=== PATIENT | male | born 1945 | race Caucasian/White ===

== ENCOUNTER 2020-04-02 13:02 | Emergency (ER) | payer OTHER, SELFPAY ==
--- NOTE | ~2020-04-02 | XR_ITS ---
EXAMINATION: CHEST, LEFT HIP, AND LUMBAR SPINE. CLINICAL INFORMATION: Weakness and pain. COMPARISON: Chest x-ray of December 01, 2017 TECHNIQUE: AP and lateral chest, 3 view lumbar spine, and AP pelvis and 2 views of the left hip. FINDINGS: AP and lateral views of the chest demonstrate chronic left base pleural-parenchymal scarring. No acute parenchymal disease, pneumothorax, or pleural effusion. Cardiopericardial silhouette is mildly enlarged. No evidence of pulmonary edema. 3 views of the lumbar spine demonstrate 5 nonrib-bearing lumbar vertebra. No acute fracture, spondylolisthesis, spondylolysis is appreciated. There is significant narrowing of the L4-L5 and L5-S1 disc spaces with bilateral facet arthropathy L4-S1. There is partial lumbarization of S1. Degenerative marginal spurring is seen at multiple levels. No destructive bony lesions appreciated. There is no evidence of acute fracture or diastases of the pelvis. No definite fusion or widening of the sacroiliac joints. Changes of enthesopathy seen about the pelvis. No destructive bony lesions are identified. Hip joint spaces appear maintained with some mild collar spurring. 2 views of the left hip demonstrate a sclerotic lesion within the femoral head most likely representing a bone island and not typical appearance of avascular ischemic necrosis. No femoral head flattening is seen and no lucency is appreciated. Hip joint space maintained. No acute fracture or dislocation. XR/XR lumbar spine 2-3V IMPRESSION: No acute parenchymal disease within the chest. Lumbar spondylosis most prominent L4-S1. No acute fracture, spondylolisthesis, or spondylolysis. No acute fracture or diastases of the pelvis. No acute fracture or dislocation of the left hip.
--- NOTE | ~2020-04-02 | CT_ITS ---
EXAMINATION: CT ABDOMEN AND PELVIS WITHOUT CONTRAST CLINICAL INFORMATION: Abdominal pain and distention. COMPARISON: 08/21/2011. Renal ultrasound 07/19/2016. TECHNIQUE: Multidetector volumetric imaging was performed from the superior aspect of the liver through the pubic symphysis. Sagittal and coronal reformatted images were obtained on the technologist's workstation. This CT examination was performed using dose optimization techniques as appropriate, variously including the following: *Automated exposure control *Adjustment of mA and/or kV according to patient size (this includes techniques or standardized protocols for targeted exams where dose is matched to indication/reason for exam; i.e. extremities or head) *Use of iterative reconstruction technique DLP: 1291 mGy-cm FINDINGS: LUNG BASES: Bibasilar atelectasis. The visualized cardiac structures are unremarkable. LIVER, GALLBLADDER, AND BILIARY TREE: The liver is normal in size, shape, and attenuation. No focal hepatic lesion or biliary ductal dilatation is present. The gallbladder is unremarkable with no evidence of radiopaque gallstones, gallbladder wall thickening, or obvious pericholecystic inflammatory changes. PANCREAS: Unremarkable. SPLEEN: Unremarkable. ADRENAL GLANDS: Unremarkable. KIDNEYS AND URETERS: The kidneys are normal in size, shape, and attenuation. No hydronephrosis, hydroureter, or calculi seen. No perinephric stranding. Multiple right-sided renal cysts. Questionable left lower pole cortical lesion measuring 3 cm. This likely corresponds to the cyst seen on the prior ultrasound from 2016. Right lower pole 0.3 cm calculus is 12.5 cm from the posterior axillary line. BLADDER: Unremarkable. GASTROINTESTINAL TRACT: The stomach is distended without wall thickening. The small bowel is normal in caliber. No obstruction. No colonic wall thickening or inflammatory change. Prominent stool in the rectum. Normal appendix. No free air or free fluid. ABDOMINAL WALL: Fat-containing left inguinal hernia. LYMPH NODES: Normal. VASCULAR: Normal caliber aorta with mild atherosclerotic calcification. PELVIC VISCERA: Significantly enlarged prostate impinging upon the bladder. The prostate measures 7.7 cm transverse. The seminal vesicles are unremarkable. OSSEOUS STRUCTURES: No acute or suspicious osseous abnormality. Degenerative changes of the spine. DISH. Degenerative changes at both hips. CT/CT abdomen pelvis wo con IMPRESSION: No acute finding of the abdomen or pelvis. Multiple right renal cysts. Cortical lesion of the lower pole of the left kidney likely corresponds to the cyst seen on previous ultrasound, but could be reevaluated on ultrasound given the indeterminate appearance on the CT. Gaseous distention of the stomach without wall thickening. Prominent stool in the rectum. Prostatomegaly.
--- NOTE | ~2020-04-02 | XR_ITS ---
EXAMINATION: CHEST, LEFT HIP, AND LUMBAR SPINE. CLINICAL INFORMATION: Weakness and pain. COMPARISON: Chest x-ray of December 01, 2017 TECHNIQUE: AP and lateral chest, 3 view lumbar spine, and AP pelvis and 2 views of the left hip. FINDINGS: AP and lateral views of the chest demonstrate chronic left base pleural-parenchymal scarring. No acute parenchymal disease, pneumothorax, or pleural effusion. Cardiopericardial silhouette is mildly enlarged. No evidence of pulmonary edema. 3 views of the lumbar spine demonstrate 5 nonrib-bearing lumbar vertebra. No acute fracture, spondylolisthesis, spondylolysis is appreciated. There is significant narrowing of the L4-L5 and L5-S1 disc spaces with bilateral facet arthropathy L4-S1. There is partial lumbarization of S1. Degenerative marginal spurring is seen at multiple levels. No destructive bony lesions appreciated. There is no evidence of acute fracture or diastases of the pelvis. No definite fusion or widening of the sacroiliac joints. Changes of enthesopathy seen about the pelvis. No destructive bony lesions are identified. Hip joint spaces appear maintained with some mild collar spurring. 2 views of the left hip demonstrate a sclerotic lesion within the femoral head most likely representing a bone island and not typical appearance of avascular ischemic necrosis. No femoral head flattening is seen and no lucency is appreciated. Hip joint space maintained. No acute fracture or dislocation. XR/XR chest 2V IMPRESSION: No acute parenchymal disease within the chest. Lumbar spondylosis most prominent L4-S1. No acute fracture, spondylolisthesis, or spondylolysis. No acute fracture or diastases of the pelvis. No acute fracture or dislocation of the left hip.
--- NOTE | ~2020-04-02 | XR_ITS ---
EXAMINATION: CHEST, LEFT HIP, AND LUMBAR SPINE. CLINICAL INFORMATION: Weakness and pain. COMPARISON: Chest x-ray of December 01, 2017 TECHNIQUE: AP and lateral chest, 3 view lumbar spine, and AP pelvis and 2 views of the left hip. FINDINGS: AP and lateral views of the chest demonstrate chronic left base pleural-parenchymal scarring. No acute parenchymal disease, pneumothorax, or pleural effusion. Cardiopericardial silhouette is mildly enlarged. No evidence of pulmonary edema. 3 views of the lumbar spine demonstrate 5 nonrib-bearing lumbar vertebra. No acute fracture, spondylolisthesis, spondylolysis is appreciated. There is significant narrowing of the L4-L5 and L5-S1 disc spaces with bilateral facet arthropathy L4-S1. There is partial lumbarization of S1. Degenerative marginal spurring is seen at multiple levels. No destructive bony lesions appreciated. There is no evidence of acute fracture or diastases of the pelvis. No definite fusion or widening of the sacroiliac joints. Changes of enthesopathy seen about the pelvis. No destructive bony lesions are identified. Hip joint spaces appear maintained with some mild collar spurring. 2 views of the left hip demonstrate a sclerotic lesion within the femoral head most likely representing a bone island and not typical appearance of avascular ischemic necrosis. No femoral head flattening is seen and no lucency is appreciated. Hip joint space maintained. No acute fracture or dislocation. XR/XR hip LT w PEL1V IMPRESSION: No acute parenchymal disease within the chest. Lumbar spondylosis most prominent L4-S1. No acute fracture, spondylolisthesis, or spondylolysis. No acute fracture or diastases of the pelvis. No acute fracture or dislocation of the left hip.
--- NOTE | ~2020-04-02 | CT_ITS ---
EXAMINATION: CT HIP WITHOUT CONTRAST, LEFT CLINICAL INFORMATION: Pain. Evaluate for a fracture. COMPARISON: Left hip radiographs done earlier the same day. TECHNIQUE: Contiguous axial CT images of the left hip were obtained without contrast. Coronal and sagittal reformats were provided and reviewed. This CT examination was performed using dose optimization techniques as appropriate, variously including the following: *Automated exposure control *Adjustment of mA and/or kV according to patient size (this includes techniques or standardized protocols for targeted exams where dose is matched to indication/reason for exam; i.e. extremities or head) *Use of iterative reconstruction technique DLP: 453 mGy-cm FINDINGS: No acute fracture or dislocation. Mild to moderate left hip joint space narrowing with marginal osteophytes. Mild degenerative arthritis at the symphysis pubis. Moderate degenerative arthritis at the left sacroiliac joint. Subchondral cystic change at the left acetabulum. Focal sclerosis within the anterior left femoral head. No concerning lytic or blastic osseous lesion. No abnormal soft tissue mass or fluid collection. Prominent stool within the rectum. Otherwise, the visualized pelvic structures are unremarkable. Fat-containing left inguinal hernia. CT/CT hip LT wo con IMPRESSION: No acute fracture or dislocation. Moderate left hip osteoarthritis. Moderate left sacroiliac joint and more mild sepsis pubis degenerative arthritis. Prominent stool within the rectum.
--- NOTE | 2020-04-02 13:32 | ECG_ITS ---
Test Reason : WEAKNESS Blood Pressure : / mmHG Vent. Rate : 060 BPM Atrial Rate : 060 BPM P-R Int : 190 ms QRS Dur : 122 ms QT Int : 452 ms P-R-T Axes : -04 -36 086 degrees QTc Int : 452 ms Sinus rhythm with Premature supraventricular complexes Left axis deviation Left ventricular hypertrophy with QRS widening and repolarization abnormality Abnormal ECG When compared with ECG of 01-DEC-2017 14:19, Premature supraventricular complexes are now Present Non-specific change in ST segment in Inferior leads Referred By: Lainey Wright Electronically Signed By:JOSE STEVENS MD
[2020-04-02 13:34] VITALS: BP 139/68; PULSE 53; RESP 17; TEMP 36.6; O2SAT 94; BMI 41.3
--- NOTE | 2020-04-02 13:35 | ED_ITS ---
HPI - General Adult General Chief complaint: Extremity Injury, Lower <Lainey Wright NP - Last Filed: 04/02/20 19:42> Stated complaint: LEFT HIP PAIN <Lainey Wright NP - Last Filed: 04/02/20 19:42> Time Seen by Provider: 04/02/20 13:05 <Lainey Wrihgt NP - Last Filed: 04/02/20 19:42> Source: patient and EMS <Lainey Wright NP - Last Filed: 04/02/20 19:42> Mode of arrival: EMS <Lainey Wright NP - Last Filed: 04/02/20 19:42> Limitations: no limitations <Lainey Wright NP - Last Filed: 04/02/20 19:42> History of Present Illness HPI narrative: 74-year-old male coming from home with a past medical history of anxiety, depression, hypertension here with complaints of left-sided hip pain times several days. The patient tells me that 2 days ago he was walking with his walker and he lost his balance causing a twisting motion of his lower back and hip. He did not fall to the ground. There was no head injury or loss of consciousness. He tells me since then he has had left buttocks and left hip pain and has been unable to bear weight on that side. Tells me he has been sitting in a recliner. He did have his son come visit him yesterday who brought him a sandwich and he ate that with a small glass of water but nothing else yesterday. Today the home care nurses came to his house and made him breakfast and give him something to drink and recommended transfer to the hospital as he was unable to get up on his own. The patient tells me that he has been in his recliner for the last 48 hours. He tells me he has been unable to get up to use the bathroom and has been incontinent of urine. He is also complaining of some mild weakness which is generalized. No fever, chest pain, shortness of breath, abdominal pain, vomiting, diarrhea. Pain radiates from left buttocks the left hip. There is no back pain. Taking Tylenol home with continued symptoms. No saddle anesthesia. No numbness or tingling. No fevers or chills. Patient lives alone. <Lainey Wright NP - Last Filed: 04/02/20 19:42> Onset (ago): day(s) <Lainey Wright NP - Last Filed: 04/02/20 19:42> Related Data Home medications: Home Medications Medication Instructions Recorded Confirmed Wellbutrin 150 mg PO BID 04/02/20 04/02/20 Xanax 0.25 mg PO TID PRN 04/02/20 04/02/20 amlodipine 5 mg PO DAILY 04/02/20 04/02/20 citalopram 20 mg PO DAILY 04/02/20 04/02/20 clonidine 0.2 mg TRANSDERMAL QWEEK 04/02/20 04/02/20 gabapentin 300 mg PO BID 04/02/20 04/02/20 losartan 100 mg PO BEDTIME 04/02/20 04/02/20 olanzapine 2.5 mg PO BEDTIME 04/02/20 04/02/20 oxybutynin chloride 10 mg PO DAILY 04/02/20 04/02/20 propranolol 80 mg PO BID 04/02/20 04/02/20 Previous Rx's Medication Instructions Recorded alprazolam [Xanax] 0.125 mg PO TID #10 tab 04/04/20 cephalexin 500 mg PO BID #14 cap 04/04/20 lidocaine [Lidoderm] 1 patch TOPICAL DAILY #15 ea 04/04/20 naproxen 500 mg PO BID #10 tab 04/04/20 <Lainey Wright NP - Last Filed: 04/02/20 19:42> Allergies/adverse reactions: Allergies Allergy/AdvReac Type Severity Reaction Status Date / Time No Known Allergies Allergy Verified 04/02/20 15:54 <Lainey Wright NP - Last Filed: 04/02/20 19:42> Review of Systems Review of Systems: Yes all other systems are reviewed and are negative <Lainey Wright NP - Last Filed: 04/02/20 19:42> Constitutional: Constitutional: Reports no additional constitutional complaints, Denies body ache(s), Denies chills, Denies fever(s), Denies headache(s) and Reports weakness <Lainey Wright NP - Last Filed: 04/02/20 19:42> Eyes: Eyes: Reports no additional eye complaints and Denies change in vision <Lainey Wright NP - Last Filed: 04/02/20 19:42> ENT: Reports system reviewed and no additional complaints, except as documented, Denies dizziness, Denies headache(s), Denies nasal congestion, Denies nasal discharge and Denies neck pain <Lainey Wright STICKER MACHINE OPERATOR - Last Filed: 04/02/20 19:42> Cardiovascular: Cardiovascular: Reports no additional cardiovascular complaints, Denies chest pain, Denies leg edema and Denies dyspnea <Lainey Wright STICKER MACHINE OPERATOR - Last Filed: 04/02/20 19:42> Respiratory: Respiratory: Reports no additional respiratory complaints, Denies cough and Denies dyspnea <Lainey Wright STICKER MACHINE OPERATOR - Last Filed: 04/02/20 19:42> Gastrointestinal: Gastrointestinal: Reports no additional gastrointestinal complaints, Denies abdominal pain, Denies diarrhea, Denies nausea and Denies vomiting <Lainey Wright NP - Last Filed: 04/02/20 19:42> Genitourinary: Genitourinary: Denies urinary incontinence <Lainey Wright NP - Last Filed: 04/02/20 19:42> Musculoskeletal: Musculoskeletal: Reports no additional musculoskeletal complaints, Denies back pain, Reports arthralgias, Reports joint swelling, Denies neck pain, Denies numbness and Denies tingling <Lainey Wright NP - Last Filed: 04/02/20 19:42> Integumentary/Breasts: Skin/Breast: Reports system reviewed and no additional complaints, except as docu and Denies rash <Lainey Wright NP - Last Filed: 04/02/20 19:42> Neurologic: Reports system reviewed and no additional complaints, except as documented, Denies Abnormal speech present, Denies dizziness, Denies headache(s), Denies numbness, Denies tingling and Reports weakness <Lainey Wright NP - Last Filed: 04/02/20 19:42> PMFSH Past Medical History Attestation statement: The following information was validated with the patient. <Lainey Rueda i, NP - Last Filed: 04/02/20 19:42> Source: old records reviewed and nursing notes reviewed <Lainey Wright NP - Last Filed: 04/02/20 19:42> Medical History: Medical History Anxiety Depression HTN (hypertension) <Lainey Wright NP - Last Filed: 04/02/20 19:42> Social History Social History: Social History Alcohol intake: never Smoking Status: Never smoker Use of substances other than those prescribed or required for medical reasons: No Advance Directives: No Advance Directives Information Provided: No <Lainey Wright NP - Last Filed: 04/02/20 19:42> Physical Exam Vital Signs: Vital Signs: Last Vital Signs Temp 97.7 F 04/03/20 00:00 Pulse 67 04/04/20 09:45 Resp 18 04/04/20 07:26 BP 134/75 04/04/20 09:45 Pulse Ox 96 04/04/20 07:26 Body Mass Index 41.3 <Lainey Wright NP - Last Filed: 04/02/20 19:42> Vital Signs: Last Vital Signs Temp 97.7 F 04/03/20 00:00 Pulse 67 04/04/20 09:45 Resp 18 04/04/20 07:26 BP 134/75 04/04/20 09:45 Pulse Ox 96 04/04/20 07:26 Body Mass Index 41.3 <Jovita Toney DO - Last Filed: 04/03/20 07:06> Vital Signs: Last Vital Signs Temp 97.7 F 04/03/20 00:00 Pulse 67 04/04/20 09:45 Resp 18 04/04/20 07:26 BP 134/75 04/04/20 09:45 Pulse Ox 96 04/04/20 07:26 Body Mass Index 41.3 <Gladys Graves NP - Last Filed: 04/04/20 01:42> Vital Signs: Last Vital Signs Temp 97.7 F 04/03/20 00:00 Pulse 67 04/04/20 09:45 Resp 18 04/04/20 07:26 BP 134/75 04/04/20 09:45 Pulse Ox 96 04/04/20 07:26 Body Mass Index 41.3 <Arsh Zamudio MD - Last Filed: 04/10/20 07:53> Vital Signs: Last Vital Signs Temp 97.7 F 04/03/20 00:00 Pulse 67 04/04/20 09:45 Resp 18 04/04/20 07:26 BP 134/75 04/04/20 09:45 Pulse Ox 96 04/04/20 07:26 Body Mass Index 41.3 <Rehan Merchant NP - Last Filed: 04/05/20 10:21> Const: General: cooperative, healthy appearing, comfortable and no acute distress <Lainey Wright NP - Last Filed: 04/02/20 19:42> Orientation/consciousness: patient oriented x3 <Lainey Wright NP - Last Filed: 04/02/20 19:42> Limitations: no limitations <Lainey Wright NP - Last Filed: 04/02/20 19:42> HENMT: Head: Yes normal to inspection <Lainey Wright NP - Last Filed: 04/02/20 19:42> Ears: hearing grossly normal bilaterally <Lainey Wright NP - Last Filed: 04/02/20 19:42> General nose exam: Normal external nose present <Lainey Wright NP - Last Filed: 04/02/20 19:42> Face and sinus: Yes normal facial exam <Lainey Wright NP - Last Filed: 04/02/20 19:42> Mouth: Normal oral and palatal mucosa present <Lainey Wright NP - Last Filed: 04/02/20 19:42> Throat: Yes posterior oropharynx normal <Lainey Wright NP - Last Filed: 04/02/20 19:42> Eyes: General: appearance normal, both eyes and all related structures <Lainey Wright NP - Last Filed: 04/02/20 19:42> Pupils: Equal, round and reactive pupils present <Lainey Wright NP - Last Filed: 04/02/20 19:42> Neck: Neck: Yes normal visual inspection <Lainey Wright NP - Last Filed: 04/02/20 19:42> Chest: Chest palpation & inspection: normal inspection of the chest <Lainey Wright NP - Last Filed: 04/02/20 19:42> Resp: Effort & Inspection: normal respiratory effort <Lainey Wright NP - Last Filed: 04/02/20 19:42> Auscultation: clear to auscultation bilaterally <Lainey Wright NP - Last Filed: 04/02/20 19:42> Cardio: Rate: regular rate <Lainey Wright NP - Last Filed: 04/02/20 19:42> Rhythm: regular rhythm <Lainey Wright NP - Last Filed: 04/02/20 19:42> Peripheral pulses: Peripheral pulses 2+ throughout <Lainey Wright NP - Last Filed: 04/02/20 19:42> GI: Inspection: Yes normal to inspection <Lainey Wright NP - Last Filed: 04/02/20 19:42> Palpation (GI): Soft to palpation and nontender <Lainey Wright NP - Last Filed: 04/02/20 19:42> Auscultation: normal bowel sounds <Lainey Wright NP - Last Filed: 04/02/20 19:42> Back/Spine/Pelvis: Other: Left buttocks tenderness, left posterior and left lateral hip tenderness on exam. No obvious deformity, shortening or rotation. Patient is able to perform a straight leg raise although has pain with this. No midline tenderness, step-offs or deformities over the vertebral spine <Lainey Wright NP - Last Filed: 04/02/20 19:42> Thoracic/Lumbar Spine: thoracic and lumbar spine normal to inspection <Lainey Wright NP - Last Filed: 04/02/20 19:42> Skin: Other: Stage II pressure ulcer to coccyx <Lainey Wright NP - Last Filed: 04/02/20 19:42> General skin exam: no rashes or lesions noted <Lainey Wright NP - Last Filed: 04/02/20 19:42> Neuro: Other: 4/5 strength all 4 extremities <Lainey Wright NP - Last Filed: 04/02/20 19:42> General: patient oriented x3, no focal motor deficits, normal sensation to monofilament and Unable to assess gait <Lainey Wright NP - Last Filed: 04/02/20 19:42> Cranial nerves: Yes Equal, round and reactive pupils present <Lainey Wright NP - Last Filed: 04/02/20 19:42> Cognition (Neuro): normal cognition <Lainey Wright NP - Last Filed: 04/02/20 19:42> Speech: No Abnormal speech present <Lainey Wright NP - Last Filed: 04/02/20 19:42> Gait exam (Neuro): Unable to assess gait <Lainey Wright NP - Last Filed: 04/02/20 19:42> Extrem: Other: Bilateral mild 1+ pitting edema over the feet. No erythema, warmth. <Lainey Wright NP - Last Filed: 04/02/20 19:42> General: Yes normal to inspection and Yes no calf tenderness <Lainey Wright NP - Last Filed: 04/02/20 19:42> Course Course Course Narrative: 74-year-old male coming from home with generalized weakness, atraumatic left hip pain times 2-3 days with difficulty with ambulation. Patient has been in his recliner for the last 48 hours unable to get up to use the bathroom, make food for himself or perform ADLs. On exam the patient has no focal neurological deficits, stable vital signs, has pain over the posterior and lateral left hip but no obvious shortening, deformity or rotation. Will check labs, EKG, imaging of hip, UA. 1515-x-ray of the hip shows a sclerotic lesion within the femoral head most likely representing a bone island and not typical of a vascular ischemic necrosis. Due to a traumatic pain which is very severe and patient is unable to bear weight will discuss with Orthopedics. No evidence of acute fracture or dislocation of the hip. CXR no acute parenchymal disease within the chest. Lumbar spondylosis most prominent L4-S1. Discussed with Karla LAURENT from orthopedics. Does not appear to have AVN. Recommended checking Ct left hip to eval for occult fracture. 1630-Ct hip shows no acute fracture or dislocation. Moderate left hip osteoar thritis. 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 Prominent stool within the rectum. Labs unremarkable. COVID screen negative. UA pending. Pt cannot ambulate safely for discharge home. Will need STR placement. PT and CM consults placed. 1939-UA is consistent with the UTI. The patient has no fever and no leukocytosis or any other systemic signs or symptoms of infection. Antibiotics ordered. <Lainey Wright NP - Last Filed: 04/02/20 19:42> Awaiting for placement at [facility] <Arsh Zamudio MD - Last Filed: 04/10/20 07:53> Reevaluation(s) Reevaluation #1: I have reviewed the chart <Arsh Zamudio MD - Last Filed: 04/10/20 07:53> Medical Decision Making MDM Narrative Medical decision making narrative: Arthritis versus fracture versus sprain, electrolyte abnormality, anemia, rhabdomyolysis, dehydration <Lainey Wright NP - Last Filed: 04/02/20 19:42> Medical Records Medical records reviewed: Yes I reviewed the patient's medical records. <Lainey Wright NP - Last Filed: 04/02/20 19:42> Lab Data Lab results reviewed: Yes I reviewed the patient's lab results. <Lainey Wright NP - Last Filed: 04/02/20 19:42> Result diagrams: : 04/02/20 13:51 04/02/20 13:51 <Lainey Wright NP - Last Filed: 04/02/20 19:42> Labs: Lab Results 04/02/20 04/02/20 04/02/20 Range/Units 13:51 13:51 13:51 WBC 9.4 (4.8-10.8) X10*3/uL RBC 5.27 (4.60-5.80) X10*6/uL Hgb 16.5 (14.0-18.0) g/dl Hct 49.4 (42-52) % MCV 93.7 (80-98) fL MCH 31.3 (27.0-33.0) pg MCHC 33.4 (31.0-36.0) g/dl RDW 13.3 (11.0-16.0) % Plt Count 206 (160-400) X10*3/uL MPV 11.0 (9.4-12.4) fL Immature Gran % (Auto) 0.3 (0.0-0.4) % Neut % (Auto) 68.4 (45-73) % Lymph % (Auto) 21.5 (20-40) % [place] % (Auto) 7.1 (2-11) % Eos % (Auto) 2.3 (0-4) % Baso % (Auto) 0.4 (0-2) % Lymph # (Auto) 2.0 (1.2-4.9) X10*3/uL [place] # (Auto) 0.7 (0.1-1.2) X10*3/uL Eos # (Auto) 0.2 (0.0-0.4) X10*3/uL Baso # (Auto) 0.0 (0.0-0.2) X10*3/uL Abs Immat Gran (auto) 0.03 (0.00-0.03) X10*3/uL Absolute Neuts (auto) 6.4 (2.0-8.3) X10*3/uL Absolute Nucleated RBC 0.000 (0.0-0.012) X10*3/uL Nucleated RBC % (auto) 0.0 (0.0-0.2) /100WBC PT (10.8-13.0) SEC INR (0.9-1.1) Sodium 143 (135-145) mmol/L Potassium 4.6 (3.3-5.1) mmol/L Chloride 105 (96-108) mmol/L Carbon Dioxide 29 (22-29) mmol/L Anion Gap 14 (12-20) BUN 19 H (9-16) mg/dL Creatinine 1.00 (0.5-1.4) mg/dL Estim Creat Clear Calc 94.6 Estimated GFR > 60 Random Glucose 170 H (60-115) mg/dL Lactic Acid 1.7 (0.5-2.0) mmol/L Calcium 9.2 (8.4-10.2) mg/dL Magnesium 2.1 (1.6-2.6) mg/dL Total Bilirubin 1.2 H (0.0-1.0) mg/dL Direct Bilirubin 0.3 (0.0-0.5) mg/dL AST 22 (5-37) U/L ALT 17 (0-40) U/L Alkaline Phosphatase 142 H (39-117) U/L Total Creatine Kinase (38-174) U/L Troponin I High Sens (<3.5-35.0) ng/L B-Natriuretic Peptide (<100) pg/mL Total Protein 6.8 (6.5-8.0) g/dL Albumin 3.9 (3.5-5.0) g/dL Urine Color Urine Appearance Urine pH (5.0-8.0) Ur Specific [place] (1.005-1.025) Urine Protein (NEG-TRACE) MG/DL Urine Glucose (UA) (NEG) MG/DL Urine Ketones (NEG) MG/DL Urine Blood (NEG) Urine Nitrite (NEG) Ur Leukocyte Esterase (NEG) Urine RBC (0) /HPF Urine WBC (0-4) /HPF Ur Squamous Epith Cells /LPF Urine Bacteria /LPF Urine Yeast /HPF COVID-19 (JENNA) (Negative) COVID-19 Clin Com 04/02/20 04/02/20 04/02/20 Range/Units 13:51 13:51 13:51 WBC (4.8-10.8) X10*3/uL RBC (4.60-5.80) X10*6/uL Hgb (14.0-18.0) g/dl Hct (42-52) % MCV (80-98) fL MCH (27.0-33.0) pg MCHC (31.0-36.0) g/dl RDW (11.0-16.0) % Plt Count (160-400) X10*3/uL MPV (9.4-12.4) fL Immature Gran % (Auto) (0.0-0.4) % Neut % (Auto) (45-73) % Lymph % (Auto) (20-40) % [place] % (Auto) (2-11) % Eos % (Auto) (0-4) % Baso % (Auto) (0-2) % Lymph # (Auto) (1.2-4.9) X10*3/uL [place] # (Auto) (0.1-1.2) X10*3/uL Eos # (Auto) (0.0-0.4) X10*3/uL Baso # (Auto) (0.0-0.2) X10*3/uL Abs Immat Gran (auto) (0.00-0.03) X10*3/uL Absolute Neuts (auto) (2.0-8.3) X10*3/uL Absolute Nucleated RBC (0.0-0.012) X10*3/uL Nucleated RBC % (auto) (0.0-0.2) /100WBC PT (10.8-13.0) SEC INR (0.9-1.1) Sodium (135-145) mmol/L Potassium (3.3-5.1) mmol/L Chloride (96-108) mmol/L Carbon Dioxide (22-29) mmol/L Anion Gap (12-20) BUN (9-16) mg/dL Creatinine (0.5-1.4) mg/dL Estim Creat Clear Calc Estimated GFR Random Glucose (60-115) mg/dL Lactic Acid (0.5-2.0) mmol/L Calcium (8.4-10.2) mg/dL Magnesium (1.6-2.6) mg/dL Total Bilirubin (0.0-1.0) mg/dL Direct Bilirubin (0.0-0.5) mg/dL AST (5-37) U/L ALT (0-40) U/L Alkaline Phosphatase (39-117) U/L Total Creatine Kinase 35 L (38-174) U/L Troponin I High Sens 10.4 (<3.5-35.0) ng/L B-Natriuretic Peptide 80 (<100) pg/mL Total Protein (6.5-8.0) g/dL Albumin (3.5-5.0) g/dL Urine Color Urine Appearance Urine pH (5.0-8.0) Ur Specific [place] (1.005-1.025) Urine Protein (NEG-TRACE) MG/DL Urine Glucose (UA) (NEG) MG/DL Urine Ketones (NEG) MG/DL Urine Blood (NEG) Urine Nitrite (NEG) Ur Leukocyte Esterase (NEG) Urine RBC (0) /HPF Urine WBC (0-4) /HPF Ur Squamous Epith Cells /LPF Urine Bacteria /LPF Urine Yeast /HPF COVID-19 (JENNA) Negative (Negative) COVID-19 Clin Com See Note 04/02/20 04/02/20 Range/Units 15:12 17:35 WBC (4.8-10.8) X10*3/uL RBC (4.60-5.80) X10*6/uL Hgb (14.0-18.0) g/dl Hct (42-52) % MCV (80-98) fL MCH (27.0-33.0) pg MCHC (31.0-36.0) g/dl RDW (11.0-16.0) % Plt Count (160-400) X10*3/uL MPV (9.4-12.4) fL Immature Gran % (Auto) (0.0-0.4) % Neut % (Auto) (45-73) % Lymph % (Auto) (20-40) % [place] % (Auto) (2-11) % Eos % (Auto) (0-4) % Baso % (Auto) (0-2) % Lymph # (Auto) (1.2-4.9) X10*3/uL [place] # (Auto) (0.1-1.2) X10*3/uL Eos # (Auto) (0.0-0.4) X10*3/uL Baso # (Auto) (0.0-0.2) X10*3/uL Abs Immat Gran (auto) (0.00-0.03) X10*3/uL Absolute Neuts (auto) (2.0-8.3) X10*3/uL Absolute Nucleated RBC (0.0-0.012) X10*3/uL Nucleated RBC % (auto) (0.0-0.2) /100WBC PT 14.3 H (10.8-13.0) SEC INR 1.2 H (0.9-1.1) Sodium (135-145) mmol/L Potassium (3.3-5.1) mmol/L Chloride (96-108) mmol/L Carbon Dioxide (22-29) mmol/L Anion Gap (12-20) BUN (9-16) mg/dL Creatinine (0.5-1.4) mg/dL Estim Creat Clear Calc Estimated GFR Random Glucose (60-115) mg/dL Lactic Acid (0.5-2.0) mmol/L Calcium (8.4-10.2) mg/dL Magnesium (1.6-2.6) mg/dL Total Bilirubin (0.0-1.0) mg/dL Direct Bilirubin (0.0-0.5) mg/dL AST (5-37) U/L ALT (0-40) U/L Alkaline Phosphatase (39-117) U/L Total Creatine Kinase (38-174) U/L Troponin I High Sens (<3.5-35.0) ng/L B-Natriuretic Peptide (<100) pg/mL Total Protein (6.5-8.0) g/dL Albumin (3.5-5.0) g/dL Urine Color YELLOW Urine Appearance CLOUDY Urine pH 6.0 (5.0-8.0) Ur Specific [place] 1.025 (1.005-1.025) Urine Protein 1+ H (NEG-TRACE) MG/DL Urine Glucose (UA) NEG (NEG) MG/DL Urine Ketones NEG (NEG) MG/DL Urine Blood 3+ H (NEG) Urine Nitrite NEG (NEG) Ur Leukocyte Esterase 2+ H (NEG) Urine RBC TNTC H (0) /HPF Urine WBC 50-75 H (0-4) /HPF Ur Squamous Epith Cells 2+ /LPF Urine Bacteria NONE /LPF Urine Yeast 2+ /HPF COVID-19 (JENNA) (Negative) COVID-19 Clin Com <Lainey Wright NP - Last Filed: 04/02/20 19:42> Lab Results 04/02/20 04/02/20 04/02/20 Range/Units 13:51 13:51 13:51 WBC 9.4 (4.8-10.8) X10*3/uL RBC 5.27 (4.60-5.80) X10*6/uL Hgb 16.5 (14.0-18.0) g/dl Hct 49.4 (42-52) % MCV 93.7 (80-98) fL MCH 31.3 (27.0-33.0) pg MCHC 33.4 (31.0-36.0) g/dl RDW 13.3 (11.0-16.0) % Plt Count 206 (160-400) X10*3/uL MPV 11.0 (9.4-12.4) fL Immature Gran % (Auto) 0.3 (0.0-0.4) % Neut % (Auto) 68.4 (45-73) % Lymph % (Auto) 21.5 (20-40) % [place] % (Auto) 7.1 (2-11) % Eos % (Auto) 2.3 (0-4) % Baso % (Auto) 0.4 (0-2) % Lymph # (Auto) 2.0 (1.2-4.9) X10*3/uL [place] # (Auto) 0.7 (0.1-1.2) X10*3/uL Eos # (Auto) 0.2 (0.0-0.4) X10*3/uL Baso # (Auto) 0.0 (0.0-0.2) X10*3/uL Abs Immat Gran (auto) 0.03 (0.00-0.03) X10*3/uL Absolute Neuts (auto) 6.4 (2.0-8.3) X10*3/uL Absolute Nucleated RBC 0.000 (0.0-0.012) X10*3/uL Nucleated RBC % (auto) 0.0 (0.0-0.2) /100WBC PT (10.8-13.0) SEC INR (0.9-1.1) Sodium 143 (135-145) mmol/L Potassium 4.6 (3.3-5.1) mmol/L Chloride 105 (96-108) mmol/L Carbon Dioxide 29 (22-29) mmol/L Anion Gap 14 (12-20) BUN 19 H (9-16) mg/dL Creatinine 1.00 (0.5-1.4) mg/dL Estim Creat Clear Calc 94.6 Estimated GFR > 60 Random Glucose 170 H (60-115) mg/dL Lactic Acid 1.7 (0.5-2.0) mmol/L Calcium 9.2 (8.4-10.2) mg/dL Magnesium 2.1 (1.6-2.6) mg/dL Total Bilirubin 1.2 H (0.0-1.0) mg/dL Direct Bilirubin 0.3 (0.0-0.5) mg/dL AST 22 (5-37) U/L ALT 17 (0-40) U/L Alkaline Phosphatase 142 H (39-117) U/L Total Creatine Kinase (38-174) U/L Troponin I High Sens (<3.5-35.0) ng/L B-Natriuretic Peptide (<100) pg/mL Total Protein 6.8 (6.5-8.0) g/dL Albumin 3.9 (3.5-5.0) g/dL Urine Color Urine Appearance Urine pH (5.0-8.0) Ur Specific [place] (1.005-1.025) Urine Protein (NEG-TRACE) MG/DL Urine Glucose (UA) (NEG) MG/DL Urine Ketones (NEG) MG/DL Urine Blood (NEG) Urine Nitrite (NEG) Ur Leukocyte Esterase (NEG) Urine RBC (0) /HPF Urine WBC (0-4) /HPF Ur Squamous Epith Cells /LPF Urine Bacteria /LPF Urine Yeast /HPF COVID-19 ([facility]ENNA) (Negative) COVID-19 Clin Com 04/02/20 04/02/20 04/02/20 Range/Units 13:51 13:51 13:51 WBC (4.8-10.8) X10*3/uL RBC (4.60-5.80) X10*6/uL Hgb (14.0-18.0) g/dl Hct (42-52) % MCV (80-98) fL MCH (27.0-33.0) pg MCHC (31.0-36.0) g/dl RDW (11.0-16.0) % Plt Count (160-400) X10*3/uL MPV (9.4-12.4) fL Immature Gran % (Auto) (0.0-0.4) % Neut % (Auto) (45-73) % Lymph % (Auto) (20-40) % [place] % (Auto) (2-11) % Eos % (Auto) (0-4) % Baso % (Auto) (0-2) % Lymph # (Auto) (1.2-4.9) X10*3/uL [place] # (Auto) (0.1-1.2) X10*3/uL Eos # (Auto) (0.0-0.4) X10*3/uL Baso # (Auto) (0.0-0.2) X10*3/uL Abs Immat Gran (auto) (0.00-0.03) X10*3/uL Absolute Neuts (auto) (2.0-8.3) X10*3/uL Absolute Nucleated RBC (0.0-0.012) X10*3/uL Nucleated RBC % (auto) (0.0-0.2) /100WBC PT (10.8-13.0) SEC INR (0.9-1.1) Sodium (135-145) mmol/L Potassium (3.3-5.1) mmol/L Chloride (96-108) mmol/L Carbon Dioxide (22-29) mmol/L Anion Gap (12-20) BUN (9-16) mg/dL Creatinine (0.5-1.4) mg/dL Estim Creat Clear Calc Estimated GFR Random Glucose (60-115) mg/dL Lactic Acid (0.5-2.0) mmol/L Calcium (8.4-10.2) mg/dL Magnesium (1.6-2.6) mg/dL Total Bilirubin (0.0-1.0) mg/dL Direct Bilirubin (0.0-0.5) mg/dL AST (5-37) U/L ALT (0-40) U/L Alkaline Phosphatase (39-117) U/L Total Creatine Kinase 35 L (38-174) U/L Troponin I High Sens 10.4 (<3.5-35.0) ng/L B-Natriuretic Peptide 80 (<100) pg/mL Total Protein (6.5-8.0) g/dL Albumin (3.5-5.0) g/dL Urine Color Urine Appearance Urine pH (5.0-8.0) Ur Specific [place] (1.005-1.025) Urine Protein (NEG-TRACE) MG/DL Urine Glucose (UA) (NEG) MG/DL Urine Ketones (NEG) MG/DL Urine Blood (NEG) Urine Nitrite (NEG) Ur Leukocyte Esterase (NEG) Urine RBC (0) /HPF Urine WBC (0-4) /HPF Ur Squamous Epith Cells /LPF Urine Bacteria /LPF Urine Yeast /HPF COVID-19 (JENNA) Negative (Negative) COVID-19 Clin Com See Note 04/02/20 04/02/20 Range/Units 15:12 17:35 WBC (4.8-10.8) X10*3/uL RBC (4.60-5.80) X10*6/uL Hgb (14.0-18.0) g/dl Hct (42-52) % MCV (80-98) fL MCH (27.0-33.0) pg MCHC (31.0-36.0) g/dl RDW (11.0-16.0) % Plt Count (160-400) X10*3/uL MPV (9.4-12.4) fL Immature Gran % (Auto) (0.0-0.4) % Neut % (Auto) (45-73) % Lymph % (Auto) (20-40) % [place] % (Auto) (2-11) % Eos % (Auto) (0-4) % Baso % (Auto) (0-2) % Lymph # (Auto) (1.2-4.9) X10*3/uL [place] # (Auto) (0.1-1.2) X10*3/uL Eos # (Auto) (0.0-0.4) X10*3/uL Baso # (Auto) (0.0-0.2) X10*3/uL Abs Immat Gran (auto) (0.00-0.03) X10*3/uL Absolute Neuts (auto) (2.0-8.3) X10*3/uL Absolute Nucleated RBC (0.0-0.012) X10*3/uL Nucleated RBC % (auto) (0.0-0.2) /100WBC PT 14.3 H (10.8-13.0) SEC INR 1.2 H (0.9-1.1) Sodium (135-145) mmol/L Potassium (3.3-5.1) mmol/L Chloride (96-108) mmol/L Carbon Dioxide (22-29) mmol/L Anion Gap (12-20) BUN (9-16) mg/dL Creatinine (0.5-1.4) mg/dL Estim Creat Clear Calc Estimated GFR Random Glucose (60-115) mg/dL Lactic Acid (0.5-2.0) mmol/L Calcium (8.4-10.2) mg/dL Magnesium (1.6-2.6) mg/dL Total Bilirubin (0.0-1.0) mg/dL Direct Bilirubin (0.0-0.5) mg/dL AST (5-37) U/L ALT (0-40) U/L Alkaline Phosphatase (39-117) U/L Total Creatine Kinase (38-174) U/L Troponin I High Sens (<3.5-35.0) ng/L B-Natriuretic Peptide (<100) pg/mL Total Protein (6.5-8.0) g/dL Albumin (3.5-5.0) g/dL Urine Color YELLOW Urine Appearance CLOUDY Urine pH 6.0 (5.0-8.0) Ur Specific [place] 1.025 (1.005-1.025) Urine Protein 1+ H (NEG-TRACE) MG/DL Urine Glucose (UA) NEG (NEG) MG/DL Urine Ketones NEG (NEG) MG/DL Urine Blood 3+ H (NEG) Urine Nitrite NEG (NEG) Ur Leukocyte Esterase 2+ H (NEG) Urine RBC TNTC H (0) /HPF Urine WBC 50-75 H (0-4) /HPF Ur Squamous Epith Cells 2+ /LPF Urine Bacteria NONE /LPF Urine Yeast 2+ /HPF COVID-19 ([facility]) (Negative) COVID-19 Clin Com <Jovita Toney, DO - Last Filed: 04/03/20 07:06> Lab Results 04/02/20 04/02/20 04/02/20 Range/Units 13:51 13:51 13:51 WBC 9.4 (4.8-10.8) X10*3/uL RBC 5.27 (4.60-5.80) X10*6/uL Hgb 16.5 (14.0-18.0) g/dl Hct 49.4 (42-52) % MCV 93.7 (80-98) fL MCH 31.3 (27.0-33.0) pg MCHC 33.4 (31.0-36.0) g/dl RDW 13.3 (11.0-16.0) % Plt Count 206 (160-400) X10*3/uL MPV 11.0 (9.4-12.4) fL Immature Gran % (Auto) 0.3 (0.0-0.4) % Neut % (Auto) 68.4 (45-73) % Lymph % (Auto) 21.5 (20-40) % [place] % (Auto) 7.1 (2-11) % Eos % (Auto) 2.3 (0-4) % Baso % (Auto) 0.4 (0-2) % Lymph # (Auto) 2.0 (1.2-4.9) X10*3/uL [place] # (Auto) 0.7 (0.1-1.2) X10*3/uL Eos # (Auto) 0.2 (0.0-0.4) X10*3/uL Baso # (Auto) 0.0 (0.0-0.2) X10*3/uL Abs Immat Gran (auto) 0.03 (0.00-0.03) X10*3/uL Absolute Neuts (auto) 6.4 (2.0-8.3) X10*3/uL Absolute Nucleated RBC 0.000 (0.0-0.012) X10*3/uL Nucleated RBC % (auto) 0.0 (0.0-0.2) /100WBC PT (10.8-13.0) SEC INR (0.9-1.1) Sodium 143 (135-145) mmol/L Potassium 4.6 (3.3-5.1) mmol/L Chloride 105 (96-108) mmol/L Carbon Dioxide 29 (22-29) mmol/L Anion Gap 14 (12-20) BUN 19 H (9-16) mg/dL Creatinine 1.00 (0.5-1.4) mg/dL Estim Creat Clear Calc 94.6 Estimated GFR > 60 Random Glucose 170 H (60-115) mg/dL Lactic Acid 1.7 (0.5-2.0) mmol/L Calcium 9.2 (8.4-10.2) mg/dL Magnesium 2.1 (1.6-2.6) mg/dL Total Bilirubin 1.2 H (0.0-1.0) mg/dL Direct Bilirubin 0.3 (0.0-0.5) mg/dL AST 22 (5-37) U/L ALT 17 (0-40) U/L Alkaline Phosphatase 142 H (39-117) U/L Total Creatine Kinase (38-174) U/L Troponin I High Sens (<3.5-35.0) ng/L B-Natriuretic Peptide (<100) pg/mL Total Protein 6.8 (6.5-8.0) g/dL Albumin 3.9 (3.5-5.0) g/dL Urine Color Urine Appearance Urine pH (5.0-8.0) Ur Specific [place] (1.005-1.025) Urine Protein (NEG-TRACE) MG/DL Urine Glucose (UA) (NEG) MG/DL Urine Ketones (NEG) MG/DL Urine Blood (NEG) Urine Nitrite (NEG) Ur Leukocyte Esterase (NEG) Urine RBC (0) /HPF Urine WBC (0-4) /HPF Ur Squamous Epith Cells /LPF Urine Bacteria /LPF Urine Yeast /HPF COVID-19 ([facility]NA) (Negative) COVID-19 Clin Com 04/02/20 04/02/20 04/02/20 Range/Units 13:51 13:51 13:51 WBC (4.8-10.8) X10*3/uL RBC (4.60-5.80) X10*6/uL Hgb (14.0-18.0) g/dl Hct (42-52) % MCV (80-98) fL MCH (27.0-33.0) pg MCHC (31.0-36.0) g/dl RDW (11.0-16.0) % Plt Count (160-400) X10*3/uL MPV (9.4-12.4) fL Immature Gran % (Auto) (0.0-0.4) % Neut % (Auto) (45-73) % Lymph % (Auto) (20-40) % [place] % (Auto) (2-11) % Eos % (Auto) (0-4) % Baso % (Auto) (0-2) % Lymph # (Auto) (1.2-4.9) X10*3/uL [place] # (Auto) (0.1-1.2) X10*3/uL Eos # (Auto) (0.0-0.4) X10*3/uL Baso # (Auto) (0.0-0.2) X10*3/uL Abs Immat Gran (auto) (0.00-0.03) X10*3/uL Absolute Neuts (auto) (2.0-8.3) X10*3/uL Absolute Nucleated RBC (0.0-0.012) X10*3/uL Nucleated RBC % (auto) (0.0-0.2) /100WBC PT (10.8-13.0) SEC INR (0.9-1.1) Sodium (135-145) mmol/L Potassium (3.3-5.1) mmol/L Chloride (96-108) mmol/L Carbon Dioxide (22-29) mmol/L Anion Gap (12-20) BUN (9-16) mg/dL Creatinine (0.5-1.4) mg/dL Estim Creat Clear Calc Estimated GFR Random Glucose (60-115) mg/dL Lactic Acid (0.5-2.0) mmol/L Calcium (8.4-10.2) mg/dL Magnesium (1.6-2.6) mg/dL Total Bilirubin (0.0-1.0) mg/dL Direct Bilirubin (0.0-0.5) mg/dL AST (5-37) U/L ALT (0-40) U/L Alkaline Phosphatase (39-117) U/L Total Creatine Kinase 35 L (38-174) U/L Troponin I High Sens 10.4 (<3.5-35.0) ng/L B-Natriuretic Peptide 80 (<100) pg/mL Total Protein (6.5-8.0) g/dL Albumin (3.5-5.0) g/dL Urine Color Urine Appearance Urine pH (5.0-8.0) Ur Specific [place] (1.005-1.025) Urine Protein (NEG-TRACE) MG/DL Urine Glucose (UA) (NEG) MG/DL Urine Ketones (NEG) MG/DL Urine Blood (NEG) Urine Nitrite (NEG) Ur Leukocyte Esterase (NEG) Urine RBC (0) /HPF Urine WBC (0-4) /HPF Ur Squamous Epith Cells /LPF Urine Bacteria /LPF Urine Yeast /HPF COVID-19 ([facility]NA) Negative (Negative) COVID-19 Clin Com See Note 04/02/20 04/02/20 Range/Units 15:12 17:35 WBC (4.8-10.8) X10*3/uL RBC (4.60-5.80) X10*6/uL Hgb (14.0-18.0) g/dl Hct (42-52) % MCV (80-98) fL MCH (27.0-33.0) pg MCHC (31.0-36.0) g/dl RDW (11.0-16.0) % Plt Count (160-400) X10*3/uL MPV (9.4-12.4) fL Immature Gran % (Auto) (0.0-0.4) % Neut % (Auto) (45-73) % Lymph % (Auto) (20-40) % [place] % (Auto) (2-11) % Eos % (Auto) (0-4) % Baso % (Auto) (0-2) % Lymph # (Auto) (1.2-4.9) X10*3/uL [place] # (Auto) (0.1-1.2) X10*3/uL Eos # (Auto) (0.0-0.4) X10*3/uL Baso # (Auto) (0.0-0.2) X10*3/uL Abs Immat Gran (auto) (0.00-0.03) X10*3/uL Absolute Neuts (auto) (2.0-8.3) X10*3/uL Absolute Nucleated RBC (0.0-0.012) X10*3/uL Nucleated RBC % (auto) (0.0-0.2) /100WBC PT 14.3 H (10.8-13.0) SEC INR 1.2 H (0.9-1.1) Sodium (135-145) mmol/L Potassium (3.3-5.1) mmol/L Chloride (96-108) mmol/L Carbon Dioxide (22-29) mmol/L Anion Gap (12-20) BUN (9-16) mg/dL Creatinine (0.5-1.4) mg/dL Estim Creat Clear Calc Estimated GFR Random Glucose (60-115) mg/dL Lactic Acid (0.5-2.0) mmol/L Calcium (8.4-10.2) mg/dL Magnesium (1.6-2.6) mg/dL Total Bilirubin (0.0-1.0) mg/dL Direct Bilirubin (0.0-0.5) mg/dL AST (5-37) U/L ALT (0-40) U/L Alkaline Phosphatase (39-117) U/L Total Creatine Kinase (38-174) U/L Troponin I High Sens (<3.5-35.0) ng/L B-Natriuretic Peptide (<100) pg/mL Total Protein (6.5-8.0) g/dL Albumin (3.5-5.0) g/dL Urine Color YELLOW Urine Appearance CLOUDY Urine pH 6.0 (5.0-8.0) Ur Specific [place] 1.025 (1.005-1.025) Urine Protein 1+ H (NEG-TRACE) MG/DL Urine Glucose (UA) NEG (NEG) MG/DL Urine Ketones NEG (NEG) MG/DL Urine Blood 3+ H (NEG) Urine Nitrite NEG (NEG) Ur Leukocyte Esterase 2+ H (NEG) Urine RBC TNTC H (0) /HPF Urine WBC 50-75 H (0-4) /HPF Ur Squamous Epith Cells 2+ /LPF Urine Bacteria NONE /LPF Urine Yeast 2+ /HPF COVID-19 ([facility]) (Negative) COVID-19 Clin Com <Gladys Graves NP - Last Filed: 04/04/20 01:42> Lab Results 04/02/20 04/02/20 04/02/20 Range/Units 13:51 13:51 13:51 WBC 9.4 (4.8-10.8) X10*3/uL RBC 5.27 (4.60-5.80) X10*6/uL Hgb 16.5 (14.0-18.0) g/dl Hct 49.4 (42-52) % MCV 93.7 (80-98) fL MCH 31.3 (27.0-33.0) pg MCHC 33.4 (31.0-36.0) g/dl RDW 13.3 (11.0-16.0) % Plt Count 206 (160-400) X10*3/uL MPV 11.0 (9.4-12.4) fL Immature Gran % (Auto) 0.3 (0.0-0.4) % Neut % (Auto) 68.4 (45-73) % Lymph % (Auto) 21.5 (20-40) % [place] % (Auto) 7.1 (2-11) % Eos % (Auto) 2.3 (0-4) % Baso % (Auto) 0.4 (0-2) % Lymph # (Auto) 2.0 (1.2-4.9) X10*3/uL [place] # (Auto) 0.7 (0.1-1.2) X10*3/uL Eos # (Auto) 0.2 (0.0-0.4) X10*3/uL Baso # (Auto) 0.0 (0.0-0.2) X10*3/uL Abs Immat Gran (auto) 0.03 (0.00-0.03) X10*3/uL Absolute Neuts (auto) 6.4 (2.0-8.3) X10*3/uL Absolute Nucleated RBC 0.000 (0.0-0.012) X10*3/uL Nucleated RBC % (auto) 0.0 (0.0-0.2) /100WBC PT (10.8-13.0) SEC INR (0.9-1.1) Sodium 143 (135-145) mmol/L Potassium 4.6 (3.3-5.1) mmol/L Chloride 105 (96-108) mmol/L Carbon Dioxide 29 (22-29) mmol/L Anion Gap 14 (12-20) BUN 19 H (9-16) mg/dL Creatinine 1.00 (0.5-1.4) mg/dL Estim Creat Clear Calc 94.6 Estimated GFR > 60 Random Glucose 170 H (60-115) mg/dL Lactic Acid 1.7 (0.5-2.0) mmol/L Calcium 9.2 (8.4-10.2) mg/dL Magnesium 2.1 (1.6-2.6) mg/dL Total Bilirubin 1.2 H (0.0-1.0) mg/dL Direct Bilirubin 0.3 (0.0-0.5) mg/dL AST 22 (5-37) U/L ALT 17 (0-40) U/L Alkaline Phosphatase 142 H (39-117) U/L Total Creatine Kinase (38-174) U/L Troponin I High Sens (<3.5-35.0) ng/L B-Natriuretic Peptide (<100) pg/mL Total Protein 6.8 (6.5-8.0) g/dL Albumin 3.9 (3.5-5.0) g/dL Urine Color Urine Appearance Urine pH (5.0-8.0) Ur Specific [place] (1.005-1.025) Urine Protein (NEG-TRACE) MG/DL Urine Glucose (UA) (NEG) MG/DL Urine Ketones (NEG) MG/DL Urine Blood (NEG) Urine Nitrite (NEG) Ur Leukocyte Esterase (NEG) Urine RBC (0) /HPF Urine WBC (0-4) /HPF Ur Squamous Epith Cells /LPF Urine Bacteria /LPF Urine Yeast /HPF COVID-19 ([facility]ENNA) (Negative) COVID-19 Clin Com 04/02/20 04/02/20 04/02/20 Range/Units 13:51 13:51 13:51 WBC (4.8-10.8) X10*3/uL RBC (4.60-5.80) X10*6/uL Hgb (14.0-18.0) g/dl Hct (42-52) % MCV (80-98) fL MCH (27.0-33.0) pg MCHC (31.0-36.0) g/dl RDW (11.0-16.0) % Plt Count (160-400) X10*3/uL MPV (9.4-12.4) fL Immature Gran % (Auto) (0.0-0.4) % Neut % (Auto) (45-73) % Lymph % (Auto) (20-40) % [place] % (Auto) (2-11) % Eos % (Auto) (0-4) % Baso % (Auto) (0-2) % Lymph # (Auto) (1.2-4.9) X10*3/uL [place] # (Auto) (0.1-1.2) X10*3/uL Eos # (Auto) (0.0-0.4) X10*3/uL Baso # (Auto) (0.0-0.2) X10*3/uL Abs Immat Gran (auto) (0.00-0.03) X10*3/uL Absolute Neuts (auto) (2.0-8.3) X10*3/uL Absolute Nucleated RBC (0.0-0.012) X10*3/uL Nucleated RBC % (auto) (0.0-0.2) /100WBC PT (10.8-13.0) SEC INR (0.9-1.1) Sodium (135-145) mmol/L Potassium (3.3-5.1) mmol/L Chloride (96-108) mmol/L Carbon Dioxide (22-29) mmol/L Anion Gap (12-20) BUN (9-16) mg/dL Creatinine (0.5-1.4) mg/dL Estim Creat Clear Calc Estimated GFR Random Glucose (60-115) mg/dL Lactic Acid (0.5-2.0) mmol/L Calcium (8.4-10.2) mg/dL Magnesium (1.6-2.6) mg/dL Total Bilirubin (0.0-1.0) mg/dL Direct Bilirubin (0.0-0.5) mg/dL AST (5-37) U/L ALT (0-40) U/L Alkaline Phosphatase (39-117) U/L Total Creatine Kinase 35 L (38-174) U/L Troponin I High Sens 10.4 (<3.5-35.0) ng/L B-Natriuretic Peptide 80 (<100) pg/mL Total Protein (6.5-8.0) g/dL Albumin (3.5-5.0) g/dL Urine Color Urine Appearance Urine pH (5.0-8.0) Ur Specific [place] (1.005-1.025) Urine Protein (NEG-TRACE) MG/DL Urine Glucose (UA) (NEG) MG/DL Urine Ketones (NEG) MG/DL Urine Blood (NEG) Urine Nitrite (NEG) Ur Leukocyte Esterase (NEG) Urine RBC (0) /HPF Urine WBC (0-4) /HPF Ur Squamous Epith Cells /LPF Urine Bacteria /LPF Urine Yeast /HPF COVID-19 ([facility]NA) Negative (Negative) COVID-19 Clin Com See Note 04/02/20 04/02/20 Range/Units 15:12 17:35 WBC (4.8-10.8) X10*3/uL RBC (4.60-5.80) X10*6/uL Hgb (14.0-18.0) g/dl Hct (42-52) % MCV (80-98) fL MCH (27.0-33.0) pg MCHC (31.0-36.0) g/dl RDW (11.0-16.0) % Plt Count (160-400) X10*3/uL MPV (9.4-12.4) fL Immature Gran % (Auto) (0.0-0.4) % Neut % (Auto) (45-73) % Lymph % (Auto) (20-40) % [place] % (Auto) (2-11) % Eos % (Auto) (0-4) % Baso % (Auto) (0-2) % Lymph # (Auto) (1.2-4.9) X10*3/uL [place] # (Auto) (0.1-1.2) X10*3/uL Eos # (Auto) (0.0-0.4) X10*3/uL Baso # (Auto) (0.0-0.2) X10*3/uL Abs Immat Gran (auto) (0.00-0.03) X10*3/uL Absolute Neuts (auto) (2.0-8.3) X10*3/uL Absolute Nucleated RBC (0.0-0.012) X10*3/uL Nucleated RBC % (auto) (0.0-0.2) /100WBC PT 14.3 H (10.8-13.0) SEC INR 1.2 H (0.9-1.1) Sodium (135-145) mmol/L Potassium (3.3-5.1) mmol/L Chloride (96-108) mmol/L Carbon Dioxide (22-29) mmol/L Anion Gap (12-20) BUN (9-16) mg/dL Creatinine (0.5-1.4) mg/dL Estim Creat Clear Calc Estimated GFR Random Glucose (60-115) mg/dL Lactic Acid (0.5-2.0) mmol/L Calcium (8.4-10.2) mg/dL Magnesium (1.6-2.6) mg/dL Total Bilirubin (0.0-1.0) mg/dL Direct Bilirubin (0.0-0.5) mg/dL AST (5-37) U/L ALT (0-40) U/L Alkaline Phosphatase (39-117) U/L Total Creatine Kinase (38-174) U/L Troponin I High Sens (<3.5-35.0) ng/L B-Natriuretic Peptide (<100) pg/mL Total Protein (6.5-8.0) g/dL Albumin (3.5-5.0) g/dL Urine Color YELLOW Urine Appearance CLOUDY Urine pH 6.0 (5.0-8.0) Ur Specific [place] 1.025 (1.005-1.025) Urine Protein 1+ H (NEG-TRACE) MG/DL Urine Glucose (UA) NEG (NEG) MG/DL Urine Ketones NEG (NEG) MG/DL Urine Blood 3+ H (NEG) Urine Nitrite NEG (NEG) Ur Leukocyte Esterase 2+ H (NEG) Urine RBC TNTC H (0) /HPF Urine WBC 50-75 H (0-4) /HPF Ur Squamous Epith Cells 2+ /LPF Urine Bacteria NONE /LPF Urine Yeast 2+ /HPF COVID-19 ([facility]) (Negative) COVID-19 Clin Com <Arsh Zamudio MD - Last Filed: 04/10/20 07:53> Lab Results 04/02/20 04/02/20 04/02/20 Range/Units 13:51 13:51 13:51 WBC 9.4 (4.8-10.8) X10*3/uL RBC 5.27 (4.60-5.80) X10*6/uL Hgb 16.5 (14.0-18.0) g/dl Hct 49.4 (42-52) % MCV 93.7 (80-98) fL MCH 31.3 (27.0-33.0) pg MCHC 33.4 (31.0-36.0) g/dl RDW 13.3 (11.0-16.0) % Plt Count 206 (160-400) X10*3/uL MPV 11.0 (9.4-12.4) fL Immature Gran % (Auto) 0.3 (0.0-0.4) % Neut % (Auto) 68.4 (45-73) % Lymph % (Auto) 21.5 (20-40) % [place] % (Auto) 7.1 (2-11) % Eos % (Auto) 2.3 (0-4) % Baso % (Auto) 0.4 (0-2) % Lymph # (Auto) 2.0 (1.2-4.9) X10*3/uL [place] # (Auto) 0.7 (0.1-1.2) X10*3/uL Eos # (Auto) 0.2 (0.0-0.4) X10*3/uL Baso # (Auto) 0.0 (0.0-0.2) X10*3/uL Abs Immat Gran (auto) 0.03 (0.00-0.03) X10*3/uL Absolute Neuts (auto) 6.4 (2.0-8.3) X10*3/uL Absolute Nucleated RBC 0.000 (0.0-0.012) X10*3/uL Nucleated RBC % (auto) 0.0 (0.0-0.2) /100WBC PT (10.8-13.0) SEC INR (0.9-1.1) Sodium 143 (135-145) mmol/L Potassium 4.6 (3.3-5.1) mmol/L Chloride 105 (96-108) mmol/L Carbon Dioxide 29 (22-29) mmol/L Anion Gap 14 (12-20) BUN 19 H (9-16) mg/dL Creatinine 1.00 (0.5-1.4) mg/dL Estim Creat Clear Calc 94.6 Estimated GFR > 60 Random Glucose 170 H (60-115) mg/dL Lactic Acid 1.7 (0.5-2.0) mmol/L Calcium 9.2 (8.4-10.2) mg/dL Magnesium 2.1 (1.6-2.6) mg/dL Total Bilirubin 1.2 H (0.0-1.0) mg/dL Direct Bilirubin 0.3 (0.0-0.5) mg/dL AST 22 (5-37) U/L ALT 17 (0-40) U/L Alkaline Phosphatase 142 H (39-117) U/L Total Creatine Kinase (38-174) U/L Troponin I High Sens (<3.5-35.0) ng/L B-Natriuretic Peptide (<100) pg/mL Total Protein 6.8 (6.5-8.0) g/dL Albumin 3.9 (3.5-5.0) g/dL Urine Color Urine Appearance Urine pH (5.0-8.0) Ur Specific [place] (1.005-1.025) Urine Protein (NEG-TRACE) MG/DL Urine Glucose (UA) (NEG) MG/DL Urine Ketones (NEG) MG/DL Urine Blood (NEG) Urine Nitrite (NEG) Ur Leukocyte Esterase (NEG) Urine RBC (0) /HPF Urine WBC (0-4) /HPF Ur Squamous Epith Cells /LPF Urine Bacteria /LPF Urine Yeast /HPF COVID-19 (JENNA) (Negative) COVID-19 Clin Com 04/02/20 04/02/20 04/02/20 Range/Units 13:51 13:51 13:51 WBC (4.8-10.8) X10*3/uL RBC (4.60-5.80) X10*6/uL Hgb (14.0-18.0) g/dl Hct (42-52) % MCV (80-98) fL MCH (27.0-33.0) pg MCHC (31.0-36.0) g/dl RDW (11.0-16.0) % Plt Count (160-400) X10*3/uL MPV (9.4-12.4) fL Immature Gran % (Auto) (0.0-0.4) % Neut % (Auto) (45-73) % Lymph % (Auto) (20-40) % [place] % (Auto) (2-11) % Eos % (Auto) (0-4) % Baso % (Auto) (0-2) % Lymph # (Auto) (1.2-4.9) X10*3/uL [place] # (Auto) (0.1-1.2) X10*3/uL Eos # (Auto) (0.0-0.4) X10*3/uL Baso # (Auto) (0.0-0.2) X10*3/uL Abs Immat Gran (auto) (0.00-0.03) X10*3/uL Absolute Neuts (auto) (2.0-8.3) X10*3/uL Absolute Nucleated RBC (0.0-0.012) X10*3/uL Nucleated RBC % (auto) (0.0-0.2) /100WBC PT (10.8-13.0) SEC INR (0.9-1.1) Sodium (135-145) mmol/L Potassium (3.3-5.1) mmol/L Chloride (96-108) mmol/L Carbon Dioxide (22-29) mmol/L Anion Gap (12-20) BUN (9-16) mg/dL Creatinine (0.5-1.4) mg/dL Estim Creat Clear Calc Estimated GFR Random Glucose (60-115) mg/dL Lactic Acid (0.5-2.0) mmol/L Calcium (8.4-10.2) mg/dL Magnesium (1.6-2.6) mg/dL Total Bilirubin (0.0-1.0) mg/dL Direct Bilirubin (0.0-0.5) mg/dL AST (5-37) U/L ALT (0-40) U/L Alkaline Phosphatase (39-117) U/L Total Creatine Kinase 35 L (38-174) U/L Troponin I High Sens 10.4 (<3.5-35.0) ng/L B-Natriuretic Peptide 80 (<100) pg/mL Total Protein (6.5-8.0) g/dL Albumin (3.5-5.0) g/dL Urine Color Urine Appearance Urine pH (5.0-8.0) Ur Specific [place] (1.005-1.025) Urine Protein (NEG-TRACE) MG/DL Urine Glucose (UA) (NEG) MG/DL Urine Ketones (NEG) MG/DL Urine Blood (NEG) Urine Nitrite (NEG) Ur Leukocyte Esterase (NEG) Urine RBC (0) /HPF Urine WBC (0-4) /HPF Ur Squamous Epith Cells /LPF Urine Bacteria /LPF Urine Yeast /HPF COVID-19 (JENNA) Negative (Negative) COVID-19 Clin Com See Note 04/02/20 04/02/20 Range/Units 15:12 17:35 WBC (4.8-10.8) X10*3/uL RBC (4.60-5.80) X10*6/uL Hgb (14.0-18.0) g/dl Hct (42-52) % MCV (80-98) fL MCH (27.0-33.0) pg MCHC (31.0-36.0) g/dl RDW (11.0-16.0) % Plt Count (160-400) X10*3/uL MPV (9.4-12.4) fL Immature Gran % (Auto) (0.0-0.4) % Neut % (Auto) (45-73) % Lymph % (Auto) (20-40) % [place] % (Auto) (2-11) % Eos % (Auto) (0-4) % Baso % (Auto) (0-2) % Lymph # (Auto) (1.2-4.9) X10*3/uL [place] # (Auto) (0.1-1.2) X10*3/uL Eos # (Auto) (0.0-0.4) X10*3/uL Baso # (Auto) (0.0-0.2) X10*3/uL Abs Immat Gran (auto) (0.00-0.03) X10*3/uL Absolute Neuts (auto) (2.0-8.3) X10*3/uL Absolute Nucleated RBC (0.0-0.012) X10*3/uL Nucleated RBC % (auto) (0.0-0.2) /100WBC PT 14.3 H (10.8-13.0) SEC INR 1.2 H (0.9-1.1) Sodium (135-145) mmol/L Potassium (3.3-5.1) mmol/L Chloride (96-108) mmol/L Carbon Dioxide (22-29) mmol/L Anion Gap (12-20) BUN (9-16) mg/dL Creatinine (0.5-1.4) mg/dL Estim Creat Clear Calc Estimated GFR Random Glucose (60-115) mg/dL Lactic Acid (0.5-2.0) mmol/L Calcium (8.4-10.2) mg/dL Magnesium (1.6-2.6) mg/dL Total Bilirubin (0.0-1.0) mg/dL Direct Bilirubin (0.0-0.5) mg/dL AST (5-37) U/L ALT (0-40) U/L Alkaline Phosphatase (39-117) U/L Total Creatine Kinase (38-174) U/L Troponin I High Sens (<3.5-35.0) ng/L B-Natriuretic Peptide (<100) pg/mL Total Protein (6.5-8.0) g/dL Albumin (3.5-5.0) g/dL Urine Color YELLOW Urine Appearance CLOUDY Urine pH 6.0 (5.0-8.0) Ur Specific [place] 1.025 (1.005-1.025) Urine Protein 1+ H (NEG-TRACE) MG/DL Urine Glucose (UA) NEG (NEG) MG/DL Urine Ketones NEG (NEG) MG/DL Urine Blood 3+ H (NEG) Urine Nitrite NEG (NEG) Ur Leukocyte Esterase 2+ H (NEG) Urine RBC TNTC H (0) /HPF Urine WBC 50-75 H (0-4) /HPF Ur Squamous Epith Cells 2+ /LPF Urine Bacteria NONE /LPF Urine Yeast 2+ /HPF COVID-19 ([facility]) (Negative) COVID-19 Clin Com <Rehan Merchant NP - Last Filed: 04/05/20 10:21> Imaging Data Chest x-ray: Attestation: I personally reviewed and interpreted this imaging study as follows: <Lainey Wright NP - Last Filed: 04/02/20 19:42> Radiologist's impression: AP and lateral views of the chest demonstrate chronic left base pleural-parenchymal scarring. No acute parenchymal disease, pneumothorax, or pleural effusion. Cardiopericardial silhouette is mildly enlarged. No evidence of pulmonary edema. <Lainey Wright NP - Last Filed: 04/02/20 19:42> lumbar spine: Attestation: I personally reviewed and interpreted this imaging study as follows: <Lainey Wright NP - Last Filed: 04/02/20 19:42> Radiologist's impression: 3 views of the lumbar spine demonstrate 5 nonrib-bearing lumbar vertebra. No acute fracture, spondylolisthesis, spondylolysis is appreciated. There is significant narrowing of the L4-L5 and L5-S1 disc spaces with bilateral facet arthropathy L4-S1. There is partial lumbarization of S1. Degenerative marginal spurring is seen at multiple levels. No destructive bony lesions appreciated. <Lainey Wright NP - Last Filed: 04/02/20 19:42> hip xray: Attestation: I personally reviewed and interpreted this imaging study as follows: <REBEKA Kelley Last Filed: 04/02/20 19:42> Radiologist's impression: There is no evidence of acute fracture or diastases of the pelvis. No definite fusion or widening of the sacroiliac joints. Changes of enthesopathy seen about the pelvis. No destructive bony lesions are identified. Hip joint spaces appear maintained with some mild collar spurring. 2 views of the left hip demonstrate a sclerotic lesion within the femoral head most likely representing a bone island and not typical appearance of avascular ischemic necrosis. No femoral head flattening is seen and no lucency is appreciated. Hip joint space maintained. No acute fracture or dislocation. <Lainey Wright NP - Last Filed: 04/02/20 19:42> hip ct: Attestation: I personally reviewed and interpreted this imaging study as follows: <REBEKA Kelley Last Filed: 04/02/20 19:42> Radiologist's impression: IMPRESSION should read: No acute fracture or dislocation. Moderate left hip osteoarthritis. 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 Prominent stool within the rectum. <REBEKA Kelley Last Filed: 04/02/20 19:42> ECG Data Attestation: I personally reviewed and interpreted this ECG as follows: <Lainey Wright NP - Last Filed: 04/02/20 19:42> Interpretation: Sinus rhythm with PVCs with a rate of 60, normal LA, normal QTC, <Lainey Wright NP - Last Filed: 04/02/20 19:42> Discharge Plan Discharge Clinical Impression: Arthritis, Weakness, UTI (urinary tract infection) <Lainey Wright NP - Last Filed: 04/02/20 19:42> Patient Disposition: er [facility] <Lainey Wright NP - Last Filed: 04/02/20 19:42> Transfer Details: [facility] <Lainey Wright NP - Last Filed: 04/02/20 19:42> [facility] <Jovita Toney DO - Last Filed: 04/03/20 07:06> [facility] <Gladys Graves NP - Last Filed: 04/04/20 01:42> [facility] <Arsh Zamudio MD - Last Filed: 04/10/20 07:53> [facility] <Rehan Merchant NP - Last Filed: 04/05/20 10:21> Prescriptions: New alprazolam [Xanax] 0.25 mg tablet 0.125 mg PO TID Qty: 10 RF: 0 cephalexin 500 mg capsule 500 mg PO BID Qty: 14 RF: 0 naproxen 500 mg tablet 500 mg PO BID Qty: 10 RF: 0 lidocaine [Lidoderm] 5 % adhesive patch,medicated 1 patch topical DAILY Qty: 15 RF: 0 No Action gabapentin 300 MG tablet 300 mg PO BID RF: 0 propranolol 80 MG tablet 80 mg PO BID RF: 0 Wellbutrin 150 MG tablet 150 mg PO BID RF: 0 Xanax 0.25 MG tablet 0.25 mg PO TID PRN (Reason: Anxiety) RF: 0 amlodipine 5 MG tablet 5 mg PO DAILY RF: 0 citalopram 20 MG tablet 20 mg PO DAILY RF: 0 clonidine 0.2 MG patch 0.2 mg transdermal QWEEK RF: 0 losartan 100 MG tablet 100 mg PO BEDTIME RF: 0 olanzapine 2.5 MG tablet 2.5 mg PO BEDTIME RF: 0 oxybutynin chloride 10 mg Tablet Extended Release 24hr 10 mg PO DAILY RF: 0 <Lainey Wright NP - Last Filed: 04/02/20 19:42> Referrals: [facility] [Outside] - 2 days <Lainey Wright NP - Last Filed: 04/02/20 19:42> Interventions: ED Discharge Assessment Last Done: 04/04/20 12:46 <Lainey Wright NP - Last Filed: 04/02/20 19:42> Discharge Date/Time: 04/04/20 12:49 <Lainey Wright NP - Last Filed: 04/02/20 19:42>
[2020-04-02 14:01] LABS: MANUAL DIFF FLAG NO
[2020-04-02] MEDS: Lidocaine 4 % Patch ADH..PATCH 1 PATCH TRANSDERMA (14:03)
[2020-04-02] MEDS: NaPROXEN 500 MG TABLET PO (14:03)
[2020-04-02] MEDS: Cyclobenzaprine HCl 10 MG TABLET PO (14:04)
[2020-04-02 14:08] LABS: Basophils Percent Auto 0.4 % (0-2); Eosinophils Absolute Auto 0.2 X10*3/uL (0.0-0.4); Eosinophils Percent Auto 2.3 % (0-4); Hematocrit 49.4 % (42-52); Hemoglobin 16.5 g/dl (14.0-18.0); Imm Gran Abs Auto 0.03 X10*3/uL (0.00-0.03); Imm Gran Pct Auto 0.3 % (0.0-0.4); Lymphocytes Percent Auto 21.5 % (20-40); Mean Corpuscular HGB Conc 33.4 g/dl (31.0-36.0); Mean Corpuscular Hemoglobin 31.3 pg (27.0-33.0); Mean Corpuscular Volume 93.7 fL (80-98); Monocytes Absolute Auto 0.7 X10*3/uL (0.1-1.2); Monocytes Percent Auto 7.1 % (2-11); Neutrophils Absolute Auto 6.4 X10*3/uL (2.0-8.3); Neutrophils Percent Auto 68.4 % (45-73); Platelet Count 206 X10*3/uL (160-400); Red Blood Count 5.27 X10*6/uL (4.60-5.80); Red Cell Distribution Width 13.3 % (11.0-16.0); White Blood Count 9.4 X10*3/uL (4.8-10.8)
--- NOTE | 2020-04-02 14:10 | PC.NURSE ---
VS stable. Pt is alert and oriented x3. He was meicated for his left hip pain, cleaned, and changed of his soiled clothing.
--- NOTE | 2020-04-02 14:14 | PC.NURSE ---
Addendum entered by Diandra Garner RN 04/02/20 14:17: Photo was placed in the chart. Original Note: Pt has an area of open skin and maceration to his right buttock. It appears as a combination of pressure and moisture. The patient was wearing a very soiled and wet brief that had been on for >2 days at home.
[2020-04-02 14:18] LABS: COVID-19 Test Negative (Negative)
[2020-04-02 14:33] LABS: Alanine Aminotransferase 17 U/L (0-40); Albumin Level 3.9 g/dL (3.5-5.0); Alkaline Phosphatase 142 U/L (39-117); Anion Gap 14 (12-20); Aspartate Amino Transferase 22 U/L (5-37); Bilirubin Direct 0.3 mg/dL (0.0-0.5); Bilirubin Total 1.2 mg/dL (0.0-1.0); Blood Urea Nitrogen 19 mg/dL (9-16); Calcium 9.2 mg/dL (8.4-10.2); Carbon Dioxide 29 mmol/L (22-29); Chloride 105 mmol/L (96-108); Creatinine Clr Calc Pharmacy 94.6; Estimated Glomerular Filt Rate > 60; Glucose Random 170 mg/dL (60-115); Magnesium 2.1 mg/dL (1.6-2.6); Potassium 4.6 mmol/L (3.3-5.1); Sodium 143 mmol/L (135-145); Total Protein 6.8 g/dL (6.5-8.0)
[2020-04-02 14:35] LABS: B Type Natriuretic Peptide 80 pg/mL (<100); Troponin-I High Sensitivity 10.4 ng/L (<3.5-35.0)
[2020-04-02 14:36] LABS: Lactic Acid 1.7 mmol/L (0.5-2.0)
[2020-04-02 15:25] LABS: INTERNATIONAL NORM RATIO 1.2 (0.9-1.1); Prothrombin Time 14.3 SEC (10.8-13.0)
[2020-04-02 16:00] VITALS: BP 129/60; PULSE 51; RESP 17; TEMP 36.6; O2SAT 95
--- NOTE | 2020-04-02 16:19 | PC.NURSE ---
Pt did not have home med list on arrival to hospital. Attempt made to reah his pharmacy but they are closed today. Call out to his [facility] service. Awaiting call back.
[2020-04-02 17:43] LABS: Glucose Urine UA NEG (NEG); Leukocyte Esterase Urine 2+ (NEG); Nitrite Urine NEG (NEG); Specific Gravity - Urine 1.025 (1.005-1.025); UACC Culture Trigger YES; Urine Blood 3+ (NEG); Urine Ketones NEG (NEG); Urine Protein 1+ MG/DL (NEG-TRACE)
[2020-04-02 17:52] LABS: Appearance Urine CLOUDY; Color Urine YELLOW
[2020-04-02 17:53] LABS: RBC Urine TNTC /HPF (0); Squamous Epithelial Cell Urine 2+ /LPF; WBC Urine 50-75 /HPF (0-4)
--- NOTE | 2020-04-02 18:23 | PC.NURSE ---
Addendum entered by Diandra Garner RN 04/02/20 18:27: Pt states that as long as he dosn't't move, he dosn't have any pain. Original Note: Pt cleaned of urine. He appears to be in no distress. Talking to family on the phone.
[2020-04-03] VITALS: BP 130/68; PULSE 58; RESP 18; TEMP 36.5; O2SAT 97
[2020-04-03 08:05] VITALS: BP 162/77; PULSE 61; RESP 16
[2020-04-03] MEDS: oxyCODONE HCl Immed Release 5 MG TABLET PO ×2 (09:21→15:34)
--- NOTE | 2020-04-03 12:20 | MHC.CM.ED ---
Addendum entered by Marie Resendez 04/03/20 12:34: Also referred to Rhianna Pabon and HELENA logan. Original Note: CM met with patient at the bedside to discuss discharge plan since PT is recommending STR. 1st choice is [facility] since patient has [employer] for insurance. Referral made via allscripts. CM will continue to follow for discharge needs.
[2020-04-03 14:37] VITALS: BP 134/63; PULSE 64; RESP 18
[2020-04-03] MEDS: ALPRAZolam 0.25 MG TABLET PO (14:43)
[2020-04-03 14:44] VITALS: BP 134/63
[2020-04-03] MEDS: amLODIPine Besylate 5 MG TABLET PO (14:44)
--- NOTE | 2020-04-03 15:26 | PC.NURSE ---
called pharmacy for clinidine patch, no loaded in any pyxis.
[2020-04-03] MEDS: cloNIDine 0.2 MG PATCH.TDWK TRANSDERMA (15:33)
--- NOTE | 2020-04-03 16:13 | MHC.CM.ED ---
Patient is accepted at [facility] but they need patient's MCR number. patient nor has this information. CM will need to call the [facility] tomorrow to get MCR number. Carla and patient, nurse are all aware. CM will continue to follow for discharge needs.
[2020-04-03 19:57] VITALS: BP 149/115; PULSE 60; RESP 18; O2SAT 95
[2020-04-03] MEDS: Gabapentin 300 MG CAPSULE PO (20:35)
[2020-04-03] MEDS: OLANZapine 2.5 MG TABLET PO (20:35)
[2020-04-03 20:36] VITALS: BP 136/121; PULSE 62; PULSE 64
[2020-04-03] MEDS: Losartan Potassium 50 MG TABLET 100 MG PO (20:36)
[2020-04-03] MEDS: Propranolol HCL 40 MG TABLET 80 MG PO (20:36)
--- NOTE | 2020-04-04 00:22 | PC.NURSE ---
PT COMPLAINING OF DIFFUSE LOWER ABDOMEN PAIN. FEELS LIKE GAS ON FIRE . MLP AWARE.
[2020-04-04] MEDS: Simethicone 80 MG TAB.CHEW 160 MG PO (00:56)
[2020-04-04 00:57] VITALS: BP 112/62; PULSE 67; RESP 18
--- NOTE | 2020-04-04 01:28 | PC.NURSE ---
CONSIDERING PLACING NG TUBE PENDING RADIOLOGY READ. MONTIORING AT THIS TIME.
[2020-04-04] MEDS: bisacodyL 10 MG SUPP.RECT PR (01:47)
--- NOTE | 2020-04-04 02:14 | PC.NURSE ---
PER MLP HOLD ON NGTUBE. MONTIORING AT THIS TIME.
[2020-04-04] MEDS: ALPRAZolam 0.25 MG TABLET PO (03:58)
[2020-04-04] MEDS: Magnesium Hydrox/Alum Hydrox 30 ML ORAL.SUSP PO (07:02)
[2020-04-04 07:26] VITALS: PULSE 78; RESP 18; O2SAT 96
[2020-04-04 09:22] VITALS: PULSE 68
[2020-04-04] MEDS: Escitalopram Oxalate 10 MG TABLET PO (09:22)
[2020-04-04] MEDS: Propranolol HCL 40 MG TABLET 80 MG PO (09:22)
[2020-04-04] MEDS: buPROPion HCl XL 300 MG TAB.ER.24H PO (09:22)
[2020-04-04] MEDS: Gabapentin 300 MG CAPSULE PO (09:22)
[2020-04-04 09:23] VITALS: BP 134/75; PULSE 67
[2020-04-04 09:45] VITALS: BP 134/75; PULSE 67
[2020-04-04] MEDS: amLODIPine Besylate 5 MG TABLET PO (09:45)
--- NOTE | 2020-04-04 09:49 | PC.NURSE ---
pt medicated with am meds. resting comfortably in bed. awaiting placement.
--- NOTE | 2020-04-04 11:34 | MHC.CM.ED ---
Patient remains in ER. [facility] [address] is able to offer a bed. Patient can leave at 1230pm after eating lunch. Patient, Lainey Aguirre DISPENSING OPERATOR and [facility] peace aware. [facility] booked. [facility] with chart. Medicare ID#[id number]. Continue to monitor for d/c needs.
== END 2020-04-04 12:49 | disposition skilled nursing facility (03) ==
PROVIDERS: Nurse Practitioner Family; Emergency Provider Emergency Medicine Emergency Medical Services; PCP Family Medicine
DX: M16.12 Unilateral primary osteoarthritis, left hip (principal); N39.0 Urinary tract infection, site not specified; R53.1 Weakness; M54.5 Low back pain; F33.1 Major depressive disorder, recurrent, moderate; R10.2 Pelvic and perineal pain; I10 Essential (primary) hypertension; F41.9 Anxiety disorder, unspecified; Z20.822 Contact with and (suspected) exposure to COVID-19; Z79.899 Other long term (current) drug therapy
CPT/HCPCS: 36415; 71046; 72100; 73502; 73700; 74176; 80048; 80076; 81001; 81003; 82550; 83605; 83735; 83880; 84484; 85025; 85610; 87040; 87086; 87088; 87147; 87205; 87635; 93005; 97161; 99284; 99285

== ENCOUNTER 2020-04-25 15:57 | Emergency (ER) | payer OTHER, SELFPAY ==
--- NOTE | ~2020-04-25 | XR_ITS ---
EXAMINATION: XR CHEST CLINICAL INFORMATION: Abnormal behaviors. COMPARISON: Chest radiographs 04/02/2020, 12/01/2017; CT abdomen 04/04/2020 TECHNIQUE: Semiupright AP view of the chest is performed. FINDINGS: There are low lung volumes with inspiration to the right posterior eighth rib. The right lung is clear. The heart is within limits of normal size and the vascularity is normal. There is opacity left base with ill-defined diaphragmatic contour. Recent CT suggest elevated diaphragm with epicardial areolar tissue responsible for the finding. There are no air bronchograms. The left upper and mid lung zones appear clear. The visualized hilar and mediastinal contours and bony structures are unremarkable. XR/XR chest 1V IMPRESSION: Low lung volumes. Opacity left base likely combination of elevated diaphragm and epicardial areolar tissue as noted on recent CT. No definite airspace consolidation.
--- NOTE | ~2020-04-25 | CT_ITS ---
EXAMINATION: CT HEAD WITHOUT CONTRAST CLINICAL INFORMATION: Abnormal behavior COMPARISON: June 03, 2017 TECHNIQUE: Contiguous axial imaging was performed from the skull base to vertex without intravenous administration of contrast. This CT examination was performed using dose optimization techniques as appropriate, variously including the following: *Automated exposure control *Adjustment of mA and/or kV according to patient size (this includes techniques or standardized protocols for targeted exams where dose is matched to indication/reason for exam; i.e. extremities or head) *Use of iterative reconstruction technique DLP: 844 mGy-cm FINDINGS: There is no evidence of acute intracranial hemorrhage or territorial infarction. No abnormal mass effect or midline shift is seen. Alvarado to white matter differentiation is well preserved. No extra-axial fluid collections are identified. The ventricles are normal in size. There is again noted to be periventricular white matter low density consistent with microangiopathy. The osseous structures and soft tissues are normal. The mastoid air cells and visualized portions of the paranasal sinuses are well aerated. CT/CT head/brain wo con IMPRESSION: No acute intracranial pathology.
--- NOTE | ~2020-04-25 | CT_ITS ---
EXAMINATION: CT PELVIS WITHOUT CONTRAST CLINICAL INFORMATION: Worsening bilateral hip and pelvic pain. COMPARISON: CT abdomen and pelvis noncontrast 04/04/2020, CT left hip 04/02/2020. TECHNIQUE: Helical scanning was performed with submillimeter collimation through the pelvis. Sagittal and coronal multiplanar 2-D reconstructions were obtained. No oral or intravenous contrast. This CT examination was performed using dose optimization techniques as appropriate, variously including the following: *Automated exposure control *Adjustment of mA and/or kV according to patient size (this includes techniques or standardized protocols for targeted exams where dose is matched to indication/reason for exam; i.e. extremities or head) *Use of iterative reconstruction technique DLP: 839 mGy-cm FINDINGS: There is large amount of stool in the rectum, distended to 8.6 cm in diameter. There is no wall thickening. No proximal obstruction. No pneumatosis or free air. No ascites or fluid collection. The prostate is enlarged measuring approximately 5.3 x 7.6 x 7.7 cm. The seminal vesicles are plump, left larger. Pelvic side wall soft tissues unremarkable. There is mild uplifting bladder base. Bladder partially distended, otherwise unremarkable. There is no deep pelvic or inguinal lymphadenopathy. There is fat-containing left inguinal hernia extending to the scrotum measuring approximately 3.0 x 5.8 cm x 9 cm in length. Borderline fat-containing right inguinal hernia. No acute bony abnormality. No fracture or dislocation. There are degenerative changes lumbosacral spine. Mild bilateral hip osteoarthritis. No hip effusion. Superficial soft tissues unremarkable. CT/CT pelvis wo con IMPRESSION: 1. Large amount of stool in rectum. No proximal obstruction. 2. Prostatic enlargement. Fullness seminal vesicles, greater on left. 3. Fat-containing left inguinal hernia extending to the scrotum. 4. Degenerative changes lumbosacral spine and bilateral hips. No fracture or dislocation. No hip effusion.
[2020-04-25 16:34] VITALS: BP 138/64; BP 170/72; PULSE 59; PULSE 62; RESP 22; TEMP 36.7; O2SAT 92; O2SAT 96; BMI 39.5
--- NOTE | 2020-04-25 17:10 | ED.PSYCH ---
HPI - Psych General Chief Complaint: Psychiatric Symptoms <Eva Davis PA-C - Last Filed: 04/25/20 20:59> Stated Complaint: PSYCH EVAL <Eva Davis PA-C - Last Filed: 04/25/20 20:59> Time Seen by Provider: 04/25/20 17:07 <Eva Davis PA-C - Last Filed: 04/25/20 20:59> Source: EMS <Eva Davis PA-C - Last Filed: 04/25/20 20:59> Mode of arrival: ambulatory <Eva Davis PA-C - Last Filed: 04/25/20 20:59> Limitations: no limitations <Eva Davis PA-C - Last Filed: 04/25/20 20:59> History of Present Illness HPI Narrative: Patient is a 74-year-old male with a past medical history of hypertension, depression, anxiety, weakness, arthritis and a recent UTI for which she is taking Cipro x3 days. He was BIBA from [facility] where he has been for the past 3 weeks. The facility states he has not been participating in PT/OT and has a flat affect, they are concerned because he has been seen putting things around his neck and made a statement to speak with someone regarding his mental health. When I spoke with the patient at the bedside, he denied SI HI. He also denied he was not participating in PT or OT. He states he has all over body pain x7 years but has no other complaints at this time. He states he is taking his medications daily and does not feel he needs an adjustment to his medications. He denies any other pain, fever, nausea vomiting diarrhea. According to [facility], he has not had a bowel movement in 3 days, since he began taking the Cipro. The patient states he has never had an abdominal surgery and has been passing gas. <Eva Davis PA-C - Last Filed: 04/25/20 20:59> Related Data Home Medications: Home Medications Medication Instructions Recorded Confirmed Wellbutrin 150 mg PO BID 04/02/20 04/02/20 Xanax 0.25 mg PO TID PRN 04/02/20 04/02/20 amlodipine 5 mg PO DAILY 04/02/20 04/02/20 citalopram 20 mg PO DAILY 04/02/20 04/02/20 clonidine 0.2 mg TRANSDERMAL QWEEK 04/02/20 04/02/20 gabapentin 300 mg PO BID 04/02/20 04/02/20 losartan 100 mg PO BEDTIME 04/02/20 04/02/20 olanzapine 2.5 mg PO BEDTIME 04/02/20 04/02/20 oxybutynin chloride 10 mg PO DAILY 04/02/20 04/02/20 propranolol 80 mg PO BID 04/02/20 04/02/20 Previous Rx's Medication Instructions Recorded alprazolam [Xanax] 0.125 mg PO TID #10 tab 04/04/20 cephalexin 500 mg PO BID #14 cap 04/04/20 lidocaine [Lidoderm] 1 patch TOPICAL DAILY #15 ea 04/04/20 naproxen 500 mg PO BID #10 tab 04/04/20 <Eva Davis PA-C - Last Filed: 04/25/20 20:59> Allergies/Adverse Reactions: Allergies Allergy/AdvReac Type Severity Reaction Status Date / Time No Known Allergies Allergy Verified 04/02/20 15:54 <Eva Davis PA-C - Last Filed: 04/25/20 20:59> Review of Systems Review of Systems: Yes all other systems are reviewed and are negative <Eva Davis PA-C - Last Filed: 04/25/20 20:59> [facility] Past Medical History Medical History: Medical History Anxiety Depression HTN (hypertension) <Eva Davis PA-C - Last Filed: 04/25/20 20:59> Social History Social History: Social History Alcohol intake: never Smoking Status: Never smoker Use of substances other than those prescribed or required for medical reasons: No Advance Directives: No Advance Directives Information Provided: No <Eva Davis PA-C - Last Filed: 04/25/20 20:59> Physical Exam Vital Signs: Vital Signs: Last Vital Signs Temp 97.4 F 04/25/20 22:00 Pulse 63 04/25/20 22:00 Resp 16 04/25/20 22:00 BP 145/68 H 04/25/20 22:00 Pulse Ox 94 04/25/20 22:00 Body Mass Index 39.5 <Eva Davis PA-C - Last Filed: 04/25/20 20:59> Vital Signs: Last Vital Signs Temp 97.4 F 04/25/20 22:00 Pulse 63 04/25/20 22:00 Resp 16 04/25/20 22:00 BP 145/68 H 04/25/20 22:00 Pulse Ox 94 04/25/20 22:00 Body Mass Index 39.5 <Gladys Damon NP - Last Filed: 04/26/20 00:58> Const: General: cooperative, healthy appearing, comfortable, no acute distress and well developed <Eva Davis PA-C - Last Filed: 04/25/20 20:59> Orientation/consciousness: patient oriented x3 <Eva Davis PA-C - Last Filed: 04/25/20 20:59> Limitations: no limitations <Eva Davis PA-C - Last Filed: 04/25/20 20:59> HENMT: Head: Yes normal to inspection <Eva Davis PA-C - Last Filed: 04/25/20 20:59> Eyes: General: appearance normal, both eyes and all related structures <Eva Davis PA-C - Last Filed: 04/25/20 20:59> Neck: Neck: Yes normal visual inspection, Yes full ROM and Yes supple <Eva Davis PA-C - Last Filed: 04/25/20 20:59> Resp: Effort & Inspection: normal respiratory effort and able to speak in complete sentences <DARIA Montoya Last Filed: 04/25/20 20:59> Auscultation: clear to auscultation bilaterally, no crackles, no rales, no rhonchi and wheezes expiratory wheezes <Eva Davis PA-C - Last Filed: 04/25/20 20:59> Cardio: Rate: regular rate <DARIA Montoya Last Filed: 04/25/20 20:59> Rhythm: regular rhythm <Eva Davis PA-C - Last Filed: 04/25/20 20:59> Heart sounds: normal S1 and S2 <Eva Davis PA-C - Last Filed: 04/25/20 20:59> GI: Inspection: Yes normal to inspection <Eva Davis PA-C - Last Filed: 04/25/20 20:59> Palpation (GI): Soft to palpation and Tenderness to palpation present (GI) (Slight diffuse) <Eva Davis PA-C - Last Filed: 04/25/20 20:59> Skin: General skin exam: no rashes or lesions noted <ANASTASIIA MontoyaNbaMelvin - Last Filed: 04/25/20 20:59> Neuro: General: patient oriented x3 <Eva Davis PA-C - Last Filed: 04/25/20 20:59> Extrem: General: Yes normal to inspection <Eva Davis PA-C - Last Filed: 04/25/20 20:59> Psych: Affect: Blunted affect present <Eva Davis PA-C Last Filed: 04/25/20 20:59> Attitude: cooperative <ANASTASIIA MontoyaCollette - Last Filed: 04/25/20 20:59> Thought process: Normal thought process present <Eva Davis PA-C Nba Last Filed: 04/25/20 20:59> Thought content: suicidality, no homicidality, no delusions and no hallucinations <Eva Davis PA-C Nba Last Filed: 04/25/20 20:59> Insight: Fair insight present (Psych) <Eva Davis PA-C Nba Last Filed: 04/25/20 20:59> Judgement: Fair judgement present (Psych) <Eva Davis PA-C Last Filed: 04/25/20 20:59> Course Course Course Narrative: Patient is a 74-year-old male past medical history of hypertension, depression, arthritis and weakness as well as a recently diagnosed UTI for which he has been taking Cipro x3 days, patient has not had a bowel movement in 3 days. Physical exam was unremarkable sans a slightly tender abdomen. Will give patient a laxative and put in a consult for the care team. 04/25/2020 9pm Sign-out to Gladys Damon NP <Eva Davis PA-C - Last Filed: 04/25/20 20:59> 1129, case management assessment complete. Patient from [facility], was found trying to hang himself with his call the cord. He has been being treated for UTI for the past days his states that he has been on oxycodone q.3 hours for back pain and family feels that the combination of UTI on oxycodone could be contributing to abnormal behavior. Unfortunately, there is no medication administration record that was sent over from the facility with this patient. Case Management will call clinical nursing director in the morning to verify medications. Plan of care is for physical therapy consult. <Gladys Damon NP - Last Filed: 04/26/20 00:58> Discharge Plan Discharge Prescriptions: No [facility] gabapentin 300 MG tablet 300 mg PO BID RF: 0 propranolol 80 MG tablet 80 mg PO BID RF: 0 Wellbutrin 150 MG tablet 150 mg PO BID RF: 0 Xanax 0.25 MG tablet 0.25 mg PO TID PRN (Reason: Anxiety) RF: 0 amlodipine 5 MG tablet 5 mg PO DAILY RF: 0 citalopram 20 MG tablet 20 mg PO DAILY RF: 0 clonidine 0.2 MG patch 0.2 mg transdermal QWEEK RF: 0 losartan 100 MG tablet 100 mg PO BEDTIME RF: 0 olanzapine 2.5 MG tablet 2.5 mg PO BEDTIME RF: 0 oxybutynin chloride 10 mg Tablet Extended Release 24hr 10 mg PO DAILY RF: 0 alprazolam [Xanax] 0.25 mg tablet 0.125 mg PO TID Qty: 10 RF: 0 cephalexin 500 mg capsule 500 mg PO BID Qty: 14 RF: 0 naproxen 500 mg tablet 500 mg PO BID Qty: 10 RF: 0 lidocaine [Lidoderm] 5 % adhesive patch,medicated 1 patch topical DAILY Qty: 15 RF: 0 Rody Davis PA-C - Last Filed: 04/25/20 20:59>
[2020-04-25] MEDS: polyethylene glycoL 3350 17 GM POWD.PACK PO (18:11)
--- NOTE | 2020-04-25 18:21 | PC.NURSE ---
pt alert, pt reports having pain on both sides of his abd, but pain only with movement, denies pain at this time pt denies si/hi
[2020-04-25 19:14] VITALS: BP 167/63; PULSE 54; RESP 16; TEMP 36.3; O2SAT 94
--- NOTE | 2020-04-25 20:55 | PC.NURSE ---
faxed to [facility]
[2020-04-25 22:00] VITALS: BP 145/68; PULSE 63; RESP 16; TEMP 36.3; O2SAT 94
--- NOTE | 2020-04-25 23:16 | MHC.CM.ED ---
Addendum entered by Caterina Powell 04/25/20 23:31: Gladys FARMWORKER ANIMAL updated on conversations with , and with nurse at [facility], including request for MAR and report from about taking oxycodone 5mg q3h. Gladys aware that pt will need to stay overnight and CM will need to call DON at [facility] regarding if patient can return to SNF. PT eval ordered for am. Per staff at [facility], pt has not been participating in PT, fell once with injury but needing robles lift to get up and attempted to choke himself with his call jung. Cleared by CARE TEAM, does not meet criteria for inpt therapy. [facility] [phone] Original Note: CM met with pt. Pt slightly confused as to place and time. Aware that he is at the hospital, but unsure why. States he has services when at his home, but thinks they are from [facility]. Tells CM that he is trying to work with PT, but he has pain and cannot move. Pt encourage CM to call , Carla/HCP ([phone]). HCP on file. CM spoke with Carla, who thinks pt has been more confused since the UTI and since taking oxycodone 5 mg every 3 hours for pain. States he feels lonely and abandoned at the SNF. Tells CM that his services at home are from and agency called, [facility] [place]( [phone]). States he had daily [employer] care for 2 hours and a nurse came twice a week/medication management. Carla stated she spoke with [facility], Marguerite the DON, and expects her to return to the facility in the morning. CM called [facility] and spoke with night nurse, Christopher. Reported that [facility] CARE TEAM has cleared the patient and he could return to facility. Christopher recommends calling DON at [facility] in the morning (Marguerite [phone] ext [phone]). Reviewed chart from [facility] and no MAR was sent. Called Christopher at [phone] and requested MAR to be faxed. Fax number given. Above reviewed with Fabi RN. Pt to remain in ED tonight pending return to [facility], ? PT evaluation. CM to follow for d/c needs.
[2020-04-26] VITALS (9 sets, daily range): BP systolic 162–175; BP diastolic 81–83; PULSE 52–69; RESP 16–18; TEMP 36.6; O2SAT 93–95
--- NOTE | 2020-04-26 07:55 | PC.NURSE ---
PT SEEN BY PHYSICAL THERAPY (EARNEST), PT AWARE OF PLAN OF CARE.
--- NOTE | 2020-04-26 09:05 | PC.NURSE ---
PT IS A/O X 3 NO SOB/MERCEDES NOTED SKIN PINK WARM DRY SPEAKS IN FULL SENTENCES. INGRID LOWER EXT 1+ PITTING EDEMA. PT C/O 3/10 R HIP PAIN. PT ATE 25% OF BREAKFAST. PT SEEN BY PHYSICAL THERAPY EARLIER THIS AM. PT AWARE OF PLAN OF CARE FOR REHAB PLACEMENT.
--- NOTE | 2020-04-26 10:51 | PC.NURSE ---
pt is incontinent of large amt of urine. bed changed and reposition to l side with pillow. mlp (jaime) at bedside, pt c/o increase back and sharron hip pain with any kind of movement. pt did state pain level but moans/groans loudly with increase pain.
--- NOTE | 2020-04-26 11:06 | MHC.CM.ED ---
Patient remains in ER. Clinical updates sent to [facility] on [address] via [employer]. Liaison will review with building. Continue to monitor for d/c needs.
--- NOTE | 2020-04-26 11:25 | PC.NURSE ---
PT INCONTINENT OF MODERATE AMT OF URINE. BED PADDING CHANGED AND PT REPOSITIONED TO THE LEFT SIDE;
--- NOTE | 2020-04-26 11:29 | ECG_ITS ---
Test Reason : ALTER MENTAL Blood Pressure : / mmHG Vent. Rate : 067 BPM Atrial Rate : 067 BPM P-R Int : 156 ms QRS Dur : 112 ms QT Int : 430 ms P-R-T Axes : 000 -30 087 degrees QTc Int : 454 ms Sinus rhythm with Premature atrial complexes Left axis deviation Nonspecific ST abnormality Abnormal ECG When compared with ECG of 02-APR-2020 14:05, No significant change was found Referred By: Yesika Gavin Electronically Signed By:Jeramie Hunter
--- NOTE | 2020-04-26 11:53 | PC.NURSE ---
pt's tea strickland ([phone]) [place] [facility] [place] mlp (jaime), she is aware of plan of care for pt.
[2020-04-26 11:54] LABS: MANUAL DIFF FLAG NO
--- NOTE | 2020-04-26 11:54 | PC.NURSE ---
lab work, resp panel and ekg done.
[2020-04-26 11:59] LABS: Basophils Percent Auto 0.3 % (0-2); Eosinophils Absolute Auto 0.2 X10*3/uL (0.0-0.4); Eosinophils Percent Auto 1.7 % (0-4); Hemoglobin 15.2 g/dl (14.0-18.0); Imm Gran Abs Auto 0.04 X10*3/uL (0.00-0.03); Imm Gran Pct Auto 0.4 % (0.0-0.4); Lymphocytes Absolute Auto 1.6 X10*3/uL (1.2-4.9); Lymphocytes Percent Auto 16.3 % (20-40); Mean Corpuscular HGB Conc 33.8 g/dl (31.0-36.0); Mean Corpuscular Volume 94.7 fL (80-98); Mean Platelet Volume 11.5 fL (9.4-12.4); Monocytes Absolute Auto 1.2 X10*3/uL (0.1-1.2); Monocytes Percent Auto 12.8 % (2-11); Neutrophils Absolute Auto 6.5 X10*3/uL (2.0-8.3); Neutrophils Percent Auto 68.5 % (45-73); Platelet Count 200 X10*3/uL (160-400); Red Blood Count 4.75 X10*6/uL (4.60-5.80); Red Cell Distribution Width 12.6 % (11.0-16.0); White Blood Count 9.5 X10*3/uL (4.8-10.8)
--- NOTE | 2020-04-26 12:02 | PC.NURSE ---
MARIA DE JESUS FROM [facility] ([phone]).
[2020-04-26 12:06] LABS: INTERNATIONAL NORM RATIO 1.2 (0.9-1.1); Prothrombin Time 14.8 SEC (10.8-13.0)
--- NOTE | 2020-04-26 12:08 | MHC.CM.ED ---
[facility] is not able to offer a bed. Spoke with Vickie at the [facility]. Patient is service connected for rehab. Referral broadcasted in [place]. Spoke with patient's HCP, Carla via telephone at [phone]. Carla just got off the phone with ANASTASIIA Napoles. Labs and testing are in the process of being ordered. Carla does not feel patient can safely go home at this time because there is no one to provide 24 hour care for him. Carla is agreeable to referral being broadcasted in [facility]. Received telephone call from Kalpana of [facility] The building is in the process of re-evaluating to see if they can offer a bed. Continue to monitor for d/c needs.
[2020-04-26 12:24] LABS: Troponin-I High Sensitivity 16.9 ng/L (<3.5-35.0)
[2020-04-26 12:25] LABS: Alanine Aminotransferase 39 U/L (0-40); Albumin Level 3.6 g/dL (3.5-5.0); Alkaline Phosphatase 136 U/L (39-117); Anion Gap 13 (12-20); Aspartate Amino Transferase 43 U/L (5-37); Bilirubin Direct 0.5 mg/dL (0.0-0.5); Blood Urea Nitrogen 33 mg/dL (9-16); Calcium 9.1 mg/dL (8.4-10.2); Carbon Dioxide 28 mmol/L (22-29); Chloride 106 mmol/L (96-108); Creatinine Clr Calc Pharmacy 84.7; Estimated Glomerular Filt Rate > 60; Glucose Random 166 mg/dL (60-115); Magnesium 1.9 mg/dL (1.6-2.6); Potassium 4.3 mmol/L (3.3-5.1); Sodium 143 mmol/L (135-145); Total Protein 6.4 g/dL (6.5-8.0)
[2020-04-26 12:33] LABS: Influenza A PCR NEGATIVE (Negative); Influenza B PCR NEGATIVE (Negative); Resp Syncy Virus RNA Qual PCR NEGATIVE (Negative); SARS COV2 PCR INHOUSE NEGATIVE (Negative)
[2020-04-26] MEDS: Losartan Potassium 50 MG TABLET 100 MG PO (13:43)
[2020-04-26] MEDS: ALPRAZolam 0.25 MG TABLET PO (13:43)
[2020-04-26] MEDS: amLODIPine Besylate 5 MG TABLET PO (13:44)
[2020-04-26] MEDS: Propranolol HCL 40 MG TABLET 80 MG PO (13:44)
[2020-04-26] MEDS: Gabapentin 300 MG CAPSULE PO (13:44)
[2020-04-26] MEDS: polyethylene glycoL 3350 17 GM POWD.PACK PO (13:45)
[2020-04-26] MEDS: 0.9 % Sodium Chloride 1,000 ML 999 ML IVCONT (14:59)
[2020-04-26 15:19] LABS: Troponin-I High Sensitivity 21.8 ng/L (<3.5-35.0)
--- NOTE | 2020-04-26 16:00 | MHC.CM.ED ---
[facility] is able to offer a bed. Patient can leave at 5pm. [facility] booked. [facility] with chart. Patient, Isatu Aguirre RN and Yesika LAURENT aware. Continue to monitor for d/c needs.
[2020-04-26] MEDS: LORazepam 1 MG TABLET PO (16:11)
[2020-04-26] MEDS: levoFLOXacin 250 MG TABLET PO (16:45)
--- NOTE | 2020-04-26 17:28 | PC.NURSE ---
clonidine 0.3mg patch WAS NOT found on pt's body (back). md ruelas.
--- NOTE | 2020-04-26 17:50 | PC.NURSE ---
nurse to nurse given to chad hall).
[2020-04-26 18:09] LABS: Glucose Urine UA NEG (NEG); Leukocyte Esterase Urine NEG (NEG); Nitrite Urine NEG (NEG); PH 5.5 (5.0-8.0); Specific Gravity - Urine 1.025 (1.005-1.025); Urine Blood 1+ (NEG); Urine Ketones NEG (NEG); Urine Protein TRACE MG/DL (NEG-TRACE)
[2020-04-26 18:10] LABS: Appearance Urine CLEAR; Color Urine YELLOW
[2020-04-26 18:19] LABS: Bacteria Urine 1+ /LPF; RBC Urine 0-2 /HPF (0); Squamous Epithelial Cell Urine 1+ /LPF; WBC Urine 0 /HPF (0-4)
== END 2020-04-26 17:56 | disposition skilled nursing facility (03) ==
PROVIDERS: Physician Assistant Medical; Emergency Provider Emergency Medicine; PCP Family Medicine
DX: R41.82 Altered mental status, unspecified (principal); R45.851 Suicidal ideations; N39.0 Urinary tract infection, site not specified; I10 Essential (primary) hypertension; M25.552 Pain in left hip; M25.551 Pain in right hip; Z20.822 Contact with and (suspected) exposure to COVID-19; Z79.2 Long term (current) use of antibiotics; Z79.899 Other long term (current) drug therapy
CPT/HCPCS: 0241U; 36415; 70450; 71045; 72192; 80048; 80076; 81001; 83735; 84484; 85025; 85610; 93005; 96360; 96372; 97162; 99285

== ENCOUNTER 2020-04-27 19:54 | Emergency (ER) | payer OTHER, MEDICARE, SELFPAY ==
[2020-04-27 20:08] VITALS: BP 111/83; PULSE 51; RESP 17; TEMP 36.7; O2SAT 98; BMI 43.6
--- NOTE | 2020-04-27 21:29 | ED_ITS ---
HPI - General Adult General Chief complaint: General Medical Stated complaint: constipation Time Seen by Provider: 04/27/20 21:29 Source: RN notes reviewed Mode of arrival: EMS Limitations: no limitations History of Present Illness HPI narrative: Patient was here yesterday sent back to correction comes back for constipation able to move his bowels was given Mag citrate in correction without much response. Patient has CT scan done which showed large amount of stool in the rectum area. Patient denied any nausea vomiting or significant abdominal pain Related Data Home Medications Medication Instructions Recorded Confirmed oxybutynin chloride 10 mg PO DAILY 04/02/20 04/26/20 Saccharomyces boulardii 250 mg PO BID 04/26/20 04/26/20 acetaminophen 650 mg PO Q4H PRN 04/26/20 04/26/20 alprazolam [Xanax] 0.25 mg PO DAILY 04/26/20 04/26/20 amlodipine 5 mg PO DAILY 04/26/20 04/26/20 bisacodyl [Dulcolax (bisacodyl)] 10 mg ME DAILY PRN 04/26/20 04/26/20 bupropion HCl 150 mg PO BID 04/26/20 04/26/20 cholecalciferol (vitamin D3) 125 mcg PO Q7D 04/26/20 04/26/20 [Vitamin D3] ciprofloxacin HCl [Cipro] 250 mg PO BID 04/26/20 04/26/20 citalopram 20 mg PO DAILY 04/26/20 04/26/20 clonidine 1 patch TRANSDERMAL QWEEK 04/26/20 04/26/20 cyanocobalamin (vitamin B-12) 1,000 mcg IM Q7D 04/26/20 04/26/20 gabapentin 300 mg PO BID 04/26/20 04/26/20 losartan 100 mg PO DAILY 04/26/20 04/26/20 magnesium hydroxide [Milk of 30 ml PO BEDTIME PRN 04/26/20 04/26/20 Magnesia] olanzapine 2.5 mg PO BEDTIME 04/26/20 04/26/20 oxycodone 5 mg PO Q3H PRN 04/26/20 04/26/20 oxycodone 5 mg PO Q6H PRN 04/26/20 04/26/20 peg [id number] 1 drp OPHTHALMIC (EYE) BID 04/26/20 04/26/20 [Artificial Tears([id number])] polyethylene glycol 3350 17 g PO DAILY 04/26/20 04/26/20 propranolol 80 mg PO BID 04/26/20 04/26/20 sennosides [senna] 17.2 mg PO BEDTIME 04/26/20 04/26/20 Previous Rx's Medication Instructions Recorded lidocaine [Lidoderm] 1 patch TOPICAL DAILY #15 ea 04/04/20 acetaminophen-codeine 1 tab PO Q8H PRN #30 tab 04/26/20 Allergies Allergy/AdvReac Type Severity Reaction Status Date / Time No Known Allergies Allergy Verified 04/02/20 15:54 Review of Systems Review of Systems: Constitutional : No Weight loss, No Fever, No Chills ENT/Mouth : No sore throat, No Rhinorrhea Eyes: No Eye Pain, No Swelling Cardiovascular : No Chest Pain, no palpitations Respiratory : No Cough, No Sputum, no shortness of breath Gastrointestinal : no Nausea, No Vomiting, No Diarrhea, No abdominal Pain, no black stools Genitourinary : No Dysuria, No Urinary Frequency Musculoskeletal : No joint pain, No Myalgias, No Joint Swelling Skin : No Skin Lesions, No rash Neuro : No Weakness, No Numbness, No Dizziness, No Headache Psych : No Anxiety/Panic, No Depression Heme/Lymph: No Bruising, No Lymphadenopathy Endocrine : No Polyuria, No Polydipsia All other systems reviewed and are negative [facility] Past Medical History Medical History Anxiety Depression HTN (hypertension) Social History Social History Alcohol intake: never Smoking Status: Never smoker Use of substances other than those prescribed or required for medical reasons: No Advance Directives: Yes Advance Directives Date on File: 04/26/20 Physical Exam Vital Signs: Vital Signs: Last Vital Signs Temp 98.1 F 04/27/20 21:58 Pulse 54 04/27/20 21:58 Resp 18 04/27/20 21:58 BP 123/67 04/27/20 21:58 Pulse Ox 94 04/27/20 21:58 Body Mass Index 43.6 Appearance: Alert. Oriented X3. No acute distress. Eyes: Pupils equal, round and reactive to light. ENT: Pharynx normal. Neck: Normal inspection. Neck supple. CVS: Normal heart rate and rhythm. Pulses normal. Respiratory: No respiratory distress. Breath sounds normal. Abdomen: Gaseous distended and nontender. Bowel sounds are present, no mass palpable, no CVA tenderness Rectal: Large amount of soft stool in rectum Skin: Skin warm and dry. Normal skin color. Normal skin turgor. Extremities: No lower extremity edema. Neuro: Oriented X 3. No motor deficit. No sensory deficit. Medical Decision Making MDM Narrative Medical decision making narrative: Patient with constipation, manual disimpaction was done and patient had a big bowel movement in the ER will discharge patient back to correction Discharge Plan Discharge Clinical Impression: Constipation Patient Disposition: Xfer [facility] Instructions: Constipation (ED) Additional Instructions: Continue to give stool softener as prescribed by PCP follow the protocol Prescriptions: No Action oxybutynin chloride 10 mg Tablet Extended Release 24hr 10 mg PO DAILY RF: 0 lidocaine [Lidoderm] 5 % adhesive patch,medicated 1 patch topical DAILY Qty: 15 RF: 0 acetaminophen 325 mg Tablet 650 mg PO Q4H PRN (Reason: fever/pain) RF: 0 amlodipine 5 mg Tablet 5 mg PO DAILY RF: 0 alprazolam [Xanax] 0.25 mg tablet 0.25 mg PO DAILY RF: 0 bupropion HCl 150 mg Tablet Sustained-Release 12 Hr 150 mg PO BID RF: 0 Artificial Tears([id number]) 1-0.2-0.2 % Drops 1 drp OPHTHALMIC (EYE) BID RF: 0 sennosides [senna] 8.6 mg Tablet 17.2 mg PO BEDTIME RF: 0 propranolol 80 mg Tablet 80 mg PO BID RF: 0 polyethylene glycol 3350 17 gram Powder In Packet 17 g PO DAILY RF: 0 clonidine 0.2 mg/24 hr Patch Weekly 1 patch TRANSDERMAL QWEEK RF: 0 olanzapine 2.5 mg Tablet 2.5 mg PO BEDTIME RF: 0 citalopram 20 mg Tablet 20 mg PO DAILY RF: 0 magnesium hydroxide [Milk of Magnesia] 400 mg/5 mL Suspension 30 ml PO BEDTIME PRN (Reason: Constipation) RF: 0 bisacodyl [Dulcolax (bisacodyl)] 10 mg Suppository 10 mg ME DAILY PRN (Reason: Constipation) RF: 0 cyanocobalamin (vitamin B-12) 1,000 mcg/mL Solution 1,000 mcg IM Q7D RF: 0 gabapentin 300 mg Capsule 300 mg PO BID RF: 0 losartan 100 mg Tablet 100 mg PO DAILY RF: 0 oxycodone 5 mg Tablet 5 mg PO Q6H PRN (Reason: Pain (Scale Score 1-3)) RF: 0 Saccharomyces boulardii 250 mg Capsule 250 mg PO BID RF: 0 cholecalciferol (vitamin D3) [Vitamin D3] 125 mcg (5,000 unit) Tablet 125 mcg PO Q7D RF: 0 ciprofloxacin HCl [Cipro] 250 mg Tablet 250 mg PO BID RF: 0 oxycodone 5 mg Tablet 5 mg PO Q3H PRN (Reason: Pain (Scale Score 4-6)) RF: 0 acetaminophen-codeine 300-30 mg tablet 1 tab PO Q8H PRN (Reason: pain) Qty: 30 RF: 0 Interventions: ED Discharge Assessment Last Done: 04/27/20 23:36 Discharge Date/Time: 04/27/20 23:37
[2020-04-27 21:58] VITALS: BP 123/67; PULSE 54; RESP 18; TEMP 36.7; O2SAT 94
--- NOTE | 2020-04-27 22:07 | PC.NURSE ---
Pt had large BM, soft but formed.
--- NOTE | 2020-04-27 22:51 | PC.NURSE ---
Report called to [facility] to Elisa-nurse. Nurse stated no questions at this time.
== END 2020-04-27 23:37 | disposition skilled nursing facility (03) ==
PROVIDERS: Emergency Provider Internal Medicine; PCP Family Medicine Geriatric Medicine
DX: K59.00 Constipation, unspecified (principal); Z79.899 Other long term (current) drug therapy
CPT/HCPCS: 99284; 99285

== ENCOUNTER 2020-07-06 16:01 | Emergency (ER) | payer OTHER, MEDICARE, SELFPAY ==
[2020-07-06] VITALS (7 sets, daily range): BP systolic 142–188; BP diastolic 59–88; PULSE 62–80; RESP 17–20; TEMP 36.4–37.1; O2SAT 94–96; BMI 39.5
--- NOTE | ~2020-07-06 | XR_ITS ---
EXAMINATION: XR ABDOMEN KUB CLINICAL INDICATION: Evaluate stool burden COMPARISON: None TECHNIQUE: AP views of the abdomen. FINDINGS: Stool and air seen within the colon more so in the transverse colon. Few scattered loops of air-filled small bowel are seen but no obstructive changes noted. No gross free air but this is a supine film. Degenerative changes in the spine and hips. No suspicious calcifications or radiopaque foreign body. XR/XR KUB IMPRESSION: Unremarkable bowel gas pattern with stool and air seen within the colon
--- NOTE | 2020-07-06 16:14 | ED_ITS ---
HPI - Male Genitourinary General Chief complaint: Urogenital-Male Stated complaint: ?UTI Time Seen by Provider: 07/06/20 16:09 Source: patient and EMS Mode of arrival: EMS Limitations: no limitations History of Present Illness HPI Narrative: 74-year-old male coming from home with a past medical history of anxiety, depression, hypertension, chronic constipation here with complaints of urinary retention since 05:00. Patient tells me that sometimes he does have problems with hesitancy and dribbling of the urine however since 05:00 this morning he has been unable to void. He tells me he is drooling some very small amounts but unable to empty his bladder and has a lot of pain in his lower abdomen. No fevers, chills. He is also complaining of some constipation which he has had for 3 days. No abdominal pain, nausea or vomiting. Related Data Home Medications Medication Instructions Recorded Confirmed alprazolam [Xanax] 0.25 mg PO TID PRN 04/26/20 07/06/20 amlodipine 5 mg PO DAILY 04/26/20 07/06/20 citalopram 20 mg PO DAILY 04/26/20 07/06/20 clonidine 1 patch TRANSDERMAL QWEEK 04/26/20 07/06/20 gabapentin 300 mg PO BID 04/26/20 07/06/20 losartan 100 mg PO DAILY 04/26/20 07/06/20 buspirone 10 mg PO BID 07/06/20 07/06/20 furosemide [Lasix] 20 mg PO DAILY 07/06/20 07/06/20 oxybutynin chloride 15 mg PO DAILY 07/06/20 07/06/20 propranolol [Inderal LA] 80 mg PO BID 07/06/20 07/06/20 Allergies Allergy/AdvReac Type Severity Reaction Status Date / Time No Known Allergies Allergy Verified 04/02/20 15:54 Review of Systems Review of Systems: Yes all other systems are reviewed and are negative Constitutional: Constitutional: Reports no additional constitutional complaints, Denies body ache(s), Denies chills, Denies fever(s), Denies headache(s) and Denies weakness Eyes: Eyes: Reports no additional eye complaints and Denies change in vision ENT: Reports system reviewed and no additional complaints, except as documented, Denies dizziness, Denies headache(s), Denies nasal congestion, Denies nasal discharge and Denies neck pain Cardiovascular: Cardiovascular: Reports no additional cardiovascular complaints, Denies chest pain, Denies leg edema and Denies dyspnea Respiratory: Respiratory: Reports no additional respiratory complaints, Denies cough and Denies dyspnea Gastrointestinal: Gastrointestinal: Reports no additional gastrointestinal complaints, Reports abdominal pain (Suprapubic), Denies diarrhea, Denies nausea and Denies vomiting Genitourinary: Genitourinary: Denies oliguria, Reports difficulty urinating, Denies dysuria, Denies flank pain, Denies urinary frequency, Reports urinary hesitancy and Denies urinary incontinence Musculoskeletal: Musculoskeletal: Reports no additional musculoskeletal complaints, Denies back pain, Denies arthralgias, Denies joint swelling, Denies neck pain, Denies numbness and Denies tingling Integumentary/Breasts: Skin/Breast: Reports system reviewed and no additional complaints, except as docu and Denies rash Neurologic: Reports system reviewed and no additional complaints, except as documented, Denies Abnormal speech present, Denies dizziness, Denies headache(s), Denies numbness, Denies tingling and Denies weakness PMF Past Medical History Attestation statement: The following information was validated with the patient. Source: old records reviewed and nursing notes reviewed Medical History Anxiety Depression HTN (hypertension) Social History Social History Alcohol intake: never Smoking Status: Never smoker Use of substances other than those prescribed or required for medical reasons: No Advance Directives: Yes Advance Directives on File: Yes Advance Directives Date on File: 04/26/20 Physical Exam Vital Signs: Vital Signs: Last Vital Signs Temp 97.7 F 07/06/20 19:55 Pulse 62 07/06/20 19:55 Resp 18 07/06/20 19:55 BP 168/75 H 07/06/20 19:55 Pulse Ox 96 07/06/20 19:55 Body Mass Index 39.5 Const: General: cooperative, healthy appearing, comfortable and no acute distress Orientation/consciousness: patient oriented x3 Limitations: no limitations HENMT: Head: Yes normal to inspection Ears: hearing grossly normal bilaterally General nose exam: Normal external nose present Face and sinus: Yes normal facial exam Mouth: Normal oral and palatal mucosa present Throat: Yes posterior oropharynx normal Eyes: General: appearance normal, both eyes and all related structures Pupils: Equal, round and reactive pupils present Neck: Neck: Yes normal visual inspection Chest: Chest palpation & inspection: normal inspection of the chest Resp: Effort & Inspection: normal respiratory effort Auscultation: clear to auscultation bilaterally Cardio: Rate: regular rate Rhythm: regular rhythm Peripheral pulses: Per ipheral pulses 2+ throughout GI: Inspection: Yes normal to inspection Palpation (GI): Soft to palpation and Tenderness to palpation present (GI) (Suprapubic discomfort with distended bladder ) Auscultation: normal bowel sounds Rectal Exam - Male: Yes visual inspection normal and Yes normal sphincter tone : General: Yes Bimanual renal exam normal bilaterally Male General Exam: Yes normal external exam Penis: normal penis Meatus: meatus normal Scrotum: scrotum normal Back/Spine/Pelvis: Thoracic/Lumbar Spine: thoracic and lumbar spine normal to inspection Skin: General skin exam: no rashes or lesions noted Neuro: General: patient oriented x3, no focal motor deficits and normal sensation to monofilament Cranial nerves: Yes Equal, round and reactive pupils present Cognition (Neuro): normal cognition Speech: No Abnormal speech present Gait exam (Neuro): Normal gait present Motor exam (neuro): 5/5 motor strength present throughout Extrem: General: Yes normal to inspection, Yes no calf tenderness and Yes edema (Mild bilateral) Course Course Course Narrative: 74-year-old male here with urinary retention. Bladder scan shows greater than 650 of urine in the bladder. Unable to get a Vigil catheter despite 3 attempts with different sized catheters and a coude catheter. Unable to pass the prostate. Discussed with Dr. Kowalski who will come place a Vigil catheter in the patient. 1723-Patient able to dribble a small amount and so a urine sample was sent which is consistent with a UTI. At this time infection is suspected. Antibiotics ordered. Due to retention will check labs to check renal function. Patient also complaining of some chronic constipation. Rectal exam shows no impaction. Patient given a Fleet enema. Will check KUB 1905-labs are unremarkable with the exception for mild leukocytosis with no shift. Patient received antibiotics for his UTI. Dr. Kowalski was able to place a Vigil catheter at the bedside. Patient tells me he is feeling weak and is currently living at home alone. Will need placement in a short-term rehab. 1999-Discussed with Dr Feng who declined admission. Plan for PT/CM in AM, COVID screen for placement, vigil catheter per urology for 4 weeks and follow-up in office, oral antibiotics. At this time patient placed in physician observation pending PT in AM, CM consult. 2100-Patient placed in physician observation pending above. Sign out to night team pending above MDM - Male Genitourinary Medical Records Attestation: I reviewed the patient's medical records. Lab Data Attestation: I reviewed the patient's lab results. Result diagrams: 07/06/20 17:15 07/06/20 17:15 Labs: Lab Results 07/06/20 07/06/20 07/06/20 Range/Units 16:42 17:15 17:15 WBC 13.2 H (4.8-10.8) X10*3/uL RBC 4.23 L (4.60-5.80) X10*6/uL Hgb 13.9 L (14.0-18.0) g/dl Hct 39.7 L (42-52) % MCV 93.9 (80-98) fL MCH 32.9 (27.0-33.0) pg MCHC 35.0 (31.0-36.0) g/dl RDW 13.2 (11.0-16.0) % Plt Count 223 (160-400) X10*3/uL MPV 10.7 (9.4-12.4) fL Immature Gran % (Auto) 0.4 (0.0-0.4) % Neut % (Auto) 78.8 H (45-73) % Lymph % (Auto) 11.8 L (20-40) % [place] % (Auto) 8.0 (2-11) % Eos % (Auto) 0.8 (0-4) % Baso % (Auto) 0.2 (0-2) % Lymph # (Auto) 1.6 (1.2-4.9) X10*3/uL [place] # (Auto) 1.1 (0.1-1.2) X10*3/uL Eos # (Auto) 0.1 (0.0-0.4) X10*3/uL Baso # (Auto) 0.0 (0.0-0.2) X10*3/uL Abs Immat Gran (auto) 0.05 H (0.00-0.03) X10*3/uL Absolute Neuts (auto) 10.4 H (2.0-8.3) X10*3/uL Absolute Nucleated RBC 0.000 (0.0-0.012) X10*3/uL Nucleated RBC % (auto) 0.0 (0.0-0.2) /100WBC Sodium 142 (135-145) mmol/L Potassium 3.8 (3.3-5.1) mmol/L Chloride 106 (96-108) mmol/L Carbon Dioxide 27 (22-29) mmol/L Anion Gap 13 (12-20) BUN 17 H (9-16) mg/dL Creatinine 0.90 (0.5-1.4) mg/dL Estim Creat Clear Calc 102.6 Estimated GFR > 60 Random Glucose 115 (60-115) mg/dL Lactic Acid (0.5-2.0) mmol/L Calcium 9.1 (8.4-10.2) mg/dL Magnesium 1.7 (1.6-2.6) mg/dL Total Bilirubin 1.0 (0.0-1.0) mg/dL Direct Bilirubin 0.4 (0.0-0.5) mg/dL AST 17 D (5-37) U/L ALT 19 (0-40) U/L Alkaline Phosphatase 120 H (39-117) U/L Total Protein 6.0 L (6.5-8.0) g/dL Albumin 3.8 (3.5-5.0) g/dL Urine Color YELLOW Urine Appearance CLEAR Urine pH 6.0 (5.0-8.0) Ur Specific [place] 1.020 (1.005-1.025) Urine Protein 1+ H (NEG-TRACE) MG/DL Urine Glucose (UA) NEG (NEG) MG/DL Urine Ketones NEG (NEG) MG/DL Urine Blood 3+ H (NEG) Urine Nitrite NEG (NEG) Ur Leukocyte Esterase 1+ H (NEG) Urine RBC 15-29 H (0) /HPF Urine WBC 1-4 (0-4) /HPF Ur Squamous Epith Cells 1+ /LPF Urine Bacteria TRACE /LPF Urine Yeast 1+ /HPF COVID-19 (JENNA) (Negative) COVID-19 Clin Com 07/06/20 07/06/20 Range/Units 17:15 19:58 WBC (4.8-10.8) X10*3/uL RBC (4.60-5.80) X10*6/uL Hgb (14.0-18.0) g/dl Hct (42-52) % MCV (80-98) fL MCH (27.0-33.0) pg MCHC (31.0-36.0) g/dl RDW (11.0-16.0) % Plt Count (160-400) X10*3/uL MPV (9.4-12.4) fL Immature Gran % (Auto) (0.0-0.4) % Neut % (Auto) (45-73) % Lymph % (Auto) (20-40) % [place] % (Auto) (2-11) % Eos % (Auto) (0-4) % Baso % (Auto) (0-2) % Lymph # (Auto) (1.2-4.9) X10*3/uL [place] # (Auto) (0.1-1.2) X10*3/uL Eos # (Auto) (0.0-0.4) X10*3/uL Baso # (Auto) (0.0-0.2) X10*3/uL Abs Immat Gran (auto) (0.00-0.03) X10*3/uL Absolute Neuts (auto) (2.0-8.3) X10*3/uL Absolute Nucleated RBC (0.0-0.012) X10*3/uL Nucleated RBC % (auto) (0.0-0.2) /100WBC Sodium (135-145) mmol/L Potassium (3.3-5.1) mmol/L Chloride (96-108) mmol/L Carbon Dioxide (22-29) mmol/L Anion Gap (12-20) BUN (9-16) mg/dL Creatinine (0.5-1.4) mg/dL Estim Creat Clear Calc Estimated GFR Random Glucose (60-115) mg/dL Lactic Acid 1.6 (0.5-2.0) mmol/L Calcium (8.4-10.2) mg/dL Magnesium (1.6-2.6) mg/dL Total Bilirubin (0.0-1.0) mg/dL Direct Bilirubin (0.0-0.5) mg/dL AST (5-37) U/L ALT (0-40) U/L Alkaline Phosphatase (39-117) U/L Total Protein (6.5-8.0) g/dL Albumin (3.5-5.0) g/dL Urine Color Urine Appearance Urine pH (5.0-8.0) Ur Specific [place] (1.005-1.025) Urine Protein (NEG-TRACE) MG/DL Urine Glucose (UA) (NEG) MG/DL Urine Ketones (NEG) MG/DL Urine Blood (NEG) Urine Nitrite (NEG) Ur Leukocyte Esterase (NEG) Urine RBC (0) /HPF Urine WBC (0-4) /HPF Ur Squamous Epith Cells /LPF Urine Bacteria /LPF Urine Yeast /HPF COVID-19 (JENNA) Negative (Negative) COVID-19 Clin Com See Note Imaging Data Abdominal x-ray: Attestation: I personally reviewed and interpreted this imaging study as follows: Radiologist's impression: [address] [id number] ReportSigned Patient: Benito Arciniega#: [id number]: 5Acct:[id number]/Sex: 74 / MADM Date: 07/06/20Loc: [place] Dr: Ordering Physician: DONAVON ORTIZ NP Date of Service: 07/06/20 Procedure(s): XR KUB Accession Number(s): [id number] cc: DONAVON ORTIZ NP~ EXAMINATION: XR ABDOMEN KUB CLINICAL INDICATION: Evaluate stool burden COMPARISON: None TECHNIQUE: AP views of the abdomen. FINDINGS: Stool and air seen within the colon more so in the transverse colon. Few scattered loops of air-filled small bowel are seen but no obstructive changes noted. No gross free air but this is a supine film. Degenerative changes in the spine and hips. No suspicious calcifications or radiopaque foreign body. XR/XR KUB IMPRESSION: Unremarkable bowel gas pattern with stool and air seen within the colon Discharge Plan Discharge Clinical Impression: Urethral stricture, Acute urinary retention, Urinary tract infection Patient Disposition: [facility] Instructions: Urinary Retention in Men (ED), Urinary Tract Infection in Older Adults (ED) Prescriptions: No Action amlodipine 5 mg Tablet 5 mg PO DAILY RF: 0 alprazolam [Xanax] 0.25 mg tablet 0.25 mg PO TID PRN (Reason: Anxiety) RF: 0 clonidine 0.2 mg/24 hr Patch Weekly 1 patch TRANSDERMAL QWEEK RF: 0 citalopram 20 mg Tablet 20 mg PO DAILY RF: 0 gabapentin 300 mg Capsule 300 mg PO BID RF: 0 losartan 100 mg Tablet 100 mg PO DAILY RF: 0 oxybutynin chloride 15 mg Tablet Extended Release 24 Hr 15 mg PO DAILY RF: 0 buspirone 10 mg Tablet 10 mg PO BID RF: 0 propranolol [Inderal LA] 80 mg Capsule,Extended Release 24 Hr 80 mg PO BID RF: 0 furosemide [Lasix] 20 mg Tablet 20 mg PO DAILY RF: 0 Referrals: Derrick Kowalski MD [Physician] - 08/03/20
[2020-07-06 16:48] LABS: Glucose Urine UA NEG (NEG); Leukocyte Esterase Urine 1+ (NEG); Nitrite Urine NEG (NEG); UACC Culture Trigger YES; Urine Blood 3+ (NEG); Urine Ketones NEG (NEG); Urine Protein 1+ MG/DL (NEG-TRACE)
[2020-07-06 16:49] LABS: Appearance Urine CLEAR; Color Urine YELLOW
[2020-07-06 16:55] LABS: Bacteria Urine TRACE /LPF; Squamous Epithelial Cell Urine 1+ /LPF
[2020-07-06] MEDS: Sodium Phosphate,Mono-Dibasic 133 ML ENEMA PR (17:08)
[2020-07-06 17:21] LABS: MANUAL DIFF FLAG NO
[2020-07-06 17:25] LABS: Basophils Percent Auto 0.2 % (0-2); Eosinophils Absolute Auto 0.1 X10*3/uL (0.0-0.4); Eosinophils Percent Auto 0.8 % (0-4); Hematocrit 39.7 % (42-52); Hemoglobin 13.9 g/dl (14.0-18.0); Imm Gran Abs Auto 0.05 X10*3/uL (0.00-0.03); Imm Gran Pct Auto 0.4 % (0.0-0.4); Lymphocytes Absolute Auto 1.6 X10*3/uL (1.2-4.9); Lymphocytes Percent Auto 11.8 % (20-40); Mean Corpuscular Hemoglobin 32.9 pg (27.0-33.0); Mean Corpuscular Volume 93.9 fL (80-98); Mean Platelet Volume 10.7 fL (9.4-12.4); Monocytes Absolute Auto 1.1 X10*3/uL (0.1-1.2); Neutrophils Absolute Auto 10.4 X10*3/uL (2.0-8.3); Neutrophils Percent Auto 78.8 % (45-73); Platelet Count 223 X10*3/uL (160-400); Red Blood Count 4.23 X10*6/uL (4.60-5.80); Red Cell Distribution Width 13.2 % (11.0-16.0); White Blood Count 13.2 X10*3/uL (4.8-10.8)
[2020-07-06] MEDS: cefTRIAXone sodium 1 GM in 0.9 % Sodium Chloride 50 ML IV (17:38)
[2020-07-06 17:42] LABS: Lactic Acid 1.6 mmol/L (0.5-2.0)
[2020-07-06 17:46] LABS: Alanine Aminotransferase 19 U/L (0-40); Albumin Level 3.8 g/dL (3.5-5.0); Alkaline Phosphatase 120 U/L (39-117); Anion Gap 13 (12-20); Aspartate Amino Transferase 17 U/L (5-37); Bilirubin Direct 0.4 mg/dL (0.0-0.5); Blood Urea Nitrogen 17 mg/dL (9-16); Calcium 9.1 mg/dL (8.4-10.2); Carbon Dioxide 27 mmol/L (22-29); Chloride 106 mmol/L (96-108); Creatinine Clr Calc Pharmacy 102.6; Estimated Glomerular Filt Rate > 60; Glucose Random 115 mg/dL (60-115); Magnesium 1.7 mg/dL (1.6-2.6); Potassium 3.8 mmol/L (3.3-5.1); Sodium 142 mmol/L (135-145)
--- NOTE | 2020-07-06 17:51 | PC.NURSE ---
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
--- NOTE | 2020-07-06 18:55 | P.CNUR_ITS ---
History of Present Illness Consult details Consult date: 07/06/20 Narrative: Patient seen in emergency room Has been unable to void Presented with urinary retention Prior catheterization in hospital unsuccessful Does report distant history of prostate procedure Attempts to pass wire unsuccessful Cystoscopy showed stricture with small ventral opening Wire placed through ventral opening [address] [place] open-ended ureteric catheter placed over wire Urine obtained on aspiration Urethral dilator set used to dilate to [address] [place] tip catheter placed with good urine efflux Can follow-up in 3-4 weeks in office for assessment PMFSH Past Medical History Medical History Anxiety Depression HTN (hypertension) Social History Social History Alcohol intake: never Smoking Status: Never smoker Use of substances other than those prescribed or required for medical reasons: No Advance Directives: Yes Advance Directives on File: Yes Advance Directives Date on File: 04/26/20 Meds Allergies Allergy/AdvReac Type Severity Reaction Status Date / Time No Known Allergies Allergy Verified 04/02/20 15:54 Home Medications Medication Instructions Recorded Confirmed Last Taken Type oxybutynin chloride 10 mg PO DAILY 04/02/20 04/26/20 Unknown History Saccharomyces boulardii 250 mg PO BID 04/26/20 04/26/20 Unknown History acetaminophen 650 mg PO Q4H PRN 04/26/20 04/26/20 Unknown History alprazolam [Xanax] 0.25 mg PO DAILY 04/26/20 04/26/20 Unknown History amlodipine 5 mg PO DAILY 04/26/20 04/26/20 Unknown History bisacodyl [Dulcolax (bisacodyl)] 10 mg HI DAILY PRN 04/26/20 04/26/20 Unknown History bupropion HCl 150 mg PO BID 04/26/20 04/26/20 Unknown History cholecalciferol (vitamin D3) 125 mcg PO Q7D 04/26/20 04/26/20 04/20/20 History [Vitamin D3] ciprofloxacin HCl [Cipro] 250 mg PO BID 04/26/20 04/26/20 Unknown History citalopram 20 mg PO DAILY 04/26/20 04/26/20 Unknown History clonidine 1 patch TRANSDERMAL QWEEK 04/26/20 04/26/20 Unknown History cyanocobalamin (vitamin B-12) 1,000 mcg IM Q7D 04/26/20 04/26/20 Unknown History gabapentin 300 mg PO BID 04/26/20 04/26/20 Unknown History losartan 100 mg PO DAILY 04/26/20 04/26/20 Unknown History magnesium hydroxide [Milk of 30 ml PO BEDTIME PRN 04/26/20 04/26/20 Unknown History Magnesia] olanzapine 2.5 mg PO BEDTIME 04/26/20 04/26/20 Unknown History oxycodone 5 mg PO Q3H PRN 04/26/20 04/26/20 Unknown History oxycodone 5 mg PO Q6H PRN 04/26/20 04/26/20 Unknown History peg 177-wkobrwbdhwry-olczsede 1 drp OPHTHALMIC (EYE) BID 04/26/20 04/26/20 Unknown History [Artificial Tears(ow-pede-ceif)] polyethylene glycol 3350 17 g PO DAILY 04/26/20 04/26/20 Unknown History propranolol 80 mg PO BID 04/26/20 04/26/20 Unknown History sennosides [senna] 17.2 mg PO BEDTIME 04/26/20 04/26/20 Unknown History Physical Exam Vital Signs: Vital Signs: Last Vital Signs Temp 97.8 F 07/06/20 17:49 Pulse 62 07/06/20 17:49 Resp 18 07/06/20 17:49 BP 143/59 H 07/06/20 17:49 Pulse Ox 94 07/06/20 17:49 Body Mass Index 39.5 Const: General: cooperative, healthy appearing, comfortable and no acute distress Nutritional Appearance: average body habitus Orientation/consciousness: oriented to person, oriented to place and oriented to time Eyes: General: appearance normal, both eyes and all related structures Chest: Chest palpation & inspection: normal inspection of the chest Resp: Effort & Inspection: normal respiratory effort Cardio: Rate: regular rate GI: Inspection: Yes normal to inspection Skin: Hair: normal Neuro: General: oriented to person, oriented to place and oriented to time Extrem: General: Yes normal to inspection Results Labs Result diagrams: 07/06/20 17:15 07/06/20 17:15 Labs: Abnormal lab results 07/06/20 07/06/20 07/06/20 Range/Units 16:42 17:15 17:15 WBC 13.2 H (4.8-10.8) X10*3/uL RBC 4.23 L (4.60-5.80) X10*6/uL Hgb 13.9 L (14.0-18.0) g/dl Hct 39.7 L (42-52) % Neut % (Auto) 78.8 H (45-73) % Lymph % (Auto) 11.8 L (20-40) % Abs Immat Gran (auto) 0.05 H (0.00-0.03) X10*3/uL Absolute Neuts (auto) 10.4 H (2.0-8.3) X10*3/uL BUN 17 H (9-16) mg/dL Alkaline Phosphatase 120 H (39-117) U/L Total Protein 6.0 L (6.5-8.0) g/dL Urine Protein 1+ H (NEG-TRACE) MG/DL Urine Blood 3+ H (NEG) Ur Leukocyte Esterase 1+ H (NEG) Urine RBC 15-29 H (0) /HPF Short CBC 07/06/20 Range/Units 17:15 WBC 13.2 H (4.8-10.8) X10*3/uL Hgb 13.9 L (14.0-18.0) g/dl Hct 39.7 L (42-52) % Plt Count 223 (160-400) X10*3/uL BMP 07/06/20 17:15 Sodium 142 Potassium 3.8 Chloride 106 Carbon Dioxide 27 BUN 17 H Creatinine 0.90 Calcium 9.1 Liver Function 07/06/20 Range/Units 17:15 Total Bilirubin 1.0 (0.0-1.0) mg/dL Direct Bilirubin 0.4 (0.0-0.5) mg/dL AST 17 D (5-37) U/L ALT 19 (0-40) U/L Alkaline Phosphatase 120 H (39-117) U/L Albumin 3.8 (3.5-5.0) g/dL Urine 07/06/20 Range/Units 16:42 Urine Color YELLOW Urine Appearance CLEAR Urine pH 6.0 (5.0-8.0) Ur Specific [place] 1.020 (1.005-1.025) Urine Protein 1+ H (NEG-TRACE) MG/DL Urine Glucose (UA) NEG (NEG) MG/DL All other labs normal. Assessment and Plan (1) Acute urinary retention: Status: Acute (2) Urethral stricture: Status: Acute Cystoscopy with dilatation in emergency room Difficult Heranndez catheter placement Procedures Date of Service Date of Service: 07/06/20 Catheter Insertion (Urinary) Replacement of catheter present on admission: No Reason for placing: Acute urinary retention (Cystoscopy performed at bedside, urethral dilatation performed bedside.) Bladder scan/ultrasound used before catheterization: Yes Estimated amount of urine (mLs): 700 Antiseptic solution prep: Povidone-Iodine Topical anesthesia used: Yes Catheter type/location: 2-way Urethral Size ([place]): 16 Catheter balloon size (mL): 10
[2020-07-06] MEDS: Lidocaine HCl 2 % Urojet 10 ML JEL.PF.APP TOPICAL (19:05)
[2020-07-06 20:32] LABS: COVID-19 Test Negative (Negative)
--- NOTE | 2020-07-06 21:43 | PC.NURSE ---
PHARMACY CALLED FOR MEDICATIONS
[2020-07-06] MEDS: Acetaminophen 325 MG TABLET 650 MG PO (21:52)
[2020-07-06] MEDS: Gabapentin 300 MG CAPSULE PO (21:52)
[2020-07-06] MEDS: busPIRone HCl 10 MG TABLET PO (21:53)
[2020-07-06] MEDS: Propranolol HCL LA 80 MG CAP.SA.24H PO (21:53)
--- NOTE | 2020-07-06 22:14 | MHC.CM.ED ---
CM met with pt who states he just left [facility] and moved into new apartment. States he has nursing, [facility] and PT services at home, but cannot remember what company. Requests that CM call his /HCP Carla Arciniega ([phone]) for details. Pt lives alone, uses a walker and has services. States his family transports him to doctor visits and [employer] does his care and shopping/house keeping. Pt has Moderna Vaccinations x 2. Pt aware that F/C will need to stay in for 3-4 weeks and he will f/u with Dr. Hamilton. Will need to make an appointment with him or F/U with [facility]. CM spoke with Carla Arciniega, who tells CM they are , but do not live together. She is his HCP and it is on file. Home services are provided by [employer] ([phone]). Pt has [facility] [employer] 9-2 daily, senior living BID, and PT at home. Carla aware that pt will stay overnight in ED and d/c in the am home once ongoing services can be arranged. CM spoke with commissions coordinator at [employer] that verified pt services and requested the d/c summary and F2F. [facility] is in [employer]. Return referrral placed to [employer] [facility]. Clinicals, HCP and F2F uploaded. Pt receives his healthcare at [facility] with Dr. Drake Garcia. Pt. aware of POC. Cm to follow for d/c needs.
[2020-07-06] MEDS: cloNIDine 0.2 MG PATCH.TDWK TRANSDERMA (22:43)
[2020-07-07] VITALS: PULSE 80; RESP 15
[2020-07-07 02:00] VITALS: BP 164/72; PULSE 71; RESP 18; TEMP 37.1; O2SAT 95
[2020-07-07 04:00] VITALS: RESP 15
[2020-07-07 06:00] VITALS: BP 177/79; PULSE 58; RESP 15; O2SAT 96
[2020-07-07 09:20] VITALS: BP 132/41; PULSE 60; RESP 16; O2SAT 93
[2020-07-07 09:58] VITALS: BP 146/61; PULSE 58
[2020-07-07] MEDS: Propranolol HCL LA 80 MG CAP.SA.24H PO (09:58)
[2020-07-07] MEDS: amLODIPine Besylate 5 MG TABLET PO (09:58)
[2020-07-07] MEDS: Losartan Potassium 50 MG TABLET 100 MG PO (09:58)
[2020-07-07] MEDS: busPIRone HCl 10 MG TABLET PO (09:59)
[2020-07-07] MEDS: Furosemide 20 MG TABLET PO (09:59)
[2020-07-07] MEDS: Escitalopram Oxalate 10 MG TABLET PO (09:59)
[2020-07-07] MEDS: Gabapentin 300 MG CAPSULE PO (09:59)
--- NOTE | 2020-07-07 13:45 | MHC.CM.ED ---
Patient remains in ER. Physical therapy eval completed. Short term rehab is recommended. Spoke with patient's /HCP Carla. Carla feels short term rehab is not necessary and patient can safely return home. Patient's son can transport her home. He will be here at 2pm. Patient, Tony CARVALHO and Asim LAURENT aware. Continue to monitor for d/c needs.
== END 2020-07-07 16:21 | disposition home or self-care (01) ==
PROVIDERS: Nurse Practitioner Family; Emergency Provider Emergency Medicine Emergency Medical Services
DX: N35.919 Unspecified urethral stricture, male, unspecified site (principal); R33.8 Other retention of urine; N39.0 Urinary tract infection, site not specified; K59.00 Constipation, unspecified; L89.313 Pressure ulcer of right buttock, stage 3; I10 Essential (primary) hypertension; Z20.822 Contact with and (suspected) exposure to COVID-19
CPT/HCPCS: 36415; 51798; 74018; 80048; 80076; 81001; 81003; 83605; 83735; 85025; 87040; 87086; 87635; 96365; 97162; 99285; J0696

== ENCOUNTER → 2020-08-02 12:43 | Outpatient (BNVA) | payer OTHER, MEDICARE, SELFPAY | PROVIDERS: Visit Provider Urology | DX: R33.8 Other retention of urine (principal) | CPT/HCPCS: 51700; 51705; 99212 ==

== ENCOUNTER 2020-08-10 21:20 | Emergency (ER) | payer OTHER, MEDICARE, SELFPAY ==
[2020-08-10 21:27] VITALS: BP 146/71; PULSE 71; RESP 16; TEMP 37.3; O2SAT 94; BMI 39.5
--- NOTE | 2020-08-10 23:24 | ED.MALEGU ---
HPI - Male Genitourinary General Chief complaint: Urogenital-Male Stated complaint: cath issues Time Seen by Provider: 08/10/20 23:17 Source: patient Mode of arrival: ambulatory Limitations: no limitations History of Present Illness HPI Narrative: Patient comes emergency room complaining of Hernandez catheter becoming dislodged. Patient states earlier this evening, patient was cleaning his back, and noticed that his Hernandez was dripping urine from the urethra. Patient states that he did not pull the Hernandez, has not seen any blood coming from the urethra or blood collecting in the bag. Patient uses a chronic Hernandez for urinary retention. Related Data Home Medications Medication Instructions Recorded Confirmed alprazolam [Xanax] 0.25 mg PO TID PRN 04/26/20 07/06/20 amlodipine 5 mg PO DAILY 04/26/20 07/06/20 citalopram 20 mg PO DAILY 04/26/20 07/06/20 clonidine 1 patch TRANSDERMAL QWEEK 04/26/20 07/06/20 gabapentin 300 mg PO BID 04/26/20 07/06/20 losartan 100 mg PO DAILY 04/26/20 07/06/20 buspirone 10 mg PO BID 07/06/20 07/06/20 furosemide [Lasix] 20 mg PO DAILY 07/06/20 07/06/20 oxybutynin chloride 15 mg PO DAILY 07/06/20 07/06/20 propranolol [Inderal LA] 80 mg PO BID 07/06/20 07/06/20 Previous Rx's Medication Instructions Recorded cefuroxime axetil 500 mg PO Q12H #20 tab 07/07/20 finasteride 5 mg tablet 5 mg PO DAILY 90 Days #90 tab 08/02/20 tamsulosin 0.4 mg capsule 0.4 mg PO BEDTIME 90 Days #90 cap 08/02/20 Allergies Allergy/AdvReac Type Severity Reaction Status Date / Time No Known Allergies Allergy Verified 08/10/20 21:34 Review of Systems Review of Systems: Constitutional : No Weight loss, No Fever, No Chills, No Night Sweats, No Fatigue, No Malaise ENT/Mouth : No Hearing loss, No Ear Pain, No Nasal Congestion, No Sinus Pain, No Hoarseness, No sore throat, No Rhinorrhea, No Swallowing Difficulty Eyes: No Eye Pain, No Swelling, No Redness, No Foreign Body, No Discharge, No Vision Changes Cardiovascular : No Chest Pain, No SOB, No Dyspnea on Exertion, No Orthopnea, No Edema, No Palpitations Respiratory : No Cough, No Sputum, No Wheezing, No Smoke Exposure, No Dyspnea Gastrointestinal : No Nausea, No Vomiting, No Diarrhea, No Constipation, No abdominal Pain, No Hematochezia, No Melena Genitourinary : Hernandez catheter became dislodged, No Dysuria, No Urinary Frequency, No Hematuria, No Urinary Incontinence, No Urgency, No Flank Pain, No Urinary Flow Changes, No Hesitancy Musculoskeletal : No joint pain, No Myalgias, No Joint Swelling Skin : No Skin Lesions, No rash Neuro : No Weakness, No Numbness, No Paresthesias, No Loss of Consciousness, No Dizziness, No Headache Psych : No Anxiety/Panic, No Depression, No SI/HI/AH/VH, No Social Issues, Heme/Lymph: No Bruising, No Bleeding,No Lymphadenopathy Endocrine : No Polyuria, No Polydipsia, No Temperature Intolerance [facility] Past Medical History Medical History Anxiety Bipolar disorder Depression HTN (hypertension) Hypertrophic cardiomyopathy AGUEDA (obstructive sleep apnea) PTSD (post-traumatic stress disorder) Social History Social History Alcohol intake: never Advance Directives: No Advance Directives Information Provided: No Advance Directives Date on File: 04/26/20 Physical Exam Vital Signs: Vital Signs: Last Vital Signs Temp 99.2 F 08/10/20 21: Pulse 71 08/10/20 21:27 Resp 16 08/10/20 21: BP 146/71 H 08/10/20 21: Pulse Ox 94 08/10/20 21:27 Body Mass Index 39.5 Appearance: Alert. Oriented X3. No acute distress. Eyes: Pupils equal, round and reactive to light. ENT: Pharynx normal. Neck: Normal inspection. Neck supple. No lymph nodes noted. No crepitus CVS: Normal heart rate and rhythm. Pulses normal. Normal S1 and S2 Respiratory: No respiratory distress. Breath sounds normal. No Wheezing. No rales Abdomen: Soft and nontender. No rigidity. No distention. : Dislodged Hernandez catheter Skin: Skin warm and dry. Normal skin color. Normal skin turgor. Extremities: No lower extremity edema. No lower extremity edema. No Lacerations. No Rash Neuro: Oriented X 3. No motor deficit. No sensory deficit. Moving all extermities. No slurred speech. Course Course Course Narrative: Patient's Hernandez catheter was replaced with a new 18 Nepali catheter. Patient tolerated well the procedure. Discharge Plan Discharge Clinical Impression: Dislodged Hernandez catheter Qualifiers: Encounter type: initial encounter Qualified Code(s): T83.021A - Displacement of indwelling urethral catheter, initial encounter Patient Disposition: Home, Self-Care Instructions: Hernandez Catheter Placement and Care (ED) Additional Instructions: Please follow-up with your urologist as scheduled. Please follow-up with your primary care physician tomorrow. If you have any worsening or new symptoms, please return to the emergency room or call 911 Prescriptions: No Action amlodipine 5 mg Tablet 5 mg PO DAILY RF: 0 alprazolam [Xanax] 0.25 mg tablet 0.25 mg PO TID PRN (Reason: Anxiety) RF: 0 clonidine 0.2 mg/24 hr Patch Weekly 1 patch TRANSDERMAL QWEEK RF: 0 citalopram 20 mg Tablet 20 mg PO DAILY RF: 0 gabapentin 300 mg Capsule 300 mg PO BID RF: 0 losartan 100 mg Tablet 100 mg PO DAILY RF: 0 oxybutynin chloride 15 mg Tablet Extended Release 24 Hr 15 mg PO DAILY RF: 0 buspirone 10 mg Tablet 10 mg PO BID RF: 0 propranolol [Inderal LA] 80 mg Capsule,Extended Release 24 Hr 80 mg PO BID RF: 0 furosemide [Lasix] 20 mg Tablet 20 mg PO DAILY RF: 0 cefuroxime axetil 250 mg tablet 500 mg PO Q12H Qty: 20 RF: 0 finasteride 5 mg tablet 5 mg PO DAILY 90 Days Qty: 90 RF: 1 tamsulosin 0.4 mg capsule 0.4 mg PO BEDTIME 90 Days Qty: 90 RF: 1
[2020-08-11 00:10] VITALS: BP 137/72; PULSE 81; RESP 16; TEMP 37.2; O2SAT 96
== END 2020-08-11 00:11 | disposition home or self-care (01) ==
PROVIDERS: Emergency Provider Emergency Medicine
DX: T83.021A Displacement of indwelling urethral catheter, initial encounter (principal); R33.9 Retention of urine, unspecified; I10 Essential (primary) hypertension; Z79.899 Other long term (current) drug therapy
CPT/HCPCS: 51702; 99283; 99284

== ENCOUNTER 2020-08-14 14:52 | Emergency (ER) | payer OTHER, MEDICARE, SELFPAY ==
[2020-08-14 15:41] VITALS: BP 138/65; PULSE 61; RESP 19; TEMP 36.7; BMI 40.6
--- NOTE | 2020-08-14 20:39 | ED.MALEGU ---
HPI - Male Genitourinary General Chief complaint: Urogenital-Male Stated complaint: Catheter leaking Time Seen by Provider: 08/14/20 20:39 Source: patient Mode of arrival: ambulatory Limitations: no limitations History of Present Illness HPI Narrative: patient with benign prostate enlargement status post Hernandez catheter for last 1 month has been replaced 3 times for leaking urine last one was 1 week ago still patient complaining of leaking urine around the Hernandez catheter sent by urologist for replacement of Hernandez catheter with a larger size. Related Data Home Medications Medication Instructions Recorded Confirmed alprazolam [Xanax] 0.25 mg PO TID PRN 04/26/20 07/06/20 amlodipine 5 mg PO DAILY 04/26/20 07/06/20 citalopram 20 mg PO DAILY 04/26/20 07/06/20 clonidine 1 patch TRANSDERMAL QWEEK 04/26/20 07/06/20 gabapentin 300 mg PO BID 04/26/20 07/06/20 losartan 100 mg PO DAILY 04/26/20 07/06/20 buspirone 10 mg PO BID 07/06/20 07/06/20 furosemide [Lasix] 20 mg PO DAILY 07/06/20 07/06/20 oxybutynin chloride 15 mg PO DAILY 07/06/20 07/06/20 propranolol [Inderal LA] 80 mg PO BID 07/06/20 07/06/20 Previous Rx's Medication Instructions Recorded cefuroxime axetil 500 mg PO Q12H #20 tab 07/07/20 finasteride 5 mg tablet 5 mg PO DAILY 90 Days #90 tab 08/02/20 tamsulosin 0.4 mg capsule 0.4 mg PO BEDTIME 90 Days #90 cap 08/02/20 cefpodoxime 200 mg PO BID #20 tab 08/14/20 Allergies Allergy/AdvReac Type Severity Reaction Status Date / Time No Known Allergies Allergy Verified 08/14/20 15:41 Review of Systems Review of Systems: Yes all other systems are reviewed and are negative [facility] Past Medical History Medical History Anxiety Bipolar disorder Depression HTN (hypertension) Hypertrophic cardiomyopathy AGUEDA (obstructive sleep apnea) PTSD (post-traumatic stress disorder) Social History Social History Alcohol intake: never Advance Directives: Yes Advance Directives on File: Yes Advance Directives Date on File: 04/26/20 Physical Exam Vital Signs: Vital Signs: Last Vital Signs Temp 98.9 F 08/14/20 21:41 Pulse 59 08/14/20 21:41 Resp 18 08/14/20 21:41 BP 179/71 H 08/14/20 21:41 Pulse Ox 97 08/14/20 21:41 Body Mass Index 40.6 Const: General: healthy appearing and no acute distress HENMT: Head: Yes normocephalic Eyes: General: appearance normal, both eyes and all related structures Resp: Effort & Inspection: normal respiratory effort Auscultation: clear to auscultation bilaterally Cardio: Palpation: normal PMI Rate: regular rate Rhythm: regular rhythm GI: Inspection: Yes normal to inspection Palpation (GI): Soft to palpation and nontender : Other: Hernandez catheter and place no leakage noticed around the catheter catheter draining well bladder scan showed 0 urine but patient insisted that it was leaking earlier MDM - Male Genitourinary MDM Narrative Medical decision making narrative: Hernandez catheter replaced with 20 Vietnamese Hernandez catheter, UA showed UTI with give him cefpodoxime advised to follow-up with urologist Lab Data Labs: Lab Results 08/14/20 Range/Units 21:42 Urine Color YELLOW Urine Appearance CLEAR Urine pH 6.0 (5.0-8.0) Ur Specific [place] >= 1.030 H (1.005-1.025) Urine Protein 2+ H (NEG-TRACE) MG/DL Urine Glucose (UA) NEG (NEG) MG/DL Urine Ketones NEG (NEG) MG/DL Urine Blood 3+ H (NEG) Urine Nitrite POS H (NEG) Ur Leukocyte Esterase 1+ H (NEG) Urine RBC 5-9 H (0) /HPF Urine WBC 10-14 H (0-4) /HPF Ur Squamous Epith Cells TRACE /LPF Calcium Oxalate Crystal 1+ /LPF Urine Bacteria 2+ /LPF Urine Mucus TRACE /LPF Discharge Plan Discharge Clinical Impression: Urinary tract infection, Complication of Hernandez catheter Patient Disposition: Home, Self-Care Instructions: Catheter-associated Urinary Tract Infection (ED) Additional Instructions: drink plenty of fluids Hernandez catheter care as advised take antibiotic as prescribed Prescriptions: New cefpodoxime 200 mg tablet 200 mg PO BID Qty: 20 RF: 0 No Action amlodipine 5 mg Tablet 5 mg PO DAILY RF: 0 alprazolam [Xanax] 0.25 mg tablet 0.25 mg PO TID PRN (Reason: Anxiety) RF: 0 clonidine 0.2 mg/24 hr Patch Weekly 1 patch TRANSDERMAL QWEEK RF: 0 citalopram 20 mg Tablet 20 mg PO DAILY RF: 0 gabapentin 300 mg Capsule 300 mg PO BID RF: 0 losartan 100 mg Tablet 100 mg PO DAILY RF: 0 oxybutynin chloride 15 mg Tablet Extended Release 24 Hr 15 mg PO DAILY RF: 0 buspirone 10 mg Tablet 10 mg PO BID RF: 0 propranolol [Inderal LA] 80 mg Capsule,Extended Release 24 Hr 80 mg PO BID RF: 0 furosemide [Lasix] 20 mg Tablet 20 mg PO DAILY RF: 0 cefuroxime axetil 250 mg tablet 500 mg PO Q12H Qty: 20 RF: 0 finasteride 5 mg tablet 5 mg PO DAILY 90 Days Qty: 90 RF: 1 tamsulosin 0.4 mg capsule 0.4 mg PO BEDTIME 90 Days Qty: 90 RF: 1 Interventions: ED Discharge Assessment Last Done: 08/14/20 22:34 Discharge Date/Time: 08/14/20 22:36
[2020-08-14 21:41] VITALS: BP 179/71; PULSE 59; RESP 18; TEMP 37.2; O2SAT 97
[2020-08-14 21:51] LABS: Glucose Urine UA NEG (NEG); Leukocyte Esterase Urine 1+ (NEG); Nitrite Urine POS (NEG); Specific Gravity - Urine >= 1.030 (1.005-1.025); UACC Culture Trigger YES; Urine Blood 3+ (NEG); Urine Ketones NEG (NEG); Urine Protein 2+ MG/DL (NEG-TRACE)
[2020-08-14 21:52] LABS: Appearance Urine CLEAR; Color Urine YELLOW
[2020-08-14 22:14] LABS: Bacteria Urine 2+ /LPF; Calcium Oxalate Crystals Urine 1+ /LPF; Mucus Urine TRACE /LPF; Squamous Epithelial Cell Urine TRACE /LPF
== END 2020-08-14 22:36 | disposition home or self-care (01) ==
PROVIDERS: Emergency Provider Internal Medicine
DX: T83.031A Leakage of indwelling urethral catheter, initial encounter (principal); N39.0 Urinary tract infection, site not specified; Y84.6 Urinary catheterization as the cause of abnormal reaction of the patient, or of later complication, without mention of misadventure at the time of the procedure; Y92.9 Unspecified place or not applicable
CPT/HCPCS: 51702; 51798; 81001; 81003; 87086; 87147; 87186; 99284

== ENCOUNTER 2020-09-04 10:14 | Emergency (ER) | payer OTHER, MEDICARE, SELFPAY ==
[2020-09-04 10:27] VITALS: BP 156/94; PULSE 65; RESP 18; TEMP 36.8; O2SAT 97; BMI 30.2
--- NOTE | 2020-09-04 11:13 | ED_ITS ---
HPI - Male Genitourinary General Chief complaint: Urogenital-Female Stated complaint: catheter problems Time Seen by Provider: 09/04/20 11:03 Source: patient Mode of arrival: ambulatory Limitations: no limitations History of Present Illness Complaint: dysuria Onset (ago): day(s) (today) Duration: constant Location: penis Radiation: penis Severity: mild Relieving factors: none Context: indwelling catheter Associated symptoms: Reports denies other symptoms Related Data Home Medications Medication Instructions Recorded Confirmed alprazolam [Xanax] 0.25 mg PO TID PRN 04/26/20 07/06/20 amlodipine 5 mg PO DAILY 04/26/20 07/06/20 citalopram 20 mg PO DAILY 04/26/20 07/06/20 clonidine 1 patch TRANSDERMAL QWEEK 04/26/20 07/06/20 gabapentin 300 mg PO BID 04/26/20 07/06/20 losartan 100 mg PO DAILY 04/26/20 07/06/20 buspirone 10 mg PO BID 07/06/20 07/06/20 furosemide [Lasix] 20 mg PO DAILY 07/06/20 07/06/20 oxybutynin chloride 15 mg PO DAILY 07/06/20 07/06/20 propranolol [Inderal LA] 80 mg PO BID 07/06/20 07/06/20 Previous Rx's Medication Instructions Recorded cefuroxime axetil 500 mg PO Q12H #20 tab 07/07/20 finasteride 5 mg tablet 5 mg PO DAILY 90 Days #90 tab 08/02/20 tamsulosin 0.4 mg capsule 0.4 mg PO BEDTIME 90 Days #90 cap 08/02/20 cefpodoxime 200 mg PO BID #20 tab 08/14/20 Allergies Allergy/AdvReac Type Severity Reaction Status Date / Time No Known Allergies Allergy Verified 08/14/20 15:41 Review of Systems Review of Systems: Constitutional : No Fever, No Chills ENT/Mouth : No sore throat, No Rhinorrhea Eyes: No Eye Pain, No Swelling, No Redness Cardiovascular : No Chest Pain, No SOB Respiratory : No Cough, No Sputum, No Wheezing Gastrointestinal : No Nausea, No Vomiting, No Diarrhea Genitourinary : no hematuria, pos leaking around cath Musculoskeletal : No joint pain, No Myalgias, No Joint Swelling Skin : No Skin Lesions, No rash Neuro : No Weakness, No Numbness, No Dizziness, No Headache All other systems reviewed and are negative [facility] Past Medical History Attestation statement: The following information was validated with the patient. Medical History Anxiety Bipolar disorder Depression HTN (hypertension) Hypertrophic cardiomyopathy AGUEDA (obstructive sleep apnea) PTSD (post-traumatic stress disorder) Social History Social History Alcohol intake: never Advance Directives: Yes Advance Directives on File: Yes Advance Directives Date on File: 04/26/20 Physical Exam Vital Signs: Vital Signs: Last Vital Signs Temp 98.2 F 09/04/20 10:27 Pulse 65 09/04/20 10:27 Resp 18 09/04/20 10:27 BP 156/94 H 09/04/20 10:27 Pulse Ox 97 09/04/20 10:27 Body Mass Index 30.2 Appearance: Alert. Oriented X3. No acute distress. Eyes: Pupils equal, round and reactive to light. ENT: Pharynx normal. Neck: Normal inspection. Neck supple. CVS: Normal heart rate and rhythm. Pulses normal. Respiratory: No respiratory distress. Breath sounds normal. Abdomen: Soft and nontender. Obese : clear yellow flowing urine in bag Skin: Skin warm and dry. Normal skin color. Normal skin turgor. Extremities: trace pitting lower extremity edema. No calf ttp Neuro: Oriented X 3. No motor deficit. No sensory deficit. MDM - Male Genitourinary MDM Narrative Medical decision making narrative: 74 yo male with recent cath change wrong size so it was leaking around the cath and he came to ED to have it changed, denies any pain since change, clear yellow flowing urine, patient states he is much better and wants to go home, stable for DC at this time Discharge Plan Discharge Clinical Impression: Encounter for Hernandez catheter replacement Patient Disposition: Home, Self-Care Instructions: Hernandez Catheter Placement and Care (ED) Additional Instructions: return to ED for any worsening symptoms or concerns Prescriptions: No Action cefpodoxime 200 mg tablet 200 mg PO BID Qty: 20 RF: 0 amlodipine 5 mg Tablet 5 mg PO DAILY RF: 0 alprazolam [Xanax] 0.25 mg tablet 0.25 mg PO TID PRN (Reason: Anxiety) RF: 0 clonidine 0.2 mg/24 hr Patch Weekly 1 patch TRANSDERMAL QWEEK RF: 0 citalopram 20 mg Tablet 20 mg PO DAILY RF: 0 gabapentin 300 mg Capsule 300 mg PO BID RF: 0 losartan 100 mg Tablet 100 mg PO DAILY RF: 0 oxybutynin chloride 15 mg Tablet Extended Release 24 Hr 15 mg PO DAILY RF: 0 buspirone 10 mg Tablet 10 mg PO BID RF: 0 propranolol [Inderal LA] 80 mg Capsule,Extended Release 24 Hr 80 mg PO BID RF: 0 furosemide [Lasix] 20 mg Tablet 20 mg PO DAILY RF: 0 cefuroxime axetil 250 mg tablet 500 mg PO Q12H Qty: 20 RF: 0 finasteride 5 mg tablet 5 mg PO DAILY 90 Days Qty: 90 RF: 1 tamsulosin 0.4 mg capsule 0.4 mg PO BEDTIME 90 Days Qty: 90 RF: 1
== END 2020-09-04 11:54 | disposition home or self-care (01) ==
PROVIDERS: Emergency Provider Emergency Medicine
DX: T83.031A Leakage of indwelling urethral catheter, initial encounter (principal); I10 Essential (primary) hypertension; Z79.899 Other long term (current) drug therapy
CPT/HCPCS: 51702; 99283; 99284

== ENCOUNTER → 2020-09-14 13:59 | Outpatient (BNVA) | payer OTHER, MEDICARE, SELFPAY | PROVIDERS: Visit Provider Urology | DX: R33.8 Other retention of urine (principal); N35.919 Unspecified urethral stricture, male, unspecified site; I10 Essential (primary) hypertension; F41.8 Other specified anxiety disorders | CPT/HCPCS: 51700; 99212 ==

== ENCOUNTER 2020-09-18 11:56 | Inpatient (IN) | payer OTHER, MEDICARE, SELFPAY ==
[2020-09-18] VITALS (7 sets, daily range): BP systolic 123–199; BP diastolic 50–89; PULSE 62–95; RESP 16–20; TEMP 36.6–37.1; O2SAT 92–96; BMI 38.0
--- NOTE | ~2020-09-18 | CT_ITS ---
EXAMINATION: CT CT BRAIN, CT CERVICAL SPINE WITHOUT CONTRAST. CT CHEST, ABDOMEN AND PELVIS WITHOUT CONTRAST., CLINICAL INFORMATION: Fall, neck pain. COMPARISON: CT brain 04/26/2020. CT abdomen pelvis 04/04/2020. TECHNIQUE: 5 mm thin axial and reformatted 2 mm thin sagittal and coronal images of brain were obtained. 3 mm thin and reformatted 2 mm thin sagittal and coronal images of cervical spine were obtained. 5 mm thin axial and reformatted 3 mm thin images of chest, abdomen pelvis were obtained without contrast. DLP 1832. FINDINGS: BRAIN: There is no acute intra-axial, extra-axial bleed, masses or midline shift. Both lateral ventricles are symmetrical in size and configuration with mild enlargement. There is no acute infarct in evolution. There is mild periventricular hypodensity in both cerebral hemispheres suggestive of chronic small vessel ischemic changes. Bone windows reveal no calvarial abnormality. Bilateral paranasal sinuses and mastoid air cells are well-aerated. CERVICAL SPINE: There is mild straightening of cervical lordosis. The vertebral heights and alignment is normal. There is mild loss of C4-C5, C5-C6, C6-C7 and C7-T1 disc levels with mild ventral spondylosis. This calcification of posterior longitudinal ligament from C3 through C7 vertebra. The craniovertebral junction and the C1-C2 alignment is normal. There is mild superior spurring of the C1-C2 alignment. There is moderate right C3-C4 neuroforaminal narrowing from combination of uncovertebral hypertrophic changes posterior ligament calcification. The left neural foramina appears patent. Rest of disc levels are unremarkable. CHEST: The lungs are well-expanded and clear acute process except for minimal atelectatic changes right lung base. Minimal platelike atelectasis seen in the left lung base as well. Rest of lungs are clear. The heart size is enlarged. Pulmonary vascularity is within normal limits. There is minimal trace pericardial effusion. The great vessels are normal caliber. Thyroid lobes are symmetrical and normal. The central trachea and the bronchi widely patent. There is minimal right posterior pleural thickening. No effusion or pneumothorax. The axilla and chest wall appears unremarkable. ABDOMEN AND PELVIS: The liver is normal size, shape and contour. No focal lesion or intrahepatic ductal dilatation seen. The gallbladder is nondistended without any radiopaque calculi. Visualized spleen, pancreas and bilateral kidneys are unremarkable. There is an exophytic 1.6 cm midpole and 2.5 cm upper pole cyst right kidney. There is a 2 mm radiopaque calculi upper pole calyx right kidney. There is no hydronephrosis. Abdominal aorta is normal caliber. No retroperitoneal lymph nodes or mass seen. The abdominal wall appears unremarkable. The scattered stool and gas seen throughout the colon without any significant distention. No inflammatory process, free air or free fluid seen. Imaging through the pelvis reveals [id number] prostate enlargement extending into the base of bladder there is no free fluid. Bone windows reveal mild ventral spondylosis at L3-L4 disc level. Mild ventral spondylosis. CT/CT cervical spine wo con IMPRESSION: No acute intracranial process seen. Mild chronic small vessel microangiopathy. Mild prominence of lateral ventricles. There are degenerative disc changes of cervical spine without acute fracture or dislocation. No acute process seen in chest, abdomen or the pelvis.
--- NOTE | 2020-09-18 12:21 | ECG_ITS ---
Test Reason : FALL Blood Pressure : / mmHG Vent. Rate : 065 BPM Atrial Rate : 065 BPM P-R Int : 174 ms QRS Dur : 120 ms QT Int : 440 ms P-R-T Axes : 040 -38 076 degrees QTc Int : 457 ms Normal sinus rhythm Left axis deviation Incomplete left bundle branch block Nonspecific ST and T wave abnormality Abnormal ECG When compared with ECG of 26-APR-2020 11:35, Premature atrial complexes are no longer Present Incomplete left bundle branch block is now Present Referred By: Smiley Alonso Electronically Signed By:Jeramie Hunter
[2020-09-18] MEDS: 0.9 % Sodium Chloride 1,000 ML 999 ML IVCONT (12:58)
--- NOTE | 2020-09-18 13:17 | ED.FALL ---
HPI - Fall General Chief Complaint: Fall Stated Complaint: fall/back pain Time Seen by Provider: 09/18/20 12:12 Source: patient and EMS Mode of arrival: EMS History of Present Illness HPI Narrative: 74-year-old male with a past medical history of anxiety, bipolar, depression, HTN, hypertrophic cardiomyopathy, AGUEDA, PTSD, BIBA, c/o neck/back pain, left rib pain, lightheadedness and fall today and yesterday. 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 Also reports fall yesterday however does not remember exact incident. Denies headache, vision change, CP/SOB, nausea/vomiting, abdominal pain, room spinning dizziness, urinary incontinence/retention MD complaint: fall Related Data Home Medications Medication Instructions Recorded Confirmed alprazolam 0.25 mg tablet (Xanax) 0.25 mg PO TID PRN 04/26/20 09/18/20 amlodipine 5 mg tablet 5 mg PO DAILY 04/26/20 09/18/20 citalopram 20 mg tablet 20 mg PO DAILY 04/26/20 09/18/20 clonidine 0.2 mg/24 hr weekly 1 patch TRANSDERMAL QWEEK 04/26/20 09/18/20 transdermal patch gabapentin 300 mg capsule 300 mg PO BID 04/26/20 09/18/20 losartan 100 mg tablet 100 mg PO DAILY 04/26/20 09/18/20 buspirone 10 mg tablet 10 mg PO BID 07/06/20 09/18/20 furosemide 20 mg tablet (Lasix) 20 mg PO DAILY 07/06/20 09/18/20 oxybutynin chloride 15 mg 15 mg PO DAILY 07/06/20 09/18/20 tablet,extended release 24 hr propranolol 80 mg capsule,24 80 mg PO BID 07/06/20 09/18/20 hr,extended release (Inderal LA) Previous Rx's Medication Instructions Recorded finasteride 5 mg tablet 5 mg PO DAILY 90 Days #90 tab 08/02/20 tamsulosin 0.4 mg capsule 0.4 mg PO BEDTIME 90 Days #90 cap 08/02/20 Allergies Allergy/AdvReac Type Severity Reaction Status Date / Time No Known Allergies Allergy Verified 09/14/20 14:18 Review of Systems Review of Systems: Constitutional: No Fever, No Chills, No Fatigue, No Malaise ENT/Mouth: No Ear Pain, No Nasal Congestion, No sore throat, No Rhinorrhea Eyes: No Eye Pain, No Swelling, No Vision Changes Cardiovascular: No Chest Pain, +rib pain, No SOB, No Edema Respiratory: No Cough, No Sputum, No Dyspnea Gastrointestinal: No Nausea, No Vomiting, No Diarrhea, No Abdominal pain Genitourinary: No Dysuria, No Hematuria, No Urinary Incontinence/retention, No Urgency, No Flank Pain, No Urinary Flow Changes, No Hesitancy Musculoskeletal: + joint pain, + Myalgias, No Joint Swelling Skin: No Skin Lesions, No rash Neuro: No Weakness, No Numbness, No Paresthesias, No Loss of Consciousness, +lightheaded, No Headache Yes all other systems are reviewed and are negative Neurologic: Denies Abnormal speech present [facility] Past Medical History Attestation statement: The following information was validated with the patient. Medical History Anxiety Bipolar disorder Depression HTN (hypertension) Hypertrophic cardiomyopathy AGUEDA (obstructive sleep apnea) PTSD (post-traumatic stress disorder) Social History Social History Alcohol intake: never Advance Directives: Yes Advance Directives on File: Yes Advance Directives Date on File: 04/26/20 Physical Exam Vital Signs: Vital Signs: Last Vital Signs Temp 98.7 F 09/18/20 16:37 Pulse 85 09/18/20 16:37 Resp 18 09/18/20 16:37 BP 187/89 H 09/18/20 16:37 Pulse Ox 92 09/18/20 16:37 Body Mass Index 38.0 Const: General: cooperative and no acute distress Orientation/consciousness: patient oriented x3 Limitations: no limitations HENMT: Head: Yes normal to inspection and Yes atraumatic Ears: hearing grossly normal bilaterally General nose exam: Normal external nose present Face and sinus: Yes normal facial exam Eyes: General: appearance normal, both eyes and all related structures Pupils: Equal, round and reactive pupils present Neck: Other: C-collar in place. No midline cervical spinous tenderness/step-off. + bilateral paraspinal a mosquito tenderness Neck: Yes normal visual inspection Chest: Chest palpation & inspection: normal inspection of the chest, no crepitus and tenderness (Left-sided rib tenderness. No ecchymosis/erythema) Resp: Effort & Inspection: normal respiratory effort Auscultation: clear to auscultation bilaterally, no rales, no rhonchi and no wheezes Cardio: Rate: regular rate Heart sounds: S1 normal heart sound present and S2 normal heart sound present GI: Inspection: Yes normal to inspection Palpation (GI): Soft to palpation, nontender, no guarding and not rigid Back/Spine/Pelvis: Other: No midline thoracic/lumbar spinous tenderness/step-offss. + left-sided thoracic MSK tenderness Skin: Rashes: no rashes Wounds: no wounds Neuro: General: patient oriented x3, tone normal, moves all extremities, no focal motor deficits and CN's II-XI intact bilaterally Cranial nerves: Yes Equal, round and reactive pupils present Cognition (Neuro): normal cognition Speech: No Abnormal speech present Motor exam (neuro): 5/5 motor strength present throughout and Pronator motor function not present Extrem: General: Yes normal to inspection Course Course Course Narrative: -BMP WNL -1553--noted leukocytosis of 16.4, H&H stable >> no evidence infectious etiology at this time. Lactic/blood cultures ordered. Low concern for severe sepsis CT head/brain/cervical spine/chest/abdomen pelvis wo con IMPRESSION: No acute intracranial process seen. Mild chronic small vessel microangiopathy. Mild prominence of lateral ventricles. There are degenerative disc changes of cervical spine without acute fracture or dislocation. No acute process seen in chest, abdomen or the pelvis. -patient unable to perform orthostatic vital signs. Patient unable to give UA, will place Hernandez -UA infected > IV Ceftriaxone ordered. Plan for admission for further management MDM - Fall MDM Narrative Medical decision making narrative: 74-year-old male with a past medical history of anxiety, bipolar, depression, HTN, hypertrophic cardiomyopathy, AGUEDA, PTSD, BIBA, c/o neck/back pain, left rib pain, lightheadedness and fall today and yesterday. On exam vital signs stable, NAD, physical exam as above. Concern for metabolic vs infectious etiology vs IC pathology. R/o Fractures. Lower concern for CVA. Low concern for cauda equina/cord compression Plan: EKG, labs, UA, head/C-spine CT, CXR, orthostatics, PT/CM Consult Medical Records Attestation: I reviewed the patient's medical records. Lab Data Attestation: I reviewed the patient's lab results. Result diagrams: 09/18/20 15:42 09/18/20 13:09 Labs: Lab Results 09/18/20 09/18/20 09/18/20 Range/Units 13:09 13:09 13:09 WBC (4.8-10.8) X10*3/uL RBC (4.60-5.80) X10*6/uL Hgb (14.0-18.0) g/dl Hct (42-52) % MCV (80-98) fL MCH (27.0-33.0) pg MCHC (31.0-36.0) g/dl RDW (11.0-16.0) % Plt Count (160-400) X10*3/uL MPV (9.4-12.4) fL Immature Gran % (Auto) (0.0-0.4) % Neut % (Auto) (45-73) % Lymph % (Auto) (20-40) % [place] % (Auto) (2-11) % Eos % (Auto) (0-4) % Baso % (Auto) (0-2) % Lymph # (Auto) (1.2-4.9) X10*3/uL [place] # (Auto) (0.1-1.2) X10*3/uL Eos # (Auto) (0.0-0.4) X10*3/uL Baso # (Auto) (0.0-0.2) X10*3/uL Abs Immat Gran (auto) (0.00-0.03) X10*3/uL Absolute Neuts (auto) (2.0-8.3) X10*3/uL Absolute Nucleated RBC (0.0-0.012) X10*3/uL Nucleated RBC % (auto) (0.0-0.2) /100WBC Sodium 140 (135-145) mmol/L Potassium 4.5 (3.3-5.1) mmol/L Chloride 105 (96-108) mmol/L Carbon Dioxide 26 (22-29) mmol/L Anion Gap 14 (12-20) BUN 17 H (9-16) mg/dL Creatinine 0.86 (0.5-1.4) mg/dL Estim Creat Clear Calc 102.2 Estimated GFR > 60 Random Glucose 129 H (60-115) mg/dL Lactic Acid (0.5-2.0) mmol/L Calcium 9.5 (8.4-10.2) mg/dL Magnesium 1.8 (1.6-2.6) mg/dL Total Bilirubin 1.3 H (0.0-1.0) mg/dL Direct Bilirubin 0.4 (0.0-0.5) mg/dL AST 19 (5-37) U/L ALT 14 (0-40) U/L Alkaline Phosphatase 136 H (39-117) U/L Total Creatine Kinase 75 D (38-174) U/L Troponin I High Sens 10.8 (<3.5-35.0) ng/L B-Natriuretic Peptide 75 (<100) pg/mL Total Protein 6.2 L (6.5-8.0) g/dL Albumin 3.6 (3.5-5.0) g/dL Urine Color Urine Appearance Urine pH (5.0-8.0) Ur Specific [place] (1.005-1.025) Urine Protein (NEG-TRACE) MG/DL Urine Glucose (UA) (NEG) MG/DL Urine Ketones (NEG) MG/DL Urine Blood (NEG) Urine Nitrite (NEG) Ur Leukocyte Esterase (NEG) Urine RBC (0) /HPF Urine WBC (0-4) /HPF Ur Squamous Epith Cells /LPF Urine Bacteria /LPF Urine Mucus /LPF 09/18/20 09/18/20 09/18/20 Range/Units 15:42 16:34 16:57 WBC 16.4 H (4.8-10.8) X10*3/uL RBC 4.21 L (4.60-5.80) X10*6/uL Hgb 13.5 L (14.0-18.0) g/dl Hct 39.8 L (42-52) % MCV 94.5 (80-98) fL MCH 32.1 (27.0-33.0) pg MCHC 33.9 (31.0-36.0) g/dl RDW 13.2 (11.0-16.0) % Plt Count 222 (160-400) X10*3/uL MPV 10.5 (9.4-12.4) fL Immature Gran % (Auto) 0.4 (0.0-0.4) % Neut % (Auto) 83.3 H (45-73) % Lymph % (Auto) 6.9 L (20-40) % [place] % (Auto) 8.5 (2-11) % Eos % (Auto) 0.7 (0-4) % Baso % (Auto) 0.2 (0-2) % Lymph # (Auto) 1.1 L (1.2-4.9) X10*3/uL [place] # (Auto) 1.4 H (0.1-1.2) X10*3/uL Eos # (Auto) 0.1 (0.0-0.4) X10*3/uL Baso # (Auto) 0.0 (0.0-0.2) X10*3/uL Abs Immat Gran (auto) 0.07 H (0.00-0.03) X10*3/uL Absolute Neuts (auto) 13.7 H (2.0-8.3) X10*3/uL Absolute Nucleated RBC 0.000 (0.0-0.012) X10*3/uL Nucleated RBC % (auto) 0.0 (0.0-0.2) /100WBC Sodium (135-145) mmol/L Potassium (3.3-5.1) mmol/L Chloride (96-108) mmol/L Carbon Dioxide (22-29) mmol/L Anion Gap (12-20) BUN (9-16) mg/dL Creatinine (0.5-1.4) mg/dL Estim Creat Clear Calc Estimated GFR Random Glucose (60-115) mg/dL Lactic Acid 1.8 (0.5-2.0) mmol/L Calcium (8.4-10.2) mg/dL Magnesium (1.6-2.6) mg/dL Total Bilirubin (0.0-1.0) mg/dL Direct Bilirubin (0.0-0.5) mg/dL AST (5-37) U/L ALT (0-40) U/L Alkaline Phosphatase (39-117) U/L Total Creatine Kinase (38-174) U/L Troponin I High Sens (<3.5-35.0) ng/L B-Natriuretic Peptide (<100) pg/mL Total Protein (6.5-8.0) g/dL Albumin (3.5-5.0) g/dL Urine Color YELLOW Urine Appearance HAZY Urine pH 6.0 (5.0-8.0) Ur Specific [place] 1.025 (1.005-1.025) Urine Protein TRACE (NEG-TRACE) MG/DL Urine Glucose (UA) NEG (NEG) MG/DL Urine Ketones 15 (NEG) MG/DL Urine Blood 2+ H (NEG) Urine Nitrite POS H (NEG) Ur Leukocyte Esterase 3+ H (NEG) Urine RBC 5-9 H (0) /HPF Urine WBC 76-150 H (0-4) /HPF Ur Squamous Epith Cells TRACE /LPF Urine Bacteria 2+ /LPF Urine Mucus TRACE /LPF Discharge Plan Discharge Clinical Impression: Acute UTI, Acute urinary retention, Multiple falls Patient Disposition: Admitted As Inpatient Prescriptions: No Action amlodipine 5 mg Tablet 5 mg PO DAILY RF: 0 alprazolam [Xanax] 0.25 mg tablet 0.25 mg PO TID PRN (Reason: Anxiety) RF: 0 clonidine 0.2 mg/24 hr Patch Weekly 1 patch TRANSDERMAL QWEEK RF: 0 citalopram 20 mg Tablet 20 mg PO DAILY RF: 0 gabapentin 300 mg Capsule 300 mg PO BID RF: 0 losartan 100 mg Tablet 100 mg PO DAILY RF: 0 oxybutynin chloride 15 mg Tablet Extended Release 24 Hr 15 mg PO DAILY RF: 0 buspirone 10 mg Tablet 10 mg PO BID RF: 0 propranolol [Inderal LA] 80 mg Capsule,Extended Release 24 Hr 80 mg PO BID RF: 0 furosemide [Lasix] 20 mg Tablet 20 mg PO DAILY RF: 0 finasteride 5 mg tablet 5 mg PO DAILY 90 Days Qty: 90 RF: 1 tamsulosin 0.4 mg capsule 0.4 mg PO BEDTIME 90 Days Qty: 90 RF: 1
--- NOTE | 2020-09-18 13:23 | PHA.MEDREC ---
Pharmacy Consult ? Medication Reconciliation Pharmacy has completed the medication reconciliation.
[2020-09-18 13:44] LABS: B Type Natriuretic Peptide 75 pg/mL (<100); Troponin-I High Sensitivity 10.8 ng/L (<3.5-35.0)
[2020-09-18 13:56] LABS: Alanine Aminotransferase 14 U/L (0-40); Albumin Level 3.6 g/dL (3.5-5.0); Alkaline Phosphatase 136 U/L (39-117); Anion Gap 14 (12-20); Aspartate Amino Transferase 19 U/L (5-37); Bilirubin Direct 0.4 mg/dL (0.0-0.5); Bilirubin Total 1.3 mg/dL (0.0-1.0); Blood Urea Nitrogen 17 mg/dL (9-16); Calcium 9.5 mg/dL (8.4-10.2); Carbon Dioxide 26 mmol/L (22-29); Chloride 105 mmol/L (96-108); Creatinine Clr Calc Pharmacy 102.2; Estimated Glomerular Filt Rate > 60; Glucose Random 129 mg/dL (60-115); Magnesium 1.8 mg/dL (1.6-2.6); Potassium 4.5 mmol/L (3.3-5.1); Sodium 140 mmol/L (135-145); Total Protein 6.2 g/dL (6.5-8.0)
[2020-09-18] MEDS: ALPRAZolam 0.25 MG TABLET PO (14:35)
[2020-09-18] MEDS: Acetaminophen 325 MG TABLET 650 MG PO (14:35)
[2020-09-18 15:49] LABS: Basophils Percent Auto 0.2 % (0-2); Eosinophils Absolute Auto 0.1 X10*3/uL (0.0-0.4); Eosinophils Percent Auto 0.7 % (0-4); Hematocrit 39.8 % (42-52); Hemoglobin 13.5 g/dl (14.0-18.0); Imm Gran Abs Auto 0.07 X10*3/uL (0.00-0.03); Imm Gran Pct Auto 0.4 % (0.0-0.4); Lymphocytes Absolute Auto 1.1 X10*3/uL (1.2-4.9); Lymphocytes Percent Auto 6.9 % (20-40); Mean Corpuscular HGB Conc 33.9 g/dl (31.0-36.0); Mean Corpuscular Hemoglobin 32.1 pg (27.0-33.0); Mean Corpuscular Volume 94.5 fL (80-98); Mean Platelet Volume 10.5 fL (9.4-12.4); Monocytes Absolute Auto 1.4 X10*3/uL (0.1-1.2); Monocytes Percent Auto 8.5 % (2-11); Neutrophils Absolute Auto 13.7 X10*3/uL (2.0-8.3); Neutrophils Percent Auto 83.3 % (45-73); Platelet Count 222 X10*3/uL (160-400); Red Blood Count 4.21 X10*6/uL (4.60-5.80); Red Cell Distribution Width 13.2 % (11.0-16.0); White Blood Count 16.4 X10*3/uL (4.8-10.8)
--- NOTE | 2020-09-18 15:49 | PC.NURSE ---
pt feels like he is unable to do orthostatic bp
[2020-09-18 15:57] LABS: MANUAL DIFF FLAG NO
[2020-09-18 16:58] LABS: Lactic Acid 1.8 mmol/L (0.5-2.0)
[2020-09-18 17:09] LABS: Glucose Urine UA NEG (NEG); Leukocyte Esterase Urine 3+ (NEG); Nitrite Urine POS (NEG); Specific Gravity - Urine 1.025 (1.005-1.025); UACC Culture Trigger YES; Urine Blood 2+ (NEG); Urine Ketones 15 MG/DL (NEG); Urine Protein TRACE MG/DL (NEG-TRACE)
[2020-09-18 17:11] LABS: Appearance Urine HAZY; Color Urine YELLOW
[2020-09-18 17:24] LABS: Bacteria Urine 2+ /LPF; Mucus Urine TRACE /LPF; Squamous Epithelial Cell Urine TRACE /LPF
[2020-09-18] MEDS: cefTRIAXone sodium 1 GM in 0.9 % Sodium Chloride 50 ML IV (17:51)
[2020-09-18] MEDS: Gabapentin 300 MG CAPSULE PO (20:50)
[2020-09-18] MEDS: Tamsulosin HCL 0.4 MG CAPSULE PO (20:50)
[2020-09-18] MEDS: busPIRone HCl 10 MG TABLET PO (20:50)
[2020-09-18] MEDS: Heparin Sodium,Porcine 5,000 UNIT/ML VIAL 5000 UNIT SUBCUT (20:50)
--- NOTE | 2020-09-18 21:14 | PM.IMHP ---
History of Present Illness Date of Service: 09/18/20 Chief Complaint: Dizziness/generalized weakness 74-year-old male with a past medical history of hypertension, hyperlipidemia, hypertrophic cardiomyopathy, AGUEDA, PTSD, anxiety, depression, bipolar disorder, chronic low back pain, PTSD, decubitus ulcers, recent urinary retention on Hernandez for past few weeks presented to the hospital with a chief complaint of fall. Patient reports that over the past 1 week he had type of at least 4 episodes of falls. Mentions that he loses balance and falls. He generally uses a walker.; reports he has chronic low back pain. Also had a history of back surgery; denies any head strike or loss of consciousness with the falls. Complains of neck pain over the past couple days; denies any numbness tingling or focal weakness. Denies any headaches or blurry visions. Patient complains of pain in the right lateral ribs; also has pain at his decubitus ulcer site--> has visiting nurses for regular dressings. Denies any fever chills or cough. Review of all other systems is negative except mentioned above ER course: Per ER team, exam was nonfocal; CT head, CT C-spine, CT chest, CT abdomen pelvis showed no acute findings; urinalysis was abnormal consistent with UTI. Admitted to the hospital for further management. [facility] Medical History (Updated 09/22/20 @ 00:02 by Susi Dumont) Acute urinary retention Anxiety Back pain Bipolar disorder Decubital ulcer Depression HTN (hypertension) Hypertrophic cardiomyopathy AGUEDA (obstructive sleep apnea) PTSD (post-traumatic stress disorder) Urethral stricture Social History Alcohol intake: never Advance Directives Date on File: 04/26/20 service: Yes Current occupational status: retired and disabled Meds Allergies Allergy/AdvReac Type Severity Reaction Status Date / Time No Known Allergies Allergy Verified 09/14/20 14:18 Active Medications: Current Medications Generic Name Dose Route Start Last Admin Trade Name Freq PRN Reason Stop Dose Admin Acetaminophen 650 mg 09/18/20 19:36 Acetaminophen 325 Mg Tablet PO Q6H PRN Pain, Mild (Pain Scale 1-3) Alprazolam 0.25 mg 09/18/20 19:42 Alprazolam 0.25 Mg Tablet PO TID PRN Anxiety Amlodipine Besylate 5 mg 09/19/20 09:00 Amlodipine Besylate 5 Mg Tablet PO DAILY [facility] Protocol Buspirone HCl 10 mg 09/18/20 21:00 09/18/20 20:50 Buspirone Hcl 10 Mg Tablet PO 10 mg BID [facility] Administration Clonidine 0.2 mg 09/19/20 09:00 Clonidine 0.2 Mg Patch.Tdwk TRANSDERMA Tu@0900 [facility] Protocol Escitalopram Oxalate 10 mg 09/19/20 09:00 Escitalopram Oxalate 10 Mg Tablet PO DAILY [facility] Finasteride 5 mg 09/19/20 09:00 Finasteride 5 Mg Tablet PO DAILY [facility] Gabapentin 300 mg 09/18/20 21:00 09/18/20 20:50 Gabapentin 300 Mg Capsule PO 300 mg BID [facility] Administration Heparin Sodium (Porcine) 5,000 unit 09/18/20 20:00 09/18/20 20:50 Heparin Sodium,Porcine 5,000 Unit/Ml Vial SUBCUT 5,000 unit Q8H [facility] Administration Hydralazine HCl 5 mg 09/18/20 19:41 Hydralazine Hcl 20 Mg/Ml Vial IVPUSH Q4H PRN BP>180/90 Protocol Ceftriaxone Sodium 1 gm/ 50 mls @ 100 mls/hr 09/19/20 18:00 Sodium Chloride IV Q24H [facility] Losartan Potassium 100 mg 09/19/20 09:00 Losartan Potassium 50 Mg Tablet PO DAILY [facility] Protocol Magnesium Hydroxide 30 ml 09/18/20 19:36 Milk Of Magnesia 30 Ml Oral.Susp PO DAILY PRN Constipation Melatonin 6 mg 09/18/20 19:36 Melatonin 3 Mg Tablet PO BEDTIME PRN Insomnia Oxybutynin Chloride 15 mg 09/19/20 09:00 Oxybutynin Chloride Er 5 Mg Tab.Er.24 PO DAILY [facility] Oxycodone HCl 5 mg 09/18/20 19:36 Oxycodone Hcl Immed Release 5 Mg Tablet PO Q6H PRN Pain, Severe (Pain Scale 7-10) Pharmacy Consult 1 each 09/18/20 12:21 Consult Rx Perform Med Rec MISCELLANE ONCE PRN Consult order Propranolol HCl 80 mg 09/18/20 21:00 Propranolol Hcl La 80 Mg Cap.Sa.24h PO BID [facility] Protocol Sodium Chloride 3 ml 09/19/20 00:00 0.9 % Sodium Chloride Flush 3 Ml Syringe IVFLUSH QSHIFT [facility] Tamsulosin HCl 0.4 mg 09/18/20 21:00 09/18/20 20:50 Tamsulosin Hcl 0.4 Mg Capsule PO 0.4 mg BEDTIME [facility] Administration Home Medications Medication Instructions Recorded Confirmed Last Taken Type alprazolam 0.25 mg tablet (Xanax) 0.25 mg PO TID PRN 04/26/20 09/18/20 Unknown History amlodipine 5 mg tablet 5 mg PO DAILY 04/26/20 09/18/20 09/18/20 History citalopram 20 mg tablet 20 mg PO DAILY 04/26/20 09/18/20 09/18/20 History clonidine 0.2 mg/24 hr weekly 1 patch TRANSDERMAL QWEEK 04/26/20 09/18/20 Unknown History transdermal patch gabapentin 300 mg capsule 300 mg PO BID 04/26/20 09/18/20 09/18/20 History losartan 100 mg tablet 100 mg PO DAILY 04/26/20 09/18/20 09/18/20 History buspirone 10 mg tablet 10 mg PO BID 07/06/20 09/18/20 09/18/20 History furosemide 20 mg tablet (Lasix) 20 mg PO DAILY 07/06/20 09/18/20 09/18/20 History oxybutynin chloride 15 mg 15 mg PO DAILY 07/06/20 09/18/20 09/18/20 History tablet,extended release 24 hr propranolol 80 mg capsule,24 80 mg PO BID 07/06/20 09/18/20 09/18/20 History hr,extended release (Inderal LA) Physical Exam Vital Signs and Narrative: Vital Signs: Last Vital Signs Temp 97.9 F 09/18/20 20:17 Pulse 68 09/18/20 20:44 Resp 18 09/18/20 20:44 BP 179/56 H 09/18/20 20:44 Pulse Ox 93 09/18/20 20:44 Body Mass Index 38.0 Gen: Appears be in no acute distress HEENT: NCAT, Moist mucosa. Moves neck freely; reproducible tenderness noticed on the right trapezius area. Pulmonary: Vesicular breath sounds, fair air entry CVS: Normal S1-S2 Abdomen: BS+, Soft, Nontender Extremities: Warm well perfused; Neuro: Alert and awake. Moves all extremities equally; Integumentary: Noted decubitus ulcers on his buttocks; hyperemic, papular lesions noted. Tender on palpation. Results Labs CBC and Chem 7: 09/19/20 06:17 09/19/20 06:17 Labs: Laboratory Results - last 24 hr 09/18/20 09/18/20 09/18/20 13:09 13:09 13:09 MCV MCH MCHC RDW Plt Count MPV Immature Gran % (Auto) Neut % (Auto) Lymph % (Auto) [place] % (Auto) Eos % (Auto) Baso % (Auto) Lymph # (Auto) [place] # (Auto) Eos # (Auto) Baso # (Auto) Abs Immat Gran (auto) Absolute Neuts (auto) Absolute Nucleated RBC Nucleated RBC % (auto) Anion Gap 14 Estim Creat Clear Calc 102.2 Estimated GFR > 60 Random Glucose 129 H Lactic Acid Calcium 9.5 Magnesium 1.8 Total Bilirubin 1.3 H Direct Bilirubin 0.4 AST 19 ALT 14 Alkaline Phosphatase 136 H Total Creatine Kinase 75 D Troponin I High Sens 10.8 B-Natriuretic Peptide 75 Total Protein 6.2 L Albumin 3.6 Urine Color Urine Appearance Urine pH Ur Specific [place] Urine Protein Urine Glucose (UA) Urine Ketones Urine Blood Urine Nitrite Ur Leukocyte Esterase Urine RBC Urine WBC Ur Squamous Epith Cells Urine Bacteria Urine Mucus 09/18/20 09/18/20 09/18/20 15:42 16:34 16:57 MCV 94.5 MCH 32.1 MCHC 33.9 RDW 13.2 Plt Count 222 MPV 10.5 Immature Gran % (Auto) 0.4 Neut % (Auto) 83.3 H Lymph % (Auto) 6.9 L [place] % (Auto) 8.5 Eos % (Auto) 0.7 Baso % (Auto) 0.2 Lymph # (Auto) 1.1 L [place] # (Auto) 1.4 H Eos # (Auto) 0.1 Baso # (Auto) 0.0 Abs Immat Gran (auto) 0.07 H Absolute Neuts (auto) 13.7 H Absolute Nucleated RBC 0.000 Nucleated RBC % (auto) 0.0 Anion Gap Estim Creat Clear Calc Estimated GFR Random Glucose Lactic Acid 1.8 Calcium Magnesium Total Bilirubin Direct Bilirubin AST ALT Alkaline Phosphatase Total Creatine Kinase Troponin I High Sens B-Natriuretic Peptide Total Protein Albumin Urine Color YELLOW Urine Appearance HAZY Urine pH 6.0 Ur Specific [place] 1.025 Urine Protein TRACE Urine Glucose (UA) NEG Urine Ketones 15 Urine Blood 2+ H Urine Nitrite POS H Ur Leukocyte Esterase 3+ H Urine RBC 5-9 H Urine WBC 76-150 H Ur Squamous Epith Cells TRACE Urine Bacteria 2+ Urine Mucus TRACE Imaging Radiologist's Impressions: Impressions Cervical Spine CT 09/18/20 12:21 IMPRESSION: No acute intracranial process seen. Mild chronic small vessel microangiopathy. Mild prominence of lateral ventricles. There are degenerative disc changes of cervical spine without acute fracture or dislocation. No acute process seen in chest, abdomen or the pelvis. Head CT 09/18/20 12:21 IMPRESSION: No acute intracranial process seen. Mild chronic small vessel microangiopathy. Mild prominence of lateral ventricles. There are degenerative disc changes of cervical spine without acute fracture or dislocation. No acute process seen in chest, abdomen or the pelvis. Chest CT 09/18/20 13:25 IMPRESSION: No acute intracranial process seen. Mild chronic small vessel microangiopathy. Mild prominence of lateral ventricles. There are degenerative disc changes of cervical spine without acute fracture or dislocation. No acute process seen in chest, abdomen or the pelvis. Abdomen/Pelvis CT 09/18/20 13:34 IMPRESSION: No acute intracranial process seen. Mild chronic small vessel microangiopathy. Mild prominence of lateral ventricles. There are degenerative disc changes of cervical spine without acute fracture or dislocation. No acute process seen in chest, abdomen or the pelvis. Assessment and Plan (1) Acute UTI: Status: Acute 74-year-old male with a past medical history of hypertension, hyperlipidemia, hypertrophic cardiomyopathy, AGUEDA, PTSD, anxiety, depression, bipolar disorder, chronic low back pain, PTSD, decubitus ulcers, recent urinary retention on Hernandez for past few weeks presented to the hospital with a chief complaint of fall. Noted to have UTI. Admitted to the hospital for further management. UTI: Continue ceftriaxone. Follow up cultures. Decubitus ulcer: Spoke to the RN for decubitus ulcer care. Id consult for further recommendations. Falls: Appears mechanical in nature. Denies any headaches or blurry visions; thorough neurologic examination is limited secondary to the pain but grossly nonfocal. CT head and CT C-spine showed no acute Findings. PT/OT Back pain/neck pain/rib pain: Appears musculoskeletal. Pain control. Hypertension/hyperlipidemia: Continue home medications-clonidine patch, losartan, amlodipine. Labetalol p.r.n. for blood pressure greater than 180/90. Continue home statin For all other chronic conditions, home medications will be continued DVT ppx: Lovenox Full code Quality Stroke Does the patient have a stroke diagnosis?: No VTE Prior VTE?: No VTE Risk Level:: Medical - moderate - high VTE Device Contraindication: Patient Refused VTE Drug Contraindication: N/A - Med Ordered
--- NOTE | 2020-09-18 21:22 | MHC.CM.PN ---
CM met with admitted pt pending bed assignment. IMM reviewed and signed per protocol 09/18/20 at 2100. Pt is A&O x3. Pt is , but does not live with his . They have a very good relationship. HCP/ Carla Arciniega ([phone]). HCP is on file. Pt has services at [facility], PCP, Dr. Garcia, and a psychiatrist. Pt has home services through [facility] ([phone]). Pt has mcc, MAIL MANAGER and PT. Pt has daily MAIL MANAGER Friday-Friday. Pt is fully vaccinated with Moderna Vaccine. Pt does not remember dates. Pt has been to [facility] in the past and would like to return there if PT recommends STR, otherwise pt would like to resume his home services. Message in [employer] for [facility] to follow. [facility] CM to follow for d/c needs.
--- NOTE | 2020-09-18 22:11 | PC.NURSE ---
still waiting on pharmacy to deliver pt inderal.
[2020-09-18] MEDS: Propranolol HCL LA 80 MG CAP.SA.24H PO (23:19)
[2020-09-18 23:41] LABS: COVID-19 Test Negative (Negative)
[2020-09-19] VITALS (16 sets, daily range): BP systolic 130–198; BP diastolic 62–88; PULSE 63–74; RESP 18–27; TEMP 36.2–37.9; O2SAT 87–94
[2020-09-19 00:17] LABS: Troponin-I High Sensitivity 15.6 ng/L (<3.5-35.0)
--- NOTE | 2020-09-19 02:14 | PC.NURSE ---
pt not wanting to moved or turned due to the pain in his back.
[2020-09-19] MEDS: oxyCODONE HCl Immed Release 5 MG TABLET PO (02:18)
[2020-09-19] MEDS: HYDROmorphone HCl 0.5 MG/0.5 ML SYRINGE IVPUSH ×3 (04:19→15:49)
[2020-09-19] MEDS: Enoxaparin Sodium 40 MG/0.4 ML SYRINGE SUBCUT (05:27)
[2020-09-19 06:27] LABS: MANUAL DIFF FLAG NO
[2020-09-19 06:42] LABS: Basophils Percent Auto 0.3 % (0-2); Eosinophils Absolute Auto 0.2 X10*3/uL (0.0-0.4); Eosinophils Percent Auto 1.8 % (0-4); Hematocrit 40.3 % (42-52); Hemoglobin 13.7 g/dl (14.0-18.0); Imm Gran Abs Auto 0.04 X10*3/uL (0.00-0.03); Imm Gran Pct Auto 0.3 % (0.0-0.4); Lymphocytes Absolute Auto 1.7 X10*3/uL (1.2-4.9); Lymphocytes Percent Auto 14.6 % (20-40); Mean Corpuscular Hemoglobin 31.9 pg (27.0-33.0); Mean Corpuscular Volume 93.9 fL (80-98); Mean Platelet Volume 10.8 fL (9.4-12.4); Monocytes Absolute Auto 1.2 X10*3/uL (0.1-1.2); Neutrophils Absolute Auto 8.5 X10*3/uL (2.0-8.3); Platelet Count 224 X10*3/uL (160-400); Red Blood Count 4.29 X10*6/uL (4.60-5.80); Red Cell Distribution Width 13.2 % (11.0-16.0); White Blood Count 11.7 X10*3/uL (4.8-10.8)
[2020-09-19 07:09] LABS: Anion Gap 14 (12-20); Blood Urea Nitrogen 15 mg/dL (9-16); Calcium 9.2 mg/dL (8.4-10.2); Carbon Dioxide 27 mmol/L (22-29); Chloride 105 mmol/L (96-108); Creatinine Clr Calc Pharmacy 107.1; Estimated Glomerular Filt Rate > 60; Glucose Random 119 mg/dL (60-115); Potassium 3.7 mmol/L (3.3-5.1); Sodium 142 mmol/L (135-145)
[2020-09-19 07:20] LABS: Vitamin D 25-OH Total 39.4 ng/mL (>30)
[2020-09-19] MEDS: Gabapentin 300 MG CAPSULE PO ×2 (08:21→19:32)
[2020-09-19] MEDS: Losartan Potassium 50 MG TABLET 100 MG PO (08:21)
[2020-09-19] MEDS: busPIRone HCl 10 MG TABLET PO ×2 (08:21→19:32)
[2020-09-19] MEDS: Finasteride 5 MG TABLET PO (08:22)
[2020-09-19] MEDS: amLODIPine Besylate 5 MG TABLET PO (08:22)
[2020-09-19] MEDS: Propranolol HCL LA 80 MG CAP.SA.24H PO ×2 (08:22→19:31)
[2020-09-19] MEDS: Escitalopram Oxalate 10 MG TABLET PO (08:22)
[2020-09-19] MEDS: 0.9 % Sodium Chloride Flush 3 ML SYRINGE IVFLUSH ×3 (08:23→19:32)
[2020-09-19] MEDS: Lidocaine 4 % Patch ADH..PATCH 1 PATCH TRANSDERMA (08:23)
[2020-09-19] MEDS: cloNIDine 0.2 MG PATCH.TDWK TRANSDERMA (09:06)
--- NOTE | 2020-09-19 12:36 | HO.PM.IMPN ---
Subjective Subjective Date of Service: 09/20/20 Interval History: Complaining of neck pain, denies radiation to upper extremity, no weakness, no numbness, complaining of back pain, denies headache, no acute issues since admission. Review of Systems General no headache ,no dizziness, no fever chills. CVS no chest pain, no palpitation. Respiratory no cough no sob. Gastrointestinal no nausea no vomiting, no abdominal pain Physical Exam Vital Signs: Vital Signs: Last Vital Signs Temp 97.2 F 09/19/20 11:17 Pulse 69 09/19/20 11:17 Resp 20 09/19/20 11:17 BP 147/63 H 09/19/20 11:17 Pulse Ox 94 09/19/20 11:17 Body Mass Index 38.0 Gen: no acute distress Neck supple /good range of motion, no tenderness on C-spine, mild tenderness to palpation right cervical paravertebral muscle CVS:? Normal S1-S2 Respiratory clear to auscultation, no wheeze, no respiratory distress Abdomen: Distended,BS+, Nontender, no guarding, no rigidity Extremities:? No pitting edema Neuro:? Alert and awake.? Moves all extremities equally; Skin:? decubitus ulcers on rt buttock stage 2/significant excoriation groin ? Objective Data Current Medications Generic Name Dose Route Start Last Admin Trade Name Neoq PRN Reason Stop Dose Admin Acetaminophen 650 mg 09/18/20 19:36 Acetaminophen 325 Mg Tablet PO Q6H PRN Pain, Mild (Pain Scale 1-3) Alprazolam 0.25 mg 09/18/20 19:42 Alprazolam 0.25 Mg Tablet PO TID PRN Anxiety Amlodipine Besylate 5 mg 09/19/20 09:00 09/19/20 08:22 Amlodipine Besylate 5 Mg Tablet PO 5 mg DAILY SARANYA Administration Protocol Buspirone HCl 10 mg 09/18/20 21:00 09/19/20 08:21 Buspirone Hcl 10 Mg Tablet PO 10 mg BID SARANAY Administration Clonidine 0.2 mg 09/19/20 09:00 09/19/20 09:06 Clonidine 0.2 Mg Patch.Tdwk TRANSDERMA 0.2 mg Tu@0900 SARANYA Administration Protocol Enoxaparin Sodium 40 mg 09/18/20 06:00 09/19/20 05:27 Enoxaparin Sodium 40 Mg/0.4 Ml Syringe SUBCUT 40 mg Q24H SARANYA Administration Escitalopram Oxalate 10 mg 09/19/20 09:00 09/19/20 08:22 Escitalopram Oxalate 10 Mg Tablet PO 10 mg DAILY SARANYA Administration Finasteride 5 mg 09/19/20 09:00 09/19/20 08:22 Finasteride 5 Mg Tablet PO 5 mg DAILY SARANYA Administration Gabapentin 300 mg 09/18/20 21:00 09/19/20 08:21 Gabapentin 300 Mg Capsule PO 300 mg BID SARANYA Administration Hydralazine HCl 5 mg 09/18/20 19:41 Hydralazine Hcl 20 Mg/Ml Vial IVPUSH Q4H PRN BP>180/90 Protocol Hydromorphone HCl 0.5 mg 09/18/20 21:39 09/19/20 08:20 Hydromorphone Hcl 0.5 Mg/0.5 Ml Syringe IVPUSH 0.5 mg Q4H PRN Administration Breakthrough Pain Ceftriaxone Sodium 1 gm/ 50 mls @ 100 mls/hr 09/19/20 18:00 Sodium Chloride IV Q24H [facility] Lidocaine 1 patch 09/19/20 09:00 09/19/20 08:23 Lidocaine 4 % Patch Adh..Patch TRANSDERMA 1 patch DAILY [facility] Administration Protocol Losartan Potassium 100 mg 09/19/20 09:00 09/19/20 08:21 Losartan Potassium 50 Mg Tablet PO 100 mg DAILY [facility] Administration Protocol Magnesium Hydroxide 30 ml 09/18/20 19:36 Milk Of Magnesia 30 Ml Oral.Susp PO DAILY PRN Constipation Melatonin 6 mg 09/18/20 19:36 Melatonin 3 Mg Tablet PO BEDTIME PRN Insomnia Oxybutynin Chloride 15 mg 09/19/20 09:00 09/19/20 08:21 Oxybutynin Chloride Er 5 Mg Tab.Er.24 PO 15 mg DAILY [facility] Administration Oxycodone HCl 5 mg 09/18/20 19:36 09/19/20 02:18 Oxycodone Hcl Immed Release 5 Mg Tablet PO 5 mg Q6H PRN Administration Pain, Severe (Pain Scale 7-10) Pharmacy Consult 1 each 09/18/20 12:21 Consult Rx Perform Med Rec MISCELLANE ONCE PRN Consult order Propranolol HCl 80 mg 09/18/20 21:00 09/19/20 08:22 Propranolol Hcl La 80 Mg Cap.Sa.24h PO 80 mg BID SARANYA Administration Protocol Sodium Chloride 3 ml 09/19/20 00:00 09/19/20 08:23 0.9 % Sodium Chloride Flush 3 Ml Syringe IVFLUSH 3 ml QSHIFT SARANYA Administration Tamsulosin HCl 0.4 mg 09/18/20 21:00 09/18/20 20:50 Tamsulosin Hcl 0.4 Mg Capsule PO 0.4 mg BEDTIME SARANYA Administration Labs CBC & Chem 7: 09/19/20 06:17 09/19/20 06:17 Labs: Laboratory Results - last 24 hr 09/18/20 09/18/20 09/18/20 13:09 13:09 13:09 MCV MCH MCHC RDW Plt Count MPV Immature Gran % (Auto) Neut % (Auto) Lymph % (Auto) [place] % (Auto) Eos % (Auto) Baso % (Auto) Lymph # (Auto) [place] # (Auto) Eos # (Auto) Baso # (Auto) Abs Immat Gran (auto) Absolute Neuts (auto) Absolute Nucleated RBC Nucleated RBC % (auto) Anion Gap 14 Estim Creat Clear Calc 102.2 Estimated GFR > 60 Random Glucose 129 H Lactic Acid Calcium 9.5 Magnesium 1.8 Total Bilirubin 1.3 H Direct Bilirubin 0.4 AST 19 ALT 14 Alkaline Phosphatase 136 H Total Creatine Kinase 75 D Troponin I High Sens 10.8 B-Natriuretic Peptide 75 Total Protein 6.2 L Albumin 3.6 25-OH Vitamin D Total Urine Color Urine Appearance Urine pH Ur Specific [place] Urine Protein Urine Glucose (UA) Urine Ketones Urine Blood Urine Nitrite Ur Leukocyte Esterase Urine RBC Urine WBC Ur Squamous Epith Cells Urine Bacteria Urine Mucus COVID-19 (JENNA) COVID-19 Clin Com 09/18/20 09/18/20 09/18/20 15:42 16:34 16:57 MCV 94.5 MCH 32.1 MCHC 33.9 RDW 13.2 Plt Count 222 MPV 10.5 Immature Gran % (Auto) 0.4 Neut % (Auto) 83.3 H Lymph % (Auto) 6.9 L [place] % (Auto) 8.5 Eos % (Auto) 0.7 Baso % (Auto) 0.2 Lymph # (Auto) 1.1 L [place] # (Auto) 1.4 H Eos # (Auto) 0.1 Baso # (Auto) 0.0 Abs Immat Gran (auto) 0.07 H Absolute Neuts (auto) 13.7 H Absolute Nucleated RBC 0.000 Nucleated RBC % (auto) 0.0 Anion Gap Estim Creat Clear Calc Estimated GFR Random Glucose Lactic Acid 1.8 Calcium Magnesium Total Bilirubin Direct Bilirubin AST ALT Alkaline Phosphatase Total Creatine Kinase Troponin I High Sens B-Natriuretic Peptide Total Protein Albumin 25-OH Vitamin D Total Urine Color YELLOW Urine Appearance HAZY Urine pH 6.0 Ur Specific [place] 1.025 Urine Protein TRACE Urine Glucose (UA) NEG Urine Ketones 15 Urine Blood 2+ H Urine Nitrite POS H Ur Leukocyte Esterase 3+ H Urine RBC 5-9 H Urine WBC 76-150 H Ur Squamous Epith Cells TRACE Urine Bacteria 2+ Urine Mucus TRACE COVID-19 (JENNA) COVID-19 Clin Com 09/18/20 09/18/20 09/19/20 23:22 23:40 06:17 MCV 93.9 MCH 31.9 MCHC 34.0 RDW 13.2 Plt Count 224 MPV 10.8 Immature Gran % (Auto) 0.3 Neut % (Auto) 73.0 Lymph % (Auto) 14.6 L [place] % (Auto) 10.0 Eos % (Auto) 1.8 Baso % (Auto) 0.3 Lymph # (Auto) 1.7 [place] # (Auto) 1.2 Eos # (Auto) 0.2 Baso # (Auto) 0.0 Abs Immat Gran (auto) 0.04 H Absolute Neuts (auto) 8.5 H Absolute Nucleated RBC 0.000 Nucleated RBC % (auto) 0.0 Anion Gap Estim Creat Clear Calc Estimated GFR Random Glucose Lactic Acid Calcium Magnesium Total Bilirubin Direct Bilirubin AST ALT Alkaline Phosphatase Total Creatine Kinase Troponin I High Sens 15.6 B-Natriuretic Peptide Total Protein Albumin 25-OH Vitamin D Total Urine Color Urine Appearance Urine pH Ur Specific [place] Urine Protein Urine Glucose (UA) Urine Ketones Urine Blood Urine Nitrite Ur Leukocyte Esterase Urine RBC Urine WBC Ur Squamous Epith Cells Urine Bacteria Urine Mucus COVID-19 (JENNA) Negative COVID-19 Clin Com See Note 09/19/20 09/19/20 06:17 06:17 MCV MCH MCHC RDW Plt Count MPV Immature Gran % (Auto) Neut % (Auto) Lymph % (Auto) [place] % (Auto) Eos % (Auto) Baso % (Auto) Lymph # (Auto) [place] # (Auto) Eos # (Auto) Baso # (Auto) Abs Immat Gran (auto) Absolute Neuts (auto) Absolute Nucleated RBC Nucleated RBC % (auto) Anion Gap 14 Estim Creat Clear Calc 107.1 Estimated GFR > 60 Random Glucose 119 H Lactic Acid Calcium 9.2 Magnesium Total Bilirubin Direct Bilirubin AST ALT Alkaline Phosphatase Total Creatine Kinase Troponin I High Sens B-Natriuretic Peptide Total Protein Albumin 25-OH Vitamin D Total 39.4 Urine Color Urine Appearance Urine pH Ur Specific [place] Urine Protein Urine Glucose (UA) Urine Ketones Urine Blood Urine Nitrite Ur Leukocyte Esterase Urine RBC Urine WBC Ur Squamous Epith Cells Urine Bacteria Urine Mucus COVID-19 (JENNA) COVID-19 Clin Com Microbiology Microbiology Results: Microbiology 09/18/20 16:57 Urine Culture - Preliminary Urine Catheterized - Hernandez Catheter Staphylococcus species Assessment and Plan (1) Decubital ulcer: Status: Acute (2) Acute UTI: Status: Acute (3) Multiple falls: Status: Acute Assessment and Plan: 74-year-old male past medical history of hypertension, hyperlipidemia, hypertrophic cardiomyopathy, obstructive sleep apnea, PTSD, anxiety, bipolar disorder, chronic lower back pain, decubitus ulcers, recent urinary retention status post Hernandez catheter placement and dilatation of urethral stricture presented to [facility] due to multiple episodes of fall due to loss of balance, patient denied any head injury or loss of consciousness. Complicated Urinary tract infection with chronic indwelling Hernandez catheter/urinary retention Likely contributing to falls, continue IV ceftriaxone follow urine culture and blood cultures, WBC trending down, low-grade fevers continue Tylenol Continue Flomax and finasteride Chronic neck and back pain CT head and C-spine showed no acute finding, normal neck examination, likely musculoskeletal pain Continue Tylenol, oxycodone Decubiti ulcer continue frequent position change, high-protein diet and wound care Hypertension Continue home medication losartan 100 mg, propranolol 80 mg twice daily, clonidine 0.2 mg patch, amlodipine 5 mg and follow BP closely, added low-dose hydralazine as needed Recurrent falls Negative workup in the emergency room including CT head, CT C-spine, CT chest, CT abdomen and pelvis At baseline patient ambulates with a walker and lives alone and receive assistance from family, patient seen by Physical therapy and they recommend short-term rehab Mood disorder continue home medication DVT prophylaxis on Lovenox Quality Stroke Does the patient have a stroke diagnosis?: No VTE Prior VTE?: No VTE Risk Level:: Medical - moderate - high VTE Device Contraindication: Patient Refused VTE Drug Contraindication: N/A - Med Ordered
[2020-09-19] MEDS: hydrALAZINE HCl 20 MG/ML VIAL 5 MG IVPUSH (15:49)
[2020-09-19] MEDS: cefTRIAXone sodium 1 GM in 0.9 % Sodium Chloride 50 ML IV (15:50)
--- NOTE | 2020-09-19 16:16 | W.PM.IDCN ---
History of Present Illness Data of Consult Service Date: 09/19/20 Primary Care Provider: Drake Garcia MD HPI Reason for consult: UTI,decubitus ulcers He presents after 3 falls. He has area of buttocks decubiti as well He has Hernandez He has active urinalysis Review of Systems Review of Systems: Yes all other systems are reviewed and are negative PMFSH Past Medical History Medical History (Updated 09/22/20 @ 00:02 by Susi Dumont) Acute urinary retention Anxiety Back pain Bipolar disorder Decubital ulcer Depression HTN (hypertension) Hypertrophic cardiomyopathy AGUEDA (obstructive sleep apnea) PTSD (post-traumatic stress disorder) Urethral stricture Social History Social History Alcohol intake: never Advance Directives Date on File: 04/26/20 service: Yes Current occupational status: retired and disabled Meds Allergies Allergy/AdvReac Type Severity Reaction Status Date / Time No Known Allergies Allergy Verified 09/14/20 14:18 Active Medications: Current Medications Generic Name Dose Route Start Last Admin Trade Name Freq PRN Reason Stop Dose Admin Acetaminophen 650 mg 09/18/20 19:36 Acetaminophen 325 Mg Tablet PO Q6H PRN Pain, Mild (Pain Scale 1-3) Alprazolam 0.25 mg 09/18/20 19:42 Alprazolam 0.25 Mg Tablet PO TID PRN Anxiety Amlodipine Besylate 5 mg 09/19/20 09:00 09/19/20 08:22 Amlodipine Besylate 5 Mg Tablet PO 5 mg DAILY SARANYA Administration Protocol Buspirone HCl 10 mg 09/18/20 21:00 09/19/20 08:21 Buspirone Hcl 10 Mg Tablet PO 10 mg BID SARANYA Administration Clonidine 0.2 mg 09/19/20 09:00 09/19/20 09:06 Clonidine 0.2 Mg Patch.Tdwk TRANSDERMA 0.2 mg Tu@0900 SARANYA Administration Protocol Enoxaparin Sodium 40 mg 09/18/20 06:00 09/19/20 05:27 Enoxaparin Sodium 40 Mg/0.4 Ml Syringe SUBCUT 40 mg Q24H SARANYA Administration Escitalopram Oxalate 10 mg 09/19/20 09:00 09/19/20 08:22 Escitalopram Oxalate 10 Mg Tablet PO 10 mg DAILY SARANYA Administration Finasteride 5 mg 09/19/20 09:00 09/19/20 08:22 Finasteride 5 Mg Tablet PO 5 mg DAILY SARANYA Administration Gabapentin 300 mg 09/18/20 21:00 09/19/20 08:21 Gabapentin 300 Mg Capsule PO 300 mg BID SARANYA Administration Hydralazine HCl 5 mg 09/18/20 19:41 09/19/20 15:49 Hydralazine Hcl 20 Mg/Ml Vial IVPUSH 5 mg Q4H PRN Administration BP>180/90 Protocol Hydromorphone HCl 0.5 mg 09/18/20 21:39 09/19/20 15:49 Hydromorphone Hcl 0.5 Mg/0.5 Ml Syringe IVPUSH 0.5 mg Q4H PRN Administration Breakthrough Pain Ceftriaxone Sodium 1 gm/ 50 mls @ 100 mls/hr 09/19/20 18:00 09/19/20 15:50 Sodium Chloride IV 100 mls/hr Q24H SARANYA Administration Lidocaine 1 patch 09/19/20 09:00 09/19/20 08:23 Lidocaine 4 % Patch Adh..Patch TRANSDERMA 1 patch DAILY SARANYA Administration Protocol Losartan Potassium 100 mg 09/19/20 09:00 09/19/20 08:21 Losartan Potassium 50 Mg Tablet PO 100 mg DAILY SARANYA Administration Protocol Magnesium Hydroxide 30 ml 09/18/20 19:36 Milk Of Magnesia 30 Ml Oral.Susp PO DAILY PRN Constipation Melatonin 6 mg 09/18/20 19:36 Melatonin 3 Mg Tablet PO BEDTIME PRN Insomnia Oxybutynin Chloride 15 mg 09/19/20 09:00 09/19/20 08:21 Oxybutynin Chloride Er 5 Mg Tab.Er.24 PO 15 mg DAILY SARANYA Administration Oxycodone HCl 5 mg 09/18/20 19:36 09/19/20 02:18 Oxycodone Hcl Immed Release 5 Mg Tablet PO 5 mg Q6H PRN Administration Pain, Severe (Pain Scale 7-10) Pharmacy Consult 1 each 09/18/20 12:21 Consult Rx Perform Med Rec MISCELLANE ONCE PRN Consult order Propranolol HCl 80 mg 09/18/20 21:00 09/19/20 08:22 Propranolol Hcl La 80 Mg Cap.Sa.24h PO 80 mg BID SARANYA Administration Protocol Sodium Chloride 3 ml 09/19/20 00:00 09/19/20 15:50 0.9 % Sodium Chloride Flush 3 Ml Syringe IVFLUSH 3 ml QSHIFT SARANYA Administration Tamsulosin HCl 0.4 mg 09/18/20 21:00 09/18/20 20:50 Tamsulosin Hcl 0.4 Mg Capsule PO 0.4 mg BEDTIME SARANYA Administration Home Medications Medication Instructions Recorded Confirmed Last Taken Type alprazolam 0.25 mg tablet (Xanax) 0.25 mg PO TID PRN 04/26/20 09/18/20 Unknown History amlodipine 5 mg tablet 5 mg PO DAILY 04/26/20 09/18/20 09/18/20 History citalopram 20 mg tablet 20 mg PO DAILY 04/26/20 09/18/20 09/18/20 History clonidine 0.2 mg/24 hr weekly 1 patch TRANSDERMAL QWEEK 04/26/20 09/18/20 Unknown History transdermal patch gabapentin 300 mg capsule 300 mg PO BID 04/26/20 09/18/20 09/18/20 History losartan 100 mg tablet 100 mg PO DAILY 04/26/20 09/18/20 09/18/20 History buspirone 10 mg tablet 10 mg PO BID 07/06/20 09/18/20 09/18/20 History furosemide 20 mg tablet (Lasix) 20 mg PO DAILY 07/06/20 09/18/20 09/18/20 History oxybutynin chloride 15 mg 15 mg PO DAILY 07/06/20 09/18/20 09/18/20 History tablet,extended release 24 hr propranolol 80 mg capsule,24 80 mg PO BID 07/06/20 09/18/20 09/18/20 History hr,extended release (Inderal LA) Physical Exam Vital Signs: Vital Signs: Last Vital Signs Temp 98.3 F 09/19/20 15:34 Pulse 67 09/19/20 15:49 Resp 18 09/19/20 15:34 BP 198/87 H 09/19/20 15:49 Pulse Ox 93 09/19/20 15:34 Body Mass Index 38.0 Const: General: cooperative HENMT: Head: Yes normal to inspection Mouth: Normal oral and palatal mucosa present Eyes: General: appearance normal, both eyes and all related structures Resp: Effort & Inspection: normal respiratory effort Cardio: Rate: regular rate Rhythm: regular rhythm GI: Palpation (GI): Soft to palpation and nontender Skin: General skin exam: no rashes or lesions noted Extrem: Other: decubiti,mild erythema,not tunneling Results Labs CBC & Chem 7: 09/19/20 06:17 09/19/20 06:17 Labs: Short CBC 09/19/20 Range/Units 06:17 WBC 11.7 H (4.8-10.8) X10*3/uL Hgb 13.7 L (14.0-18.0) g/dl Hct 40.3 L (42-52) % Plt Count 224 (160-400) X10*3/uL BMP 09/19/20 06:17 Sodium 142 Potassium 3.7 Chloride 105 Carbon Dioxide 27 BUN 15 Creatinine 0.82 Calcium 9.2 Urine 09/18/20 Range/Units 16:57 Urine Color YELLOW Urine Appearance HAZY Urine pH 6.0 (5.0-8.0) Ur Specific [place] 1.025 (1.005-1.025) Urine Protein TRACE (NEG-TRACE) MG/DL Urine Glucose (UA) NEG (NEG) MG/DL Microbiology Microbiology Results: Microbiology 09/18/20 16:57 Urine Catheterized - Hernandez Catheter Urine Culture - Preliminary Staphylococcus species Assessment and Plan (1) Acute UTI: Status: Acute He has increased pyuria He has probable UTI Continue Ceftriaxone (2) Multiple falls: Status: Acute (3) Decubital ulcer: Buttock ulcers may or may not have depth Would continue Ceftriaxone Consider MRI check if no improving day or two
[2020-09-19] MEDS: Tamsulosin HCL 0.4 MG CAPSULE PO (19:32)
[2020-09-19] MEDS: Acetaminophen 325 MG TABLET 650 MG PO (21:32)
[2020-09-20] VITALS (11 sets, daily range): BP systolic 115–176; BP diastolic 54–92; PULSE 59–76; RESP 15–20; TEMP 36.1–37.4; O2SAT 93–96
[2020-09-20] MEDS: Enoxaparin Sodium 40 MG/0.4 ML SYRINGE SUBCUT (04:59)
[2020-09-20] MEDS: 0.9 % Sodium Chloride Flush 3 ML SYRINGE IVFLUSH ×2 (08:17→23:56)
[2020-09-20] MEDS: Finasteride 5 MG TABLET PO (08:18)
[2020-09-20] MEDS: busPIRone HCl 10 MG TABLET PO ×2 (08:19→20:00)
[2020-09-20] MEDS: Escitalopram Oxalate 10 MG TABLET PO (08:19)
[2020-09-20] MEDS: Propranolol HCL LA 80 MG CAP.SA.24H PO ×2 (08:20→20:00)
[2020-09-20] MEDS: Gabapentin 300 MG CAPSULE PO ×2 (08:21→20:00)
[2020-09-20] MEDS: amLODIPine Besylate 5 MG TABLET PO (08:21)
[2020-09-20] MEDS: Losartan Potassium 50 MG TABLET 100 MG PO (08:21)
[2020-09-20] MEDS: oxyCODONE HCl Immed Release 5 MG TABLET PO ×2 (08:27→16:31)
--- NOTE | 2020-09-20 13:36 | MHC.CM.PN ---
pt accepted at [facility] when ready for dc
--- NOTE | 2020-09-20 15:47 | MHC.CM.PN ---
pt to be dcd today to [facility] at 5 [facility] called kami and then spoke with darvin at [phone] ext [phone] who said to book transportation thru his medicare
--- NOTE | 2020-09-20 15:51 | MHC.CM.PN ---
spoke mwith pts tea who was notified of dc to [facility] at 5 ..dr paz spoke with pts as well
--- NOTE | 2020-09-20 16:03 | P.DS_ITS ---
DS: Providers Provider Date of Service: 09/20/20 Date of admission: 09/18/20 19:37 Primary care physician: Drake Garcia MD Consults: 09/18/20 21:37 Consult to Infectious Diseases Routine Consulting Provider: Ariane Dozier Reason for consultation: CAUTI; decub ulcers DS: Diagnosis Discharge Diagnosis (1) Decubital ulcer: Status: Acute (2) Acute UTI: Status: Acute (3) Multiple falls: Status: Acute DS: Medications Discharge Medications Home Medications: Home Medications Medication Instructions Recorded Confirmed alprazolam 0.25 mg tablet (Xanax) 0.25 mg PO TID PRN 04/26/20 09/18/20 amlodipine 5 mg tablet 5 mg PO DAILY 04/26/20 09/18/20 citalopram 20 mg tablet 20 mg PO DAILY 04/26/20 09/18/20 clonidine 0.2 mg/24 hr weekly 1 patch TRANSDERMAL QWEEK 04/26/20 09/18/20 transdermal patch gabapentin 300 mg capsule 300 mg PO BID 04/26/20 09/18/20 losartan 100 mg tablet 100 mg PO DAILY 04/26/20 09/18/20 buspirone 10 mg tablet 10 mg PO BID 07/06/20 09/18/20 furosemide 20 mg tablet (Lasix) 20 mg PO DAILY 07/06/20 09/18/20 oxybutynin chloride 15 mg 15 mg PO DAILY 07/06/20 09/18/20 tablet,extended release 24 hr propranolol 80 mg capsule,24 80 mg PO BID 07/06/20 09/18/20 hr,extended release (Inderal LA) Previous Rx's Medication Instructions Recorded finasteride 5 mg tablet 5 mg PO DAILY 90 Days #90 tab 08/02/20 tamsulosin 0.4 mg capsule 0.4 mg PO BEDTIME 90 Days #90 cap 08/02/20 cephalexin 500 mg capsule 500 mg PO Q8H #30 cap 09/20/20 meloxicam 15 mg tablet 15 mg PO DAILY #10 tab 09/20/20 DS: Summary Hospital Course Hospital Course: History of presenting illness Chief Complaint: Dizziness/generalized weakness 74-year-old male with a past medical history of hypertension, hyperlipidemia, hypertrophic cardiomyopathy, AGUEDA, PTSD, anxiety, depression, bipolar disorder, chronic low back pain, PTSD, decubitus ulcers, recent urinary retention on Hernandez for past few weeks presented to the hospital with a chief complaint of fall. Patient reports that over the past 1 week he had type of at least 4 episodes of falls.? Mentions that he loses balance and falls.? He generally uses a walker.; reports he has chronic low back pain.? Also had a history of back surgery; denies any head strike or loss of consciousness with the falls. Complains of neck pain over the past couple days; denies any numbness tingling or focal weakness.? Denies any headaches or blurry visions. Patient complains of pain in the right lateral ribs; also has pain at his decubitus ulcer site--> has visiting nurses for regular dressings. Denies any fever chills or cough. Review of all other systems is negative except mentioned above ER course:? Per ER team, exam was nonfocal; CT head, CT C-spine, CT chest, CT abdomen pelvis showed no acute findings; urinalysis was abnormal consistent with UTI.? Admitted to the hospital for further management. Past medical history Anxiety Bipolar disorder Depression HTN (hypertension) Hypertrophic cardiomyopathy AGUEDA (obstructive sleep apnea) PTSD (post-traumatic stress disorder) Hospital course 74-year-old male with past medical history of hypertension, hyperlipidemia, hypertrophic cardiomyopathy, obstructive sleep apnea, PTSD, anxiety, bipolar disorder, chronic lower back pain, decubitus ulcers, recent urinary retention status post Hernandez catheter placement and dilatation of urethral stricture presented to [facility] due to multiple episodes of fall due to loss of balance, patient denied any head injury or loss of consciousness patient admitted to hospital with Complicated Urinary tract infection with chronic indwelling Hernandez catheter/urinary retention Likely contributing to falls, patient treated with IV ceftriaxone, urine culture grew Staphylococcus , blood cultures negative, WBC trending down, no recurrent fever patient is being discharged to rehab on by mouth antibiotic Keflex 500 t.i.d. for 10 more days,Continue Flomax and finasteride, continue indwelling Hernandez catheter and outpatient follow-up with Urology Chronic neck and back pain CT head and C-spine showed no acute finding, normal neck examination, likely musculoskeletal pain recommend to take meloxicam for 10 days and Tylenol as needed Decubiti ulcer continue frequent position change, high-protein diet and wound care Hypertension Continue home medication losartan 100 mg, propranolol 80 mg twice daily, clonidine 0.2 mg patch, amlodipine 5 mg and follow BP closely Recurrent falls Negative workup in the emergency room including CT head, CT C-spine, CT chest, CT abdomen and pelvis At baseline patient ambulates with a walker and lives alone and receive assistance from family, patient seen by Physical therapy and they recommend short-term rehab Mood disorder continue home medication Time Spent with Patient Time attestation: Total time spent providing and/or coordinating discharge services: Discharge coordination time: Greater than 30 minutes Quality: Stroke Does the patient have a stroke diagnosis?: No Physical Exam Vital Signs: Vital Signs: Last Vital Signs Temp 98 F 09/20/20 15:17 Pulse 66 09/20/20 15:17 Resp 15 09/20/20 15:17 BP 170/78 H 09/20/20 15:17 Pulse Ox 94 09/20/20 15:17 Body Mass Index 38.0 Gen:? no acute distress Neck supple /good range of motion, no tenderness on C-spine, mild tenderness to palpation right cervical paravertebral muscle CVS:? Normal S1-S2 Respiratory clear to auscultation, no wheeze, no respiratory distress Abdomen:? Distended,BS+, Nontender, no guarding, no rigidity Extremities:? No pitting edema Neuro:? Alert and awake.? Moves all extremities equally; Skin:? decubitus ulcers on rt buttock stage 2/significant excoriation groin ? DS: Data Data Completed and Pending Labs on day of discharge: Preliminary micro results at discharge 09/18/20 16:34 Blood Culture - Preliminary Blood - Venous No growth after 24 hours. 09/18/20 16:34 Blood Culture - Preliminary Blood - Venous No growth after 24 hours. Discharge Plan Discharge Patient Disposition: Xfer [facility] Discharge Diagnosis: Urinary tract infection with chronic indwelling Hernandez catheter Unsteady gait Chronic neck and back pain Decubiti ulcer Referrals: [facility] [Other] - 1 Week Drake Garcia MD [Primary Care Provider] - 1 Week Discharge Medications: New meloxicam 15 mg tablet 15 mg PO DAILY Qty: 10 RF: 0 cephalexin 500 mg capsule 500 mg PO Q8H Qty: 30 RF: 0 Continued amlodipine 5 mg Tablet 5 mg PO DAILY RF: 0 alprazolam [Xanax] 0.25 mg tablet 0.25 mg PO TID PRN (Reason: Anxiety) RF: 0 clonidine 0.2 mg/24 hr Patch Weekly 1 patch TRANSDERMAL QWEEK RF: 0 citalopram 20 mg Tablet 20 mg PO DAILY RF: 0 gabapentin 300 mg Capsule 300 mg PO BID RF: 0 losartan 100 mg Tablet 100 mg PO DAILY RF: 0 oxybutynin chloride 15 mg Tablet Extended Release 24 Hr 15 mg PO DAILY RF: 0 buspirone 10 mg Tablet 10 mg PO BID RF: 0 propranolol [Inderal LA] 80 mg Capsule,Extended Release 24 Hr 80 mg PO BID RF: 0 furosemide [Lasix] 20 mg Tablet 20 mg PO DAILY RF: 0 finasteride 5 mg tablet 5 mg PO DAILY 90 Days Qty: 90 RF: 1 tamsulosin 0.4 mg capsule 0.4 mg PO BEDTIME 90 Days Qty: 90 RF: 1 Discharge Orders: Discharge Order (Routine); Ordered 09/20/20 Ordered By: Alea Camilo Diet: advance to usual diet Activity on Discharge: As tolerated Stand Alone Forms: Patient Portal Discharge page Care Plan Goals: Recurrent falls/ neck and back pain/urinary tract infection, take Keflex 500 mg q.8 hours for 10 more days, recurrent fall continue physical therapy as tolerated in regard to neck and back pain take meloxicam 1 tablet daily for 10 days Health Concerns: htn/urinary retention chronic indwelling Hernandez Plan of Treatment: Outpatient follow-up with primary care physician and Urology Dr. callaway Assessment: As above
--- NOTE | 2020-09-20 17:27 | P.PNIM_ITS ---
Subjective Subjective Date of Service: 09/20/20 Interval History: Complaining of neck and back pain, feels cannot move his body, requesting for pain medicine and declined discharge to rehab facility due to pain. Review of Systems General no headache ,no dizziness, no fever chills.? CVS no chest pain, no palpitation.? Respiratory no cough ,no sob.? Gastrointestinal no nausea, no vomiting, no abdominal pain Physical Exam Vital Signs: Vital Signs: Last Vital Signs Temp 98 F 09/20/20 15:17 Pulse 66 09/20/20 15:17 Resp 15 09/20/20 15:17 BP 170/78 H 09/20/20 15:17 Pulse Ox 94 09/20/20 15:17 Body Mass Index 38.0 Gen:? no acute distress Neck supple /good range of motion, no tenderness on C-spine, mild tenderness to palpation right cervical paravertebral muscle CVS:? Normal S1-S2 Respiratory clear to auscultation, no wheeze, no respiratory distress Abdomen:? Distended,BS+, Nontender, no guarding, no rigidity Extremities:? No pitting edema Neuro:? Alert and awake.? Moves all extremities equally; Skin:? decubitus ulcers on rt buttock stage 2/significant excoriation groin Objective Data Current Medications Generic Name Dose Route Start Last Admin Trade Name Neoq PRN Reason Stop Dose Admin Acetaminophen 650 mg 09/18/20 19:36 09/19/20 21:32 Acetaminophen 325 Mg Tablet PO 650 mg Q6H PRN Administration Pain, Mild (Pain Scale 1-3) Alprazolam 0.25 mg 09/18/20 19:42 Alprazolam 0.25 Mg Tablet PO TID PRN Anxiety Amlodipine Besylate 5 mg 09/19/20 09:00 09/20/20 08:21 Amlodipine Besylate 5 Mg Tablet PO 5 mg DAILY SARANYA Administration Protocol Buspirone HCl 10 mg 09/18/20 21:00 09/20/20 08:19 Buspirone Hcl 10 Mg Tablet PO 10 mg BID SARANYA Administration Clonidine 0.2 mg 09/19/20 09:00 09/19/20 09:06 Clonidine 0.2 Mg Patch.Tdwk TRANSDERMA 0.2 mg Tu@0900 SARANYA Administration Protocol Enoxaparin Sodium 40 mg 09/18/20 06:00 09/20/20 04:59 Enoxaparin Sodium 40 Mg/0.4 Ml Syringe SUBCUT 40 mg Q24H SARANYA Administration Escitalopram Oxalate 10 mg 09/19/20 09:00 09/20/20 08:19 Escitalopram Oxalate 10 Mg Tablet PO 10 mg DAILY SARANYA Administration Finasteride 5 mg 09/19/20 09:00 09/20/20 08:18 Finasteride 5 Mg Tablet PO 5 mg DAILY SARANYA Administration Gabapentin 300 mg 09/18/20 21:00 09/20/20 08:21 Gabapentin 300 Mg Capsule PO 300 mg BID SARANYA Administration Hydralazine HCl 5 mg 09/18/20 19:41 09/19/20 15:49 Hydralazine Hcl 20 Mg/Ml Vial IVPUSH 5 mg Q4H PRN Administration BP>180/90 Protocol Hydromorphone HCl 0.5 mg 09/18/20 21:39 09/19/20 15:49 Hydromorphone Hcl 0.5 Mg/0.5 Ml Syringe IVPUSH 0.5 mg Q4H PRN Administration Breakthrough Pain Ceftriaxone Sodium 1 gm/ 50 mls @ 100 mls/hr 09/19/20 18:00 09/19/20 16:22 Sodium Chloride IV Infused Q24H [facility] Infusion Lidocaine 1 patch 09/19/20 09:00 09/20/20 08:21 Lidocaine 4 % Patch Adh..Patch TRANSDERMA Not Given DAILY [facility] Protocol Losartan Potassium 100 mg 09/19/20 09:00 09/20/20 08:21 Losartan Potassium 50 Mg Tablet PO 100 mg DAILY SARANYA Administration Protocol Magnesium Hydroxide 30 ml 09/18/20 19:36 Milk Of Magnesia 30 Ml Oral.Susp PO DAILY PRN Constipation Melatonin 6 mg 09/18/20 19:36 Melatonin 3 Mg Tablet PO BEDTIME PRN Insomnia Oxybutynin Chloride 15 mg 09/19/20 09:00 09/20/20 08:19 Oxybutynin Chloride Er 5 Mg Tab.Er.24 PO 15 mg DAILY [facility] Administration Oxycodone HCl 5 mg 09/18/20 19:36 09/20/20 16:31 Oxycodone Hcl Immed Release 5 Mg Tablet PO 5 mg Q6H PRN Administration Pain, Severe (Pain Scale 7-10) Pharmacy Consult 1 each 09/18/20 12:21 Consult Rx Perform Med Rec MISCELLANE ONCE PRN Consult order Propranolol HCl 80 mg 09/18/20 21:00 09/20/20 08:20 Propranolol Hcl La 80 Mg Cap.Sa.24h PO 80 mg BID SARANYA Administration Protocol Sodium Chloride 3 ml 09/19/20 00:00 09/20/20 16:14 0.9 % Sodium Chloride Flush 3 Ml Syringe IVFLUSH Not Given QSHIFT SARANYA Tamsulosin HCl 0.4 mg 09/18/20 21:00 09/19/20 19:32 Tamsulosin Hcl 0.4 Mg Capsule PO 0.4 mg BEDTIME SARANYA Administration Labs CBC & Chem 7: 09/19/20 06:17 09/19/20 06:17 Microbiology Microbiology Results: Microbiology 09/18/20 16:57 Urine Culture - Final Urine Catheterized - Hernandez Catheter Staphylococcus aureus 09/18/20 16:34 Blood Culture - Preliminary Blood - Venous No growth after 24 hours. 09/18/20 16:34 Blood Culture - Preliminary Blood - Venous No growth after 24 hours. Assessment and Plan (1) Decubital ulcer: Status: Acute (2) Acute UTI: Status: Acute (3) Multiple falls: Status: Acute (4) Urethral stricture: Status: Acute (5) Acute urinary retention: Status: Acute (6) Back pain: Status: Acute Assessment and Plan: 74-year-old male past medical history of hypertension, hyperlipidemia, hypertrophic cardiomyopathy, obstructive sleep apnea, PTSD, anxiety, bipolar disorder, chronic lower back pain, decubitus ulcers, recent urinary retention status post Hernandez catheter placement and dilatation of urethral stricture presented to [facility] due to multiple episodes of fall due to loss of balance, patient denied any head injury or loss of consciousness. Complicated Urinary tract infection with chronic indwelling Hernandez catheter/urinary retention Likely contributing to falls, continue IV ceftriaxone, urine culture grew Staph aureus , blood cultures negative WBC trended down, no further fever chills Continue Flomax and finasteride, continue Hernandez catheter Patient was discharged to rehab facility on by mouth Keflex for 10 more days however patient refused to go to rehab due to persistent neck/ back pain and wishes to go to rehab tomorrow Morning Spoke with patient Carla Arciniega [phone] and informed her about discharge planning and answered all her questions. Chronic neck and back pain CT head and C-spine showed no acute finding, normal neck examination, likely musculoskeletal pain Continue Tylenol, oxycodone and added mobic Decubiti ulcer continue frequent position change, high-protein diet and wound care Hypertension Continue home medication losartan 100 mg, propranolol 80 mg twice daily, clonidine 0.2 mg patch, amlodipine 5 mg and follow BP closely,prn low-dose hydralazine as needed Recurrent falls Negative workup in the emergency room including CT head, CT C-spine, CT chest, CT abdomen and pelvis At baseline patient ambulates with a walker and lives alone and receive assistance from family, patient seen by Physical therapy and they recommend short-term rehab Mood disorder continue home medication DVT prophylaxis on Lovenox Quality Stroke Does the patient have a stroke diagnosis?: No VTE Prior VTE?: No VTE Risk Level:: Medical - moderate - high VTE Device Contraindication: Patient Refused VTE Drug Contraindication: N/A - Med Ordered
--- NOTE | 2020-09-20 17:57 | MHC.CM.PN ---
CM received a call from [facility] attendance secretary regarding this pt. Mr. Arciniega is refusing to be d/c to [facility]. CM met with patient. Pt is upset with being d/c today. States he is not ready. States he has pain. Understands that he needs STR and PT, but [facility] Everything is moving too fast . CM assisted pt in calling [employer] to appeal his discharge. Pt spoke to sales representative meats. Case # for appeal [id number]. Ambulance arrived and were dismissed. CM spoke with HCP/ Carla Arciniega who agrees with her and feels that tomorrow would be better for her to transfer in the day time. Pt is agreeable to this d/c plan. CM spoke with Shaunna at [facility], who understands and will hold pt bed. Noted in [employer]. Agreeable to transport at 12 noon tomorrow 09/21. CM updated Mary Alice CARVALHO and Dr. Coats. Dr. Camilo is in agreement for d/c tomorrow. CM to follow for d/c needs.
[2020-09-20] MEDS: cefTRIAXone sodium 1 GM in 0.9 % Sodium Chloride 50 ML IV (19:59)
[2020-09-20] MEDS: Tamsulosin HCL 0.4 MG CAPSULE PO (20:00)
[2020-09-21] MEDS: ALPRAZolam 0.25 MG TABLET PO (00:19)
[2020-09-21 02:54] VITALS: RESP 18
[2020-09-21] MEDS: HYDROmorphone HCl 0.5 MG/0.5 ML SYRINGE IVPUSH ×2 (02:54→12:26)
[2020-09-21 03:15] VITALS: BP 160/84; PULSE 64; RESP 18; TEMP 36.6; O2SAT 94
--- NOTE | 2020-09-21 04:56 | PC.NURSE ---
CARE ASSUMED 23:15...AWAKE..ALERT..ORIENTED X3...MILDLY ANXIOUS...MICHELLE YELLOW URINE...PER REPORT PATIENT NAUSEOUS AND VOMITED SMALL AMOUNT BILE AT SHIFT CHANGE...HOSPITALIST UPDATED...ZOFRAN GIVEN WITH RELIEF OF NAUSEA...REQUESTED/RECEIVED PRN XANAX FOR ANXIETY AND SLEEP WITH EFFECT...AWAKE 3AM...C/O GENERALIZED BODY PAIN... I FELL AT HOME ...RATED 8/10...MEDICATED WITH PRN DILAUDID...POSITIONED IN BED..DOZING AFTERWARDS...BRIEFLY AWAKE 04:30..STATED I'M FINE THEN DOZING
[2020-09-21] MEDS: Enoxaparin Sodium 40 MG/0.4 ML SYRINGE SUBCUT (06:19)
[2020-09-21 07:10] VITALS: BP 178/81; PULSE 66; RESP 17; TEMP 36.6; O2SAT 94
[2020-09-21] MEDS: Finasteride 5 MG TABLET PO (07:22)
[2020-09-21 07:23] VITALS: BP 178/81
[2020-09-21] MEDS: Losartan Potassium 50 MG TABLET 100 MG PO (07:23)
[2020-09-21] MEDS: Propranolol HCL LA 80 MG CAP.SA.24H PO (07:23)
[2020-09-21] MEDS: Gabapentin 300 MG CAPSULE PO (07:23)
[2020-09-21] MEDS: amLODIPine Besylate 5 MG TABLET PO (07:23)
[2020-09-21] MEDS: Escitalopram Oxalate 10 MG TABLET PO (07:23)
[2020-09-21] MEDS: busPIRone HCl 10 MG TABLET PO (07:24)
[2020-09-21] MEDS: Lidocaine 4 % Patch ADH..PATCH 1 PATCH TRANSDERMA (07:24)
[2020-09-21] MEDS: 0.9 % Sodium Chloride Flush 3 ML SYRINGE IVFLUSH (07:28)
--- NOTE | 2020-09-21 08:37 | MHC.CM.PN ---
Addendum entered by Joanne Durand 09/21/20 13:06: ARMANDO MET WITH PT WHO WAS CONCERNED ABOUT DISCHARGING. PT REPORTS HE SPOKE TO [employer] YESTERDAY AND THEY SAID HE SHOULD NOT MOVE AN INCH UNTIL THEY CALL . CM EXPLAINED THAT HE HAD SPOKEN TO [facility] BECAUSE HE DID NOT WANT TO DC HOWEVER SHORTLY AFTER THAT HE SPOKE TO THE EVENING CM AND TOLD HER HE WAS PLANNING TO GO TO THE STR TODAY AT 1200 HOURS. CM ALSO REMINDED THE PT THAT T/W SPOKE TO HIM THIS MORNING AND HE AGAIN SAID HE WOULD BE READY TO GO AT 1200 HOURS. PT REPORTED HE KNOWS HE HAS TO DISCHARGE BUT HE IS WORRIED ABOUT TRANSPORT BECAUSE HE IS IN PAIN WHEN HE MOVES. PTS NURSE WHO WAS AT BEDSIDE REMINDED THE PT THAT HE HAD RECEIVED HIS PAIN MEDICATION ABOUT 6 MINUTES PRIOR. CM ASSURED THE PT THAT THE SNF HAD HIS DISCHARGE PRESCRIPTIONS AND INSTRUCTIONS AND WOULD BE ABLE TO PROVIDE PAIN RELIEF ONCE HE WAS THERE. PT REPORTED HE WOULD LIKE TO HAVE THE AMBULANCE CREW COME IN THE ROOM AND SEE HOW IT GOES . PT AWARE IF THE PAIN IS INTOLERABLE, HE CAN TELL CREW AND STOP THE TRANSFER. BLS CREW SUCCESSFULLY TRANSFERRED PT TO [facility]. PT DID NOT COMPLAIN OF ANY PAIN DURING TRANSFER. PT THANKED STAFF AND BLS CREW AND IS CURRENTLY ON HIS WAY TO [facility] FOR STR. Original Note: CM MET WITH PT THIS MORNING TO CONFIRM DC PLAN. PT REPORTS BEING AGREEABLE TO DC TODAY AT 1200 HOURS TO [facility]. PT WILL BE TRANSPORTED VIA BLS
[2020-09-21 09:05] VITALS: BP 166/80
[2020-09-21 11:09] VITALS: BP 151/70; PULSE 60; RESP 18; TEMP 36.3; O2SAT 97
[2020-09-21 11:35] LABS: Magnesium 1.9 mg/dL (1.6-2.6)
== END 2020-09-21 01:00 | disposition skilled nursing facility (03) | DRG 690 ==
LOC: HO.ED 17:49 → HO.EDOVER 23:15 → HO.IMC 09-19 07:15
PROVIDERS: Physician Assistant; Admitting Provider Hospitalist; Emergency Provider Emergency Medicine; Visit Provider Internal Medicine
DX: N39.0 Urinary tract infection, site not specified (principal); L89.309 Pressure ulcer of unspecified buttock, unspecified stage; I10 Essential (primary) hypertension; R33.9 Retention of urine, unspecified; G89.29 Other chronic pain; E78.5 Hyperlipidemia, unspecified; B95.61 Methicillin susceptible Staphylococcus aureus infection as the cause of diseases classified elsewhere; N35.919 Unspecified urethral stricture, male, unspecified site; Z96.0 Presence of urogenital implants; R29.6 Repeated falls; Z20.822 Contact with and (suspected) exposure to COVID-19; Z91.81 History of falling; Z79.899 Other long term (current) drug therapy
CPT/HCPCS: 36415; 70450; 71250; 72125; 74176; 80048; 80076; 81001; 82306; 82550; 83605; 83735; 83880; 84484; 85025; 87040; 87086; 87088; 87186; 87635; 93005; 96361; 96365; 97162; 97167; 97530; 99285; J0696; J1170; J1650; J2405

== ENCOUNTER 2023-07-29 11:33 | Inpatient (IN) | payer OTHER, MEDICARE, SELFPAY ==
[2023-07-29] VITALS (12 sets, daily range): BP systolic 102–177; BP diastolic 53–74; PULSE 81–105; RESP 16–22; TEMP 36.3–36.5; O2SAT 82–98; BMI 41.7
--- NOTE | 2023-07-29 | ECG_ITS ---
Test Reason : DESAT Blood Pressure : / mmHG Vent. Rate : 078 BPM Atrial Rate : 000 BPM P-R Int : 000 ms QRS Dur : 114 ms QT Int : 390 ms P-R-T Axes : 000 -42 036 degrees QTc Int : 444 ms Atrial fibrillation Left axis deviation Inferior infarct , age undetermined Anterior infarct , age undetermined Abnormal ECG When compared with ECG of 18-SEP-2020 14:41, Atrial fibrillation has replaced Sinus rhythm Referred By: Generic ED Physician Electronically Signed By:IRLANDA ZABALA
--- NOTE | ~2023-07-29 | XR_ITS ---
EXAMINATION: XR CHEST CLINICAL INFORMATION: Adiel Arciniega date of 1945 COMPARISON: Previous chest CT from 2020 and chest x-ray from 2020 TECHNIQUE: Frontal view of the chest was obtained. FINDINGS: The cardiac silhouette is enlarged but stable. There is question of central left bronchial wall thickening and small perihilar and lower lobe infiltrate. Leading of the left lateral costophrenic angle questionable for prominent epicardial fat versus small left pleural effusion. The right lung is clear. No right pleural effusion. No pneumothorax. XR/XR chest 1V IMPRESSION: Stable enlargement of the cardiac silhouette. Question left lung bronchial wall thickening and infiltrate. Cameron small left pleural effusion versus prominent epicardial fat.
--- NOTE | ~2023-07-29 | CT_ITS ---
EXAMINATION: CT HEAD WITHOUT CONTRAST CLINICAL INFORMATION: Encephalopathy. COMPARISON: CT head from 09/18/2020. TECHNIQUE: Contiguous axial imaging was performed from the skull base to vertex without intravenous administration of contrast. This CT examination was performed using dose optimization techniques as appropriate, variously including the following: *Automated exposure control. *Adjustment of mA and/or kV according to patient size (this includes techniques or standardized protocols for targeted exams where dose is matched to indication/reason for exam; i.e. extremities or head). *Use of iterative reconstruction technique. DLP: 993 mGy-cm FINDINGS: There is no evidence of acute intracranial hemorrhage or edematous territorial infarction. Chronic lacunar infarcts of the left caudate head and internal capsule. No additional loss of west-white matter differentiation. Scattered and partially confluent hypoattenuation in the periventricular and deep white matter are consistent with moderate microangiopathy. Proportional prominence of the ventricles and sulcal spaces without evidence of obstructive hydrocephalus. No abnormal mass effect or midline shift. No extra-axial fluid collections. No acute soft tissue or osseous abnormalities. Mild mucosal thickening of the paranasal sinuses. Moderate leftward nasal septal deviation with spurring. The mastoid air cells and middle ear cavities are clear. CT/CT head/brain wo IV con IMPRESSION: 1. No evidence of acute intracranial hemorrhage or edematous territorial infarction. 2. Moderate underlying microangiopathy and generalized cerebral volume loss. Chronic lacunar infarcts of the left caudate head and internal capsule.
--- NOTE | ~2023-07-29 | US_ITS ---
EXAMINATION: US RETROPERITONEAL LIMITED (RENAL ONLY) CLINICAL INFORMATION: Left renal mass, assess for cyst versus solid mass. COMPARISON: CT abdomen and pelvis 07/29/2023. X-ray abdomen 07/06/2020. Ultrasound renal with Doppler 07/19/2016. TECHNIQUE: Real-time imaging of the left kidney. FINDINGS: Extremely limited evaluation. The kidney is not well evaluated. There is a partially visualized cystic lesion measuring 4.2 x 5.3 x 4.6 cm US/US renal LT IMPRESSION: 1. Very limited evaluation of the left kidney. 2. Partially visualized cystic lesion measuring 4.2 x 5.3 x 4.6 cm.
--- NOTE | ~2023-07-29 | CT_ITS ---
EXAMINATION: CT ABDOMEN AND PELVIS WITH CONTRAST CLINICAL INFORMATION: LLQ pain, right groin pain, r/o kidney stones, diverticulitis COMPARISON: CT abdomen pelvis 09/18/2020 TECHNIQUE: Multidetector volumetric images were obtained from the superior aspect of the liver through the pubic symphysis following administration 100 mL of Omnipaque 350 intravenous contrast. Sagittal and coronal reformatted images were obtained on the technologist's workstation. Oral contrast: No This CT examination was performed using dose optimization techniques as appropriate, variously including the following: *Automated exposure control *Adjustment of mA and/or kV according to patient size (this includes techniques or standardized protocols for targeted exams where dose is matched to indication/reason for exam; i.e. extremities or head) *Use of iterative reconstruction technique DLP: 1950 mGy-cm FINDINGS: LUNG BASES: The heart is enlarged. Bibasilar atelectasis/infiltrates are present. No pleural effusions. There is a tiny amount of pericardial fluid present increased when compared to 09/18/2020. LIVER, GALLBLADDER, AND BILIARY TREE: The liver is enlarged at 18.7 cm in greatest cephalocaudad dimension with decreased attenuation consistent with hepatic steatosis. No focal hepatic lesion or biliary ductal dilatation is present. The gallbladder contains multiple layering gallstones but is otherwise unremarkable with no evidence of pericholecystic inflammatory changes. PANCREAS: There is mild rounding of the pancreatic head with some minimal surrounding soft tissue edema new when comparison is made to the 2020 study. However, significant motion artifact is present limiting detail SPLEEN: Spleen is enlarged at 13.5 cm in greatest length. ADRENAL GLANDS: Unremarkable. KIDNEYS AND URETERS: The kidneys are normal in size, shape, and attenuation. No hydronephrosis, hydroureter, or calculi seen. No perinephric stranding. Bilateral benign Bosniak class I renal cysts are noted which require no additional imaging or follow-up. There is one mass in the left kidney measuring 3.2 x 4.6 x 3.6 cm (3:49) which does not have the characteristics of a benign cyst. This was present in 2020 with a maximal dimension of about 4 cm. Renal ultrasound is recommended to exclude a solid mass. BLADDER: Unremarkable. GASTROINTESTINAL TRACT: The small and large bowel are unremarkable. The appendix is not seen but there is no evidence of appendicitis evidence of appendicitis. ABDOMINAL WALL: No significant hernia is appreciated. LYMPH NODES: No retroperitoneal lymphadenopathy VASCULAR: Unremarkable. PELVIC VISCERA: There is marked BPH measuring 165 mL with normal-appearing seminal vesicles OSSEOUS STRUCTURES: Moderate degenerative changes are present throughout the spine. CT/CT abdomen pelvis w IV con IMPRESSION: 1. There is a question of some mild edema in the head of the pancreas but the exam is limited by motion artifact. Please correlate with serum lipase. 2. A definitive cause for the patient's left lower quadrant pain has not been found. 3. Incidental note made of an enlarged fatty liver, cholelithiasis, splenomegaly and marked BPH. 4. There is a left renal mass which does not have the characteristics of a benign cyst. While this may represent a hyperattenuating Bosniak class II cyst, renal ultrasound is recommended to exclude a solid mass. Fleischner guidelines were followed.
--- NOTE | 2023-07-29 11:50 | PC.NURSE ---
biba from [facility] d/t lower back pain x this am. started in left side - radiating towards right. no trauma noted. hx left sided sacral wound. denies numbness/tingling/incontinence. given tylenol at SNF w/o relief. pt also verbalizing increased swelling in LE x a few months - denies sob. 3+ pitting edema in LE bilaterally. slight crackles noted throughout. 86% on RA. pt placed on on 2L via NC. no sob/wob noted. pt sitting upright to promote patent airway.
--- NOTE | 2023-07-29 12:01 | PC.NURSE ---
pt desatting to 86% on RA. pt denies hx of asthma/copd. no sob/wob noted. pt repositioned upright to promote patent airway. no positive effect noted. pt placed on 2L via NC per provider ok - pt now resting at 95% via 2L NC. no sob/wob noted. respirations even/unlabored.
--- OUTSIDE RECORDS SUMMARY | 2023-07-29 12:06 | XMS_ITS | Continuity of Care Document ---
Author Organization [facility] Address [address] [place] [id number]- Care Team Providers Care Formula Maker Name Role Phone María New MD Primary Care Physician En[place] [facility] [place](s): 01/20/23 - 02/19/23 [facility] [address] [place] [phone]- [place] Allergies, Adverse Reactions, Alerts No Known Allergies Medications acetaminophen 325 mg oral tablet 650 mg, 2, tablet, By Mouth, Every 4 hours, PRN, Refills 0, Maintenance, as needed for fever/pain, 08/01/22 15:20:00 EDT, Partial fill upon patient request if the prescription is for a schedule II opioid drug. Start Date: 08/01/22 Status: Ordered albuterol-ipratropium 3 mg-0.5 mg/3 ml inhalation solution BAND Nebulizer, 4 times a day, 0 Refills, Maintenance, 02/05/23 10:46:00 EST, Inhalation Solution, Partial fill upon patient request if the prescription is for a schedule II opioid drug. Start Date: 02/05/23 Status: Ordered amLODIPine 5 mg oral tablet 5 mg, 1, tablet, By Mouth, Daily, HOLD FOR SBP<100 HR<60, Maintenance, 08/01/22 15:28:00 EDT,Partial fill upon patient request if the prescription is for a schedule II opioid drug. Start Date: 08/01/22 Status: Ordered apixaban 5 mg oral tablet 1 tablet = 5 mg, By Mouth, 2 times a day, Maintenance, 01/24/23 16:23:00 EST, Tablet, Partial fill upon patient request if the prescription is for a schedule II opioid drug. Start Date: 01/24/23 Status: Ordered Artificial Tears preserved solution 1 drops, Eyes, Both, Daily, PRN for dry eyes, Maintenance, 01/24/23 16:25:00 EST, Solution, Partialfill upon patient request if the prescription is for a schedule II opioid drug. Start Date: 01/24/23 Status: Ordered busPIRone 7.5 mg oral tablet 1 tablet = 7.5 mg, By Mouth, 2 times a day, 0 Refills, Maintenance, 08/01/22 15:53:00 EDT, Partial fill upon patient request if the prescription is for a schedule II opioid drug. Start Date: 08/01/22 Status: Ordered Cetaphil Moisturizing 1 application, Topically, Daily, Apply lotion to bilateral lower and upper extremities every day shift., 0 Refills, Maintenance, 08/01/22 15:55:00 EDT, Partial fill upon patient request if the prescription is for a schedule II opioid drug. Start Date: 08/01/22 Status: Ordered Dulcolax 10 mg rectal suppository 1 supp = 10 mg, Rectally, Daily, PRN as needed for constipation, IF NO RESULTS FROM _x_ MIRALAX BY NEXT SHIFT, Maintenance, 08/01/22 15:58:00 EDT, Suppository, Partial fill upon patient request if the prescription is for a schedule II opioid drug. Start Date: 08/01/22 Status: Ordered erythromycin 0.5% ophthalmic ointment 1 applicator, Eye, Right, 4 times a day, 0 Refills, Maintenance, 02/05/23 10:46:00 EST, Ophth Ointment, Partial fill upon patient request if the prescription is for a schedule II opioid drug. Start Date: 02/05/23 Status: Ordered finasteride 5 mg oral tablet 1 tablet = 5 mg, By Mouth, Daily, WEAR GLOVES WHEN HANDLING, Maintenance, 08/01/22 16:00:00 EDT, Tablet, Partial fill upon patient request if the prescription is for a schedule II opioid drug. Start Date: 08/01/22 Status: Ordered Fleet Enema 19 gm-7 gm rectal enema 118 mL, Rectally, Once, PRN as needed for constipation, IF NO RESULT FROM DULCOLAX WITHIN 2 HOURS, Maintenance, 08/01/22 16:01:00 EDT, Enema, Partial fill upon patient request if the prescription is for a schedule II opioid drug. Start Date: 08/01/22 Status: Ordered furosemide 40 mg oral tablet 40 mg, 1, tablet, By Mouth, Daily, Maintenance, 01/24/23 16:30:00 EST, Partial fill upon patient request if the prescription is for a schedule II opioid drug. Start Date: 01/24/23 Status: Ordered gabapentin 300 mg oral capsule 600 mg, By Mouth, Daily at bedtime, Refills 0, Maintenance, 02/05/23 10:24:00 EST, Partial fill upon patient request if the prescription is for a schedule II opioid drug. Start Date: 02/05/23 Status: Ordered lidocaine 5% topical cream 1 application, Topically, 4 times a day, Maintenance, 01/24/23 16:54:00 EST, Cream, Partial fill upon patient request if the prescription is for a schedule II opioid drug. Start Date: 01/24/23 Status: Ordered Mag-Ox 400 400 mg oral tablet 1 tablet = 400 mg, By Mouth, 2 times a day, 0 Refills, Maintenance, 08/01/22 16:10:00 EDT, Partial fill upon patient request if the prescription is for a schedule II opioid drug. Start Date: 08/01/22 Status: Ordered melatonin 3 mg oral tablet 1 tablet = 3 mg, By Mouth, Daily at bedtime, for insomnia, Maintenance, 08/01/22 16:11:00 EDT, Partial fill upon patient request if the prescription is for a schedule II opioid drug. Start Date: 08/01/22 Status: Ordered metFORMIN 500 mg oral tablet 1 tablet = 500 mg, By Mouth, Daily, with meals, # 90 tablet, 0 Refills, Maintenance, 02/05/23 10:46:00 EST, Tablet, Partial fill upon patient request if the prescription is for a schedule II opioid drug. Start Date: 02/05/23 Status: Ordered metoprolol 50 mg oral tablet, extended release 150 mg, By Mouth, Daily, Refills 0, Maintenance, 02/05/23 10:24:00 EST, Partial fill upon patient request if the prescription is for a schedule II opioid drug. Start Date: 02/05/23 Status: Ordered MiraLax Powder 1 pack/packet = 17 Gm, By Mouth, Daily, PRN Constipation, 0 Refills, Maintenance, 08/05/22 14:45:00EDT, Powder, Partial fill upon patient request if the prescription is for a schedule II opioid drug. Start Date: 08/05/22 Status: Ordered MOM Liquid 30 mL, By Mouth, Daily at bedtime, PRN as needed for constipation, if NO Bm in 3 days, 0 Refills, Maintenance, 08/01/22 16:13:00 EDT, Partial fill upon patient request if the prescription is for a schedule II opioid drug. Start Date: 08/01/22 Status: Ordered Muscle Rub 10%-15% topical cream 1 application, Topically, Every 8 hours, PRN Pain , Moderate, Maintenance, 08/01/22 16:15:00 EDT, Partial fill upon patient request if the prescription is for a schedule II opioid drug. Start Date: 08/01/22 Status: Ordered olanzapine 2.5 mg oral tablet 2.5 mg, 1, tablet, By Mouth, Daily at bedtime, Refills 0, Maintenance, 02/05/23 10:24:00 EST, Partial fill upon patient request if the prescription is for a schedule II opioid drug. Start Date: 02/05/23 Status: Ordered Remedy Phytoplex Z-Guard paste 1 application, Topically, 3 times a day, Apply to buttock topically every day and evening shift forMASD, Maintenance, 08/01/22 16:23:00 EDT, Partial fill upon patient request if the prescription is for a schedule II opioid drug. Start Date: 08/01/22 Status: Ordered Senna Plus 50 mg-8.6 mg oral tablet 2 tablet, By Mouth, Daily, PRN Constipation, Maintenance, 01/24/23 16:50:00 EST, Tablet, Partial fill upon patient request if the prescription is for a schedule II opioid drug. Start Date: 01/24/23 Status: Ordered simethicone 80 mg oral tablet, chewable 80 mg, 1, tablet, Chew, Every 12 hours, PRN, Refills 0, Maintenance, Gas, 08/01/22 16:28:00 EDT, Partial fill upon patient request if the prescription is for a schedule II opioid drug. Start Date: 08/01/22 Status: Ordered tamsulosin 0.4 mg oral capsule 0.8 mg, 2, capsule, By Mouth, Daily, Maintenance, 08/01/22 16:04:00 EDT, Partial fill upon patient request if the prescription is for a schedule II opioid drug. Start Date: 08/01/22 Status: Ordered Zoloft 25 mg oral tablet = 75 mg, By Mouth, Daily, 0 Refills, Maintenance, 02/05/23 10:24:00 EST, Tablet, Partial fill upon patient request if the prescription is for a schedule II opioid drug. Start Date: 02/05/23 Status: Ordered Problem List Condition Confirmation Course Effective Dates Status Health St [facility] Informant Obese class II Confirmed Active Social History Social History Type Response Smoking Status Never (less than 100 in lifetime) entered on: 01/29/23 Sex Patient Care team information Care Team Personnel Name: Guadalupe Marie RN Position: [facility] RN Member Role: Primary Care Nurse Name: Melida Sabillon RN Position: [facility] RN Member Role: Primary Care Nurse Name: Barry STALEY, Cristiana Escalante Position: [facility] Associate Professional Member Role: Primary Care Nurse Address: Address: [address] [place] [id number]- Name: Gen Henry MD Position: [facility] Renal MD Member Role: Lifetime Consulting Physician Address: Address: [address] [place] [address], [address] [address]- Name: Ben Mcdowell RN Position: [facility] RN Member Role: Primary Care Nurse Name: Shanae Zamudio Position: [facility] RN Member Role: Primary Care Nurse Name: Shaina Gonzalez RN Position: [facility] RN Member Role: Primary Care Nurse Name: Disha Carlos Position: [facility] RN Supv Member Role: Primary Care Nurse Name: Sandra Vasquez RN Position: [facility] ED RN W/OE and Tasks Member Role: Primary Care Nurse Name: Alfredo Rivera RN Position: [facility] ED RN W/OE and Tasks Member Role: Primary Care Nurse Name: Vicenta Guzmán RN Position: [facility] RN Member Role: Primary Care Nurse Name: Vale Boyd RN Position: [facility] AMB Nurse Member Role: Primary Care Nurse Name: Disha Major RN Position: [facility] 3D Artist Member Role: Primary Care Nurse Name: Deepti James RN Position: [facility] RN Member Role: Primary Care Nurse Name: María New MD Position: Reference Physician Member Role: PCP Address: Address: [address] [place], [place] [id number] [address]- Name: Cristy Swartz RN Position: [facility] RN Member Role: Primary Care Nurse Name: Valentin Shearer RN Position: S RN Member Role: Primary Care Nurse Care Team Related Persons Name: KELLY TAPIA Address: [address] [place] [address]
--- OUTSIDE RECORDS SUMMARY | 2023-07-29 12:06 | XMS_ITS | Continuity of Care Document ---
Author Organization [facility] Address [address] [address]- Care Team Providers Care Medicaid Billing Specialist Name Role Phone Virgen VALLE, María Castaneda [id number] - 05/11/23 [facility] [address] [address]- Attending Physician: Aleyda Gibbons Admitting Physician: Aleyda Gibbons Referring Physician: AdmtrAleyda Allergies, Adverse Reactions, Alerts No Known Allergies [...] Team Personnel Name: Guadalupe Marie RN Position: [facility] RN Member Role: Primary Care Nurse Name: Melida Sabillon RN Position: [facility] RN Member Role: Primary Care Nurse Name: Cristiana Reddy NP Position: [facility] Associate Professional Member Role: Primary Care Nurse Address: Address: [address] [place] [address]- Name: Gen eHnry MD Position: [facility] Renal MD Member Role: Lifetime Consulting Physician Address: Address: [address] [place] [address], [address] [id number] Name: Shanae Zamudio Position: [facility] RN Member Role: Primary Care Nurse Name: Shaina Gonzalez RN Position: [facility] RN Member Role: Primary Care Nurse Name: Disha Carlos Position: [facility] RN Supv Member Role: Primary Care Nurse Name: Sandra Vasquez RN Position: [facility] ED RN W/OE and Tasks Member Role: Primary Care Nurse Name: Alfredo Rivera RN Position: [facility] ED RN W/OE and Tasks Member Role: Primary Care Nurse Name: Vicenta Guzmán RN Position: [facility] RN Member Role: Primary Care Nurse Name: Vale Boyd RN Position: [facility] AMB Nurse Member Role: Primary Care Nurse Name: Disha Major RN Position: [facility] Hospital Learning And Development Administrator Member Role: Primary Care Nurse Name: Deepti James RN Position: [facility] RN Member Role: Primary Care Nurse Name: María New MD Position: Reference Physician Member Role: PCP Address: Address: [address] [place] [address] [address] [place] [address]- Name: Cristy Swartz RN Position: S RN Member Role: Primary Care Nurse Name: Valentin Shearer RN Position: S RN Member Role: Primary Care Nurse Care Team Related Persons Name: REGINA KELLY Address: [address] [place] [address]
--- OUTSIDE RECORDS SUMMARY | 2023-07-29 12:06 | XMS_ITS | Continuity of Care Document ---
Author Organization [facility] ter Address [address] [place] [id number] Care Team Providers Care Cna Pct Name Role Phone María New MD Primary Care Physician Encounter [facility] [place](s): 07/31/22 - 08/05/[address] [address]- Encounter Diagnosis Atrial fibrillation(Final) - 07/31/22 Discharge Disposition: A-Transfer SNF Attending Physician: Derrick Mckeon MD Admitting Physician: Carlo Gupta MD Referring Physician: Not on Staff, Referring MD Allergies, Adverse Reactions, Alerts No Known Allergies Medications acetaminophen 325 mg oral tablet 650 mg, 2, tablet, By Mouth, Every 4 hours, PRN, not to exceed 3000 mg/day, Refills 0, Maintenance,Pain , Mild/temp 100 or >, 08/01/22 15:20:00 EDT, Partial fill upon patient request if the prescription is for a schedule II opioid drug. Start Date: 08/01/22 Status: Ordered amLODIPine 5 mg oral tablet 5 mg, 1, tablet, By Mouth, Daily, HOLD FOR SBP<100 HR<60, Maintenance, 08/01/22 15:28:00 EDT,Partial fill upon patient request if the prescription is for a schedule II opioid drug. Start Date: 08/01/22 Status: Ordered apixaban = 5 mg, By Mouth, 2 times a day, 0 Refills, Maintenance, 08/05/22 14:44:00 EDT, Tablet, Partial fill upon patient request if the prescription is for a schedule II opioid drug. Start Date: 08/05/22 Status: Ordered Artificial Tears PF Ophth 1 drop, Eyes, Both, Daily, PRN as needed for dry eyes, 0 Refills, Maintenance, 08/01/22 15:35:00 EDT, Partial fill upon patient request if the prescription is for a schedule II opioid drug. Start Date: 08/01/22 Status: Ordered Biotene Mouthwash oral solution 15 mL, By Mouth, Every 8 hours, PRN dry mouth/oral comfort, Maintenance, 08/01/22 15:46:00 EDT, Partial fill upon patient request if the prescription is for a schedule II opioid drug. Start Date: 08/01/22 Status: Ordered busPIRone 5 mg oral tablet 5 mg, 1, tablet, By Mouth, 2 times a day, for Anxiety. Give with 7.5mg tab for td=12.5mg, Refills 0, Maintenance, 08/01/22 15:52:00 EDT, Partial fill upon patient request if the prescription is for aschedule II opioid drug. Start Date: 08/01/22 Status: Ordered busPIRone 7.5 mg oral tablet 1 tablet = 7.5 mg, By Mouth, 2 times a day, for anxiety. Give with 5 mg tab for td=12.5mg, 0 Refills, Maintenance, 08/01/22 15:53:00 EDT, Partial [...] opioid drug. Start Date: 08/01/22 Status: Ordered finasteride 5 mg oral tablet [...] opioid drug. Start Date: 08/01/22 Status: Ordered gabapentin 300 mg oral capsule 300 mg, 1, capsule, By Mouth, Daily, Refills 0, Maintenance, 08/01/22 16:05:00 EDT, Partial fill upon patient request if the prescription is for a schedule II opioid drug. Start Date: 08/01/22 Status: Ordered gabapentin 300 mg oral capsule 300 mg, Capsule, By Mouth, 08/05/22 9:00:00 EDT Start Date: 08/05/22 Stop Date: 08/05/22 Status: Completed gabapentin 800 mg oral tablet 1 tablet = 800 mg, By Mouth, Daily at bedtime, 0 Refills, Maintenance, 08/01/22 16:06:00 EDT, Partial fill upon patient request if the prescription is for a schedule II opioid drug. Start Date: 08/01/22 Status: Ordered lidocaine 4% topical cream 1 application, Topically, Daily at bedtime, Apply q evening shift until seen by risk lead 10/11/22, Maintenance, 08/01/22 16:08:00 EDT, Partial fill upon patient request if the prescription is fora schedule II opioid drug. Start Date: 08/01/22 Status: Ordered Mag-Ox 400 400 mg oral tablet 1 tablet = 400 mg, By Mouth, 2 times a day, 0 Refills, Maintenance, 08/01/22 16:10:00 EDT, Partial fill upon patient request if the prescription is for a schedule II opioid drug. Start Date: 08/01/22 Status: Ordered melatonin 3 mg oral tablet 1 tablet = 3 mg, By Mouth, Daily at bedtime, for insomnia, # 30 tablet, Maintenance, 08/01/22 16:11:00 EDT, Partial fill upon patient request if the prescription is for a schedule II opioid drug. Start Date: 08/01/22 Status: Ordered metoprolol 100 mg oral tablet, extended release 100 mg, By Mouth, Daily, Refills 0, Maintenance, 08/05/22 14:44:00 EDT, Partial fill upon patient request if the prescription is for a schedule II opioid drug. Start Date: 08/05/22 Status: Ordered metoprolol 100 mg oral tablet, extended release 100 mg, XL Tablet, By Mouth, 08/05/22 9:00:00 EDT Start Date: 08/05/22 Stop Date: 08/05/22 Status: Completed MiraLax Powder 1 pack/packet = 17 Gm, [...] opioid drug. Start Date: 08/01/22 Status: Ordered nalOXONE 0.4 mg/mL injectable solution = 0.4 mg, Intramuscular, Once, may be repeated every 2-3 min until a response is obtained, Maintenance, 08/01/22 16:17:00 EDT, Partial fill upon patient request if the prescription is for a schedule II opioid drug. Start Date: 08/01/22 Status: Ordered nitroglycerin 0.4 mg sublingual tablet 1 tablet = 0.4 mg, Sublingual, Once, End Date 08/01/22, 0 Refills, Maintenance, 08/01/22 16:21:00 EDT, Partial fill upon patient request if the prescription is for a schedule II opioid drug. Start Date: 08/01/22 Status: Ordered oxyCODONE 5 mg oral tablet 5 mg, 1, tablet, By Mouth, Every 8 hours, PRN, Refills 0, Tot. Refills 0, Maintenance, Pain , Moderate, 08/01/22 16:22:00 EDT, Partial fill upon patient request if the prescription is for a schedule II opioid drug. Start Date: 08/01/22 Status: Ordered oxyCODONE 5 mg oral tablet 5 mg, Tablet, By Mouth, Every 6 hours, PRN for Pain , Severe, STAT, 08/01/22 6:40:00 EDT Start Date: 08/01/22 Stop Date: 08/06/22 Status: Discontinued Remedy Phytoplex Z-Guard paste 1 application, Topically, 2 times a day, Apply to buttock topically every day and evening shift forMASD, Maintenance, 08/01/22 16:23:00 EDT, Partial fill upon patient request if the prescription is for a schedule II opioid drug. Start Date: 08/01/22 Status: Ordered Senna Plus 50 mg-8.6 mg oral tablet 2 tablet, By Mouth, Daily, PRN Constipation, 0 Refills, Maintenance, 08/01/22 16:27:00 EDT, Partialfill upon patient request if the prescription is for a schedule II opioid drug. Start Date: 08/01/22 Status: Ordered simethicone 80 mg oral tablet, chewable 80 mg, 1, tablet, Chew, Every 12 hours, PRN, # 12 tablet, Refills 0, Maintenance, Gas, 08/01/22 16:28:00 EDT, Partial fill upon patient request if the prescription is for a schedule II opioid drug. Start Date: 08/01/22 Status: Ordered tamsulosin 0.4 mg oral capsule 0.8 mg, 2, capsule, By Mouth, Daily, Maintenance, 08/01/22 16:04:00 EDT, Partial fill upon patient request if the prescription is for a schedule II opioid drug. Start Date: 08/01/22 Status: Ordered traZODone 50 mg oral tablet 50 mg, 1, tablet, By Mouth, Daily at bedtime, # 30 tablet, Refills 0, Maintenance, 08/01/22 16:30:00 EDT, Partial fill upon patient request if the prescription is for a schedule II opioid drug. Start Date: 08/01/22 Status: Ordered Xanax 0.25 mg oral tablet 0.25 mg, 1, tablet, By Mouth, Daily at bedtime, Refills 0, Maintenance, 08/01/22 16:30:00 EDT, Partial fill upon patient request if the prescription is for a schedule II opioid drug. Start Date: 08/01/22 Status: Ordered Xanax 0.5 mg oral tablet 0.5 mg, 1, tablet, By Mouth, Daily in AM, Refills 0, Maintenance, 08/01/22 16:33:00 EDT, Partial fill upon patient request if the prescription is for a schedule II opioid drug. Start Date: 08/01/22 Status: Ordered Zoloft 100 mg oral tablet 1 tablet = 100 mg, By Mouth, Daily in AM, Maintenance, 08/01/22 16:33:00 EDT, Partial fill upon patient request if the prescription is for a schedule II opioid drug. Start Date: 08/01/22 Status: Ordered Problem List Condition Confirmation Course Effective Dates Status Health St atus Informant Obese class II Confirmed Active Results Radiology Reports * Exam Date Time Procedure Performing Provider Status 08/05/22 12:44 PM US Retroperitoneum Comp Marcelle Wasserman; Auth (Verified) Notes: (US Retroperitoneum Comp) Reason For Exam: Mass RESULT: US Retroperitoneum Comp US Retroperitoneum Comp INDICATION: Reason: Mass; Clinical Question(s): Pseudocyst; Order Comment:. COMPARISON: None FINDINGS: Right kidney: 12 cm. 2.1 cm exophytic hypoechoic lesion from the lateral midportion. No stones or obstruction. Left kidney: 13 cm. 3.4 cm exophytic hypoechoic lesion lower pole. No stones or obstruction. Bladder: Normal. No stone, mass, wall thickening or debris. IMPRESSION: Bilateral hypoechoic lesions remain indeterminate by ultrasound criteria. Note that an exophytic lesion from the right upper pole was not seen. Recommend renal MRI without and with contrast for optimal characterization. An actionable message (Yellow) has been communicated via the [employer] system on 08/05/2022 1:40 PM, Message ID [id number]. WSN: [id number] Ordering Physician: Carson Arndt Dictated By: Mikel Nobles MD Dictated Date/Time: 08/05/22 1:40 pm Reviewed By: Mikel Nobles MD Signed By: Mikel Nobles MD Signed Date/Time: 08/05/22 1:40 pm Transcribed By: GARFIELD Transcribed Date/Time: 08/05/22 1:34 pm * Exam Date Time Procedure Performing Provider Status 08/03/22 11:[address] Abd/Pelvis W/ IV + Oral Contrast Viktoriya Ford; Shefali (Verified) Notes: (CT Abd/Pelvis W/ IV + Oral Contrast) Reason For Exam: Pain RESULT: CT Abd/Pelvis W/ IV + Oral Contrast CT Abd/Pelvis W/ IV + Oral Contrast Reason: Pain; Clinical Question(s): Diverticulitis; Order Comment: TECHNIQUE: Spiral CT through the abdomen and pelvis with IV contrast formatted in 3 planes. 100 cc of Omnipaque 300 was administered intravenously. This study was performed with oral contrast. Weight-based protocol using automatic tube modulation was used to optimize exposure parameters. CTDIvol Body: 25.20 mGy, DLP Body: 1571 mGy*cm. COMPARISON: None. 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 Visualized Chest: Mild bibasilar atelectasis. No pleural effusion. Mild cardiomegaly. No pericardial effusion. Diaphragm: Normal. Liver: Normal. Gallbladder: Sludge within the otherwise normal-appearing gallbladder. Bile ducts: No biliary ductal dilation. Spleen: Normal. Pancreas: Normal. Adrenal glands: Normal. Kidneys and ureters: No hydronephrosis, stones, or suspicious masses. Bilateral indeterminate renallesions measuring up to 2.5 cm in the right upper pole and 3.6 cm in the left lower pole. Consider further evaluation with a retroperitoneal ultrasound. Bladder: Normal. Reproductive organs: The prostate is enlarged, measuring up to 6.6 cm. Stomach, small bowel, and large bowel: The stomach is normal. The small bowel is normal in caliber,with no evidence of bowel obstruction. The rectum is normal. The colon is normal. Appendix: Normal. Peritoneum and retroperitoneum: No ascites or pneumoperitoneum. No omental or mesenteric lesions. Lymph nodes: No enlarged lymph nodes. Blood vessels: Mild vascular calcifications but no aneurysm. No evidence of venous thrombosis. Abdominal and pelvic wall: Mild gynecomastia. Small fat-containing left omental hernia.. Bones: No acute abnormality. Degenerative changes in spine. IMPRESSION: 1. No acute findings within the abdomen or pelvis. 2. Indeterminate renal lesions bilaterally measuring up to 2.5 cm on the right, and 3.6 cm the left. Consider further evaluation with nonemergent retroperitoneal ultrasound. WSN: [id number] Ordering Physician: Carson Arndt Dictated By: Marlo Castaneda MD Dictated Date/Time: 08/03/22 4:19 pm Reviewed By: Marlo Castaneda MD Signed By: Marlo Castaneda MD Signed Date/Time: 08/03/22 4:19 pm Transcribed By: GARFIELD Transcribed Date/Time: 08/03/22 4:14 pm * Exam Date Time Procedure Performing Provider Status 07/31/22 5:00 PM Chest 2 Views Frontal and Lat Brice Janet; Auth (Verified) Notes: (Chest 2 Views Frontal and Lat) Reason For Exam: Shortness of Breath RESULT: Chest 2 Views Frontal and Lat Chest 2 Views Frontal and Lat Hx of Present Illness: CP; Reason: Shortness of Breath; Clinical Question(s): CHF COMPARISON: 03/18/2016. FINDINGS: LINES AND TUBES: EKG leads project over the chest. LUNGS AND PLEURA: Clear lungs. Normal pulmonary vascularity. No pleural effusion. No pneumothorax. HEART, MEDIASTINUM AND SHAQUILLE: Heart is normal in size. Normal mediastinal and hilar contour. BONES AND SOFT TISSUES: No acute abnormality. IMPRESSION: No acute abnormality. WSN: [id number] Ordering Physician: Vance Cody Dictated By: Adele Haley MD Dictated Date/Time: 07/31/22 5:02 pm Reviewed By: Adele Haley MD Signed By: Adele Haley MD Signed Date/Time: 07/31/22 5:02 pm Transcribed By: GARFIELD Transcribed Date/Time: 07/31/22 5:01 pm Vital Signs Most recent to oldest [Reference Range]: 1 2 3 Height 187 cm (08/05/22 8:09 AM) 187 cm (08/04/22 7:41 AM) 187 cm (08/03/22 11:55 PM) Weight 136.5 kg (08/01/22 5:11 PM) Oxygen Saturation [94-100 %] 97 % (08/05/22 8:09 AM) 94 % (08/04/22 8:00 PM) 95 % (08/04/22 7:41 AM) Pulse Rate [55-90 bpm] 76 bpm (08/05/22 9:11 AM) 76 bpm (08/05/22 8:09 AM) 90 bpm (08/04/22 8:00 PM) Body Mass Index [18.5-24.99 kg/m2] 39.03 kg/m2 *>HHI* (08/01/22 5:11 PM) Blood Pressure [90-138/55-84 mm Hg] 118/57mm Hg (08/05/22 9:11 AM) 118/57mm Hg (08/05/22 8:09 AM) 127/87mm Hg (08/04/22 8:00 PM) Respiratory Rate [16-30 br/min] 16 br/min (08/05/22 12:56 PM) 16 br/min (08/05/22 11:56 AM) 16 br/min (08/05/22 9:30 AM) Temperature [96.8-100.4 DegF] 97.9 DegF (08/05/22 8:09 AM) 98.3 DegF (08/04/22 8:00 PM) 97.3 DegF (08/04/22 7:41 AM) Liters per Minute 2 L/min (08/05/22 8:09 AM) 2 L/min (08/04/22 8:00 PM) 2 L/min (08/04/22 7:41 AM) Mode of Delivery (Oxygen) Nasal cannula (08/05/22 8:09 AM) Nasal cannula (08/04/22 8:00 PM) Nasal cannula (08/04/22 7:41 AM) Blood pressure sites Arm, right (08/05/22 8:09 AM) Arm, right (08/04/22 8:00 PM) Arm, left (08/04/22 7:41 AM) Temperature Route Oral (08/05/22 8:09 AM) Oral (08/04/22 8:00 PM) Oral (08/04/22 7:41 AM) Weight Obtained Via Patient/family stated (08/01/22 5:11 PM) Admission evaluation note * Mor VALLE, Tri Cao: PERFORM, MODIFY Event Display: Admission Note Authored Date: Patient: ??KATHIE ARCINIEGA ? Age:??76 Years?Sex:??Male?:??1945?? 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 No SOB. 1 SL nitro givenat SNF. afib on monitor History of Present Illness Mr. Arciniega is a 76-year-old gentleman with a PMH of hypertrophic cardiomyopathy, HFpEF 65-70%, type II DM, CKD stage II, BPH, hypertension, anxiety, bipolar disorder, PTSD and frequent falls who presents to the ER with chest pain. ?? Patient reports substernal chest pain that occurred when he was picking up his desk which had fallen over after getting caught by chair.??States chest pain is pressure-like, nonradiating. States he was given a sublingual nitro that did not help, however also reports he had similar chest pain 1 month ago while seated and at that time sublingual nitro helped relief the pain completely. Has a history of hypertrophic cardiomyopathy but has not followed up with cardiology. Gets his care at the [facility]. Last echo 2017 showed EF 65-70%, hypertrophic cardiomyopathy. Currently denies??lightheadedness or dizziness, no nausea or vomiting or diaphoresis.?? Pain worsens with deep inspiration.?? Does not have lower extremity pain or swelling. Pain currently is less compared to arrival. States he has a knownhistory of atrial fibrillation for which he has not sought care. Spoke with Carla who states he has had chest pain in the past but has not sought care for it. ?? On arrival to the ER heart rate 102, RR 20, BP 148/75, 95% on room air.?? Found to have atrial fibrillation.?? Labs showed WBC 14.4, potassium 5.8, glucose 193, creatinine 1.1, unremarkable LFTs, NT proBNP 372, troponin 16 then 15.?? Chest x-ray showed low lung volumes, enlarged cardiac silhouette, no pleural effusions, no focal consolidation.?? EKG shows atrial fibrillation with ventricular rate 104, no ST elevations or depressions, Q waves in V2 to V4 not present on EKG in 2017, normal intervals. He was given calcium gluconate and Lokelma and Tylenol. Admitted for hyperkalemia, new A fib. Review of Systems All systems reviewed and negative except as indicated in HPI. Objective Vital Signs?? Temperature: 98 DegF (07/31/22 20:00:00) Temperature Route: Oral (07/31/22 20:00:00) Pulse Rate:??104 bpm??High (07/31/22 20:00:00) Respiratory Rate: 18 br/min (07/31/22 20:00:00) Systolic Blood Pressure:??146 mm Hg??High (07/31/22 20:00:00) Diastolic Blood Pressure: 67 mm Hg (07/31/22 20:00:00) Blood pressure sites: Arm, right (07/31/22 20:00:00) Mean Arterial Pressure: 99 mm Hg (07/31/22 13:03:00) Pulse Pressure: 79 mm Hg (07/31/22 20:00:00) Oxygen Saturation: 98 % (07/31/22 20:00:00) Mode of Delivery (Oxygen): Room air (07/31/22 20:00:00) Early Warning Score: 1 (07/31/22 20:27:32) ? Intake/Output? 07/31 19:22 07/31 07:00 07/30 07:00 07/29 07:00 07/28 07:00 ?? 07/31 22:51 07/31 22:51 07/31 06:59 07/30 06:59 07/29 06:59 Intake ? 50 ? 50 ?0 ?0 ?0 Output ?0 ?0 ?0 ?0 ?0 Net Total ? 50 ? 50 ?0 ?0 ?0 ? Physical Exam Constitutional: Alert, in no acute distress. Head EENT: Extraocular muscle movement intact.??Moist mucous membranes.?? Neck: Supple. No JVD. Respiratory: Clear to auscultation. No wheezing or crackles. No use of accessory muscles. Cardiovascular: S1S2 regular. No murmurs, rubs or gallops. Gastrointestinal: Abdomen soft, non-tender, non-distended. Normal bowel sounds. Genitourinary: No CVA tenderness. Extremities: No lower extremity pitting??edema. No cyanosis or clubbing. Neurologic: AAOx3, Speech normal. No focal neurological deficits. Skin: No rash. Psychiatric: Normal mood and affect Assessment/Plan 76-year-old gentleman with a PMH of hypertrophic cardiomyopathy, HFpEF 65-70%, type II DM, CKD stage II, BPH, hypertension, anxiety, bipolar disorder, PTSD and frequent falls who presents to the ER with chest pain. ?? Chest pain ??(R07.9) History of hypertrophic cardiomyopathy ??(Z86.79) Pressure like, pleuritic, nontender, occurred in the past at rest and currently after lifting a desk Multiple episodes of chest pain that is substernal and pressure like for which he has not sought care, at least one episode resolved with sublingual nitro 1 month ago,??and new Q waves on EKG compared to that of 2017, currently sublingual nitro not helping significantly Family history of brother who needed CABG Patient is high risk for CAD given hx of HTN, obesity, family hx - will order echo as patient has hx of hypertrophic cardiomyopathy??to evaluate for dynamic outflowtract obstruction and??WMAs - consult cardiology for further eval, stress test vs C - will continue home metoprolol - EKG, troponin PRN for chest pain - continue telemetry to??monitor for??fatal arrhythmias ?? Anxiety ??(F41.9) Bipolar disorder ??(F31.9) PTSD (post-traumatic stress disorder) ??(F43.10) - continue home risperidone and citalopram ?? Atrial fibrillation ??(I48.91) Longstanding paroxysmal - continue metoprolol ?? HTN (hypertension) ??(I10) - continue metoprolol ?? Hyperkalemia ??(E87.5) Patient states he was also on diuretics at home but does not remember the name, but he was taking oral KCl with it Elevated K likely 2/2 oral K - holding KCl - hyperkalemia medically managed - repeat BMP ?? Type 2 diabetes mellitus ??(E11.9) - SSI - goal 140-180 ?? Code status: full DVT ppx:??lovenox Diet: regular Dispo: floors ?? Total Visit Time: I personally spent a total of 80 minutes, including both [id number] and bca-argb-ei-face time on the date of the encounter, addressing the above diagnoses. Activities performed in this time include chart review, obtaining / reviewing history, performing amedically necessary evaluation, documentation and counseling. ?? Tri Juares MD ?? Histories Past Medical History/Problem List No problems documented. ? Past Surgical History No surgery history documented. ? Social History No social history documented. ? Family History No family history recorded. ? Medications Home Medications Citalopram (citalopram 20 mg oral tablet)?20?Milligram?1?tablet?By Mouth?Daily?for 30?Days Docusate?100?Milligram?By Mouth?Daily Metoprolol (metoprolol 25 mg oral tablet)?25?Milligram?By Mouth?2 times a day Midodrine (midodrine 2.5 mg oral tablet)?10?Milligram?By Mouth?3 times a day Risperidone (risperiDONE 0.25 mg oral tablet)?0.25?Milligram?1?tablet?By Mouth?Daily?for 30?Days ? Inpatient Medications Medications (8) Active SCHEDULED: (2) Enoxaparin 40 mg Inj (Enoxaparin Inj) ??40 mg 0.4 mL, Subcutaneous Injection, Daily NaCl 0.9% Flush 3ml (NaCL 0.9% Flush) ??3 mL, IV Push, Every 8 hours CONTINUOUS: (0) PRN: (6) Acetaminophen 325 mg Tablet (Acetaminophen Tablet) ??650 mg, By Mouth, Every 4 hours Melatonin 3 mg Tablet (Melatonin Tablet) ??3 mg, By Mouth, Daily at bedtime NaCl 0.9% Flush 3ml (NaCL 0.9% Flush) ??3 mL, IV Push, Every 8 hours Polyethylene Glycol 17 Gm Powder (MiraLax Powder) ??17 Gm 1 pack/packet, By Mouth, Daily Senna 8.6 mg / Docusate 50 mg tablet (Docusate/Senna Tablet) ??1 tablet, By Mouth, 2 times a day Simethicone 80 mg Chewable Tablet (Simethicone Tablet) ??80 mg, Chew, 3 times a day ? Results Recent Labs BLOOD COUNT & DIFF WBC 14.4 k/mm3 (High)?? 07/31/2022 14:45 RBC 5.26 m/mm3 ()?? 07/31/2022 14:45 Hgb 16.5 Gm/dL ()?? 07/31/2022 14:45 Hct 49.9 % ()?? 07/31/2022 14:45 MCV 94.9 femtoliters (High)?? 07/31/2022 14:45 MCH 31.4 pg ()?? 07/31/2022 14:45 MCHC 33.1 g/dL ()?? 07/31/2022 14:45 Platelet Count 164 k/mm3 ()?? 07/31/2022 14:45 RDW-SD 45.1 femtoliters ()?? 07/31/2022 14:45 MPV 10.5 femtoliters ()?? 07/31/2022 14:45 Nucleated RBC (Automated) 0.0 #/100 WBC'S ()?? 07/31/2022 14:45 Abs. NRBC 0.0 k/mm3 ()?? 07/31/2022 14:45 Abs. Neut 12.1 k/mm3 (High)?? 07/31/2022 14:45 Abs. Lymph 1.1 k/mm3 ()?? 07/31/2022 14:45 Abs. Fulton 1.1 k/mm3 ()?? 07/31/2022 14:45 Abs. Eo 0.1 k/mm3 ()?? 07/31/2022 14:45 Abs. Baso 0.0 k/mm3 ()?? 07/31/2022 14:45 Neut % 83.9 % (High)?? 07/31/2022 14:45 Lymph % 7.3 % (Low)?? 07/31/2022 14:45 Fulton % 7.5 % ()?? 07/31/2022 14:45 Eos % 0.7 % ()?? 07/31/2022 14:45 Baso % 0.3 % ()?? 07/31/2022 14:45 Imm Gran 0.3 % ()?? 07/31/2022 14:45 Abs. Imm Gran 0.0 k/mm3 ()?? 07/31/2022 14:45 ?? CARDIAC Nt-Probnp 372 pg/mL ()?? 07/31/2022 14:45 High Sensitivity Troponin (HSTnT) 15 ng/L ()?? 07/31/2022 18:17 ?? CHEM GENERAL Sodium 137 mmol/L ()?? 07/31/2022 14:45 Potassium 5.8 mmol/L (High)?? 07/31/2022 14:45 Chloride 101 mmol/L ()?? 07/31/2022 14:45 Bicarbonate Level 29 mmol/L ()?? 07/31/2022 14:45 Anion Gap 7 ()?? 07/31/2022 14:45 Glucose Level 193 mg/dL (High)?? 07/31/2022 14:45 BUN 15 mg/dL ()?? 07/31/2022 14:45 Creatinine-Blood 1.1 mg/dL ()?? 07/31/2022 14:45 Estimated GFR Creatinine 71 ML/MIN/1.73 M2 ()?? 07/31/2022 14:45 Calcium 9.8 mg/dL ()?? 07/31/2022 14:45 Protein, Total 6.6 Gm/dL ()?? 07/31/2022 14:45 Albumin 4.6 Gm/dL ()?? 07/31/2022 14:45 AG Ratio 2.3 ()?? 07/31/2022 14:45 Alkaline Phosphatase 123 units/L ()?? 07/31/2022 14:45 AST (SGOT) 23 units/L ()?? 07/31/2022 14:45 ALT (SGPT) 16 units/L ()?? 07/31/2022 14:45 Bilirubin, Total 0.8 mg/dL ()?? 07/31/2022 14:45 ?? COAG D-Dimer 0.64 mg/L FEU ()?? 07/31/2022 14:45 ?? VIROLOGY COVID-19 by RT-PCR NEGATIVE ()?? 07/31/2022 17:00 ? Blood Glucose Trend Glucose Level:??193 mg/dL??High (07/31/22 14:45:00) ? CBC, CBC w/Diff?? CBC?? Differential?? WBC:??14.4 k/mm3??High (14:45) Abs. Neut:??12.1 k/mm3??High (14:45) RBC: 5.26 m/mm3 (14:45) Abs. Lymph: 1.1 k/mm3 (14:45) Hct: 49.9 % (14:45) Abs. Fulton: 1.1 k/mm3 (14:45) RDW-SD: 45.1 femtoliters (14:45) Abs. Eo: 0.1 k/mm3 (14:45) Nucleated RBC (Automated): 0 #/100 WBC'S (14:45) Abs. Baso: 0 k/mm3 (14:45) Abs. NRBC: 0 k/mm3 (14:45) Neut %:??83.9 %??High (14:45) ?? Lymph %:??7.3 %??Low (14:45) ?? [place]on %: 7.5 % (14:45) ?? Eos %: 0.7 % (14:45) ?? Baso %: 0.3 % (14:45) ?? Imm Gran: 0.3 % (14:45) ?? Abs. Imm Gran: 0 k/mm3 (14:45) ? LFT Albumin: 4.6 Gm/dL (14:45) Alkaline Phosphatase: 123 units/L (14:45) ALT (SGPT): 16 units/L (14:45) AST (SGOT): 23 units/L (14:45) Bilirubin, Total: 0.8 mg/dL (14:45) ?? Urinalysis?? No qualifying data available. ?? Microbiology ?? COVID-19 (Novel Coronavirus), Rapid PCR?? Completed?? Source: Nasal Body Site: Nose Collected Dt/Tm: 07/31/2022 15:45 Last Updated Dt/Tm: 07/31/2022 18:54 ? Blood Gases?? No qualifying data available. ?? US Heart * Event Display: Echocardiogram - Complete Authored Date: [id number] Transthoracic Echocardiography Report (TTE) Patient Demographics Patient Name KATHIE ARCINIEGA Date of Study 08/02/2022 Corporate Gender Male Facility Race Ethnicity Date of 1945 Height: 72 inches Age 76 year(s) Weight: 321.88 pounds Accession Number [id number] BSA: 2.61 m2 Room Number [id number] BMI: 43.65 kg/m2 Referring Physician Mor Cao MD Interpreting Physician Danica Villalobos MD Maintenance Craftsman Tamara Sutherland RDCS Indications Chest pain. Clinical History Hypertension. HOCM. Severe obesity. Study Data Type of Study TTE procedure:Echo Complete-(Doppler, Colorflow) with Contrast. Procedure Information:Definity was administered by Tamara Sutherland RDCS. Study Date08/02/2022 Start Time: 10:27 AM Study Location: [facility] [place] Echo Study Status: Bedside Patient Status: Routine Technical Quality: Technically difficult due to body habitus. Blood Pressure:138/91 mmHg EKG: Indeterminate HR: 110 bpm Contrast Medium: Definity. Amount - 2 ml 2D Measurements LV Diastolic Dimension: 5.2 cm LV Systolic Dimension: 4.7 cm LV Septum Diastolic: 1.5 cm LV PW Diastolic: 1.5 cm AO Root Dimension: 4.1 cm LVOT Stroke Volume: 43.41 ml LVOT: 2.4 cm Stroke Volume Index16.63 ml/m2 Ascending Aorta:3.7 cm Cardiac Index:1.83 l/min/m2 Doppler Measurements AV Peak Velocity: 73.6 cm/s MV Peak E-Wave: 78.1 cm/s AV Peak Gradient: 2.17 mmHg AV Mean Gradient: 1 mmHg AV VTI:11.7 cm LVOT Peak Velocity: 61.8 cm/s LVOT VTI9.6 cm AV Area (Continuity):3.71 cm2 PV Peak Velocity: 66.6 cm/s PV Peak Gradient: 1.77 mmHg E' Septal Velocity: 9.68 cm/s E' Lateral Velocity: 12.1 cm/s E/Med E':[id number] E/Lat E':[id number] Cardiac Anatomy Left Ventricle/Interventricular Septum The left ventricular size is normal. There is moderate concentric left ventricular hypertrophy. The left ventricular ejection fraction is 55-60 %. No obvious wall motion abnormalities seen on limited views. Unable to assess diastolic function . Left Atrium/Interatrial Septum The left atrium is poorly visualized. Aortic Valve The aortic valve is probably trileaflet . There is no significant aortic regurgitation. There is no significant aortic stenosis. Mitral Valve The mitral valve is poorly visualized. The mitral valve is grossly normal. The mitral valve appears mildly calcified. There is no significant mitral regurgitation. There is no significant mitral stenosis. Aorta There is mild dilation of the aortic root and ascending aorta . Right Ventricle The right ventricle is poorly visualized. Right Atrium The right atrium is poorly visualized. Pulmonic Valve The pulmonic valve is poorly visualized. Tricuspid Valve The tricuspid valve is poorly visualized. Pumonary Artery An accurate pulmonary artery pressure could not be obtained. Venous Structures The inferior vena cava appears normal. Pericardium/Extracardiac There is no pericardial effusion. Summary Technically very difficult study even with IV Definity. The left ventricular size is normal. There is moderate concentric left ventricular hypertrophy. The left ventricular ejection fraction is 55-60 %. No obvious wall motion abnormalities seen on limited views. Unable to assess diastolic function . The right ventricle is poorly visualized. Comparison Comparison is made to the study of February 28, 2016. Present study very difficult images, inadequate for comparison. Signature * Event Display: Echocardiogram - Complete Authored Date: Cardiology * Event Display: Cardiac Rhythm Strips Authored Date: Hospital Progress note * Ben Mcdowell RN: PERFORM, SIGN, VERIFY Event Display: Progress Note Hospital Authored Date: Patient: KATHIE ARCINIEGA Age: 76 years Sex: Male : 1945 Associated Diagnoses: None Author: Ben Mcdowell RN Findings Problem Related to Alteration in Cardiac Function (new) : Alteration in Cardiac Function/new 08/05/2022 14:00 EDT Alteration in Cardiac Status Related to Chest pain Goals & Outcomes, Cardiac Status Pt will resume/maintain adequate cardiac output, Pt will resume/maintain adequate hemodynamic status, Pt will resume/maintain adequate respiratory function, Pt will resume/maintain intact neuro function, Pt will maintain adequate GI/ function appropriate for pt, Pt will maintain adequate nutrition status, Pt/caregiver will state understanding of diagnosis, Pt/caregiver will state strategies to reduce risk factors Cardiac Interventions Implemented Assess/monitor cardiac status BH Goals/Interventions, Cardiac Yes Cardiac, Problem Start 08/01/2022 18:25 Reviewed Plan with, Cardiac Status Patient Patient Progression, Cardiac Status Plan Initiation . Narrative/Incidental Alert and oriented. VSS. Pain controlled with PRN medicaiton. Went down for ultrasound this afternoon.. Discharge Information Case Management Discharge Plan : Case Management Discharge Plan Data 08/05/2022 14:44 EDT Discharge Level of Care at Discharge [facility] facility [facility]charge [facility] [place] Dis[facility] Transportation Arr[facility] [phone] Name of Agency #1 [facility] Categories #1 Physical Therapy, Senior Living Rehabilitation Discharge : Rehab Discharge Index 08/05/2022 8:47 EDT Comments on treatment indicated 76 y/o M adm c chest pain. PT for balance, strengthening, bed mobility, transfers c RW. Rec rehab. Full chart review completed Yes Plan of care PT Gait training, Transfer training, Therapeutic exercise, Functional Activities, Balance training, Neuromuscular education * Linda Zapata RN: PERFORM, SIGN, VERIFY Event Display: Progress Note Hospital Authored Date: Patient: KATHIE ARCINIEGA Age: 76 years Sex: Male : 1945 Associated Diagnoses: None Author: Linda Zapata RN Findings Problem Related to Alteration in Cardiac Function (new) : Alteration in Cardiac Function/new 08/05/2022 1:00 EDT Alteration in Cardiac Status Related to Chest pain Goals & Outcomes, Cardiac Status Pt will resume/maintain adequate cardiac output, Pt will resume/maintain adequate hemodynamic status, Pt will resume/maintain adequate respiratory function, Pt will resume/maintain intact neuro function, Pt will maintain adequate GI/ function appropriate for pt, Pt will maintain adequate nutrition status, Pt/caregiver will state understanding of diagnosis, Pt/caregiver will state strategies to reduce risk factors Cardiac Interventions Implemented Assess/monitor cardiac status, Assess/monitor neuro status, Assess/monitor respiratory status BH Goals/Interventions, Cardiac Yes Cardiac, Problem Start 08/01/2022 18:25 Reviewed Plan with, Cardiac Status Patient Patient Progression, Cardiac Status Plan Initiation . Nursing Data Vital Signs : VITAL SIGNS SECTION 08/04/2022 20:00 EDT Temperature 98.3 DegF Temperature Route Oral Pulse Rate 90 bpm Systolic Blood Pressure 127 mm Hg Diastolic Blood Pressure 87 mm Hg H Blood pressure sites Arm, right Oxygen Saturation 94 % Liters per Minute 2 L/min Mode of Delivery (Oxygen) Nasal cannula . Narrative/Incidental Pt A+O x 3. c/o pain in back, pain med given with some effect. Lung sounds clear/diminished, O2@2l.Pt ambulates to bathroom with walker. Pt slept most of the night. Call bel in reach.. * Yris VALLE, Carson: PERFORM, MODIFY, MODIFY, MODIFY Event Display: Progress Note Hospital Authored Date: Patient: ??KATHIE ARCINIEGA ? Age:??76 Years?Sex:??Male?:??1945?? Subjective No acute events overnight. ??Patient states that he did vomit yesterday.?? He reports??some left-sided neck pain??left-sided hip pain??that he attributes to??laying in bed. Telemetry reviewed, which showed sinus rhythm with some ectopic beats. Labwork reviewed, which showed leukocytosis of 11.6 from 13.9, hemoglobin of 15.9, platelets of 136. Review of Systems General:??Negative for fevers, chills, fatigue HEENT:??Negative for congestion, rhinorrhea, sore throat Cardiovascular:??Negative for chest pain, palpitations Respiratory:??Negative for shortness of breath, wheezing Gastrointestinal:??+left flank/hip pain Genitourinary:??Negative for dysuria, hematuria Neurologic:??Negative for headache, dizziness, syncope Skin:??Negative for rashes or lesions Allergies Allergies ?(Active and Proposed Allergies Only) NKA? (Severity: Unknown severity, Onset: Unknown) Objective Vital Signs?? Temperature: 97.3 DegF (08/04/22 07:41:00) Temperature Route: Oral (08/04/22 07:41:00) Pulse Rate: 86 bpm (08/04/22 08:23:00) Respiratory Rate: 20 br/min (08/04/22 08:22:00) Systolic Blood Pressure: 112 mm Hg (08/04/22 08:23:00) Diastolic Blood Pressure: 65 mm Hg (08/04/22 08:23:00) Blood pressure sites: Arm, left (08/04/22 07:41:00) Mean Arterial Pressure: 77 mm Hg (08/04/22 07:41:00) Pulse Pressure: 42 mm Hg (08/04/22 07:41:00) Oxygen Saturation: 95 % (08/04/22 07:41:00) Liters per Minute: 2 L/min (08/04/22 07:41:00) Mode of Delivery (Oxygen): Nasal cannula (08/04/22 07:41:00) Early Warning Score: 4 (08/04/22 12:32:34) ?? Intake/Output? 07/31 19:22 08/04 07:00 08/03 07:00 08/02 07:00 08/01 07:00 ?? 08/04 15:25 08/04 15:25 08/04 06:59 08/03 06:59 08/02 06:59 Intake ?410 ?0 ?360 ?0 ?0 Output ?0 ?0 ?0 ?0 ?0 Net Total ?410 ?0 ?360 ?0 ?0 ? Urine Count ?4 ?0 ?4 ?0 ?0 ?? Physical Exam General: Well appearing. ??Appears mildly distressed due to anxiety. Head: NCAT. Eyes: [place] conjunctiva. Anicteric sclera. Ears: Bilateral pinnae without discharge or lesions. Nose:?? No discharge or congestion. Throat/Mouth: MMM. Oral mucosa was pink and without any lesions. Cardiovascular: Physiologic S1 and S2. No murmurs, rubs or gallops could be auscultated. Respiratory: CTA bilaterally with good inspiratory effort and symmetric chest wall movement. No wheezes, rales, or rhonchi. Abdominal: Distended abdomen, soft.?? Positive bowel sounds in all four quadrants. ??Tenderness palpation of the left lower quadrant. No rebound or guarding. Vascular: Pulses are 2+ at radial bilaterally. Neurologic: Mental Status is alert and oriented to person, place, time, situation. Results Abnormal Labs ?? BLOOD COUNT & DIFF ??Abs. NRBC ??0.0 k/mm3 () ??08/04/2022 12:03 ??MCHC ??31.9 g/dL (Low) ??08/04/2022 12:03 ??MCV ??100.6 femtoliters (High) ??08/04/2022 12:03 ??Nucleated RBC (Automated) ??0.0 #/100 WBC'S () ??08/04/2022 12:03 ??RDW-SD ??47.8 femtoliters (High) ??08/04/2022 12:03 ??WBC ??11.6 k/mm3 (High) ??08/04/2022 12:03 ?? Note: Critical results are displayed in red. Assessment/Plan Patient is a 76-year-old gentleman with a PMHx of hypertrophic cardiomyopathy, HFpEF 65-70%, type 2DM, CKD stage II, BPH, hypertension, anxiety, bipolar disorder, PTSD and frequent falls admitted for chest pain. ? Chest pain (R07.9) History of Hypertrophic Cardiomyopathy (Z86.79) ?Pressure like, pleuritic, nontender, occurred in the past at rest and currently after lifting adesk ?Multiple episodes of chest pain that is substernal and pressure like for which he has not sought care, at least one episode resolved with sublingual nitro 1 month ago, and new Q waves on EKG compared to that of 2017, currently sublingual nitro not helping significantly ?Family history of brother who needed CABG ?Patient is high risk for CAD given hx of HTN, obesity, family hx ?? Q??waves on EKG, no acute ischemic changes ?ECHO: The left ventricular size is normal. There is moderate concentric left ventricular hypertrophy. The left ventricular ejection fraction is 55-60 %. No obvious wall motion abnormalities seen on limited views. Unable to assess diastolic function . The right ventricle is poorly visualized. Plan: ?- Cardiology consultation, recommend outpatient follow-up ?- Continue metoprolol at 25 mg every 6 hours ?- EKG, troponin PRN for chest pain ?-??Can discontinue telemetry ?- Patient's blood pressure is stable, will hold home amlodipine 5 mg daily for now ?- We will??resume home Bumex 0.5 mg daily and hold??home spironolactone 25 mg daily for now andreassess ?? Left Flank/Abdominal Pain Nausea/Vomiting ??Concern for diverticulitis or other abdominal pathology, however CT??not concerning for diverticulitis ??Possibly due to back pain radiating to the flank/hip ??Plan: ??-Oxycodone 5mg PRN for pain (home medication) ??-Zofran as needed for nausea, QTc is within normal limit ?? Renal Findings ??Indeterminate renal lesions bilaterally measuring up to 2.5 cm on the right, and 3.6 cm the left.Consider further evaluation with nonemergent retroperitoneal ultrasound.?? Plan: -Renal US -LDH??level to assess for renal infarct ? Anxiety (F41.9) Bipolar disorder (F31.9) PTSD (post-traumatic stress disorder) (F43.10) ??Plan: ?- Called patient's long-term to obtain his full list of medications, psych meds are as follows BuSpar 12.5 mg twice daily (we only have 10 mg tablets we will give 10 mg twice daily), gabapentin 300 mg in the morning 800 mg in the evening, melatonin 3 mg at night, trazodone 50 mg at night, Xanax 0.5 mg in the morning, 0.25 mg in the evening, Zoloft 100 mg every day ??-Patient is not on risperidone or citalopram ? Atrial Fibrillation (I48.91) ?Longstanding paroxysmal ??Plan: ?- Continue metoprolol dose to 25 mg every 6 hours ?- Continue apixaban 5 mg twice daily ? Hyperkalemia (E87.5) ?Patient states he was also on diuretics at home but does not remember the name, but he was taking oral KCl with it ?Elevated K likely 2/2 oral K ?K within normal limits??yesterday, BMP not resulted today ??Plan: ?- holding KCl ?- repeat BMP daily ? Type 2 Diabetes Mellitus (E11.9) ??Plan: ?- SSI ?- goal 140-180 ? Code status: full ?DVT ppx:??apixaban ?Diet: regular ? Patient seen and discussed with Attending, Dr. Maldonado ?Carson Arndt MD ??PGY-1, Internal Medicine-Pediatrics ??Pager [phone] * Gopi Maldonado DO: PERFORM Event Display: Progress Note Hospital Authored Date: I have seen and examined the patient independently and confirmed the below findings??in the resident physician note Management plan discussed and developed??with the resident physician Patient seen and examined on 08/04/2022 Note * Ben Mcdowell RN: PERFORM Event Display: Discharge/Transfer Note Hospital Authored Date: [id number] Nursing Discharge Note Entered On: 08/05/2022 17:36 EDT Performed On: 08/05/2022 17:36 EDT by Ben Mcdowell RN Nursing Discharge Note 2 Discharge Time : 08/05/2022 17:36 EDT Discharge Level of Care at Discharge : [facility] facility Discharge Nursing Homes/Rehab Facilities : [facility] Patient Left Unit Via : Wheelchair Patient Accompanied Off Unit with : Ambulance/Chair Van Personnel Handover Given to Transport Personnel : Yes DC Instructions Provided & Signed by Pt : Yes Patient Understands D/C Instructions : Yes Patient Instructions Discharge Signed : Yes Ben Mcdowell RN - 08/05/2022 17:36 EDT * Carson Arndt MD: MODIFY, PERFORM, MODIFY, MODIFY Event Display: Discharge/Transfer Note Hospital Authored Date: Patient: ??REGINA, KATHIE ? Age:??76 Years?Sex:??Male?:??1945?? Patient Information Discharge Location: A Primary Care Physician: María New MD Admit Date/Time: 07/31/22 19:22 Discharge Date:??08/05/2022 15:01 Discharge Disposition Discharge Disposition: Senior Living Facility/Rehab Pt is being discharged back to [facility] Discharge Diagnosis Anxiety (F41.9) Atrial fibrillation (I48.91) Bipolar disorder (F31.9) Chest pain (R07.9) Chronic back pain (M54.9) HTN (hypertension) (I10) History of hypertrophic cardiomyopathy (Z86.79) Hyperkalemia (E87.5) PTSD (post-traumatic stress disorder) (F43.10) Type 2 diabetes mellitus (E11.9) _ Discharge Medications Acetaminophen (acetaminophen 325 mg oral tablet)?650?Milligram?2?tablet?By Mouth?Every 4 hours?as needed?not to exceed 3000 mg/day?Pain , Mild/temp 100 or > Alprazolam (Xanax 0.25 mg oral tablet)?0.25?Milligram?1?tablet?By Mouth?Daily at bedtime Alprazolam (Xanax 0.5 mg oral tablet)?0.5?Milligram?1?tablet?By Mouth?Daily in AM Amlodipine (amLODIPine 5 mg oral tablet)?5?Milligram?1?tablet?By Mouth?Daily?HOLD FOR SBP<100 HR<60 apixaban?5?Milligram?By Mouth?2 times a day Bisacodyl (Dulcolax 10 mg rectal suppository)?1?suppository(ies)?10?Milligram?Rectall y?Daily?as needed?as needed for constipation?IF NO RESULTS FROM _x_ MIRALAX BY NEXT SHIFT BusPIRone (busPIRone 5 mg oral tablet)?5?Milligram?1?tablet?By Mouth?2 times a day?for Anxiety. Give with 7.5mg tab for td=12.5mg BusPIRone (busPIRone 7.5 mg oral tablet)?1?tab(s)?7.5?Milligram?By Mouth?2 times a day?for anxiety. Give with 5 mg tab for td=12.5mg Docusate-Senna (Senna Plus 50 mg-8.6 mg oral tablet)?2?tab(s)?By Mouth?Daily?as needed?Constipation Emollients, Topical (Cetaphil Moisturizing)?1?higinio?Topically?Daily?Apply lotion to bilateral lower and upper extremities every day shift. Emollients, Topical (Remedy Phytoplex Z-Guard paste)?1?higinio?Topically?2 times a day?Apply to buttock topically every day and evening shift for MASD Finasteride (finasteride 5 mg oral tablet)?1?tab(s)?5?Milligram?By Mouth?Daily?WEAR GLOVES WHEN HANDLING Gabapentin (gabapentin 300 mg oral capsule)?300?Milligram?1?capsule?By Mouth?Daily Gabapentin (gabapentin 800 mg oral tablet)?1?tab(s)?800?Milligram?By Mouth?Daily at bedtime Lidocaine Topical (lidocaine 4% topical cream)?1?higinio?Topically?Daily at bedtime?Apply q evening shift until seen by risk lead 10/11/22 Magnesium Oxide (Mag-Ox 400 400 mg oral tablet)?1?tab(s)?400?Milligram?By Mouth?2times a day Melatonin (melatonin 3 mg oral tablet)?1?tab(s)?3?Milligram?By Mouth?Daily at bedtime?for insomnia Methyl Salicylate-Menthol Topical (Muscle Rub 10%-15% topical cream)?1?higinio?Topically?Every 8 hours?as needed?Pain , Moderate Metoprolol (metoprolol 100 mg oral tablet, extended release)?100?Milligram?By Mouth?Daily Milk of Magnesia (MOM Liquid)?30?Milliliter?By Mouth?Daily at bedtime?as needed?as needed for constipation?if NO Bm in 3 days nalOXONE (nalOXONE 0.4 mg/mL injectable solution)?0.4?Milligram?Intramuscular?Once?may be repeated every 2-3 min until a response is obtained Nitroglycerin (nitroglycerin 0.4 mg sublingual tablet)?1?tab(s)?0.4?Milligram?Sublingual?Once?End Date 08/01/22 Ocular Lubricant (Artificial Tears PF Ophth)?1 drop?Eyes, Both?Daily?as needed?as needed for dry eyes Oxycodone (oxyCODONE 5 mg oral tablet)?5?Milligram?1?tablet?By Mouth?Every 8 hours?as needed?Pain , Moderate Polyethylene Glycol 3350 (MiraLax Powder)?1?pack/packet?17?gram?By Mouth?Daily?as needed?Constipation Saliva Substitutes (Biotene Mouthwash oral solution)?15?Milliliter?By Mouth?Every 8 hours?as needed?dry mouth/oral comfort Sertraline (Zoloft 100 mg oral tablet)?1?tab(s)?100?Milligram?By Mouth?Daily in AM Simethicone (simethicone 80 mg oral tablet, chewable)?80?Milligram?1?tablet?Chew?Every 12 hours?as needed?Gas Sodium Biphosphate-Sodium Phosphate (Fleet Enema 19 gm-7 gm rectal enema)?118?Milliliter?Rectally?Once?as needed?as needed for constipation?IF NO RESULT FROM DULCOLAX WITHIN 2 HOURS Tamsulosin (tamsulosin 0.4 mg oral capsule)?0.8?Milligram?2?capsule?By Mouth?Daily Trazodone (traZODone 50 mg oral tablet)?50?Milligram?1?tablet?By Mouth?Daily at bedtime ?? Durable Medical Equipment Discharge recommendations: alf (08/05/22) Name of Agency #1: [facility] (08/05/22) Service Categories #1: Physical Therapy, Senior Living (08/05/22) Ambulatory devices needed: Walker (08/01/22) Medications Started Metoprolol Apixaban Miralax and Docusate/Senna PRN for constipation Medications Discontinued Bumex Spironolactone Doses Changed None Allergies Allergies ?(Active and Proposed Allergies Only) NKA? (Severity: Unknown severity, Onset: Unknown) PCP Follow-Up/Heads-Up Patient admitted for chest pain, ACS ruled out.?? Patient started on metoprolol and apixaban for atrial fibrillation.?? Patient's hemoglobin A1c is 7.5,??please??consider treatment outpatient. Patient does have??renal lesion seen on CT and ultrasound.?? Patient needs??MRI??for further??evaluation.?? This can be done outpatient. Please obtain outpatient BMP within 1 week. Bumex and spironolactone held, please assess and restart as clinically indicated. Hospital Course Patient is a 76-year-old gentleman with a PMHx of hypertrophic cardiomyopathy, HFpEF 65-70%, type 2DM, CKD stage II, BPH, hypertension, anxiety, bipolar disorder, PTSD and frequent falls admitted for chest pain, with ACS ruled out due to negative troponin and non-ischemic changes for EKG. ? Chest pain (R07.9) History of Hypertrophic Cardiomyopathy (Z86.79) ?Admitted for multiple episodes of??substernal chest pain, especially with exertion. New Q waves on EKG compared to that of 2017. Troponins were negative, no acute ischemic changes on EKG.?ECHO: The left ventricular size is normal. There is moderate concentric left ventricular hypertrophy. The left ventricular ejection fraction is 55-60 %. No obvious wall motion abnormalities seen on limited views. Unable to assess diastolic function . The right ventricle is poorly visualized. ? Chest pain resolved and did not??recur during hospitalization ??Plan: ?- Cardiology consultation, recommend outpatient follow-up and??further outpatient??work up asneeded (no further ischemic workup inpatient) ?- Continue metoprolol??100mg daily ?- Restart home amlodipine?-??Continue to hold??Bumex 0.5 mg daily and hold home spironolactone 25 mg daily, reassess blood pressure outpatient and restart as clinically indicated ? Left Flank/Abdominal Pain Nausea/Vomiting - resolved ?Concern for diverticulitis or other abdominal pathology, however CT not concerning for diverticulitis ?Possibly due to back pain radiating to the flank/hip ?No episodes of nausea or vomiting on day of discharge ?Plan: ?-Oxycodone 5mg PRN for pain (home medication), tylenol as needed for pain ?? Renal Findings ?Indeterminate renal lesions bilaterally measuring up to 2.5 cm on the right, and 3.6 cm the left. Consider further evaluation with nonemergent retroperitoneal ultrasound. ?? LDH level normal, less concerning for renal infarct ??Kidney function within normal limits throughout hospitalization ??Plan: ??-Outpatient renal MRI as tolerated ? Anxiety (F41.9) Bipolar disorder (F31.9) PTSD (post-traumatic stress disorder) (F43.10) ?Plan: ?-Continue home medications??BuSpar 12.5 mg twice daily, gabapentin 300 mg in the morning 800 mg in the evening, melatonin 3 mg at night, trazodone 50 mg at night, Xanax 0.5 mg in the morning, 0.25 mg in the evening, Zoloft 100 mg every day ? Atrial Fibrillation (I48.91) Cardiology consulted,??it appears that patient has a history of atrial fibrillation but was not on any medication prior to this admission,??started on??metoprolol and apixaban,??electrophysiology consulted who will follow up outpatient ?Plan: ?- Continue metoprolol??100mg daily ?- Continue apixaban 5 mg twice daily ?- Cardiology follow up outpatient ? Hyperkalemia (E87.5) ?Patient was on bumex at home but he was taking oral KCl with it as well as spironolactone ?Elevated K likely 2/2 oral K ?K within normal limits yesterday, BMP not resulted today ?Plan: ?- holding KCl, bumex, and spironolactone ?- repeat BMP??in 3-5 days of discharge ? Type 2 Diabetes Mellitus (E11.9) Hemoglobin A1c of 7.5 PCP follow-up ?? Objective Measurements?? Height: 187 cm (08/05/22) Weight: 136.5 kg (08/01/22) Body Mass Index:??39.03 kg/m2??Critical (08/01/22) ?? Vital Signs?? Temperature: 97.9 DegF (08/05/22 08:09:00) Temperature Route: Oral (08/05/22 08:09:00) Pulse Rate: 76 bpm (08/05/22 09:11:00) Respiratory Rate: 16 br/min (08/05/22 12:56:00) Systolic Blood Pressure: 118 mm Hg (08/05/22 09:11:00) Diastolic Blood Pressure: 57 mm Hg (08/05/22 09:11:00) Blood pressure sites: Arm, right (08/05/22 08:09:00) Mean Arterial Pressure: 77 mm Hg (08/05/22 08:09:00) Pulse Pressure: 61 mm Hg (08/05/22 08:09:00) Oxygen Saturation: 97 % (08/05/22 08:09:00) Liters per Minute: 2 L/min (08/05/22 08:09:00) Mode of Delivery (Oxygen): Nasal cannula (08/05/22 08:09:00) Early Warning Score: 2 (08/05/22 12:28:00) ?? Intake/Output? 07/31 19:22 08/05 07:00 08/04 07:00 08/03 07:00 08/02 07:00 ?? 08/05 15:01 08/05 15:01 08/05 06:59 08/04 06:59 08/03 06:59 Intake ? 1490 ?0 ? 1080 ?360 ?0 Output ? 1000 ?0 ? 1000 ?0 ?0 Net Total ?490 ?0 ? 80 ?360 ?0 ? Urine Count ?5 ?0 ?1 ?4 ?0 . Physical Exam General: Well appearing.??Comfortable on room air. Head: NCAT. Eyes: [place] conjunctiva. Anicteric sclera. Ears: Bilateral pinnae without discharge or lesions. Nose:?? No discharge or congestion. Throat/Mouth: MMM. Oral mucosa was pink and without any lesions. Cardiovascular: Physiologic S1 and S2. No murmurs, rubs or gallops could be auscultated. Respiratory: CTA bilaterally with good inspiratory effort and symmetric chest wall movement. No wheezes, rales, or rhonchi. Abdominal: Distended abdomen, soft.?? Positive bowel sounds in all four quadrants. ??Mild tenderness palpation of the left lower quadrant. No rebound or guarding. Vascular: Pulses are 2+ at radial bilaterally. Neurologic: Mental Status is alert and oriented to person, place, time, situation. Consultants Cardiology - Electrophysiology Pending Results None Patient Education Titles Apixaban Oral Tablet?? Metoprolol Extended Release Oral Tablet?? Discharge Instructions for Atrial Fibrillation?? Follow-Up Appointments Added Follow Up ?Time Frame ?Comments Virgen VALLE, María Castaneda?Within two weeks Patient Instructions You are brought to the hospital because you are having chest pain.?? An EKG was done which showed that you were not having a current heart attack. ??Blood work was not also show that you are not having a current heart attack.?? You did have left-sided??abdominal or flank pain and a CT was done which did not show any infection in the colon. ??It did show 2??lesions in the left and right kidney, soan ultrasound was done.?? The ultrasound recommended that we do an MRI which can be done outpatient. You were started on 2 medications, metoprolol and apixaban because your heart rate was found to be in a rhythm called atrial fibrillation. ??The metoprolol helps control your heart rate and the apixaban is a blood thinner to prevent strokes. You are found to have high potassium while you are here in the hospital, this is most likely because you were taking potassium supplements??in addition to??to taking water pills.?? The potassium supplementation and both the water pills??(Bumex and spironolactone) were held while in the hospital.?? Your primary care doctor can reassess you and restart these medications if needed outpatient. If you develop any chest pain, shortness of breath, dizziness, numbness or tingling,??episodes of passing out,??palpitations, or any other new or concerning symptom please seek immediate medical attention. Results Discharge Labs BLOOD COUNT & DIFF WBC 10.5 k/mm3 ()?? 08/05/2022 06:35 RBC 4.94 m/mm3 ()?? 08/05/2022 06:35 Hgb 15.7 Gm/dL ()?? 08/05/2022 06:35 Hct 48.2 % ()?? 08/05/2022 06:35 MCV 97.6 femtoliters (High)?? 08/05/2022 06:35 MCH 31.8 pg ()?? 08/05/2022 06:35 MCHC 32.6 g/dL (Low)?? 08/05/2022 06:35 Platelet Count 180 k/mm3 ()?? 08/05/2022 06:35 RDW-SD 45.9 femtoliters ()?? 08/05/2022 06:35 MPV 11.1 femtoliters ()?? 08/05/2022 06:35 Nucleated RBC (Automated) 0.0 #/100 WBC'S ()?? 08/05/2022 06:35 Abs. NRBC 0.0 k/mm3 ()?? 08/05/2022 06:35 Abs. Neut 9.9 k/mm3 (High)?? 08/01/2022 05:18 Abs. Lymph 1.9 k/mm3 ()?? 08/01/2022 05:18 Abs. [place] 1.4 k/mm3 (High)?? 08/01/2022 05:18 Abs. Eo 0.2 k/mm3 ()?? 08/01/2022 05:18 Abs. Baso 0.1 k/mm3 ()?? 08/01/2022 05:18 Neut % 73.6 % ()?? 08/01/2022 05:18 Lymph % 13.9 % (Low)?? 08/01/2022 05:18 [place] % 10.4 % ()?? 08/01/2022 05:18 Eos % 1.3 % ()?? 08/01/2022 05:18 Baso % 0.4 % ()?? 08/01/2022 05:18 Imm Gran 0.4 % ()?? 08/01/2022 05:18 Abs. Imm Gran 0.1 k/mm3 ()?? 08/01/2022 05:18 ?? CARDIAC Nt-Probnp 372 pg/mL ()?? 07/31/2022 14:45 High Sensitivity Troponin (HSTnT) 15 ng/L ()?? 07/31/2022 18:17 ?? CHEM GENERAL Sodium 137 mmol/L ()?? 08/05/2022 06:35 Potassium 5.0 mmol/L ()?? 08/05/2022 06:35 Chloride 102 mmol/L ()?? 08/05/2022 06:35 Bicarbonate Level 28 mmol/L ()?? 08/05/2022 06:35 Anion Gap 7 ()?? 08/05/2022 06:35 Glucose Level 117 mg/dL (High)?? 08/05/2022 06:35 Glucose, POC 127 mg/dL (High)?? 08/05/2022 03:06 Hemoglobin A1C (Monitoring) 7.5 % (High)?? 08/02/2022 01:38 BUN 30 mg/dL (High)?? 08/05/2022 06:35 Creatinine-Blood 1.3 mg/dL (High)?? 08/05/2022 06:35 Estimated GFR Creatinine 56 ML/MIN/1.73 M2 ()?? 08/05/2022 06:35 Calcium 9.4 mg/dL ()?? 08/05/2022 06:35 Phosphorus 2.8 mg/dL ()?? 08/01/2022 05:18 Magnesium 1.8 mg/dL ()?? 08/01/2022 05:18 Protein, Total 6.2 Gm/dL ()?? 08/01/2022 05:18 Albumin 3.9 Gm/dL ()?? 08/01/2022 05:18 AG Ratio 1.7 ()?? 08/01/2022 05:18 LDH 205 units/L ()?? 08/05/2022 06:35 Alkaline Phosphatase 106 units/L ()?? 08/01/2022 05:18 AST (SGOT) 15 units/L ()?? 08/01/2022 05:18 ALT (SGPT) 11 units/L ()?? 08/01/2022 05:18 Bilirubin, Total 1.1 mg/dL ()?? 08/01/2022 05:18 ?? COAG D-Dimer 0.64 mg/L FEU ()?? 07/31/2022 14:45 ? MISC. CHEMISTRY Hold Gel Top SPECIMEN DISCARDED AFTER 1 WEEK ()?? 07/31/2022 17:00 ? UA/URINALYSIS Appear/Color, Urine LIGHT YELLOW ()?? 07/31/2022 01:55 Specific Electra, Urine 1.011 ()?? 07/31/2022 01:55 pH, Urine 8.0 ()?? 07/31/2022 01:55 Albumin, Urine TRACE (Abnormal)?? 07/31/2022 01:55 Glucose, Urine NEGATIVE ()?? 07/31/2022 01:55 Ketones, Urine NEGATIVE ()?? 07/31/2022 01:55 Bilirubin, Urine NEGATIVE ()?? 07/31/2022 01:55 Hemoglobin, Urine NEGATIVE ()?? 07/31/2022 01:55 Nitrite, Urine NEGATIVE ()?? 07/31/2022 01:55 Leukocyte, Urine NEGATIVE ()?? 07/31/2022 01:55 Urobilinogen NORMAL mg/dL ()?? 07/31/2022 01:55 WBC's, Urine 1 /HPF ()?? 07/31/2022 01:55 RBC's, Urine NONE SEEN /HPF ()?? 07/31/2022 01:55 Squamous Epith 1 /HPF ()?? 07/31/2022 01:55 Mucus SLIGHT /LPF ()?? 07/31/2022 01:55 Hold Urine Culture Testing available 48 hours from time of collection. ()?? 07/31/2022 01:55 ?? VIROLOGY COVID-19 by RT-PCR NEGATIVE ()?? 07/31/2022 17:00 ? Microbiology ?? COVID-19 (Novel Coronavirus), Rapid PCR?? Completed?? Source: Nasal Body Site: Nose Collected Dt/Tm: 07/31/2022 15:45 Last Updated Dt/Tm: 07/31/2022 18:54 Imaging(s) ?Chest 2 Views Frontal and Lat ?? 07/31/2022 17:00??by Adele Haley MD ?FINDINGS: LINES AND TUBES: EKG leads project over the chest. ?? LUNGS AND PLEURA: Clear lungs. Normal pulmonary vascularity. No pleural effusion. No pneumothorax. ?? HEART, MEDIASTINUM AND SHAQUILLE: Heart is normal in size. Normal mediastinal and hilar contour. ?? BONES AND SOFT TISSUES: No acute abnormality. ?? IMPRESSION: ?? No acute abnormality. ?US Retroperitoneum Comp ?? 08/05/2022 12:44??by Mikel Nobles MD ? FINDINGS: ?? Right kidney: 12 cm. 2.1 cm exophytic hypoechoic lesion from the lateral midportion. No stones or obstruction. ?? Left kidney: 13 cm. 3.4 cm exophytic hypoechoic lesion lower pole. No stones or obstruction. ?? Bladder: Normal. No stone, mass, wall thickening or debris. ?? IMPRESSION: ?? Bilateral hypoechoic lesions remain indeterminate by ultrasound criteria. Note that an exophytic lesion from the right upper pole was not seen. ?? Recommend renal MRI without and with contrast for optimal characterization ?Echocardiogram - Complete ?? 08/02/2022 10:27??by Danica Villalobos MD ?Cardiac Anatomy ?? Left Ventricle/Interventricular Septum ??The left ventricular size is normal. ??There is moderate concentric left ventricular hypertrophy. ??The left ventricular ejection fraction is 55-60 %. ??No obvious wall motion abnormalities seen on limited views. ??Unable to assess diastolic function . ?? Left Atrium/Interatrial Septum ??The left atrium is poorly visualized. ?? Aortic Valve ??The aortic valve is probably trileaflet . ??There is no significant aortic regurgitation. ??There is no significant aortic stenosis. ?? Mitral Valve ??The mitral valve is poorly visualized. ??The mitral valve is grossly normal. ??The mitral valve appears mildly calcified. ??There is no significant mitral regurgitation. ??There is no significant mitral stenosis. ?? Aorta ??There is mild dilation of the aortic root and ascending aorta . ?? Right Ventricle ??The right ventricle is poorly visualized. ?? Right Atrium ??The right atrium is poorly visualized. ?? Pulmonic Valve ??The pulmonic valve is poorly visualized. ?? Tricuspid Valve ??The tricuspid valve is poorly visualized. ?? Pumonary Artery ??An accurate pulmonary artery pressure could not be obtained. ?? Venous Structures ??The inferior vena cava appears normal. ?? Pericardium/Extracardiac ??There is no pericardial effusion. ?? Summary ??Technically very difficult study even with IV Definity. ??The left ventricular size is normal. ??There is moderate concentric left ventricular hypertrophy. ??The left ventricular ejection fraction is 55-60 %. ??No obvious wall motion abnormalities seen on limited views. ??Unable to assess diastolic function . ??The right ventricle is poorly visualized. ?CT Abd/Pelvis W/ IV + Oral Contrast ?? 08/03/2022 11:04??by Marlo Castaneda MD ?FINDINGS: ?? Bicycle Taxi Driver View Findings, Lines and Tubes: None. ?? Visualized Chest: Mild bibasilar atelectasis. No pleural effusion. Mild cardiomegaly. No pericardial effusion. ?? Diaphragm: Normal. ?? Liver: Normal. ?? Gallbladder: Sludge within the otherwise normal-appearing gallbladder. ?? Bile ducts: No biliary ductal dilation. ?? Spleen: Normal. ?? Pancreas: Normal. ?? Adrenal glands: Normal. ?? Kidneys and ureters: No hydronephrosis, stones, or suspicious masses. Bilateral indeterminate renallesions measuring up to 2.5 cm in the right upper pole and 3.6 cm in the left lower pole. Consider further evaluation with a retroperitoneal ultrasound. ?? Bladder: Normal. ?? Reproductive organs: The prostate is enlarged, measuring up to 6.6 cm. ?? Stomach, small bowel, and large bowel: The stomach is normal. The small bowel is normal in caliber,with no evidence of bowel obstruction. The rectum is normal. The colon is normal. ?? Appendix: Normal. ?? Peritoneum and retroperitoneum: No ascites or pneumoperitoneum. No omental or mesenteric lesions. ?? Lymph nodes: No enlarged lymph nodes. ?? Blood vessels: Mild vascular calcifications but no aneurysm. No evidence of venous thrombosis. ?? Abdominal and pelvic wall: Mild gynecomastia. Small fat-containing left omental hernia.. ?? Bones: No acute abnormality. Degenerative changes in spine. ?? IMPRESSION: ?? 1. No acute findings within the abdomen or pelvis. 2. Indeterminate renal lesions bilaterally measuring up to 2.5 cm on the right, and 3.6 cm the left. Consider further evaluation with nonemergent retroperitoneal ultrasound. 30??minutes spent on discharge ?? Patient seen and discussed with Attending, Dr. Mckeon ?? Carson Arndt MD PGY-1, Internal Medicine-Pediatrics Pager [phone] * Derrick Mckeon MD: PERFORM Event Display: Discharge/Transfer Note Hospital Authored Date: 76-year-old man with hypertrophic cardiomyopathy with preserved ejection fraction, noninsulin-dependent type 2 diabetes, CKD 2, BPH, anxiety, bipolar disorder, PTSD who was admitted for chest pain. ?? Diagnoses: Chronic heart failure with preserved ejection fraction Zcp-[id number] type 2 diabetes CKD 2 BPH Anxiety Bipolar disorder Chronic PTSD Atrial fibrillation ?? Vitals reviewed and significant for Hypoxia (97% on 2L NC) and otherwise unremarkable. Labwork reviewed and significant for Elevated blood urea nitrogen (BUN) levels and Elevated creatinine levels with CBC and BMP otherwise unremarkable. ?? Recommendations: - Follow-up with PCP in 3-5 days - Apixaban started during admission for atrial fibrillation ?? PCP to repeat the following labwork at the next PCP appointment in 3-5 days: BMP. ?? Incidental findings included: Bilateral hypoechoic lesions. Recommend renal MRI without and with contrast for optimal characterization. ?? Recommendations: - PCP to Follow-up ?? I evaluated the patient on date of service 08/05/2022. I saw and evaluated this patient with Dr. Arndt and agree with the resident???s findings and plan of care as documented by the resident or edited by me. I spent 39 minutes on the following: preparing to see the patient (eg, review of tests), obtaining and/or reviewing separately obtained history, performing a medically appropriate examination and/or evaluation, counseling and educating the patient/family/caregiver and care coordination * Day Gaffney RN: VERIFY, PERFORM, SIGN Event Display: Case Management Discharge Plan Authored Date: Patient: KATHIE ARCINIEGA Age: 76 years Sex: Male : 1945 Associated Diagnoses: None Author: Day Gaffney RN Discharge Plan Case Management Discharge Plan : Case Management Discharge Plan Data 08/05/2022 14:44 EDT Discharge Level of Care at Discharge [facility] facility Discharge Nursing Homes/Rehab Facilities [facility] [place] Name of Agency #1 [facility] Categories #1 Physical Therapy, Senior Living * Ben Mcdowell RN: PERFORM Event Display: Patient Education/Instruction Authored Date: Inpatient Adult Discharge Instructions [address] [address] Name: KATHIE ARCINIEGA : 1945 Visit: 07/31/2022 19:22:00 Current Date: 08/05/2022 16:53 Account: [id number] Inpatient Adult Discharge Instructions We would like to thank you for allowing us to assist you with your healthcare needs. The following includes patient education materials and information regarding your injury/illness. Our entire staffstrives to provide an excellent experience for our patients and their families. PLEASE ENSURE YOU FOLLOW-UP PER THE INSTRUCTIONS BELOW! ?? YOUR OPINION IS IMPORTANT TO US! Please complete the survey you may receive by mail or email. Your feedback will be used to make improvements to the healthcare experiences of our patients and their families. Surveys are administered by [employer] ?? If further treatment with your primary care physician or another doctor is recommended, it is important for you to keep the appointment. Call your primary care physician or return to the Emergency Department immediately if your condition worsens, fails to improve, or new symptoms develop. If you need to find a doctor, you can call [facility] for a referral at [phone] or toll free at [phone] or log in to [email or web address].. ?? You can view and manage your care through the patient portal or by using a health care higinio of your choosing. [employer] is a website that allows you to securely view your medical information including your hospital discharge summary, office visit summaries, medications and follow-up visits. You can also request appointments, renew medications, and request access to your medical information using a health care higinio of your choosing, or just ask a question. You can enroll at [email or web address] or register during your next office visit. You have been discharged from [facility], Patient Care Unit: D6A. If you have any questions regarding these instructions after you leave, please call us and we will be happy to assist you. 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 No SOB. 1 SL nitro givenat SNF. afib on monitor Your Diagnosis Atrial fibrillation Hyperkalemia Chest pain Type 2 diabetes mellitus HTN (hypertension) Bipolar disorder Anxiety PTSD (post-traumatic stress disorder) History of hypertrophic cardiomyopathy Chronic back pain Tests Performed Below is a partial list of the tests performed during your hospitalization. You may have had other tests and procedures not included in this list. Please discuss all test results with your provider. Basic Metabolic Panel BUN CBC CBC w/ Differential Comprehensive Metabolic Panel COVID-19 (Novel Coronavirus), Rapid PCR Creatinine D Dimer Electrolytes GLUCOSE POC HEMOGLOBIN A1C High??Sensitivity??Troponin T HOLD GEL TUBE LDH Lytes Magnesium Level Phosphorus Level ProBNP Urinalysis w/hold for Urine Culture CT Abd/Pelvis W/ IV + Oral Contrast US Renal Comp XR Chest 2 Views Frontal and Lat Primary Care Provider María New MD Advance Directive Health Care Proxy on File No Discharge Vitals Temperature: 97.9 DegF Height: 187 cm Pulse Rate: 76 bpm Weight: 136.5 kg Respiratory Rate: 16 br/min Body Mass Index:??39.03 kg/m2??Critical Systolic Blood Pressure: 118 mm Hg Body surface area: 2.66 Diastolic Blood Pressure: 57 mm Hg ?? Oxygen Saturation: 97 % ?? Studies Pending All tests and labs ordered during this hospital stay have been completed unless listed below. Please discuss all pending results with your provider listed above in these instructions. ?? Add On Lab Order Creatinine Urine Sodium Urine (Na Urine) Urea Nitrogen Urine (Urine Urea Nitrogen) What to do next Instructions From Your Doctor You are brought to the hospital because you are having chest pain.?? An EKG was done which showed that you were not having a current heart attack. ??Blood work was not also show that you are not having a current heart attack.?? You did have left-sided??abdominal or flank pain and a CT was done which did not show any infection in the colon. ??It did show 2??lesions in the left and right kidney, soan ultrasound was done.?? The ultrasound recommended that we do an MRI which can be done outpatient. You were started on 2 medications, metoprolol and apixaban because your heart rate was found to be in a rhythm called atrial fibrillation. ??The metoprolol helps control your heart rate and the apixaban is a blood thinner to prevent strokes. You are found to have high potassium while you are here in the hospital, this is most likely because you were taking potassium supplements??in addition to??to taking water pills.?? The potassium supplementation and both the water pills??(Bumex and spironolactone) were held while in the hospital.?? Your primary care doctor can reassess you and restart these medications if needed outpatient. If you develop any chest pain, shortness of breath, dizziness, numbness or tingling,??episodes of passing out,??palpitations, or any other new or concerning symptom please seek immediate medical attention. Discharge Orders You Need to Schedule the Following Appointments Follow Up with??Virgen VALLE, María Castaneda When:??Within Within two weeks Where: [facility] [address] [place] [address]- Discharge Medications KATHIE ARCINIEGA :1945 Visit Date:07/31/2022 Medications: Please continue your medications until treatment is completed or stopped by your provider. Medications not listed below should be discontinued. Discuss any questions related to medications with your provider. What How Much When Instructions Next Dose New apixaban 5 Milligram Oral Twice a day New Metoprolol (metoprolol 100 mg oral tablet, extended release) 100 Milligram Oral Daily New Polyethylene Glycol 3350 (MiraLax Powder) 17 gram Oral Daily as needed for Constipation Changed Alprazolam (Xanax 0.25 mg oral tablet) 1 tab(s) Oral Daily at Bedtime Changed Alprazolam (Xanax 0.5 mg oral tablet) 1 tab(s) Oral Daily in the morning Changed Tamsulosin (tamsulosin 0.4 mg oral capsule) 2 capsule Oral Daily Unchanged Acetaminophen (acetaminophen 325 mg oral tablet) 2 tab(s) Oral Every 4 hours as needed for Pain , Mild/temp 100 or > not to exceed 3000 mg/ day ?? Unchanged Amlodipine (amLODIPine 5 mg oral tablet) 1 tab(s) Oral Daily HOLD FOR SBP<100 HR<60 ?? Unchanged Bisacodyl (Dulcolax 10 mg rectal suppository) 1 suppository(ies) Per rectum Daily as needed for as needed for constipation IF NO RESULTS FROM _x_ MIRALAX BY NEXT SHIFT ?? Unchanged BusPIRone (busPIRone 5 mg oral tablet) 1 tab(s) Oral Twice a day for Anxiety. Give with 7.5mg tab for td=12.5mg ?? Unchanged BusPIRone (busPIRone 7.5 mg oral tablet) 1 tab(s) Oral Twice a day for anxiety. Give with 5 mg tab for td=12.5mg ?? Unchanged Docusate-Senna (Senna Plus 50 mg-8.6 mg oral tablet) 2 tab(s) Oral Daily as needed for Constipation Unchanged Emollients, Topical (Cetaphil Moisturizing) 1 higinio Topically Daily Apply lotion to bilateral lower and upper extremities every day shift. ?? Unchanged Emollients, Topical (Remedy Phytoplex Z-Guard paste) 1 higinio Topically Twice a day Apply to buttock topically every day and evening shift for MASD ?? Unchanged Finasteride (finasteride 5 mg oral tablet) 1 tab(s) Oral Daily WEAR GLOVES WHEN HANDLING ?? Unchanged Gabapentin (gabapentin 300 mg oral capsule) 1 capsule Oral Daily Unchanged Gabapentin (gabapentin 800 mg oral tablet) 1 tab(s) Oral Daily at Bedtime Unchanged Lidocaine Topical (lidocaine 4% topical cream) 1 higinio Topically Daily at Bedtime Apply q evening shift until seen by risk lead ?? Unchanged Magnesium Oxide (Mag-Ox 400 400 mg oral tablet) 1 tab(s) Oral Twice a day Unchanged Melatonin (melatonin 3 mg oral tablet) 1 tab(s) Oral Daily at Bedtime for insomnia ?? Unchanged Methyl Salicylate-Menthol Topical (Muscle Rub 10%-15% topical cream) 1 higinio Topically Every 8 hours as needed for Pain , Moderate Unchanged Milk of Magnesia (MOM Liquid) 30 Milliliter Oral Daily at Bedtime as needed for as needed for constipation if NO Bm in 3 days ?? Unchanged nalOXONE (nalOXONE 0.4 mg/ mL injectable solution) 0.4 Milligram Intramuscular Once may be repeated every 2-3 min until a response is obtained ?? Unchanged Nitroglycerin (nitroglycerin 0.4 mg sublingual tablet) 1 tab(s) Sublingual Once End Date ?? Unchanged Ocular Lubricant (Artificial Tears PF Ophth) 1 drop Both eyes Daily as needed for as needed for dry eyes Unchanged Oxycodone (oxyCODONE 5 mg oral tablet) 1 tab(s) Oral Every 8 hours as needed for Pain , Moderate Unchanged Saliva Substitutes (Biotene Mouthwash oral solution) 15 Milliliter Oral Every 8 hours as needed for dry mouth/oral comfort Unchanged Sertraline (Zoloft 100 mg oral tablet) 1 tab(s) Oral Daily in the morning Unchanged Simethicone (simethicone 80 mg oral tablet, chewable) 1 tab(s) Chew Every 12 hours as needed for Gas Unchanged Sodium Biphosphate-Sodium Phosphate (Fleet Enema 19 gm-7 gm rectal enema) 118 Milliliter Per rectum Once as needed for as needed for constipation IF NO RESULT FROM DULCOLAX WITHIN 2 HOURS ?? Unchanged Trazodone (traZODone 50 mg oral tablet) 1 tab(s) Oral Daily at Bedtime ?? What How Much When Comments Stop Taking Bumetanide (bumetanide 0.5 mg oral tablet) 1 tab(s) Oral Daily fluid retention ?? Stop Taking Potassium Chloride (potassium chloride 20 mEq/ 15 mL oral liquid) 5 Milliliter Oral Twice a day Stop Taking Spironolactone (Aldactone 25 mg oral tablet) 1 tab(s) Oral Daily in the morning Test Results Below is a partial list of the most recent Laboratory test results done prior to this discharge. You may have had other tests and procedures not included in this list. Please discuss all test resultswith your provider. Basic Metabolic Panel (08/05/2022) ???Sodium - 137 mmol/L???Potassium - 5.0 mmol/L???Chloride - 102 mmol/L???Bicarbonate Level - 28 mmol/L???Anion Gap - 7???Glucose Level - 117 mg/dL???BUN - 30 mg/dL???Creatinine-Blood - 1.3 mg/dL???Estimated GFR Creatinine - 56 ML/MIN/1.73 M2???Calcium - 9.4 mg/dL BUN (08/02/2022) ???BUN - 23 mg/dL CBC (08/05/2022) ???WBC - 10.5 k/mm3???RBC - 4.94 m/mm3???Hgb - 15.7 Gm/dL???Hct - 48.2 %???MCV - 97.6 femtoliters???MCH - 31.8 pg???MCHC - 32.6 g/dL???Platelet Count - 180 k/mm3???RDW-SD - 45.9 femtoliters???MPV - 11.1 femtoliters???Nucleated RBC (Automated) - 0.0 #/100 WBC'S???Abs. NRBC - 0.0 k/mm3 CBC w/ Differential (08/01/2022) ???WBC - 13.4 k/mm3???RBC - 5.03 m/mm3???Hgb - 15.8 Gm/dL???Hct - 47.5 %???MCV - 94.4 femtoliters???MCH - 31.4 pg???MCHC - 33.3 g/dL???Platelet Count - 170 k/mm3???RDW-SD - 45.4 femtoliters???MPV - 11.1 femtoliters???Nucleated RBC (Automated) - 0.0 #/100 WBC'S???Abs. NRBC - 0.0 k/mm3???Abs. Neut - 9.9 k/mm3???Abs. Lymph - 1.9 k/mm3???Abs. [place] - 1.4 k/mm3???Abs. Eo - 0.2 k/mm3???Abs. Baso - 0.1 k/mm3???Neut % - 73.6 %???Lymph % - 13.9 %???[place] % - 10.4 %???Eos % - 1.3 %???Baso % - 0.4 %???Imm Gran - 0.4 %???Abs. Imm Gran - 0.1 k/mm3 Comprehensive Metabolic Panel (08/01/2022) ???Sodium - 138 mmol/L???Potassium - 5.0 mmol/L???Chloride - 101 mmol/L???Bicarbonate Level - 24 mmol/L???Anion Gap - 13???Glucose Level - 156 mg/dL???BUN - 18 mg/dL???Creatinine-Blood - 1.1 mg/dL???Estimated GFR Creatinine - 67 ML/MIN/1.73 M2???Calcium - 9.0 mg/dL???Protein, Total - 6.2 Gm/dL???Albumin - 3.9 Gm/dL???AG Ratio - 1.7???Alkaline Phosphatase - 106 units/L???AST (SGOT) - 15 units/L???ALT (SGPT) - 11 units/L???Bilirubin, Total - 1.1 mg/dL COVID-19 (Novel Coronavirus), Rapid PCR (07/31/2022) ???COVID-19 by RT-PCR - NEGATIVE Creatinine (08/02/2022) ???Creatinine-Blood - 1.1 mg/dL???Estimated GFR Creatinine - 67 ML/MIN/1.73 M2 D Dimer (07/31/2022) ???D-Dimer - 0.64 mg/L FEU Electrolytes (08/04/2022) ???Sodium - 135 mmol/L???Potassium - 6.0 mmol/L???Chloride - 103 mmol/L???Bicarbonate Level - 23 mmol/L???Anion Gap - 9 GLUCOSE POC (08/05/2022) ???Glucose, POC - 127 mg/dL HEMOGLOBIN A1C (08/02/2022) ???Hemoglobin A1C (Monitoring) - 7.5 % High??Sensitivity??Troponin T (07/31/2022) ???High Sensitivity Troponin (HSTnT) - 15 ng/L HOLD GEL TUBE (07/31/2022) ???Hold Gel Top - SPECIMEN DISCARDED AFTER 1 WEEK LDH (08/05/2022) ???LDH - 205 units/L Lytes (08/02/2022) ???Sodium - 138 mmol/L???Potassium - 4.6 mmol/L???Chloride - 100 mmol/L???Bicarbonate Level - 27 mmol/L???Anion Gap - 11 Magnesium Level (08/01/2022) ???Magnesium - 1.8 mg/dL Phosphorus Level (08/01/2022) ???Phosphorus - 2.8 mg/dL ProBNP (07/31/2022) ???Nt-Probnp - 372 pg/mL Urinalysis w/hold for Urine Culture (07/31/2022) ???Appear/Color, Urine - LIGHT YELLOW???Specific Electra, Urine - 1.011???pH, Urine - 8.0???Albumin, Urine - TRACE???Glucose, Urine - NEGATIVE???Ketones, Urine - NEGATIVE???Bilirubin, Urine - NEGATIVE???Hemoglobin, Urine - NEGATIVE???Nitrite, Urine - NEGATIVE???Leukocyte, Urine - NEGATIVE???Urobilin ogen - NORMAL???WBC's, Urine - 1 /HPF???RBC's, Urine - NONE SEEN???Squamous Epith - 1 /HPF???Mucus - SLIGHT???Hold Urine Culture - Testing available 48 hours from time of collection. Allergies (NKA means No Known Allergies) NKA Problems Active Problems??(1) Obese class II?? Education Materials Below is the list of Educational Leaflet Providered with your Discharge Instructions. Apixaban Oral Tablet?? Metoprolol Extended Release Oral Tablet?? Discharge Instructions for Atrial Fibrillation?? Valuables and Belongings I fully understand and agree that [facility] accepts no responsibility for all my personal property including clothing, toilet articles, radios, jewelry, dentures, hearing aids, rings, money, or any other property that is in my possession or is brought to me after admission. I understand certain valuables may be placed in a hospital safe for a short period of time. I understand that the hospital is not liable for loss or damage due to accident, fire, or other natural occurrence while said property is in the safe. I accept full responsibility for any personal property that I keep with me, and will not hold the hospital responsible in case of loss or disappearance. I acknowledge that i have been encouraged to send valuables and belongings home. ?? Date for Pt to Sign Valuables/Belongings: 08/01/22 16:17:00 ?? Other Discharge Information ? Case Management Discharge Plan?? Discharge Plan?? Discharge Agency Information?? Discharge Level of Care at Discharge: [facility] facility Name of Agency #1: [facility] Discharge Transportation Arranged: [facility] [address] [facility] [phone] Service Categories #1: Physical Therapy, Senior Living Mode of Transportation Arranged: Ambulance ?? Discharge Arranged Transport Date/Time: 08/05/22 18:00:00 ?? Discharge Nursing Homes/Rehab Facilities: [facility] [place] ? Pulmonary Rehab Status?? Pulmonary Rehab Discharge Status?? Respiratory Rate: 16 br/min ? Common Emergency Awareness Tips IS IT A STROKE? Act FAST and Check for these signs: FACE Does the face look uneven? ARM Does one arm drift down? SPEECH Does their speech sound strange? TIME Call at any sign of stroke ?? Heart Attack Signs Chest discomfort: Most heart attacks involve discomfort in the center of the chest and lasts more than a few minutes, or goes away and comes back. It can feel like uncomfortable pressure, squeezing, fullness or pain. Discomfort in upper body: Symptoms can include pain or discomfort in one or both arms, back, neck, jaw or stomach. Shortness of breath: With or without discomfort. Other signs: Breaking out in a cold sweat, nausea, or lightheaded. Remember, MINUTES DO MATTER. If you experience any of these heart attack warning signs, call to get immediate medical attention! ?? Smoking can increase your chances of developing chronic health problems and can cause harmful effects to other family members in your house. If you smoke, you are strongly encouraged to quit. Please call [facility] at [phone] or [phone] ([phone]) or log in to [email or web address] for referrals to smoking cessation programs. ?? 445 Suicide & Crisis Lifeline is available 09/09 if you or someone you know needs to find a reason to keep living. By calling 962 you'll be connected to a skilled, trained counselor at a crisis center in your area. INPATIENT DISCHARGE INSTRUCTIONS SIGNATURE GRACIE ARCINIEGAKATHIE Location:[facility] Registration Date and Time:07/31/2022 19:22 EDT Primary Care Physician: María New MD, Attending Physician: Derrick Mckeon MD, I KATHIE ARCINIEGA, have received the above patient education materials/instructions and have verbalized understanding. If ambulance or transport services are being used I further acknowledge being given a choice of service. ?? If you need to contact me, please call me at this number: . Patient/Art Appraiser Name: Patient/Art Appraiser Signature: Relationship to Patient: Witness Name/Signature: Date: * Carson Arndt MD: PERFORM Event Display: Patient Education Leaflets Authored Date: [id number] Apixaban Oral Tablet ?? [id number] Apixaban Oral Tablet Brands: Eliquis Uses This medicine is used for the following purposes: ??? blood disorder ??? prevent blood clots ??? treatment of blood clots ??? blood clot ?? Instructions This medicine may be taken with or without food. This medicine will work best if you take it at about the same time every day. Store at room temperature away from heat, light, and moisture. Do not keep in the bathroom. It is important that you keep taking each dose of this medicine on time even if you are feeling well. If you forget to take a dose on time, take it as soon as you remember. If it is almost time for thenext dose, do not take the missed dose. Return to your normal schedule. Do not take 2 doses at one time. Drug interactions can change how medicines work or increase risk for side effects. Tell your healthcare providers about all medicines taken. Include prescription and hnia-xqd-jcfwlfa medicines, vitamins, and herbal medicines. Speak with your doctor or pharmacist before starting or stopping any medicine. Talk to your doctor before taking other medicines, including aspirins and ibuprofen containing products. Speak to your doctor about which medicines are safe to use while you are on this medicine. It is very important that you follow your doctor's instructions for all blood tests. ?? Cautions This medicine may cause serious bleeding problems in patients taking blood thinner medications. Follow your doctor's instructions carefully to monitor your blood lab tests if you are on blood thinners. Tell your doctor and pharmacist if you ever had an allergic reaction to a medicine. This medicine may cause serious bleeding from the stomach or bowels. Stop this medicine and call your doctor immediately if you see any signs of bleeding. Bleeding can cause pain in the stomach, vomiting up liquid that looks like coffee grounds, and red or dark tarry stools. There is an increased risk of bleeding while on this medicine, please tell your doctor or nurse if you notice any excessive bleeding or bruising. Do not use the medication any more than instructed. Please check with your doctor before drinking alcohol while on this medicine. Do not breastfeed while on this medicine. This medicine can hurt a new baby in the womb. If you become while on this medicine, tell your doctor immediately. Your doctor may switch you to a different medicine. Do not take Sabin's wort while on this medicine. Do not share this medicine with anyone who has not been prescribed this medicine. Some patients have serious side effects from this medicine. Ask your pharmacist to show you the information from the Food and Drug Administration (FDA) and discuss it with you. Always refill this medicine before it runs out. ?? Side Effects The following is a list of some common side effects from this medicine. Please speak with your doctor about what you should do if you experience these or other side effects. ??? nosebleeds Call your doctor or get medical help right away if you notice any of these more serious side effects: ??? bleeding or bruising ??? coughing up blood or vomit that looks like coffee grounds ??? fainting??? numbness or tingling in hands and feet ??? severe or persistent headache ??? sudden leg pain, swelling, warmth or redness ??? loss of movement anywhere on the body ??? shortness of breath ??? bloody or dark, tarry stools ??? symptoms of stroke (such as one-sided weakness, slurred speech, confusion) ??? difficulty swallowing ??? unusual or unexplained tiredness or weakness ??? blood in urine ??? blurring or changes of vision A few people may have an allergic reaction to this medicine. Symptoms can include difficulty breathing, skin rash, itching, swelling, or severe dizziness. If you notice any of these symptoms, seek medical help quickly. ?? Extra Please speak with your doctor, nurse, or pharmacist if you have any questions about this medicine. ?? [email or web address] IMPORTANT NOTE: This document tells you briefly how to take your medicine, but it does not tell youall there is to know about it. Your doctor or pharmacist may give you other documents about your medicine. Please talk to them if you have any questions. Always follow their advice. There is a more complete description of this medicine available in [employer]. Scan this code on your smartphone or tablet or use the web address below. You can also ask your pharmacist for a printout. If you have any questions, please ask your pharmacist. The display and use of this drug information is subject to Terms of Use. Copyright(c) 2022 [employer]. ?? [employer]. All rights reserved. This information is not intended as a substitute for professional medical care. Always follow your healthcare professional's instructions. ?? * Carson Arndt MD: PERFORM Event Display: Patient Education Leaflets Authored Date: [id number] Metoprolol Extended Release Oral Tablet ?? [id number] Metoprolol Extended Release Oral Tablet Brands: Toprol Uses This medicine is used for the following purposes: ??? angina ??? heart attack ??? heart failure ???high blood pressure ??? irregular heart beat ??? prevent migraine headaches ??? movement disorder ?? Instructions Swallow the medicine without crushing or chewing it. This medicine may be taken with or without food. This medicine will work best if you take it at about the same time every day. Keep the medicine at room temperature. Avoid heat and direct light. It is important that you keep taking each dose of this medicine on time even if you are feeling well. If you forget to take a dose on time, take it as soon as you remember. If it is almost time for thenext dose, do not take the missed dose. Return to your normal schedule. Do not take 2 doses at one time. Drug interactions can change how medicines work or increase risk for side effects. Tell your healthcare providers about all medicines taken. Include prescription and dwwl-biq-kohgczm medicines, vitamins, and herbal medicines. Speak with your doctor or pharmacist before starting or stopping any medicine. This medicine may cause low blood sugar. Eat regular meals and exercise as instructed by your doctor. Tell your doctor if you have symptoms of low blood sugar such as nausea, sweating, cold skin, fast heartbeat, hunger, and irritability. If you have diabetes, this medicine may hide some signs of low blood sugar, such as fast heartbeat.Check your blood sugar regularly and for other signs of low blood sugar. ?? Cautions Tell your doctor and pharmacist if you ever had an allergic reaction to a medicine. Some patients with weak hearts may have worsening of symptoms. If you notice difficulty breathing, weight gain, or swelling of your legs or ankles, let your doctor know right away. Do not use the medication any more than instructed. This medicine may cause dizziness or fainting, especially after exercising or in hot weather. Be very careful when standing or sitting up quickly. Your ability to stay alert or to react quickly may be impaired by this medicine. Do not drive or operate machinery until you know how this medicine will affect you. Please check with your doctor before drinking alcohol while on this medicine. Tell the doctor or pharmacist if you are , planning to be , or . Do not share this medicine with anyone who has not been prescribed this medicine. ?? Side Effects The following is a list of some common side effects from this medicine. Please speak with your doctor about what you should do if you experience these or other side effects. ??? diarrhea ??? dizziness or drowsiness ??? lack of energy and tiredness ??? slow heartbeat ??? low blood pressure Call your doctor or get medical help right away if you notice any of these more serious side effects: ??? confusion ??? depression or feeling sad ??? fainting ??? pale or blue skin, lips or fingernails??? shortness of breath ??? unusual or unexplained tiredness or weakness ??? sudden or unexplained weight gain A few people may have an allergic reaction to this medicine. Symptoms can include difficulty breathing, skin rash, itching, swelling, or severe dizziness. If you notice any of these symptoms, seek medical help quickly. ?? Extra Please speak with your doctor, nurse, or pharmacist if you have any questions about this medicine. ?? [email or web address] IMPORTANT NOTE: This document tells you briefly how to take your medicine, but it does not tell youall there is to know about it. Your doctor or pharmacist may give you other documents about your medicine. Please talk to them if you have any questions. Always follow their advice. There is a more complete description of this medicine available in [employer]. Scan this code on your smartphone or tablet or use the web address below. You can also ask your pharmacist for a printout. If you have any questions, please ask your pharmacist. The display and use of this drug information is subject to Terms of Use. Copyright(c) 2022 [employer]. ?? [employer]. All rights reserved. This information is not intended as a substitute for professional medical care. Always follow your healthcare professional's instructions. ?? * Carson Arndt MD: PERFORM Event Display: Patient Education Leaflets Authored Date: Discharge Instructions for Atrial Fibrillation ?? [id number] Discharge Instructions for Atrial Fibrillation You have been diagnosed with an abnormal heart rhythm called atrial fibrillation (AFib).??This means your heart???s 2 upper chambers quiver rather than squeeze the blood out in a normal pattern. Thisleads to an irregular and sometimes rapid heartbeat. Some people will have symptoms such as a flip-flopping heartbeat, chest pain, lightheadedness, or shortness of breath. Other people may have no symptoms at all. AFib is serious because it affects the heart???s ability to fill with blood as it should. Blood clots may form. This increases the risk for stroke. Untreated, it can also lead to heart failure. AFib can be controlled. With??treatment, most??people lead normal lives. Treatment options Treatment for AFib depends on your age, symptoms, how long you have had it, and other factors. You will have??a complete evaluation to find out if you have any abnormalities that caused your heart togo into AFib. This might be blocked heart arteries, heart valve problems, or a thyroid problem. Your doctor will assess your case and discuss choices with you. Treatment choices may include: ??? Treating an underlying??disorder that puts you at risk for atrial fibrillation. For example, correcting an abnormal thyroid or electrolyte problem, or treating a blocked heart artery. ??? Restoring a normal heart rhythm with an electrical shock (cardioversion) or with an antiarrhythmic medicine (chemical cardioversion). ??? Using medicine to control your heart rate and rhythm. ??? Taking blood-thinning medicines (anticoagulants). These lower the??risk for blood clot and stroke. Blood-thinners range from aspirin and clopidogrel to others such as rivaroxaban and warfarin. ??? Having a procedure such as left atrial appendage closure. In this procedure, a small pouch in the top of your atrium is blocked off. This pouch is where blood clots often form. The procedure can prevent blood clotsand reduce stroke risk without the need for a blood thinner. ??? Doing catheter ablation or a surgical maze procedure. These??procedures use different methods to create scar tissue in certain areas of heart. This stops the abnormal electrical signals that cause AFib.??This may be an option when??medicines don't work. It may be used instead of taking a medicine snf. Your provider may advise other treatment choices. Managing risk factors for stroke and preventing heart failure are important parts of any??treatmentplan for AFib. ?? Home care ??? Take your medicines exactly as directed. Don???t skip doses. ??? Work with your healthcare provider to find the right medicines and doses for you. ??? Learn to take your own pulse. Keepa record of your results. Ask your provider which pulse rates mean that you need medical attention.Slowing your pulse is often the goal of treatment. Ask your provider if it???s OK for you to use anautomatic machine to check your pulse at home. Sometimes these machines don???t count the pulse correctly with AFib. ??? Limit how much coffee, tea, cola, and other drinks with caffeine you have. Askyour provider if you should cut out all caffeine. ??? Don't take enps-etw-atitypf medicines that have caffeine in them. Also don't take medicines with pseudoephedrine. ??? Let your provider know whatmedicines you take. These include prescription and ncrm-nxk-ufypbbm medicines, as well as any supplements. They interfere with some medicines given for AFib. ??? Ask your provider if ??you can drink alcohol. Some people need to cut out??alcohol??to better treat AFib. If you are taking blood-thinnermedicines, alcohol may interfere with them by increasing their effect. ??? Never take stimulants such as amphetamines or cocaine. These drugs can speed up??your heart rate and trigger AFib. ??? Manage your weight. If you are above your ideal body weight, losing excess pounds can reduce your incidence of AFib. ?? Follow-up care Follow up with your healthcare provider as advised. ?? When to call your healthcare provider Call your healthcare provider right away if you have any of the following: ??? Weakness ??? Dizziness ??? Fainting ??? Tiredness (fatigue) ??? Shortness of breath ??? Chest pain with increased activity ??? A change in the usual regularity of your heartbeat, or an unusually fast heartbeat ?? Last Reviewed Date: 2021 ?? 9633-6602 [employer]. All rights reserved. This information is not intended as a substitute for professional medical care. Always follow your healthcare professional's instructions. ?? Patient Care team information Care Team Personnel Name: Barry STALEY, Cristiana Escalante Position: [facility] Associate Professional Member Role: Primary Care Nurse Address: Address: [address] [place] [id number]- Name: Gen Henry MD Position: [facility] Renal MD Member Role: Lifetime Consulting Physician Address: Address: [address] [place] [address], [address] [place] [address]- Name: Ben Mcdowell RN Position: [facility] RN Member Role: Primary Care Nurse Name: Shanae Zamudio Position: [facility] RN Member Role: Primary Care Nurse Name: Sandra Vasquez RN Position: [facility] ED RN W/OE and Tasks Member Role: Primary Care Nurse Name: Alfredo Rivera RN Position: [facility] RN Member Role: Primary Care Nurse Name: Vale Boyd RN Position: [facility] AMB Nurse Member Role: Primary Care Nurse Name: Disha Major RN Position: [facility] Hospital Client Support Consultant Member Role: Primary Care Nurse Name: Deepti James RN Position: [facility] RN Member Role: Primary Care Nurse Name: María New MD Position: Reference Physician Member Role: PCP Address: Address: [address] [place], [place] [address] [address] [place] [address]- Name: Cristy Swartz RN Position: [facility] RN Member Role: Primary Care Nurse Name: Lucinda MCKEON Attending Position: [facility] ED Medicine MD Name: Markos Drake Position: [facility] ED RN W/OE and Tasks Member Role: Patient Care Provider Name: Emy Bartlett LPN Position: [facility] ED RN W/OE and Tasks Member Role: Patient Care Provider Name: Dionna Banerjee Position: [facility] TA Member Role: Patient Care Provider Name: Kolby Cerda Position: [facility] ED TA [facility] Member Role: Veterinary Medical Officer Care Team Related Persons Name: CARLA ARCINIEGA Address: [address] [place] [address]
--- OUTSIDE RECORDS SUMMARY | 2023-07-29 12:06 | XMS_ITS | Continuity of Care Document ---
Author Organization [facility] Address [address] [place] [address]- Care Team Providers Care Stave Bolt Equalizer Name Role Phone Jose VALLE, Drake Cao Primary Care Physician Encounter [facility] Date(s): 12/27/19 - 01/26/20 [facility] [address] [place] [address]- Attending Physician: Aleyda Gibbons Admitting Physician: AdmAleyda fair Referring Physician: AdmtrAleyda Allergies, Adverse Reactions, Alerts Substance Reaction Severity Status NKA Active Medications citalopram 20 mg oral tablet 20 mg, 1, tablet, By Mouth, Daily, # 30 tablet, Refills 0, Tot. Refills 0, Maintenance, 03/02/16 9:57:42, Print Requisition Start Date: 03/02/16 Stop Date: 04/01/16 Status: Ordered Docusate = 100 mg, By Mouth, Daily, 0 Refills, Maintenance, 02/20/16 19:58:02 Start Date: 02/20/16 Status: Ordered metoprolol 25 mg oral tablet 25 mg, By Mouth, 2 times a day, Refills 0, Maintenance, 03/01/16 7:18:53 Start Date: 03/01/16 Status: Ordered midodrine 2.5 mg oral tablet 10 mg, By Mouth, 3 times a day, # 90 tablet, Refills 0, Tot. Refills 0, Maintenance, 03/02/16 9:57:38, Print Requisition Start Date: 03/02/16 Status: Ordered risperiDONE 0.25 mg oral tablet 0.25 mg, 1, tablet, By Mouth, Daily, # 30 tablet, Refills 0, Tot. Refills 0, Maintenance, 03/02/16 9:57:23, Print Requisition Start Date: 03/02/16 Stop Date: 04/01/16 Status: Ordered
--- OUTSIDE RECORDS SUMMARY | 2023-07-29 12:06 | XMS_ITS | Continuity of Care Document ---
Author Organization [facility] Heriberto annetta Address [address] [place] [address] [address] [place] [address]- Care Team Providers Care Exhaust Machine Operator Name Role Phone Jose VALLE, Drake Cao Primary Care Physician En[place] [facility] [place] 09/26/21 - 10/28/21 [facility] [address] [place], [place] [address] Attending Physician: Jose MORGAN MD, Yosi Mayer Referring Physician: Not on Staff, Referring MD Allergies, Adverse Reactions, Alerts No Known Allergies Medications citalopram 20 mg oral tablet 20 [...] Date: 03/02/16 Stop Date: 04/01/16 Status: Ordered Care Team Personnel Name: Jose VALLE, Drake Cao Address: [address] [place] [phone]-
--- OUTSIDE RECORDS SUMMARY | 2023-07-29 12:06 | XMS_ITS | Continuity of Care Document ---
Author Organization [facility] Heriberto annetta Address [address] [place], [place] [address]i [address] [place] [address]- Care Team Providers Care Inspector And Clerk Name Role Phone Jose VALLE, Drake Cao Primary Care Physician [place] [facility] [place]21 - 10/28/21 [facility] [address] [place], [place] [address] Attending Physician: Aleyda Gibbons Admitting Physician: AdmtrAleyda Referring Physician: Admtr, Ar8 Allergies, Adverse Reactions, Alerts No Known Allergies [...] Personnel Name: Jose VALLE, Drake Cao Address: [address] [place] [phone]-
--- OUTSIDE RECORDS SUMMARY | 2023-07-29 12:06 | XMS_ITS | Continuity of Care Document ---
Author Organization [facility] y Address [address] [place] [address]- Care Team Providers Care General Labor Name Role Phone Virgen VALLE, María Castaneda Primary Care Phys[id number] Date(s[facility] 08/07/22 - 10/19/22 [facility] [address], [place] [address] Attending Physician: Jered Recinos DO Admitting Physician: Jered Recinos DO Allergies, Adverse Reactions, Alerts No Known Allergies [...] drug. Start Date: 08/01/22 Status: Ordered gabapentin 800 mg oral tablet 1 tablet = 800 mg, By Mouth, Daily at bedtime, 0 Refills, Maintenance, 08/01/22 16:06:00 EDT, Partial fill upon patient request if the prescription is for a schedule II opioid drug. Start Date: 08/01/22 Status: Ordered lidocaine 4% topical cream 1 application, Topically, Daily at bedtime, Apply q evening shift until seen by energy director 10/11/22, Maintenance, 08/01/22 16:08:00 EDT, Partial fill [...] opioid drug. Start Date: 08/05/22 Status: Ordered MiraLax Powder 1 pack/packet = [...] opioid drug. Start Date: 08/01/22 Status: Ordered Remedy Phytoplex Z-Guard paste 1 [...] atus Informant Obese class II Confirmed Active Patient Care team information Care Team Personnel Name: Barry STALEY, Cristiana Escalante Position: [facility] Associate Professional Member Role: Primary Care Nurse Address: Address: [address] [facility] [place] [address]- [place] Name: Gen Henry MD Position: [facility] Renal MD Member Role: Lifetime Consulting Physician Address: Address: [address] [facility], [address] [place] [address]- [place] Name: Ben Mcdowell RN Position: [facility] RN Member Role: Primary Care Nurse Name: Shanae Zamudio Position: [facility] RN Member Role: Primary Care Nurse Name: Sandra Vasquez RN Position: [facility] ED RN W/OE and Tasks Member Role: Primary Care Nurse Name: Alfredo Rivera RN Position: [facility] RN Member Role: Primary Care Nurse Name: Vale Boyd RN Position: [facility] AMB Nurse Member Role: Primary Care Nurse Name: Disha Major RN Position: [facility] Route Sales Driver Member Role: Primary Care Nurse Name: Deepti James RN Position: [facility] RN Member Role: Primary Care Nurse Name: María New MD Position: Reference Physician Member Role: PCP Address: Address: [address] [place] [address] [address] [place] [address]- [place] Name: Cristy Swartz RN Position: [facility] RN Member Role: Primary Care Nurse Care Team Related Persons Name: KELLY TAPIA Address: home [address] [place] [address] [place] [address]
--- OUTSIDE RECORDS SUMMARY | 2023-07-29 12:06 | XMS_ITS | Continuity of Care Document ---
Author Organization [facility] Address [address] [address]- Care Team Providers Care Hay Sorter Name Role Phone María New MD Primary Care Phys[id number]11/23 - 05/11/23 [facility] [address] [address]- Attending Physician: Xavier Aguilera MD Admitting Physician: Xavier Aguilera MD Referring Physician: María New MD Allergies, Adverse Reactions, Alerts No Known [...] Care team information Care Team Personnel Name: Gaudalupe Marie RN Position: [facility] RN Member Role: Primary Care Nurse Name: Melida Sabillon RN Position: [facility] RN Member Role: Primary Care Nurse Name: Cristiana Reddy NP Position: [facility] Associate Professional Member Role: Primary Care Nurse Address: Address: [address] [place] [address]- Name: Gen Henry MD Position: [facility] Renal MD Member Role: Lifetime Consulting Physician Address: Address: [address] [place] [address], [address] [address] Name: Shanae Zamudio Position: [facility] RN Member Role: Primary Care Nurse Name: Shaina Gonzalez RN Position: [facility] RN Member Role: Primary Care Nurse Name: Disha Carlos Position: [facility] RN Supv Member Role: Primary Care Nurse Name: Sandra Vasquez RN Position: [facility] ED RN W/OE and Tasks Member Role: Primary Care Nurse Name: Alfredo Rivera RN Position: [facility] ED RN W/OE and Tasks Member Role: Primary Care Nurse Name: Vicenta Guzmán RN Position: [facility] RN Member Role: Primary Care Nurse Name: Vale Boyd RN Position: [facility] AMB Nurse Member Role: Primary Care Nurse Name: Disha Major RN Position: [facility] Hospital Field Collector Member Role: Primary Care Nurse Name: Deepti James RN Position: [facility] RN Member Role: Primary Care Nurse Name: María New MD Position: Reference Physician Member Role: PCP Address: Address: [address] [place] [address] [address] [place] [address]- Name: Cristy Swartz RN Position: S RN Member Role: Primary Care Nurse Name: Valentin Shearer RN Position: S RN Member Role: Primary Care Nurse Care Team Related Persons Name: REGINA KELLY Address: [address] [place] [address]
--- OUTSIDE RECORDS SUMMARY | 2023-07-29 12:06 | XMS_ITS | Continuity of Care Document ---
Author Organization [facility] ter Address [address] [place] [id number]- Care Team Providers Care Bottom Hoop Driver Name Role Phone Kade VALLE, Sandrine Sharma Primary Care Physician Encounter [facility] Date(s): 01/24/23 - 02/05/[address] [address]- Discharge Disposition: A-Transfer SNF Attending Physician: Mikayla Sue MD Admitting Physician: Ion Walters MD Referring Physician: Not on Staff, Referring MD Allergies, Adverse Reactions, Alerts No Known Allergies Medications acetaminophen 325 mg oral tablet 650 mg, 2, tablet, By Mouth, Every 4 hours, PRN, Refills 0, Maintenance, as needed for fever/pain, 08/01/22 15:20:00 EDT, Partial fill upon patient request if the prescription is for a schedule II opioid drug. Start Date: 08/01/22 Status: Ordered Acetaminophen Tablet 975 mg, Tablet, By Mouth, 02/04/23 21:00:00 EST Start Date: 02/04/23 Stop Date: 02/04/23 Status: Completed albuterol-ipratropium 3 mg-0.5 mg/3 ml inhalation solution [...] amLODIPine 5 mg oral tablet 5 mg, Tablet, By Mouth, 02/05/23 9:00:00 EST Start Date: 02/05/23 Stop Date: 02/05/23 Status: Completed apixaban 5 mg oral tablet 1 tablet [...] gabapentin 300 mg oral capsule 600 mg, Capsule, By Mouth, 02/04/23 21:00:00 EST Start Date: 02/04/23 Stop Date: 02/04/23 Status: Completed gabapentin 300 mg oral capsule 600 mg, [...] mg oral tablet, extended release 150 mg, XL Tablet, By Mouth, 02/05/23 9:00:00 EST Start Date: 02/05/23 Stop Date: 02/05/23 Status: Completed metoprolol 50 mg oral tablet, extended release [...] Exam Date Time Procedure Performing Provider Status 01/30/23 12:29 PM Chest Portable Critsina Bejarano; Aut h (Verified) Notes: (Chest Portable) Reason For Exam: hypoxia;Other: RESULT: Chest Portable Chest Portable INDICATION: Hypoxia. COMPARISON: 01/24/2023. FINDINGS: LINES AND TUBES: None. LUNGS AND PLEURA: The right lung appears clear. Opacification of the left lower lung and retrocardiac region, although this may be due to patient'soverlying hand. No pleural effusion. No pneumothorax. HEART, MEDIASTINUM AND SHAQUILLE: Mild prominence of the cardiac silhouette, unchanged. Normal mediastinal and hilar contour. BONES AND SOFT TISSUES: No acute abnormality. IMPRESSION: Right lung is clear. Cannot accurately assess left lower lung or retrocardiac region as patient's hand is overlying the region, but no acute abnormality of the left upper or mid lung. I have personally reviewed the images and I agree with this report. WSN: [id number] Ordering Physician: Kolby Brumfield Dictated By: Song Foley MD Dictated Date/Time: 01/30/23 4:42 pm Reviewed By: Arsh Enrique MD Signed By: Arsh Enrique MD Signed Date/Time: 01/30/23 4:47 pm Transcribed By: GARFIELD Transcribed Date/Time: 01/30/23 2:56 pm * Exam Date Time Procedure Performing Provider Status 01/24/23 2:45 PM Chest Portable Radha Gardiner; Shefali (Ve rified) Notes: (Chest Portable) Reason For Exam: Shortness of Breath RESULT: Chest Portable Chest Portable performed semiupright at 2:31 PM Hx of Present Illness: SOB; Reason: Shortness of Breath; Clinical Question(s): CHF COMPARISON: 07/31/2022 and 02/20/2016. FINDINGS: LINES AND TUBES: None. LUNGS AND PLEURA: Small left and trace right pleural effusions with underlying atelectasis. Prominent interstitium bilaterally. Low lung volumes. No pneumothorax. HEART, MEDIASTINUM AND SHAQUILLE: Mild prominence of the cardiac silhouette, unchanged. Normal mediastinal and hilar contour. BONES AND SOFT TISSUES: No acute abnormality. IMPRESSION: Findings consistent with pulmonary vascular congestion, small left and trace right pleural effusions. I have personally reviewed the images and I agree with this report. WSN: [id number] Ordering Physician: Dominic Cline Dictated By: Meche Arguello MD Dictated Date/Time: 01/24/23 3:10 pm Reviewed By: Angelina Perez MD Signed By: Angelina Perez MD Signed Date/Time: 01/24/23 3:15 pm Transcribed By: GARFIELD Transcribed Date/Time: 01/24/23 3:08 pm Vital Signs Most recent to oldest [Reference Range]: 1 2 3 4 Height 186 cm (02/05/23 8:07 AM) 186 cm (02/05/23 12:50 AM) 186 cm (02/04/23 8:10 PM) Weight 133.2 kg (02/05/23 5:29 AM) 124.1 kg (02/04/23 5:22 AM) 132.8 kg (02/03/23 6:01 AM) Oxygen Saturation [94-100 %] 95 % (02/05/23 8:07 AM) 95 % (02/05/23 12:50 AM) 94 % (02/04/23 8:10 PM) Pulse Rate [55-90 bpm] 78 bpm (02/05/23 8:48 AM) 78 bpm (02/05/23 8:07 AM) 85 bpm (02/05/23 12:50 AM) Body Mass Index [18.5-24.99 kg/m2] 38.73 kg/m2 *>HHI* (01/25/23 5:40 PM) 38.73 kg/m2 *>HHI* (01/25/23 5:24 PM) 38.96 kg/m2 *>HHI* (01/25/23 5:14 PM) Blood Pressure [90-138/55-84 mm Hg] 106/63mm Hg (02/05/23 8:48 AM) 106/63mm Hg (02/05/23 8:48 AM) 106/63mm Hg (02/05/23 8:07 AM) Respiratory Rate [16-30 br/min] 18 br/min (02/05/23 8:07 AM) 18 br/min (02/05/23 12:50 AM) 18 br/min (02/04/23 10:31 PM) 18 br/min (02/04/23 10:31 PM) Temperature [96.8-100.4 DegF] 97.2 DegF (02/05/23 8:07 AM) 97.2 DegF (02/05/23 12:50 AM) 97.8 DegF (02/04/23 8:10 PM) Liters per Minute 2 L/min (02/05/23 8:07 AM) 2 L/min (02/05/23 12:50 AM) 2 L/min (02/04/23 2:42 PM) Mode of Delivery (Oxygen) Nasal cannula (02/05/23 8:07 AM) Nasal cannula (02/05/23 12:50 AM) Nasal cannula (02/04/23 8:10 PM) Blood pressure sites Arm, right (02/05/23 8:07 AM) Arm, right (02/05/23 12:50 AM) Arm, right (02/04/23 8:10 PM) Temperature Route Temporal (02/05/23 8:07 AM) Temporal (02/05/23 12:50 AM) Temporal (02/04/23 8:10 PM) Dry Weight 130 kg (01/25/23 5:24 PM) 117 kg (01/24/23 5:00 PM) Weight Obtained Via Bed scale (02/05/23 5:29 AM) Bed scale (02/04/23 5:22 AM) Bed scale (02/03/23 6:01 AM) Social History Social History Type Response Smoking Status Never (less than 100 in lifetime) entered on: 01/29/23 Sex Male Consult note * Tatiana Garay MD: MODIFY, MODIFY, MODIFY, MODIFY, PERFORM Event Display: Consultation Note Authored Date: [id number] Patient: ??ADIEL ARCINIEGA ? Age:??77 Years?Sex:??Male?:??1945?? Chief Complaint/Reason for Consultation pt presenting to the ED from SNF with SOB x2 hrs. hypoxic on in 80s, placed on 2L 91%. wheezing noted. History of Present Illness Consult Information Referring Provider:??Eunice Patel MD Consulting Attending:??Kristofer Maddox, DO Sources of Information:??Patient??(limited historian); [facility] records; Floor nurse Reason for Consultation: refusing vitals and meds Cosmetics Demonstrator: N/A, patient is a kasaan Martiniquais speaker ?? HPI Adiel Arciniega is a 77yo male w/ PMHx of diastolic HF, type 2 DM, atrial fibrillation on eliquis and past psychiatric history of depression, anxiety and PTSD who is currently admitted for decompensated HF 2/2 RSV, with hospital course c/b acute hypercarbic respiratory failure requiring NIV. Geriatrics has been following for delirium and polypharmacy. Psychiatry was consulted today as patient began refusing vitals and medications. ?? On initial encounter, Adiel is sleeping but is easily arousable to voice. He has a significant productive cough. He recognizes that he is at [facility], and states the year is 2022. Heis unable to identify the month, date, or day of the week. He states he is in the hospital due to aviral infection, but has been feeling better. We discuss how he refused vitals earlier today. He s tates that he had a problem identifying the person who was requesting to take his vitals. This senior grant writer guesses that it was likely the nurse, to which Adiel replies I was concerned with the nurse so I withheld. When asked why he was concerned, he states that he didn't know if she was a real nurse due to her?? attitude. ??He adds, I thought the person had a gender identity problem. We discuss the importance of getting his vitals checked due to his ongoing medical issues. He expresses understanding and agrees to get his vitals checked. This senior grant writer goes to get the nurse.??Adiel proceeds to??accept vitals, medications, and blood sugar check while this senior grant writer is in the room. He asks the nurse if she changed her hair. 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 He requests that providers stand to the right of him, because he can see out of hisright eye. He denies any other issues or concerns. ?? Past Psychiatric History Diagnoses: anxiety, depression, PTSD Home meds: alprazolam, buspar, gabapentin, sertraline, olanzapine Prior med trials: risperidone, citalopram ?? Social History Living situation: lives in a jail ([facility]?due to disability Relationships: lives in [place]; 4 children Education: high school Employment/Income: retired : previously in the [employer] ?? Substance Use History Tobacco: none reported Alcohol:??none reported Recreational/Illicit: none reported ?? Family Psychiatric/Substance??Use History: No family history reported. Review of Systems Pertinent positives as listed above in HPI. Otherwise, remainder of review of systems negative. Objective Vital Signs?? Temperature: 98.8 DegF (02/01/23 11:16:00) Temperature Route: Temporal (02/01/23 11:16:00) Pulse Rate: 90 bpm (02/01/23 11:16:00) Heart Rate Monitored:??96 bpm??High (01/31/23 16:00:00) Respiratory Rate: 22 br/min (02/01/23 11:16:00) Systolic Blood Pressure:??142 mm Hg??High (02/01/23 11:16:00) Diastolic Blood Pressure: 75 mm Hg (02/01/23 11:16:00) Blood pressure sites: Arm, right (02/01/23 11:16:00) Mean Arterial Pressure: 97 mm Hg (02/01/23 11:16:00) Pulse Pressure: 67 mm Hg (02/01/23 11:16:00) Oxygen Saturation:??92 %??Low (02/01/23 11:16:00) Liters per Minute: 2 L/min (02/01/23 02:46:00) Mode of Delivery (Oxygen): Room air (02/01/23 11:16:00) Early Warning Score: 7 (02/01/23 11:34:19) ?? Physical Exam Mental Status Exam Appearance: elderly male, lying in bed Behavior: appropriate eye contact Attitude: calm, cooperative, pleasant Motor Activity/MSK: no psychomotor agitation or slowing,??devoid of tics, tremors Mood: better Affect: congruent, euthymic, full range Speech: slow rate, normal volume and tone Thought Process: linear, coherent Thought Content: some confusion and paranoia, otherwise appropriate to encounter Thought Perception:??no AVH reported; does not appear internally stimulated Cognition: A&O x2, fluctuating attention, memory intact to recent events Insight: limited Judgment:??limited ?? Assessment/Plan Adiel Arciniega is a 77yo male w/ PMHx of diastolic HF, type 2 DM, atrial fibrillation on Eliquis and past psychiatric history of depression, anxiety and PTSD who is currently admitted for decompensated HF 2/2 RSV, with hospital course c/b acute hypercarbic respiratory failure requiring NIV. Geriatrics has been following for delirium and polypharmacy. Psychiatry was consulted today as patient began refusing vitals and medications. On initial assessment, Adiel states that he refused vitals because he was unsure of the nurse's identity and felt concerned about his safety. It seems there was some paranoia, likely related to delirium and waxing and waning mental status. Once this senior grant writer verif ies who the nurse is,??Adiel accepts vitals check as well as all of his medications. He expressesunderstanding of the importance of getting his vitals checked and taking his medications. He is pleasant, interactive, and appropriate throughout the encounter. There is no evidence of any current depression, antonio, or psychosis. His presentation is most consistent with multifactorial delirium in the setting of age, change in environment, viral infection,??hypoxic and hypercarbic respiratory failure. Geriatrics has been following along, and we agree with their recommendations. ?? DSM-5 Diagnoses: Delirium ?? Recommendations: -Patient currently accepting vitals and medications -Agree with Geriatrics' recommendations regarding psychiatric medications -Encourage clear and consistent communication with the patient to mitigate any paranoia/suspiciousness -Delirium Prevention Strategies ?? -??Lights on, shades up during the day; lights off, shades drawn at night ?? - Minimize nighttime disruptions ?? - Help keep patient awake and engaged during the day, avoiding overstimulation ?? - Ensure access to glasses/hearing aids if applicable ?? - Keep patient oriented with??clock, calendar, and window with outside view ?? - Maintain good??pain??control ?? - Avoid benzodiazepines, opiates,??and anticholinergic medications as much as possible ?? Thank you for allowing us to participate in this patient's care. The psychiatry service??will sign-off, but we remain available for further questions at [phone]. Please re-consult as needed. ?? Attestation: Case discussed with psychiatry consultation??attending, Dr. Maddox. Recommendations relayed to primary team, Dr. Patel. ?? Tatiana Garay MD PGY3 Department of Psychiatry [facility] Cortext Pager [phone] Histories Allergies Allergies ?(Active and Proposed Allergies Only) NKA? (Severity: Unknown severity, Onset: Unknown) ? Past Medical History/Problem List Active Problems??(1) Obese class II ? Past Surgical History No surgery history documented. ? Social History Tobacco Details:??Use: Never (less than 100 in lifetime). ? Family History No family history recorded. ? Medications Home Medications Acetaminophen (acetaminophen 325 mg oral tablet)?650?Milligram?2?tablet?By Mouth?Every 4 hours?as needed?as needed for fever/pain Alprazolam (Xanax 0.25 mg oral tablet)?0.25?Milligram?1?tablet?By Mouth?Daily at bedtime Alprazolam (Xanax 0.5 mg oral tablet)?0.5?Milligram?1?tablet?By Mouth?Daily in AM Amlodipine (amLODIPine 5 mg oral tablet)?5?Milligram?1?tablet?By Mouth?Daily?HOLD FOR SBP<100 HR<60 apixaban (apixaban 5 mg oral tablet)?1?tab(s)?5?Milligram?By Mouth?2 times a day Bisacodyl (Dulcolax 10 mg rectal suppository)?1?suppository(ies)?10?Milligram?Rectall y?Daily?as needed?as needed for constipation?IF NO RESULTS FROM _x_ MIRALAX BY NEXT SHIFT BusPIRone (busPIRone 7.5 mg oral tablet)?1?tab(s)?7.5?Milligram?By Mouth?2 times a day Docusate-Senna (Senna Plus 50 mg-8.6 mg oral tablet)?2?tab(s)?By Mouth?Daily?as needed?Constipation Emollients, Topical (Cetaphil Moisturizing)?1?higinio?Topically?Daily?Apply lotion to bilateral lower and upper extremities every day shift. Emollients, Topical (Remedy Phytoplex Z-Guard paste)?1?higinio?Topically?3 times a day?Apply to buttock topically every day and evening shift for MASD Finasteride (finasteride 5 mg oral tablet)?1?tab(s)?5?Milligram?By Mouth?Daily?WEAR GLOVES WHEN HANDLING Furosemide (furosemide 40 mg oral tablet)?40?Milligram?1?tablet?By Mouth?Daily Gabapentin (gabapentin 300 mg oral capsule)?300?Milligram?1?capsule?By Mouth?Daily Gabapentin (gabapentin 800 mg oral tablet)?1?tab(s)?800?Milligram?By Mouth?Daily at bedtime Lidocaine Topical (lidocaine 5% topical cream)?1?higinio?Topically?4 times a day Magnesium Oxide (Mag-Ox 400 400 mg oral [...] 3 days nalOXONE (nalOXONE 0.4 mg/mL injectable solution)?0.4?Milligram?Intramuscular?Once?as needed?as needed Ocular Lubricant (Artificial Tears preserved solution)?1?Drops?Eyes, Both?Daily?as needed?for dry eyes Olanzapine (olanzapine 2.5 mg oral tablet)?2.5?Milligram?1?tablet?By Mouth?Daily at bedtime Polyethylene Glycol 3350 (MiraLax Powder)?1?pack/packet?17?gram?By Mouth?Daily?as needed?Constipation Sertraline (Zoloft 50 mg oral tablet)?1?tab(s)?50?Milligram?By Mouth?Daily Simethicone (simethicone 80 mg oral tablet, chewable)?80?Milligram?1?tablet?Chew?Every 12 hours?as needed?Gas Sodium Biphosphate-Sodium Phosphate (Fleet Enema 19 gm-7 gm rectal enema)?118?Milliliter?Rectally?Once?as needed?as needed for constipation?IF NO RESULT FROM DULCOLAX WITHIN 2 HOURS Tamsulosin (tamsulosin 0.4 mg oral capsule)?0.8?Milligram?2?capsule?By Mouth?Daily Trazodone (traZODone 50 mg oral tablet)?50?Milligram?1?tablet?By Mouth?Daily at bedtime ? Inpatient Medications Medications (29) Active SCHEDULED: (15) Albuterol/Ipratropium Inhalation Corine 3mL (Duoneb Inhalation Solution) ??1 vials, BAND Nebulizer, 4 times a day Amlodipine 5 mg Tablet (amLODIPine 5 mg oral tablet) ??5 mg, By Mouth, Daily Apixaban 5 mg Tablet (apixaban 5 mg oral tablet) ??5 mg, By Mouth, 2 times a day BusPIRone 10 mg Tablet (busPIRone 10 mg oral tablet) ??7.5 mg, By Mouth, 2 times a day Erythromycin 0.5% Ophthalmic Ointment (erythromycin 0.5% ophthalmic ointment) ??1 application, Eye,Right, 4 times a day Furosemide 40 mg Tablet (Lasix 40 mg oral tablet) ??40 mg, By Mouth, Daily Gabapentin 400 mg Capsule (gabapentin 400 mg oral capsule) ??800 mg, By Mouth, Daily at bedtime Influenza Quad Adult High Dose (> 65yr) Fluzone 0.7mL (Influenza, Quad High Dose Vaccine (Fluzone High Dose)) ??0.7 mL, Intramuscular, Once Insulin Lispro 100 units/mL Inj (3mL) (Insulin LISPRO Sliding Scale) ??2-10 units, Subcutaneous Injection, 3 times a day before meals Metoprolol 50 mg XL Tablet (metoprolol 50 mg oral tablet, extended release) ??150 mg, By Mouth, Daily NaCl 0.9% Flush 3ml (NaCL 0.9% Flush) ??3 mL, IV Push, Every 8 hours Olanzapine 2.5 mg Tablet (olanzapine 2.5 mg oral tablet) ??2.5 mg, By Mouth, Daily at bedtime Polyethylene Glycol 17 Gm Powder (MiraLax Powder) ??17 Gm 1 pack/packet, By Mouth, Daily Sertraline 25 mg Tablet (Zoloft 25 mg oral tablet) ??75 mg, By Mouth, Daily Tamsulosin 0.4 mg Capsule (tamsulosin 0.4 mg oral capsule) ??0.8 mg, By Mouth, Daily CONTINUOUS: (0) PRN: (14) Acetaminophen 325 mg Tablet (Acetaminophen Tablet) ??650 mg, By Mouth, Every 4 hours Albuterol/Ipratropium Inhalation Corine 3mL (Duoneb Inhalation Solution) ??1 vials, BAND Nebulizer, Every 4 hours Dextromethorphan-Guaifenesin 20 mg-200 mg/10 mL Liqu UD (Robitussin DM Liquid) ??10 mL, By Mouth, Every 4 hours Dextrose Inj Syringe (Dextrose 50% Inj Syringe (25Gm)) ??12.5 Gm, IV Push Slowly, Every 20 minutes Dextrose Inj Syringe (Dextrose 50% Inj Syringe (25Gm)) ??25 Gm, IV Push Slowly, Every 15 minutes Docusate Sodium 100 mg Capsule (Docusate Sodium Capsule) ??100 mg 1 capsule, By Mouth, 2 times a day Glucagon 1 mg Inj (Glucagon Inj) ??1 mg, Intramuscular, Once Glucose 40% Gel (15 Gm) (Glucose Gel) ??15 Gm, By Mouth, Every 20 minutes Glucose 40% Gel (15 Gm) (Glucose Gel) ??30 Gm, By Mouth, Every 20 minutes Lorazepam 0.5 mg Tablet (Ativan 0.5 mg oral tablet) ??0.25 mg, By Mouth, Once Melatonin 3 mg Tablet (Melatonin Tablet) ??3 mg, By Mouth, Daily at bedtime NaCl 0.9% Flush 3ml (NaCL 0.9% Flush) ??3 mL, IV Push, Every 8 hours Senna Tablet ??17.2 mg 2 tablet, By Mouth, Daily Simethicone 80 mg Chewable Tablet (Simethicone Tablet) ??80 mg, Chew, 3 times a day ? Results Recent Labs BLOOD COUNT & DIFF WBC 10.8 k/mm3 ()?? 02/01/2023 06:58 RBC 4.97 m/mm3 ()?? 02/01/2023 06:58 Hgb 15.3 Gm/dL ()?? 02/01/2023 06:58 Hct 47.3 % ()?? 02/01/2023 06:58 MCV 95.2 femtoliters (High)?? 02/01/2023 06:58 MCH 30.8 pg ()?? 02/01/2023 06:58 MCHC 32.3 g/dL (Low)?? 02/01/2023 06:58 Platelet Count 136 k/mm3 (Low)?? 02/01/2023 06:58 RDW-SD 45.2 femtoliters ()?? 02/01/2023 06:58 MPV 11.3 femtoliters ()?? 02/01/2023 06:58 Nucleated RBC (Automated) 0.0 #/100 WBC'S ()?? 02/01/2023 06:58 Abs. NRBC 0.0 k/mm3 ()?? 02/01/2023 06:58 ?? CHEM GENERAL Sodium 141 mmol/L ()?? 02/01/2023 06:58 Potassium 4.3 mmol/L ()?? 02/01/2023 06:58 Chloride 99 mmol/L ()?? 02/01/2023 06:58 Bicarbonate Level 36 mmol/L (High)?? 02/01/2023 06:58 Anion Gap 6 ()?? 02/01/2023 06:58 Glucose Level 125 mg/dL (High)?? 02/01/2023 06:58 Glucose, POC 124 mg/dL (High)?? 02/01/2023 11:14 BUN 31 mg/dL (High)?? 02/01/2023 06:58 Creatinine-Blood 0.9 mg/dL ()?? 02/01/2023 06:58 Estimated GFR Creatinine 89 ML/MIN/1.73 M2 ()?? 02/01/2023 06:58 Calcium 9.4 mg/dL ()?? 02/01/2023 06:58 Magnesium 2.2 mg/dL ()?? 02/01/2023 06:58 ?? URINE OTHER Est Creatinine Clearance 76.95 mL/min ()?? 01/31/2023 04:18 ? Abnormal Labs ?? BLOOD COUNT & DIFF ??Abs. NRBC ??0.0 k/mm3 () ??02/01/2023 06:58 ??MCHC ??32.3 g/dL (Low) ??02/01/2023 06:58 ??MCV ??95.2 femtoliters (High) ??02/01/2023 06:58 ??Nucleated RBC (Automated) ??0.0 #/100 WBC'S () ??02/01/2023 06:58 ??Platelet Count ??136 k/mm3 (Low) ??02/01/2023 06:58 ??RDW-SD ??45.2 femtoliters () ??02/01/2023 06:58 ? CHEM GENERAL ??BUN ??31 mg/dL (High) ??02/01/2023 06:58 ??Bicarbonate Level ??36 mmol/L (High) ??02/01/2023 06:58 ??Estimated GFR Creatinine ??89 ML/MIN/1.73 M2 () ??02/01/2023 06:58 ??Glucose Level ??125 mg/dL (High) ??02/01/2023 06:58 ??Glucose, POC ??124 mg/dL (High) ??02/01/2023 11:14 ? Note: Critical results are displayed in red. ? Blood Glucose Trend Glucose Level:??125 mg/dL??High (02/01/23 06:58:00) Glucose, POC:??124 mg/dL??High (02/01/23 11:14:00) Glucose, POC:??119 mg/dL??High (01/31/23 20:42:00) Glucose, POC:??118 mg/dL??High (01/31/23 18:02:00) ? CBC, CBC w/Diff?? CBC?? WBC: 10.8 k/mm3 (06:58) RBC: 4.97 m/mm3 (06:58) Hct: 47.3 % (06:58) RDW-SD: 45.2 femtoliters (06:58) Nucleated RBC (Automated): 0 #/100 WBC'S (:58) Abs. NRBC: 0 k/mm3 (:58) ? BMP, Mg, and Phos Anion Gap: 6 (06:58) Bicarbonate Level:??36 mmol/L??High (06:58) BUN:??31 mg/dL??High (06:58) Calcium: 9.4 mg/dL (06:58) Chloride: 99 mmol/L (06:58) Creatinine-Blood: 0.9 mg/dL (06:58) Estimated GFR Creatinine: 89 ML/MIN/1.73 M2 (06:58) Glucose Level:??125 mg/dL??High (06:58) Magnesium: 2.2 mg/dL (06:58) Potassium: 4.3 mmol/L (06:58) Sodium: 141 mmol/L (06:58) ?? Coagulation Profile?? No qualifying data available. ?? LFT?? No qualifying data available. ?? Urinalysis?? No qualifying data available. ?? Microbiology ?? COVID-19, RSV, and Flu A/B, Rapid PCR?? Completed?? Source: Nasal Body Site: Nose Collected Dt/Tm: 01/24/2023 14:20 Last Updated Dt/Tm: 01/24/2023 15:54 ? Cardiology Labs Nt-Probnp:??998 pg/mL??High (01/24/23 14:35:00) High Sensitivity Troponin (HSTnT): 19 ng/L (01/25/23 06:37:00) High Sensitivity Troponin (HSTnT): 20 ng/L (01/24/23 14:35:00) ?? Blood Gases?? No qualifying data available. ?? * Kristofer Maddox DO: PERFORM Event Display: Consultation Note Authored Date: ATTENDING PSYCHIATRIST NOTE: ??On the day of service, Dr. Garay??presented this case to me, I reviewed the chart, interviewed the patient, and discussed the case with Dr. Garay. ??I agree with the findings, impression, and recommendations as noted above. ?? * Vick Armas MD: MODIFY Vick Armas MD: MODIFY, MODIFY, MODIFY, MODIFY, MODIFY, MODIFY Event Display: Consultation Note Authored Date: Patient: ??ADIEL ARCINIEGA ? Age:??77 Years?Sex:??Male?:??1945?? Chief Complaint pt presenting to the ED from SNF with SOB x2 hrs. hypoxic on in 80s, placed on 2L 91%. wheezing noted. History of Present Illness Reason for Consult: polypharmacy concern for respiratory depression Referring Physician: Timilsina MD, Sambida Source of Information/reliability:??chart review, Patient, Nurse from [facility]. ?? History of Present Illness: _ ??77-year-old male with PMHx diastolic heart failure, T2DM, A-fib on Eliquis who presented with shortness of breath found to be in decompensated heart failure likely 2/2 RSV infection.?? Hospital course C/B acute hypercarbic respiratory failure requiring NIV, suspected that this is acute on chronicwith noncompliance with home CPAP as well as sedating medications.?? Mental status now improved to 12/10 with bipap and iv diuresis. But developed modesta on 01/27, so iv diuresis were held till today. Mentation still fluctuates. ? Encounter with patient at bedside: Patient was seen at bedside??at first was alert and oriented??to person??place and time.?? He reports that??at [facility]??intermediate facility where he lives he is usually 7 out of 10 in??at this hospital is currently 7 out of 10.?? When patient was seen?? approximately 1 hour later??he was now oriented to day, month or year. ? Baseline Cognitive Function: Patient reports that he has no issues with his cognitive function. I spoke with the nurse at [facility] where he resides and she says that for the past severalmonths he has been declining. ??She reports increased confusion and forgetfulness. ??She also reports psych issues with patient will get??aggressive and verbally abused some of the staff. ??She said normally he is awake and alert and can answer questions when asked. ??He does recognize visitors andstaff by name. ? Mood:??Reports that??his mood is fine but he does have anxiety at baseline. ??He feels that the medicines that you are on helps with this. Patient enjoys:?? Make people feel good ? Balance/Gait/Falls: Wheelchair dependent for 1 year.?? Patient reports that the reason he became wheelchair dependent was that he could not keep his balance. Patient has a history of sacral ulcer.?? [facility] reports the patient??is always sitting and sleeps in a chair.?? They feel that he??can do more??in terms of??movement but he just refuses. ? Nutrition (weight gain or loss, trouble chewing or swallowing, access to food):??Reports a good appetite with no issues, denies any weight loss, trouble chewing, swallowing.?? [facility] reports the [facility]which is also helped with this. ? Elimination (continence, constipation):??Denies any issues with bowel movements or constipation. ??He does wear pull-ups or diapers 09/09 but he says he does not go to the bathroom and then.?? When speaking with the nurse at [facility] she reports that patient is mostly incontinent??but at times does use the toilet. ? Sleep: Patient reports that he has poor sleep??and struggles to fall asleep.?? Normal hours are midnight to 8 AM??and he does not wear any type of mask at night.?? Speaking with??the nurse at [facility] patient sleeps in a chair with his head??bent down. ??When they get his pulse ox at nightit is in the upper 80s to lower 90s. ? 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 ??Vision in the right eye he says is blurry. ??[facility] with the last one being approximately 1 year ago dyany did not help with his vision. Denies any issues with hearing and does not use hearing aids. ? Functional Status Independent = I, needs Assistance = A, Dependent = D ?? ADL:?? needs Assistance with all?Transfers: D Bathing:??A Grooming:??A?? Dressing:??A Feeding:??I Toileting:??A/D ?? IADL:_?Housework:??D Medications:??D Finances:??A, [facility] nurse reports that patient is always on the phone with his bank. Shopping:??D Meal preparation: D Transportation:??D ?? Assistance:? 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 to Carla.?? Per nurse at [facility] Carla has??some issues with alcohol and will often visit when intoxicated??and this has caused some arguments between her and the patient.?? Reports 2 of last visited about a month ago Children:??4.?? [facility] nurse reports that 1 son visits frequently Family/community support:??Does have visitors Lives where:??[facility] Lives with:??Other residents ?? Medication List ? Active Medications ?Ordered ? Acetaminophen: 650 mg, By Mouth, Every 4 hours, PRN: Pain , Mild. ? Albuterol/Ipratropium: 1 vials, BAND Nebulizer, Every 4 hours, PRN: ? Wheezing/Shortness of Breath. ? Amlodipine: 5 mg, tablet, By Mouth, Daily. ? apixaban: 5 mg, tablet, By Mouth, 2 times a day. ? BusPIRone: 7.5 mg, By Mouth, 2 times a day. ? Dextrose 50% in Water: 12.5 Gm, IV Push Slowly, Every 20 minutes, ? PRN: Blood Glucose. ? Dextrose 50% in Water: 25 Gm, IV Push Slowly, Every 15 minutes, PRN: ? Blood Glucose. ? Docusate: 100 mg, 1 capsule, By Mouth, 2 times a day, PRN: ? Constipation. ? Gabapentin: 300 mg, capsule, By Mouth, Daily. ? Gabapentin: 800 mg, By Mouth, Daily at bedtime. ? Glucagon: 1 mg, Intramuscular, Once, PRN: Other. ? Glucose: 15 Gm, By Mouth, Every 20 minutes, PRN: Blood Glucose. ? Glucose: 30 Gm, By Mouth, Every 20 minutes, PRN: Blood Glucose. ? Guaifenesin/Dextromethorphan: 10 mL, By Mouth, Every 4 hours, PRN: ? Cough. ? influenza virus vaccine, inactivated: 0.7 mL, Intramuscular, Once. ? Insulin Lispro: 2-10 units, Subcutaneous Injection, 3 times a day ? before meals. ? Melatonin: 3 mg, By Mouth, Daily at bedtime, PRN: Insomnia. ? Metoprolol: 150 mg, By Mouth, Daily. ? Olanzapine: 2.5 mg, tablet, By Mouth, Daily at bedtime. ? Polyethylene Glycol 3350: 17 Gm, 1 pack/packet, By Mouth, Daily, PRN: ? Constipation. ? Senna: 8.6 mg, 1 tablet, By Mouth, 2 times a day, PRN: Constipation. ? Sertraline: 50 mg, tablet, By Mouth, Daily. ? Simethicone: 80 mg, Chew, 3 times a day, PRN: Gas. ? Sodium Chloride: 3 mL, IV Push, Every 8 hours. ? Sodium Chloride: 3 mL, IV Push, Every 8 hours, PRN: Line/Tube Patency. ? Tamsulosin: 0.8 mg, capsule, By Mouth, Daily. ?Documented ? Acetaminophen: 650 mg, 2 tablet, By Mouth, Every 4 hours, PRN: as ? needed for fever/pain, 0 Refill(s). ? Alprazolam: 0.25 mg, 1 tablet, By Mouth, Daily at bedtime, 0 ? Refill(s). ? Alprazolam: 0.5 mg, 1 tablet, By Mouth, Daily in AM, 0 Refill(s). ? Amlodipine: 5 mg, 1 tablet, By Mouth, Daily, HOLD FOR SBP<100 HR<60. ? apixaban: 5 mg, 1 tablet, By Mouth, 2 times a day. ? Bisacodyl: 10 mg, 1 supp, Rectally, Daily, IF NO RESULTS FROM _x_ ? MIRALAX BY NEXT SHIFT, PRN: as needed for constipation. ? BusPIRone: 7.5 mg, 1 tablet, By Mouth, 2 times a day, 0 Refill(s). ? Docusate-Senna: 2 tablet, By Mouth, Daily, PRN: Constipation. ? Emollients, Topical: 1 application, Topically, Daily, Apply lotion to ? bilateral lower and upper extremities every day shift., 0 Refill(s). ? Emollients, Topical: 1 application, Topically, 3 times a day, Apply ? to buttock topically every day and evening shift for MASD. ? Finasteride: 5 mg, 1 tablet, By Mouth, Daily, WEAR GLOVES WHEN ? HANDLING. ? Furosemide: 40 mg, 1 tablet, By Mouth, Daily. ? Gabapentin: 300 mg, 1 capsule, By Mouth, Daily, 0 Refill(s). ? Gabapentin: 800 mg, 1 tablet, By Mouth, Daily at bedtime, 0 Refill(s). ? Lidocaine Topical: 1 application, Topically, 4 times a day. ? Magnesium Oxide: 400 mg, 1 tablet, By Mouth, 2 times a day, 0 ? Refill(s). ? Melatonin: 3 mg, 1 tablet, By Mouth, Daily at bedtime, for insomnia. ? Methyl Salicylate-Menthol Topical: 1 application, Topically, Every 8 ? hours, PRN: Pain , Moderate. ? Metoprolol: 100 mg, By Mouth, Daily, 0 Refill(s). ? Milk of Magnesia: 30 mL, By Mouth, Daily at bedtime, if NO Bm in 3 ? days, PRN: as needed for constipation, 0 Refill(s). ? nalOXONE: 0.4 mg, Intramuscular, Once, PRN: as needed. ? Ocular Lubricant: 1 drops, Eyes, Both, Daily, PRN: for dry eyes. ? Olanzapine: 2.5 mg, 1 tablet, By Mouth, Daily at bedtime. ? Polyethylene Glycol 3350: 17 Gm, 1 pack/packet, By Mouth, Daily, PRN: ? Constipation, 0 Refill(s). ? Sertraline: 50 mg, 1 tablet, By Mouth, Daily. ? Simethicone: 80 mg, 1 tablet, Chew, Every 12 hours, PRN: Gas, 0 ? Refill(s). ? Sodium Biphosphate-Sodium Phosphate: 118 mL, Rectally, Once, IF NO ? RESULT FROM DULCOLAX WITHIN 2 HOURS, PRN: as needed for constipation. ? Tamsulosin: 0.8 mg, 2 capsule, By Mouth, Daily. ? Trazodone: 50 mg, 1 tablet, By Mouth, Daily at bedtime, 0 Refill(s). ? Medications Inactivated in the Last 72 Hours ? Alprazolam: 0.25 mg, tablet, By Mouth, Daily at bedtime. ? Alprazolam: 0.25 mg, By Mouth, Daily in AM. ? Furosemide: 40 mg, 4 mL, IV Push Slowly, 2 times a day. ? Furosemide: 40 mg, 4 mL, IV Push Slowly, Daily. ? Furosemide: 40 mg, 4 mL, IV Push Slowly, Once.?? Review of Systems Constitutional:??No weight loss, fever, chills, weakness or fatigue. Eyes:??No visual loss,?? + blurred vision right eye,??denies double vision or yellow sclera ENT:??No hearing loss, sneezing, congestion, runny nose or sore throat. Respiratory:??No shortness of breath, + dry cough Cardiovascular:??No chest pain, chest pressure or chest discomfort. No palpitations or pedal edema. Gastrointestinal:??No anorexia, nausea, vomiting or diarrhea. No abdominal pain or blood in stool. Genitourinary:??No burning micturition. No urinary frequency or incontinence. Neurologic:??No headache, dizziness, syncope, unilateral weakness, ataxia, numbness or tingling in the extremities. No change in bowel or bladder control. Musculoskeletal:??No muscle pain, back pain, joint pain or stiffness. + rear end pain from sitting Skin:??No rash or itching. Psychiatric:??No depression or anxiety. Physical Exam Vitals & Measurements T:??97.9?F?? TMIN:??97.8?F?? TMAX:??98.2?F?? HR:??89??(Monitored)?? RR:??25?? BP:??107/52?? SpO2:??96%?? WT:??137.7??kg?? CAM??negative ?? Gen - alert NAD, resting in bed HEENT - anicteric sclera, EOMI Cardiovascular - RRR w/o murmur/gallop Respiratory - wheezes heard in left lung, decreased breath sounds in right lung; no use of accessory muscles Gastrointestinal - soft, NT/ND, BS+ Ext - 2+ lower extremity edema; Neuro - AOx2 (person, place); moving all extremities, CN intact, 4/4 strength bilaterally Skin - no rash, no pressure wound Psy - calm, cooperative, Assessment/Plan Impression ??77-year-old male with PMHx diastolic heart failure, T2DM, A-fib on Eliquis who presented with shortness of breath found to be in decompensated heart failure likely 2/2 RSV infection.?? Hospital course C/B acute hypercarbic respiratory failure requiring NIV, suspected that this is acute on chronicwith noncompliance with home CPAP as well as sedating medications.?? Mental status now improved to 12/10 with bipap and iv diuresis. But developed modesta on 01/27, so iv diuresis were held till today. Mentation still fluctuates. ?? MIND #Acute Metabolic encephalopathy/ At risk for delirium - likely multifactorial due to - age, change in environment,??hypoxic and hyperacarbic resp fail, underlying bipolar + PTSD - CAM negative but for the most part lethargic but easily arousible. When aroused, able to have meaningful conversation - - Please try non-pharmacological interventions first for delirium: - frequent reorientation/redirection/reassurance, encourage family visits/calls - adequate control of pain - monitor for urinary retention, constipation - sleep hygiene (bright light in day, dim at night, limit VS checks/interruptions at nighttime) - encourage oral hydration and nutrition - window side bed if possible - engage during the daytime, so patient sleeps more at night - out of bed to chair during the daytime, ambulate TID with assistance - 1:1 sitter if needed -??please avoid restraints as they worsen delirium -??Please avoid benzos, antihistamines, anticholinergics ?? #Cognitive Impairment/ Dementia with/without behavioral disturbance - possibly some underlying dementia, however symptoms also explained??by potential hypercarbia and should be evaluated and treated first. - patient would need appropriate??and adequate treatment for both sleep apnea and??anxiety prior tomaking diagnosis of dementia. ?? #Depression?? #Anxiety -??reports baseline anxiety, recommend increasing Sertraline to 75mg daily. ? MEDICATION #Polypharmacy/Medication management -??discontinue morning gabapentin dose and see how patient does. Has little complaints about??pain at this time.??May potentially help with??the lethargy. - Continue to hold alprazolam at this time, concern for resp depression and aiding CO2 retention. - Schedule DuoNeb QID to help with wheezing. - Schedule bowel regimen to help with constipation - consider UA if concern for UTi driving symptoms ?? MOBILITY #At risk of falls / Recurrent Falls, physical deconditioning WheelChair dependent at baseline. Mobilize as much as possible/Ambulate TID with assistance PT consult: Pt presenting from SNF- approp for d/c back to facility once medically approp. ?? MULTICOMPLEXICITY ??Hypercarbia/CO2 retention - possibly secondary to AGUEDA vs. COPD. less likely COPD as patient is never smoker. Additional component of respiratory depression from??polypharmacy. -??Possibly some underlying dementia, however symptoms can be explained from hypercarbia -??Patient does not use??CPAP or BIPAP at home??and underlying AGUEDA could be driving his altering mental status. Ensure patient is using BIPAP at night. -??Recommend repeat ABG at this time to further assess CO2 retention. ? MATTER MOST #Advanced Directives Health Care Proxy: Carla, . Was unable to get in touch with her via phone today Code Status: FULL per [facility] ? Thank you for referral, please page Geriatrics Inpatient Consult Service if we can provide further assistance in patient care. Attending Attestation ? Attending Attestation:??I have personally examined and reviewed the patient???s medical history,findings on examination, diagnosis and treatment. ??I have discussed the case and its management with the resident and agree with the findings and plan as documented in the resident???s note. ? Vick Armas MD Geriatric medicine [phone] Problem List/Past Medical History Ongoing Obese class II Medications Inpatient Acetaminophen Tablet, 650 mg, By Mouth, Every 4 hours, PRN amLODIPine 5 mg oral tablet, 5 mg, By Mouth, Daily apixaban 5 mg oral tablet, 5 mg, By Mouth, 2 times a day busPIRone 10 mg oral tablet, 7.5 mg, By Mouth, 2 times a day Dextrose 50% Inj Syringe (25Gm), 12.5 Gm, IV Push Slowly, Every 20 minutes, PRN Dextrose 50% Inj Syringe (25Gm), 25 Gm, IV Push Slowly, Every 15 minutes, PRN Docusate Sodium Capsule, 100 mg= 1 capsule, By Mouth, 2 times a day, PRN Duoneb Inhalation Solution, 1 vials, BAND Nebulizer, Every 4 hours, PRN gabapentin 300 mg oral capsule, 300 mg, By Mouth, Daily gabapentin 400 mg oral capsule, 800 mg, By Mouth, Daily at bedtime Glucagon Inj, 1 mg, Intramuscular, Once, PRN Glucose Gel, 15 Gm, By Mouth, Every 20 minutes, PRN Glucose Gel, 30 Gm, By Mouth, Every 20 minutes, PRN Influenza, Quad High Dose Vaccine (Fluzone High Dose), 0.7 mL, Intramuscular, Once Insulin LISPRO Sliding Scale, 2-10 units, Subcutaneous Injection, 3 times a day before meals Melatonin Tablet, 3 mg, By Mouth, Daily at bedtime, PRN metoprolol 50 mg oral tablet, extended release, 150 mg, By Mouth, Daily MiraLax Powder, 17 Gm= 1 pack/packet, By Mouth, Daily, PRN NaCL 0.9% Flush, 3 mL, IV Push, Every 8 hours NaCL 0.9% Flush, 3 mL, IV Push, Every 8 hours, PRN olanzapine 2.5 mg oral tablet, 2.5 mg, By Mouth, Daily at bedtime Robitussin DM Liquid, 10 mL, By Mouth, Every 4 hours, PRN Senna Tablet, 8.6 mg= 1 tablet, By Mouth, 2 times a day, PRN Simethicone Tablet, 80 mg, Chew, 3 times a day, PRN tamsulosin 0.4 mg oral capsule, 0.8 mg, By Mouth, Daily Zoloft 50 mg oral tablet, 50 mg, By Mouth, Daily Home acetaminophen 325 mg oral tablet, 650 mg= 2 tablet, By Mouth, Every 4 hours, PRN amLODIPine 5 mg oral tablet, 5 mg= 1 tablet, By Mouth, Daily apixaban 5 mg oral tablet, 5 mg= 1 tablet, By Mouth, 2 times a day Artificial Tears preserved solution, 1 drops, Eyes, Both, Daily, PRN busPIRone 7.5 mg oral tablet, 7.5 mg= 1 tablet, By Mouth, 2 times a day Cetaphil Moisturizing, 1 application, Topically, Daily Dulcolax 10 mg rectal suppository, 10 mg= 1 supp, Rectally, Daily, PRN finasteride 5 mg oral tablet, 5 mg= 1 tablet, By Mouth, Daily Fleet Enema 19 gm-7 gm rectal enema, 118 mL, Rectally, Once, PRN furosemide 40 mg oral tablet, 40 mg= 1 tablet, By Mouth, Daily gabapentin 300 mg oral capsule, 300 mg= 1 capsule, By Mouth, Daily gabapentin 800 mg oral tablet, 800 mg= 1 tablet, By Mouth, Daily at bedtime lidocaine 5% topical cream, 1 application, Topically, 4 times a day Mag-Ox 400 400 mg oral tablet, 400 mg= 1 tablet, By Mouth, 2 times a day melatonin 3 mg oral tablet, 3 mg= 1 tablet, By Mouth, Daily at bedtime metoprolol 100 mg oral tablet, extended release, 100 mg, By Mouth, Daily MiraLax Powder, 17 Gm= 1 pack/packet, By Mouth, Daily, PRN MOM Liquid, 30 mL, By Mouth, Daily at bedtime, PRN Muscle Rub 10%-15% topical cream, 1 application, Topically, Every 8 hours, PRN nalOXONE 0.4 mg/mL injectable solution, 0.4 mg, Intramuscular, Once, PRN olanzapine 2.5 mg oral tablet, 2.5 mg= 1 tablet, By Mouth, Daily at bedtime Remedy Phytoplex Z-Guard paste, 1 application, Topically, 3 times a day Senna Plus 50 mg-8.6 mg oral tablet, 2 tablet, By Mouth, Daily, PRN simethicone 80 mg oral tablet, chewable, 80 mg= 1 tablet, Chew, Every 12 hours, PRN tamsulosin 0.4 mg oral capsule, 0.8 mg= 2 capsule, By Mouth, Daily traZODone 50 mg oral tablet, 50 mg= 1 tablet, By Mouth, Daily at bedtime Xanax 0.25 mg oral tablet, 0.25 mg= 1 tablet, By Mouth, Daily at bedtime Xanax 0.5 mg oral tablet, 0.5 mg= 1 tablet, By Mouth, Daily in AM Zoloft 50 mg oral tablet, 50 mg= 1 tablet, By Mouth, Daily Allergies NKA Social History Tobacco Use: Never (less than 100 in lifetime). Lab Results Test Name Test Result Date/Time pH 7.36 01/26/2023 12:12 EST pCO2 66 mm Hg 01/26/2023 12:12 EST pO2 92 mm Hg 01/26/2023 12:12 EST Bicarbonate, Estimated 36 mmol/L 01/26/2023 12:12 EST Specimen Type - Blood Gas ARTERIAL 01/26/2023 12:12 EST Percent O2 (FIO2) 40 01/26/2023 12:12 EST WBC 8.7 k/mm3 01/29/2023 00:36 EST Hgb 15.1 Gm/dL 01/29/2023 00:36 EST Platelet Count 120 k/mm3 01/29/2023 00:36 EST BUN 42 mg/dL 01/29/2023 00:36 EST Creatinine-Blood 1.1 mg/dL 01/29/2023 00:36 EST * Demetria Fuentes RN: PERFORM, SIGN, VERIFY Event Display: Consultation Note Authored Date: [id number] Patient: ADIEL ARCINIEGA Age: 77 years Sex: Male : 1945 Associated Diagnoses: None Author: Demetria Fuentes RN History of Presenting Problem coccyx wound pannus Date of Service 01/29/2023 Reason for referral Wound: Description Location: Buttocks Etiology: MASD (moisture associated skin damage) with friction component Wound Bed: Mirrored hyperpigmentation consistent with chronic moisture exposure, 'grated' appearance of skin loss with scattered areas of annie red discoloration, desquamation Edges: Poorly defined Goals: Offload pressure, moisture management and barrier protection with enhanced autolytic debridement . Wound: Description Location: Pannus Etiology: MASD (moisture associated skin damage): Intertrigo Wound Bed: Mirrored erythema with linear partial thickness skin loss along fold Edges: Poorly defined Goals: Moisture management . Wound RN consult entered to assess buttocks, panus fold wounds and make topical recommendations. Patient was admitted on 01/24/23, lives SNF, for hypoxia and cough, RSV+. Significant PMH includes CHF, DM2, CKD and Afib; see H&P for further details. Recommendations/assessment discerned via photo, collaboration with direct care RN & brief chart review; Wound RN did not go to bedside. Incont inent of urine and stool. [facility] connecting with MAIA Paz, stated patient utilizes wheelchair at facility, but inpatient not OOB and 2-3 assist. Recommendations sent via [facility] connect to MD Mikayla Sue. Recommendations: 1.) Buttocks: Cleanse with pH balanced cleanser. Pat dry. Apply thin layer of Triad to wound bed. Only pat and dab, no scrub and rub, when soiling occurs. Reapply thin layer PRN after incontinence care. *Do NOT utilize brief due to moisture trapping 2.) Pannus: Interdry -Lay a single layer of fabric in the skin fold, placing one edge into the base of the fold. -Gently smooth the rest of the fabric over the skin, keeping it flat. Leave at least 2 inches of the fabric exposed outside the skin fold. -Secure the fabric in one of several ways: with the skin fold, with a small amount of skin-friendlytape, or tucked under clothing. -Remove the fabric before bathing and reuse it when finished. When removing, gently separate the skin fold and lift away. -Do not use creams, ointments or powders with InterDry as it may interfere with product efficacy. -Each piece of InterDry may be used up to 5 days, depending on fabric soiling, odor, amount of moisture and general skin condition. Replace InterDry if it becomes soiled with blood, urine or stool. 3.) Continue use of specialty bed/low air loss mattress 4.) Turn and reposition every 2 hours and PRN 5.) Continue incontinence care as well as moisture management; do not utilize Mepilex foam dressingwith incontinence 6.) Do not utilize brief use 7.) Continue to offload bony prominences 8.) Continue to provide optimal nutritional support 9.) Provide Gaymar cushion to chair when patient OOB Please reconsult wound care RNs for deterioration in wound/skin status Patient at increased risk for pressure injury development d/t mobility, moisture and current integumentary status, please ensure to utilize pressure prevention interventions Plan Time spent 16-30 minutes * Albaro VALLE, Basim: PERFORM Event Display: Consult Authored Date: Patient: ??ADIEL ARCINIEGA ? Age:??77 Years?Sex:??Male?:??1945?? Chief Complaint/Reason for Consultation pt presenting to the ED from SNF with SOB x2 hrs. hypoxic on in 80s, placed on 2L 91%. wheezing noted. History of Present Illness 77-year-old male patient with a past medical history of diastolic heart failure, type 2 diabetes mellitus, A-fib on Eliquis who presents due to shortness of breath.?? Was found to be in decompensatedheart secondary to RSV infection.?? Course complicated by acute hypercarbic respiratory failure requiring.?? Initial pCO2 was 83 he was placed on BiPAP repeat pCO2 remains the same at which point he was switched to AVAPS.?? Repeat pCO2 trending down now at 73 with a pH of 7.31.?? On my examination,patient was waking up to voice commands and following basic commands.?? Was in no acute distress and tolerating AVAPS well.?? His minutes ventilation was 16. Review of Systems Unable to obtain due to mental status. Objective Vital Signs?? Temperature: 98.6 DegF (01/26/23 04:00:00) Temperature Route: Axillary (01/26/23 04:00:00) Pulse Rate:??114 bpm??High (01/26/23 03:04:00) Heart Rate Monitored:??102 bpm??High (01/26/23 06:00:00) Respiratory Rate: 21 br/min (01/26/23 06:00:00) Systolic Blood Pressure: 121 mm Hg (01/26/23 06:00:00) Diastolic Blood Pressure: 75 mm Hg (01/26/23 06:00:00) Blood pressure sites: Arm, left (01/26/23 06:00:00) Mean Arterial Pressure: 103 mm Hg (01/26/23 03:04:00) Pulse Pressure: 46 mm Hg (01/26/23 06:00:00) Oxygen Saturation: 98 % (01/26/23 06:00:00) Liters per Minute: 11 L/min (01/25/23 22:44:00) Mode of Delivery (Oxygen): BiPAP (01/26/23 06:00:00) FiO2: 40 % (01/26/23 06:00:00) Early Warning Score: 7 (01/26/23 06:56:37) ? Physical Exam GEN: NAD, comfortable on PPV HEENT: Supple neck, reactive pupils. CVS: Normal S1, Normal S, RRR. Lungs: Clear bilateral air entry, no w/r/r Abdomen: Soft, non tender, non distended, +BS Extremities: Warm and well perfused Assessment/Plan 72-year-old male patient with past medical history of diastolic heart failure, with decompensated heart failure secondary to RSV infection.?? Course complicated by hypercarbic respiratory failure requiring PPV. ?? Likely multifactorial in the setting of decompensated heart failure, possible medication driven as he is on gabapentin, Xanax both small dose, sertraline so could have sedating effects. ?? Recommend continuing AVAPS support at current set settings, heart failure management per primary team.?? Limiting use of benzodiazepine.?? There is no indication for ICU admission. ?? Case d/w Dr. Rios. Basim Irvin MD. Histories Allergies Allergies ?(Active and Proposed Allergies Only) NKA? (Severity: Unknown severity, Onset: Unknown) ? Past Medical History/Problem List Active Problems??(1) Obese class II ? Past Surgical History No surgery history documented. ? Social History No social history documented. ? Medications Home Medications Acetaminophen (acetaminophen 325 mg oral tablet)?650?Milligram?2?tablet?By Mouth?Every 4 hours?as needed?as needed for fever/pain Alprazolam (Xanax 0.25 mg oral tablet)?0.25?Milligram?1?tablet?By Mouth?Daily at bedtime Alprazolam (Xanax 0.5 mg oral tablet)?0.5?Milligram?1?tablet?By Mouth?Daily in AM Amlodipine (amLODIPine 5 mg oral tablet)?5?Milligram?1?tablet?By Mouth?Daily?HOLD FOR SBP<100 HR<60 apixaban (apixaban 5 mg oral tablet)?1?tab(s)?5?Milligram?By Mouth?2 times a day Bisacodyl (Dulcolax 10 mg rectal suppository)?1?suppository(ies)?10?Milligram?Rectall y?Daily?as needed?as needed for constipation?IF NO RESULTS FROM _x_ MIRALAX BY NEXT SHIFT BusPIRone (busPIRone 7.5 mg oral tablet)?1?tab(s)?7.5?Milligram?By Mouth?2 times a day Docusate-Senna (Senna Plus 50 mg-8.6 mg oral tablet)?2?tab(s)?By Mouth?Daily?as needed?Constipation Emollients, Topical (Cetaphil Moisturizing)?1?higinio?Topically?Daily?Apply lotion to bilateral lower and upper extremities every day shift. Emollients, Topical (Remedy Phytoplex Z-Guard paste)?1?higinio?Topically?3 times a day?Apply to buttock topically every day and evening shift for MASD Finasteride (finasteride 5 mg oral tablet)?1?tab(s)?5?Milligram?By Mouth?Daily?WEAR GLOVES WHEN HANDLING Furosemide (furosemide 40 mg oral tablet)?40?Milligram?1?tablet?By Mouth?Daily Gabapentin (gabapentin 300 mg oral capsule)?300?Milligram?1?capsule?By Mouth?Daily Gabapentin (gabapentin 800 mg oral tablet)?1?tab(s)?800?Milligram?By Mouth?Daily at bedtime Lidocaine Topical (lidocaine 5% topical cream)?1?higinio?Topically?4 times a day Magnesium Oxide (Mag-Ox 400 400 mg oral [...] 3 days nalOXONE (nalOXONE 0.4 mg/mL injectable solution)?0.4?Milligram?Intramuscular?Once?as needed?as needed Ocular Lubricant (Artificial Tears preserved solution)?1?Drops?Eyes, Both?Daily?as needed?for dry eyes Olanzapine (olanzapine 2.5 mg oral tablet)?2.5?Milligram?1?tablet?By Mouth?Daily at bedtime Polyethylene Glycol 3350 (MiraLax Powder)?1?pack/packet?17?gram?By Mouth?Daily?as needed?Constipation Sertraline (Zoloft 50 mg oral tablet)?1?tab(s)?50?Milligram?By Mouth?Daily Simethicone (simethicone 80 mg oral tablet, chewable)?80?Milligram?1?tablet?Chew?Every 12 hours?as needed?Gas Sodium Biphosphate-Sodium Phosphate (Fleet Enema 19 gm-7 gm rectal enema)?118?Milliliter?Rectally?Once?as needed?as needed for constipation?IF NO RESULT FROM DULCOLAX WITHIN 2 HOURS Tamsulosin (tamsulosin 0.4 mg oral capsule)?0.8?Milligram?2?capsule?By Mouth?Daily Trazodone (traZODone 50 mg oral tablet)?50?Milligram?1?tablet?By Mouth?Daily at bedtime ? Inpatient Medications Medications (23) Active SCHEDULED: (14) Alprazolam 0.25 mg Tablet (Xanax 0.25 mg oral tablet) ??0.25 mg, By Mouth, Daily at bedtime Alprazolam 0.5 mg Tablet (Xanax 0.5 mg oral tablet) ??0.5 mg, By Mouth, Daily in AM Amlodipine 5 mg Tablet (amLODIPine 5 mg oral tablet) ??5 mg, By Mouth, Daily Apixaban 5 mg Tablet (apixaban 5 mg oral tablet) ??5 mg, By Mouth, 2 times a day BusPIRone 10 mg Tablet (busPIRone 10 mg oral tablet) ??7.5 mg, By Mouth, 2 times a day Furosemide Inj (Lasix ??Inj) ??40 mg 4 mL, IV Push Slowly, 2 times a day Gabapentin 300 mg Capsule (gabapentin 300 mg oral capsule) ??300 mg, By Mouth, Daily Gabapentin 400 mg Capsule (gabapentin 400 mg oral capsule) ??800 mg, By Mouth, Daily at bedtime Influenza Quad Adult High Dose (> 65yr) Fluzone 0.7mL (Influenza, Quad High Dose Vaccine (Fluzone High Dose)) ??0.7 mL, Intramuscular, Once Metoprolol 50 mg XL Tablet (metoprolol 50 mg oral tablet, extended release) ??150 mg, By Mouth, Daily NaCl 0.9% Flush 3ml (NaCL 0.9% Flush) ??3 mL, IV Push, Every 8 hours Olanzapine 2.5 mg Tablet (olanzapine 2.5 mg oral tablet) ??2.5 mg, By Mouth, Daily at bedtime Sertraline 50 mg Tablet (Zoloft 50 mg oral tablet) ??50 mg, By Mouth, Daily Tamsulosin 0.4 mg Capsule (tamsulosin 0.4 mg oral capsule) ??0.8 mg, By Mouth, Daily CONTINUOUS: (0) PRN: (9) Acetaminophen 325 mg Tablet (Acetaminophen Tablet) ??650 mg, By Mouth, Every 4 hours Albuterol/Ipratropium Inhalation Corine 3mL (Duoneb Inhalation Solution) ??1 vials, BAND Nebulizer, Every 4 hours Dextromethorphan-Guaifenesin 20 mg-200 mg/10 mL Liqu UD (Robitussin DM Liquid) ??10 mL, By Mouth, Every 4 hours Docusate Sodium 100 mg Capsule (Docusate Sodium Capsule) ??100 mg 1 capsule, By Mouth, 2 times a day Melatonin 3 mg Tablet (Melatonin Tablet) ??3 mg, By Mouth, Daily at bedtime NaCl 0.9% Flush 3ml (NaCL 0.9% Flush) ??3 mL, IV Push, Every 8 hours Polyethylene Glycol 17 Gm Powder (MiraLax Powder) ??17 Gm 1 pack/packet, By Mouth, Daily Senna Tablet ??8.6 mg 1 tablet, By Mouth, 2 times a day Simethicone 80 mg Chewable Tablet (Simethicone Tablet) ??80 mg, Chew, 3 times a day ? Results Recent Labs BLOOD COUNT & DIFF WBC 10.0 k/mm3 ()?? 01/25/2023 06:37 RBC 5.00 m/mm3 ()?? 01/25/2023 06:37 Hgb 15.5 Gm/dL ()?? 01/25/2023 06:37 Hct 47.9 % ()?? 01/25/2023 06:37 MCV 95.8 femtoliters (High)?? 01/25/2023 06:37 MCH 31.0 pg ()?? 01/25/2023 06:37 MCHC 32.4 g/dL (Low)?? 01/25/2023 06:37 Platelet Count 122 k/mm3 (Low)?? 01/25/2023 06:37 RDW-SD 48.1 femtoliters (High)?? 01/25/2023 06:37 MPV 11.0 femtoliters ()?? 01/25/2023 06:37 Nucleated RBC (Automated) 0.0 #/100 WBC'S ()?? 01/25/2023 06:37 Abs. NRBC 0.0 k/mm3 ()?? 01/25/2023 06:37 Abs. Neut 8.1 k/mm3 (High)?? 01/25/2023 06:37 Abs. Lymph 0.6 k/mm3 (Low)?? 01/25/2023 06:37 Abs. [place] 1.1 k/mm3 ()?? 01/25/2023 06:37 Abs. Eo 0.0 k/mm3 ()?? 01/25/2023 06:37 Abs. Baso 0.0 k/mm3 ()?? 01/25/2023 06:37 Neut % 81.3 % (High)?? 01/25/2023 06:37 Lymph % 6.3 % (Low)?? 01/25/2023 06:37 [place] % 11.4 % (High)?? 01/25/2023 06:37 Eos % 0.4 % ()?? 01/25/2023 06:37 Baso % 0.3 % ()?? 01/25/2023 06:37 Imm Gran 0.3 % ()?? 01/25/2023 06:37 Abs. Imm Gran 0.0 k/mm3 ()?? 01/25/2023 06:37 ?? BLOOD GAS pH 7.31 (Low)?? 01/26/2023 03:29 pCO2 73 mm Hg (Critical)?? 01/26/2023 03:29 pO2 113 mm Hg (High)?? 01/26/2023 03:29 Bicarbonate, Estimated 36 mmol/L (High)?? 01/26/2023 03:29 Specimen Type - Blood Gas ARTERIAL ()?? 01/26/2023 03:29 Percent O2 (FIO2) 40 ()?? 01/26/2023 03:29 ?? CARDIAC High Sensitivity Troponin (HSTnT) 19 ng/L ()?? 01/25/2023 06:37 ?? CHEM GENERAL Sodium 141 mmol/L ()?? 01/25/2023 06:37 Potassium 4.7 mmol/L ()?? 01/25/2023 06:37 Chloride 98 mmol/L ()?? 01/25/2023 06:37 Bicarbonate Level 34 mmol/L (High)?? 01/25/2023 06:37 Anion Gap 9 ()?? 01/25/2023 06:37 Glucose Level 141 mg/dL (High)?? 01/25/2023 06:37 Glucose, POC 163 mg/dL (High)?? 01/25/2023 19:43 BUN 22 mg/dL ()?? 01/25/2023 06:37 Creatinine-Blood 1.1 mg/dL ()?? 01/25/2023 06:37 Estimated GFR Creatinine 70 ML/MIN/1.73 M2 ()?? 01/25/2023 06:37 Calcium 8.9 mg/dL ()?? 01/25/2023 06:37 Phosphorus 3.0 mg/dL ()?? 01/25/2023 06:37 Magnesium 1.7 mg/dL ()?? 01/25/2023 06:37 Protein, Total 6.4 Gm/dL ()?? 01/25/2023 06:37 Albumin 4.0 Gm/dL ()?? 01/25/2023 06:37 AG Ratio 1.7 ()?? 01/25/2023 06:37 Alkaline Phosphatase 107 units/L ()?? 01/25/2023 06:37 AST (SGOT) 27 units/L ()?? 01/25/2023 06:37 ALT (SGPT) 12 units/L ()?? 01/25/2023 06:37 Bilirubin, Total 1.5 mg/dL (High)?? 01/25/2023 06:37 ? * Mallory Rios MD: PERFORM Event Display: Consult Authored Date: Patient seen and examined, data reviewed, case and management discussed with the??house staff/fellow/ DOMESTIC HOUSEKEEPER/ PA on rounds on the date of service. I confirmed the findings and agree with the documentation of the assessment and plan of care we developed together as detailed above with the following highl ights/additions/modifications. ?? Admission evaluation note * Ahmad Tri VALLE: PERFORM Event Display: Admission Note Authored Date: [id number] Patient: ??ADIEL ARCINIEGA ? Age:??77 Years?Sex:??Male?:??1945?? Chief Complaint/Reason for Consultation pt presenting to the ED from SNF with SOB x2 hrs. hypoxic on in 80s, placed on 2L 91%. wheezing noted. History of Present Illness Mr. Arciniega is a 77-year-old gentleman with a PMH of CHF, type 2 diabetes, CKD?? and A-fib on Eliquis who presents due to hypoxia and cough. ?? Patient currently lives in the SNF where he has had cough and congestion for the past 2 days.?? He states that he was not receiving his medications over the past 2 days.?? His SpO2 was found to be 70% hence EMS was called.?? He was placed on 6 L nasal cannula which improved his SpO2 to 91%.?? Currently he has no other active complaints, denies shortness of breath, chest pain, abdominal pain, nause a/vomiting/diarrhea.?? He states he does not want to return to his nursing facility. ?? On arrival to the ER he was tachycardic 112, 90% on 4 L nasal cannula.?? Labs showed unremarkable CBC, bicarb 34, creatinine 1.1, NT proBNP 998, troponin 20.?? RSV PCR positive.?? Chest x-ray showed pulmonary vascular congestion and small bilateral pleural effusions.?? He was diuresed with 40 mgIV Lasix.?? On my evaluation he has no active complaints and is on 6 L nasal cannula. Review of Systems All systems reviewed and negative except as indicated in HPI. Objective Vital Signs?? Temperature: 98.1 DegF (01/25/23 04:30:00) Temperature Route: Oral (01/25/23 04:30:00) Pulse Rate:??109 bpm??High (01/25/23 06:07:00) Respiratory Rate: 27 br/min (01/25/23 06:07:00) Systolic Blood Pressure: 109 mm Hg (01/25/23 05:28:00) Diastolic Blood Pressure: 65 mm Hg (01/25/23 05:28:00) Blood pressure sites: Arm, right (01/25/23 05:28:00) Mean Arterial Pressure: 94 mm Hg (01/24/23 17:00:00) Pulse Pressure: 44 mm Hg (01/25/23 05:28:00) Oxygen Saturation: 94 % (01/25/23 06:07:00) Liters per Minute: 6 L/min (01/25/23 06:07:00) Mode of Delivery (Oxygen): Nasal cannula (01/25/23 06:07:00) Early Warning Score: 8 (01/25/23 06:30:08) ? Intake/Output? No Data Available ? Physical Exam Constitutional: Alert, in no acute distress. Head EENT: Extraocular muscle movement intact.??Moist mucous membranes.?? Neck: Supple. No JVD. Respiratory: Bilateral crackles, on 6L NC. Cardiovascular: S1S2 regular. No murmurs, rubs or gallops. Gastrointestinal: Abdomen soft, non-tender, non-distended. Normal bowel sounds. Genitourinary: No CVA tenderness. Extremities: 2+??lower extremity pitting??edema. No cyanosis or clubbing. Neurologic: AAOx3, Speech slow. No focal neurological deficits. Assessment/Plan 77-year-old gentleman with a PMH of CHF, type 2 diabetes, CKD?? and A-fib on Eliquis who presents due to hypoxia and cough. Admitted for management of CHF exacerbation. ?? Acute on chronic diastolic heart failure (I50.33):? History of hypertrophic cardiomyopathy (Z86.79):? Presented with acute hypoxic respiratory failure and cough in setting of fluid overload as evidenceby physical exam, lab, and CXR findings - diurese with 40mg IV lasix BID - fluid goal -1L - continue metoprolol - monitor I/Os - daily weights - replete electrolytes - wean O2 as tolerated ?? Atrial fibrillation (I48.91):? Longstanding paroxysmal - continue metoprolol??and??apixaban ?? CKD III No MODESTA - avoid nephrotoxins - renally dose meds - monitor BMP ?? Anxiety (F41.9):?? Bipolar disorder (F31.9):? PTSD (post-traumatic stress disorder) (F43.10):? - Continue buspirone, alprazolam, sertraline, olanzapine ?? HTN (hypertension) (I10):? - continue metoprolol ?? Type 2 diabetes mellitus (E11.9):? - SSI - goal 140-180 ?? Code status: full DVT ppx:??apixaban Diet: regular Dispo: floors ?? Total Visit Time: I personally spent a total of 80 minutes, including both vrma-ni-ysyx and yqt-nvrz-gb-face time on the date of the encounter, addressing the above diagnoses. Activities performed in this time include chart review, obtaining / reviewing history, performing amedically necessary evaluation, documentation and counseling. ?? Tri Juares MD Deputy Chief Sheriff 7p-7a After 7 am please contact day time provider for questions/consult updates. ? Histories Past Medical History/Problem List Active Problems??(1) Obese class I ? Past Surgical History No surgery history documented. ? Social History No social history documented. ? Family History No family history recorded. ? Medications Home Medications Acetaminophen (acetaminophen 325 mg oral tablet)?650?Milligram?2?tablet?By Mouth?Every 4 hours?as needed?as needed for fever/pain Alprazolam (Xanax 0.25 mg oral tablet)?0.25?Milligram?1?tablet?By Mouth?Daily at bedtime Alprazolam (Xanax 0.5 mg oral tablet)?0.5?Milligram?1?tablet?By Mouth?Daily in AM Amlodipine (amLODIPine 5 mg oral tablet)?5?Milligram?1?tablet?By Mouth?Daily?HOLD FOR SBP<100 HR<60 apixaban (apixaban 5 mg oral tablet)?1?tab(s)?5?Milligram?By Mouth?2 times a day Bisacodyl (Dulcolax 10 mg rectal suppository)?1?suppository(ies)?10?Milligram?Rectall y?Daily?as needed?as needed for constipation?IF NO RESULTS FROM _x_ MIRALAX BY NEXT SHIFT BusPIRone (busPIRone 7.5 mg oral tablet)?1?tab(s)?7.5?Milligram?By Mouth?2 times a day Docusate-Senna (Senna Plus 50 mg-8.6 mg oral tablet)?2?tab(s)?By Mouth?Daily?as needed?Constipation Emollients, Topical (Cetaphil Moisturizing)?1?higinio?Topically?Daily?Apply lotion to bilateral lower and upper extremities every day shift. Emollients, Topical (Remedy Phytoplex Z-Guard paste)?1?higinio?Topically?3 times a day?Apply to buttock topically every day and evening shift for MASD Finasteride (finasteride 5 mg oral tablet)?1?tab(s)?5?Milligram?By Mouth?Daily?WEAR GLOVES WHEN HANDLING Furosemide (furosemide 40 mg oral tablet)?40?Milligram?1?tablet?By Mouth?Daily Gabapentin (gabapentin 300 mg oral capsule)?300?Milligram?1?capsule?By Mouth?Daily Gabapentin (gabapentin 800 mg oral tablet)?1?tab(s)?800?Milligram?By Mouth?Daily at bedtime Lidocaine Topical (lidocaine 5% topical cream)?1?higinio?Topically?4 times a day Magnesium Oxide (Mag-Ox 400 400 mg oral [...] 3 days nalOXONE (nalOXONE 0.4 mg/mL injectable solution)?0.4?Milligram?Intramuscular?Once?as needed?as needed Ocular Lubricant (Artificial Tears preserved solution)?1?Drops?Eyes, Both?Daily?as needed?for dry eyes Olanzapine (olanzapine 2.5 mg oral tablet)?2.5?Milligram?1?tablet?By Mouth?Daily at bedtime Polyethylene Glycol 3350 (MiraLax Powder)?1?pack/packet?17?gram?By Mouth?Daily?as needed?Constipation Sertraline (Zoloft 50 mg oral tablet)?1?tab(s)?50?Milligram?By Mouth?Daily Simethicone (simethicone 80 mg oral tablet, chewable)?80?Milligram?1?tablet?Chew?Every 12 hours?as needed?Gas Sodium Biphosphate-Sodium Phosphate (Fleet Enema 19 gm-7 gm rectal enema)?118?Milliliter?Rectally?Once?as needed?as needed for constipation?IF NO RESULT FROM DULCOLAX WITHIN 2 HOURS Tamsulosin (tamsulosin 0.4 mg oral capsule)?0.8?Milligram?2?capsule?By Mouth?Daily Trazodone (traZODone 50 mg oral tablet)?50?Milligram?1?tablet?By Mouth?Daily at bedtime ? Inpatient Medications Medications (22) Active SCHEDULED: (13) Alprazolam 0.25 mg Tablet (Xanax 0.25 mg oral tablet) ??0.25 mg, By Mouth, Daily at bedtime Alprazolam 0.5 mg Tablet (Xanax 0.5 mg oral tablet) ??0.5 mg, By Mouth, Daily in AM Amlodipine 5 mg Tablet (amLODIPine 5 mg oral tablet) ??5 mg, By Mouth, Daily Apixaban 5 mg Tablet (apixaban 5 mg oral tablet) ??5 mg, By Mouth, 2 times a day BusPIRone 10 mg Tablet (busPIRone 10 mg oral tablet) ??7.5 mg, By Mouth, 2 times a day Furosemide Inj (Lasix ??Inj) ??40 mg 4 mL, IV Push Slowly, 2 times a day Gabapentin 300 mg Capsule (gabapentin 300 mg oral capsule) ??300 mg, By Mouth, Daily Gabapentin 400 mg Capsule (gabapentin 400 mg oral capsule) ??800 mg, By Mouth, Daily at bedtime Metoprolol 100 mg XL Tablet (metoprolol 100 mg oral tablet, extended release) ??100 mg, By Mouth, Daily NaCl 0.9% Flush 3ml (NaCL 0.9% Flush) ??3 mL, IV Push, Every 8 hours Olanzapine 2.5 mg Tablet (olanzapine 2.5 mg oral tablet) ??2.5 mg, By Mouth, Daily at bedtime Sertraline 50 mg Tablet (Zoloft 50 mg oral tablet) ??50 mg, By Mouth, Daily Tamsulosin 0.4 mg Capsule (tamsulosin 0.4 mg oral capsule) ??0.8 mg, By Mouth, Daily CONTINUOUS: (0) PRN: (9) Acetaminophen 325 mg Tablet (Acetaminophen Tablet) ??650 mg, By Mouth, Every 4 hours Albuterol/Ipratropium Inhalation Corine 3mL (Duoneb Inhalation Solution) ??1 vials, BAND Nebulizer, Every 4 hours Dextromethorphan-Guaifenesin 20 mg-200 mg/10 mL Liqu UD (Robitussin DM Liquid) ??10 mL, By Mouth, Every 4 hours Docusate Sodium 100 mg Capsule (Docusate Sodium Capsule) ??100 mg 1 capsule, By Mouth, 2 times a day Melatonin 3 mg Tablet (Melatonin Tablet) ??3 mg, By Mouth, Daily at bedtime NaCl 0.9% Flush 3ml (NaCL 0.9% Flush) ??3 mL, IV Push, Every 8 hours Polyethylene Glycol 17 Gm Powder (MiraLax Powder) ??17 Gm 1 pack/packet, By Mouth, Daily Senna Tablet ??8.6 mg 1 tablet, By Mouth, 2 times a day Simethicone 80 mg Chewable Tablet (Simethicone Tablet) ??80 mg, Chew, 3 times a day ? Results Recent Labs BLOOD COUNT & DIFF WBC 8.8 k/mm3 ()?? 01/24/2023 14:35 RBC 5.22 m/mm3 ()?? 01/24/2023 14:35 Hgb 16.1 Gm/dL ()?? 01/24/2023 14:35 Hct 50.5 % (High)?? 01/24/2023 14:35 MCV 96.7 femtoliters (High)?? 01/24/2023 14:35 MCH 30.8 pg ()?? 01/24/2023 14:35 MCHC 31.9 g/dL (Low)?? 01/24/2023 14:35 Platelet Count 123 k/mm3 (Low)?? 01/24/2023 14:35 RDW-SD 48.5 femtoliters (High)?? 01/24/2023 14:35 MPV 11.4 femtoliters ()?? 01/24/2023 14:35 Nucleated RBC (Automated) 0.0 #/100 WBC'S ()?? 01/24/2023 14:35 Abs. NRBC 0.0 k/mm3 ()?? 01/24/2023 14:35 Abs. Neut 6.7 k/mm3 ()?? 01/24/2023 14:35 Abs. Lymph 0.8 k/mm3 ()?? 01/24/2023 14:35 Abs. [place] 1.1 k/mm3 ()?? 01/24/2023 14:35 Abs. Eo 0.1 k/mm3 ()?? 01/24/2023 14:35 Abs. Baso 0.0 k/mm3 ()?? 01/24/2023 14:35 Neut % 76.0 % ()?? 01/24/2023 14:35 Lymph % 9.5 % (Low)?? 01/24/2023 14:35 [place] % 12.7 % (High)?? 01/24/2023 14:35 Eos % 1.0 % ()?? 01/24/2023 14:35 Baso % 0.5 % ()?? 01/24/2023 14:35 Imm Gran 0.3 % ()?? 01/24/2023 14:35 Abs. Imm Gran 0.0 k/mm3 ()?? 01/24/2023 14:35 ?? CARDIAC Nt-Probnp 998 pg/mL (High)?? 01/24/2023 14:35 High Sensitivity Troponin (HSTnT) 20 ng/L ()?? 01/24/2023 14:35 ?? CHEM GENERAL Sodium 141 mmol/L ()?? 01/24/2023 14:35 Potassium 4.8 mmol/L ()?? 01/24/2023 14:35 Chloride 100 mmol/L ()?? 01/24/2023 14:35 Bicarbonate Level 34 mmol/L (High)?? 01/24/2023 14:35 Anion Gap 7 ()?? 01/24/2023 14:35 Glucose Level 141 mg/dL (High)?? 01/24/2023 14:35 BUN 18 mg/dL ()?? 01/24/2023 14:35 Creatinine-Blood 1.1 mg/dL ()?? 01/24/2023 14:35 Estimated GFR Creatinine 66 ML/MIN/1.73 M2 ()?? 01/24/2023 14:35 Calcium 9.3 mg/dL ()?? 01/24/2023 14:35 ?? COAG D-Dimer 0.23 mg/L FEU ()?? 01/24/2023 14:35 ?? URINE OTHER Est Creatinine Clearance 62.96 mL/min ()?? 01/24/2023 17:05 ?? VIROLOGY Influenza A PCR NEGATIVE ()?? 01/24/2023 14:00 Influenza B PCR NEGATIVE ()?? 01/24/2023 14:00 RSV PCR POSITIVE (Abnormal)?? 01/24/2023 14:00 COVID-19 PCR Specimen Source NASAL ()?? 01/24/2023 14:00 COVID-19 PCR Result NEGATIVE ()?? 01/24/2023 14:00 ? Blood Glucose Trend Glucose Level:??141 mg/dL??High (01/24/23 14:35:00) ? CBC, CBC w/Diff?? CBC?? Differential?? WBC: 8.8 k/mm3 (14:35) Abs. Neut: 6.7 k/mm3 (14:35) RBC: 5.22 m/mm3 (14:35) Abs. Lymph: 0.8 k/mm3 (14:35) Hct:??50.5 %??High (14:35) Abs. [place]: 1.1 k/mm3 (14:35) RDW-SD:??48.5 femtoliters??High (14:35) Abs. Eo: 0.1 k/mm3 (14:35) Nucleated RBC (Automated): 0 #/100 WBC'S (14:35) Abs. Baso: 0 k/mm3 (14:35) Abs. NRBC: 0 k/mm3 (14:35) Neut %: 76 % (14:35) ?? Lymph %:??9.5 %??Low (14:35) ?? [place] %:??12.7 %??High (14:35) ?? Eos %: 1 % (14:35) ?? Baso %: 0.5 % (14:35) ?? Imm Gran: 0.3 % (14:35) ?? Abs. Imm Gran: 0 k/mm3 (14:35) ? LFT?? No qualifying data available. ?? Urinalysis Est Creatinine Clearance: 62.96 mL/min (17:05) ?? Microbiology ?? COVID-19, RSV, and Flu A/B, Rapid PCR?? Completed?? Source: Nasal Body Site: Nose Collected Dt/Tm: 01/24/2023 14:20 Last Updated Dt/Tm: 01/24/2023 15:54 ? Blood Gases?? No qualifying data available. ?? * Orestes VALLE, Damaso: PERFORM Event Display: Admission Note Authored Date: I saw and evaluated him this morning in the ED On 2 L nasal cannula??saturating 95%, we will??titrate down oxygen and??remove if tolerated Came with shortness of breath, found to have a fluid overload, getting diuresis with 40 mg??twice daily , Likely?? exacerbation??from RSV trigger, symptomatic management for RSV He was tachycardic, I increased his metoprolol from 100 to 150 mg daily. Patient was admitted earlier this morning??please refer to today's note??for history physical assessment and plan. EKG study * Event Display: EKG Authored Date: * Event Display: ECG 12-Lead Authored Date: Please click on pdf link to open report * Event Display: ECG 12-Lead Authored Date: Ventricular Rate: 104 BPM QRS Duration: 114 ms Q-T Interval: 336 ms QTC Calculation(Bazett): 441 ms R Groom: -41 degrees T Groom: 59 degrees Atrial fibrillation with rapid ventricular response Left axis deviation Inferior infarct , age undetermined Anterolateral infarct , age undetermined Abnormal ECG When compared with ECG of 20-FEB-2016 13:40, Significant changes have occurred Confirmed by CRISTINA ROBERSON MD ([id number]) on 01/29/2023 9:26:35 AM [place]: CRISTINA ROBERSON MD Cardiology * Event Display: Cardiac Rhythm Strips Authored Date: * Event Display: Cardiac Rhythm Strips Authored Date: * Event Display: Cardiac Rhythm Strips Authored Date: Hospital Progress note * Melida Sabillon RN: PERFORM, SIGN, VERIFY Event Display: Progress Note Hospital Authored Date: Patient: ADIEL ARCINIEGA Age: 77 years Sex: Male : 1945 Associated Diagnoses: None Author: Melida Sabillon RN Discharge Information Functional Assessment Personal hygiene: total. Feeding ability: assist. Standing ability: unable to stand. Mobility assistance: immobile. Chair transfer: lift to chair. Elimination: last bowel movement 02/04/2023 11:15:00. Nutritional Assessment Appetite: fair. Date and time of last meal 02/05/2023 11:15:00. Pain Assessment Level on transfer: 1. Interventions: medication. Acceptable pain relief: yes. Tylenol : last pain medication given at 02/05/2023 08:30:00. Smoking Cessation Patient has not smoked in last 12 months. Psycho-Social Assessment Affect/behavior: cooperative. Mental status: confused. Orientation: person, place, time. Case Management Discharge Plan : Case Management Discharge Plan Data 02/05/2023 10:42 EST Discharge Level of Care at Discharge [facility] facility Discharge Nursing Homes/Rehab Facilities [facility] Panfilo Bashir Discharge Transportation Arranged [facility] [phone] Discharge Arranged Transport Date/Time 02/05/2023 12:00 Mode of Transportation Arranged Ambulance Name of Agency #1 [facility] on [address] Additional Info for D/C Instructions You are being discharged back to [facility] today at 12PM. An ambulance will pick you up and bring you there. Name of Person Notified of Transfer [facility] Discharge : Rehab Discharge Index 02/03/2023 13:32 EST Full chart review completed Not Done: Task Duplication (Not Done) 02/03/2023 12:59 EST Walker: distance < 10 * Octaviano VALLE, Kolby Cordova: PERFORM Event Display: Progress Note Hospital Authored Date: [id number] Patient: ??ADIEL ARCINIEGA ? Age:??77 Years?Sex:??Male?:??1945?? Subjective 01/30:??No major overnight events reported. ??Patient??was able to use BiPAP overnight. ??He remains confused,??however appears to improving. ??His ABG??this morning shows some improvements. ??He wasseen by Geriatrics in??follow-up, recommendations appreciated.?He was saturating well on nasal cannula and he was turned down. Attempted to call (Carla)??for update, no answer. ?? 01/31:??Overnight, patient??noted to have??some conjunctival??injection on the right and started onerythromycin ointment.?? His oxygen requirements are improving however he does have some??more pronounced wheezing,??he was ordered for CT. I was able to get in touch with , Carla,??updated at length. She is worried about holding alprazolam given history of PTSD,??discussed with Tamica, they recommend to continue to hold for now. ?? 02/01:??Patient under the care of another provider. ??Per chart review he was very confused and refused all meds, was seen by Psychiatry??who felt it was likely delirium, he calmed down and accepted his meds. ?? 02/02:??Patient is pleasant and cooperative today.?? His oxygenation appears to be improving. ?? 02/03:??Patient continues to improve. ??He is seen by quality control lab tech recommends cutting back on gabapentin, ordered. ??He seen by PT who??recommends??rehab.?? Discharge planning ongoing. ?? 02/04:??Patient mentation continues to improve.?? Discussed with Metal Filer, he can be possibly be discharged to rehab tomorrow??if he is cleared from isolation, he is discussed with Infection Control and he is cleared from isolation, CM informed via secure messaging. ? Review of Systems Constitutional:??denies F/C Cardiovascular:?no CP or palpitations Respiratory:??no SOB or significant cough Gastrointestinal:??no N/V/D :??no complaints Objective Measurements?? Height: 186 cm (02/04/23) Weight: 124.1 kg (02/04/23) Dry Weight: 130 kg (01/25/23) Body Mass Index:??38.73 kg/m2??Critical (01/25/23) ? Vital Signs?? Temperature: 98.1 DegF (02/04/23 14:42:00) Temperature Route: Temporal (02/04/23 14:42:00) Pulse Rate: 78 bpm (02/04/23 14:42:00) Respiratory Rate: 17 br/min (02/04/23 14:42:00) Systolic Blood Pressure: 94 mm Hg (02/04/23 14:42:00) Diastolic Blood Pressure: 62 mm Hg (02/04/23 14:42:00) Blood pressure sites: Arm, right (02/04/23 14:42:00) Mean Arterial Pressure: 73 mm Hg (02/04/23 14:42:00) Pulse Pressure: 32 mm Hg (02/04/23 14:42:00) Oxygen Saturation: 99 % (02/04/23 14:42:00) Liters per Minute: 2 L/min (02/04/23 14:42:00) Mode of Delivery (Oxygen): Nasal cannula (02/04/23 14:42:00) Early Warning Score: 4 (02/04/23 16:25:11) ? Pain Scores?? No qualifying data available. ? Intake/Output? 01/24 16:19 02/04 07:00 02/03 07:00 02/02 07:00 02/01 07:00 ?? 02/04 18:46 02/04 18:46 02/04 06:59 02/03 06:59 02/02 06:59 Intake ? 3974 ?480 ?240 ?0 ?240 Output ?90207 ? 1025 ?900 ?0 ?601 Net Total ?-8978 ? -545 ? -660 ?0 ? -361 ? Urine Count ?5 ?0 ?1 ?0 ?0 Diaper Count ?4 ?0 ?0 ?0 ?1 ? Physical Exam Constitutional: Alert, in no acute distress. Head EENT: PERRL.??NCAT. Neck: Supple. No obvious LAD. Respiratory: CTAB.??No use of accessory muscles. Cardiovascular: S1S2 present. No obvious JVD. Gastrointestinal: Abdomen soft, non-tender, non-distended. Bowel sounds present. Genitourinary: No CVA tenderness. Genital exam deferred. Extremities: No lower extremity pitting??edema. No cyanosis or clubbing. Neurologic: Alert, pleasantly confused,??but significantly improved, alert and oriented times 2+, knows he is at [facility], knows his name, knows the year but not month. No gross focal neurological deficits. _ Inpatient Medications Medications (30) Active SCHEDULED: (16) Acetaminophen 325 mg Tablet (Acetaminophen Tablet) ??975 mg, By Mouth, 3 times a day Albuterol/Ipratropium Inhalation Corine 3mL (Duoneb Inhalation Solution) ??1 vials, BAND Nebulizer, 4 times a day Amlodipine 5 mg Tablet (amLODIPine 5 mg oral tablet) ??5 mg, By Mouth, Daily Apixaban 5 mg Tablet (apixaban 5 mg oral tablet) ??5 mg, By Mouth, 2 times a day BusPIRone 10 mg Tablet (busPIRone 10 mg oral tablet) ??7.5 mg, By Mouth, 2 times a day Erythromycin 0.5% Ophthalmic Ointment (erythromycin 0.5% ophthalmic ointment) ??1 application, Eye,Right, 4 times a day Furosemide 40 mg Tablet (Lasix 40 mg oral tablet) ??40 mg, By Mouth, Daily Gabapentin 300 mg Capsule (gabapentin 300 mg oral capsule) ??600 mg, By Mouth, Daily at bedtime Influenza Quad Adult High Dose (> 65yr) Fluzone 0.7mL (Influenza, Quad High Dose Vaccine (Fluzone High Dose)) ??0.7 mL, Intramuscular, Once Insulin Lispro 100 units/mL Inj (3mL) (Insulin LISPRO Sliding Scale) ??2-10 units, Subcutaneous Injection, 3 times a day before meals Metoprolol 50 mg XL Tablet (metoprolol 50 mg oral tablet, extended release) ??150 mg, By Mouth, Daily NaCl 0.9% Flush 3ml (NaCL 0.9% Flush) ??3 mL, IV Push, Every 8 hours Olanzapine 2.5 mg Tablet (olanzapine 2.5 mg oral tablet) ??2.5 mg, By Mouth, Daily at bedtime Polyethylene Glycol 17 Gm Powder (MiraLax Powder) ??17 Gm 1 pack/packet, By Mouth, Daily Sertraline 25 mg Tablet (Zoloft 25 mg oral tablet) ??75 mg, By Mouth, Daily Tamsulosin 0.4 mg Capsule (tamsulosin 0.4 mg oral capsule) ??0.8 mg, By Mouth, Daily CONTINUOUS: (0) PRN: (14) Albuterol/Ipratropium Inhalation Corine 3mL (Duoneb Inhalation Solution) ??1 vials, BAND Nebulizer, Every 4 hours Dextromethorphan-Guaifenesin 20 mg-200 mg/10 mL Liqu UD (Robitussin DM Liquid) ??10 mL, By Mouth, Every 4 hours Dextrose Inj Syringe (Dextrose 50% Inj Syringe (25Gm)) ??12.5 Gm, IV Push Slowly, Every 20 minutes Dextrose Inj Syringe (Dextrose 50% Inj Syringe (25Gm)) ??25 Gm, IV Push Slowly, Every 15 minutes Docusate Sodium 100 mg Capsule (Docusate Sodium Capsule) ??100 mg 1 capsule, By Mouth, 2 times a day Glucagon 1 mg Inj (Glucagon Inj) ??1 mg, Intramuscular, Once Glucose 40% Gel (15 Gm) (Glucose Gel) ??15 Gm, By Mouth, Every 20 minutes Glucose 40% Gel (15 Gm) (Glucose Gel) ??30 Gm, By Mouth, Every 20 minutes Lorazepam 0.5 mg Tablet (Ativan 0.5 mg oral tablet) ??0.25 mg, By Mouth, Once Melatonin 3 mg Tablet (Melatonin Tablet) ??3 mg, By Mouth, Daily at bedtime NaCl 0.9% Flush 3ml (NaCL 0.9% Flush) ??3 mL, IV Push, Every 8 hours OxyCODONE 5 mg IR Tablet (oxyCODONE 5 mg oral tablet) ??2.5 mg, By Mouth, Every 4 hours Senna Tablet ??17.2 mg 2 tablet, By Mouth, Daily Simethicone 80 mg Chewable Tablet (Simethicone Tablet) ??80 mg, Chew, 3 times a day ? Results Recent Labs BLOOD COUNT & DIFF WBC 9.6 k/mm3 ()?? 02/03/2023 06:24 RBC 4.87 m/mm3 ()?? 02/03/2023 06:24 Hgb 15.1 Gm/dL ()?? 02/03/2023 06:24 Hct 46.4 % ()?? 02/03/2023 06:24 MCV 95.3 femtoliters (High)?? 02/03/2023 06:24 MCH 31.0 pg ()?? 02/03/2023 06:24 MCHC 32.5 g/dL (Low)?? 02/03/2023 06:24 Platelet Count 147 k/mm3 (Low)?? 02/03/2023 06:24 RDW-SD 46.2 femtoliters ()?? 02/03/2023 06:24 MPV 11.9 femtoliters ()?? 02/03/2023 06:24 Nucleated RBC (Automated) 0.0 #/100 WBC'S ()?? 02/03/2023 06:24 Abs. NRBC 0.0 k/mm3 ()?? 02/03/2023 06:24 ?? CHEM GENERAL Sodium 141 mmol/L ()?? 02/03/2023 06:24 Potassium 4.2 mmol/L ()?? 02/03/2023 06:24 Chloride 100 mmol/L ()?? 02/03/2023 06:24 Bicarbonate Level 34 mmol/L (High)?? 02/03/2023 06:24 Anion Gap 7 ()?? 02/03/2023 06:24 Glucose Level 95 mg/dL ()?? 02/03/2023 06:24 Glucose, POC 121 mg/dL (High)?? 02/04/2023 16:13 BUN 28 mg/dL (High)?? 02/03/2023 06:24 Creatinine-Blood 1.0 mg/dL ()?? 02/03/2023 06:24 Estimated GFR Creatinine 82 ML/MIN/1.73 M2 ()?? 02/03/2023 06:24 Calcium 9.4 mg/dL ()?? 02/03/2023 06:24 ?? URINE OTHER Est Creatinine Clearance 69.26 mL/min ()?? 02/03/2023 07:15 ? Assessment/Plan Diagnoses Acute kidney injury ??(N17.9) Acute metabolic encephalopathy ??(G93.41) Acute on chronic diastolic heart failure ??(I50.33) Acute on chronic respiratory failure with hypercapnia ??(J96.22) Acute respiratory failure with hypoxia ??(J96.01) Anxiety ??(F41.9) Atrial fibrillation ??(I48.91) Back pain ??(M54.9) Bipolar disorder ??(F31.9) Chronic kidney disease ??(N18.9) HTN (hypertension) ??(I10) History of hypertrophic cardiomyopathy ??(Z86.79) Obstructive sleep apnea ??(G47.33) PTSD (post-traumatic stress disorder) ??(F43.10) Respiratory syncytial virus infection ??(B33.8) Right conjunctivitis ??(H10.9) Type 2 diabetes mellitus ??(E11.9) ?? Assessment:??77-year-old male with PMHx diastolic heart failure, T2DM, A-fib on Eliquis who presented with shortness of breath found to be in decompensated heart failure likely 2/2 RSV infection. Admitted to inpatient 01/24. Hospital course C/B acute hypercarbic respiratory failure requiring NIV, suspected that this is acute on chronic with noncompliance with home CPAP as well as sedating medications. Mental status improved with BiPAP and IV diuresis. But developed MODESTA on 01/27, so IV diuresis were held to allow for improvement, then subsequently resumed. Geriatrics on board for delirium, his meds have been adjusted with ongoing improvements. ? Obstructive sleep apnea (G47.33):??Difficulty with NIV adherence at home but doing better here. Acute on chronic respiratory failure with hypercapnia (J96.22):??. Acute respiratory failure with hypoxia (J96.01):??. Respiratory syncytial virus infection (B33.8):??. Acute metabolic encephalopathy (G93.41):??Likely in the setting of polypharmacy, hypercapnea. Improving. ABG 01/30 improved. He is mainly on room air in the daytime. Case was discussed with infectioncontrol and he was cleared on 02/04. ?? -Continue inpatient care -[place] on board -Limit sedating meds -Optimize volume status, oxygenation, encourage BiPAP use -Avoid hyperoxia -NIV as required -Family would like to restart on Xanax, however Tamica continues to recommend against this -Cut back gabapentin 02/03 per Tamica -IS if possible ? -DC planning ? History of hypertrophic cardiomyopathy (Z86.79):??. HTN (hypertension) (I10):??. Atrial fibrillation (I48.91):??Intermittent RVR Acute on chronic diastolic heart failure (I50.33):??Developed MODESTA, limiting diuresis (resumed 01/29) -Continue oral lasix for now, monitor volume status - Continue home metoprolol 100XL and apixaban - monitor I/Os ??- daily weights ??- wean O2 as tolerated ?? Chronic kidney disease (N18.9):??. Acute kidney injury (N17.9):??Cr 1.1 on admission, tobi to 1.5 while on iv diuresis, felt likely prerenal so diuresis was held on 01/27, with improvements. Resumed lasix 01/29 alongside ongoing improvements. ?? -CTM -Monitor renal function -Avoid nephrotoxin ?? Anxiety (F41.9):??. Bipolar disorder (F31.9):??. PTSD (post-traumatic stress disorder) (F43.10):??Per /chart, patient gets severe flashbacks if he doesn't take his meds. At baseline,??he is on alprazolam 0.5 mg in am and 0.25 mg at night, as well asbuspirone, sertraline, olanzapine, gabapentin ?? -Previously discontinued alprazolam (concern sedation and CO2 retention)>>no signs forwithdrawal. -Continue buspirone, sertraline, olanzapine, gabapentin -Geriatric on board for polypharmacy/delirium ? Type 2 diabetes mellitus (E11.9):??Does not appear to have diabetes meds on med rec; Hgb A1c is 7 ?? -POCs TID + lispro sliding scale, can DC if HgbA1c WNL -Hypoglycemia measures ordered ?? Right conjunctivitis (H10.9):??Noted overnight into 01/31, started on e-mycin; improving -Continue ointment, CTM ?? Back pain (M54.9):??Significantly improved -Tylenol [id number] and oxycodone as needed??(low-dose) ?? VTE Prophylaxis:??Eliquis ?VTE Prophylaxis Assessment:??VTE Prophylaxis Ordered ?? Code Status:??Full ?Order Code Status:??Code Status Ordered ?? Ongoing Medical Necessity:??Respiratory failure, confusion, both improved Discharge Planning:??Likely Rehab, possibly 02/05 ? Please note, dictation software (menuvox)??may have been used in the preparation of this note, and may have generated unintentional errors in speech recognition. If there are any questions going forward, please reach out for clarification. ? * Vicenta Guzmán RN: PERFORM, SIGN, VERIFY Event Display: Progress Note Hospital Authored Date: Patient: ADIEL ARCINIEGA Age: 77 years Sex: Male : 1945 Associated Diagnoses: None Author: Vicenta Guzmán RN Findings Nursing Data Vital Signs : VITAL SIGNS SECTION 02/04/2023 8:11 EST Temperature 98.2 DegF Temperature Route Temporal Pulse Rate 81 bpm Respiratory Rate 16 br/min Systolic Blood Pressure 135 mm Hg Diastolic Blood Pressure 75 mm Hg Blood pressure sites Arm, right Mean Arterial Pressure 95 mm Hg Pulse Pressure 60 mm Hg Oxygen Saturation 98 % Liters per Minute 2 L/min Mode of Delivery (Oxygen) Nasal cannula . Narrative/Incidental Assumed care of pt at 0730. Pt is ao4 on 2L O2 and is on contact/droplet iso for RSV. Pt resports no resp distress. Pt is bedfast incont of bowel and baldder LBM 02-02-23. Pt is achs and blind i lefteye. Pt is a 1:1 feed on a cardiac diet tolerating well. Call jung within reach and rounding for ptsafety.. Discharge Information Pulmonary Rehab Discharge : Pulmonary Rehab Discharge Status 01/31/2023 3:11 EST CPAP/BiPAP Mask Type Full CPAP/BiPAP Mask Size Medium 01/31/2023 1:01 EST CPAP/BiPAP Mask Type Full CPAP/BiPAP Mask Size Medium 01/30/2023 0:29 EST CPAP/BiPAP Mask Type Full CPAP/BiPAP Mask Size Medium Rehabilitation Discharge : Rehab Discharge Index 02/03/2023 13:32 EST Full chart review completed Not Done: Task Duplication (Not Done) 02/03/2023 12:59 EST Walker: distance < 10 01/30/2023 11:12 EST Full chart review completed Yes Hospital course Hospital course Note * Melida Sabillon RN: PERFORM Event Display: Discharge/Transfer Note Hospital Authored Date: Nursing Discharge Note Entered On: 02/05/2023 13:41 EST Performed On: 02/05/2023 13:38 EST by Melida Sabillon RN Nursing Discharge Note 2 Discharge Time : 02/05/2023 13:15 EST Discharge Level of Care at Discharge : [facility] facility Discharge Nursing Homes/Rehab Facilities : [facility] Patient Left Unit Via : Ambulance Patient Accompanied Off Unit with : Ambulance/Chair Van Personnel Handover Given to Transport Personnel : Yes DC Instructions Provided & Signed by Pt : No Patient Understands D/C Instructions : No Patient Instructions Discharge Signed : No Instructions for Discharge Comments : all paper work sent to snf at time of discharge pt and aggree with plan Did Pt have Specialty Bed or Wound Vac : Yes Melida Sabillon RN - 02/05/2023 13:38 EST * Vikram VALLE, Mikayla: PERFORM, MODIFY Event Display: Discharge/Transfer Note Hospital Authored Date: [id number] Patient: ??ADIEL ARCINIEGA ? Age:??77 Years?Sex:??Male?:??1945?? Patient Information Discharge Location: 7 Primary Care Physician: Kade VALLE, Sandrine Sharma Admit Date/Time: 01/24/23 16:19 Discharge Disposition Discharge Disposition: Halfway Facility/Rehab Discharge Diagnosis Acute kidney injury (N17.9) Acute metabolic encephalopathy (G93.41) Acute on chronic diastolic heart failure (I50.33) Acute on chronic respiratory failure with hypercapnia (J96.22) Acute respiratory failure with hypoxia (J96.01) Anxiety (F41.9) Atrial fibrillation (I48.91) Back pain (M54.9) Bipolar disorder (F31.9) Chronic kidney disease (N18.9) HTN (hypertension) (I10) History of hypertrophic cardiomyopathy (Z86.79) Obstructive sleep apnea (G47.33) PTSD (post-traumatic stress disorder) (F43.10) Respiratory syncytial virus infection (B33.8) Right conjunctivitis (H10.9) Type 2 diabetes mellitus (E11.9) ?? _ Discharge Medications Acetaminophen (acetaminophen 325 mg oral tablet)?650?Milligram?2?tablet?By Mouth?Every 4 hours?as needed?as needed for fever/pain Albuterol/Ipratropium (albuterol-ipratropium 3 mg-0.5 mg/3 ml inhalation solution)?BAND Nebulizer?4 times a day Amlodipine (amLODIPine 5 mg oral tablet)?5?Milligram?1?tablet?By Mouth?Daily?HOLD FOR SBP<100 HR<60 apixaban (apixaban 5 mg oral tablet)?1?tab(s)?5?Milligram?By Mouth?2 times a day Bisacodyl (Dulcolax 10 mg rectal suppository)?1?suppository(ies)?10?Milligram?Rectall y?Daily?as needed?as needed for constipation?IF NO RESULTS FROM _x_ MIRALAX BY NEXT SHIFT BusPIRone (busPIRone 7.5 mg oral tablet)?1?tab(s)?7.5?Milligram?By Mouth?2 times a day Docusate-Senna (Senna Plus 50 mg-8.6 mg oral tablet)?2?tab(s)?By Mouth?Daily?as needed?Constipation Emollients, Topical (Cetaphil Moisturizing)?1?higinio?Topically?Daily?Apply lotion to bilateral lower and upper extremities every day shift. Emollients, Topical (Remedy Phytoplex Z-Guard paste)?1?higinio?Topically?3 times a day?Apply to buttock topically every day and evening shift for MASD Erythromycin Ophthalmic (erythromycin 0.5% ophthalmic ointment)?1?applicator?Eye, Right?4 times a day Finasteride (finasteride 5 mg oral tablet)?1?tab(s)?5?Milligram?By Mouth?Daily?WEAR GLOVES WHEN HANDLING Furosemide (furosemide 40 mg oral tablet)?40?Milligram?1?tablet?By Mouth?Daily Gabapentin (gabapentin 300 mg oral capsule)?600?Milligram?By Mouth?Daily at bedtime Lidocaine Topical (lidocaine 5% topical cream)?1?higinio?Topically?4 times a day Magnesium Oxide (Mag-Ox 400 400 mg oral tablet)?1?tab(s)?400?Milligram?By Mouth?2times a day Melatonin (melatonin 3 mg oral tablet)?1?tab(s)?3?Milligram?By Mouth?Daily at bedtime?for insomnia Metformin (metFORMIN 500 mg oral tablet)?1?tab(s)?500?Milligram?By Mouth?Daily?with meals Methyl Salicylate-Menthol Topical (Muscle Rub 10%-15% topical cream)?1?higinio?Topically?Every 8 hours?as needed?Pain , Moderate Metoprolol (metoprolol 50 mg oral tablet, extended release)?150?Milligram?By Mouth?Daily Milk of Magnesia (MOM Liquid)?30?Milliliter?By Mouth?Daily at bedtime?as needed?as needed for constipation?if NO Bm in 3 days Ocular Lubricant (Artificial Tears preserved solution)?1?Drops?Eyes, Both?Daily?as needed?for dry eyes Olanzapine (olanzapine 2.5 mg oral tablet)?2.5?Milligram?1?tablet?By Mouth?Daily at bedtime Polyethylene Glycol 3350 (MiraLax Powder)?1?pack/packet?17?gram?By Mouth?Daily?as needed?Constipation Sertraline (Zoloft 25 mg oral tablet)?75?Milligram?By Mouth?Daily Simethicone (simethicone 80 mg oral tablet, chewable)?80?Milligram?1?tablet?Chew?Every 12 hours?as needed?Gas Sodium Biphosphate-Sodium Phosphate (Fleet Enema 19 gm-7 gm rectal enema)?118?Milliliter?Rectally?Once?as needed?as needed for constipation?IF NO RESULT FROM DULCOLAX WITHIN 2 HOURS Tamsulosin (tamsulosin 0.4 mg oral capsule)?0.8?Milligram?2?capsule?By Mouth?Daily ? Medications Started metformin, erythromycin Medications Discontinued xanax Doses Changed gabapentin, metoprolol xl, zoloft Allergies Allergies ?(Active and Proposed Allergies Only) NKA? (Severity: Unknown severity, Onset: Unknown) ? PCP Follow-Up/Heads-Up ensure bipap compliance Hospital Course ?? 77-year-old male with PMHx diastolic heart failure, T2DM, A-fib on Eliquis who presented with shortness of breath found to be in decompensated heart failure likely 2/2 RSV infection. Admitted to inpatient 01/24. Hospital course C/B acute hypercarbic respiratory failure requiring NIV, suspected that this is acute on chronic with noncompliance with home CPAP as well as sedating medications. Mental status improved with BiPAP and IV diuresis. But developed MODESTA on 01/27, so IV diuresis were held to allow for improvement, then subsequently resumed. Geriatrics on board for delirium, his meds have been adjusted with ongoing improvements. ? Obstructive sleep apnea (G47.33):??Difficulty with NIV adherence at snf but doing better here.He has been counselled on compliance. Acute on chronic respiratory failure with hypercapnia (J96.22):??. Acute respiratory failure with hypoxia (J96.01):??. Respiratory syncytial virus infection (B33.8):??off of isolation since 02/04. Acute metabolic encephalopathy (G93.41):??Likely in the setting of polypharmacy, hypercapnia. Improving. ABG 01/30 improved. He is mainly on room air in the daytime.?appreciate input from geriatrics -Limit sedating meds, xanax has been discontinued which he has tolerated well without any withdrawal, gabapentin has been adjusted as well. His morning dose of gabapentin is discontinued and nighttime??gabapentin decreased from 800 mg to 600 mg. -Optimize volume status, continue on lasix 40 mg daily, oxygenation, encourage BiPAP use at night with settings of IPAP 10, EPAP 5, FiO2: 28% - titrate oxygen to keep spo2 92% or more ? History of hypertrophic cardiomyopathy (Z86.79):??. HTN (hypertension) (I10):??. Atrial fibrillation (I48.91):??Intermittent RVR Acute on chronic diastolic heart failure (I50.33):??Developed MODESTA, limiting diuresis (resumed 01/29) -Continue oral lasix for now, monitor volume status - metoprolol increased to 150 mg and c/w apixaban ? Chronic kidney disease (N18.9):??. Acute kidney injury (N17.9):??Cr 1.1 on admission, tobi to 1.5 while on iv diuresis, felt likely prerenal so diuresis was held on 01/27, with improvements. Resumed lasix 01/29 alongside ongoing improvements. last bmp on 02/03. Renal function at baseline. ?? -continue home??dose of oral lasix 40 mg daily ?? Anxiety (F41.9):??. Bipolar disorder (F31.9):??. PTSD (post-traumatic stress disorder) (F43.10):??Per /chart, patient gets severe flashbacks if he doesn't take his meds. At baseline,??he is on alprazolam 0.5 mg in am and 0.25 mg at night, as well asbuspirone, sertraline, olanzapine, gabapentin ?? -Previously discontinued alprazolam (concern sedation and CO2 retention)>>no signs of withdrawal. -Continue buspirone, sertraline, olanzapine, gabapentin -Geriatric reccs appreciated for polypharmacy/delirium ? Type 2 diabetes mellitus (E11.9):??Does not appear to have diabetes meds on med rec; Hgb A1c is 7 would start on metformin 500 mg daily on discharge ?? Right conjunctivitis (H10.9):??Noted overnight into 01/31, started on e-mycin; improving -Continue ointment ?? Back pain (M54.9):??Significantly improved -Tylenol [id number] and oxycodone as needed??(low-dose) Objective Measurements?? Height: 186 cm (02/05/23) Weight: 133.2 kg (02/05/23) Dry Weight: 130 kg (01/25/23) Body Mass Index:??38.73 kg/m2??Critical (01/25/23) ? Vital Signs?? Temperature: 97.2 DegF (02/05/23 08:07:00) Temperature Route: Temporal (02/05/23 08:07:00) Pulse Rate: 78 bpm (02/05/23 08:48:00) Respiratory Rate: 18 br/min (02/05/23 08:07:00) Systolic Blood Pressure: 106 mm Hg (02/05/23 08:48:00) Systolic Blood Pressure: 106 mm Hg (02/05/23 08:48:00) Diastolic Blood Pressure: 63 mm Hg (02/05/23 08:48:00) Diastolic Blood Pressure: 63 mm Hg (02/05/23 08:48:00) Blood pressure sites: Arm, right (02/05/23 08:07:00) Mean Arterial Pressure: 77 mm Hg (02/05/23 08:07:00) Pulse Pressure: 43 mm Hg (02/05/23 08:07:00) Oxygen Saturation: 95 % (02/05/23 08:07:00) Liters per Minute: 2 L/min (02/05/23 08:07:00) Mode of Delivery (Oxygen): Nasal cannula (02/05/23 08:07:00) Early Warning Score: 4 (02/05/23 08:50:08) ? Pain Scores?? No qualifying data available. ? Intake/Output? 01/24 16:19 02/05 07:00 02/04 07:00 02/03 07:00 02/02 07:00 ?? 02/05 10:34 02/05 10:34 02/05 06:59 02/04 06:59 02/03 06:59 Intake ? 4454 ?0 ?960 ?240 ?0 Output ?92380 ?200 ? 2025 ?900 ?0 Net Total ?-9698 ? -200 ?-1065 ? -660 ?0 ? Urine Count ?5 ?0 ?0 ?1 ?0 Diaper Count ?4 ?0 ?0 ?0 ?1 ? Mobility & Ambulation Level Mobility & Ambulation Level Activity Assistance: Two person assistance (01/29/23) Activity Status ADL: Complete bedrest, Repositioned in bed every two hours (01/29/23) Ambulatory devices needed: None (01/29/23) Range of Motion LLE: Active (01/27/23) Range of Motion LUE: Active (01/27/23) Range of Motion RLE: Active (01/27/23) Range of Motion RUE: Active (01/27/23) Repositioning: Total care (01/27/23) ?? . Physical Exam Constitutional: Alert, in no acute distress. Head EENT: PERRL.??NCAT. Neck: Supple. No obvious LAD. Respiratory: CTAB.??No use of accessory muscles. Cardiovascular: S1S2 present. No obvious JVD. Gastrointestinal: Abdomen soft, non-tender, non-distended. Bowel sounds present. Genitourinary: No CVA tenderness. Genital exam deferred. Extremities: trace edema. No cyanosis or clubbing. Neurologic: Alert, alert and oriented times 2+, knows he is at [facility], knows his name, knows the year but not month. No gross focal neurological deficits. Consultants geriatrics Pending Results Add On Lab Order ordered on 01/26/2023 Add On Lab Order ordered on 01/29/2023 Blood Gas Arterial ordered on 02/01/2023 CBC ordered on 02/01/2023 UA W/Reflex Culture & Renal ordered on 02/01/2023 Patient Education Titles Continuous Positive Air Pressure (CPAP)?? What Are Snoring and Obstructive Sleep Apnea??? What Is a BiPAP??? Follow-Up Appointments Added Follow Up ?Time Frame ?Comments Sandrine Braun MD?1 week?Call to make appointment with primary care doctor. Patient Instructions it??is advised that you comply??with bipap at night/sleep. Home Health Face to Face ^[facility] Results Discharge Labs BLOOD COUNT & DIFF WBC 9.6 k/mm3 ()?? 02/03/2023 06:24 RBC 4.87 m/mm3 ()?? 02/03/2023 06:24 Hgb 15.1 Gm/dL ()?? 02/03/2023 06:24 Hct 46.4 % ()?? 02/03/2023 06:24 MCV 95.3 femtoliters (High)?? 02/03/2023 06:24 MCH 31.0 pg ()?? 02/03/2023 06:24 MCHC 32.5 g/dL (Low)?? 02/03/2023 06:24 Platelet Count 147 k/mm3 (Low)?? 02/03/2023 06:24 RDW-SD 46.2 femtoliters ()?? 02/03/2023 06:24 MPV 11.9 femtoliters ()?? 02/03/2023 06:24 Nucleated RBC (Automated) 0.0 #/100 WBC'S ()?? 02/03/2023 06:24 Abs. NRBC 0.0 k/mm3 ()?? 02/03/2023 06:24 Abs. Neut 8.1 k/mm3 (High)?? 01/25/2023 06:37 Abs. Lymph 0.6 k/mm3 (Low)?? 01/25/2023 06:37 Abs. [place] 1.1 k/mm3 ()?? 01/25/2023 06:37 Abs. Eo 0.0 k/mm3 ()?? 01/25/2023 06:37 Abs. Baso 0.0 k/mm3 ()?? 01/25/2023 06:37 Neut % 81.3 % (High)?? 01/25/2023 06:37 Lymph % 6.3 % (Low)?? 01/25/2023 06:37 [place] % 11.4 % (High)?? 01/25/2023 06:37 Eos % 0.4 % ()?? 01/25/2023 06:37 Baso % 0.3 % ()?? 01/25/2023 06:37 Imm Gran 0.3 % ()?? 01/25/2023 06:37 Abs. Imm Gran 0.0 k/mm3 ()?? 01/25/2023 06:37 ?? BLOOD GAS pH 7.39 ()?? 01/30/2023 11:05 pCO2 64 mm Hg (High)?? 01/30/2023 11:05 pO2 96 mm Hg ()?? 01/30/2023 11:05 Bicarbonate, Estimated 38 mmol/L (High)?? 01/30/2023 11:05 Specimen Type - Blood Gas ARTERIAL ()?? 01/30/2023 11:05 Percent O2 (FIO2) 36 ()?? 01/29/2023 18:00 ?? CARDIAC Nt-Probnp 998 pg/mL (High)?? 01/24/2023 14:35 High Sensitivity Troponin (HSTnT) 19 ng/L ()?? 01/25/2023 06:37 ?? CHEM GENERAL Sodium 141 mmol/L ()?? 02/03/2023 06:24 Potassium 4.2 mmol/L ()?? 02/03/2023 06:24 Chloride 100 mmol/L ()?? 02/03/2023 06:24 Bicarbonate Level 34 mmol/L (High)?? 02/03/2023 06:24 Anion Gap 7 ()?? 02/03/2023 06:24 Glucose Level 95 mg/dL ()?? 02/03/2023 06:24 Glucose, POC 99 mg/dL ()?? 02/05/2023 07:44 Hemoglobin A1C (Monitoring) 7.0 % (High)?? 01/26/2023 07:36 BUN 28 mg/dL (High)?? 02/03/2023 06:24 Creatinine-Blood 1.0 mg/dL ()?? 02/03/2023 06:24 Estimated GFR Creatinine 82 ML/MIN/1.73 M2 ()?? 02/03/2023 06:24 Calcium 9.4 mg/dL ()?? 02/03/2023 06:24 Phosphorus 2.3 mg/dL (Low)?? 01/30/2023 00:35 Magnesium 2.2 mg/dL ()?? 02/01/2023 06:58 Protein, Total 6.1 Gm/dL (Low)?? 01/29/2023 00:36 Albumin 3.4 Gm/dL ()?? 01/30/2023 00:35 AG Ratio 1.3 ()?? 01/29/2023 00:36 Alkaline Phosphatase 107 units/L ()?? 01/29/2023 00:36 AST (SGOT) 29 units/L ()?? 01/29/2023 00:36 ALT (SGPT) 15 units/L ()?? 01/29/2023 00:36 Bilirubin, Total 0.7 mg/dL ()?? 01/29/2023 00:36 ? COAG D-Dimer 0.23 mg/L FEU ()?? 01/24/2023 14:35 ? MISC. CHEMISTRY Procalcitonin 0.17 ng/mL ()?? 01/29/2023 00:36 ? URINE OTHER Est Creatinine Clearance 69.26 mL/min ()?? 02/03/2023 07:15 ? VIROLOGY Influenza A PCR NEGATIVE ()?? 01/24/2023 14:00 Influenza B PCR NEGATIVE ()?? 01/24/2023 14:00 RSV PCR POSITIVE (Abnormal)?? 01/24/2023 14:00 COVID-19 PCR Specimen Source NASAL ()?? 01/24/2023 14:00 COVID-19 PCR Result NEGATIVE ()?? 01/24/2023 14:00 ? Imaging(s) ?Chest Portable ?? 01/30/2023 12:29??by Arsh Enrique MD ? IMPRESSION: ?? Right lung is clear. ?? Cannot accurately assess left lower lung or retrocardiac region as patient's hand is overlying the region, but no acute abnormality of the left upper or mid lung. ?Chest Portable ?? 01/24/2023 14:45??by Angelina Perez MD ?IMPRESSION: ?? Findings consistent with pulmonary vascular congestion, small left and trace right pleural effusions. ? 35_ minutes spent on discharge * Anne Alonzo RN: PERFORM, SIGN, VERIFY Event Display: Case Management Discharge Plan Authored Date: [id number] Patient: ADIEL ARCINIEGA Age: 77 years Sex: Male : 1945 Associated Diagnoses: None Author: Anne Alonzo RN Discharge Plan Case Management Discharge Plan : Case Management Discharge Plan Data 02/05/2023 10:42 EST Discharge Level of Care at Discharge [facility] facility Discharge Nursing Homes/Rehab Facilities [facility] Discharge [facility]ranged [facility] [phone] Discharge Arranged Transport Date/Time 02/05/2023 12:00 Mode of Transportation Arranged Ambulance Name of Agency #1 [facility] Additional Info for D/C Instructions You are being discharged back to [facility] today at 12PM. An ambulance will pick you up and bring you there. Name of Person Notified of Transfer Carla * Alberto CARVALHO, Madeline Munoz: PERFORM Event Display: Patient Education/Instruction Authored Date: [id number] Inpatient Adult Discharge Instructions [address] [address] Name: ADIEL ARCINIEGA : 1945 Visit: 01/24/2023 16:19:00 Current Date: 02/05/2023 11:12 Account: [id number] Inpatient Adult Discharge Instructions We would like [...] and their families. Surveys are administered by [employer] ?? If further treatment with your primary care physician or another doctor is recommended, it is important for you to keep the appointment. Call your primary care physician or return to the Emergency Department immediately if your condition worsens, fails to improve, or new symptoms develop. If you need to find a doctor, you can call [facility] Link for a referral at [phone] or toll free at [phone] ([phone]) or log in to [email or web address].. ?? [facility], in keeping with [facility] guidance, no longer requires face masks for staff, patientsor visitors in most situations. Similiar to time spent indoors at other locations, there is the chance that you were exposed to repiratory viruses during your time with us (such as flu or COVID-19). If you develop symptoms concerning for a viral respiratory infection, please seek testing (and treatment if indicated) from your medical provider or home test kit. ?? You can view and manage your care through the patient portal or by using a health care higinio of your choosing. [employer] is a website that allows you to securely view your medical information including your hospital discharge summary, office visit summaries, medications and follow-up visits. You can also request appointments, renew medications, and request access to your medical information using a health care higinio of your choosing, or just ask a question. You can enroll at [email or web address] or register during your next office visit. You have been discharged from [facility], Patient Care Unit: M7. If you have any questions regarding these instructions after you leave, please call us and we will be happy to assist you. [facility] Your Care Team Attending Physician Vikram VALLE, Mikayla Consulting Providers Tan KING, Kristofer Rios MD, Mallory Discharging Providers Mikayla Sue MD Reason for Admission pt presenting to the ED from SNF with SOB x2 hrs. hypoxic on in 80s, placed on 2L 91%. wheezing noted. Your Diagnosis Acute on chronic diastolic heart failure History of hypertrophic cardiomyopathy Atrial fibrillation Anxiety Bipolar disorder PTSD (post-traumatic stress disorder) HTN (hypertension) Type 2 diabetes mellitus Obstructive sleep apnea Acute on chronic respiratory failure with hypercapnia Chronic kidney disease Acute metabolic encephalopathy Acute kidney injury Respiratory syncytial virus infection Acute respiratory failure with hypoxia Right conjunctivitis Back pain Tests Performed Below is a partial list of the tests performed during your hospitalization. You may have had other tests and procedures not included in this list. Please discuss all test results with your provider. Albumin Level Basic Metabolic Panel Blood Gas Arterial BUN Calcium Level CBC CBC w/ Differential Comprehensive Metabolic Panel COVID-19, RSV, and Flu A/B, Rapid PCR Creatinine D Dimer Electrolytes Glucose Level GLUCOSE POC HEMOGLOBIN A1C High??Sensitivity??Troponin T Magnesium Level Phosphorus Level ProBNP PROCALCITONIN, SERUM Troponin T, High Sensitivity CXR Portable XR Chest Portable Primary Care Provider Sandrine Braun MD Advance Directive Health Care Proxy on File Yes - Health Care Proxy Yes - MOLST Discharge Vitals Temperature: 97.2 DegF Height: 186 cm Pulse Rate: 78 bpm Weight: 133.2 kg Respiratory Rate: 18 br/min Body Mass Index:??38.73 kg/m2??Critical Systolic Blood Pressure: 106 mm Hg Body surface area: 2.63 Systolic Blood Pressure: 106 mm Hg ?? Diastolic Blood Pressure: 63 mm Hg ?? Diastolic Blood Pressure: 63 mm Hg ?? Oxygen Saturation: 95 % ?? Studies Pending All tests and labs ordered during this hospital stay have been completed unless listed below. Please discuss all pending results with your provider listed above in these instructions. ?? Add On Lab Order Blood Gas Arterial (ABG) CBC UA W/Reflex Culture & Renal What to do next Instructions From Your Doctor it??is advised that you comply??with bipap at night/sleep. Discharge Orders You Need to Schedule the Following Appointments Follow Up with??Sandrine Braun MD When:??Within 1 week Why: Call to make appointment with primary care doctor. Where: ?? Discharge Medications ADIEL ARCINIEGA :1945 Visit Date:01/24/2023 Medications: Please continue your medications until treatment is completed or stopped by your provider. Medications not listed below should be discontinued. Discuss any questions related to medications with your provider. What How Much When Instructions Next Dose New Albuterol/ Ipratropium (albuterol- ipratropium 3 mg-0.5 mg/ 3 ml inhalation solution) BAND Nebulizer 4 times a day New Erythromycin Ophthalmic (erythromycin 0.5% ophthalmic ointment) 1 applicator Right eye 4 times a day New Metformin (metFORMIN 500 mg oral tablet) 1 tab(s) Oral Daily with meals ?? Changed Gabapentin (gabapentin 300 mg oral capsule) 600 Milligram Oral Daily at Bedtime Changed Metoprolol (metoprolol 50 mg oral tablet, extended release) 150 Milligram Oral Daily Changed Olanzapine (olanzapine 2.5 mg oral tablet) 1 tab(s) Oral Daily at Bedtime Changed Sertraline (Zoloft 25 mg oral tablet) 75 Milligram Oral Daily Unchanged Acetaminophen (acetaminophen 325 mg oral tablet) 2 tab(s) Oral Every 4 hours as needed for as needed for fever/pain Unchanged Amlodipine (amLODIPine 5 mg oral tablet) 1 tab(s) Oral Daily HOLD FOR SBP<100 HR<60 ?? Unchanged apixaban (apixaban 5 mg oral tablet) 1 tab(s) Oral Twice a day Unchanged Bisacodyl (Dulcolax 10 mg rectal suppository) 1 suppository(ies) Per rectum Daily as needed for as needed for constipation IF NO RESULTS FROM _x_ MIRALAX BY NEXT SHIFT ?? Unchanged BusPIRone (busPIRone 7.5 mg oral tablet) 1 tab(s) Oral Twice a day Unchanged Docusate-Senna (Senna Plus 50 mg-8.6 mg oral tablet) 2 tab(s) Oral Daily as needed for Constipation Unchanged Emollients, Topical (Cetaphil Moisturizing) 1 higinio Topically Daily Apply lotion to bilateral lower and upper extremities every day shift. ?? Unchanged Emollients, Topical (Remedy Phytoplex Z-Guard paste) 1 higinio Topically 3 times a day Apply to buttock topically every day and evening shift for MASD ?? Unchanged Finasteride (finasteride 5 mg oral tablet) 1 tab(s) Oral Daily WEAR GLOVES WHEN HANDLING ?? Unchanged Furosemide (furosemide 40 mg oral tablet) 1 tab(s) Oral Daily Unchanged Lidocaine Topical (lidocaine 5% topical cream) 1 higinio Topically 4 times a day Unchanged Magnesium Oxide (Mag-Ox 400 400 mg [...] NO Bm in 3 days ?? Unchanged Ocular Lubricant (Artificial Tears preserved solution) 1 Drops Both eyes Daily as needed for for dry eyes Unchanged Polyethylene Glycol 3350 (MiraLax Powder) 17 gram Oral Daily as needed for Constipation Unchanged Simethicone (simethicone 80 mg oral tablet, chewable) 1 tab(s) Chew Every 12 hours as needed for Gas Unchanged Sodium Biphosphate-Sodium Phosphate (Fleet Enema 19 gm-7 gm rectal enema) 118 Milliliter Per rectum Once as needed for as needed for constipation IF NO RESULT FROM DULCOLAX WITHIN 2 HOURS ?? Unchanged Tamsulosin (tamsulosin 0.4 mg oral capsule) 2 capsule Oral Daily ?? What How Much When Comments Stop Taking Alprazolam (Xanax 0.25 mg oral tablet) 1 tab(s) Oral Daily at Bedtime Stop Taking Alprazolam (Xanax 0.5 mg oral tablet) 1 tab(s) Oral Daily in the morning Stop Taking nalOXONE (nalOXONE 0.4 mg/ mL injectable solution) 0.4 Milligram Intramuscular Once as needed for as needed Stop Taking Trazodone (traZODone 50 mg oral tablet) 1 tab(s) Oral Daily at Bedtime Test Results Below is a partial list of the most recent Laboratory test results done prior to this discharge. You may have had other tests and procedures not included in this list. Please discuss all test resultswith your provider. Est Creatinine Clearance - 69.26 mL/min (02/03/2023) Albumin Level (01/30/2023) ???Albumin - 3.4 Gm/dL Basic Metabolic Panel (02/03/2023) ???Sodium - 141 mmol/L???Potassium - 4.2 mmol/L???Chloride - 100 mmol/L???Bicarbonate Level - 34 mmol/L???Anion Gap - 7???Glucose Level - 95 mg/dL???BUN - 28 mg/dL???Creatinine-Blood - 1.0 mg/dL???Estimated GFR Creatinine - 82 ML/MIN/1.73 M2???Calcium - 9.4 mg/dL Blood Gas Arterial (01/29/2023) ???pH - 7.37???pCO2 - 70 mm Hg???pO2 - 85 mm Hg???Bicarbonate, Estimated - 40 mmol/L???Specimen Type - Blood Gas - ARTERIAL???Percent O2 (FIO2) - 36 BUN (01/30/2023) ???BUN - 36 mg/dL Calcium Level (01/30/2023) ???Calcium - 9.3 mg/dL CBC (02/03/2023) ???WBC - 9.6 k/mm3???RBC - 4.87 m/mm3???Hgb - 15.1 Gm/dL???Hct - 46.4 %???MCV - 95.3 femtoliters???MCH - 31.0 pg???MCHC - 32.5 g/dL???Platelet Count - 147 k/mm3???RDW-SD - 46.2 femtoliters???MPV - 11.9 femtoliters???Nucleated RBC (Automated) - 0.0 #/100 WBC'S???Abs. NRBC - 0.0 k/mm3 CBC w/ Differential (01/25/2023) ???WBC - 10.0 k/mm3???RBC - 5.00 m/mm3???Hgb - 15.5 Gm/dL???Hct - 47.9 %???MCV - 95.8 femtoliters???MCH - 31.0 pg???MCHC - 32.4 g/dL???Platelet Count - 122 k/mm3???RDW-SD - 48.1 femtoliters???MPV - 11.0 femtoliters???Nucleated RBC (Automated) - 0.0 #/100 WBC'S???Abs. NRBC - 0.0 k/mm3???Abs. Neut - 8.1 k/mm3???Abs. Lymph - 0.6 k/mm3???Abs. [place] - 1.1 k/mm3???Abs. Eo - 0.0 k/mm3???Abs. Baso - 0.0 k/mm3???Neut % - 81.3 %???Lymph % - 6.3 %???[place] % - 11.4 %???Eos % - 0.4 %???Baso % - 0.3 %???Imm Gran - 0.3 %???Abs. Imm Gran - 0.0 k/mm3 Comprehensive Metabolic Panel (01/29/2023) ???Sodium - 142 mmol/L???Potassium - 4.6 mmol/L???Chloride - 99 mmol/L???Bicarbonate Level - 34 mmol/L???Anion Gap - 9???Glucose Level - 120 mg/dL???BUN - 42 mg/dL???Creatinine-Blood - 1.1 mg/dL???Estimated GFR Creatinine - 70 ML/MIN/1.73 M2???Calcium - 9.5 mg/dL???Protein, Total - 6.1 Gm/dL???Albumin - 3.5 Gm/dL???AG Ratio - 1.3???Alkaline Phosphatase - 107 units/L???AST (SGOT) - 29 units/L???ALT (SGPT) - 15 units/L???Bilirubin, Total - 0.7 mg/dL COVID-19, RSV, and Flu A/B, Rapid PCR (01/24/2023) ???Influenza A PCR - NEGATIVE???Influenza B PCR - NEGATIVE???RSV PCR - POSITIVE???COVID-19 PCR Specimen Source - NASAL???COVID-19 PCR Result - NEGATIVE Creatinine (01/30/2023) ???Creatinine-Blood - 1.2 mg/dL???Estimated GFR Creatinine - 64 ML/MIN/1.73 M2 D Dimer (01/24/2023) ???D-Dimer - 0.23 mg/L FEU Electrolytes (01/30/2023) ???Sodium - 144 mmol/L???Potassium - 4.2 mmol/L???Chloride - 99 mmol/L???Bicarbonate Level - 36 mmol/L???Anion Gap - 9 Glucose Level (01/30/2023) ???Glucose Level - 121 mg/dL GLUCOSE POC (02/05/2023) ???Glucose, POC - 99 mg/dL HEMOGLOBIN A1C (01/26/2023) ???Hemoglobin A1C (Monitoring) - 7.0 % High??Sensitivity??Troponin T (01/24/2023) ???High Sensitivity Troponin (HSTnT) - 20 ng/L Magnesium Level (02/01/2023) ???Magnesium - 2.2 mg/dL Phosphorus Level (01/30/2023) ???Phosphorus - 2.3 mg/dL ProBNP (01/24/2023) ???Nt-Probnp - 998 pg/mL PROCALCITONIN, SERUM (01/29/2023) ???Procalcitonin - 0.17 ng/mL Troponin T, High Sensitivity (01/25/2023) ???High Sensitivity Troponin (HSTnT) - 19 ng/L Allergies (NKA means No Known Allergies) NKA Problems Active Problems??(1) Obese class II?? Education Materials Below is the list of Educational Leaflet Providered with your Discharge Instructions. Erythromycin Oral Tablet?? Metformin Oral Tablet?? RSV (Respiratory Syncytial Virus) Infection?? Heart Failure Discharge Instructions for Heart Failure?? Discharge Instructions for Atrial Fibrillation?? Discharge Instructions for Acute Kidney Injury?? Continuous Positive Air Pressure (CPAP)?? What Are Snoring and Obstructive Sleep Apnea??? What Is a BiPAP??? Valuables and Belongings I fully understand and agree that [facility] accepts no responsibility for all my personal [...] to send valuables and belongings home. ?? No Valuables/Belongings: No valuables/belongings present Review of Valuable and Belonging List: With patient Date for Pt to Sign Valuables/Belongings: 01/26/23 05:05:00 ?? Other Discharge Information ? Case Management Discharge Plan?? Discharge Plan?? Discharge Agency Information?? Discharge Level of Care at Discharge: [facility] facility [facility] Agency [facility] Transportation [facility]: [facility] [phone] Additional Info for D/C Instructions: You are being discharged back to [facility] today at 12 PM. An ambulance will pick you up and bring you there. Mode of Transportation Arranged: Ambulance Name of Person Notified of Transfer: Carla Discharge Arranged Transport Date/Time: 02/05/23 12:00:00 ?? Discharge Nursing Homes/Rehab Facilities: [facility] [place] ? Pulmonary Rehab Status?? Pulmonary Rehab Discharge Status?? CPAP/BiPAP Mask Type: Full CPAP/BiPAP Mask Size: Medium Respiratory Rate: 18 br/min ? Common Emergency Awareness Tips IS [...] are strongly encouraged to quit. Please call [facility] [employer] Link at [phone] or [phone]) or log in to [email or web address] for referrals to smoking cessation programs. ?? 975 Suicide & Crisis Lifeline is available 09/09 if you or someone you know needs to find a reason to keep living. By calling 477 you'll be connected to a skilled, trained counselor at a crisis center in your area. INPATIENT DISCHARGE INSTRUCTIONS SIGNATURE ADIEL CHAPARRO Location:[facility] Registration Date and Time:01/24/2023 16:19 EST Primary Care Physician: Sandrine Braun MD, Attending Physician: Mikayla Sue MD, ADIEL CHEW, have received the above patient education materials/instructions and have verbalized understanding. If ambulance or transport services are being used I further acknowledge being given a choice of service. ?? If you need to contact me, please call me at this number: . Patient/Warp Spooler Name: Patient/Warp Spooler Signature: Relationship to Patient: Witness Name/Signature: Date: * Madeline Dominguez RN: PERFORM Event Display: Patient Education Leaflets Authored Date: [id number] Erythromycin Oral Tablet ?? 93597-95 Erythromycin Oral Tablet Brands: Erythrocin Stearate Uses For treating bacterial infection. ?? Instructions Swallow the medicine without crushing or chewing it. It is better to take this medicine on an empty stomach. However, if the medicine is not tolerated well, it may be taken with food. Keep the medicine at room temperature. Avoid heat and direct light. Tell your doctor if you have severe or persistent sweating, diarrhea or vomiting. These can increase your risk of a serious side effect. If you forget to take a dose [...] about all medicines taken. Include prescription and egiu-wpm-hspqqxh medicines, vitamins, and herbal medicines. Speak with your doctor or pharmacist before starting or stopping any medicine. Tell your doctor if symptoms do not get better or if they get worse. Keep using this medicine for the full number of days that it is prescribed. Do not stop the medicine even if you start to feel better. ?? Cautions Tell your doctor and pharmacist if you ever had an allergic reaction to a medicine. Do not use the medication any more than instructed. Speak with your health care provider before receiving any vaccinations. Please tell your doctor if you have moderate to severe diarrhea while on this medicine. Do not treat the diarrhea with zshw-lke-ezlgkdp diarrhea medicine. Tell the doctor or pharmacist if [...] experience these or other side effects. ??? decreased appetite ??? diarrhea ??? nausea and vomiting ??? stomach upset or abdominal pain Call your doctor or get medical help right away if you notice any of these more serious side effects: ??? severe, watery or bloody diarrhea ??? dizziness ??? fainting ??? hearing loss ??? fast or irregular heart beats ??? signs of liver damage (such as yellowing of eye or skin, dark urine, or unusualtiredness) ??? yeast infection of mouth A few people may have an allergic reaction to this medicine. Symptoms can include difficulty breathing, skin rash, itching, swelling, or severe dizziness. If you notice any of these symptoms, seek medical help quickly. ?? Extra Please speak with your doctor, nurse, or pharmacist if you have any questions about this medicine. ?? [email or web address] IMPORTANT NOTE: This document tells you briefly how to take your medicine, but it does not tell youall there is to know about it. Your doctor or pharmacist may give you other documents about your medicine. Please talk to them if you have any questions. Always follow their advice. There is a more complete description of this medicine available in Martiniquais. Scan this code on your smartphone or tablet or use the web address below. You can also ask your pharmacist for a printout. If you have any questions, please ask your pharmacist. The display and use of this drug information is subject to Terms of Use. Copyright(c) 2022 [employer]. ?? [employer]. All rights reserved. This information is not intended as a substitute for professional medical care. Always follow your healthcare professional's instructions. ?? * Alberto CARVALHO, Madeline Munoz: PERFORM Event Display: Patient Education Leaflets Authored Date: [id number] Metformin Oral Tablet ?? [id number] Metformin Oral Tablet Brands: Glucophage Uses This medicine is used for the following purposes: ??? diabetes ??? endocrine disorder ?? Instructions Take the medicine with food. This medicine will work best if you take it at about the same time every day. Store at room temperature away from heat, light, and moisture. Do not keep in the bathroom. Drink plenty of water while on this medicine. Tell your doctor if you have severe or persistent sweating, diarrhea or vomiting. These can increase your risk of a serious side effect. It is important that you keep taking [...] about all medicines taken. Include prescription and yogb-jnd-mbsieij medicines, vitamins, and herbal medicines. Speak with your doctor or pharmacist before starting or stopping any medicine. This medicine usually does not cause low blood sugar levels if you eat regular meals. Symptoms of low blood sugar may include nausea, shaking, sweating, cold skin, fast heartbeat, hunger, and irritability. Keep all appointments for medical exams and tests while on this medicine. ?? Cautions Tell your doctor and pharmacist if you ever had an allergic reaction to a medicine. This medicine is associated with a rare but very serious medical condition. Please speak with your doctor about symptoms you should look out for while on this medicine. Notify your doctor immediatelyif you develop those symptoms. Do not use the medication any more than instructed. Your ability to stay alert or to react quickly may be impaired by this medicine. Do not drive or operate machinery until you know how this medicine will affect you. Please check with your doctor before drinking alcohol while on this medicine. This medicine passes into breast milk. Ask your doctor before . During , this medicine should be used only when clearly needed. Talk to your doctor about the risks and benefits. Do not share this medicine with anyone who has not been prescribed this medicine. ?? Side Effects The following is a list of some common side effects from this medicine. Please speak with your doctor about what you should do if you experience these or other side effects. ??? diarrhea ??? excess gas ??? nausea and vomiting ??? stomach upset or abdominal pain ??? changesin taste or unpleasant taste ??? weakness Call your doctor or get medical help right away if you notice any of these more serious side effects: ??? chills ??? dizziness or drowsiness ??? feeling cold or numb, especially in arms and legs ??? fast, irregular, or slow heartbeat ??? muscle pain ??? pale or blue skin, lips or fingernails ??? rapid breathing ??? shortness of breath ??? unusual or unexplained tiredness or weakness ??? severe or persistent vomiting A few people may have an allergic reaction to this medicine. Symptoms can include difficulty breathing, skin rash, itching, swelling, or severe dizziness. If you notice any of these symptoms, seek medical help quickly. ?? Extra Please speak with your doctor, nurse, or pharmacist if you have any questions about this medicine. ?? [email or web address] IMPORTANT NOTE: This document tells you briefly how to take your medicine, but it does not tell youall there is to know about it. Your doctor or pharmacist may give you other documents about your medicine. Please talk to them if you have any questions. Always follow their advice. There is a more complete description of this medicine available in Martiniquais. Scan this code on your smartphone or tablet or use the web address below. You can also ask your pharmacist for a printout. If you have any questions, please ask your pharmacist. The display and use of this drug information is subject to Terms of Use. Copyright(c) 2022 [employer]. ?? [employer]. All rights reserved. This information is not intended as a substitute for professional medical care. Always follow your healthcare professional's instructions. ?? * Alberto CARVALHO, Madeline Munoz: PERFORM Event Display: Patient Education Leaflets Authored Date: RSV (Respiratory Syncytial Virus) Infection ?? 18485 RSV (Respiratory Syncytial Virus) Infection RSV (respiratory syncytial virus) is a common cause of respiratory infections in people of all ages.??RSV occurs more often in the winter and early spring. RSV is so common that almost all children have had the virus by age 2. Older adults and people who have weak immune systems can get RSV again later in life. This is because their immunity to RSV goes down over time.??RSV symptoms are often mild. But RSV can be a serious problem for high-risk infants, young children, and older adults. These groups may have more serious infections and trouble breathing. How RSV spreads RSV spreads easily when a person with the infection coughs or sneezes. It spreads by direct contactwith an infected person. For example, kissing a child with RSV spreads the virus. And the virus canlive on hard surfaces. A person can get RSV by touching something with the virus on it. These can include crib rails and doorknobs. It spreads quickly in group settings, such as daycare and schools. Viruses that cause RSV spread through the air in droplets when someone who has RSV coughs, sneezes,laughs, or talks. ?? Symptoms of RSV Most babies and children with RSV have the same symptoms as a cold or flu. These include a stuffy or runny nose, a cough, headache, and a low-grade fever. Some may develop bronchiolitis. This condition is when the small airways in the lungs (bronchioles) become inflamed. It causes wheezing, shortness of breath, fast breathing, and increased cough. Children, older adults, and people with a very weak immune system may get pneumonia. ?? Treating RSV RSV most often goes away on its own. There is no treatment for RSV in most cases. Care for babies, children, and adults is generally supportive to manage symptoms. Antibiotics are not used unless a bacterial infection develops.?? To ease symptoms: ??? Manage fever. Ask your healthcare provider or nurse about lowering you or your child's fever. Know what medicine to use and how much and how often to use it. You also need to know which medicinesnot to use. For example, never give children and teens aspirin or any medicines containing aspirin.It's linked with side effects, such as an upset stomach, intestinal bleeding and, most seriously, Jose Guadalupe syndrome. ??? Dress in layers to not get overheated. Make sure your child isn't wearing too muchclothing.? Stay hydrated. If your child is old enough, give them fluids, such as water and??juice. ??? Treat a stuffy nose. For babies and young children, remove mucus from??their nose with a rubber bulb suction device.??Be gentle so you don't cause more swelling and mild pain. Ask your child???s provider or nurse for instructions. Consider using a steam or heated humidifier to open blocked nasal passages. Older children and adults can pick pulling machine operator a warm shower. ??? Avoid tobacco smoke. Don???t let anyone smoke around your child. Stay out of public areas where smoking occurs. For severe symptoms People with severe symptoms need to be treated in the hospital. They are watched closely. They may have treatment such as: ??? IV (intravenous) fluids ??? Oxygen? Suctioning of??mucus ??? Breathing treatments ??? Anti-inflammatory medicine such as steroids Those with very serious breathing problems have a breathing tube. The tube is put in the throat anddown into the lungs. This is called intubation. The tube is attached to a machine (ventilator) thathelps them breathe. ? When to call the healthcare provider Call your provider right away if you or your child have any of these symptoms: ??? Fever (see Feverand children below) . For adults, call for a fever of 100.4?? F ( 38??C) or higher, or fever that doesn't go down with medicine, or as advised by your healthcare provider. ??? A seizure with a high fever ??? A cough that's getting worse or with colored mucus or blood ??? Wheezing, breathing faster than normal, or trouble breathing ??? Flaring the nostrils or straining the chest or stomach while breathing (most commonly in young children) ??? Skin around the mouth or fingers that turns a blue color ??? Restlessness or grouchiness, can't be soothed ??? Trouble eating, drinking, or swallowing ??? Shortness of breath ??? Confusion ??? Dizziness ??? Needing to sit upright (in bed or in a chair) to breathe or catch breath ?? Fever and children Use a digital thermometer to check your child???s temperature. Don???t use a mercury thermometer. There are different kinds and uses of digital thermometers. They include: ??? Rectal. For children younger than 3 years, a rectal temperature is the most accurate. ??? Forehead (temporal). This works for children age 3 months and older. If a child under 3 months old has signs of illness, this can be used for a first pass. The provider may want to confirm with a rectal temperature. ??? Ear (tympanic). Ear temperatures are accurate after 6 months of age, but not before. ??? Armpit (axillary). This is the least reliable but may be used for a first pass to check a child of any age with signs of illness. The provider may want to confirm with a rectal temperature. ??? Mouth (oral). Don???t use a thermometer in your child???s mouth until they are at least 4 years old. Use a rectal thermometer with care. Follow the product maker???s directions for correct use. Insertit gently. Label it and make sure it???s not used in the mouth. It may pass on germs from the stool. If you don???t feel OK using a rectal thermometer, ask the healthcare provider what type to use instead. When you talk with any healthcare provider about your child???s fever, tell them which type you used. Below is when to call the healthcare provider if your child has a fever. Your child???s healthcare provider may give you different numbers. Follow their instructions. When to call a healthcare provider about your child???s fever For a baby under 3 months old: ??? First, ask your child???s healthcare provider how you should take the temperature. ??? Rectal or forehead: 100.4??F (38??C) or higher ??? Armpit: 99??F (37.2??C) or higher ??? A fever of as advised by the provider For a child age 3 months to 36 months (3 years): ??? Rectal or forehead: 102??F (38.9??C) or higher ??? Ear (only for use over age 6 months): 102??F(38.9??C) or higher ??? A fever of as advised by the provider In these cases: ??? Armpit temperature of 103??F (39.4??C) or higher in a child of any age ??? Temperature of 104??F (40??C) or higher in a child of any age ??? A fever of as advised by the provider ?? Preventing RSV infection To help prevent the infection: ??? Clean your hands before and after holding or touching your child.??Use an alcohol-based hand cleaner greaser that contains at least 60% alcohol. Or wash your hands with soap and clean, running water for at least 20 seconds.? Clean all surfaces with disinfectant ropewalk rope maker or wipes. ??? Teach your child how to wash their hands correctly and when to wash them. Have your child wash their hands often.Teach them to wash their hands for as long as it takes to sing the ABC song or the Happy Birthday song. Or have them use an alcohol-based hand cleaner greaser that contains at least 60% alcohol. ??? Have allfamily members or caregivers clean their hands before and after holding or touching your child. ???Closely watch your own health and that of family members and your child???s friends. Try to preventcontact between your child and those with a cold or fever. ??? Don???t smoke around your child, anddon't let anyone else smoke around your child, including caregivers and family members. Don't smokein your house or car. Keep your child out of any area where smoking occurs. ??? Ask your??child's healthcare provider if your child is at risk for RSV. Babies and children at high risk for RSV infection may get a medicine called monoclonal antibodies. These are given as a series of shots (injections) during RSV season. They help prevent the illness in premature babies or kids with health problems like certain heart conditions. A single RSV antibody shot for all babies under 8 months and some older babies at risk for severe RSV been approved by the FDA and CDC. ??? Talk with your healthcare provider if you are age 60 or older. An RSV vaccine is available to help protect adults in this age group from RSV. Your healthcare provider can give you more information. ?? Date last modified: 09/20/2022 ?? Last Reviewed Date: 2021 ?? [employer]. All rights reserved. This information is not intended as a substitute for professional medical care. Always follow your healthcare professional's instructions. ?? Patient Care team information Care Team Personnel Name: Guadalupe Marie RN Position: [facility] RN Member Role: Primary Care Nurse Name: Melida Sabillon RN Position: [facility] RN Member Role: Primary Care Nurse Name: Cristiana Reddy NP Position: [facility] Associate Professional Member Role: Primary Care Nurse Address: Address: [address] [place] [id number]- Name: Gen Henry MD Position: [facility] Renal Member Role: [employer] Consulting Physician Address: Address: [address] [place] [address], [address] [place] [address]- Name: Ben Mcdowell RN Position: [facility] RN Member Role: Primary Care Nurse Name: Shanae Zamudio Position: S RN Member Role: Primary Care Nurse Name: Shaina Gonzalez RN Position: [facility] RN Member Role: Primary Care Nurse Name: Disha Carlos Position: [facility] RN Supv Member Role: Primary Care Nurse Name: Sandrine Braun MD Position: [facility] Physician - Primary Care Member Role: PCP Address: Address: [address] [place] [address] [address] [facility] [place] [address]- Name: Christina RN, Sandra Willard Position: [facility] ED RN W/OE and Tasks Member Role: Primary Care Nurse Name: Alfredo Rivera RN Position: [facility] ED RN W/OE and Tasks Member Role: Primary Care Nurse Name: Vicenta Guzmán RN Position: [facility] RN Member Role: Primary Care Nurse Name: Vale Boyd RN Position: [facility] AMB Nurse Member Role: Primary Care Nurse Name: Disha Major RN Position: [facility] Metal Filer Member Role: Primary Care Nurse Name: Deepti James RN Position: [facility] RN Member Role: Primary Care Nurse Name: Cristy Swartz RN Position: [facility] RN Member Role: Primary Care Nurse Name: Valentin Shearer RN Position: [facility] RN Member Role: Primary Care Nurse Name: Lucinda MCKEON Attending Position: [facility] ED Medicine MD Name: Alayna Norris Position: [facility] ED RN W/OE and Tasks Member Role: Patient Care Provider Name: Elle Mckeon Position: [facility] ED TA [facility] Member Role: Patient Care Provider Name: Suzan Márquez Position: [facility] ED OA Charge Member Role: ED Associate Care Team Related Persons Name: CARLA ARCINIEGA Address: home [address] [place] [address]
[2023-07-29 12:25] LABS: MANUAL DIFF FLAG NO
[2023-07-29 12:28] LABS: Basophils Percent Auto 0.5 % (0-2); Eosinophils Absolute Auto 0.4 X10*3/uL (0.0-0.4); Eosinophils Percent Auto 4.1 % (0-4); Hematocrit 42.6 % (42.0-52.0); Hemoglobin 13.9 g/dl (14.0-18.0); Imm Gran Abs Auto 0.02 X10*3/uL (0.00-0.03); Imm Gran Pct Auto 0.2 % (0.0-0.4); Lymphocytes Absolute Auto 1.5 X10*3/uL (1.2-4.9); Lymphocytes Percent Auto 17.7 % (20-40); Mean Corpuscular HGB Conc 32.6 g/dl (31.0-36.0); Mean Corpuscular Hemoglobin 32.1 pg (27.0-33.0); Mean Corpuscular Volume 98.4 fL (80.0-98.0); Mean Platelet Volume 11.3 fL (9.4-12.4); Monocytes Absolute Auto 0.9 X10*3/uL (0.1-1.2); Monocytes Percent Auto 10.5 % (2-11); Neutrophils Absolute Auto 5.7 x10*3/uL (2.0-8.3); Platelet Count 122 X10*3/uL (160-400); Red Blood Count 4.33 X10*6/uL (4.60-5.80); Red Cell Distribution Width 13.6 % (11.0-16.0); White Blood Count 8.5 X10*3/uL (4.8-10.8)
[2023-07-29 12:40] LABS: Alanine Aminotransferase 11 U/L (0-40); Albumin Level 3.5 g/dL (3.5-5.0); Alkaline Phosphatase 156 U/L (39-117); Anion Gap 11 (12-20); Aspartate Amino Transferase 18 U/L (5-37); Bilirubin Total 0.7 mg/dL (0.0-1.0); Blood Urea Nitrogen 26 mg/dL (9-16); Calcium 9.3 mg/dL (8.4-10.2); Carbon Dioxide 34 mmol/L (22-29); Chloride 104 mmol/L (96-108); Estimated Glomerular Filt Rate > 60; Glucose Random 128 mg/dL (60-115); Potassium 4.4 mmol/L (3.3-5.1); Sodium 145 mmol/L (135-145); Total Protein 6.2 g/dL (6.5-8.0)
[2023-07-29 12:46] LABS: B Type Natriuretic Peptide 346 pg/mL (<100)
[2023-07-29 12:47] LABS: Troponin-I High Sensitivity 5.3 ng/L (<3.5-35.0)
--- NOTE | 2023-07-29 13:15 | ED_ITS ---
HPI - Back Pain/Injury General Chief Complaint: Back Pain/Injury Stated Complaint: BACK PAIN,NO INJURY FROM SNF PER EMS Time Seen by Provider: 07/29/23 13:13 Source: patient Mode of arrival: EMS Limitations: no limitations History of Present Illness ED Provider: Dr. Rajesh Rodriguez HPI Narrative: 77-year-old male with a history of back pain, decubitus ulcers, obstructive sleep apnea, bipolar disorder, PTSD, hypertrophic cardiomyopathy, anxiety, depression, hypertension who presents emergency department for evaluation of right groin pain and left lower quadrant pain. The patient points to his right groin often on for many years. He states that yesterday the pain in his right groin area came back and was [id number] in intensity. He also developed left lower quadrant pain which was new. He states that came on gradually yesterday her any describes the pain is a ?constant toothache? ?which is 9/10 at its worst. Patient received Tylenol at his care facility with no relief his pain. He states the pain got worse and he was sent to the emergency department for evaluation. Patient complains of bilateral lower extremity swelling he states that his doctor put him on a water pill recently but this is not improved to swelling. He denied fever, chills, chest pain, shortness of breath. He has had nausea with no vomiting. He has had diarrhea with 3-4 soft stools per day. He states that he has very poor vision and could not tell if there was blood in his stool. Related Data Home Medications ?Medication ?Instructions ?Recorded ?Confirmed alprazolam 0.25 mg tablet (Xanax) 0.25 mg PO TID PRN Anxiety 04/26/20 09/18/20 amlodipine 5 mg tablet 5 mg PO DAILY 04/26/20 09/18/20 citalopram 20 mg tablet 20 mg PO DAILY 04/26/20 09/18/20 clonidine 0.2 mg/24 hr weekly 1 patch transdermal QWEEK 04/26/20 09/18/20 transdermal patch gabapentin 300 mg capsule 300 mg PO BID 04/26/20 09/18/20 losartan 100 mg tablet 100 mg PO DAILY 04/26/20 09/18/20 buspirone 10 mg tablet 10 mg PO BID 07/06/20 09/18/20 furosemide 20 mg tablet (Lasix) 20 mg PO DAILY 07/06/20 09/18/20 oxybutynin chloride 15 mg 15 mg PO DAILY 07/06/20 09/18/20 tablet,extended release 24 hr propranolol 80 mg capsule,24 80 mg PO BID 07/06/20 09/18/20 hr,extended release (Inderal LA) Previous Rx's ?Medication ?Instructions ?Recorded finasteride 5 mg tablet 5 mg PO DAILY 90 days #90 tabs 08/02/20 tamsulosin 0.4 mg capsule 0.4 mg PO BEDTIME 90 days #90 caps 08/02/20 cephalexin 500 mg capsule 500 mg PO Q8H #30 caps 09/20/20 meloxicam 15 mg tablet 15 mg PO DAILY #10 tabs 09/20/20 oxycodone 5 mg tablet 5 mg PO Q6H PRN Pain, Severe (Pain 09/20/20 Scale 7-10) #20 tabs Allergies Allergy/AdvReac Type Severity Reaction Status Date / Time No Known Allergies Allergy Verified 07/29/23 11:50 Review of Systems 2 Review of Systems: Yes all other systems are reviewed and are negative [facility] Past Medical History [facility] Narrative: Social history: The patient is a resident of [facility]. He denies tobacco, alcohol and drug use. Medical History (Updated 07/29/23 @ 22:21 by Rajesh Rodriguez MD) Back pain Decubital ulcer AGUEDA (obstructive sleep apnea) Bipolar disorder PTSD (post-traumatic stress disorder) Hypertrophic cardiomyopathy Urethral stricture Acute urinary retention Anxiety Depression HTN (hypertension) Social History Social History Alcohol intake: never Smoked in Last 30 Days: No Use of substances other than those prescribed or required for medical reasons: No Advance Directives: Yes Advance Directives on File: Yes Advance Directives Date on File: 04/26/20 Do you have a plan to hurt others: No Plan service: Yes Current occupational status: retired and disabled Physical Exam 2 Vital Signs: Vital Signs: Last Vital Signs Temp 97.6 F 07/29/23 16:26 Pulse 98 07/29/23 21:10 Resp 18 07/29/23 21:10 BP 177/60 H 07/29/23 21:10 Pulse Ox 93 07/29/23 21:10 O2 Del Method BiPAP 07/29/23 21:10 O2 Flow Rate 30 07/29/23 21:10 BMI result Body Mass Index 41.7 Vital signs were normal except for low O2 saturation of 86% on room air Exam: General: Awake, does not appear to be in distress but is complaining of 9/10 pain. Weight is 147.41 kg, BMI is elevated 41.7 kg per m2 Head: Normocephalic, atraumatic EENT: PERRL, Lids normal, sclera normal, conjunctiva normal, nose normal , ears normal, throat without erythema or exudates Neck: Supple, no adenopathy Lung: breath sounds symmetric, no wheezing, rales or rhonchi Chest: symmetric movement, nontender Heart: regular rate and rhythm, normal S1, S2 no murmurs or rubs Abdomen: Obese, mild right lower quadrant tenderness, moderate left lower quadrant tenderness, no CVA tenderness, normoactive bowel sounds, no rebound Back: no vertebral tenderness, no CVAT Extremities: 1 to 2+ pitting edema bilaterally symmetric Neuro: Awake, alert, oriented, normal speech, cranial nerves intact, moves all extremities symmetrically Psych: Pleasant, cooperative Medications Administered Discontinued Medications Generic Name Dose Route Start Last Admin Trade Name Freq PRN Reason Stop Dose Admin Furosemide 60 mg 07/29/23 14:11 07/29/23 14:20 Furosemide 100 Mg/10 Ml Vial IVPUSH 07/29/23 14:12 60 mg ONCE ONE Administration Protocol Iohexol 100 ml 07/29/23 15:17 07/29/23 15:17 Iohexol 350 Mg/Ml 100 Ml Infus..Btl IV 07/29/23 15:18 100 ml ONCE ONE Administration Ketorolac Tromethamine 15 mg 07/29/23 13:23 07/29/23 13:34 Ketorolac Tromethamine 15 Mg/Ml Vial IVPUSH 07/29/23 13:24 15 mg ONCE STA Administration Ondansetron HCl 4 mg 07/29/23 13:23 07/29/23 13:34 Ondansetron Hcl 4 Mg/2 Ml Vial IVPUSH 07/29/23 13:24 4 mg ONCE ONE Administration Medical Decision Making Medical Decision Making MDM Narrative: 77-year-old male with a history of back pain, decubitus ulcers, obstructive sleep apnea, bipolar disorder, PTSD, hypertrophic cardiomyopathy, anxiety, depression, hypertension who presents emergency department for evaluation of right groin pain and left lower quadrant pain. Patient has right lower quadrant pain is been on and off for many years but started back yesterday. He also developed left lower quadrant pain yesterday which is new, came on gradually, became progressively worse and was 9/10. Patient had associated nausea with no vomiting. He has had 3-4 loose stools per day. Vital signs were normal except for an O2 saturation of 86% on room air-patient does not wear oxygen, on 4 L via nasal cannula O2 sat was 91%. Abdominal exam revealed mild right lower quadrant tenderness and moderate left lower quadrant tenderness, 1 to 2+ pitting edema in his lower extremities. Differential diagnosis: ?Includes but is not limited to diverticulitis, pancreatitis, renal colic, ureteral stone, congestive heart failure, pneumonia, anemia, electrolyte abnormalities Following evaluation was ordered: CBC, comprehensive metabolic panel, BNP, urinalysis, chest x-ray one view, CT scan of the abdomen pelvis with IV contrast Patient was initially treated with the following: IV insert, cardiac monitoring, O2 saturation monitoring, Toradol 15 mg IV, Zofran 4 mg IV, oxygen 4 L via nasal cannula Course: 16:02 My interpretation patient's laboratory evaluation is as follows: CBC was normal except for low platelet count of a 053643. BUN is elevated 26 with a normal creatinine of 1.1. Glucose elevated 134. CO2 elevated 34. Alk-phos elevated 156. BNP elevated 346. My interpretation patient's one view chest x-ray is as follows: Cardiomegaly with increased interstitial infiltrates bilaterally consistent with congestive heart failure, the increased interstitial infiltrates are new compared to previous chest x-ray dated 04/26/2020. Patient did have hypoxia while he was getting his CT scan in radiology, O2 saturation was down to 83% and he was placed on 6 L of oxygen via nasal cannula and is currently back down to 4 L of oxygen via nasal cannula. The patient was treated with Lasix 60 mg IV. The patient was also ordered to get a Hernandez catheter so that we can track his urinary output. Patient does have obstructive sleep apnea and uses CPAP at night. I did order BiPAP to be may be converted to CPAP once we diuresed and further. There is significant delay in radiology readings secondary to issues with the PACS system and with Radiology overload, the CT scan of the abdomen pelvis is pending. 22:18 Start physician observation at 22:18 hours The patient had a 1000 cc of urine output after receiving Lasix 60 mg IV. The patient remains on CPAP for his sleep apnea. There has been a significant delay in receiving CT readings from the radiologist secondary to difficulty with our PACS system and secondary to radiology overload. At the end of my shift, the CT scan of the patient's abdomen pelvis with IV contrast is pending. Patient's care was turned over to my colleague Dr. Kaela Gross's. Patient will remain in the emergency department until a disposition can be determined or until patient's symptoms improve over time and he can be discharged to home. Lab Data 07/29/23 12:17 07/29/23 12:17 Labs: Lab Results 07/29/23 07/29/23 07/29/23 Range/Units 12:17 16:55 16:57 WBC 8.5 (4.8-10.8) X10*3/uL RBC 4.33 L (4.60-5.80) X10*6/uL Hgb 13.9 L (14.0-18.0) g/dl Hct 42.6 (42.0-52.0) % MCV 98.4 H (80.0-98.0) fL MCH 32.1 (27.0-33.0) pg MCHC 32.6 (31.0-36.0) g/dl RDW 13.6 (11.0-16.0) % Plt Count 122 L (160-400) X10*3/uL MPV 11.3 (9.4-12.4) fL Immature Gran % (Auto) 0.2 (0.0-0.4) % Neut % (Auto) 67.0 (45-73) % Lymph % (Auto) 17.7 L (20-40) % Crane % (Auto) 10.5 (2-11) % Eos % (Auto) 4.1 H (0-4) % Baso % (Auto) 0.5 (0-2) % Lymph # (Auto) 1.5 (1.2-4.9) X10*3/uL Crane # (Auto) 0.9 (0.1-1.2) X10*3/uL Eos # (Auto) 0.4 (0.0-0.4) X10*3/uL Baso # (Auto) 0.0 (0.0-0.2) X10*3/uL Abs Immat Gran (auto) 0.02 (0.00-0.03) X10*3/uL Absolute Neuts (auto) 5.7 (2.0-8.3) x10*3/uL Absolute Nucleated RBC 0.000 (0.0-0.012) X10*3/uL Nucleated RBC % (auto) 0.0 (0.0-0.2) /100WBC VBG pH 7.28 L (7.32-7.43) VBG pCO2 77 mmHg VBG pO2 69 mmHg VBG HCO3 37 H (22-26) mmol/L VBG O2 Saturation 90.0 % VBG Base Excess 7.2 mmol/L Sodium 145 (135-145) mmol/L Potassium 4.4 (3.3-5.1) mmol/L Chloride 104 (96-108) mmol/L Carbon Dioxide 34 H (22-29) mmol/L Anion Gap 11 L (12-20) BUN 26 H (9-16) mg/dL Creatinine 1.11 (0.5-1.4) mg/dL Estim Creat Clear Calc 84.0 Estimated GFR > 60 Random Glucose 128 H (60-115) mg/dL Calcium 9.3 (8.4-10.2) mg/dL Total Bilirubin 0.7 (0.0-1.0) mg/dL AST 18 (5-37) U/L ALT 11 (0-40) U/L Alkaline Phosphatase 156 H (39-117) U/L Troponin I High Sens 5.3 (<3.5-35.0) ng/L B-Natriuretic Peptide 346 H (<100) pg/mL Total Protein 6.2 L (6.5-8.0) g/dL Albumin 3.5 (3.5-5.0) g/dL Urine Color Yellow Urine Appearance Clear Urine pH 6.0 (5.0-9.0) Ur Specific Alton 1.020 (1.005-1.025) Urine Protein Negative (Neg-Trace) mg/dL Urine Glucose (UA) Negative (Negative) mg/dL Urine Ketones Negative (Negative) mg/dL Urine Blood Small (1+) H (Negative) Urine Nitrite Negative (Negative) Ur Leukocyte Esterase Negative (Negative) Urine RBC 11-20 H (0-2) /HPF Urine WBC 0-5 (0-5) /HPF Ur Squamous Epith Cells 0-2 (0-2) /HPF Urine Bacteria None Seen (None Seen) Hyaline Casts 0-2 (0-2) /LPF Discharge Plan Discharge Clinical Impression: Acute left flank pain, Abdominal pain, acute, left lower quadrant, Obstructive sleep apnea Patient Disposition: Still a Patient Prescriptions: No Action meloxicam 15 mg tablet 15 mg PO DAILY Qty: 10 0RF cephalexin 500 mg capsule 500 mg PO Q8H Qty: 30 0RF oxycodone 5 mg Tablet 5 mg PO Q6H PRN (Reason: Pain, Severe (Pain Scale 7-10)) Qty: 20 0RF amlodipine 5 mg Tablet 5 mg PO DAILY alprazolam [Xanax] 0.25 mg tablet 0.25 mg PO TID PRN (Reason: Anxiety) clonidine 0.2 mg/24 hr Patch Weekly 1 patch TRANSDERMAL QWEEK citalopram 20 mg Tablet 20 mg PO DAILY gabapentin 300 mg Capsule 300 mg PO BID losartan 100 mg Tablet 100 mg PO DAILY oxybutynin chloride 15 mg Tablet Extended Release 24 Hr 15 mg PO DAILY buspirone 10 mg Tablet 10 mg PO BID propranolol [Inderal LA] 80 mg Capsule,Extended Release 24 Hr 80 mg PO BID furosemide [Lasix] 20 mg Tablet 20 mg PO DAILY finasteride 5 mg tablet 5 mg PO DAILY 90 Days Qty: 90 1RF tamsulosin 0.4 mg capsule 0.4 mg PO BEDTIME 90 Days Qty: 90 1RF Print Language: Persian
[2023-07-29] MEDS: ondansetron HCL 4 MG/2 ML VIAL IVPUSH (13:34)
[2023-07-29] MEDS: Ketorolac Tromethamine 15 MG/ML VIAL IVPUSH (13:34)
--- NOTE | 2023-07-29 13:37 | PC.NURSE ---
pt seen by ED provider. pt verbalizing increase in back/lower abd pain. medication administered per provider order. effectiveness pending.
[2023-07-29] MEDS: Furosemide 100 MG/10 ML VIAL 60 MG IVPUSH (14:20)
--- NOTE | 2023-07-29 15:15 | PC.RT ---
RT called to bedside by RN to assess pt. Pt not in notable respiratory distress, however his O2 SATs drop below 86% on RA, but improves to 94% w/ 4L NC. Pt readjusted and sitting upright for good airflow. Pt asked to take in a deep breath and he states it causes his back pain to get worse. Pt noted to have pitting edema bilaterally at the ankles and fine crackles noted in bases of lungs. Pt left on 4L NC and will titrate as tolerated. RT talked to MD and RN, reported findings and suggested diuretics.
[2023-07-29] MEDS: iohexoL 350 MG/ML 100 ML INFUS..BTL IV (15:17)
--- NOTE | 2023-07-29 15:21 | PC.NURSE ---
pt returned from CT at this time. pt remains a&ox4 but seemingly more somnolent. pt responds to some verbal stimuli but seems to respond more appropriately to physical/painful stimuli when sternal rub is performed. pt accompanied to CT by this RN - pt desaturated as low as 82% on 6L via NC while in supine position. pt now transitioned to hospital bed to promote more comfort. remaining on 4L via NC - resting at 89%. no sob/wob noted. pt positioned upright to promote patent airway. lips blue/purple in nature. provider notified/aware. plan of care ongoing.
--- NOTE | 2023-07-29 16:26 | PC.NURSE ---
pt transitioned from 4L via NC to bipap 01/21 40% back up rate of 12 via RT at this time.
--- NOTE | 2023-07-29 16:43 | PC.NURSE ---
16Fr temp sensing vigil catheter placed at this time. 400ml of dark yellow/cloudy urine noted immediately post output. UA obtained/sent to lab. labs obtained/sent to lab by [facility].
[2023-07-29 17:12] LABS: Appearance Urine Clear; Color Urine Yellow; Glucose Urine UA Negative (Negative); Leukocyte Esterase Urine Negative (Negative); Nitrite Urine Negative (Negative); UMIC TRIGGER UACC YES; Urine Blood Small (1+) (Negative); Urine Ketones Negative (Negative); Urine Protein Negative (Neg-Trace)
[2023-07-29 17:17] LABS: VBG Base Excess 7.2 mmol/L; VBG HCO3 37 mmol/L (22-26); VBG pCO2 77 mmHg; VBG pH 7.28 (7.32-7.43); VBG pO2 69 mmHg
[2023-07-29 17:17] LABS: Bacteria Urine None Seen (None Seen); Hyaline Casts Urine 0-2 /LPF (0-2); Squamous Epithelial Cell Urine 0-2 /HPF (0-2); WBC Urine 0-5 /HPF (0-5)
[2023-07-29 17:26] LABS: Venous Blood Gas Refer to POC result
[2023-07-29 23:04] LABS: Venous Blood Gas Refer to POC result
[2023-07-29 23:04] LABS: VBG Base Excess 8.3 mmol/L; VBG HCO3 38 mmol/L (22-26); VBG pCO2 76 mmHg; VBG pO2 56 mmHg
--- NOTE | 2023-07-29 23:15 | PC.NURSE ---
This RN was on the phone with , when explained the plan would be to send pt back to facility on Bipap if he tolerated well. Per pt does not use Bipap at the facility. This RN called facility and spoke with RN who agreed pt does not use CPAP at facility. Pt on cpap at this time O2 sat 93%. Pt lethargic but arousable.
--- NOTE | 2023-07-29 23:32 | MHC.EDTECH ---
This tech took over care of patient at 2300,hourly rounds and vitals completed,emptied Hernandez 150MLS of yellow urine, patient is resting st this time,call jung in reach
[2023-07-30] VITALS (30 sets, daily range): BP systolic 102–126; BP diastolic 43–68; PULSE 96–109; RESP 9–34; TEMP 36.4–37.3; O2SAT 89–98; BMI 41.7
--- NOTE | 2023-07-30 00:05 | PC.NURSE ---
Pt taken off cpap per orders. Pt sats dropped to 85% place on 3 L NC and sats improved 93%. aware.
--- NOTE | 2023-07-30 00:51 | MHC.EDTECH ---
Belongings list completed and copy placed in chart
--- OUTSIDE RECORDS SUMMARY | 2023-07-30 01:04 | XMS_ITS | Summary of Care ---
Author Organization [facility] Address [address] [place] [address]- Encounter 12/07/15 - 12/26/15 [facility] [address] [place] [address]- [phone] Discharge Diagnosis: Syncope and collapse Discharge Diagnosis: T5-T6 intravertebral space widening Discharge Diagnosis: EF 65% Discharge Diagnosis: Intracerebral haemorrhage (ICH) Discharge Diagnosis: HLD - Hyperlipidemia Discharge Diagnosis: HTN - Hypertension Discharge Diagnosis: Morbid obesity with BMI 36.46 and comorbidities HTN, HLD Discharge Diagnosis: Bipolar Discharge Diagnosis: Loss of consciousness Discharge Diagnosis: Encephalopathy Discharge Diagnosis: Anxiety Discharge Diagnosis: Fall Discharge Diagnosis: Right frontal mesial region with hemorrhagic focus Discharge Diagnosis: BPH - Benign prostatic hypertrophy Discharge Diagnosis: Fracture of thoracic vertebra - T6 hyperextension-type fx with osteophyte and superior endplate of T6 vertebral body Discharge Diagnosis: PTSD - Post-traumatic stress disorder Attending Physician: J Luis Joya MD Vital Signs Most recent to oldest [Reference Range]: 1 2 3 Temperature Oral F [96.4-99.1 DegF] 97.9 DegF (12/26/15 6:13 AM) 97.6 DegF (12/25/15 10:00 PM) 98.2 DegF (12/25/15 1:54 PM) Peripheral Pulse Rate [60-100 bpm] 65 bpm (12/26/15 6:13 AM) 85 bpm (12/25/15 10:00 PM) 90 bpm (12/25/15 1:54 PM) Respiratory Rate [14-20 br/min] 18 br/min (12/26/15 6:13 AM) 20 br/min (12/25/15 10:00 PM) 20 br/min (12/25/15 1:54 PM) Systolic Blood Pressure [90-140 mmHg] 125 mmHg (12/26/15 6:13 AM) 162 mmHg *HI* (12/25/15 10:00 PM) 112 mmHg (12/25/15 1:54 PM) Diastolic Blood Pressure [60-90 mmHg] 74 mmHg (12/26/15 6:13 AM) 90 mmHg (12/25/15 10:00 PM) 58 mmHg *LOW* (12/25/15 1:54 PM) Extremity used to obtain blood pressure Right Arm (12/24/15 8:00 PM) Left Arm (12/24/15 5:00 AM) Left Arm (12/23/15 9:00 PM) Cuff Size. Large (12/24/15 8:00 PM) Large (12/24/15 5:00 AM) Large (12/23/15 9:00 PM) Diastolic Blood Pressure with Activity 87 mmHg (12/25/15 1:00 PM) 81 mmHg (12/21/15 11:00 AM) 93 mmHg (12/19/15 9:30 AM) Peripheral Pulse Rate with Activity 119 bpm (12/21/15 11:00 AM) 105 bpm (12/19/15 9:30 AM) 99 bpm (12/15/15 8:00 AM) Systolic Blood Pressure with Activity 163 mmHg (12/25/15 1:00 PM) 137 mmHg (12/21/15 11:00 AM) 151 mmHg (12/19/15 9:30 AM) Vital Signs Additional Information See Summary section (12/18/15 10:00 AM) Pt reports dizziness post toileting task. (12/14/15 8:30 AM) Scroll down to see orthostatic results (12/08/15 1:00 PM) Vital Signs w/ Activity Additional Info After performing 21 stairs. (12/25/15 1:00 PM) Patient reports slight dizziness after ambulation. BP above. (12/19/15 9:30 AM) pt returned to bed (12/15/15 8:00 AM) Temperature Oral [36-37 DegC] 37 DegC (12/26/15 6:13 AM) 37 DegC (12/25/15 1:54 PM) 36 DegC (12/25/15 6:00 AM) Problem List Condition Effective Dates Status Health Status Inform ant Anxiety(Confirmed) Active Bipolar(Confirmed) Active BPH - Benign prostatic hypertrophy(Confirmed) Active EF 65%(Confirmed) 12/07/15 Active Encephalopathy(Confirmed) Active Fall(Confirmed) Active Fracture of thoracic vertebr a - T6 hyperextension-type fx with osteophyte and superior endplate of T6 vertebral body(Confirmed) 1 Active Gait abnormality(Confirmed) Active HLD - Hyperlipidemia(Confirmed) Active HTN - Hypertension(Confirmed) Active Impaired mobility(Confirmed) Active Intracerebral haemorrhage (ICH)(Confirmed) Active Loss of consciousness(Confirmed) Active Morbid obesity with BMI 36.4 6 and comorbidities HTN, HLD(Confirmed) 12/07/15 Active PTSD - Post-traumatic stress disorder(Confirmed) 12/07/15 Active Right frontal mesial region with hemorrhagic focus(Confirmed) Active Sleep apnea(Confirmed) Active Syncope and collapse(Confirmed) 12/07/15 Active T5-T6 intravertebral space widening(Confirmed) 12/07/15 Active 1T6 Allergies, Adverse Reactions, Alerts Substance Reaction Severity Status No Known Allergies Active Medications acetaminophen 325 mg oral tablet 650 mg, = 2 tab, Tab, Oral, q4hr PRN, Refills 0, Mild pain Start Date: 12/26/15 Status: Ordered ALPRAZolam 0.5 mg oral tablet 0.5 mg, = 1 tab, Tab, Oral, TID, 24 tab, Refills 0, AND xanax 0.25mg daily PRN breakthrough anxiety, Print Requisition, 0 Special Instructions: AND xanax 0.25mg daily PRN breakthrough anxiety Start Date: 12/26/15 Status: Ordered Artificial Tears preserved ophthalmic solution 1 drop, Soln-Opth, Eye-Both, TID Start Date: 12/07/15 Status: Ordered atenolol 25 mg oral tablet 12.5 mg, = 0.5 tab, Tab, Oral, QHS, Refills 0, Hold for SBP<100 or HR<60 Special Instructions: Hold for SBP<100 or HR<60 Start Date: 12/26/15 Status: Ordered citalopram 20 mg oral tablet 10 mg, = 0.5 tab, Tab, Oral, QHS Start Date: 12/07/15 Status: Ordered Detrol LA 2 mg oral capsule, extended release 4 mg, = 2 cap, Cap-ER, Oral, Daily, Refills 0 Start Date: 12/26/15 Status: Ordered docusate sodium 100 mg oral capsule 100 mg, = 1 cap, Cap, Oral, BID, Refills 0 Start Date: 12/26/15 Status: Ordered Lidoderm 5% topical film 1 patch, Film, TD, qAM, Refills 0 Start Date: 12/26/15 Status: Ordered melatonin 3 mg oral tablet 3 mg, = 1 tab, Tab, Oral, QHS, Refills 0 Start Date: 12/26/15 Status: Ordered MiraLax 17 gm, = 1 EA, Powder, Oral, Daily, Refills 0 Start Date: 12/26/15 Status: Ordered RisperDAL 0.5 mg oral tablet 0.5 mg, = 1 tab, Tab, Oral, QHS Start Date: 12/07/15 Status: Ordered senna 8.6 mg oral tablet 17.2 mg, = 2 tab, Tab, Oral, QHS, Refills 0 Start Date: 12/26/15 Status: Ordered terazosin 5 mg oral capsule 5 mg, = 1 cap, Cap, Oral, QHS, Refills 0 Start Date: 12/26/15 Status: Ordered traMADol 50 mg oral tablet 50 mg, = 1 tab, Tab, Oral, q6hr PRN, 24 tab, Refills 0, Pain, Print Requisition, 0 Start Date: 12/26/15 Status: Ordered Xanax 0.25 mg oral tablet 0.25 mg, = 1 tab, Tab, Oral, Daily PRN, Refills 0, Anxiety Start Date: 12/26/15 Status: Ordered Results LABORATORY Most recent to oldest [Reference Range]: 1 2 3 White Blood Cell Count - QST [3.8-10.8 x10(3)/mcL] 8.6 x10(3)/mcL *NA* (12/25/15 6:00 AM) 9.4 x10(3)/mcL *NA* (12/21/15 6:00 AM) 11.9 x10(3)/mcL *HI* (12/18/15 6:00 AM) Red Blood Cell Count - QST [4.20-5.80 x10(6)/mcL] 3.77 x10(6)/mcL *LOW* (12/25/15 6:00 AM) 3.73 x10(6)/mcL *LOW* (12/21/15 6:00 AM) 3.64 x10(6)/mcL *LOW* (12/18/15 6:00 AM) Hemoglobin - QST [13.2-17.1 g/dL] 12.5 g/dL *LOW* (12/25/15 6:00 AM) 12.8 g/dL *LOW* (12/21/15 6:00 AM) 12.2 g/dL *LOW* (12/18/15 6:00 AM) Hematocrit - QST [38.5-50.0 %] 35.0 % *LOW* (12/25/15 6:00 AM) 36.0 % *LOW* (12/21/15 6:00 AM) 34.3 % *LOW* (12/18/15 6:00 AM) MCV - QST [80.0-100.0 fL] 92.7 fL *NA* (12/25/15 6:00 AM) 96.7 fL *NA* (12/21/15 6:00 AM) 94.3 fL *NA* (12/18/15 6:00 AM) MCH - QST [27.0-33.0 pg] 33.1 pg *HI* (12/25/15 6:00 AM) 34.3 pg *HI* (12/21/15 6:00 AM) 33.5 pg *HI* (12/18/15 6:00 AM) MCHC - QST [32.0-36.0 g/dL] 35.7 g/dL *NA* (12/25/15 6:00 AM) 35.4 g/dL *NA* (12/21/15 6:00 AM) 35.6 g/dL *NA* (12/18/15 6:00 AM) RDW - QST [11.0-15.0 %] 12.7 % *NA* (12/25/15 6:00 AM) 12.9 % *NA* (12/21/15 6:00 AM) 12.4 % *NA* (12/18/15 6:00 AM) Platelet Count - QST [140-400 x10(3)/mcL] 200 x10(3)/mcL *NA* (12/25/15 6:00 AM) 215 x10(3)/mcL *NA* (12/21/15 6:00 AM) 190 x10(3)/mcL *NA* (12/18/15 6:00 AM) MPV - QST [7.5-11.5 fL] 9.4 fL *NA* (12/25/15 6:00 AM) 9.4 fL *NA* (12/21/15 6:00 AM) 9.3 fL *NA* (12/18/15 6:00 AM) Absolute Neutrophils - QST [0891-9105 cells/mcL] 5779 cells/mcL *NA* (12/25/15 6:00 AM) 6589 cells/mcL *NA* (12/21/15 6:00 AM) 8294 cells/mcL *HI* (12/18/15 6:00 AM) Absolute Lymphocytes - QST [850-3900 cells/mcL] 1918 cells/mcL *NA* (12/25/15 6:00 AM) 1833 cells/mcL *NA* (12/21/15 6:00 AM) 2440 cells/mcL *NA* (12/18/15 6:00 AM) Absolute Monocytes - QST [200-950 cells/mcL] 697 cells/mcL *NA* (12/25/15 6:00 AM) 808 cells/mcL *NA* (12/21/15 6:00 AM) 952 cells/mcL *HI* (12/18/15 6:00 AM) Absolute Eosinophils - QST [15-500 cells/mcL] 163 cells/mcL *NA* (12/25/15 6:00 AM) 150 cells/mcL *NA* (12/21/15 6:00 AM) 167 cells/mcL *NA* (12/18/15 6:00 AM) Absolute Basophils - QST [0-200 cells/mcL] 43 cells/mcL *NA* (12/25/15 6:00 AM) 19 cells/mcL *NA* (12/21/15 6:00 AM) 48 cells/mcL *NA* (12/18/15 6:00 AM) Neutrophils - QST 67.2 % *NA* (12/25/15 6:00 AM) 70.1 % *NA* (12/21/15 6:00 AM) 69.7 % *NA* (12/18/15 6:00 AM) Monocytes - QST 8.1 % *NA* (12/25/15 6:00 AM) 8.6 % *NA* (12/21/15 6:00 AM) 8.0 % *NA* (12/18/15 6:00 AM) Eosinophils - QST 1.9 % *NA* (12/25/15 6:00 AM) 1.6 % *NA* (12/21/15 6:00 AM) 1.4 % *NA* (12/18/15 6:00 AM) Basophils - QST 0.5 % 1 *NA* (12/25/15 6:00 AM) 0.2 % 2 *NA* (12/21/15 6:00 AM) 0.4 % 3 *NA* (12/18/15 6:00 AM) Lymphocytes - QST 22.3 % *NA* (12/25/15 6:00 AM) 19.5 % *NA* (12/21/15 6:00 AM) 20.5 % *NA* (12/18/15 6:00 AM) Glucose POC RALS [74-106 mg/dL] 135 mg/dL *HI* (12/21/15 12:11 PM) 107 mg/dL *HI* (12/08/15 5:21 AM) Color - QST [YELLOW] DARK YELLOW *NA* (12/08/15 11:15 AM) Appearance - QST [CLEAR] CLOUDY *ABN* (12/08/15 11:15 AM) Specific [place] - QST [1.001-1.035] 1.020 *NA* (12/08/15 11:15 AM) pH - QST [5.0-8.0] 6.0 *NA* (12/08/15 11:15 AM) Glucose, Urinalysis - QST [NEGATIVE] NEGATIVE *NA* (12/08/15 11:15 AM) Bilirubin, Urinalysis - QST [NEGATIVE] NEGATIVE *NA* (12/08/15 11:15 AM) Ketones - QST [NEGATIVE] NEGATIVE *NA* (12/08/15 11:15 AM) Occult Blood - QST [NEGATIVE] NEGATIVE *NA* (12/08/15 11:15 AM) Protein, Urinalysis - QST [NEGATIVE] NEGATIVE *NA* (12/08/15 11:15 AM) RBC - QST [< OR = 2] NONE SEEN *NA* (12/08/15 11:15 AM) Squamous Epithelial Cells - QST [< OR = 5] NONE SEEN *NA* (12/08/15 11:15 AM) Hyaline Cast - QST [NONE SEEN] 0-5 10 *ABN* (12/08/15 11:15 AM) WBC - QST [< OR = 5] 20-40 *ABN* (12/08/15 11:15 AM) Estimated Creatinine Clearance 75.02 mL/min (12/25/15 9:40 AM) 75.02 mL/min (12/22/15 2:02 PM) 75.06 mL/min (12/21/15 9:08 AM) Creatinine Level 1.05 mg/dL (12/25/15 6:00 AM) 1.05 mg/dL (12/21/15 6:00 AM) 0.88 mg/dL (12/18/15 6:00 AM) Sodium - QST [135-146 mmol/L] 139 mmol/L *NA* (12/25/15 6:00 AM) 140 mmol/L *NA* (12/21/15 6:00 AM) 140 mmol/L *NA* (12/18/15 6:00 AM) Potassium - QST [3.5-5.3 mmol/L] 4.3 mmol/L *NA* (12/25/15 6:00 AM) 4.1 mmol/L *NA* (12/21/15 6:00 AM) 4.0 mmol/L *NA* (12/18/15 6:00 AM) Chloride - QST [98-110 mmol/L] 105 mmol/L *NA* (12/25/15 6:00 AM) 105 mmol/L *NA* (12/21/15 6:00 AM) 105 mmol/L *NA* (12/18/15 6:00 AM) Carbon Dioxide - QST [20-31 mmol/L] 27 mmol/L *NA* (12/25/15 6:00 AM) 26 mmol/L *NA* (12/21/15 6:00 AM) 26 mmol/L *NA* (12/18/15 6:00 AM) Urea Nitrogen (BUN) - QST [7-25 mg/dL] 16 mg/dL *NA* (12/25/15 6:00 AM) 16 mg/dL *NA* (12/21/15 6:00 AM) 16 mg/dL *NA* (12/18/15 6:00 AM) BUN/Creatinine Ratio - QST [6-22] NOT APPLICABLE *NA* (12/25/15 6:00 AM) NOT APPLICABLE *NA* (12/21/15 6:00 AM) NOT APPLICABLE *NA* (12/18/15 6:00 AM) Creatinine - QST [0.70-1.18 mg/dL] 1.05 mg/dL 4 *NA* (12/25/15 6:00 AM) 1.05 mg/dL 5 *NA* (12/21/15 6:00 AM) 0.88 mg/dL 6 *NA* (12/18/15 6:00 AM) eGFR Non-Afr. Chinese - QST [> OR = 60 mL/min/1.73 m2] 71 mL/min/1.73 m2 *NA* (12/25/15 6:00 AM) 71 mL/min/1.73 m2 *NA* (12/21/15 6:00 AM) 86 mL/min/1.73 m2 *NA* (12/18/15 6:00 AM) eGFR - QST [> OR = 60 mL/min/1.73 m2] 82 mL/min/1.73 m2 *NA* (12/25/15 6:00 AM) 82 mL/min/1.73 m2 *NA* (12/21/15 6:00 AM) 100 mL/min/1.73 m2 *NA* (12/18/15 6:00 AM) Glucose - QST [65-99 mg/dL] 102 mg/dL 13 *HI* (12/25/15 6:00 AM) 105 mg/dL 14 *HI* (12/21/15 6:00 AM) 102 mg/dL 15 *HI* (12/18/15 6:00 AM) Calcium - QST [8.6-10.3 mg/dL] 9.2 mg/dL 7 *NA* (12/25/15 6:00 AM) 9.5 mg/dL 8 *NA* (12/21/15 6:00 AM) 9.3 mg/dL 9 *NA* (12/18/15 6:00 AM) Prealbumin - QST [21-43 mg/dL] 21 mg/dL 12 *NA* (12/08/15 6:00 AM) Albumin - QST [3.6-5.1 g/dL] 3.8 g/dL 11 *NA* (12/08/15 6:00 AM) 1Result Comment: Lab test performed by: Lab Mnemonic: [employer] [facility] [address] [place] [address] ALIRIO WARREN MD 2Result Comment: Lab test performed by: Lab Mnemonic: [employer] [facility] [address] [place] [address] ALIRIO WARREN MD 3Result Comment: Lab test performed by: Lab Mnemonic: [employer] [facility] [employer] [address] [place] [address] ALIRIO WARREN MD 4Result Comment: For patients >49 years of age, the reference limit for Creatinine is approximately 13% higher for people identified as -Chinese. 5Result Comment: For patients >49 years of age, the reference limit for Creatinine is approximately 13% higher for people identified as -Chinese. 6Result Comment: For patients >49 years of age, the reference limit for Creatinine is approximately 13% higher for people identified as -Chinese. 7Result Comment: Lab test performed by: Lab Mnemonic: [facility] [address] [place] [address] ALIRIO WARREN MD 8Result Comment: Lab test performed by: Lab Mnemonic: [employer] [facility] [employer] [address] [place] [address] ALIRIO WARREN MD 9Result Comment: Lab test performed by: Lab Mnemonic: [employer] [facility] [employer] [address] [place] [address] ALIRIO WRAREN MD 10Result Comment: Lab test performed by: Lab Mnemonic: [facility] [employer] [address] [address] TATA ALBARRAN MD 11Result Comment: Lab test performed by: Lab Mnemonic: [facility] [address] [place] [address] ALIRIO WARREN MD 12Result Comment: Lab test performed by: Lab Mnemonic: [employer] [address],[facility] [place] [address] TATA ALBARRAN MD 13Result Comment: Fasting reference interval 14Result Comment: Fasting reference interval 15Result Comment: Fasting reference interval Microbiology Reports TEST:Culture, Urine, Comprehensive - QST STATUS:Auth (Verified) BODY SITE: SOURCE:Urine COLLECTED DATE/TIME:12/08/15 11:15 AM FINAL REPORT See Comment CULTURE, URINE, ROUTINE MICRO NUMBER: [id number] TEST STATUS: FINAL SPECIMEN SOURCE: URINE SPECIMEN QUALITY: ADEQUATE RESULT: Multiple organisms present, each less than 10,000 CFU/mL. These organisms, commonly found on external and internal genitalia, are considered to be colonizers. No further testing performed. Lab test performed by: Lab Mnemonic: [employer] [employer] [address],[facility] [place] [address] TATA ALBARRAN MD Immunizations No data available for this section Procedures No data available for this section Social History No data available for this section Assessment and Plan No data available for this section
[2023-07-30 01:11] LABS: Lipase 24 U/L (8-78)
--- NOTE | 2023-07-30 02:11 | P.HPHOSP_ITS ---
History of Present Illness Date of Service: 07/30/23 Attending physician on admission: Ligia Spears Chief Complaint: Back pain Adiel Arciniega is a 77 years old man with past medical history significant for obstructive sleep apnea not using CPAP, decubitus ulcers, hypertrophic cardiomyopathy, anxiety, depression, obesity and CHF was brought to the emergency department via ambulance from [facility] for left lower back pain evaluation. HPI was obtained from patient's chart and ED provider as the patient was quite lethargic. It seems that he has been getting Tylenol for pain without significant relief. The patient also was complaining of left leg edema and swelling for the last month and was found to have an oxygen saturation 86% on room air. According to ED provider the patient came to the hospital for right groin pain and left lower quadrant pain patient has history of right groin pain for many years. It seems like yesterday the right groin pain came back and more intense. In the ED he was found to have low O2 sat of 86 % on room air and was placed on 4 L/min. He also received treatment with CPAP and BiPAP on and off while getting evaluated in the emergency department. He was also found to have mild degree of tachycardia and tachypnea. His last blood pressure is 116/68. Blood workup showed no leukocytosis. Hemoglobin starting 0.9 and platelets 122. There are no significant electrolyte imbalances. CO2 is 34, creatinine 1.11 and BUN 2. BNP is 346. LFTs are normal. Urinalysis showed microscopic hematuria. CXR showed stable enlargement of the cardiac silhouette, question left lung bronchial wall dizziness infiltrate and small left pleural effusion versus prominent epicardial fat. Abdominal pelvis CT scan showed question of some edema in the head of the pancreas but the exam is limited by motion artifact, incidental enlarged fatty liver, cholelithiasis, splenomegaly and marked BPH. It also a left mass which could be assessed or solid mass. ED tx: Ketorolac 15 mg IV, Lasix 60 mg IV, IV contrast and ondansetron 4 mg IV. Review of Systems 2 Review of Systems: Yes Unobtainable due to mental status [facility] Medical History (Updated 07/30/23 @ 04:30 by Ligia Spears MD) Back pain Decubital ulcer AGUEDA (obstructive sleep apnea) Bipolar disorder PTSD (post-traumatic stress disorder) Hypertrophic cardiomyopathy Urethral stricture Acute urinary retention Anxiety Depression HTN (hypertension) Social History Alcohol intake: never Smoked in Last 30 Days: No Use of substances other than those prescribed or required for medical reasons: No Advance Directives: Yes Advance Directives on File: Yes Advance Directives Date on File: 04/26/20 Do you have a plan to hurt others: No Plan service: Yes Current occupational status: retired and disabled Meds Allergies Allergy/AdvReac Type Severity Reaction Status Date / Time No Known Allergies Allergy Verified 07/29/23 11:50 Active Medications: Current Medications Acetaminophen (Acetaminophen 325 Mg Tablet) 975 mg PO Q6H PRN PRN Reason: Pain, Mild (Pain Scale 1-3) Heparin Sodium (Porcine) (Heparin Sodium,Porcine 5,000 Unit/Ml Vial) 5,000 unit SUBCUT Q8H SARANYA Sodium Chloride (0.9 % Sodium Chloride Flush 3 Ml Syringe) 3 ml IVFLUSH QSHIFT SARANYA Home Medications ?Medication ?Instructions ?Recorded ?Confirmed ?Last Taken ?Type alprazolam 0.25 mg tablet (Xanax) 0.25 mg PO TID PRN Anxiety 04/26/20 09/18/20 Unknown History amlodipine 5 mg tablet 5 mg PO DAILY 04/26/20 09/18/20 09/18/20 History citalopram 20 mg tablet 20 mg PO DAILY 04/26/20 09/18/20 09/18/20 History clonidine 0.2 mg/24 hr weekly 1 patch transdermal QWEEK 04/26/20 09/18/20 Unknown History transdermal patch gabapentin 300 mg capsule 300 mg PO BID 04/26/20 09/18/20 09/18/20 History losartan 100 mg tablet 100 mg PO DAILY 04/26/20 09/18/20 09/18/20 History buspirone 10 mg tablet 10 mg PO BID 07/06/20 09/18/20 09/18/20 History furosemide 20 mg tablet (Lasix) 20 mg PO DAILY 07/06/20 09/18/20 09/18/20 History oxybutynin chloride 15 mg 15 mg PO DAILY 07/06/20 09/18/20 09/18/20 History tablet,extended release 24 hr propranolol 80 mg capsule,24 80 mg PO BID 05/09/18/20 09/18/20 History hr,extended release (Inderal LA) Physical Exam 2 Vital Signs and Narrative: Vital Signs: Last Vital Signs Temp 97.4 F 07/29/23 23:30 Pulse 105 H 07/29/23 23:30 Resp 18 07/30/23 01:05 BP 124/53 L 07/29/23 23:30 Pulse Ox 95 07/29/23 23:30 O2 Del Method CPAP 07/29/23 23:30 O2 Flow Rate 30 07/29/23 23:30 BMI result Body Mass Index 41.7 Constitutional - Somnolent. Chronically ill. Obese. HEENT - Pupils equally round and reactive to light. Heart - Distant souds. Lungs - Normal lung expansion, poor respiratory effort, No respiratory distress, decreased breath sounds. No wheezing or crackles. Abdomen - Enlarge pannus. Extremities - Bilateral edema Musculoskeletal - Normal inspection, normal ROM Skin - Warm/Dry Neurological - Somnolent. Psychological - No agitation. Results Labs 07/30/23 04:46 07/30/23 04:46 Labs: Laboratory Results - last 24 hr 07/29/23 07/29/23 07/29/23 12:17 16:55 16:57 MCV 98.4 H MCH 32.1 MCHC 32.6 RDW 13.6 Plt Count 122 L MPV 11.3 Immature Gran % (Auto) 0.2 Neut % (Auto) 67.0 Lymph % (Auto) 17.7 L Bond % (Auto) 10.5 Eos % (Auto) 4.1 H Baso % (Auto) 0.5 Lymph # (Auto) 1.5 Bond # (Auto) 0.9 Eos # (Auto) 0.4 Baso # (Auto) 0.0 Abs Immat Gran (auto) 0.02 Absolute Neuts (auto) 5.7 Absolute Nucleated RBC 0.000 Nucleated RBC % (auto) 0.0 VBG pH 7.28 L VBG pCO2 77 VBG pO2 69 VBG HCO3 37 H VBG O2 Saturation 90.0 VBG Base Excess 7.2 Anion Gap 11 L Estim Creat Clear Calc 84.0 Estimated GFR > 60 Random Glucose 128 H Calcium 9.3 Total Bilirubin 0.7 AST 18 ALT 11 Alkaline Phosphatase 156 H Troponin I High Sens 5.3 B-Natriuretic Peptide 346 H Total Protein 6.2 L Albumin 3.5 Lipase 24 Urine Color Yellow Urine Appearance Clear Urine pH 6.0 Ur Specific [place] 1.020 Urine Protein Negative Urine Glucose (UA) Negative Urine Ketones Negative Urine Blood Small (1+) H Urine Nitrite Negative Ur Leukocyte Esterase Negative Urine RBC 11-20 H Urine WBC 0-5 Ur Squamous Epith Cells 0-2 Urine Bacteria None Seen Hyaline Casts 0-2 07/29/23 22:55 MCV MCH MCHC RDW Plt Count MPV Immature Gran % (Auto) Neut % (Auto) Lymph % (Auto) Bond % (Auto) Eos % (Auto) Baso % (Auto) Lymph # (Auto) Bond # (Auto) Eos # (Auto) Baso # (Auto) Abs Immat Gran (auto) Absolute Neuts (auto) Absolute Nucleated RBC Nucleated RBC % (auto) VBG pH 7.30 L VBG pCO2 76 VBG pO2 56 VBG HCO3 38 H VBG O2 Saturation 85.0 VBG Base Excess 8.3 Anion Gap Estim Creat Clear Calc Estimated GFR Random Glucose Calcium Total Bilirubin AST ALT Alkaline Phosphatase Troponin I High Sens B-Natriuretic Peptide Total Protein Albumin Lipase Urine Color Urine Appearance Urine pH Ur Specific [place] Urine Protein Urine Glucose (UA) Urine Ketones Urine Blood Urine Nitrite Ur Leukocyte Esterase Urine RBC Urine WBC Ur Squamous Epith Cells Urine Bacteria Hyaline Casts Imaging Radiologist's Impressions: Impressions Chest X-Ray 07/29/23 14:15 IMPRESSION: Stable enlargement of the cardiac silhouette. Question left lung bronchial wall thickening and infiltrate. [place] small left pleural effusion versus prominent epicardial fat. Abdomen/Pelvis CT 07/29/23 15:15 IMPRESSION: 1. There is a question of some mild edema in the head of the pancreas but the exam is limited by motion artifact. Please correlate with serum lipase. 2. A definitive cause for the patient's left lower quadrant pain has not been found. 3. Incidental note made of an enlarged fatty liver, cholelithiasis, splenomegaly and marked BPH. 4. There is a left renal mass which does not have the characteristics of a benign cyst. While this may represent a hyperattenuating Bosniak class II cyst, renal ultrasound is recommended to exclude a solid mass. Fleischner guidelines were followed. Assessment and Plan (1) Left kidney mass: Status: Acute (2) Acute encephalopathy: Status: Acute (3) Hypercapnic respiratory failure: Qualifiers: Chronicity: acute on chronic Qualified Code(s): J96.22 - Acute and chronic respiratory failure with hypercapnia Status: Acute Plan Adiel Arciniega is a 77 y/o man admitted with: * Acute encephalopathy secondary to hypercapnic and hypoxic respiratory failure secondary to untreated obstructive sleep apnea and obesity hypoventilatory syndrome. According to paperwork patient has been refusing CPAP. Keep NPO. Hold sedative. BiPAP trial provided, venous blood gas improved however, patient continues with worsening somnolence and hypoxia. Aspiration and fall precautions. Head CT scan was ordered but patient did not tolerate it. Discussed critical care team -Dr. Cordero. Patient has been accepted in the ICU for further management. * Left renal mass. Renal ultrasound to assess for cyst vs solid mass. * Sacral ulcer, POA. Wound consult. * Essential hypertension. Continue home medications. * Type 2 diabetes mellitus. Blood glucose monitoring every 6 hours while NPO. Insulin sliding scale. * HFrEF. EF 40% echo 03/2021. Continue Lasix. * Pericardial effusion. Check TTE. * Morbid obesity. BMI 41.7 kg/m2. Weight loss. * PTSD, bipolar disorder, anxiety and depression. Patient on multiple medication for this including olanzapine, sertraline, trazodone and Xanax. * History urinary retention due to BPH. Continue Flomax and finasteride when able. Insert indwelling urinary catheter for urinary retention as needed. * Neuropathy. Patient has been taking gabapentin but currently on hold due to acute encephalopathy. * Atrial fibrillation. Continue apixaban. * CKD stage 2. Creatinine is baseline. Avoid nephrotoxic agents. Home medication considered by pharmacy is still pending. DVT prophylaxis: Heparin Code status: Full (according to [facility] paperwork) Patient will need hospitalization for at least 2 midnights for acute encephalopathy and hypercapnic respiratory failure treatment with no invasive ventilation support. Quality Stroke Does the patient have a stroke diagnosis?: No VTE Prior VTE?: No VTE Risk Level:: Medical - moderate - high VTE Device Contraindication: N/A - Device Ordered VTE Drug Contraindication: N/A - Med Ordered
--- NOTE | 2023-07-30 02:53 | MHC.EDTECH ---
Hourly rounds and vitals completed,patient is resting, RT at bedside
[2023-07-30 04:50] LABS: Basophils Percent Auto 0.3 % (0-2); Hematocrit 46.8 % (42.0-52.0); Hemoglobin 15.2 g/dl (14.0-18.0); Imm Gran Abs Auto 0.05 X10*3/uL (0.00-0.03); Imm Gran Pct Auto 0.4 % (0.0-0.4); Lymphocytes Absolute Auto 0.7 X10*3/uL (1.2-4.9); Lymphocytes Percent Auto 6.4 % (20-40); MANUAL DIFF FLAG NO; Mean Corpuscular HGB Conc 32.5 g/dl (31.0-36.0); Mean Corpuscular Hemoglobin 32.4 pg (27.0-33.0); Mean Corpuscular Volume 99.8 fL (80.0-98.0); Mean Platelet Volume 11.1 fL (9.4-12.4); Monocytes Absolute Auto 0.7 X10*3/uL (0.1-1.2); Monocytes Percent Auto 5.9 % (2-11); Neutrophils Absolute Auto 10.1 x10*3/uL (2.0-8.3); Platelet Count 139 X10*3/uL (160-400); Red Blood Count 4.69 X10*6/uL (4.60-5.80); Red Cell Distribution Width 13.8 % (11.0-16.0); White Blood Count 11.7 X10*3/uL (4.8-10.8)
[2023-07-30 04:53] LABS: Venous Blood Gas Refer to POC result
[2023-07-30 04:56] LABS: VBG Base Excess 7.2 mmol/L; VBG HCO3 33 mmol/L (22-26); VBG pCO2 54 mmHg; VBG pH 7.39 (7.32-7.43); VBG pO2 62 mmHg
[2023-07-30 05:07] LABS: Alanine Aminotransferase 15 U/L (0-40); Albumin Level 3.9 g/dL (3.5-5.0); Alkaline Phosphatase 126 U/L (39-117); Anion Gap 14 (12-20); Aspartate Amino Transferase 21 U/L (5-37); Bilirubin Total 1.1 mg/dL (0.0-1.0); Blood Urea Nitrogen 31 mg/dL (9-16); Calcium 9.5 mg/dL (8.4-10.2); Carbon Dioxide 33 mmol/L (22-29); Chloride 103 mmol/L (96-108); Creatinine Clr Calc Pharmacy 72.8; Estimated Glomerular Filt Rate 54; Glucose Random 157 mg/dL (60-115); Potassium 5.6 mmol/L (3.3-5.1); Sodium 144 mmol/L (135-145); Total Protein 7.1 g/dL (6.5-8.0)
--- NOTE | 2023-07-30 05:46 | HO.SKINPHOTO ---
Location: Category: Stage: Length: Width: Depth: cm Location: Category: Stage: Length: Width: Depth: cm Location: Category: Stage: Length: Width: Depth: cm Location: Category: Stage: Length: Width: Depth: cm Location: Category: Stage: Length: Width: Depth: cm Location: Category: Stage: Length: Width: Depth: cm
--- NOTE | 2023-07-30 05:56 | MHC.EDTECH ---
Hourly rounds and vitals completed,rectal temp taken and is 98.6 patient had a small amount of brown soft stool,eitan-care given,patients bottom had open areas,RN was made aware. Patient was repositioned,and pillow placed on right side for comfort.
--- NOTE | 2023-07-30 05:58 | MHC.EDTECH ---
Emptied Hernandez 150MLS of dark yellow urine.
--- NOTE | 2023-07-30 06:17 | PC.NURSE ---
Pt due to go to the floor, taken off bipap and placed on cpap at 28%. Pt not tolerating well and O2 sat dropped 85%, RT at bedside and due to concern of pt retaining MD called and decision to put pt back on BIPAP. MD will consult x ray developing machine operator.
--- NOTE | 2023-07-30 07:00 | CA_ITS ---
Transthoracic Echocardiogram Patient (Last, First, Middle): Adiel Arciniega, Gender: Male Date of : 1945 Age: 77 Procedure Date: 07/30/2023 Procedure Type: Transthoracic Echocardiogram Location: ICU Height: 187.96 cm Weight: 147.42 kg BSA: 2.67 m2 Heart Rate: bpm BP: 120 / 63 mmHg Dealer Compliance Representative: Referring MD: Ligia Spears MD Symptoms: Pleural effusion. Study Quality: Technically Difficult due to body habitus ECG Rhythm: Undetermined Conclusions: - The left ventricular systolic function is hyperdynamic. The visually estimated ejection fraction is >70%. - There is severe septal asymmetric hypertrophy. - No obvious valvular pathology seen on this study. Findings Left Ventricle Normal left ventricular cavity size. The left ventricular systolic function is hyperdynamic. The visually estimated ejection fraction is >70%. Regional wall motion abnormalities can not be excluded due to suboptimal endocardial definition. Diastolic function is indeterminate on the basis of available data. There is severe septal asymmetric hypertrophy. (difficult to measure wall thickness due to poor endocardial definition). Right Ventricle Normal right ventricular cavity size and systolic function. Atria The left atrium is normal in size. The right atrium was not well visualized. Aortic Valve The aortic valve was not well visualized. There is no aortic valve stenosis. There is no aortic valve regurgitation. Mitral Valve There is mild mitral annular calcification. There is no mitral valve regurgitation. There is no mitral valve stenosis. Pulmonic Valve The pulmonic valve is likely normal. Tricuspid Valve There is trace tricuspid valve regurgitation. There is no evidence of pulmonary hypertension. Great Vessels The asc aorta is normal in size. Venous The inferior vena cava is dilated and does not collapse with inspiration. (On CPAP) Pericardium/Pleural There is no evidence of pericardial effusion. Prior Study Comparison No significant change compared to prior study dated: 11/11/2016. Recommendations, Care & Conclusions No obvious valvular pathology seen on this study. Measurements 2D Linear Measurements IVSd: 1.61 0.6-0.9/0.6-1.0 cm LVIDd: 4.63 3.9-5.3/4.2-5.9 cm LVIDd Index: 1.73 2.4-3.2/2.2-3.1 cm/m2 LVIDs: 3.40 2.0-3.6 cm LVPWd: 1.58 0.7-1.1 cm Ao Root: 4.10 2.1-3.5 cm LA Diam: 4.60 2.7-3.8/3.0-4.0 cm LAIDs Index: 1.72 1.5-2.3 cm/m2 LV Mass: 394.12 67-162/88-224 g LV Mass Index: 147.61 43-95/49-115 g/m2 LVOT Diam: 2.50 3.0+(-)1.3 cm 2D Systolic Function EF 4C: 78.70 >55% EF 2C: 71.80 >55% EF BiP: 75.50 >55% Mitral Valve MV Pk E: 1.00 MV Decel Time: 204.00 E'Lateral: 11.20 E'Medial: 8.59 E/E' Med: 11.60 E/E' Lat: 8.90 PHT: 60.00 MVA PHT: 3.67 Decel Cabell: 4.91 Aortic Valve AoV Pk Chapin: 0.99 AoV Mn Chapin: 0.66 AoV VTI: 0.20 AoV Pk Grad: 4.00 Aov Mn Grad: 2.00 COTY Cont.VTI: 3.73 LVOT LVOT Pk Chapin: 0.77 LVOT Mn Chapin: 0.54 LVOT VTI: 0.16 LVOT Pk Grad: 2.00 LVOT Mn Grad: 1.00 LVOT Diam: 2.50 LVOT Area: 4.91 Diastolic Function MV Pk E: 1.00 E'Medial: 8.59 E/E' Med: 11.60 E' Laterial: 11.20 E/E' Lat: 8.90 Right Ventricle TAPSE (mm): 18.00 Tricuspid Valve TR Pk Chapin: 2.55 TR Pk Grad: 26.00 RA Press: 3.00 RVSP: 29.00 Great Vessels Aorta Ao Root-2D: 4.10 2.0-3.7 cm Ao Asc: 3.70 2.1-3.4 cm Pulmonary Valve PV Pk Chapin: 0.84 Peak PV Grad: 3.00 Updated in Other Vendor System with Status of Final Peter Palacio MD electronically signed on 07/30/2023 11:56:34 AM with status of Final
--- NOTE | 2023-07-30 07:04 | PC.NURSE ---
patient is sitting upright in hospital bed, appears to be asleep, respirations equal and unlabored, currently on bipap. does not appear to be in distress. VSS
[2023-07-30] MEDS: Albuterol/Iprat 2.5/0.5MG 3 ML AMPUL.NEB INHALE ×4 (07:36→20:38)
[2023-07-30 08:17] LABS: Glucose, Whole Blood 150 mg/dL (60-115)
--- NOTE | 2023-07-30 08:22 | PHA.MEDREC ---
Pharmacy Consult ? Medication Reconciliation Pharmacy has completed the medication reconciliation. Patient came with med list from [facility] [address]
--- NOTE | 2023-07-30 08:45 | PM.EVENT ---
Event Note Date of Service: 07/30/23 Event Note: Patient is a 77 Y M with AGUEDA, non-compliant with CPAP, CHF, and known decubitus ulcers, presenting from nursing facility w/ reportedly chronic back, abdominal, and groin pain, found to be encephalopathic and hypoxic; ED work-up grossly unrevealing of etiology of back/abdominal/groin pain; chest x-ray w/ question LLL pneumonia; patient found to have respiratory acidosis, placed on BiPAP w/ improvement of encephalopathy; admitted medicine; however, patient became encephalopathic again, prompting BiPAP and ICU admission; on evaluation, patient appears fatigued, though arousable with minimal verbal stimulus; decreased breath sounds throughout; no appreciable murmurs, rubs, or gallops; no appreciable tenderness to palation abdomen throughout, no guarding, rebound; appreciable 1+ pitting edema to bilateral knees; plan to monitor on BiPAP, maintain NPO, treat empirically for pneumonia, and additional diuresis Time Spent With Patient Time: Total time managing care of this patient today ____ minutes.
[2023-07-30] MEDS: Furosemide 40 MG/4 ML VIAL IVPUSH (09:18)
[2023-07-30] MEDS: Heparin Sodium,Porcine 5,000 UNIT/ML VIAL 5000 UNIT SUBCUT ×2 (09:18→16:02)
[2023-07-30] MEDS: Piperacillin Sodium/Tazobactam 4.5 GM in 0.9 % Sodium Chloride 100 ML IV ×3 (09:19→20:50)
[2023-07-30 09:21] LABS: MANUAL DIFF FLAG NO
--- NOTE | 2023-07-30 09:25 | MHC.CM.PN ---
Attempted to meet with patient in regards to discharge planning. Patient currently on bi-pap. Attempted to speak with patient's /HCP, Carla, via telephone at [phone]. Left voicemail requesting return telephone call and explaining IMM would be sent via certified mail. CM assessment completed using medical record. Patient has been LTC resident of [facility] [address] since October 2020. Anticipate patient will return via BLS when medically stable. Copy of HCP verified to be on file. Continue to monitor for d/c needs.
[2023-07-30 09:27] LABS: Basophils Percent Auto 0.2 % (0-2); Eosinophils Percent Auto 0.1 % (0-4); Hematocrit 47.9 % (42.0-52.0); Hemoglobin 15.2 g/dl (14.0-18.0); Imm Gran Abs Auto 0.11 X10*3/uL (0.00-0.03); Imm Gran Pct Auto 0.9 % (0.0-0.4); Lymphocytes Absolute Auto 0.8 X10*3/uL (1.2-4.9); Lymphocytes Percent Auto 6.4 % (20-40); Mean Corpuscular HGB Conc 31.7 g/dl (31.0-36.0); Mean Corpuscular Hemoglobin 32.1 pg (27.0-33.0); Mean Corpuscular Volume 101.3 fL (80.0-98.0); Mean Platelet Volume 11.2 fL (9.4-12.4); Monocytes Absolute Auto 0.7 X10*3/uL (0.1-1.2); Monocytes Percent Auto 5.7 % (2-11); Neutrophils Absolute Auto 10.4 x10*3/uL (2.0-8.3); Neutrophils Percent Auto 86.7 % (45-73); Platelet Count 136 X10*3/uL (160-400); Red Blood Count 4.73 X10*6/uL (4.60-5.80); Red Cell Distribution Width 13.8 % (11.0-16.0)
[2023-07-30 09:37] LABS: Estimated Average Glucose 137 mg/dL; Hemoglobin A1c % 6.4 % (<6.0)
[2023-07-30 09:43] LABS: Alanine Aminotransferase 12 U/L (0-40); Albumin Level 3.8 g/dL (3.5-5.0); Alkaline Phosphatase 112 U/L (39-117); Anion Gap 18 (12-20); Aspartate Amino Transferase 23 U/L (5-37); Bilirubin Total 1.1 mg/dL (0.0-1.0); Blood Urea Nitrogen 33 mg/dL (9-16); Calcium 9.4 mg/dL (8.4-10.2); Carbon Dioxide 26 mmol/L (22-29); Chloride 105 mmol/L (96-108); Creatinine Clr Calc Pharmacy 83.2; Estimated Glomerular Filt Rate > 60; Glucose Random 155 mg/dL (60-115); Potassium 5.5 mmol/L (3.3-5.1); Sodium 143 mmol/L (135-145)
--- NOTE | 2023-07-30 09:44 | PC.NURSE ---
Addendum entered by Steve Alvarado RN 07/30/23 09:45: large wound (skin tear) noted to pt's abd fold, open area w/ small amt of bleeding Original Note: pt's took home pt's jewlery. updated pt's at bedside. Pt bathed and repo'ed upon arrival. Large wound area noted to buttocks. wound care order has been placed previously. informed of pt's K result.
[2023-07-30] MEDS: vancomycin/NS 2,000 MG/500 ML PLAST..BAG 250 MG IV (10:00)
[2023-07-30 12:46] LABS: Venous Blood Gas Refer to POC result
[2023-07-30 12:46] LABS: VBG Base Excess 8.5 mmol/L; VBG HCO3 36 mmol/L (22-26); VBG pCO2 63 mmHg; VBG pH 7.36 (7.32-7.43); VBG pO2 57 mmHg
--- NOTE | 2023-07-30 12:54 | PHA.PROG ---
Admission Date/Time: July 30, 2023 00:57 Indication: RESPIRATORY Weight in k.418 kg Adjusted body weight in Kg: Lawson body weight in Kg: Obesity Dosing Indication % IBW: Serum Creatinine - Last 168 Hours 07/29/23 07/30/23 07/30/23 12:17 04:46 09:14 Creatinine 1.11 1.28 1.12 Estimated CrCl and GFR - Last 168 Hours 07/29/23 07/30/23 07/30/23 12:17 04:46 09:14 Estim Creat Clear Calc 84.0 72.8 83.2 Estimated GFR > 60 54 > 60 Vancomycin Loading Dose: 2000 MG Current Vancomycin Dosing Regimen: 1000 MG Q12H Vancomycin Monitoring using AUC goal of 400 - 600 range with trough as surrogate marker: AUC = 573 TROUGH = 19.5 Date and Time for next Vancomycin Level to be drawn: 07/31/23 @1999 Pharmacist Comments on Vancomycin Plan: Vancomycin dosing will take advantage of [employer] as a clinical decision support tool that uses Bayesian modeling to calculate individual patient's pharmacokinetic parameters and forecast the patient's drug concentration time course with the target goal AUC 24 range of 400 - 600 mg/L/hr.
[2023-07-30 14:02] LABS: Glucose, Whole Blood 153 mg/dL (60-115)
--- NOTE | 2023-07-30 14:37 | PM.CNPUL ---
History of Present Illness History of Present Illness Consult date: 07/30/23 Chief complaint: hypercapnic respiratory failure Narrative: 77-year-old gentleman with underlying history of obesity, obstructive sleep apnea noncompliant with CPAP, hypertrophic cardiomyopathy, anxiety depression admitted on 07/30/2023 with low back pain, alteration of mental status, and acute hypercapnic respiratory failure requiring BiPAP support. Patient was started on empiric diuresis and after diuresis of 2 L patient with improving renal indices and blood gases, however with mild contraction alkalosis. 2D echo demonstrates dilated vena cava with no respiratory collapse. Patient still appears to be significantly confused. Review of Systems Review of Systems: Yes Unobtainable due to mental status Neurologic: Reports confusion Psychiatric: Psychiatric: Reports confusion [facility] Past Medical History Medical History (Updated 07/30/23 @ 14:41 by Marlo Fontaine MD) Back pain Decubital ulcer AGUEDA (obstructive sleep apnea) Bipolar disorder PTSD (post-traumatic stress disorder) Hypertrophic cardiomyopathy Urethral stricture Acute urinary retention Anxiety Depression HTN (hypertension) Social History Social History Alcohol intake: never Patient Tobacco Use Status: Tobacco use Unknown Advance Directives Date on File: 04/26/20 service: Yes Current occupational status: retired and disabled Meds Allergies Allergy/AdvReac Type Severity Reaction Status Date / Time No Known Allergies Allergy Verified 07/29/23 11:50 Active Medications: Current Medications Acetaminophen (Acetaminophen 325 Mg Tablet) 975 mg PO Q6H PRN PRN Reason: Pain, Mild (Pain Scale 1-3) Albuterol Sulfate (Albuterol Sulfate (0.083%) 2.5 Mg/3 Ml Vial.Neb) 2.5 mg INHALE Q4H PRN PRN Reason: Wheezing Albuterol/Ipratropium (Albuterol/Iprat 2.5/0.5mg 3 Ml Ampul.Neb) 3 ml INHALE RQ4H WHILE AWAKE SARANYA Last Admin: 07/30/23 11:25 Dose: 3 ml Furosemide (Furosemide 40 Mg/4 Ml Vial) 40 mg IVPUSH DAILY SARANYA; Protocol Glucose (Glucose Gel 15 Gm Gel..Gram.) 15 gm PO Q15M PRN; Protocol PRN Reason: per Hypoglycemia Standing Ord. Heparin Sodium (Porcine) (Heparin Sodium,Porcine 5,000 Unit/Ml Vial) 5,000 unit SUBCUT Q8H SARANYA Last Admin: 07/30/23 09:18 Dose: 5,000 unit Dextrose (D10) 250 mls @ 750 mls/hr IV Q15M PRN; Protocol PRN Reason: per Hypoglycemia Standing Ord. Piperacillin Sod/Tazobactam (Sod 4.5 gm/ Sodium Chloride) 100 mls @ 200 mls/hr IV Q6H [facility] Last Infusion: 07/30/23 10:02 Dose: Infused Vancomycin HCl 1,000 mg/ (Sodium Chloride) 270 mls @ 270 mls/hr IV Q12H SARANYA Insulin Human Lispro (Insulin Lispro 100 Unit/Ml 3 Ml Vial) 0 unit SUBCUT Q6H SARANYA; Protocol Pharmacy Consult (Consult Rx Vancomycin Dosing) 1 each MISCELLANE DAILY PRN PRN Reason: Consult order Sodium Chloride (0.9 % Sodium Chloride Flush 3 Ml Syringe) 3 ml IVFLUSH QSHIFT [facility] Last Admin: 07/30/23 08:24 Dose: Not Given Home Medications ?Medication ?Instructions ?Recorded ?Confirmed ?Last Taken ?Type amlodipine 5 mg tablet 5 mg PO DAILY 04/26/20 07/30/23 09/18/20 History gabapentin 300 mg capsule 300 mg PO DAILY 04/26/20 07/30/23 09/18/20 History buspirone 10 mg tablet 7.5 mg PO BID Anxiety 07/06/20 07/30/23 09/18/20 History furosemide 20 mg tablet (Lasix) 40 mg PO DAILY 07/06/20 07/30/23 09/18/20 History acetaminophen 325 mg tablet 650 mg PO Q4H PRN mild 07/30/23 07/30/23 Unknown History pain/temperature apixaban 5 mg tablet 5 mg PO BID 07/30/23 07/30/23 Unknown History atropine sulfate (PF) 1 % eye 1 drp ophthalmic (eye) BEDTIME 07/30/23 07/30/23 Unknown History drops in a dropperette carboxymethylcellulose sodium 1 % 2 drp ophthalmic (eye) Q4H PRN Dry 07/30/23 07/30/23 Unknown History eye drops Eye(S) gabapentin 600 mg tablet 600 mg PO BEDTIME 07/30/23 07/30/23 Unknown History ipratropium 0.5 mg-albuterol 3 mg 3 ml inhalation Q6H PRN Shortness 07/30/23 07/30/23 Unknown History (2.5 mg base)/3 mL nebulization Of Breath soln lidocaine 4 % topical cream 1 appl topical Q8H PRN to buttock 07/30/23 07/30/23 Unknown History magnesium oxide 400 mg PO BID 07/30/23 07/30/23 Unknown History metformin 500 mg tablet 500 mg PO DAILY 07/30/23 07/30/23 Unknown History methyl salicylate 15 %-menthol 10 1 appl topical Q8H PRN Pain 07/30/23 07/30/23 Unknown History % topical cream (Muscle Rub) metoprolol succinate 100 mg 150 mg PO DAILY 07/30/23 07/30/23 Unknown History tablet,extended release 24 hr olanzapine 2.5 mg tablet 2.5 mg PO BEDTIME 07/30/23 07/30/23 Unknown History sertraline 25 mg tablet 75 mg PO DAILY 07/30/23 07/30/23 Unknown History simethicone 80 mg chewable tablet 80 mg PO BID PRN gas 07/30/23 07/30/23 Unknown History tamsulosin 0.4 mg capsule 0.8 mg PO DAILY 07/30/23 07/30/23 Unknown History trazodone 50 mg tablet 25 mg PO BEDTIME 07/30/23 07/30/23 Unknown History zinc oxide 17 %-white petrolatum 1 appl topical TID 07/30/23 07/30/23 Unknown History 57 % topical paste Physical Exam Vital Signs: Vital Signs: Last Vital Signs Temp 98.8 F 07/30/23 12:00 Pulse 105 H 07/30/23 14:00 Resp 07/30/23 14:00 BP 109/48 L 07/30/23 14:00 Pulse Ox 91 L 07/30/23 14:00 O2 Del Method BiPAP 07/30/23 14:00 O2 Flow Rate 07/30/23 05:31 FiO2 07/30/23 14:00 BMI result Body Mass Index 41.7 Const: General: no acute distress, awake and confusion Nutritional Appearance: obese Orientation/consciousness: confusion Eyes: Sclerae: sclerae normal EOM: EOMs intact bilaterally Neck: Neck: Yes no lymphadenopathy, Yes trachea midline and Yes supple Resp: Effort & Inspection: normal respiratory effort and no respiratory distress Auscultation: clear to auscultation bilaterally Cardio: Rate: tachycardic Rhythm: regular rhythm Heart sounds: no gallops, no murmurs and no rubs GI: Palpation (GI): Soft to palpation and Other GI palpation findings present ( Nontender) Auscultation: normal bowel sounds Neuro: General: confusion Extrem: General: Yes no pedal edema ( 1+ bilateral), No clubbing and No cyanosis Results Laboratory Findings 07/30/23 09:14 07/30/23 09:14 Abnormal lab findings: Abnormal Labs 07/29/23 07/29/23 07/29/23 12:17 16:55 16:57 WBC RBC 4.33 L Hgb 13.9 L MCV 98.4 H Plt Count 122 L Immature Gran % (Auto) Neut % (Auto) Lymph % (Auto) 17.7 L Eos % (Auto) 4.1 H Lymph # (Auto) Abs Immat Gran (auto) Absolute Neuts (auto) VBG pH 7.28 L VBG HCO3 37 H Potassium Carbon Dioxide 34 H Anion Gap 11 L BUN 26 H POC Glucose Random Glucose 128 H Hemoglobin A1c % Total Bilirubin Alkaline Phosphatase 156 H B-Natriuretic Peptide 346 H Total Protein 6.2 L Urine Blood Small (1+) H Urine RBC 11-20 H 07/29/23 07/30/23 07/30/23 22:55 04:46 04:47 WBC 11.7 H RBC Hgb MCV 99.8 H Plt Count 139 L Immature Gran % (Auto) Neut % (Auto) 87.0 H Lymph % (Auto) 6.4 L Eos % (Auto) Lymph # (Auto) 0.7 L Abs Immat Gran (auto) 0.05 H Absolute Neuts (auto) 10.1 H VBG pH 7.30 L VBG HCO3 38 H 33 H Potassium 5.6 H D Carbon Dioxide 33 H Anion Gap BUN 31 H POC Glucose Random Glucose 157 H Hemoglobin A1c % Total Bilirubin 1.1 H Alkaline Phosphatase 126 H B-Natriuretic Peptide Total Protein Urine Blood Urine RBC 07/30/23 07/30/23 07/30/23 08:13 09:14 12:39 WBC 12.0 H RBC Hgb MCV 101.3 H Plt Count 136 L Immature Gran % (Auto) 0.9 H Neut % (Auto) 86.7 H Lymph % (Auto) 6.4 L Eos % (Auto) Lymph # (Auto) 0.8 L Abs Immat Gran (auto) 0.11 H Absolute Neuts (auto) 10.4 H VBG pH VBG HCO3 36 H Potassium 5.5 H Carbon Dioxide Anion Gap BUN 33 H POC Glucose 150 H Random Glucose 155 H Hemoglobin A1c % 6.4 H Total Bilirubin 1.1 H Alkaline Phosphatase B-Natriuretic Peptide Total Protein Urine Blood Urine RBC 07/30/23 13:57 WBC RBC Hgb MCV Plt Count Immature Gran % (Auto) Neut % (Auto) Lymph % (Auto) Eos % (Auto) Lymph # (Auto) Abs Immat Gran (auto) Absolute Neuts (auto) VBG pH VBG HCO3 Potassium Carbon Dioxide Anion Gap BUN POC Glucose 153 H Random Glucose Hemoglobin A1c % Total Bilirubin Alkaline Phosphatase B-Natriuretic Peptide Total Protein Urine Blood Urine RBC Assessment and Plan (1) Hypercapnic respiratory failure: Qualifiers: Chronicity: acute on chronic Qualified Code(s): J96.22 - Acute and chronic respiratory failure with hypercapnia Status: Acute (2) Obesity hypoventilation syndrome: Status: Acute (3) Obstructive sleep apnea: Status: Acute (4) CHF (congestive heart failure): Status: Acute Plan Impression: 77-year-old gentleman with underlying obesity, with saline compliant with CPAP, likely recent development of obesity hypoventilation syndrome admitted with acute hypercapnic respiratory failure and alteration of mental status initially requiring BiPAP support. On 2D echo vena covered with significantly dilated and noncollapsible but with rising serum bicarbonate and improving creatinine. Appears to be still with component of diastolic congestive heart failure. Recommendation: Would consider diuresis with acetazolamide to improve respiratory drive and renal bicarbonate excretion. Continue with nocturnal CPAP. Procedures Date of Service Date of Service: 07/30/23
[2023-07-30] MEDS: 0.9 % Sodium Chloride Flush 3 ML SYRINGE IVFLUSH (15:02)
--- NOTE | 2023-07-30 15:37 | HO.WOUND ---
Wound Consult: Initial 77yr old?Male admitted to [facility] [place] on 07/30/23 - See progress notes and H&P for detailed history.? Wound consult placed for Bilateral buttock wound POA.? Patient agreeable to assessment and photo documentation.? Bilateral Buttocks Etiology: ?MASD - IAD (Moisture Associated Skin Damage - Incontinence Associated Dermatitis) ?Present on Admission Measurements: Open wound to buttock measuring 2.5cm x 4cm s 0.2cm Wound Bed: purple red blanchable intact tissue - remains blanchable throughout - the open wound bed is secondary to friction and moisture - pink wound bed with moist pale yellow slough Drainage / Odor: serosang noted on bed linen when assessed Edges: ? irregular and mirrored Leanna wound: MASD epidermal peeling - ? No Induration, Fluctuance or Warmth noted Pain: difficult to assess as patient reported significant back pain Goals of Treatment: ? Triad to protect from moisture and friction and allow for moist wound healing. Abdominal Skin Folds Etiology: ??MASD - Intertrigo Wound Bed: partial thickness tissue loss at base of fold - clean - no fungal dermatitis noted Drainage / Odor: No odor - scant serosang noted Edges: ?Linear - base of pannus fold Leanna wound: ?Intact No Induration, Fluctuance or Warmth noted Pain: pain reported Goals of Treatment: ? Triad to protect from friction and allow for moist wound healing - interdry for moisture management Recommendations: 1. Turn and Reposition every 2 hours and as needed for patient comfort.? Use pillows or wedges to support off loading positions. 2. Off Load all bony prominences with use of pillows and heel boots if needed.? Apply Preventative foams where needed. ? 3. Monitor for incontinence and moisture control, use barrier creams when needed for prevention and treatment. 4. Provide adequate and supplemental nutrition.? 5. Continue low air loss mattress = specialty ICU bed. 6. When applicable maintain blood glucose levels per Providers order. 7. Abdominal skin fold - Cleanse with Ph blanced wipes allow to dry. Apply light layer of traid to wound bed. Tuck Interdry AG Sheet into skin fold to wick and translocate moisture away from skin fold.? Be sure to leave at least 2 inch of fabric exposed outside of skin fold.? Change when soiled. 8. Buttock - Off Load Pressure - Cleanse with PH balance spray or wipes, pat dry. ?Apply thin layer of Triad to wound bed - only pat and dab no scrub and rub when soiling occurs. Reapply thin layer PRN after each episode of incontinence. Re-consult wound care Nurse for wound deterioration or wound changes.
[2023-07-30] MEDS: Lidocaine 4 % Patch ADH..PATCH 2 PATCH TRANSDERMA (15:54)
[2023-07-30] MEDS: Acetaminophen 1,000 MG/100 ML PIGGYBACK 400 MG IV (15:55)
[2023-07-30] MEDS: acetaZOLAMIDE sodium 500 MG VIAL 250 MG IVPUSH (17:13)
[2023-07-30] MEDS: HYDROmorphone HCl 0.5 MG/0.5 ML SYRINGE IVPUSH (17:14)
[2023-07-30 17:58] LABS: Glucose, Whole Blood 142 mg/dL (60-115)
[2023-07-30 18:07] LABS: VBG Base Excess 5.9 mmol/L; VBG HCO3 26 mmol/L (22-26); VBG pCO2 27 mmHg; VBG pH 7.59 (7.32-7.43); VBG pO2 54 mmHg
[2023-07-30 20:24] LABS: Venous Blood Gas Refer to POC result
[2023-07-30] MEDS: vancomycin HCL 1,000 MG in 0.9 % Sodium Chloride 250 ML 270 MG IV (21:29)
[2023-07-30 23:52] LABS: Glucose, Whole Blood 125 mg/dL (60-115)
[2023-07-31] VITALS (33 sets, daily range): BP systolic 103–146; BP diastolic 47–67; PULSE 95–123; RESP 11–24; TEMP 36.8–37.7; O2SAT 89–98; BMI 42.5
[2023-07-31] MEDS: Heparin Sodium,Porcine 5,000 UNIT/ML VIAL 5000 UNIT SUBCUT ×3 (00:13→18:12)
[2023-07-31] MEDS: 0.9 % Sodium Chloride Flush 3 ML SYRINGE IVFLUSH ×4 (00:14→20:21)
[2023-07-31] MEDS: HYDROmorphone HCl 0.5 MG/0.5 ML SYRINGE IVPUSH ×2 (01:05→13:09)
[2023-07-31] MEDS: Piperacillin Sodium/Tazobactam 4.5 GM in 0.9 % Sodium Chloride 100 ML IV ×4 (03:15→20:20)
[2023-07-31 05:42] LABS: VBG Base Excess 7.1 mmol/L; VBG HCO3 35 mmol/L (22-26); VBG pCO2 66 mmHg; VBG pH 7.33 (7.32-7.43); VBG pO2 48 mmHg
[2023-07-31 05:44] LABS: Venous Blood Gas Refer to POC result
[2023-07-31 06:09] LABS: MANUAL DIFF FLAG NO
[2023-07-31 06:10] LABS: Glucose, Whole Blood 140 mg/dL (60-115)
[2023-07-31 06:11] LABS: Basophils Percent Auto 0.3 % (0-2); Eosinophils Percent Auto 0.2 % (0-4); Hematocrit 43.5 % (42.0-52.0); Hemoglobin 13.6 g/dl (14.0-18.0); Imm Gran Abs Auto 0.05 X10*3/uL (0.00-0.03); Imm Gran Pct Auto 0.4 % (0.0-0.4); Lymphocytes Absolute Auto 1.1 X10*3/uL (1.2-4.9); Lymphocytes Percent Auto 9.6 % (20-40); Mean Corpuscular HGB Conc 31.3 g/dl (31.0-36.0); Mean Corpuscular Hemoglobin 31.9 pg (27.0-33.0); Mean Corpuscular Volume 102.1 fL (80.0-98.0); Mean Platelet Volume 11.4 fL (9.4-12.4); Monocytes Absolute Auto 1.1 X10*3/uL (0.1-1.2); Monocytes Percent Auto 9.4 % (2-11); Neutrophils Absolute Auto 9.2 x10*3/uL (2.0-8.3); Neutrophils Percent Auto 80.1 % (45-73); Platelet Count 128 X10*3/uL (160-400); Red Blood Count 4.26 X10*6/uL (4.60-5.80); White Blood Count 11.4 X10*3/uL (4.8-10.8)
[2023-07-31 06:31] LABS: Anion Gap 12 (12-20); Blood Urea Nitrogen 35 mg/dL (9-16); Calcium 9.2 mg/dL (8.4-10.2); Carbon Dioxide 35 mmol/L (22-29); Chloride 104 mmol/L (96-108); Creatinine Clr Calc Pharmacy 71.8; Estimated Glomerular Filt Rate 53; Glucose Random 141 mg/dL (60-115); Potassium 4.5 mmol/L (3.3-5.1); Sodium 146 mmol/L (135-145)
--- NOTE | 2023-07-31 08:08 | PM.CCPN ---
Subjective Subjective Date of Service: 07/31/23 Interval History: no significant overnight events Critical Care Time (minutes): 90 Physical Exam Vital Signs: Vital Signs: Last Vital Signs Temp 98.4 F 07/31/23 07:00 Pulse 98 07/31/23 07:00 Resp 20 07/31/23 07:00 BP 122/57 L 07/31/23 07:00 Pulse Ox 94 07/31/23 07:00 O2 Del Method BiPAP 07/31/23 07:00 O2 Flow Rate 2 07/30/23 20:00 FiO2 28 07/31/23 07:00 BMI result Body Mass Index 42.5 Const: Other: appears more alert than prior; intermittently answers yes-no questions; unable to participate in higher-level thinking conversation General: comfortable, no acute distress, well developed, alert, awake and Physically active Orientation/consciousness: oriented to person HEENT: Head: Yes normal to inspection, Yes normocephalic and Yes atraumatic Eyes: General: appearance normal, both eyes and all related structures Neck: Neck: Yes normal visual inspection, Yes full ROM, Yes no meningeal signs, Yes trachea midline and Yes supple Chest: Chest palpation & inspection: normal inspection of the chest Resp: Other: no appreciable rales, rhonchi, wheezing Effort & Inspection: normal respiratory effort Cardio: Rate: regular rate Rhythm: regular rhythm GI: Inspection: Yes normal to inspection, No Abdominal wall edema and No distended Palpation (GI): Soft to palpation, not firm, nontender, no guarding and not rigid : Male General Exam: Yes normal external exam Skin: General skin exam: no rashes or lesions noted Neuro: General: oriented to person, tone normal, moves all extremities, no meningeal signs and no focal motor deficits Extrem: Other: appreciable 2+ pitting edema to bilateral knees General: Yes full ROM and Yes capillary refill normal Psych: Appearance: grossly normal Objective Data Labs 07/31/23 05:36 07/31/23 05:36 Labs: Laboratory Results - last 24 hr 07/30/23 07/30/23 07/30/23 08:13 09:14 12:39 WBC 12.0 H RBC 4.73 Hgb 15.2 Hct 47.9 MCV 101.3 H MCH 32.1 MCHC 31.7 RDW 13.8 Plt Count 136 L MPV 11.2 Immature Gran % (Auto) 0.9 H Neut % (Auto) 86.7 H Lymph % (Auto) 6.4 L Overton % (Auto) 5.7 Eos % (Auto) 0.1 Baso % (Auto) 0.2 Lymph # (Auto) 0.8 L Overton # (Auto) 0.7 Eos # (Auto) 0.0 Baso # (Auto) 0.0 Abs Immat Gran (auto) 0.11 H Absolute Neuts (auto) 10.4 H Absolute Nucleated RBC 0.000 Nucleated RBC % (auto) 0.0 VBG pH 7.36 VBG pCO2 63 VBG pO2 57 VBG HCO3 36 H VBG O2 Saturation 88.0 VBG Base Excess 8.5 Sodium 143 Potassium 5.5 H Chloride 105 Carbon Dioxide 26 Anion Gap 18 BUN 33 H Creatinine 1.12 Estim Creat Clear Calc 83.2 Estimated GFR > 60 POC Glucose 150 H Random Glucose 155 H Estimat Average Glucose 137 Hemoglobin A1c % 6.4 H Calcium 9.4 Total Bilirubin 1.1 H AST 23 ALT 12 Alkaline Phosphatase 112 Total Protein 7.0 Albumin 3.8 07/30/23 07/30/23 07/30/23 13:57 17:51 17:59 WBC RBC Hgb Hct MCV MCH MCHC RDW Plt Count MPV Immature Gran % (Auto) Neut % (Auto) Lymph % (Auto) Overton % (Auto) Eos % (Auto) Baso % (Auto) Lymph # (Auto) Overton # (Auto) Eos # (Auto) Baso # (Auto) Abs Immat Gran (auto) Absolute Neuts (auto) Absolute Nucleated RBC Nucleated RBC % (auto) VBG pH 7.59 H VBG pCO2 27 VBG pO2 54 VBG HCO3 26 VBG O2 Saturation 93.0 VBG Base Excess 5.9 Sodium Potassium Chloride Carbon Dioxide Anion Gap BUN Creatinine Estim Creat Clear Calc Estimated GFR POC Glucose 153 H 142 H Random Glucose Estimat Average Glucose Hemoglobin A1c % Calcium Total Bilirubin AST ALT Alkaline Phosphatase Total Protein Albumin 07/30/23 07/31/23 07/31/23 23:46 05:33 05:36 WBC 11.4 H RBC 4.26 L Hgb 13.6 L Hct 43.5 MCV 102.1 H MCH 31.9 MCHC 31.3 RDW 14.0 Plt Count 128 L MPV 11.4 Immature Gran % (Auto) 0.4 Neut % (Auto) 80.1 H Lymph % (Auto) 9.6 L Overton % (Auto) 9.4 Eos % (Auto) 0.2 Baso % (Auto) 0.3 Lymph # (Auto) 1.1 L Overton # (Auto) 1.1 Eos # (Auto) 0.0 Baso # (Auto) 0.0 Abs Immat Gran (auto) 0.05 H Absolute Neuts (auto) 9.2 H Absolute Nucleated RBC 0.000 Nucleated RBC % (auto) 0.0 VBG pH 7.33 VBG pCO2 66 VBG pO2 48 VBG HCO3 35 H VBG O2 Saturation 79.0 VBG Base Excess 7.1 Sodium 146 H Potassium 4.5 Chloride 104 Carbon Dioxide 35 H Anion Gap 12 BUN 35 H Creatinine 1.31 Estim Creat Clear Calc 71.8 Estimated GFR 53 POC Glucose 125 H Random Glucose 141 H Estimat Average Glucose Hemoglobin A1c % Calcium 9.2 Total Bilirubin AST ALT Alkaline Phosphatase Total Protein Albumin 07/31/23 06:07 WBC RBC Hgb Hct MCV MCH MCHC RDW Plt Count MPV Immature Gran % (Auto) Neut % (Auto) Lymph % (Auto) Overton % (Auto) Eos % (Auto) Baso % (Auto) Lymph # (Auto) Overton # (Auto) Eos # (Auto) Baso # (Auto) Abs Immat Gran (auto) Absolute Neuts (auto) Absolute Nucleated RBC Nucleated RBC % (auto) VBG pH VBG pCO2 VBG pO2 VBG HCO3 VBG O2 Saturation VBG Base Excess Sodium Potassium Chloride Carbon Dioxide Anion Gap BUN Creatinine Estim Creat Clear Calc Estimated GFR POC Glucose 140 H Random Glucose Estimat Average Glucose Hemoglobin A1c % Calcium Total Bilirubin AST ALT Alkaline Phosphatase Total Protein Albumin Progress Note: A&P Assessment and plan (1) Acute respiratory failure with hypoxia and hypercarbia: Status: Acute (2) Acute encephalopathy: Status: Acute (3) CHF (congestive heart failure): Status: Acute (4) Obesity hypoventilation syndrome: Status: Acute Plan Patient is a 77 Y M with AGUEDA, non-compliant with CPAP, CHF, and known decubitus ulcers, presenting from nursing facility w/ reportedly chronic back, abdominal, and groin pain, found to be encephalopathic, hypoxic, and hypercarbic, placed on BiPAP with some initial improvement, though necessitating continued BiPAP N: encephalopathy, likely toxic-metabolic, to continue to monitor CV: no acute issues; atrial fibrillation, to resume home apixaban when PO R: acute mixed respiratory failure, likely d/t pneumonia, on BiPAP, wean as tolerated; AGUEDA, non-compliant with CPAP GI: NPO; no clear etiology of presenting abdominal/groin pain : appears volume overloaded; diuresis as tolerated H: no acute issues; chemical DVT prophylaxis ID: cf pneumonia; given nursing facility, on vancomycin, zosyn E: to monitor for hypo-/hyper-glycemia S: daily updates given to healthcare proxy and , tea Nix Stroke Does the patient have a stroke diagnosis?: No VTE Prior VTE?: No VTE Risk Level:: Medical - moderate - high VTE Device Contraindication: N/A - Device Ordered VTE Drug Contraindication: N/A - Med Ordered
[2023-07-31] MEDS: acetaZOLAMIDE sodium 500 MG VIAL 250 MG IVPUSH (08:14)
[2023-07-31] MEDS: Furosemide 40 MG/4 ML VIAL IVPUSH (08:15)
[2023-07-31] MEDS: Albuterol/Iprat 2.5/0.5MG 3 ML AMPUL.NEB INHALE ×4 (08:18→21:06)
--- NOTE | 2023-07-31 08:43 | P.CDIM_ITS ---
PROVIDER RESPONSE TEXT: To clarify, the appropriate diagnosis supported by the clinical indicators: Toxic metabolic QUERY TEXT: PHYSICIAN'S DOCUMENTATION REQUEST Date of Query: 07/31/2023 08:04 AM EDT Patient Name: KATHIE TAPIA Admit Date: 07/30/2023 Dear Alena Cordero MD, A review of the medical record indicates additional documentation may be needed. Please review below and update the documentation accordingly. Clinical Indicators: Presenting from [place] w reportedly chronic back, abdominal, groin pain, found to be encephalopathic. Acute encephalopathy secondary to hypercapnic and hypoxic respiratory failure. Based on the above, please further specify, in the Progress Notes, the known or suspected type of the documented encephalopathy if known: Metabolic Toxic Toxic metabolic Hypertensive Anoxic Other (explain) Clinically unable to determine (explain) Thank you, Nona Borden, CCS, CDIS Use of terms such as suspected, likely, concern for, or probable (associated with a specific diagnosi s that is being evaluated, monitored, or treated as if it exists) are acceptable and can be coded in the inpatient se tting, when documented at the time of discharge. Please use your independent medical judgment in providing your response. THIS QUERY IS PART OF THE PERMANENT MEDICAL RECORD
--- NOTE | 2023-07-31 09:13 | MHC.CM.PN ---
Pt continues on Bipap for respiratory support. Plans are to wean and eventually transfer to the medical floor. Pt is a LTC resident of [facility] and will return when medically stable. CM to follow
--- NOTE | 2023-07-31 09:30 | P.CDIM_ITS ---
PROVIDER RESPONSE TEXT: To clarify, the appropriate diagnosis supported by the clinical indicators: Acute QUERY TEXT: PHYSICIAN'S DOCUMENTATION REQUEST Date of Query: 07/31/2023 09:19 AM EDT Patient Name: KATHIE TAPIA Admit Date: 07/30/2023 Dear Alena Cordero MD, A review of the medical record indicates additional documentation may be needed. Please review below and update the documentation accordingly. Clinical Indicators: H&P 6/12 - Respiratory acidosis placed on BIPAP. Clarify which of the following accurately represents the acuity of the respiratory acidosis: Possible options might include: Acute Acute on chronic Chronic Other (explain) Clinically unable to determine (explain) Thank you, Nona Borden, CCS, CDIS Use of terms such as suspected, likely, concern for, or probable (associated with a specific diagnosi s that is being evaluated, monitored, or treated as if it exists) are acceptable and can be coded in the inpatient se tting, when documented at the time of discharge. Please use your independent medical judgment in providing your response. THIS QUERY IS PART OF THE PERMANENT MEDICAL RECORD
[2023-07-31] MEDS: Lidocaine 4 % Patch ADH..PATCH 2 PATCH TRANSDERMA (09:54)
[2023-07-31] MEDS: vancomycin HCL 1,000 MG in 0.9 % Sodium Chloride 250 ML 270 MG IV ×2 (09:54→20:30)
[2023-07-31 12:08] LABS: Glucose, Whole Blood 138 mg/dL (60-115)
[2023-07-31] MEDS: Metoprolol Tartrate 5 MG/5 ML VIAL 10 MG IVPUSH ×2 (13:20→20:21)
--- NOTE | 2023-07-31 15:09 | P.PNPL_ITS ---
Subjective Subjective Date of Service: 07/31/23 Interval history: off continuous BiPAP. Objective Data Labs 07/31/23 05:36 07/31/23 05:36 Labs: Laboratory Results - last 24 hr 07/30/23 07/30/23 07/30/23 17:51 17:59 23:46 WBC RBC Hgb Hct MCV MCH MCHC RDW Plt Count MPV Immature Gran % (Auto) Neut % (Auto) Lymph % (Auto) [place] % (Auto) Eos % (Auto) Baso % (Auto) Lymph # (Auto) [place] # (Auto) Eos # (Auto) Baso # (Auto) Abs Immat Gran (auto) Absolute Neuts (auto) Absolute Nucleated RBC Nucleated RBC % (auto) VBG pH 7.59 H VBG pCO2 27 VBG pO2 54 VBG HCO3 26 VBG O2 Saturation 93.0 VBG Base Excess 5.9 Sodium Potassium Chloride Carbon Dioxide Anion Gap BUN Creatinine Estim Creat Clear Calc Estimated GFR POC Glucose 142 H 125 H Random Glucose Calcium 07/31/23 07/31/23 07/31/23 05:33 05:36 06:07 WBC 11.4 H RBC 4.26 L Hgb 13.6 L Hct 43.5 MCV 102.1 H MCH 31.9 MCHC 31.3 RDW 14.0 Plt Count 128 L MPV 11.4 Immature Gran % (Auto) 0.4 Neut % (Auto) 80.1 H Lymph % (Auto) 9.6 L [place] % (Auto) 9.4 Eos % (Auto) 0.2 Baso % (Auto) 0.3 Lymph # (Auto) 1.1 L [place] # (Auto) 1.1 Eos # (Auto) 0.0 Baso # (Auto) 0.0 Abs Immat Gran (auto) 0.05 H Absolute Neuts (auto) 9.2 H Absolute Nucleated RBC 0.000 Nucleated RBC % (auto) 0.0 VBG pH 7.33 VBG pCO2 66 VBG pO2 48 VBG HCO3 35 H VBG O2 Saturation 79.0 VBG Base Excess 7.1 Sodium 146 H Potassium 4.5 Chloride 104 Carbon Dioxide 35 H Anion Gap 12 BUN 35 H Creatinine 1.31 Estim Creat Clear Calc 71.8 Estimated GFR 53 POC Glucose 140 H Random Glucose 141 H Calcium 9.2 07/31/23 11:57 WBC RBC Hgb Hct MCV MCH MCHC RDW Plt Count MPV Immature Gran % (Auto) Neut % (Auto) Lymph % (Auto) [place] % (Auto) Eos % (Auto) Baso % (Auto) Lymph # (Auto) [place] # (Auto) Eos # (Auto) Baso # (Auto) Abs Immat Gran (auto) Absolute Neuts (auto) Absolute Nucleated RBC Nucleated RBC % (auto) VBG pH VBG pCO2 VBG pO2 VBG HCO3 VBG O2 Saturation VBG Base Excess Sodium Potassium Chloride Carbon Dioxide Anion Gap BUN Creatinine Estim Creat Clear Calc Estimated GFR POC Glucose 138 H Random Glucose Calcium Physical Exam 2 Vital Signs: Vital Signs: Last Vital Signs Temp 99.3 F 07/31/23 14:00 Pulse 101 H 07/31/23 14:00 Resp 18 07/31/23 14:00 BP 111/48 L 07/31/23 14:00 Pulse Ox 93 07/31/23 14:00 O2 Del Method Nasal Cannula 07/31/23 14:00 O2 Flow Rate 2 07/31/23 14:00 FiO2 28 07/31/23 09:00 BMI result Body Mass Index 42.5 Const: General: no acute distress and awake Eyes: Sclerae: sclerae normal EOM: EOMs intact bilaterally Neck: Neck: Yes no lymphadenopathy, Yes trachea midline and Yes supple Resp: Effort & Inspection: normal respiratory effort and no respiratory distress Auscultation: clear to auscultation bilaterally Cardio: Rate: tachycardic Rhythm: regular rhythm Heart sounds: no gallops, no murmurs and no rubs GI: Palpation (GI): Soft to palpation and Other GI palpation findings present ( Nontender) Auscultation: normal bowel sounds Extrem: General: Yes no pedal edema, No clubbing and No cyanosis Procedures Date of Service Date of Service: 07/31/23 Assessment and Plan Assessment and plan (1) Acute respiratory failure with hypoxia and hypercarbia: Status: Acute (2) Obesity hypoventilation syndrome: Status: Acute Plan Impression: 77-year-old gentleman with underlying obesity, with saline compliant with CPAP, likely recent development of obesity hypoventilation syndrome admitted with acute hypercapnic respiratory failure and alteration of mental status initially requiring BiPAP support. On 2D echo vena covered with significantly dilated and noncollapsible but with rising serum bicarbonate and improving creatinine. Appears to be still with component of diastolic congestive heart failure. Now titrated off continuous BiPAP. Recommendation: Would Continue the same course including b.i.d. acetazolamide and nocturnal CPAP. Time Spent With Patient Time: Total time managing care of this patient today ____ minutes. Progress Note: Quality Stroke Does the patient have a stroke diagnosis?: No
--- NOTE | 2023-07-31 17:59 | MHC.SL.SWA ---
Speech Pathologist Impression: Risk of Aspiration Due to: Medically Fragile Dysphasia Diet Status: Liquid Consistency and Strategies for Safe Swallow: Liquid Intake Recommendation: [place] Thick Liquid Intake Strategies: Liquids by Teaspoon Only Solid Food Consistency: Dietary Recommendations: Pureed (NDD1) Additional Modifications to Solid Foods: Patient requires one to one feeding, liquids by tsp only. Add sauces and gravies to purees, blend well. Oral Medication Intake: Crushed with Puree Please contact the pharmacy regarding appropriate crushable or liquid drug formulations that are available whenever modified delivery is recommended. Compensatory Strategies and Precautions to be Taken for Safe Swallow: Sitting Upright (90 deg) Liquids from Spoon Small Bites and Sips Alternate Liquids/Solids Avoid Specific Foods Supervision While Eating and Drinking for Safe Swallow: Total Assistance (1:1) Foods to Avoid: mixed consistencies, sticky/congealed purees. Swallowing Recommended Treatments: Compens. Strategy Educat. Recommendation for Speech: Inpatient Speech Therapy Comment: Patient presents with generalized weakness, confusion, minimal communication. Patient was responsive to being fed by spoon, evidenced confusion when presented with cup sip or hand over hand to assist with self feed. Patient tolerated [place] Thick liquids by spoon, evidenced clinical signs of aspiration on thin liquids. Patient tolerated puree consistencies, did not intiate mastication when given a more solid consistency. Recommend start diet of PUREE (NDD1) with NECTAR THICK LIQUIDS (by tsp only) pills crushed in puree. Patient requires 1-1 feed. Do not attempt if patient is lethargic, use strict aspiration precautions. , RN notified of recommendations in person, ENT PHYSICIAN will continue to follow. Frequency/Duration: Date Range for Service Req: Timeline to reassess: Computer Repair Engineer Clinican/Clinical Fellow: No Supervisory Statement: I have reviewed and agree with the student/clinical fellow's documentation: N/A Speech Language Pathologist: Destinee Ross M.A., CCC-ENT PHYSICIAN
[2023-07-31] MEDS: Furosemide 40 MG/4 ML VIAL 20 MG IVPUSH (18:12)
[2023-07-31 18:14] LABS: Glucose, Whole Blood 124 mg/dL (60-115)
[2023-07-31 20:27] LABS: Vancomycin Random 17.8 mcg/mL (15-20)
[2023-08-01] VITALS (39 sets, daily range): BP systolic 106–158; BP diastolic 52–92; PULSE 90–120; RESP 10–28; TEMP 36.9–38.2; O2SAT 90–98; BMI 42.0
--- NOTE | 2023-08-01 | ECG_ITS ---
Test Reason : QTc Monitoring Blood Pressure : / mmHG Vent. Rate : 105 BPM Atrial Rate : 000 BPM P-R Int : 000 ms QRS Dur : 118 ms QT Int : 302 ms P-R-T Axes : 000 -40 089 degrees QTc Int : 399 ms Atrial fibrillation with rapid ventricular response Left axis deviation Inferior infarct (cited on or before 29-JUL-2023) Anterolateral infarct (cited on or before 29-JUL-2023) Abnormal ECG When compared with ECG of 29-JUL-2023 11:58, No significant change was found Referred By: Alena Cordero Electronically Signed By:
[2023-08-01] MEDS: Heparin Sodium,Porcine 5,000 UNIT/ML VIAL 5000 UNIT SUBCUT ×2 (00:05→08:13)
[2023-08-01] MEDS: HYDROmorphone HCl 0.5 MG/0.5 ML SYRINGE IVPUSH (00:05)
[2023-08-01 00:15] LABS: Glucose, Whole Blood 134 mg/dL (60-115)
[2023-08-01] MEDS: Acetaminophen 1,000 MG/100 ML PIGGYBACK 400 MG IV (00:51)
[2023-08-01] MEDS: dexmedeTOMIDidine HCL/NS 400 MCG/100 ML INFUS..BTL 37.5 MCG IVCONT ×2 (00:52→02:53)
[2023-08-01] MEDS: Piperacillin Sodium/Tazobactam 4.5 GM in 0.9 % Sodium Chloride 100 ML IV ×4 (02:37→20:56)
[2023-08-01 05:03] LABS: VBG Base Excess 7.7 mmol/L; VBG HCO3 33 mmol/L (22-26); VBG pCO2 52 mmHg; VBG pH 7.42 (7.32-7.43); VBG pO2 67 mmHg
[2023-08-01 05:05] LABS: Venous Blood Gas Refer to POC result
[2023-08-01 05:17] LABS: Eosinophils Percent Auto 0.3 % (0-4); Mean Platelet Volume 11.3 fL (9.4-12.4); Neutrophils Percent Auto 80.7 % (45-73); PLT CLUMP 1; Red Cell Distribution Width 13.7 % (11.0-16.0); SCAN SMEAR FLAG 1
[2023-08-01 05:19] LABS: Basophils Percent Auto 0.4 % (0-2); Hematocrit 46.8 % (42.0-52.0); Hemoglobin 14.8 g/dl (14.0-18.0); Imm Gran Abs Auto 0.04 X10*3/uL (0.00-0.03); Imm Gran Pct Auto 0.4 % (0.0-0.4); Lymphocytes Absolute Auto 0.9 X10*3/uL (1.2-4.9); Lymphocytes Percent Auto 9.5 % (20-40); MANUAL DIFF FLAG NO; Mean Corpuscular HGB Conc 31.6 g/dl (31.0-36.0); Mean Corpuscular Hemoglobin 31.9 pg (27.0-33.0); Mean Corpuscular Volume 100.9 fL (80.0-98.0); Monocytes Absolute Auto 0.8 X10*3/uL (0.1-1.2); Monocytes Percent Auto 8.7 % (2-11); Neutrophils Absolute Auto 7.6 x10*3/uL (2.0-8.3); Platelet Count 111 X10*3/uL (160-400); Red Blood Count 4.64 X10*6/uL (4.60-5.80); White Blood Count 9.5 X10*3/uL (4.8-10.8)
--- NOTE | 2023-08-01 05:33 | PC.NURSE ---
Pt was on 2L O2 NC at beginning of this RN's shift. He appears to be only alert to self. At times he will give correct answers to yes/no questions. Other times he either moans, does not answer, or will repeat a word or two that have been said. Approx 0000 pt became increasingly agitated, pulling at staff, attempting to pull them down onto the bed, removing medical equipment. Pt was given PRN pain med w/no effect. BEE ROBBER bedside to evaluate, see MAR for new med orders. Pt slept for the remainder of the night, urine output low (BEE ROBBER aware). Sleep study being conducted overnight. Safety maintained throughout shift.
[2023-08-01 05:39] LABS: Anion Gap 12 (12-20); Blood Urea Nitrogen 37 mg/dL (9-16); Calcium 9.3 mg/dL (8.4-10.2); Carbon Dioxide 32 mmol/L (22-29); Chloride 106 mmol/L (96-108); Creatinine Clr Calc Pharmacy 71.8; Estimated Glomerular Filt Rate 53; Glucose Random 150 mg/dL (60-115); Magnesium 2.2 mg/dL (1.6-2.6); Phosphorus 2.3 mg/dL (2.7-4.5); Potassium 4.4 mmol/L (3.3-5.1); Sodium 146 mmol/L (135-145)
[2023-08-01] MEDS: Furosemide 40 MG/4 ML VIAL 20 MG IVPUSH ×2 (06:05→17:48)
[2023-08-01] MEDS: Albuterol/Iprat 2.5/0.5MG 3 ML AMPUL.NEB INHALE ×4 (07:58→20:02)
--- NOTE | 2023-08-01 08:12 | P.PNCC_ITS ---
Subjective Subjective Date of Service: 08/01/23 Interval History: some agitation during sleep study, placed on dexmedetomidine gtt, now off Critical Care Time (minutes): 60 Physical Exam 2 Vital Signs: Vital Signs: Last Vital Signs Temp 99.3 F 08/01/23 07:00 Pulse 96 08/01/23 07:58 Resp 16 08/01/23 07:58 BP 118/67 08/01/23 07:00 Pulse Ox 95 08/01/23 07:00 O2 Del Method Nasal Cannula 08/01/23 07:00 O2 Flow Rate 2 08/01/23 07:00 FiO2 28 07/31/23 09:00 BMI result Body Mass Index 42.0 Const: Other: fatigued, though easily arousable with verbal stimulus General: comfortable, no acute distress and well developed O rientation/consciousness: oriented to person HEENT: Head: Yes normal to inspection, Yes normocephalic and Yes atraumatic Eyes: General: appearance normal, both eyes and all related structures Neck: Neck: Yes normal visual inspection, Yes full ROM, Yes no meningeal signs, Yes trachea midline and Yes supple Chest: Chest palpation & inspection: normal inspection of the chest Resp: Other: no appreciable rales, rhonchi, wheezing Effort & Inspection: normal respiratory effort Cardio: Rate: regular rate Rhythm: regular rhythm GI: Inspection: Yes normal to inspection, No Abdominal wall edema, No distended and Yes caput medusae present Palpation (GI): Soft to palpation, not firm, nontender, no guarding and not rigid : Male General Exam: Yes normal external exam Skin: General skin exam: no rashes or lesions noted Neuro: General: oriented to person, tone normal, moves all extremities, no meningeal signs and no focal motor deficits Extrem: Other: 1+ pitting edema to bilateral shins General: Yes normal to inspection, Yes full ROM and Yes capillary refill normal Psych: Appearance: grossly normal Objective Data Labs 08/01/23 04:53 08/01/23 04:53 Labs: Laboratory Results - last 24 hr 07/31/23 07/31/23 07/31/23 11:57 18:04 20:00 WBC RBC Hgb Hct MCV MCH MCHC RDW Plt Count MPV Immature Gran % (Auto) Neut % (Auto) Lymph % (Auto) [place] % (Auto) Eos % (Auto) Baso % (Auto) Lymph # (Auto) [place] # (Auto) Eos # (Auto) Baso # (Auto) Abs Immat Gran (auto) Absolute Neuts (auto) Absolute Nucleated RBC Nucleated RBC % (auto) VBG pH VBG pCO2 VBG pO2 VBG HCO3 VBG O2 Saturation VBG Base Excess Sodium Potassium Chloride Carbon Dioxide Anion Gap BUN Creatinine Estim Creat Clear Calc Estimated GFR POC Glucose 138 H 124 H Random Glucose Calcium Phosphorus Magnesium Random Vancomycin 17.8 08/01/23 08/01/23 08/01/23 00:09 04:53 04:54 WBC 9.5 RBC 4.64 Hgb 14.8 Hct 46.8 MCV 100.9 H MCH 31.9 MCHC 31.6 RDW 13.7 Plt Count 111 L MPV 11.3 Immature Gran % (Auto) 0.4 Neut % (Auto) 80.7 H Lymph % (Auto) 9.5 L [place] % (Auto) 8.7 Eos % (Auto) 0.3 Baso % (Auto) 0.4 Lymph # (Auto) 0.9 L [place] # (Auto) 0.8 Eos # (Auto) 0.0 Baso # (Auto) 0.0 Abs Immat Gran (auto) 0.04 H Absolute Neuts (auto) 7.6 Absolute Nucleated RBC 0.000 Nucleated RBC % (auto) 0.0 VBG pH 7.42 VBG pCO2 52 VBG pO2 67 VBG HCO3 33 H VBG O2 Saturation 93.0 VBG Base Excess 7.7 Sodium 146 H Potassium 4.4 Chloride 106 Carbon Dioxide 32 H Anion Gap 12 BUN 37 H Creatinine 1.31 Estim Creat Clear Calc 71.8 Estimated GFR 53 POC Glucose 134 H Random Glucose 150 H Calcium 9.3 Phosphorus 2.3 L Magnesium 2.2 Random Vancomycin Progress Note: A&P Assessment and plan (1) Acute respiratory failure with hypoxia and hypercarbia: Status: Acute (2) Obesity hypoventilation syndrome: Status: Acute (3) Obstructive sleep apnea: Status: Acute (4) CHF (congestive heart failure): Status: Acute Plan Patient is a 77 Y M with AGUEDA, non-compliant with CPAP, CHF, and known decubitus ulcers, presenting from nursing facility w/ reportedly chronic back, abdominal, and groin pain, found to be encephalopathic, hypoxic, and hypercarbic, placed on BiPAP with some initial improvement, though necessitating continued BiPAP N: encephalopathy, likely toxic-metabolic, improved; intermittent agitation, started on quetiapine CV: no acute issues; atrial fibrillation, to resume home apixaban when PO R: acute mixed respiratory failure, likely d/t pneumonia, now off BiPAP during AM; AGUEDA, non-compliant with CPAP, to follow-up sleep study GI: NPO; no clear etiology of presenting abdominal/groin pain : appears volume overloaded; diuresis as tolerated H: no acute issues; chemical DVT prophylaxis ID: cf pneumonia; given nursing facility, on vancomycin, zosyn E: to monitor for hypo-/hyper-glycemia S: daily updates given to healthcare proxy and , tea [place] Stroke Does the patient have a stroke diagnosis?: No VTE Prior VTE?: No VTE Risk Level:: Medical - moderate - high VTE Device Contraindication: N/A - Device Ordered VTE Drug Contraindication: N/A - Med Ordered
[2023-08-01] MEDS: Lidocaine 4 % Patch ADH..PATCH 2 PATCH TRANSDERMA (08:13)
[2023-08-01] MEDS: acetaZOLAMIDE sodium 500 MG VIAL 250 MG IVPUSH (08:13)
[2023-08-01] MEDS: 0.9 % Sodium Chloride Flush 3 ML SYRINGE IVFLUSH (08:14)
[2023-08-01] MEDS: Potassium Phosphate/NS 15 MMOL/250 ML PLAST..BAG 62.5 MMOL IV (09:06)
--- NOTE | 2023-08-01 10:12 | MHC.CLN ---
F/U WOUNDS CHANGED TO MASD PER WOUND NURSE DIET ADVANCED TO PUREED WITH NT LIQ MONITOR PO INTAKE RD TO FOLLOW WEEKLY
[2023-08-01 11:54] LABS: Glucose, Whole Blood 129 mg/dL (60-115)
[2023-08-01] MEDS: Acetaminophen 325 MG TABLET 975 MG PO (12:09)
[2023-08-01] MEDS: Metoprolol Succinate ER 25 MG TAB.ER.24H 75 MG PO (12:55)
--- NOTE | 2023-08-01 14:14 | MHC.SL.SWA ---
Speech Pathologist Impression: Oropharyngeal dysphagia, risk of aspiration Risk of Aspiration Due to: Medically Fragile Dysphasia Diet Status: No changes at this time Liquid Consistency and Strategies for Safe Swallow: Liquid Intake Recommendation: [place] Thick Liquid Intake Strategies: Liquids by Teaspoon Only Solid Food Consistency: Dietary Recommendations: Pureed (NDD1) Additional Modifications to Solid Foods: No changes made to diet order at this time. Patient will need 1:1 assistance feeding and strict aspiration precautions. Do not try feeding patient if he is lethargic or not attending to meal. SQL PROGRAMMER will continue to follow to monitor tolerance of diet and re-assess for potential upgrade if/when appropriate. Oral Medication Intake: Crushed with Puree Please contact the pharmacy regarding appropriate crushable or liquid drug formulations that are available whenever modified delivery is recommended. Compensatory Strategies and Precautions to be Taken for Safe Swallow: Sitting Upright (90 deg) No Straw Liquids from Spoon Small Bites and Sips Alternate Liquids/Solids Rate of Ingestion Change Oral Check Avoid Specific Foods Supervision While Eating and Drinking for Safe Swallow: Total Assistance (1:1) Foods to Avoid: mixed consistencies, sticky/congealed purees. Swallowing Recommended Treatments: Compens. Strategy Educat. Recommendation for Speech: Inpatient Speech Therapy Comment: Patient presents with generalized weakness, confusion, minimal communication. Patient was responsive to being fed by spoon, evidenced confusion when presented with cup sip or hand over hand to assist with self feed. Patient tolerated [place] Thick liquids by spoon, evidenced clinical signs of aspiration on thin liquids. Patient tolerated puree consistencies, did not intiate mastication when given a more solid consistency. Recommend start diet of PUREE (NDD1) with [place] THICK LIQUIDS (by tsp only) pills crushed in puree. Patient requires 1-1 feed. Do not attempt if patient is lethargic, use strict aspiration precautions. Frequency/Duration: Date Range for Service Req: Timeline to reassess: Resource Protection Specialist Clinican/Clinical Fellow: No Supervisory Statement: I have reviewed and agree with the student/clinical fellow's documentation: N/A Speech Language Pathologist: Lanette Lemons M.A., CCC-SQL PROGRAMMER
--- NOTE | 2023-08-01 16:00 | MHC.CM.PN ---
EMR REVIEWED AND PT CONTINUES ON STUDY LAST NOC. CM WILL CONTINUE TO FOLLOW. PLAN WILL BE FOR PT TO RETURN TO [facility] ON DC FOR RESUMPTION OF LTC
[2023-08-01 17:28] LABS: Glucose, Whole Blood 108 mg/dL (60-115)
[2023-08-01 20:28] LABS: Vancomycin Random 8.9 mcg/mL (15-20)
[2023-08-01] MEDS: QUEtiapine Fumarate 25 MG TABLET PO (20:56)
[2023-08-01] MEDS: Apixaban 5 MG TABLET PO (20:56)
[2023-08-01] MEDS: vancomycin HCL 1,500 MG in 0.9 % Sodium Chloride 500 ML 333.33 MG IV (22:37)
[2023-08-02] VITALS (21 sets, daily range): BP systolic 102–168; BP diastolic 63–76; PULSE 93–116; RESP 11–21; TEMP 36.7–37.8; O2SAT 91–99; BMI 41.9
[2023-08-02 00:05] LABS: Glucose, Whole Blood 112 mg/dL (60-115)
[2023-08-02] MEDS: 0.9 % Sodium Chloride Flush 3 ML SYRINGE IVFLUSH ×4 (00:53→20:11)
[2023-08-02] MEDS: Piperacillin Sodium/Tazobactam 4.5 GM in 0.9 % Sodium Chloride 100 ML IV ×4 (02:40→20:10)
[2023-08-02] MEDS: Acetaminophen 325 MG TABLET 975 MG PO (03:20)
--- NOTE | 2023-08-02 04:44 | HO.SKINPHOTO ---
Location: [place] Category: MDPI
[2023-08-02 06:24] LABS: Glucose, Whole Blood 98 mg/dL (60-115)
[2023-08-02 06:46] LABS: VBG Base Excess 8.9 mmol/L; VBG HCO3 34 mmol/L (22-26); VBG pCO2 50 mmHg; VBG pH 7.43 (7.32-7.43); VBG pO2 59 mmHg
[2023-08-02 06:50] LABS: Venous Blood Gas Refer to POC result
[2023-08-02 06:59] LABS: MANUAL DIFF FLAG NO
[2023-08-02 07:08] LABS: Basophils Percent Auto 0.4 % (0-2); Eosinophils Absolute Auto 0.3 X10*3/uL (0.0-0.4); Eosinophils Percent Auto 2.6 % (0-4); Hematocrit 42.5 % (42.0-52.0); Hemoglobin 14.1 g/dl (14.0-18.0); Imm Gran Abs Auto 0.04 X10*3/uL (0.00-0.03); Imm Gran Pct Auto 0.4 % (0.0-0.4); Lymphocytes Absolute Auto 1.1 X10*3/uL (1.2-4.9); Lymphocytes Percent Auto 11.5 % (20-40); Mean Corpuscular HGB Conc 33.2 g/dl (31.0-36.0); Mean Corpuscular Hemoglobin 32.8 pg (27.0-33.0); Mean Corpuscular Volume 98.8 fL (80.0-98.0); Mean Platelet Volume 11.2 fL (9.4-12.4); Neutrophils Absolute Auto 7.2 x10*3/uL (2.0-8.3); Neutrophils Percent Auto 75.1 % (45-73); Platelet Count 109 X10*3/uL (160-400); Red Cell Distribution Width 13.5 % (11.0-16.0); White Blood Count 9.5 X10*3/uL (4.8-10.8)
[2023-08-02 07:11] LABS: Anion Gap 12 (12-20); Blood Urea Nitrogen 30 mg/dL (9-16); Calcium 9.4 mg/dL (8.4-10.2); Carbon Dioxide 32 mmol/L (22-29); Chloride 110 mmol/L (96-108); Creatinine Clr Calc Pharmacy 84.9; Estimated Glomerular Filt Rate > 60; Glucose Random 106 mg/dL (60-115); Potassium 3.8 mmol/L (3.3-5.1); Sodium 150 mmol/L (135-145)
[2023-08-02] MEDS: Albuterol/Iprat 2.5/0.5MG 3 ML AMPUL.NEB INHALE ×3 (07:31→20:23)
--- NOTE | 2023-08-02 08:07 | PM.CCPN ---
Subjective Subjective Date of Service: 08/02/23 Interval History: no significant overnight events; agitation significantly improved; tolerated CPAP overnight Critical Care Time (minutes): 60 Physical Exam Vital Signs: Vital Signs: Last Vital Signs Temp 99.3 F 08/02/23 07:00 Pulse 103 H 08/02/23 07:31 Resp 18 08/02/23 07:31 BP 144/70 H 08/02/23 07:00 Pulse Ox 95 08/02/23 07:00 O2 Del Method Nasal Cannula 08/02/23 07:00 O2 Flow Rate 2 08/02/23 07:00 FiO2 28 07/31/23 09:00 BMI result Body Mass Index 41.9 Const: General: healthy appearing, comfortable, no acute distress, well developed, alert, awake and Physically active Orientation/consciousness: oriented to person HEENT: Head: Yes normal to inspection, Yes normocephalic and Yes atraumatic Eyes: General: appearance normal, both eyes and all related structures Neck: Neck: Yes normal visual inspection, Yes full ROM, Yes trachea midline and Yes supple Chest: Chest palpation & inspection: normal inspection of the chest Resp: Other: no appreciable rales, rhonchi, wheezing Effort & Inspection: normal respiratory effort Cardio: Rate: regular rate Rhythm: regular rhythm GI: Inspection: Yes normal to inspection, No Abdominal wall edema and No distended Palpation (GI): Soft to palpation, not firm, nontender, no guarding and not rigid : Male General Exam: Yes normal external exam Skin: General skin exam: no rashes or lesions noted Neuro: General: oriented to person, tone normal, moves all extremities and no focal motor deficits Extrem: Other: appreciable 1+ pitting edema to bilateral knees General: Yes normal to inspection, Yes full ROM and Yes capillary refill normal Psych: Appearance: grossly normal Objective Data Labs 08/02/23 06:38 08/02/23 06:38 Labs: Laboratory Results - last 24 hr 08/01/23 08/01/23 08/01/23 11:50 17:25 20:05 WBC RBC Hgb Hct MCV MCH MCHC RDW Plt Count MPV Immature Gran % (Auto) Neut % (Auto) Lymph % (Auto) [place] % (Auto) Eos % (Auto) Baso % (Auto) Lymph # (Auto) [place] # (Auto) Eos # (Auto) Baso # (Auto) Abs Immat Gran (auto) Absolute Neuts (auto) Absolute Nucleated RBC Nucleated RBC % (auto) VBG pH VBG pCO2 VBG pO2 VBG HCO3 VBG O2 Saturation VBG Base Excess Sodium Potassium Chloride Carbon Dioxide Anion Gap BUN Creatinine Estim Creat Clear Calc Estimated GFR POC Glucose 129 H 108 Random Glucose Calcium Random Vancomycin 8.9 L 08/02/23 08/02/23 08/02/23 00:01 06:03 06:38 WBC 9.5 RBC 4.30 L Hgb 14.1 Hct 42.5 MCV 98.8 H MCH 32.8 MCHC 33.2 RDW 13.5 Plt Count 109 L MPV 11.2 Immature Gran % (Auto) 0.4 Neut % (Auto) 75.1 H Lymph % (Auto) 11.5 L [place] % (Auto) 10.0 Eos % (Auto) 2.6 Baso % (Auto) 0.4 Lymph # (Auto) 1.1 L [place] # (Auto) 1.0 Eos # (Auto) 0.3 Baso # (Auto) 0.0 Abs Immat Gran (auto) 0.04 H Absolute Neuts (auto) 7.2 Absolute Nucleated RBC 0.000 Nucleated RBC % (auto) 0.0 VBG pH VBG pCO2 VBG pO2 VBG HCO3 VBG O2 Saturation VBG Base Excess Sodium 150 H Potassium 3.8 Chloride 110 H Carbon Dioxide 32 H Anion Gap 12 BUN 30 H Creatinine 1.10 Estim Creat Clear Calc 84.9 Estimated GFR > 60 POC Glucose 112 98 Random Glucose 106 Calcium 9.4 Random Vancomycin 08/02/23 06:39 WBC RBC Hgb Hct MCV MCH MCHC RDW Plt Count MPV Immature Gran % (Auto) Neut % (Auto) Lymph % (Auto) [place] % (Auto) Eos % (Auto) Baso % (Auto) Lymph # (Auto) [place] # (Auto) Eos # (Auto) Baso # (Auto) Abs Immat Gran (auto) Absolute Neuts (auto) Absolute Nucleated RBC Nucleated RBC % (auto) VBG pH 7.43 VBG pCO2 50 VBG pO2 59 VBG HCO3 34 H VBG O2 Saturation 90.0 VBG Base Excess 8.9 Sodium Potassium Chloride Carbon Dioxide Anion Gap BUN Creatinine Estim Creat Clear Calc Estimated GFR POC Glucose Random Glucose Calcium Random Vancomycin Progress Note: A&P Assessment and plan (1) Acute respiratory failure with hypoxia and hypercarbia: Status: Acute (2) Obesity hypoventilation syndrome: Status: Acute (3) Obstructive sleep apnea: Status: Acute (4) CHF (congestive heart failure): Status: Acute Plan Patient is a 77 Y M with AGUEDA, non-compliant with CPAP, CHF, and known decubitus ulcers, presenting from nursing facility w/ reportedly chronic back, abdominal, and groin pain, found to be encephalopathic, hypoxic, and hypercarbic, placed on BiPAP N: encephalopathy, likely toxic-metabolic, improving; intermittent agitation, started on quetiapine, improved CV: no acute issues; atrial fibrillation, home apixaban R: acute mixed respiratory failure, likely d/t pneumonia, now off BiPAP AM for 2 days; AGUEDA, non-compliant with CPAP, now s/p sleep study, tolerating CPAP PM GI: NPO; no clear etiology of presenting abdominal/groin pain : volume overload, improving; hypernatremia, likely d/t diuresis, diuretics decreased H: no acute issues; chemical DVT prophylaxis ID: cf pneumonia; given nursing facility, on vancomycin, zosyn E: to monitor for hypo-/hyper-glycemia S: daily updates given to healthcare proxy and , tea [place] Stroke Does the patient have a stroke diagnosis?: No VTE Prior VTE?: No VTE Risk Level:: Medical - moderate - high VTE Device Contraindication: N/A - Device Ordered VTE Drug Contraindication: N/A - Med Ordered
[2023-08-02] MEDS: Metoprolol Succinate ER 25 MG TAB.ER.24H 75 MG PO (09:07)
[2023-08-02] MEDS: Lidocaine 4 % Patch ADH..PATCH 2 PATCH TRANSDERMA (09:08)
[2023-08-02] MEDS: Apixaban 5 MG TABLET PO ×2 (09:08→20:11)
[2023-08-02] MEDS: Furosemide 40 MG/4 ML VIAL 20 MG IVPUSH (09:08)
--- NOTE | 2023-08-02 09:23 | P.PNPL_ITS ---
Subjective Subjective Date of Service: 08/02/23 Interval history: After diuresing approximately 6 L, respiratory status is approaching baseline. Titrated off daytime BiPAP. Objective Data Labs 08/02/23 06:38 08/02/23 06:38 Labs: Laboratory Results - last 24 hr 08/01/23 08/01/23 08/01/23 11:50 17:25 20:05 WBC RBC Hgb Hct MCV MCH MCHC RDW Plt Count MPV Immature Gran % (Auto) Neut % (Auto) Lymph % (Auto) [place] % (Auto) Eos % (Auto) Baso % (Auto) Lymph # (Auto) [place] # (Auto) Eos # (Auto) Baso # (Auto) Abs Immat Gran (auto) Absolute Neuts (auto) Absolute Nucleated RBC Nucleated RBC % (auto) VBG pH VBG pCO2 VBG pO2 VBG HCO3 VBG O2 Saturation VBG Base Excess Sodium Potassium Chloride Carbon Dioxide Anion Gap BUN Creatinine Estim Creat Clear Calc Estimated GFR POC Glucose 129 H 108 Random Glucose Calcium Random Vancomycin 8.9 L 08/02/23 08/02/23 08/02/23 00:01 06:03 06:38 WBC 9.5 RBC 4.30 L Hgb 14.1 Hct 42.5 MCV 98.8 H MCH 32.8 MCHC 33.2 RDW 13.5 Plt Count 109 L MPV 11.2 Immature Gran % (Auto) 0.4 Neut % (Auto) 75.1 H Lymph % (Auto) 11.5 L [place] % (Auto) 10.0 Eos % (Auto) 2.6 Baso % (Auto) 0.4 Lymph # (Auto) 1.1 L [place] # (Auto) 1.0 Eos # (Auto) 0.3 Baso # (Auto) 0.0 Abs Immat Gran (auto) 0.04 H Absolute Neuts (auto) 7.2 Absolute Nucleated RBC 0.000 Nucleated RBC % (auto) 0.0 VBG pH VBG pCO2 VBG pO2 VBG HCO3 VBG O2 Saturation VBG Base Excess Sodium 150 H Potassium 3.8 Chloride 110 H Carbon Dioxide 32 H Anion Gap 12 BUN 30 H Creatinine 1.10 Estim Creat Clear Calc 84.9 Estimated GFR > 60 POC Glucose 112 98 Random Glucose 106 Calcium 9.4 Random Vancomycin 08/02/23 06:39 WBC RBC Hgb Hct MCV MCH MCHC RDW Plt Count MPV Immature Gran % (Auto) Neut % (Auto) Lymph % (Auto) [place] % (Auto) Eos % (Auto) Baso % (Auto) Lymph # (Auto) [place] # (Auto) Eos # (Auto) Baso # (Auto) Abs Immat Gran (auto) Absolute Neuts (auto) Absolute Nucleated RBC Nucleated RBC % (auto) VBG pH 7.43 VBG pCO2 50 VBG pO2 59 VBG HCO3 34 H VBG O2 Saturation 90.0 VBG Base Excess 8.9 Sodium Potassium Chloride Carbon Dioxide Anion Gap BUN Creatinine Estim Creat Clear Calc Estimated GFR POC Glucose Random Glucose Calcium Random Vancomycin Physical Exam 2 Vital Signs: Vital Signs: Last Vital Signs Temp 99.1 F 08/02/23 09:00 Pulse 109 H 08/02/23 09:00 Resp 20 08/02/23 09:00 BP 146/63 H 08/02/23 09:00 Pulse Ox 94 08/02/23 09:00 O2 Del Method Nasal Cannula 08/02/23 09:00 O2 Flow Rate 2 08/02/23 09:00 FiO2 28 07/31/23 09:00 BMI result Body Mass Index 41.9 Const: General: no acute distress and awake Eyes: Sclerae: sclerae normal EOM: EOMs intact bilaterally Neck: Neck: Yes no lymphadenopathy, Yes trachea midline and Yes supple Resp: Effort & Inspection: normal respiratory effort and no respiratory distress Auscultation: clear to auscultation bilaterally Cardio: Rate: tachycardic Rhythm: regular rhythm Heart sounds: no gallops, no murmurs and no rubs GI: Palpation (GI): Soft to palpation and Other GI palpation findings present ( Nontender) Auscultation: normal bowel sounds Extrem: General: Yes no pedal edema, No clubbing and No cyanosis Procedures Date of Service Date of Service: 08/02/23 Assessment and Plan Assessment and plan (1) Acute respiratory failure with hypoxia and hypercarbia: Status: Acute (2) Obesity hypoventilation syndrome: Status: Acute (3) CHF (congestive heart failure): Status: Acute Plan Impression: 77-year-old gentleman with underlying obesity, with saline compliant with CPAP, likely recent development of obesity hypoventilation syndrome admitted with acute hypercapnic respiratory failure and alteration of mental status initially requiring BiPAP support. On 2D echo vena covered with significantly dilated and noncollapsible but with rising serum bicarbonate and improving creatinine. Appears to be still with component of diastolic congestive heart failure. Now titrated off continuous BiPAP. Respiratory status is approaching baseline. Recommendation: Would continue judicious diuresis. Time Spent With Patient Time: Total time managing care of this patient today ____ minutes. Progress Note: Quality Stroke Does the patient have a stroke diagnosis?: No
[2023-08-02] MEDS: vancomycin HCL 1,000 MG in 0.9 % Sodium Chloride 250 ML 270 MG IV (10:38)
[2023-08-02 11:40] LABS: Glucose, Whole Blood 195 mg/dL (60-115)
[2023-08-02] MEDS: Insulin Lispro 100 UNIT/ML 3 ML VIAL SUBCUT (11:56)
[2023-08-02 15:50] LABS: Glucose, Whole Blood 127 mg/dL (60-115)
[2023-08-02] MEDS: QUEtiapine Fumarate 25 MG TABLET PO (20:11)
[2023-08-02] MEDS: HYDROmorphone HCl 0.5 MG/0.5 ML SYRINGE IVPUSH (20:19)
[2023-08-02 20:39] LABS: Glucose, Whole Blood 147 mg/dL (60-115)
[2023-08-02 20:41] LABS: Vancomycin Random 17.7 mcg/mL (15-20)
[2023-08-02] MEDS: vancomycin HCL 750 MG in 0.9 % Sodium Chloride 250 ML 265 MG IV (22:38)
[2023-08-03] VITALS (13 sets, daily range): BP systolic 142–180; BP diastolic 72–87; PULSE 89–100; RESP 16–20; TEMP 36–36.6; O2SAT 90–96; BMI 41.0
[2023-08-03] MEDS: Piperacillin Sodium/Tazobactam 4.5 GM in 0.9 % Sodium Chloride 100 ML IV ×4 (03:21→21:24)
[2023-08-03] MEDS: HYDROmorphone HCl 0.5 MG/0.5 ML SYRINGE IVPUSH ×2 (05:56→17:45)
[2023-08-03 06:12] LABS: MANUAL DIFF FLAG NO
[2023-08-03 06:15] LABS: Basophils Absolute Auto 0.1 X10*3/uL (0.0-0.2); Basophils Percent Auto 0.7 % (0-2); Eosinophils Absolute Auto 0.4 X10*3/uL (0.0-0.4); Eosinophils Percent Auto 4.2 % (0-4); Hemoglobin 14.6 g/dl (14.0-18.0); Imm Gran Abs Auto 0.04 X10*3/uL (0.00-0.03); Imm Gran Pct Auto 0.4 % (0.0-0.4); Lymphocytes Absolute Auto 1.1 X10*3/uL (1.2-4.9); Lymphocytes Percent Auto 10.2 % (20-40); Mean Corpuscular HGB Conc 32.4 g/dl (31.0-36.0); Mean Corpuscular Hemoglobin 31.7 pg (27.0-33.0); Mean Corpuscular Volume 97.8 fL (80.0-98.0); Mean Platelet Volume 11.1 fL (9.4-12.4); Monocytes Absolute Auto 1.1 X10*3/uL (0.1-1.2); Neutrophils Absolute Auto 7.8 x10*3/uL (2.0-8.3); Neutrophils Percent Auto 74.5 % (45-73); Platelet Count 124 X10*3/uL (160-400); Red Cell Distribution Width 13.5 % (11.0-16.0); White Blood Count 10.5 X10*3/uL (4.8-10.8)
[2023-08-03 06:15] LABS: VBG Base Excess 4.8 mmol/L; VBG HCO3 29 mmol/L (22-26); VBG pCO2 42 mmHg; VBG pH 7.44 (7.32-7.43); VBG pO2 65 mmHg
[2023-08-03 06:16] LABS: Venous Blood Gas Refer to POC result
[2023-08-03 06:33] LABS: Anion Gap 14 (12-20); Blood Urea Nitrogen 23 mg/dL (9-16); Calcium 9.5 mg/dL (8.4-10.2); Carbon Dioxide 27 mmol/L (22-29); Chloride 111 mmol/L (96-108); Creatinine Clr Calc Pharmacy 107.4; Estimated Glomerular Filt Rate > 60; Glucose Random 128 mg/dL (60-115); Magnesium 1.9 mg/dL (1.6-2.6); Phosphorus 1.7 mg/dL (2.7-4.5); Sodium 148 mmol/L (135-145)
[2023-08-03] MEDS: Albuterol/Iprat 2.5/0.5MG 3 ML AMPUL.NEB INHALE ×4 (07:36→18:54)
--- NOTE | 2023-08-03 07:36 | P.PNIM_ITS ---
Subjective Subjective Date of Service: 08/03/23 Interval History: Acute respiratory failure with hypoxia and hypercarbia Review of Systems sob seems improving mental status seems similar no fevers could not answer much questions Physical Exam 2 Vital Signs: Vital Signs: Last Vital Signs Temp 96.8 F 08/03/23 04:00 Pulse 100 08/03/23 04:00 Resp 16 08/03/23 04:00 BP 161/72 H 08/03/23 04:00 Pulse Ox 93 08/03/23 04:00 O2 Del Method CPAP 08/03/23 04:00 O2 Flow Rate 2 08/03/23 00:00 FiO2 28 07/31/23 09:00 BMI result Body Mass Index 41.0 Appearance: Alert.? Oriented X1. cvs: rrr, [id number] . res: clear to auscultation ,no rhonchii or wheezing abd: no rebound or guarding ,nt, bs present. ext pulses present , no cyanosis . neuro: moves ext but seems generlaised weak Objective Data Active Medications Acetaminophen (Acetaminophen 325 Mg Tablet) 975 mg PO Q6H PRN PRN Reason: Pain, Mild (Pain Scale 1-3) Last Admin: 08/02/23 03:20 Dose: 975 mg Documented By: MAITE Albuterol Sulfate (Albuterol Sulfate (0.083%) 2.5 Mg/3 Ml Vial.Neb) 2.5 mg INHALE Q4H PRN PRN Reason: Wheezing Albuterol/Ipratropium (Albuterol/Iprat 2.5/0.5mg 3 Ml Ampul.Neb) 3 ml INHALE RQ4H WHILE AWAKE [facility] Last Admin: 08/02/23 20:23 Dose: 3 ml Documented By: ESTEPHANIA Apixaban (Apixaban 5 Mg Tablet) 5 mg PO BID [facility] Last Admin: 08/02/23 20:11 Dose: 5 mg Documented By: MARISELA Buspirone HCl (Buspirone Hcl 5 Mg Tablet) 5 mg PO BID PRN PRN Reason: Anxiety Furosemide (Furosemide 40 Mg/4 Ml Vial) 20 mg IVPUSH DAILY [facility]; Protocol Last Admin: 08/02/23 09:08 Dose: 20 mg Documented By: COTY Glucose (Glucose Gel 15 Gm Gel..Gram.) 15 gm PO Q15M PRN; Protocol PRN Reason: per Hypoglycemia Standing Ord. Hydromorphone HCl (Hydromorphone Hcl 0.5 Mg/0.5 Ml Syringe) 0.5 mg IVPUSH Q2H PRN; Protocol PRN Reason: Pain, Moderate(Pain Scale 4-6) Last Admin: 08/03/23 05:56 Dose: 0.5 mg Documented By: MARISELA Dextrose (D10) 250 mls @ 750 mls/hr IV Q15M PRN; Protocol PRN Reason: per Hypoglycemia Standing Ord. Piperacillin Sod/Tazobactam (Sod 4.5 gm/ Sodium Chloride) 100 mls @ 200 mls/hr IV Q6H [facility] Last Infusion: 08/03/23 03:51 Dose: Infused Documented By: MARISELA Vancomycin HCl 750 mg/ Sodium (Chloride) 265 mls @ 265 mls/hr IV Q12H [facility] Last Infusion: 08/02/23 23:38 Dose: Infused Documented By: MARISELA Insulin Human Lispro (Insulin Lispro 100 Unit/Ml 3 Ml Vial) 0 unit SUBCUT QIDACHS [facility]; Protocol Lidocaine (Lidocaine 4 % Patch Adh..Patch) 2 patch TRANSDERMA DAILY [facility]; Protocol Last Admin: 08/02/23 09:08 Dose: 2 patch Documented By: COTY Metoprolol Succinate (Metoprolol Succinate Er 25 Mg Tab.Er.24h) 75 mg PO DAILY [facility]; Protocol Last Admin: 08/02/23 09:07 Dose: 75 mg Documented By: COTY Pharmacy Consult (Consult Rx Vancomycin Dosing) 1 each MISCELLANE DAILY PRN PRN Reason: Consult order Quetiapine Fumarate (Quetiapine Fumarate 25 Mg Tablet) 25 mg PO BEDTIME [facility] Last Admin: 08/02/23 20:11 Dose: 25 mg Documented By: MARISELA Sodium Chloride (0.9 % Sodium Chloride Flush 3 Ml Syringe) 3 ml IVFLUSH QSHIFT [facility] Last Admin: 08/02/23 20:11 Dose: 3 ml Documented By: MARISELA Labs 08/03/23 06:02 08/03/23 06:02 Labs: Laboratory Results - last 24 hr 08/02/23 08/02/23 08/02/23 11:35 15:38 20:08 MCV MCH MCHC RDW Plt Count MPV Immature Gran % (Auto) Neut % (Auto) Lymph % (Auto) [place] % (Auto) Eos % (Auto) Baso % (Auto) Lymph # (Auto) [place] # (Auto) Eos # (Auto) Baso # (Auto) Abs Immat Gran (auto) Absolute Neuts (auto) Absolute Nucleated RBC Nucleated RBC % (auto) VBG pH VBG pCO2 VBG pO2 VBG HCO3 VBG O2 Saturation VBG Base Excess Anion Gap Estim Creat Clear Calc Estimated GFR POC Glucose 195 H 127 H Random Glucose Calcium Phosphorus Magnesium Random Vancomycin 17.7 08/02/23 08/03/23 08/03/23 20:34 06:02 06:07 MCV 97.8 MCH 31.7 MCHC 32.4 RDW 13.5 Plt Count 124 L MPV 11.1 Immature Gran % (Auto) 0.4 Neut % (Auto) 74.5 H Lymph % (Auto) 10.2 L [place] % (Auto) 10.0 Eos % (Auto) 4.2 H Baso % (Auto) 0.7 Lymph # (Auto) 1.1 L [place] # (Auto) 1.1 Eos # (Auto) 0.4 Baso # (Auto) 0.1 Abs Immat Gran (auto) 0.04 H Absolute Neuts (auto) 7.8 Absolute Nucleated RBC 0.000 Nucleated RBC % (auto) 0.0 VBG pH 7.44 H VBG pCO2 42 VBG pO2 65 VBG HCO3 29 H VBG O2 Saturation 92.0 VBG Base Excess 4.8 Anion Gap 14 Estim Creat Clear Calc 107.4 Estimated GFR > 60 POC Glucose 147 H Random Glucose 128 H Calcium 9.5 Phosphorus 1.7 L Magnesium 1.9 Random Vancomycin Assessment and Plan (1) Acute respiratory failure with hypoxia and hypercarbia: Status: Acute (2) Acute encephalopathy: Status: Acute Plan Day-5 77 Y M with AGUEDA, non-compliant with CPAP, CHF (review [place] [facility] records-diastolic chf,hypertrophic CM), and known decubitus ulcers, presenting from nursing facility w/ reportedly chronic back, abdominal, and groin pain, found to be encephalopathic, hypoxic, and hypercarbic, placed on BiPAP. Acute respiratory failure with hypoxia and hypercarbia ,toxic metabolic encephalopathy mulifactorial (pneumonia,diastolic chf excerebation , nocomplace with cpap) cxr and ct chest done during this admission-possible lower lobe infiltrates (possible pneumonia) last bnp 346 added procalcitonin levels ,strep ,legionella ag,nasal mrsa scren i/o 5 liter neg no fevers ,sob improving plan: moniter daily weights ,i/o,bnp continue iv lasix ,vanco switched to doxycycine since patient improving ,continue zosyn,nebs,cpap at night tolerating. Incentive spirometry, chest physiotherapy, out of bed to chair if possible. Toxic metabolic encephalopathy as above multifactorial:(as per [facility] record review patient possible underlying cognitive impairment vs dementia Unspecified): hold off sedative meds(gagpentine ,remerone ,trazodone etc) hypernatremia -due to dec po intake ,encouraged for free water po 250 ml q6hr Hypophosphatemia: Added Neutra-Phos treat underlying conditions pneumonia/chf as well as: Please try non-pharmacological interventions first for delirium: - frequent reorientation/redirection/reassurance, encourage family visits/calls - adequate control of pain - monitor for urinary retention, constipation - sleep hygiene (bright light in day, dim at night, limit interruptions at nighttime) - encourage oral hydration and nutrition - window side bed if possible - engage during the daytime, so patient sleeps more at night - out of bed to chair during the daytime . [employer] follow-up. (currently on pureed/necter thick ) diet. Nutrition evaluation Htn: adjusted metoprolol ER 100 mg qd mood dis: continue sertraline added psych eval for Morbid Obesity: need encourgement foe weight loss when better. wound care: 1. Turn and Reposition every 2 hours and as needed for patient comfort.? Use pillows or wedges to support off loading positions. 2. Off Load all bony prominences with use of pillows and heel boots if needed.? Apply Preventative foams where needed. ? 3. Monitor for incontinence and moisture control, use barrier creams when needed for prevention and treatment. 4. Provide adequate and supplemental nutrition.? 5. Continue low air loss mattress = specialty ICU bed. 6. When applicable maintain blood glucose levels per Providers order. 7. Abdominal skin fold - Cleanse with Ph blanced wipes allow to dry. Apply light layer of traid to wound bed. Tuck Interdry AG Sheet into skin fold to wick and translocate moisture away from skin fold.? Be sure to leave at least 2 inch of fabric exposed outside of skin fold.? Change when soiled. 8. Buttock - Off Load Pressure - Cleanse with PH balance spray or wipes, pat dry. ?Apply thin layer of Triad to wound bed - only pat and dab no scrub and rub when soiling occurs. Reapply thin layer PRN after each episode of incontinence. will need wound care follow up Generalized weak: Need PT evaluation. Ongoing hospitalisation need :Acute respiratory failure with hypoxia and hypercarbia ,toxic metabolic encephalopathy mulifactorial, hypernatremia-need IV antibiotics, IV Lasix, renal function electrolyte monitoring as well as mentation monitoring Quality Stroke Does the patient have a stroke diagnosis?: No VTE Prior VTE?: No VTE Risk Level:: Medical - moderate - high VTE Device Contraindication: N/A - Device Ordered VTE Drug Contraindication: N/A - Med Ordered
[2023-08-03 07:47] LABS: Glucose, Whole Blood 125 mg/dL (60-115)
[2023-08-03] MEDS: 0.9 % Sodium Chloride Flush 3 ML SYRINGE IVFLUSH ×3 (09:35→21:24)
[2023-08-03] MEDS: Sertraline HCL 25 MG TABLET 75 MG PO (09:36)
[2023-08-03] MEDS: Metoprolol Succinate ER 100 MG TAB.ER.24H PO (09:36)
[2023-08-03] MEDS: Magnesium Oxide 400 MG TABLET PO ×2 (09:36→21:24)
[2023-08-03] MEDS: Tamsulosin HCL 0.4 MG CAPSULE 0.8 MG PO (09:36)
[2023-08-03] MEDS: Sodium,Potassium Phosphates POWD.PACK 1 PACKET PO ×4 (09:37→21:24)
[2023-08-03] MEDS: Apixaban 5 MG TABLET PO ×2 (09:37→21:24)
[2023-08-03] MEDS: Furosemide 40 MG/4 ML VIAL 20 MG IVPUSH (09:37)
[2023-08-03] MEDS: Finasteride 5 MG TABLET PO (09:37)
[2023-08-03] MEDS: Lidocaine 4 % Patch ADH..PATCH 2 PATCH TRANSDERMA (09:38)
[2023-08-03] MEDS: vancomycin HCL 750 MG in 0.9 % Sodium Chloride 250 ML 265 MG IV (10:15)
[2023-08-03 11:02] LABS: Glucose, Whole Blood 159 mg/dL (60-115)
[2023-08-03] MEDS: Insulin Lispro 100 UNIT/ML 3 ML VIAL SUBCUT ×2 (11:31→16:41)
[2023-08-03] MEDS: Doxycycline Hyclate 100 MG in 0.9 % Sodium Chloride 250 ML 166.67 MG IV (14:18)
[2023-08-03 16:07] LABS: MRSA Nasal PCR NEGATIVE (Negative); SA Nasal PCR NEGATIVE (Negative)
[2023-08-03 16:27] LABS: Glucose, Whole Blood 156 mg/dL (60-115)
--- NOTE | 2023-08-03 16:30 | PM.PSYCN ---
History of Present Illness Date of Service: 08/03/23 Chief Complaint: hypercapnic respiratory failure Reason for Consult: assess psychiatric medication regimen Requesting physician: Ayo Schwab Discussed with referring provider: Yes Sources of Information: patient interviewed and chart reviewed HPI Narrative: Patient is a 77 Y M AGUEDA, non-compliant with CPAP, CHF (review [facility] records-diastolic chf,hypertrophic CM), and known decubitus ulcers, presenting from nursing facility w/ reportedly chronic back, abdominal, and groin pain, found to be encephalopathic, hypoxic, and hypercarbic, placed on BiPAP. Patient is a recent step-down from ICU where he was treated for Acute respiratory failure with hypoxia and hypercarbia , and toxic metabolic encephalopathy mulifactorial (pneumonia,diastolic chf excerebation , nocomplace with cpap). Psychiatry consulted to assess psychiatric medications. Currently patient is gabapentin, Remeron and trazodone are being held. He is alert and oriented to his 1st name, but not as last; his date but nothing else. On approach she was able to say his 1st name, date and then afterwards just started moaning over and over, not answering any questions. Discussed with Dr. Schwab and this is an improvement but at this time it remains unclear what patient is like at baseline. Past Psychiatric History: Unclear at this time Medical Evaluation Reviewed: Yes Personal & Social History: Patient has a [facility] Medical History (Updated 08/04/23 @ 09:04 by Nathan Mistry MD) Back pain Decubital ulcer AGUEDA (obstructive sleep apnea) Bipolar disorder PTSD (post-traumatic stress disorder) Hypertrophic cardiomyopathy Urethral stricture Acute urinary retention Anxiety Depression HTN (hypertension) Diagnostics Vital Signs (24Hr): Vital Signs - 24 hr 08/02/23 20:00 08/02/23 20:27 08/03/23 00:00 Temperature 98.1 F 97.8 F Pulse Rate 99 93 89 Respiratory Rate 20 20 16 Blood Pressure 168/75 H 157/73 H Pulse Oximetry 95 93 Oxygen Delivery Method Nasal Cannula CPAP Oxygen Flow Rate 2 08/03/23 04:00 08/03/23 07:36 08/03/23 08:00 Temperature 96.8 F 97.4 F Pulse Rate 100 90 96 Respiratory Rate 16 18 20 Blood Pressure 161/72 H 180/87 H Pulse Oximetry 93 Oxygen Delivery Method CPAP Oxygen Flow Rate 08/03/23 09:36 08/03/23 11:14 08/03/23 11:57 Temperature 97.3 F Pulse Rate 98 93 93 Respiratory Rate 18 20 Blood Pressure 142/83 H Pulse Oximetry 96 Oxygen Delivery Method Nasal Cannula Oxygen Flow Rate 2 08/03/23 15:20 08/03/23 15:20 Temperature Pulse Rate 95 95 Respiratory Rate 17 17 Blood Pressure Pulse Oximetry 94 Oxygen Delivery Method Oxygen Flow Rate BMI result Body Mass Index 41.0 Labs 08/04/23 07:23 08/04/23 07:23 Labs: Laboratory Results - last 48 hr 08/01/23 08/01/23 08/02/23 17:25 20:05 00:01 WBC RBC Hgb Hct MCV MCH MCHC RDW Plt Count MPV Immature Gran % (Auto) Neut % (Auto) Lymph % (Auto) [place] % (Auto) Eos % (Auto) Baso % (Auto) Lymph # (Auto) [place] # (Auto) Eos # (Auto) Baso # (Auto) Abs Immat Gran (auto) Absolute Neuts (auto) Absolute Nucleated RBC Nucleated RBC % (auto) VBG pH VBG pCO2 VBG pO2 VBG HCO3 VBG O2 Saturation VBG Base Excess Sodium Potassium Chloride Carbon Dioxide Anion Gap BUN Creatinine Estim Creat Clear Calc Estimated GFR POC Glucose 108 112 Random Glucose Calcium Phosphorus Magnesium Procalcitonin Nasal Screen MRSA (PCR) Nasal S. aureus Screen Nasal MRSA/S.aureus Interp Random Vancomycin 8.9 L 08/02/23 08/02/23 08/02/23 06:03 06:38 06:39 WBC 9.5 RBC 4.30 L Hgb 14.1 Hct 42.5 MCV 98.8 H MCH 32.8 MCHC 33.2 RDW 13.5 Plt Count 109 L MPV 11.2 Immature Gran % (Auto) 0.4 Neut % (Auto) 75.1 H Lymph % (Auto) 11.5 L [place] % (Auto) 10.0 Eos % (Auto) 2.6 Baso % (Auto) 0.4 Lymph # (Auto) 1.1 L [place] # (Auto) 1.0 Eos # (Auto) 0.3 Baso # (Auto) 0.0 Abs Immat Gran (auto) 0.04 H Absolute Neuts (auto) 7.2 Absolute Nucleated RBC 0.000 Nucleated RBC % (auto) 0.0 VBG pH 7.43 VBG pCO2 50 VBG pO2 59 VBG HCO3 34 H VBG O2 Saturation 90.0 VBG Base Excess 8.9 Sodium 150 H Potassium 3.8 Chloride 110 H Carbon Dioxide 32 H Anion Gap 12 BUN 30 H Creatinine 1.10 Estim Creat Clear Calc 84.9 Estimated GFR > 60 POC Glucose 98 Random Glucose 106 Calcium 9.4 Phosphorus Magnesium Procalcitonin Nasal Screen MRSA (PCR) Nasal S. aureus Screen Nasal MRSA/S.aureus Interp Random Vancomycin 08/02/23 08/02/23 08/02/23 11:35 15:38 20:08 WBC RBC Hgb Hct MCV MCH MCHC RDW Plt Count MPV Immature Gran % (Auto) Neut % (Auto) Lymph % (Auto) [place] % (Auto) Eos % (Auto) Baso % (Auto) Lymph # (Auto) [place] # (Auto) Eos # (Auto) Baso # (Auto) Abs Immat Gran (auto) Absolute Neuts (auto) Absolute Nucleated RBC Nucleated RBC % (auto) VBG pH VBG pCO2 VBG pO2 VBG HCO3 VBG O2 Saturation VBG Base Excess Sodium Potassium Chloride Carbon Dioxide Anion Gap BUN Creatinine Estim Creat Clear Calc Estimated GFR POC Glucose 195 H 127 H Random Glucose Calcium Phosphorus Magnesium Procalcitonin Nasal Screen MRSA (PCR) Nasal S. aureus Screen Nasal MRSA/S.aureus Interp Random Vancomycin 17.7 08/02/23 08/03/23 08/03/23 20:34 06:02 06:07 WBC 10.5 RBC 4.60 Hgb 14.6 Hct 45.0 MCV 97.8 MCH 31.7 MCHC 32.4 RDW 13.5 Plt Count 124 L MPV 11.1 Immature Gran % (Auto) 0.4 Neut % (Auto) 74.5 H Lymph % (Auto) 10.2 L [place] % (Auto) 10.0 Eos % (Auto) 4.2 H Baso % (Auto) 0.7 Lymph # (Auto) 1.1 L [place] # (Auto) 1.1 Eos # (Auto) 0.4 Baso # (Auto) 0.1 Abs Immat Gran (auto) 0.04 H Absolute Neuts (auto) 7.8 Absolute Nucleated RBC 0.000 Nucleated RBC % (auto) 0.0 VBG pH 7.44 H VBG pCO2 42 VBG pO2 65 VBG HCO3 29 H VBG O2 Saturation 92.0 VBG Base Excess 4.8 Sodium 148 H Potassium 4.0 Chloride 111 H Carbon Dioxide 27 Anion Gap 14 BUN 23 H Creatinine 0.87 Estim Creat Clear Calc 107.4 Estimated GFR > 60 POC Glucose 147 H Random Glucose 128 H Calcium 9.5 Phosphorus 1.7 L Magnesium 1.9 Procalcitonin 0.10 Nasal Screen MRSA (PCR) Nasal S. aureus Screen Nasal MRSA/S.aureus Interp Random Vancomycin 08/03/23 08/03/23 08/03/23 07:27 10:49 14:25 WBC RBC Hgb Hct MCV MCH MCHC RDW Plt Count MPV Immature Gran % (Auto) Neut % (Auto) Lymph % (Auto) [place] % (Auto) Eos % (Auto) Baso % (Auto) Lymph # (Auto) [place] # (Auto) Eos # (Auto) Baso # (Auto) Abs Immat Gran (auto) Absolute Neuts (auto) Absolute Nucleated RBC Nucleated RBC % (auto) VBG pH VBG pCO2 VBG pO2 VBG HCO3 VBG O2 Saturation VBG Base Excess Sodium Potassium Chloride Carbon Dioxide Anion Gap BUN Creatinine Estim Creat Clear Calc Estimated GFR POC Glucose 125 H 159 H Random Glucose Calcium Phosphorus Magnesium Procalcitonin Nasal Screen MRSA (PCR) NEGATIVE Nasal S. aureus Screen NEGATIVE Nasal MRSA/S.aureus Interp SEE NOTE Random Vancomycin 08/03/23 16:11 WBC RBC Hgb Hct MCV MCH MCHC RDW Plt Count MPV Immature Gran % (Auto) Neut % (Auto) Lymph % (Auto) [place] % (Auto) Eos % (Auto) Baso % (Auto) Lymph # (Auto) [place] # (Auto) Eos # (Auto) Baso # (Auto) Abs Immat Gran (auto) Absolute Neuts (auto) Absolute Nucleated RBC Nucleated RBC % (auto) VBG pH VBG pCO2 VBG pO2 VBG HCO3 VBG O2 Saturation VBG Base Excess Sodium Potassium Chloride Carbon Dioxide Anion Gap BUN Creatinine Estim Creat Clear Calc Estimated GFR POC Glucose 156 H Random Glucose Calcium Phosphorus Magnesium Procalcitonin Nasal Screen MRSA (PCR) Nasal S. aureus Screen Nasal MRSA/S.aureus Interp Random Vancomycin Imaging Radiology Impressions: ITS Impressions Chest X-Ray 07/29/23 14:15 IMPRESSION: Stable enlargement of the cardiac silhouette. Question left lung bronchial wall thickening and infiltrate. [place] small left pleural effusion versus prominent epicardial fat. Abdomen/Pelvis CT 07/29/23 15:15 IMPRESSION: 1. There is a question of some mild edema in the head of the pancreas but the exam is limited by motion artifact. Please correlate with serum lipase. 2. A definitive cause for the patient's left lower quadrant pain has not been found. 3. Incidental note made of an enlarged fatty liver, cholelithiasis, splenomegaly and marked BPH. 4. There is a left renal mass which does not have the characteristics of a benign cyst. While this may represent a hyperattenuating Bosniak class II cyst, renal ultrasound is recommended to exclude a solid mass. Fleischner guidelines were followed. Renal Ultrasound 07/30/23 08:00 IMPRESSION: 1. Very limited evaluation of the left kidney. 2. Partially visualized cystic lesion measuring 4.2 x 5.3 x 4.6 cm. Mental Status Exam Mental Status Exam Narrative: Pt is awake and alert but oriented only to his 1st name and his date of ; nothing else. Otherwise in-hospital attire, moaning in bed and unable to answer any other questions; behavior otherwise calm. Thought process disorganized and limited; thought content unable to assess. Insight/judgment impaired Medications Medications Current Medications Acetaminophen (Acetaminophen 325 Mg Tablet) 975 mg PO Q6H PRN PRN Reason: Pain, Mild (Pain Scale 1-3) Last Admin: 08/02/23 03:20 Dose: 975 mg Albuterol Sulfate (Albuterol Sulfate (0.083%) 2.5 Mg/3 Ml Vial.Neb) 2.5 mg INHALE Q4H PRN PRN Reason: Wheezing Albuterol/Ipratropium (Albuterol/Iprat 2.5/0.5mg 3 Ml Ampul.Neb) 3 ml INHALE RQ4H WHILE AWAKE [facility] Last Admin: 08/03/23 15:19 Dose: 3 ml Apixaban (Apixaban 5 Mg Tablet) 5 mg PO BID [facility] Last Admin: 08/03/23 09:37 Dose: 5 mg Buspirone HCl (Buspirone Hcl 5 Mg Tablet) 5 mg PO BID PRN PRN Reason: Anxiety Finasteride (Finasteride 5 Mg Tablet) 5 mg PO DAILY [facility] Last Admin: 08/03/23 09:37 Dose: 5 mg Furosemide (Furosemide 40 Mg/4 Ml Vial) 20 mg IVPUSH DAILY [facility]; Protocol Last Admin: 08/03/23 09:37 Dose: 20 mg Glucose (Glucose Gel 15 Gm Gel..Gram.) 15 gm PO Q15M PRN; Protocol PRN Reason: per Hypoglycemia Standing Ord. Hydromorphone HCl (Hydromorphone Hcl 0.5 Mg/0.5 Ml Syringe) 0.5 mg IVPUSH Q2H PRN; Protocol PRN Reason: Pain, Moderate(Pain Scale 4-6) Last Admin: 08/03/23 05:56 Dose: 0.5 mg Dextrose (D10) 250 mls @ 750 mls/hr IV Q15M PRN; Protocol PRN Reason: per Hypoglycemia Standing Ord. Piperacillin Sod/Tazobactam (Sod 4.5 gm/ Sodium Chloride) 100 mls @ 200 mls/hr IV Q6H [facility] Last Infusion: 08/03/23 10:08 Dose: Infused Doxycycline Hyclate 100 mg/ (Sodium Chloride) 250 mls @ 166.67 mls/hr IV Q12H [facility] Last Infusion: 08/03/23 15:12 Dose: 166.67 mls/hr Insulin Human Lispro (Insulin Lispro 100 Unit/Ml 3 Ml Vial) 0 unit SUBCUT QIDACHS [facility]; Protocol Last Admin: 08/03/23 11:31 Dose: 2 unit Lidocaine (Lidocaine 4 % Patch Adh..Patch) 2 patch TRANSDERMA DAILY [facility]; Protocol Last Admin: 08/03/23 09:38 Dose: 2 patch Lidocaine HCl (Lidocaine 4 % Cream Kit) 1 appl TOPICAL Q8H PRN PRN Reason: to buttock Magnesium Oxide (Magnesium Oxide 400 Mg Tablet) 400 mg PO BID [facility] Last Admin: 08/03/23 09:36 Dose: 400 mg Metoprolol Succinate (Metoprolol Succinate Er 100 Mg Tab.Er.24h) 100 mg PO DAILY [facility]; Protocol Last Admin: 08/03/23 09:36 Dose: 100 mg Non-Formulary Medication (Atropine Sulfate (Pf)) 1 drop EYE-BOTH BEDTIME [facility] Non-Formulary Medication (Carboxymethylcellulose Sodium) 2 drop EYE-BOTH Q4H PRN PRN Reason: Dry Eye(S) Potassium Phos/Sodium Phos (Sodium,Potassium Phosphates Powd.Pack) 1 packet PO QID [facility] Last Admin: 08/03/23 13:00 Dose: 1 packet Quetiapine Fumarate (Quetiapine Fumarate 25 Mg Tablet) 25 mg PO BEDTIME [facility] Last Admin: 08/02/23 20:11 Dose: 25 mg Sertraline HCl (Sertraline Hcl 25 Mg Tablet) 75 mg PO DAILY [facility] Last Admin: 08/03/23 09:36 Dose: 75 mg Simethicone (Simethicone 80 Mg Tab.Chew) 80 mg PO BID PRN PRN Reason: gas Sodium Chloride (0.9 % Sodium Chloride Flush 3 Ml Syringe) 3 ml IVFLUSH QSHIFT [facility] Last Admin: 08/03/23 09:35 Dose: 3 ml Tamsulosin HCl (Tamsulosin Hcl 0.4 Mg Capsule) 0.8 mg PO DAILY [facility] Last Admin: 08/03/23 09:36 Dose: 0.8 mg Allergies Allergies Allergy/AdvReac Type Severity Reaction Status Date / Time No Known Allergies Allergy Verified 07/29/23 11:50 Assessment & Plan Assessment & Plan (1) Delirium: Status: Acute Code(s): R41.0 - Disorientation, unspecified (2) Acute respiratory failure with hypoxia and hypercarbia: Status: Acute Code(s): J96.01 - Acute respiratory failure with hypoxia; J96.02 - Acute respiratory failure with hypercapnia (3) Obstructive sleep apnea: Status: Acute Code(s): G47.33 - Obstructive sleep apnea (adult) (pediatric) (4) CHF (congestive heart failure): Status: Acute Code(s): I50.9 - Heart failure, unspecified Plan Patient is a 77 Y M AGUEDA, non-compliant with CPAP, CHF ([facility]-diastolic chf,hypertrophic CM), and known decubitus ulcers, presenting from nursing facility w/ reportedly chronic back, abdominal, and groin pain, found to be encephalopathic, hypoxic, and hypercarbic, placed on BiPAP. Patient is a recent step-down from ICU where he was treated for Acute respiratory failure with hypoxia and hypercarbia , and toxic metabolic encephalopathy mulifactorial (pneumonia,diastolic chf excerebation , nocomplace with cpap). Psychiatry consulted to assess psychiatric medications. Currently patient is gabapentin, Remeron and trazodone are being held. Impression: Patient is delirious and unable to participate in interview. He is awake and alert but only oriented to his 1st name and birthdate but nothing else. He does not know where he is, why he is here and unable to comprehend his medical illness; patient moaning and unable to answer further questions. Discussed with Dr. Schwab and at this time it is unclear what patient is like at baseline. Given that he is still recovering, not at baseline and unable to participate in interview, song writer agrees with continuing to hold the psychiatric medications. As patient further stabilizes medically and More collateral obtained, assessment can be continued. -continue to hold sedating medication -gather collateral regarding baseline functioning Total time managing care of this patient today ____ minutes. Patient educated on: diagnosis, medication risk/benefits and medical condition Informed Consent: does not understand
[2023-08-03 20:27] LABS: Glucose, Whole Blood 152 mg/dL (60-115)
[2023-08-03] MEDS: QUEtiapine Fumarate 25 MG TABLET PO (21:24)
[2023-08-04] VITALS (14 sets, daily range): BP systolic 137–188; BP diastolic 70–98; PULSE 72–106; RESP 17–20; TEMP 36.2–36.4; O2SAT 91–99; BMI 41.3
[2023-08-04] MEDS: Labetalol HCL 100 MG/20 ML VIAL 10 MG IVPUSH (00:26)
[2023-08-04] MEDS: Doxycycline Hyclate 100 MG in 0.9 % Sodium Chloride 250 ML 166.67 MG IV ×2 (00:31→12:38)
[2023-08-04] MEDS: Piperacillin Sodium/Tazobactam 4.5 GM in 0.9 % Sodium Chloride 100 ML IV ×4 (04:27→20:55)
[2023-08-04 07:27] LABS: MANUAL DIFF FLAG NO
[2023-08-04 07:32] LABS: Basophils Absolute Auto 0.1 X10*3/uL (0.0-0.2); Basophils Percent Auto 0.7 % (0-2); Eosinophils Absolute Auto 0.7 X10*3/uL (0.0-0.4); Eosinophils Percent Auto 6.5 % (0-4); Hematocrit 44.6 % (42.0-52.0); Hemoglobin 14.8 g/dl (14.0-18.0); Imm Gran Abs Auto 0.05 X10*3/uL (0.00-0.03); Imm Gran Pct Auto 0.5 % (0.0-0.4); Lymphocytes Absolute Auto 1.2 X10*3/uL (1.2-4.9); Lymphocytes Percent Auto 11.6 % (20-40); Mean Corpuscular HGB Conc 33.2 g/dl (31.0-36.0); Mean Corpuscular Hemoglobin 32.4 pg (27.0-33.0); Mean Corpuscular Volume 97.6 fL (80.0-98.0); Monocytes Absolute Auto 0.9 X10*3/uL (0.1-1.2); Monocytes Percent Auto 9.2 % (2-11); Neutrophils Absolute Auto 7.2 x10*3/uL (2.0-8.3); Neutrophils Percent Auto 71.5 % (45-73); Platelet Count 120 X10*3/uL (160-400); Red Blood Count 4.57 X10*6/uL (4.60-5.80); Red Cell Distribution Width 13.9 % (11.0-16.0)
[2023-08-04] MEDS: Albuterol/Iprat 2.5/0.5MG 3 ML AMPUL.NEB INHALE ×3 (07:32→19:28)
[2023-08-04 07:33] LABS: Glucose, Whole Blood 111 mg/dL (60-115)
[2023-08-04 07:34] LABS: Venous Blood Gas Refer to POC result
[2023-08-04 07:34] LABS: VBG Base Excess 6.4 mmol/L; VBG HCO3 32 mmol/L (22-26); VBG pCO2 53 mmHg; VBG pH 7.39 (7.32-7.43); VBG pO2 57 mmHg
[2023-08-04 07:53] LABS: Anion Gap 10 (12-20); Blood Urea Nitrogen 22 mg/dL (9-16); Calcium 9.8 mg/dL (8.4-10.2); Carbon Dioxide 30 mmol/L (22-29); Chloride 112 mmol/L (96-108); Creatinine Clr Calc Pharmacy 98.6; Estimated Glomerular Filt Rate > 60; Glucose Random 122 mg/dL (60-115); Sodium 148 mmol/L (135-145)
[2023-08-04 07:56] LABS: B Type Natriuretic Peptide 393 pg/mL (<100)
[2023-08-04] MEDS: Furosemide 40 MG/4 ML VIAL 20 MG IVPUSH (08:36)
[2023-08-04] MEDS: Finasteride 5 MG TABLET PO (08:36)
[2023-08-04] MEDS: Sertraline HCL 25 MG TABLET 75 MG PO (08:36)
[2023-08-04] MEDS: Magnesium Oxide 400 MG TABLET PO ×2 (08:37→20:55)
[2023-08-04] MEDS: Tamsulosin HCL 0.4 MG CAPSULE 0.8 MG PO (08:37)
[2023-08-04] MEDS: Sodium,Potassium Phosphates POWD.PACK 1 PACKET PO ×4 (08:37→20:55)
[2023-08-04] MEDS: Metoprolol Succinate ER 100 MG TAB.ER.24H PO (08:37)
[2023-08-04] MEDS: Apixaban 5 MG TABLET PO ×2 (08:37→20:55)
[2023-08-04] MEDS: 0.9 % Sodium Chloride Flush 3 ML SYRINGE IVFLUSH ×3 (08:39→20:55)
--- NOTE | 2023-08-04 10:30 | MHC.CM.PN ---
Per ROUNDS discussion, Patient is not yet medically cleared for dc (IV LASIX for CHF); returning to LTC @ [facility] is the goal and CM will continue to follow.
[2023-08-04 11:28] LABS: Glucose, Whole Blood 159 mg/dL (60-115)
[2023-08-04] MEDS: Insulin Lispro 100 UNIT/ML 3 ML VIAL SUBCUT (11:40)
--- NOTE | 2023-08-04 13:32 | MHC.CLN ---
RE: CONSULT POOR PO VARIABLE PO RANGING FROM 50-100% RECOMMEND ADDING GELATEIN SUPPLEMENT TID WITH MEAL TRAY SUPP TO PROVIDE 480KCALS, 60G PROTEIN MONITOR PO INTAKE AND ENCOURAGE SUPPLEMENTS
--- NOTE | 2023-08-04 14:51 | MHC.SL.SWA ---
Speech Pathologist Impression: Risk of aspiration, oropharyngeal dysphagia Risk of Aspiration Due to: Medically Fragile Dysphasia Diet Status: No changes Liquid Consistency and Strategies for Safe Swallow: Liquid Intake Recommendation: [place] Thick Liquid Intake Strategies: Liquids by Teaspoon Only Solid Food Consistency: Dietary Recommendations: Pureed (NDD1) Additional Modifications to Solid Foods: No changes made to diet order at this time. Patient will need 1:1 assistance feeding and strict aspiration precautions. Do not try feeding patient if he is lethargic or not attending to meal. [facility] will continue to follow to monitor tolerance of diet and re-assess for potential upgrade if/when appropriate. Oral Medication Intake: Crushed with Puree Please contact the pharmacy regarding appropriate crushable or liquid drug formulations that are available whenever modified delivery is recommended. Compensatory Strategies and Precautions to be Taken for Safe Swallow: Sitting Upright (90 deg) No Straw Liquids from Spoon Small Bites and Sips Alternate Liquids/Solids Rate of Ingestion Change Oral Check Avoid Specific Foods Supervision While Eating and Drinking for Safe Swallow: Total Assistance (1:1) Foods to Avoid: mixed consistencies, sticky/congealed purees. Swallowing Recommended Treatments: Compens. Strategy Educat. Recommendation for Speech: Inpatient Speech Therapy [employer] Clinican/Clinical Fellow: No Supervisory Statement: I have reviewed and agree with the student/clinical fellow's documentation: N/A Speech Language Pathologist: Lanette Lemons M.A., [facility]
--- NOTE | 2023-08-04 15:23 | HO.PM.IMPN ---
Subjective Subjective Date of Service: 08/04/23 Interval History: Acute respiratory failure with hypoxia and hypercarbia Review of Systems sob seems improving,mental status somewhat improving, no fevers could not answer much questions Physical Exam Vital Signs: Vital Signs: Last Vital Signs Temp 97.2 F 08/04/23 11:33 Pulse 99 08/04/23 11:33 Resp 20 08/04/23 11:33 BP 148/78 H 08/04/23 11:33 Pulse Ox 99 08/04/23 11:33 O2 Del Method Nasal Cannula 08/04/23 11:33 O2 Flow Rate 2 08/04/23 11:33 FiO2 28 07/31/23 09:00 BMI result Body Mass Index 41.3 Appearance: Alert.? Oriented X1. cvs: rrr, [id number] . res: clear to auscultation ,no rhonchii or wheezing abd: no rebound or guarding ,nt, bs present. ext pulses present , no cyanosis . neuro: moves ext but seems generlaised weak Objective Data Active Medications Acetaminophen (Acetaminophen 325 Mg Tablet) 975 mg PO Q6H PRN PRN Reason: Pain, Mild (Pain Scale 1-3) Last Admin: 08/02/23 03:20 Dose: 975 mg Documented By: MAITE Albuterol Sulfate (Albuterol Sulfate (0.083%) 2.5 Mg/3 Ml Vial.Neb) 2.5 mg INHALE Q4H PRN PRN Reason: Wheezing Albuterol/Ipratropium (Albuterol/Iprat 2.5/0.5mg 3 Ml Ampul.Neb) 3 ml INHALE RQ4H WHILE AWAKE [facility] Last Admin: 08/04/23 11:07 Dose: 3 ml Documented By: OZ Apixaban (Apixaban 5 Mg Tablet) 5 mg PO BID [facility] Last Admin: 08/04/23 08:37 Dose: 5 mg Documented By: IBRAHIMA Buspirone HCl (Buspirone Hcl 5 Mg Tablet) 5 mg PO BID PRN PRN Reason: Anxiety Finasteride (Finasteride 5 Mg Tablet) 5 mg PO DAILY [facility] Last Admin: 08/04/23 08:36 Dose: 5 mg Documented By: IBRAHIMA Furosemide (Furosemide 40 Mg/4 Ml Vial) 20 mg IVPUSH DAILY [facility]; Protocol Last Admin: 08/04/23 08:36 Dose: 20 mg Documented By: IBRAHIMA Glucose (Glucose Gel 15 Gm Gel..Gram.) 15 gm PO Q15M PRN; Protocol PRN Reason: per Hypoglycemia Standing Ord. Hydromorphone HCl (Hydromorphone Hcl 0.5 Mg/0.5 Ml Syringe) 0.5 mg IVPUSH Q2H PRN; Protocol PRN Reason: Pain, Moderate(Pain Scale 4-6) Last Admin: 08/03/23 17:45 Dose: 0.5 mg Documented By: MARCI Dextrose (D10) 250 mls @ 750 mls/hr IV Q15M PRN; Protocol PRN Reason: per Hypoglycemia Standing Ord. Piperacillin Sod/Tazobactam (Sod 4.5 gm/ Sodium Chloride) 100 mls @ 200 mls/hr IV Q6H [facility] Last Infusion: 08/04/23 15:20 Dose: Infused Documented By: IBRAHIMA Doxycycline Hyclate 100 mg/ (Sodium Chloride) 250 mls @ 166.67 mls/hr IV Q12H [facility] Last Infusion: 08/04/23 14:33 Dose: Infused Documented By: IBRAHIMA Insulin Human Lispro (Insulin Lispro 100 Unit/Ml 3 Ml Vial) 0 unit SUBCUT QIDACHS [facility]; Protocol Last Admin: 08/04/23 11:40 Dose: 2 unit Documented By: IBRAHIMA Lidocaine (Lidocaine 4 % Patch Adh..Patch) 2 patch TRANSDERMA DAILY [facility]; Protocol Last Admin: 08/04/23 08:38 Dose: 2 patch Documented By: IBRAHIMA Lidocaine HCl (Lidocaine 4 % Cream Kit) 1 appl TOPICAL Q8H PRN PRN Reason: to buttock Magnesium Oxide (Magnesium Oxide 400 Mg Tablet) 400 mg PO BID [facility] Last Admin: 08/04/23 08:37 Dose: 400 mg Documented By: IBRAHIMA Metoprolol Succinate (Metoprolol Succinate Er 100 Mg Tab.Er.24h) 100 mg PO DAILY [facility]; Protocol Last Admin: 08/04/23 08:37 Dose: 100 mg Documented By: IBRAHIMA Non-Formulary Medication (Atropine Sulfate (Pf)) 1 drop EYE-BOTH BEDTIME [facility] Non-Formulary Medication (Carboxymethylcellulose Sodium) 2 drop EYE-BOTH Q4H PRN PRN Reason: Dry Eye(S) Potassium Phos/Sodium Phos (Sodium,Potassium Phosphates Powd.Pack) 1 packet PO QID [facility] Last Admin: 08/04/23 12:35 Dose: 1 packet Documented By: IBRAHIMA Quetiapine Fumarate (Quetiapine Fumarate 25 Mg Tablet) 25 mg PO BEDTIME [facility] Last Admin: 08/03/23 21:24 Dose: 25 mg Documented By: ALLEY Sertraline HCl (Sertraline Hcl 25 Mg Tablet) 75 mg PO DAILY [facility] Last Admin: 08/04/23 08:36 Dose: 75 mg Documented By: IBRAHIMA Simethicone (Simethicone 80 Mg Tab.Chew) 80 mg PO BID PRN PRN Reason: gas Sodium Chloride (0.9 % Sodium Chloride Flush 3 Ml Syringe) 3 ml IVFLUSH QSHIFT [facility] Last Admin: 08/04/23 14:45 Dose: 3 ml Documented By: IBRAHIMA Tamsulosin HCl (Tamsulosin Hcl 0.4 Mg Capsule) 0.8 mg PO DAILY [facility] Last Admin: 08/04/23 08:37 Dose: 0.8 mg Documented By: IBRAHIMA Labs 08/04/23 07:23 08/04/23 07:23 Labs: Laboratory Results - last 24 hr 08/03/23 08/03/23 08/03/23 14:25 16:11 20:13 MCV MCH MCHC RDW Plt Count MPV Immature Gran % (Auto) Neut % (Auto) Lymph % (Auto) [place] % (Auto) Eos % (Auto) Baso % (Auto) Lymph # (Auto) [place] # (Auto) Eos # (Auto) Baso # (Auto) Abs Immat Gran (auto) Absolute Neuts (auto) Absolute Nucleated RBC Nucleated RBC % (auto) VBG pH VBG pCO2 VBG pO2 VBG HCO3 VBG O2 Saturation VBG Base Excess Anion Gap Estim Creat Clear Calc Estimated GFR POC Glucose 156 H 152 H Random Glucose Calcium Phosphorus Magnesium B-Natriuretic Peptide Nasal Screen MRSA (PCR) NEGATIVE Nasal S. aureus Screen NEGATIVE Nasal MRSA/S.aureus Interp SEE NOTE 08/04/23 08/04/23 08/04/23 07:08 07:23 07:27 MCV 97.6 MCH 32.4 MCHC 33.2 RDW 13.9 Plt Count 120 L MPV 11.0 Immature Gran % (Auto) 0.5 H Neut % (Auto) 71.5 Lymph % (Auto) 11.6 L [place] % (Auto) 9.2 Eos % (Auto) 6.5 H Baso % (Auto) 0.7 Lymph # (Auto) 1.2 [place] # (Auto) 0.9 Eos # (Auto) 0.7 H Baso # (Auto) 0.1 Abs Immat Gran (auto) 0.05 H Absolute Neuts (auto) 7.2 Absolute Nucleated RBC 0.000 Nucleated RBC % (auto) 0.0 VBG pH 7.39 VBG pCO2 53 VBG pO2 57 VBG HCO3 32 H VBG O2 Saturation 86.0 VBG Base Excess 6.4 Anion Gap 10 L Estim Creat Clear Calc 98.6 Estimated GFR > 60 POC Glucose 111 Random Glucose 122 H Calcium 9.8 Phosphorus 3.0 Magnesium 2.0 B-Natriuretic Peptide 393 H Nasal Screen MRSA (PCR) Nasal S. aureus Screen Nasal MRSA/S.aureus Interp 08/04/23 11:13 MCV MCH MCHC RDW Plt Count MPV Immature Gran % (Auto) Neut % (Auto) Lymph % (Auto) [place] % (Auto) Eos % (Auto) Baso % (Auto) Lymph # (Auto) [place] # (Auto) Eos # (Auto) Baso # (Auto) Abs Immat Gran (auto) Absolute Neuts (auto) Absolute Nucleated RBC Nucleated RBC % (auto) VBG pH VBG pCO2 VBG pO2 VBG HCO3 VBG O2 Saturation VBG Base Excess Anion Gap Estim Creat Clear Calc Estimated GFR POC Glucose 159 H Random Glucose Calcium Phosphorus Magnesium B-Natriuretic Peptide Nasal Screen MRSA (PCR) Nasal S. aureus Screen Nasal MRSA/S.aureus Interp Assessment and Plan (1) Acute respiratory failure with hypoxia and hypercarbia: Status: Acute (2) Acute encephalopathy: Status: Acute Plan Day-6 77 Y M with AGUEDA, non-compliant with CPAP, CHF (review [facility] records-diastolic chf,hypertrophic CM), and known decubitus ulcers, presenting from nursing facility w/ reportedly chronic back, abdominal, and groin pain, found to be encephalopathic, hypoxic, and hypercarbic, placed on BiPAP. Acute respiratory failure with hypoxia and hypercarbia ,toxic metabolic encephalopathy mulifactorial (pneumonia,diastolic chf excerebation , nocomplace with cpap) cxr and ct chest done during this admission-possible lower lobe infiltrates (possible pneumonia) bnp [id number] strep ,legionella ag ordered ,nasal mrsa scren neg i/o 2.4 no fevers ,sob improving plan: moniter daily weights ,i/o,bnp continue iv lasix ,vanco switched to doxycycine since patient improving ,continue zosyn,nebs,cpap at night tolerating. Incentive spirometry, chest physiotherapy, out of bed to chair if possible. Toxic metabolic encephalopathy as above multifactorial:(as per [facility] record review patient possible underlying cognitive impairment vs dementia Unspecified): hold off sedative meds(gagpentine ,remerone ,trazodone etc) hypernatremia -due to dec po intake ,encouraged for free water po 300 ml q6hr Hypophosphatemia: Added Neutra-Phos treat underlying conditions pneumonia/chf as well as: Please try non-pharmacological interventions first for delirium: - frequent reorientation/redirection/reassurance, encourage family visits/calls - adequate control of pain - monitor for urinary retention, constipation - sleep hygiene (bright light in day, dim at night, limit interruptions at nighttime) - encourage oral hydration and nutrition - window side bed if possible - engage during the daytime, so patient sleeps more at night - out of bed to chair during the daytime . SAFETY COMPLIANCE SPECIALIST follow-up. (currently on pureed/necter thick ) diet. Nutrition evaluation Htn: metoprolol ER 100 mg qd mood dis: continue sertraline added psych eval for Morbid Obesity: need encourgement foe weight loss when better. wound care: 1. Turn and Reposition every 2 hours and as needed for patient comfort.? Use pillows or wedges to support off loading positions. 2. Off Load all bony prominences with use of pillows and heel boots if needed.? Apply Preventative foams where needed. ? 3. Monitor for incontinence and moisture control, use barrier creams when needed for prevention and treatment. 4. Provide adequate and supplemental nutrition.? 5. Continue low air loss mattress = specialty ICU bed. 6. When applicable maintain blood glucose levels per Providers order. 7. Abdominal skin fold - Cleanse with Ph blanced wipes allow to dry. Apply light layer of traid to wound bed. Tuck Interdry AG Sheet into skin fold to wick and translocate moisture away from skin fold.? Be sure to leave at least 2 inch of fabric exposed outside of skin fold.? Change when soiled. 8. Buttock - Off Load Pressure - Cleanse with PH balance spray or wipes, pat dry. ?Apply thin layer of Triad to wound bed - only pat and dab no scrub and rub when soiling occurs. Reapply thin layer PRN after each episode of incontinence. will need wound care follow up Generalized weak: Need PT evaluation. Ongoing hospitalisation need :Acute respiratory failure with hypoxia and hypercarbia ,toxic metabolic encephalopathy mulifactorial, hypernatremia-need IV antibiotics, IV Lasix, renal function electrolyte monitoring as well as mentation monitoring Quality Stroke Does the patient have a stroke diagnosis?: No VTE Prior VTE?: No VTE Risk Level:: Medical - moderate - high VTE Device Contraindication: N/A - Device Ordered VTE Drug Contraindication: N/A - Med Ordered
[2023-08-04 16:39] LABS: Glucose, Whole Blood 121 mg/dL (60-115)
[2023-08-04 20:22] LABS: Glucose, Whole Blood 138 mg/dL (60-115)
[2023-08-04] MEDS: QUEtiapine Fumarate 25 MG TABLET PO (20:55)
[2023-08-05] VITALS (10 sets, daily range): BP systolic 138–176; BP diastolic 79–102; PULSE 87–103; RESP 18; TEMP 36.1–36.9; O2SAT 92–99; BMI 42.6
[2023-08-05] MEDS: Doxycycline Hyclate 100 MG in 0.9 % Sodium Chloride 250 ML 166.67 MG IV ×2 (00:36→13:48)
[2023-08-05] MEDS: Piperacillin Sodium/Tazobactam 4.5 GM in 0.9 % Sodium Chloride 100 ML IV ×2 (02:21→09:18)
[2023-08-05 06:35] LABS: MANUAL DIFF FLAG NO
[2023-08-05 06:40] LABS: Venous Blood Gas Refer to POC result
[2023-08-05 06:42] LABS: VBG Base Excess 6.5 mmol/L; VBG HCO3 32 mmol/L (22-26); VBG pCO2 52 mmHg; VBG pO2 61 mmHg
[2023-08-05 06:57] LABS: Anion Gap 11 (12-20); Blood Urea Nitrogen 22 mg/dL (9-16); Calcium 9.4 mg/dL (8.4-10.2); Carbon Dioxide 29 mmol/L (22-29); Chloride 112 mmol/L (96-108); Creatinine Clr Calc Pharmacy 100.3; Estimated Glomerular Filt Rate > 60; Glucose Random 124 mg/dL (60-115); Phosphorus 2.6 mg/dL (2.7-4.5); Sodium 148 mmol/L (135-145)
[2023-08-05 06:58] LABS: Basophils Absolute Auto 0.1 X10*3/uL (0.0-0.2); Basophils Percent Auto 0.6 % (0-2); Eosinophils Absolute Auto 0.7 X10*3/uL (0.0-0.4); Eosinophils Percent Auto 6.8 % (0-4); Hematocrit 44.2 % (42.0-52.0); Hemoglobin 14.9 g/dl (14.0-18.0); Imm Gran Abs Auto 0.04 X10*3/uL (0.00-0.03); Imm Gran Pct Auto 0.4 % (0.0-0.4); Lymphocytes Percent Auto 10.1 % (20-40); Mean Corpuscular HGB Conc 33.7 g/dl (31.0-36.0); Mean Corpuscular Hemoglobin 32.5 pg (27.0-33.0); Mean Corpuscular Volume 96.5 fL (80.0-98.0); Mean Platelet Volume 11.5 fL (9.4-12.4); Monocytes Percent Auto 9.8 % (2-11); Neutrophils Absolute Auto 7.1 x10*3/uL (2.0-8.3); Neutrophils Percent Auto 72.3 % (45-73); Platelet Count 122 X10*3/uL (160-400); Red Blood Count 4.58 X10*6/uL (4.60-5.80); Red Cell Distribution Width 13.9 % (11.0-16.0); White Blood Count 9.8 X10*3/uL (4.8-10.8)
[2023-08-05] MEDS: Albuterol/Iprat 2.5/0.5MG 3 ML AMPUL.NEB INHALE ×4 (07:47→21:16)
[2023-08-05 07:50] LABS: Glucose, Whole Blood 111 mg/dL (60-115)
[2023-08-05] MEDS: Apixaban 5 MG TABLET PO ×2 (09:16→22:03)
[2023-08-05] MEDS: Sodium,Potassium Phosphates POWD.PACK 1 PACKET PO ×4 (09:16→22:02)
[2023-08-05] MEDS: Finasteride 5 MG TABLET PO (09:16)
[2023-08-05] MEDS: Tamsulosin HCL 0.4 MG CAPSULE 0.8 MG PO (09:17)
[2023-08-05] MEDS: Furosemide 40 MG/4 ML VIAL 20 MG IVPUSH (09:17)
[2023-08-05] MEDS: Sertraline HCL 25 MG TABLET 75 MG PO (09:17)
[2023-08-05] MEDS: Magnesium Oxide 400 MG TABLET PO ×2 (09:17→22:03)
[2023-08-05] MEDS: Metoprolol Succinate ER 100 MG TAB.ER.24H PO (09:17)
[2023-08-05] MEDS: 0.9 % Sodium Chloride Flush 3 ML SYRINGE IVFLUSH ×3 (09:18→22:03)
[2023-08-05 11:32] LABS: Glucose, Whole Blood 144 mg/dL (60-115)
--- NOTE | 2023-08-05 12:14 | HO.PM.IMPN ---
Subjective Subjective Date of Service: 08/06/23 Interval History: Being followed for acute respiratory failure with hypoxia and hypercarbia. Patient is somnolent easily arousable offers no complaints of shortness of breath, denies pain, has been mostly in bed. Review of Systems Unable to obtain due to mental status. Physical Exam Vital Signs: Vital Signs: Last Vital Signs Temp 97.2 F 08/05/23 11:30 Pulse 96 08/05/23 11:30 Resp 18 08/05/23 11:30 BP 138/92 H 08/05/23 11:30 Pulse Ox 94 08/05/23 11:30 O2 Del Method Room Air 08/05/23 11:30 O2 Flow Rate 2 08/05/23 07:49 FiO2 28 07/31/23 09:00 BMI result Body Mass Index 42.6 Const: Other: General somnolent easily arousable, in no acute distress. Neck supple no JVD. CVS regular rate rhythm, Respiratory lungs clear to auscultation, no respiratory distress, no wheeze, no rhonchi. Gastrointestinal abdomen soft, distended, non tender, bowel sounds audible, no guarding. Extremities no edema. Neuro moving all 4 extremity, speech clear, answer questions in 1-2 words. Skin no rash Objective Data Active Medications Acetaminophen (Acetaminophen 325 Mg Tablet) 975 mg PO Q6H PRN PRN Reason: Pain, Mild (Pain Scale 1-3) Last Admin: 08/02/23 03:20 Dose: 975 mg Documented By: MAITE Albuterol Sulfate (Albuterol Sulfate (0.083%) 2.5 Mg/3 Ml Vial.Neb) 2.5 mg INHALE Q4H PRN PRN Reason: Wheezing Albuterol/Ipratropium (Albuterol/Iprat 2.5/0.5mg 3 Ml Ampul.Neb) 3 ml INHALE RQ4H WHILE AWAKE [facility] Last Admin: 08/05/23 11:15 Dose: 3 ml Documented By: CRISTIAN Apixaban (Apixaban 5 Mg Tablet) 5 mg PO BID [facility] Last Admin: 08/05/23 09:16 Dose: 5 mg Documented By: IBRAHIMA Buspirone HCl (Buspirone Hcl 5 Mg Tablet) 5 mg PO BID PRN PRN Reason: Anxiety Finasteride (Finasteride 5 Mg Tablet) 5 mg PO DAILY [facility] Last Admin: 08/05/23 09:16 Dose: 5 mg Documented By: IBRAHIMA Furosemide (Furosemide 40 Mg/4 Ml Vial) 20 mg IVPUSH DAILY [facility]; Protocol Last Admin: 08/05/23 09:17 Dose: 20 mg Documented By: IBRAHIMA Glucose (Glucose Gel 15 Gm Gel..Gram.) 15 gm PO Q15M PRN; Protocol PRN Reason: per Hypoglycemia Standing Ord. Hydromorphone HCl (Hydromorphone Hcl 0.5 Mg/0.5 Ml Syringe) 0.5 mg IVPUSH Q2H PRN; Protocol PRN Reason: Pain, Moderate(Pain Scale 4-6) Last Admin: 08/03/23 17:45 Dose: 0.5 mg Documented By: MARCI Dextrose (D10) 250 mls @ 750 mls/hr IV Q15M PRN; Protocol PRN Reason: per Hypoglycemia Standing Ord. Piperacillin Sod/Tazobactam (Sod 4.5 gm/ Sodium Chloride) 100 mls @ 200 mls/hr IV Q6H [facility] Last Infusion: 08/05/23 09:56 Dose: Infused Documented By: IBRAHIMA Doxycycline Hyclate 100 mg/ (Sodium Chloride) 250 mls @ 166.67 mls/hr IV Q12H [facility] Last Infusion: 08/05/23 02:25 Dose: Infused Documented By: LEXUS Insulin Human Lispro (Insulin Lispro 100 Unit/Ml 3 Ml Vial) 0 unit SUBCUT QIDACHS [facility]; Protocol Last Admin: 08/05/23 11:40 Dose: Not Given Documented By: IBRAHIMA Non-Admin Reason: No Insulin Coverage Lidocaine (Lidocaine 4 % Patch Adh..Patch) 2 patch TRANSDERMA DAILY [facility]; Protocol Last Admin: 08/05/23 09:18 Dose: Not Given Documented By: IBRAHIMA Non-Admin Reason: Patient Refused Lidocaine HCl (Lidocaine 4 % Cream Kit) 1 appl TOPICAL Q8H PRN PRN Reason: to buttock Magnesium Oxide (Magnesium Oxide 400 Mg Tablet) 400 mg PO BID [facility] Last Admin: 08/05/23 09:17 Dose: 400 mg Documented By: IBRAHIMA Metoprolol Succinate (Metoprolol Succinate Er 100 Mg Tab.Er.24h) 100 mg PO DAILY [facility]; Protocol Last Admin: 08/05/23 09:17 Dose: 100 mg Documented By: IBRAHIMA Non-Formulary Medication (Atropine Sulfate (Pf)) 1 drop EYE-BOTH BEDTIME [facility] Non-Formulary Medication (Carboxymethylcellulose Sodium) 2 drop EYE-BOTH Q4H PRN PRN Reason: Dry Eye(S) Potassium Phos/Sodium Phos (Sodium,Potassium Phosphates Powd.Pack) 1 packet PO QID [facility] Last Admin: 08/05/23 09:16 Dose: 1 packet Documented By: IBRAHIMA Quetiapine Fumarate (Quetiapine Fumarate 25 Mg Tablet) 25 mg PO BEDTIME [facility] Last Admin: 08/04/23 20:55 Dose: 25 mg Documented By: ALLEY Sertraline HCl (Sertraline Hcl 25 Mg Tablet) 75 mg PO DAILY [facility] Last Admin: 08/05/23 09:17 Dose: 75 mg Documented By: IBRAHIMA Simethicone (Simethicone 80 Mg Tab.Chew) 80 mg PO BID PRN PRN Reason: gas Sodium Chloride (0.9 % Sodium Chloride Flush 3 Ml Syringe) 3 ml IVFLUSH QSHIFT [facility] Last Admin: 08/05/23 09:18 Dose: 3 ml Documented By: IBRAHIMA Tamsulosin HCl (Tamsulosin Hcl 0.4 Mg Capsule) 0.8 mg PO DAILY [facility] Last Admin: 08/05/23 09:17 Dose: 0.8 mg Documented By: IBRAHIMA Labs 08/06/23 05:53 08/06/23 05:53 Labs: Laboratory Results - last 24 hr 08/04/23 08/04/23 08/05/23 16:14 20:07 06:26 MCV 96.5 MCH 32.5 MCHC 33.7 RDW 13.9 Plt Count 122 L MPV 11.5 Immature Gran % (Auto) 0.4 Neut % (Auto) 72.3 Lymph % (Auto) 10.1 L [place] % (Auto) 9.8 Eos % (Auto) 6.8 H Baso % (Auto) 0.6 Lymph # (Auto) 1.0 L [place] # (Auto) 1.0 Eos # (Auto) 0.7 H Baso # (Auto) 0.1 Abs Immat Gran (auto) 0.04 H Absolute Neuts (auto) 7.1 Absolute Nucleated RBC 0.000 Nucleated RBC % (auto) 0.0 VBG pH VBG pCO2 VBG pO2 VBG HCO3 VBG O2 Saturation VBG Base Excess Anion Gap 11 L Estim Creat Clear Calc 100.3 Estimated GFR > 60 POC Glucose 121 H 138 H Random Glucose 124 H Calcium 9.4 Phosphorus 2.6 L Magnesium 2.0 08/05/23 08/05/23 08/05/23 06:36 07:01 10:57 MCV MCH MCHC RDW Plt Count MPV Immature Gran % (Auto) Neut % (Auto) Lymph % (Auto) [place] % (Auto) Eos % (Auto) Baso % (Auto) Lymph # (Auto) [place] # (Auto) Eos # (Auto) Baso # (Auto) Abs Immat Gran (auto) Absolute Neuts (auto) Absolute Nucleated RBC Nucleated RBC % (auto) VBG pH 7.40 VBG pCO2 52 VBG pO2 61 VBG HCO3 32 H VBG O2 Saturation 88.0 VBG Base Excess 6.5 Anion Gap Estim Creat Clear Calc Estimated GFR POC Glucose 111 144 H Random Glucose Calcium Phosphorus Magnesium Assessment and Plan (1) Acute respiratory failure with hypoxia and hypercarbia: Status: Acute (2) Acute encephalopathy: Status: Acute Plan 77 Y M with AGUEDA, non-compliant with CPAP, CHF (review [facility] records-diastolic chf,hypertrophic CM), and known decubitus ulcers, presenting from nursing facility w/ reportedly chronic back, abdominal, and groin pain, found to be encephalopathic, hypoxic, and hypercarbic, placed on BiPAP. Acute respiratory failure with hypoxia and hypercarbia , mulifactorial (pneumonia,diastolic chf excerebation , noncompliance with cpap) cxr showed question left lung bronchial wall thickening and infiltrate and possible small left pleural effusion versus prominent epicardial fat. bnp [phone] nasal mrsa scren neg Treated with IV Lasix, IV antibiotics and CPAP Clinically improved currently on room air with stable oxygenation tolerating CPAP, no recurrent fevers, VBG compensated pH PCO2 in 50s Appears euvolemic, will discontinue IV Lasix cont. doxycycline ,cpap at night , Incentive spirometry, chest physiotherapy, out of bed to chair as tolerated. Sleep study negative, will discuss with pulmonology regarding treatment plan upon discharge Toxic metabolic encephalopathy as above multifactorial:(as per [facility] record patient possible has underlying cognitive impairment vs dementia Unspecified): CT head showed no acute intracranial abnormality, moderate underlying microangiopathy and generalized cerebral volume loss hold off sedative meds(gagpentine ,remerone ,trazodone ) Check TSH/ammonia Seen by Psychiatry they recommend to hold psych medications. hypernatremia -due to dec po intake ,encouraged for free water , hold diuretics. Hypophosphatemia: on Neutra-Phos supplements, follow phosphorus level Dysphagia : Seen by speech therapy (currently on pureed/necter thick ) diet, seen by trigonometry teacher gelatin supplements t.i.d. with meal added. Htn: Follow BP, on metoprolol ER 100 mg qd, will increase to metoprolol ER 150 mg and resume Norvasc 5 mg mood disorder: continue sertraline , on as needed BuSpar and Seroquel 25 mg, will minimize medications to avoid sedation Morbid Obesity: need encourgement for weight loss Bilateral buttocks with moisture associated skin damage/incontinence associated dermatitis present on admission seen by wound nurse they recommend wound care: 1. Turn and Reposition every 2 hours and as needed for patient comfort.? Use pillows or wedges to support off loading positions. 2. Off Load all bony prominences with use of pillows and heel boots if needed.? Apply Preventative foams where needed. ? 3. Monitor for incontinence and moisture control, use barrier creams when needed for prevention and treatment. 4. Provide adequate and supplemental nutrition.? 5. Continue low air loss mattress = specialty ICU bed. 6. When applicable maintain blood glucose levels per Providers order. 7. Abdominal skin fold - Cleanse with Ph blanced wipes allow to dry. Apply light layer of traid to wound bed. Tuck Interdry AG Sheet into skin fold to wick and translocate moisture away from skin fold.? Be sure to leave at least 2 inch of fabric exposed outside of skin fold.? Change when soiled. 8. Buttock - Off Load Pressure - Cleanse with PH balance spray or wipes, pat dry. ?Apply thin layer of Triad to wound bed - only pat and dab no scrub and rub when soiling occurs. Reapply thin layer PRN after each episode of incontinence. will need wound care follow up Generalized weak: seen by by Physical therapy they recommend returned to long-term care upon discharge, patient refusing out of bed to recliner . Patient require continued inpatient hospitalization for Acute respiratory failure with hypoxia and hypercarbia ,toxic metabolic encephalopathy mulifactorial, hypernatremia. Case discussed with patient's and [id number] at bedside answered all their questions. Quality Stroke Does the patient have a stroke diagnosis?: No VTE Prior VTE?: No VTE Risk Level:: Medical - moderate - high VTE Device Contraindication: N/A - Device Ordered VTE Drug Contraindication: N/A - Med Ordered
--- NOTE | 2023-08-05 15:32 | MHC.SPEECHCO ---
Pt resting in the morning, receiving breathing treatment in the afternoon. Per TRAINING DEVELOPMENT SPECIALIST stable with diet. RADIO TECHNICIAN will follow-up in the morning.
[2023-08-05 16:56] LABS: Glucose, Whole Blood 142 mg/dL (60-115)
[2023-08-05 20:10] LABS: Glucose, Whole Blood 138 mg/dL (60-115)
[2023-08-05] MEDS: QUEtiapine Fumarate 25 MG TABLET PO (22:03)
[2023-08-06] VITALS (13 sets, daily range): BP systolic 142–172; BP diastolic 72–87; PULSE 89–110; RESP 18–20; TEMP 36.1–37.3; O2SAT 90–97; BMI 42.3
[2023-08-06] MEDS: Doxycycline Hyclate 100 MG in 0.9 % Sodium Chloride 250 ML 166 MG IV ×2 (02:22→13:18)
[2023-08-06] MEDS: Albuterol Sulfate (0.083%) 2.5 MG/3 ML VIAL.NEB INHALE (05:01)
[2023-08-06 06:21] LABS: MANUAL DIFF FLAG NO
[2023-08-06 06:27] LABS: Basophils Absolute Auto 0.1 X10*3/uL (0.0-0.2); Basophils Percent Auto 0.6 % (0-2); Eosinophils Absolute Auto 0.5 X10*3/uL (0.0-0.4); Eosinophils Percent Auto 3.9 % (0-4); Hematocrit 44.4 % (42.0-52.0); Hemoglobin 15.1 g/dl (14.0-18.0); Imm Gran Abs Auto 0.08 X10*3/uL (0.00-0.03); Imm Gran Pct Auto 0.7 % (0.0-0.4); Lymphocytes Absolute Auto 1.2 X10*3/uL (1.2-4.9); Lymphocytes Percent Auto 10.6 % (20-40); Mean Corpuscular Hemoglobin 32.6 pg (27.0-33.0); Mean Corpuscular Volume 95.9 fL (80.0-98.0); Mean Platelet Volume 11.4 fL (9.4-12.4); Monocytes Absolute Auto 1.3 X10*3/uL (0.1-1.2); Monocytes Percent Auto 10.9 % (2-11); Neutrophils Absolute Auto 8.4 x10*3/uL (2.0-8.3); Neutrophils Percent Auto 73.3 % (45-73); Platelet Count 111 X10*3/uL (160-400); Red Blood Count 4.63 X10*6/uL (4.60-5.80); Red Cell Distribution Width 14.1 % (11.0-16.0); White Blood Count 11.5 X10*3/uL (4.8-10.8)
[2023-08-06 06:40] LABS: Anion Gap 12 (12-20); Blood Urea Nitrogen 25 mg/dL (9-16); Calcium 9.8 mg/dL (8.4-10.2); Carbon Dioxide 29 mmol/L (22-29); Chloride 111 mmol/L (96-108); Creatinine Clr Calc Pharmacy 110.4; Estimated Glomerular Filt Rate > 60; Glucose Random 122 mg/dL (60-115); Magnesium 1.9 mg/dL (1.6-2.6); Potassium 4.1 mmol/L (3.3-5.1); Sodium 148 mmol/L (135-145)
[2023-08-06 07:36] LABS: Glucose, Whole Blood 135 mg/dL (60-115)
[2023-08-06] MEDS: Albuterol/Iprat 2.5/0.5MG 3 ML AMPUL.NEB INHALE (07:52)
[2023-08-06] MEDS: Metoprolol Succinate ER 50 MG TAB.ER.24H 150 MG PO (08:33)
[2023-08-06] MEDS: Apixaban 5 MG TABLET PO ×2 (08:33→21:00)
[2023-08-06] MEDS: Sertraline HCL 25 MG TABLET 75 MG PO (08:33)
[2023-08-06] MEDS: 0.9 % Sodium Chloride Flush 3 ML SYRINGE IVFLUSH ×3 (08:34→23:49)
[2023-08-06] MEDS: Tamsulosin HCL 0.4 MG CAPSULE 0.8 MG PO (08:34)
[2023-08-06] MEDS: Finasteride 5 MG TABLET PO (08:34)
[2023-08-06] MEDS: amLODIPine Besylate 5 MG TABLET PO (08:34)
[2023-08-06] MEDS: Magnesium Oxide 400 MG TABLET PO ×2 (08:34→21:00)
[2023-08-06] MEDS: Sodium,Potassium Phosphates POWD.PACK 1 PACKET PO ×2 (08:37→13:18)
[2023-08-06] MEDS: Lidocaine 4 % Patch ADH..PATCH 2 PATCH TRANSDERMA (08:38)
--- NOTE | 2023-08-06 10:15 | MHC.SL.SWA ---
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 Compensatory Strategies and Precautions to be Taken for Safe Swallow: Sitting Upright (90 deg) Small Bites and Sips Alternate Liquids/Solids Rate of Ingestion Change Oral Check Avoid Specific Foods Supervision While Eating and Drinking for Safe Swallow: Total Supervision (1:1) Foods to Avoid: mixed consistencies Swallowing Recommended Treatments: Compens. Strategy Educat. Recommendation for Speech: Inpatient Speech Therapy Comment: Recommend UPGRADE to CHOPPED/ADVANCED solids and THIN liquids. Continue w/ full supervision and meds crushed/whole in puree d/t mentation. Do not try feeding patient if he is lethargic or not attending to meal. Recommend GRADUATE CIVIL ENGINEER continue to follow to trial upgrade to pt's baseline of regular solids. Central Melt Specialist Clinican/Clinical Fellow: No Supervisory Statement: I have reviewed and agree with the student/clinical fellow's documentation: N/A Speech Language Pathologist: Paty Amador M.A., [facility]-GRADUATE CIVIL ENGINEER
--- NOTE | 2023-08-06 10:33 | MHC.CM.PN ---
Per ROUNDS discussion, Patient is not yet medically cleared for dc (Acute Respiratory Failure & IV ABT); returning to LTC @ [facility] is the goal and CM will continue to follow.
[2023-08-06 11:03] LABS: Glucose, Whole Blood 136 mg/dL (60-115)
[2023-08-06 15:33] LABS: Glucose, Whole Blood 131 mg/dL (60-115)
--- NOTE | 2023-08-06 15:56 | HO.PM.IMPN ---
Subjective Subjective Date of Service: 08/07/23 Interval History: Being followed for acute hypoxic respiratory failure with hypoxia and hypercapnia. Patient remains sedated easily arousable answering questions appropriately complaining of back pain agreeing to be out of bed to recliner, no acute overnight events tolerated CPAP for hours last night Seen by speech therapy diet upgraded to chopped/advanced solids and thin liquids, meds crushed/Hold in puree. Review of Systems All other system reviewed and are negative Physical Exam Vital Signs: Vital Signs: Last Vital Signs Temp 98.9 F 08/06/23 15:35 Pulse 95 08/06/23 15:35 Resp 18 08/06/23 15:35 BP 154/86 H 08/06/23 15:35 Pulse Ox 94 08/06/23 15:35 O2 Del Method Room Air 08/06/23 15:35 O2 Flow Rate 2 08/06/23 07:36 FiO2 28 07/31/23 09:00 BMI result Body Mass Index 42.3 Const: Other: General more awake alert, in no acute distress. Neck supple no JVD. CVS regular rate rhythm, Respiratory lungs clear to auscultation, no respiratory distress, no wheeze, no rhonchi. Gastrointestinal abdomen soft, distended, non tender, bowel sounds audible, no guarding. Extremities no edema. Neuro moving all 4 extremity, speech clear, answering questions appropriately Skin no rash Psych appropriate affect Objective Data Active Medications Acetaminophen (Acetaminophen 325 Mg Tablet) 975 mg PO Q6H PRN PRN Reason: Pain, Mild (Pain Scale 1-3) Last Admin: 08/02/23 03:20 Dose: 975 mg Documented By: MAITE Amlodipine Besylate (Amlodipine Besylate 5 Mg Tablet) 5 mg PO DAILY [facility]; Protocol Last Admin: 08/06/23 08:34 Dose: 5 mg Documented By: PIOTR Apixaban (Apixaban 5 Mg Tablet) 5 mg PO BID [facility] Last Admin: 08/06/23 08:33 Dose: 5 mg Documented By: PIOTR Buspirone HCl (Buspirone Hcl 5 Mg Tablet) 5 mg PO BID PRN PRN Reason: Anxiety Finasteride (Finasteride 5 Mg Tablet) 5 mg PO DAILY [facility] Last Admin: 08/06/23 08:34 Dose: 5 mg Documented By: PIOTR Glucose (Glucose Gel 15 Gm Gel..Gram.) 15 gm PO Q15M PRN; Protocol PRN Reason: per Hypoglycemia Standing Ord. Dextrose (D10) 250 mls @ 750 mls/hr IV Q15M PRN; Protocol PRN Reason: per Hypoglycemia Standing Ord. Doxycycline Hyclate 100 mg/ (Sodium Chloride) 250 mls @ 166.67 mls/hr IV Q12H [facility] Last Infusion: 08/06/23 14:57 Dose: Infused Documented By: PIOTR Insulin Human Lispro (Insulin Lispro 100 Unit/Ml 3 Ml Vial) 0 unit SUBCUT QIDACHS [facility]; Protocol Last Admin: 08/06/23 11:19 Dose: Not Given Documented By: PIOTR Non-Admin Reason: No Insulin Coverage Lidocaine (Lidocaine 4 % Patch Adh..Patch) 2 patch TRANSDERMA DAILY [facility]; Protocol Last Admin: 08/06/23 08:38 Dose: 2 patch Documented By: PIOTR Lidocaine HCl (Lidocaine 4 % Cream Kit) 1 appl TOPICAL Q8H PRN PRN Reason: to buttock Magnesium Oxide (Magnesium Oxide 400 Mg Tablet) 400 mg PO BID [facility] Last Admin: 08/06/23 08:34 Dose: 400 mg Documented By: PIOTR Metoprolol Succinate (Metoprolol Succinate Er 50 Mg Tab.Er.24h) 150 mg PO DAILY [facility]; Protocol Last Admin: 08/06/23 08:33 Dose: 150 mg Documented By: PIOTR Non-Formulary Medication (Atropine Sulfate (Pf)) 1 drop EYE-BOTH BEDTIME [facility] Non-Formulary Medication (Carboxymethylcellulose Sodium) 2 drop EYE-BOTH Q4H PRN PRN Reason: Dry Eye(S) Potassium Phos/Sodium Phos (Sodium,Potassium Phosphates Powd.Pack) 1 packet PO QID [facility] Last Admin: 08/06/23 13:18 Dose: 1 packet Documented By: PIOTR Quetiapine Fumarate (Quetiapine Fumarate 25 Mg Tablet) 12.5 mg PO BEDTIME [facility] Sertraline HCl (Sertraline Hcl 25 Mg Tablet) 75 mg PO DAILY [facility] Last Admin: 08/06/23 08:33 Dose: 75 mg Documented By: PIOTR Simethicone (Simethicone 80 Mg Tab.Chew) 80 mg PO BID PRN PRN Reason: gas Sodium Chloride (0.9 % Sodium Chloride Flush 3 Ml Syringe) 3 ml IVFLUSH QSHIFT [facility] Last Admin: 08/06/23 08:34 Dose: 3 ml Documented By: PIOTR Tamsulosin HCl (Tamsulosin Hcl 0.4 Mg Capsule) 0.8 mg PO DAILY [facility] Last Admin: 08/06/23 08:34 Dose: 0.8 mg Documented By: PIOTR Labs 08/06/23 05:53 08/07/23 06:23 Labs: Laboratory Results - last 24 hr 08/05/23 08/05/23 08/06/23 16:36 20:04 05:53 MCV 95.9 MCH 32.6 MCHC 34.0 RDW 14.1 Plt Count 111 L MPV 11.4 Immature Gran % (Auto) 0.7 H Neut % (Auto) 73.3 H Lymph % (Auto) 10.6 L [place] % (Auto) 10.9 Eos % (Auto) 3.9 Baso % (Auto) 0.6 Lymph # (Auto) 1.2 [place] # (Auto) 1.3 H Eos # (Auto) 0.5 H Baso # (Auto) 0.1 Abs Immat Gran (auto) 0.08 H Absolute Neuts (auto) 8.4 H Absolute Nucleated RBC 0.000 Nucleated RBC % (auto) 0.0 Anion Gap 12 Estim Creat Clear Calc 110.4 Estimated GFR > 60 POC Glucose 142 H 138 H Random Glucose 122 H Calcium 9.8 Phosphorus 3.0 Magnesium 1.9 08/06/23 08/06/23 08/06/23 07:09 10:51 15:19 MCV MCH MCHC RDW Plt Count MPV Immature Gran % (Auto) Neut % (Auto) Lymph % (Auto) [place] % (Auto) Eos % (Auto) Baso % (Auto) Lymph # (Auto) [place] # (Auto) Eos # (Auto) Baso # (Auto) Abs Immat Gran (auto) Absolute Neuts (auto) Absolute Nucleated RBC Nucleated RBC % (auto) Anion Gap Estim Creat Clear Calc Estimated GFR POC Glucose 135 H 136 H 131 H Random Glucose Calcium Phosphorus Magnesium Assessment and Plan (1) Acute respiratory failure with hypoxia and hypercarbia: Status: Acute (2) Acute encephalopathy: Status: Acute Plan 77 Y M with AGUEDA, non-compliant with CPAP, CHF (review [facility] records-diastolic chf,hypertrophic CM), and known decubitus ulcers, presenting from nursing facility w/ reportedly chronic back, abdominal, and groin pain, found to be encephalopathic, hypoxic, and hypercarbic, placed on BiPAP. Acute respiratory failure with hypoxia and hypercarbia , mulifactorial (pneumonia,diastolic chf excerebation , noncompliance with cpap) cxr showed question left lung bronchial wall thickening and infiltrate and possible small left pleural effusion versus prominent epicardial fat. bnp [phone] nasal mrsa scren neg Treated with IV Lasix, IV antibiotics and CPAP Clinically improved currently on room air with stable oxygenation tolerating CPAP, no recurrent fevers, VBG compensated pH PCO2 in 50s Appears euvolemic, will discontinue IV Lasix cont. doxycycline ,cpap at night , Incentive spirometry, chest physiotherapy, out of bed to chair as tolerated. Sleep study negative, spoke with pulmonology they recommend BiPAP at rehab facility due to CO2 retention Toxic metabolic encephalopathy as above multifactorial:(as per [facility] record patient possible has underlying cognitive impairment vs dementia Unspecified): CT head showed no acute intracranial abnormality, moderate underlying microangiopathy and generalized cerebral volume loss Continue to hold sedative meds(gagpentine ,remerone ,trazodone ) Check TSH/ammonia Seen by Psychiatry they recommend to hold psych medications. Will lower dose of Seroquel to 12.5 mg started in ICU. As per [facility] patient was walking to bathroom and was able to feed himself. Will attempt out of bed to chair Chronic back pain will DC IV Dilaudid due to sedation/use hot packs/Aspercreme out of bed hypernatremia -due to dec po intake ,encouraged for free water , hold diuretics. Hypophosphatemia: on Neutra-Phos supplements, phosphorus normalized will DC supplements Dysphagia : Seen by speech therapy diet advanced to chopped solids/thin liquids, seen by wool classer gelatin supplements t.i.d. with meal added. Htn: Noted to have elevated blood pressure, continue metoprolol ER 150 mg and resume Norvasc 5 mg. mood disorder: continue sertraline , on as needed BuSpar and Seroquel 25 mg, will minimize medications to avoid sedation Morbid Obesity: need encourgement for weight loss Bilateral buttocks with moisture associated skin damage/incontinence associated dermatitis present on admission seen by wound nurse they recommend wound care: 1. Turn and Reposition every 2 hours and as needed for patient comfort.? Use pillows or wedges to support off loading positions. 2. Off Load all bony prominences with use of pillows and heel boots if needed.? Apply Preventative foams where needed. ? 3. Monitor for incontinence and moisture control, use barrier creams when needed for prevention and treatment. 4. Provide adequate and supplemental nutrition.? 5. Continue low air loss mattress = specialty ICU bed. 6. When applicable maintain blood glucose levels per Providers order. 7. Abdominal skin fold - Cleanse with Ph blanced wipes allow to dry. Apply light layer of traid to wound bed. Tuck Interdry AG Sheet into skin fold to wick and translocate moisture away from skin fold.? Be sure to leave at least 2 inch of fabric exposed outside of skin fold.? Change when soiled. 8. Buttock - Off Load Pressure - Cleanse with PH balance spray or wipes, pat dry. ?Apply thin layer of Triad to wound bed - only pat and dab no scrub and rub when soiling occurs. Reapply thin layer PRN after each episode of incontinence. will need wound care follow up Generalized weak: seen by by Physical therapy they recommend returned to long-term care upon discharge, patient refusing out of bed to recliner . Patient require continued inpatient hospitalization for Acute respiratory failure with hypoxia and hypercarbia ,toxic metabolic encephalopathy mulifactorial, hypernatremia. Case discussed with patient's and [id number] at bedside answered all their questions. Quality Stroke Does the patient have a stroke diagnosis?: No VTE Prior VTE?: No VTE Risk Level:: Medical - moderate - high VTE Device Contraindication: N/A - Device Ordered VTE Drug Contraindication: N/A - Med Ordered
[2023-08-06 20:14] LABS: Glucose, Whole Blood 145 mg/dL (60-115)
[2023-08-06] MEDS: QUEtiapine Fumarate 25 MG TABLET 12.5 MG PO (21:00)
[2023-08-06] MEDS: Acetaminophen 325 MG TABLET 975 MG PO (21:05)
[2023-08-06] MEDS: Atropine Sulfate 1 % Ophth Sol 2 ML BOTTLE 1 DROP EYE-BOTH (21:07)
[2023-08-07] VITALS (9 sets, daily range): BP systolic 136–162; BP diastolic 71–96; PULSE 86–99; RESP 16–20; TEMP 36–36.8; O2SAT 92–96; BMI 43.0
[2023-08-07] MEDS: Doxycycline Hyclate 100 MG in 0.9 % Sodium Chloride 250 ML 166 MG IV (00:49)
[2023-08-07 06:54] LABS: Ammonia 72 umol/L (13-55)
[2023-08-07 07:02] LABS: Anion Gap 11 (12-20); Blood Urea Nitrogen 25 mg/dL (9-16); Carbon Dioxide 28 mmol/L (22-29); Chloride 109 mmol/L (96-108); Creatinine Clr Calc Pharmacy 111.5; Estimated Glomerular Filt Rate > 60; Glucose Random 115 mg/dL (60-115); Potassium 4.2 mmol/L (3.3-5.1); Sodium 144 mmol/L (135-145)
[2023-08-07 07:03] LABS: Glucose, Whole Blood 120 mg/dL (60-115)
[2023-08-07 07:17] LABS: Thyroid Stimulating Hormone 1.67 uIU/mL (0.32-4.0)
[2023-08-07] MEDS: Apixaban 5 MG TABLET PO ×2 (08:12→21:52)
[2023-08-07] MEDS: Lidocaine 4 % Patch ADH..PATCH 2 PATCH TRANSDERMA (08:12)
[2023-08-07] MEDS: Metoprolol Succinate ER 50 MG TAB.ER.24H 150 MG PO (08:12)
[2023-08-07] MEDS: Finasteride 5 MG TABLET PO (08:12)
[2023-08-07] MEDS: Tamsulosin HCL 0.4 MG CAPSULE 0.8 MG PO (08:12)
[2023-08-07] MEDS: Magnesium Oxide 400 MG TABLET PO ×2 (08:12→21:52)
[2023-08-07] MEDS: 0.9 % Sodium Chloride Flush 3 ML SYRINGE IVFLUSH (08:14)
[2023-08-07] MEDS: Sertraline HCL 25 MG TABLET 75 MG PO (08:14)
[2023-08-07] MEDS: amLODIPine Besylate 5 MG TABLET PO (08:14)
[2023-08-07] MEDS: Lactulose 20 GM/30 ML SOLUTION PO ×2 (10:10→21:52)
--- NOTE | 2023-08-07 10:31 | MHC.CM.PN ---
Per ROUNDS discussion, Patient is not yet medically cleared for dc r/t elevated Ammonia; [facility] has been notified of no planned dc today and they are working on arranging for new Bipap for Patient's return. CM will follow.
[2023-08-07 10:58] LABS: Glucose, Whole Blood 111 mg/dL (60-115)
--- NOTE | 2023-08-07 13:15 | HO.PM.IMPN ---
Subjective Subjective Date of Service: 08/07/23 Interval History: Being followed for acute hypoxic and hypercarbic respiratory failure and acute toxic metabolic encephalopathy. tolerating cpap at night on RA no nausea,no vomiting ,no abd pain,no constipation. Complaining of back pain, No fevers no chills no acute overnight events. Review of Systems All other system reviewed and negative Physical Exam Vital Signs: Vital Signs: Last Vital Signs Temp 98.3 F 08/07/23 11:50 Pulse 94 08/07/23 11:50 Resp 18 08/07/23 11:50 BP 136/96 H 08/07/23 11:50 Pulse Ox 92 08/07/23 11:50 O2 Del Method Room Air 08/07/23 11:50 O2 Flow Rate 2 08/06/23 07:36 FiO2 28 07/31/23 09:00 BMI result Body Mass Index 43.0 Const: Other: General awake, alert ,more interactive , in no acute distress. Neck supple no JVD. CVS regular rate rhythm, Respiratory lungs clear to auscultation, no respiratory distress, no wheeze, no rhonchi. Gastrointestinal abdomen soft, distended, non tender, bowel sounds audible, no guarding. Extremities no edema. Neuro moving all 4 extremity, speech clear, answering questions appropriately, no asterixis Skin no rash Objective Data Active Medications Acetaminophen (Acetaminophen 325 Mg Tablet) 975 mg PO Q6H PRN PRN Reason: Pain, Mild (Pain Scale 1-3) Last Admin: 08/06/23 21:05 Dose: 975 mg Documented By: ISAI Amlodipine Besylate (Amlodipine Besylate 5 Mg Tablet) 5 mg PO DAILY [facility]; Protocol Last Admin: 08/07/23 08:14 Dose: 5 mg Documented By: ANKIT Apixaban (Apixaban 5 Mg Tablet) 5 mg PO BID [facility] Last Admin: 08/07/23 08:12 Dose: 5 mg Documented By: ANKIT Artificial Tears (Artificial Tears 15 Ml Drops) 2 drop EYE-BOTH Q4H PRN PRN Reason: Dry Eye(S) Atropine Sulfate (Atropine Sulfate 1 % Ophth Corine 2 Ml Bottle) 1 drop EYE-BOTH BEDTIME [facility] Last Admin: 08/06/23 21:07 Dose: 1 drop Documented By: ISAI Buspirone HCl (Buspirone Hcl 5 Mg Tablet) 5 mg PO BID PRN PRN Reason: Anxiety Finasteride (Finasteride 5 Mg Tablet) 5 mg PO DAILY [facility] Last Admin: 08/07/23 08:12 Dose: 5 mg Documented By: ANKIT Glucose (Glucose Gel 15 Gm Gel..Gram.) 15 gm PO Q15M PRN; Protocol PRN Reason: per Hypoglycemia Standing Ord. Dextrose (D10) 250 mls @ 750 mls/hr IV Q15M PRN; Protocol PRN Reason: per Hypoglycemia Standing Ord. Insulin Human Lispro (Insulin Lispro 100 Unit/Ml 3 Ml Vial) 0 unit SUBCUT QIDACHS [facility]; Protocol Last Admin: 08/07/23 11:15 Dose: Not Given Documented By: ANKIT Non-Admin Reason: No Insulin Coverage Lactulose (Lactulose 20 Gm/30 Ml Solution) 20 gm PO BID [facility] Last Admin: 08/07/23 10:10 Dose: 20 gm Documented By: ANKIT Lidocaine (Lidocaine 4 % Patch Adh..Patch) 2 patch TRANSDERMA DAILY [facility]; Protocol Last Admin: 08/07/23 08:12 Dose: 2 patch Documented By: ANKIT Lidocaine HCl (Lidocaine 4 % Cream Kit) 1 appl TOPICAL Q8H PRN PRN Reason: to buttock Magnesium Oxide (Magnesium Oxide 400 Mg Tablet) 400 mg PO BID [facility] Last Admin: 08/07/23 08:12 Dose: 400 mg Documented By: ANKIT Metoprolol Succinate (Metoprolol Succinate Er 50 Mg Tab.Er.24h) 150 mg PO DAILY [facility]; Protocol Last Admin: 08/07/23 08:12 Dose: 150 mg Documented By: ANKIT Quetiapine Fumarate (Quetiapine Fumarate 25 Mg Tablet) 12.5 mg PO BEDTIME [facility] Last Admin: 08/06/23 21:00 Dose: 12.5 mg Documented By: ISAI Sertraline HCl (Sertraline Hcl 25 Mg Tablet) 75 mg PO DAILY [facility] Last Admin: 08/07/23 08:14 Dose: 75 mg Documented By: ANKIT Simethicone (Simethicone 80 Mg Tab.Chew) 80 mg PO BID PRN PRN Reason: gas Sodium Chloride (0.9 % Sodium Chloride Flush 3 Ml Syringe) 3 ml IVFLUSH QSHIFT [facility] Last Admin: 08/07/23 08:14 Dose: 3 ml Documented By: ANKIT Tamsulosin HCl (Tamsulosin Hcl 0.4 Mg Capsule) 0.8 mg PO DAILY [facility] Last Admin: 08/07/23 08:12 Dose: 0.8 mg Documented By: ANKIT Labs 08/06/23 05:53 08/07/23 06:23 Labs: Laboratory Results - last 24 hr 08/06/23 08/06/23 08/07/23 15:19 20:11 06:12 Anion Gap Estim Creat Clear Calc Estimated GFR POC Glucose 131 H 145 H Random Glucose Calcium Ammonia 72 H TSH 08/07/23 08/07/23 08/07/23 06:23 06:54 10:49 Anion Gap 11 L Estim Creat Clear Calc 111.5 Estimated GFR > 60 POC Glucose 120 H 111 Random Glucose 115 Calcium 10.0 Ammonia TSH 1.67 Assessment and Plan (1) Acute respiratory failure with hypoxia and hypercarbia: Status: Acute (2) Acute encephalopathy: Status: Acute Plan 77 Y M with AGUEDA, non-compliant with CPAP, CHF (review [facility] records-diastolic chf,hypertrophic CM), and known decubitus ulcers, presenting from nursing facility w/ reportedly chronic back, abdominal, and groin pain, found to be encephalopathic, hypoxic, and hypercarbic, placed on BiPAP. Acute respiratory failure with hypoxia and hypercarbia , mulifactorial (pneumonia,diastolic chf excerebation , noncompliance with cpap) Hypoxia and hypercarbia resolved, no shortness of breath, no PND or orthopnea, appears euvolemic cxr showed question left lung bronchial wall thickening and infiltrate and possible small left pleural effusion versus prominent epicardial fat. bnp [phone] nasal mrsa scren neg Finished course of antibiotics, diuretic discontinued due to dehydration, tolerating CPAP Sleep study negative, spoke with pulmonology they recommend BiPAP at rehab facility due to CO2 retention, cm spoke with [facility] and will have BiPAP arranged Toxic metabolic encephalopathy Likely multifactorial (as per [facility] record patient possible has underlying cognitive impairment vs dementia Unspecified)/polypharmacy/hyperammonemia/hypercarbia: Patient awake alert today answering questions appropriately. CT head showed no acute intracranial abnormality, moderate underlying microangiopathy and generalized cerebral volume loss sedative meds(gabapentine , Zyprexa ,trazodone ) on hold TSH normal/ammonia 72 ? Source , no history of cirrhosis CT scan showed hepatic steatosis, Seen by Psychiatry they recommend to hold psych medications. on Seroquel 12.5 mg at bedtime started in ICU. As per retirement patient was walking to bathroom and was able to feed himself at baseline. Since patient more awake alert today will resume low-dose gabapentin , resume Zyprexa home dose upon discharge, treat hyperammonemia with lactulose Follow ammonia level, if stabilize transfer back to rehab Chronic back pain use hot packs/Aspercreme out of bed, oxycodone as needed hypernatremia -resolved likely due to decreased by mouth intake and diuretics Hypophosphatemia: Repleted repeat phosphorus normal Dysphagia : Seen by speech therapy diet advanced to chopped solids/thin liquids, seen by portrait consultant gelatin supplements t.i.d. with meal added. Htn: Stable continue metoprolol ER 150 mg and Norvasc 5 mg. mood disorder: continue sertraline , as needed BuSpar low-dose and resume Zyprexa at HS upon discharge, will discontinue trazodone upon discharge Morbid Obesity: need encourgement for weight loss Bilateral buttocks with moisture associated skin damage/incontinence associated dermatitis present on admission seen by wound nurse they recommend wound care: 1. Turn and Reposition every 2 hours and as needed for patient comfort.? Use pillows or wedges to support off loading positions. 2. Off Load all bony prominences with use of pillows and heel boots if needed.? Apply Preventative foams where needed. ? 3. Monitor for incontinence and moisture control, use barrier creams when needed for prevention and treatment. 4. Provide adequate and supplemental nutrition.? 5. Continue low air loss mattress = specialty ICU bed. 6. When applicable maintain blood glucose levels per Providers order. 7. Abdominal skin fold - Cleanse with Ph blanced wipes allow to dry. Apply light layer of traid to wound bed. Tuck Interdry AG Sheet into skin fold to wick and translocate moisture away from skin fold.? Be sure to leave at least 2 inch of fabric exposed outside of skin fold.? Change when soiled. 8. Buttock - Off Load Pressure - Cleanse with PH balance spray or wipes, pat dry. ?Apply thin layer of Triad to wound bed - only pat and dab no scrub and rub when soiling occurs. Reapply thin layer PRN after each episode of incontinence. will need wound care follow up Generalized weakness: seen by by Physical therapy they recommend returned to long-term care upon discharge, Patient require continued inpatient hospitalization for Acute respiratory failure with hypoxia and hypercarbia ,toxic metabolic encephalopathy and hyperammonemia Case discussed with patient's at bedside answered all their questions. Quality Stroke Does the patient have a stroke diagnosis?: No VTE Prior VTE?: No VTE Risk Level:: Medical - moderate - high VTE Device Contraindication: N/A - Device Ordered VTE Drug Contraindication: N/A - Med Ordered
--- NOTE | 2023-08-07 13:59 | MHC.SL.SWA ---
Speech Pathologist Impression: Risk of Aspiration Due to: Medically Fragile Dysphasia Diet Status: Recommend continue on current diet of Chopped/Advanced (NDD3) with Thin liquids (NO STRAWS), pills crushed in puree. Patient continues to appear to expect to be fed (likely fed 1-1 @ long term) but can be independent if given ample encouragement and orientation. 1-1 supervision with assistance/encouragement as needed is still required at all meals. Liquid Consistency and Strategies for Safe Swallow: Liquid Intake Recommendation: Thin Liquid Intake Strategies: No Straws Solid Food Consistency: Dietary Recommendations: Chopped/Advanced (NDD3) Additional Modifications to Solid Foods: Oral Medication Intake: Whole with Puree Please contact the pharmacy regarding appropriate crushable or liquid drug formulations that are available whenever modified delivery is recommended. Compensatory Strategies and Precautions to be Taken for Safe Swallow: Sitting Upright (90 deg) Small Bites and Sips Alternate Liquids/Solids Rate of Ingestion Change Oral Check Avoid Specific Foods Supervision While Eating and Drinking for Safe Swallow: Total Supervision (1:1) Foods to Avoid: mixed consistencies Swallowing Recommended Treatments: Compens. Strategy Educat. Recommendation for Speech: Inpatient Speech Therapy Comment: Patient seen at lunch. Patient was sleeping initially but woke to name (prefers Reza ) and expressed interest in having lunch. Patient upgraded yesterday to Chopped/Advanced and thin liquids. Patient accepted only a few bites of meal: fish with mashed potatoes, producing a mildly slow, inefficient mastication pattern. Patient given sips of gingerale between bites, given trial of straw sip, which resulted in immediate wet cough. Gingerale was placed in cup, patient was given sips from cup, which he tolerated without clinical signs of aspiration. Noted mild delay of swallow trigger. Patient then refused any further food. PHLEBOTOMY TECHNICIAN reported that patient has also eaten only small amount at [employer], tolerated juices from cup. Recommend continue on current diet of Chopped/Advanced (NDD3) with Thin liquids (NO STRAWS), pills crushed in puree. Patient continues to appear to expect to be fed (likely fed 1-1 @ long term) but can be independent if given ample encouragement and orientation. 1-1 supervision with assistance/encouragement as needed is still required at all meals. Frequency/Duration: Date Range for Service Req: Timeline to reassess: Director Outpatient Services Clinican/Clinical Fellow: No Supervisory Statement: I have reviewed and agree with the student/clinical fellow's documentation: N/A Speech Language Pathologist: Destinee Ross M.A., [facility] [facility]
--- NOTE | 2023-08-07 14:46 | PC.NURSE ---
pt had 7 beat run of V-tach. Dr Camilo made aware. pt resting comfortably with eyes closed, breathing even and unlabored.
[2023-08-07 16:51] LABS: Glucose, Whole Blood 122 mg/dL (60-115)
[2023-08-07] MEDS: Acetaminophen 325 MG TABLET 975 MG PO (18:23)
[2023-08-07 21:00] LABS: Glucose, Whole Blood 145 mg/dL (60-115)
[2023-08-07] MEDS: QUEtiapine Fumarate 25 MG TABLET 12.5 MG PO (21:52)
[2023-08-07] MEDS: Atropine Sulfate 1 % Ophth Sol 2 ML BOTTLE 1 DROP EYE-BOTH (21:52)
[2023-08-08 03:27] VITALS: PULSE 91; TEMP 36.1; O2SAT 95
[2023-08-08] MEDS: Acetaminophen 325 MG TABLET 975 MG PO (03:34)
[2023-08-08 05:52] VITALS: BMI 41.3
[2023-08-08 07:44] LABS: Glucose, Whole Blood 125 mg/dL (60-115)
[2023-08-08 07:56] VITALS: BP 148/92; PULSE 99; RESP 20; TEMP 36.6; O2SAT 95
[2023-08-08] MEDS: Sertraline HCL 25 MG TABLET 75 MG PO (08:20)
[2023-08-08] MEDS: Metoprolol Succinate ER 50 MG TAB.ER.24H 150 MG PO (08:20)
[2023-08-08] MEDS: Apixaban 5 MG TABLET PO ×2 (08:21→20:46)
[2023-08-08] MEDS: Magnesium Oxide 400 MG TABLET PO ×2 (08:21→20:45)
[2023-08-08] MEDS: amLODIPine Besylate 5 MG TABLET PO (08:21)
[2023-08-08] MEDS: 0.9 % Sodium Chloride Flush 3 ML SYRINGE IVFLUSH ×3 (08:21→17:52)
[2023-08-08] MEDS: Finasteride 5 MG TABLET PO (08:21)
[2023-08-08] MEDS: Tamsulosin HCL 0.4 MG CAPSULE 0.8 MG PO (08:21)
[2023-08-08] MEDS: Lidocaine 4 % Patch ADH..PATCH 2 PATCH TRANSDERMA (08:23)
[2023-08-08] MEDS: Lactulose 20 GM/30 ML SOLUTION PO ×2 (08:23→20:46)
--- NOTE | 2023-08-08 09:42 | MHC.CLN ---
F/U: PO INTAKE: VARIABLE PO DIET RX: DIET UPGRADED TO CHOPPED PER EMPLOYMENT EDUCATIONAL COORD PT RECEIVING GELATEIN SUPPLEMENT TID WITH MEAL TRAY SUPP TO PROVIDE 480KCALS, 60G PROTEIN MONITOR PO INTAKE AND ENCOURAGE SUPPLEMENTS
--- NOTE | 2023-08-08 11:06 | PM.DS ---
DS: Providers Provider Date of Service: 08/08/23 Date of admission: 07/30/23 00:57 Date of discharge: 08/08/23 Primary care physician: Sandrine Braun MD Consults: 07/30/23 07:00 Consult to Pulmonology Routine Consulting Provider: [facility] Reason for consultation: Sleep apnea, somnolence, resp acidosis Has provider been notified: No 07/30/23 07:55 Consult to Wound Care Routine Reason for consultation: Sacral ulcer 08/02/23 04:45 Consult to Wound Care Routine Reason for consultation: MDPI to bridge of nose- CPAP mask changed to under the nose cushion mask 08/03/23 07:51 Consult to Psychiatry Routine Consulting Provider: Psych Covering Reason for consultation: dementia with behavioural disturbances. DS: Diagnosis Discharge Diagnosis (1) Acute respiratory failure with hypoxia and hypercarbia: Status: Acute (2) Acute encephalopathy: Status: Acute DS: Summary Hospital Course Hospital Course: Adiel Arciniega is a 77 years old man with past medical history significant for obstructive sleep apnea not using CPAP, decubitus ulcers, hypertrophic cardiomyopathy, anxiety, depression, obesity and CHF was brought to the emergency department via ambulance from [facility] for left lower back pain evaluation. HPI was obtained from patient's chart and ED provider as the patient was quite lethargic. It seems that he has been getting Tylenol for pain without significant relief. The patient also was complaining of left leg edema and swelling for the last month and was found to have an oxygen saturation 86% on room air. According to ED provider the patient came to the hospital for right groin pain and left lower quadrant pain patient has history of right groin pain for many years. It seems like yesterday the right groin pain came back and more intense. In the ED he was found to have low O2 sat of 86 % on room air and was placed on 4 L/min. He also received treatment with CPAP and BiPAP on and off while getting evaluated in the emergency department. He was also found to have mild degree of tachycardia and tachypnea. His last blood pressure is 116/68. Blood workup showed no leukocytosis. Hemoglobin starting 0.9 and platelets 122. There are no significant electrolyte imbalances. CO2 is 34, creatinine 1.11 and BUN 2. BNP is 346. LFTs are normal. Urinalysis showed microscopic hematuria. CXR showed stable enlargement of the cardiac silhouette, question left lung bronchial wall dizziness infiltrate and small left pleural effusion versus prominent epicardial fat. Abdominal pelvis CT scan showed question of some edema in the head of the pancreas but the exam is limited by motion artifact, incidental enlarged fatty liver, cholelithiasis, splenomegaly and marked BPH. It also a left mass which could be assessed or solid mass. ED tx: Ketorolac 15 mg IV, Lasix 60 mg IV, IV contrast and ondansetron 4 mg IV. Hospital Course Patient was admitted to general medical floor and treated with IV Lasix IV antibiotics and CPAP. CT scan of the head failed to show any abnormalities. He was seen in consultation by Psychiatry in his meds were adjusted. He continued to improve and at the day of discharge is essentially at his baseline and he is medically acceptable to return to [facility] He can be followed up by receiving physician and further plans and treatment as per receiving facility Time Attestation Discharge Coordination Time (in mins): 35 Quality: Safe Use of Opioids Does Pt have an Active Cancer Diagnosis on the Problem List?: No Quality: Stroke Does the patient have a stroke diagnosis?: No Physical Exam Vital Signs: Vital Signs: Last Vital Signs Temp 97.8 F 08/08/23 07:56 Pulse 99 08/08/23 07:56 Resp 20 08/08/23 07:56 BP 148/92 H 08/08/23 07:56 Pulse Ox 95 08/08/23 07:56 O2 Del Method Room Air 08/08/23 07:56 O2 Flow Rate 2 08/06/23 07:36 FiO2 28 07/31/23 09:00 BMI result Body Mass Index 41.3 Const: Other: Awake alert oriented x2 easily reoriented Resp: Other: Clear to auscultation bilaterally no rales rhonchi or wheezes Cardio: Other: No S4; positive S1-S2; no S3 murmurs rubs or gallops GI: Other: Soft nontender nondistended normoactive bowel sounds Extrem: Other: No edema bilaterally DS: Data Data Completed and Pending Labs on day of discharge: Laboratory Results - last 24 hr 08/07/23 08/07/23 08/08/23 16:35 20:57 07:27 POC Glucose 122 H 145 H 125 H Discharge Plan Discharge Anticipated Discharge Date/Time: 08/08/23 11:03 Patient Disposition: Xfer LTC Discharge Diagnosis: Acute hypoxic respiratory failure with hypercarbia secondary to pneumonia Referrals: Sandrine Braun MD [Primary Care Provider] - 1 Week Discharge Medications: Continued amlodipine 5 mg Tablet 5 mg PO DAILY gabapentin 300 mg Capsule 300 mg PO DAILY furosemide [Lasix] 20 mg Tablet 40 mg PO DAILY metformin 500 mg Tablet 500 mg PO DAILY acetaminophen 325 mg Tablet 650 mg PO Q4H PRN (Reason: mild pain/temperature) ipratropium-albuterol 0.5 mg-3 mg(2.5 mg base)/3 mL Solution For Nebulization 3 ml INHALATION Q6H PRN (Reason: Shortness Of Breath) metoprolol succinate 100 mg Tablet Extended Release 24 Hr 150 mg PO DAILY lidocaine 4 % Cream 1 appl TOPICAL Q8H PRN (Reason: to buttock) olanzapine 2.5 mg Tablet 2.5 mg PO BEDTIME sertraline 25 mg Tablet 75 mg PO DAILY simethicone 80 mg Tablet,Chewable 80 mg PO BID PRN (Reason: gas ) Muscle Rub 15-10 % Cream 1 appl TOPICAL Q8H PRN (Reason: Pain) apixaban 5 mg Tablet 5 mg PO BID zinc oxide-white petrolatum 17-57 % Paste 1 appl TOPICAL TID Rx Instructions: to buttock magnesium oxide 400 mg magnesium Tablet 400 mg PO BID carboxymethylcellulose sodium 1 % Drops 2 drp OPHTHALMIC (EYE) Q4H PRN (Reason: Dry Eye(S)) atropine sulfate (PF) 1 % Dropperette 1 drp OPHTHALMIC (EYE) BEDTIME Rx Instructions: until 09/21/23 for surgery on 09/22/23 tamsulosin 0.4 mg capsule 0.8 mg PO DAILY finasteride 5 mg tablet 5 mg PO DAILY 90 Days Qty: 90 1RF Changed gabapentin 600 mg Tablet 300 mg PO BEDTIME Qty: 10 0RF buspirone 10 mg Tablet 5 mg PO BID Qty: 10 0RF Discontinued trazodone 50 mg Tablet 25 mg PO BEDTIME Discharge Orders: Discharge Order (Routine); Ordered 08/08/23 Ordered By: Kolby Wilkerson Diet: Chopped advanced NDD 3 Activity on Discharge: As tolerated Stand Alone Forms: Patient Portal Discharge page Print Language: Kazakh Care Plan Goals: BiPAP at night 12/5 room air Wound care: Bilateral buttocks with moisture associated skin damage/incontinence associated dermatitis present on admission seen by wound nurse they recommend wound care: 1. Turn and Reposition every 2 hours and as needed for patient comfort.? Use pillows or wedges to support off loading positions. 2. Off Load all bony prominences with use of pillows and heel boots if needed.? Apply Preventative foams where needed. ? 3. Monitor for incontinence and moisture control, use barrier creams when needed for prevention and treatment. 4. Provide adequate and supplemental nutrition.? 5. Continue low air loss mattress = specialty ICU bed. 6. When applicable maintain blood glucose levels per Providers order. 7. Abdominal skin fold - Cleanse with Ph blanced wipes allow to dry. Apply light layer of traid to wound bed. Tuck Interdry AG Sheet into skin fold to wick and translocate moisture away from skin fold.? Be sure to leave at least 2 inch of fabric exposed outside of skin fold.? Change when soiled. 8. Buttock - Off Load Pressure - Cleanse with PH balance spray or wipes, pat dry. ?Apply thin layer of Triad to wound bed - only pat and dab no scrub and rub when soiling occurs. Reapply thin layer PRN after each episode of incontinence. will need wound care follow upPrint Health Concerns: Minimize sedatives Plan of Treatment: Outpatient follow-up with PCP Assessment: As above
--- NOTE | 2023-08-08 11:12 | MHC.SL.SWA ---
Speech Pathologist Impression: Risk of aspiration, oropharyngeal dysphagia Risk of Aspiration Due to: Medically Fragile Dysphasia Diet Status: Recommend continue on current diet of Chopped/Advanced (NDD3) with Thin liquids (NO STRAWS), pills crushed in puree. Patient continues to appear to expect to be fed (likely fed 1-1 @ intermediate) but can be independent if given ample encouragement and orientation. 1-1 supervision with assistance/encouragement as needed is still required at all meals. Liquid Consistency and Strategies for Safe Swallow: Liquid Intake Recommendation: Thin Liquid Intake Strategies: No Straws Solid Food Consistency: Dietary Recommendations: Chopped/Advanced (NDD3) Oral Medication Intake: Whole with Puree Please contact the pharmacy regarding appropriate crushable or liquid drug formulations that are available whenever modified delivery is recommended. Compensatory Strategies and Precautions to be Taken for Safe Swallow: Sitting Upright (90 deg) Small Bites and Sips Alternate Liquids/Solids Rate of Ingestion Change Oral Check Avoid Specific Foods Supervision While Eating and Drinking for Safe Swallow: Total Supervision (1:1) Foods to Avoid: mixed consistencies Swallowing Recommended Treatments: Compens. Strategy Educat. Recommendation for Speech: Inpatient Speech Therapy Shoe Ironer Clinican/Clinical Fellow: No Supervisory Statement: I have reviewed and agree with the student/clinical fellow's documentation: N/A Speech Language Pathologist: Lanette Lemons M.A., CCC-[employer]
[2023-08-08 11:17] LABS: Glucose, Whole Blood 127 mg/dL (60-115)
[2023-08-08 11:19] VITALS: BP 145/71; PULSE 85; RESP 20; TEMP 36.2; O2SAT 94
--- NOTE | 2023-08-08 13:40 | MHC.CM.PN ---
EMR reviewed and per MD rounds, pt is not medically cleared for discharge due to ongoing management of acute respiratory failure with hypoxia, with pts ammonia levels being monitored. Anticipating that pt will likely be discharged back to [facility] tomorrow.
[2023-08-08 15:47] LABS: Glucose, Whole Blood 135 mg/dL (60-115)
[2023-08-08 16:00] VITALS: BP 131/61; PULSE 85; RESP 12; TEMP 35.7; O2SAT 95
[2023-08-08 18:41] LABS: Ammonia 69 umol/L (13-55)
[2023-08-08 20:00] VITALS: BP 145/80; PULSE 87; RESP 20; TEMP 36.3; O2SAT 96
[2023-08-08 20:25] LABS: Glucose, Whole Blood 146 mg/dL (60-115)
[2023-08-08] MEDS: QUEtiapine Fumarate 25 MG TABLET 12.5 MG PO (20:45)
[2023-08-08 21:57] VITALS: PULSE 102; RESP 18; O2SAT 96
[2023-08-08] MEDS: Atropine Sulfate 1 % Ophth Sol 2 ML BOTTLE 1 DROP EYE-BOTH (22:17)
[2023-08-09] VITALS (10 sets, daily range): BP systolic 116–134; BP diastolic 60–68; PULSE 81–98; RESP 16–20; TEMP 36.1–36.6; O2SAT 92–98; BMI 40.8
[2023-08-09] MEDS: 0.9 % Sodium Chloride Flush 3 ML SYRINGE IVFLUSH ×3 (00:30→16:41)
[2023-08-09] MEDS: Acetaminophen 325 MG TABLET 975 MG PO (04:31)
[2023-08-09 06:57] LABS: MANUAL DIFF FLAG NO
[2023-08-09 07:05] LABS: Basophils Percent Auto 0.3 % (0-2); Eosinophils Absolute Auto 0.5 X10*3/uL (0.0-0.4); Eosinophils Percent Auto 3.7 % (0-4); Hematocrit 47.3 % (42.0-52.0); Hemoglobin 15.7 g/dl (14.0-18.0); Imm Gran Abs Auto 0.06 X10*3/uL (0.00-0.03); Imm Gran Pct Auto 0.5 % (0.0-0.4); Lymphocytes Absolute Auto 1.6 X10*3/uL (1.2-4.9); Lymphocytes Percent Auto 12.1 % (20-40); Mean Corpuscular HGB Conc 33.2 g/dl (31.0-36.0); Mean Corpuscular Volume 96.5 fL (80.0-98.0); Mean Platelet Volume 12.4 fL (9.4-12.4); Monocytes Absolute Auto 1.4 X10*3/uL (0.1-1.2); Monocytes Percent Auto 10.4 % (2-11); Neutrophils Absolute Auto 9.6 x10*3/uL (2.0-8.3); Platelet Count 115 X10*3/uL (160-400); Red Cell Distribution Width 14.2 % (11.0-16.0); White Blood Count 13.1 X10*3/uL (4.8-10.8)
[2023-08-09 07:38] LABS: Glucose, Whole Blood 110 mg/dL (60-115)
[2023-08-09 07:47] LABS: Alanine Aminotransferase 17 U/L (0-40); Albumin Level 3.4 g/dL (3.5-5.0); Alkaline Phosphatase 114 U/L (39-117); Anion Gap 12 (12-20); Aspartate Amino Transferase 30 U/L (5-37); Bilirubin Total 1.3 mg/dL (0.0-1.0); Blood Urea Nitrogen 21 mg/dL (9-16); Calcium 9.7 mg/dL (8.4-10.2); Carbon Dioxide 25 mmol/L (22-29); Chloride 109 mmol/L (96-108); Creatinine Clr Calc Pharmacy 116.6; Estimated Glomerular Filt Rate > 60; Glucose Fasting 106 mg/dL (60-99); Potassium 4.5 mmol/L (3.3-5.1); Sodium 141 mmol/L (135-145); Total Protein 6.7 g/dL (6.5-8.0)
[2023-08-09] MEDS: Apixaban 5 MG TABLET PO ×2 (08:15→20:37)
[2023-08-09] MEDS: Sertraline HCL 25 MG TABLET 75 MG PO (08:15)
[2023-08-09] MEDS: Metoprolol Succinate ER 50 MG TAB.ER.24H 150 MG PO (08:15)
[2023-08-09] MEDS: Finasteride 5 MG TABLET PO (08:16)
[2023-08-09] MEDS: amLODIPine Besylate 5 MG TABLET PO (08:16)
[2023-08-09] MEDS: Tamsulosin HCL 0.4 MG CAPSULE 0.8 MG PO (08:16)
[2023-08-09] MEDS: Magnesium Oxide 400 MG TABLET PO ×2 (08:16→20:36)
[2023-08-09] MEDS: Lidocaine 4 % Patch ADH..PATCH 2 PATCH TRANSDERMA (08:16)
[2023-08-09] MEDS: Lactulose 20 GM/30 ML SOLUTION PO ×2 (08:16→20:36)
[2023-08-09] MEDS: rifAXIMin 550 MG TABLET PO ×2 (11:14→20:37)
[2023-08-09 11:31] LABS: Glucose, Whole Blood 142 mg/dL (60-115)
--- NOTE | 2023-08-09 13:05 | MHC.CM.PN ---
Addendum entered by Danica Ca 08/09/23 13:12: CM spoke with PAULA/Yi @ [facility] and NACHO[facility]ag [facility] @ [phone],Ext. 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 Per Kimberli @ [facility], Chirag indicated to her that Patient cannot return until Friday08/11/2023. Original Note: Per OC Vibrator Equipment Tester/Kimberli, via [facility], [facility] auth has not been obtained and will not be able to be obtained until 08/11/2023. [employer] V[employer]ator Equipment Tester/Christy indicated in [facility] on 08/06/2023, that she was going for auth but CM is being told today, by Kimberli, that CM needs to obtain [facility] auth. ARMANDO/Kristy asked twice on 08/08/2023, if [facility] needed to obtain auth and those 2 inquiries were not answered.CM will follow.
--- NOTE | 2023-08-09 14:49 | P.PNIM_ITS ---
Subjective Subjective Date of Service: 08/09/23 Interval History: Much brighter this afternoon Review of Systems Denies chest pain Denies shortness of breath Denies nausea vomiting diarrhea Denies fever chills Physical Exam 2 Vital Signs: Vital Signs: Last Vital Signs Temp 97.1 F 08/09/23 12:00 Pulse 87 08/09/23 12:00 Resp 16 08/09/23 12:00 BP 116/60 08/09/23 12:00 Pulse Ox 95 08/09/23 12:00 O2 Del Method Room Air 08/09/23 12:00 O2 Flow Rate 2 08/06/23 07:36 FiO2 45 08/09/23 00:00 BMI result Body Mass Index 40.8 Const: Other: Awake alert oriented x2 easily reoriented Resp: Other: Clear to auscultation bilaterally no rales rhonchi or wheezes Cardio: Other: No S4; positive S1-S2; no S3 murmurs rubs or gallops GI: Other: Soft nontender nondistended normoactive bowel sounds Extrem: Other: No edema bilaterally Objective Data Active Medications Acetaminophen (Acetaminophen 325 Mg Tablet) 975 mg PO Q6H PRN PRN Reason: Pain, Mild (Pain Scale 1-3) Last Admin: 08/09/23 04:31 Dose: 975 mg Documented By: BRANDIN Amlodipine Besylate (Amlodipine Besylate 5 Mg Tablet) 5 mg PO DAILY [facility]; Protocol Last Admin: 08/09/23 08:16 Dose: 5 mg Documented By: PIOTR Apixaban (Apixaban 5 Mg Tablet) 5 mg PO BID [facility] Last Admin: 08/09/23 08:15 Dose: 5 mg Documented By: PIOTR Artificial Tears (Artificial Tears 15 Ml Drops) 2 drop EYE-BOTH Q4H PRN PRN Reason: Dry Eye(S) Atropine Sulfate (Atropine Sulfate 1 % Ophth Corine 2 Ml Bottle) 1 drop EYE-BOTH BEDTIME [facility] Last Admin: 08/08/23 22:17 Dose: 1 drop Documented By: ISAI Buspirone HCl (Buspirone Hcl 5 Mg Tablet) 5 mg PO BID PRN PRN Reason: Anxiety Finasteride (Finasteride 5 Mg Tablet) 5 mg PO DAILY [facility] Last Admin: 08/09/23 08:16 Dose: 5 mg Documented By: PIOTR Glucose (Glucose Gel 15 Gm Gel..Gram.) 15 gm PO Q15M PRN; Protocol PRN Reason: per Hypoglycemia Standing Ord. Dextrose (D10) 250 mls @ 750 mls/hr IV Q15M PRN; Protocol PRN Reason: per Hypoglycemia Standing Ord. Insulin Human Lispro (Insulin Lispro 100 Unit/Ml 3 Ml Vial) 0 unit SUBCUT QIDACHS [facility]; Protocol Last Admin: 08/09/23 12:20 Dose: Not Given Documented By: PIOTR Non-Admin Reason: No Insulin Coverage Lactulose (Lactulose 20 Gm/30 Ml Solution) 20 gm PO BID [facility] Last Admin: 08/09/23 08:16 Dose: 20 gm Documented By: PIOTR Lidocaine (Lidocaine 4 % Patch Adh..Patch) 2 patch TRANSDERMA DAILY [facility]; Protocol Last Admin: 08/09/23 08:16 Dose: 2 patch Documented By: PIOTR Lidocaine HCl (Lidocaine 4 % Cream Kit) 1 appl TOPICAL Q8H PRN PRN Reason: to buttock Magnesium Oxide (Magnesium Oxide 400 Mg Tablet) 400 mg PO BID [facility] Last Admin: 08/09/23 08:16 Dose: 400 mg Documented By: PIOTR Metoprolol Succinate (Metoprolol Succinate Er 50 Mg Tab.Er.24h) 150 mg PO DAILY [facility]; Protocol Last Admin: 08/09/23 08:15 Dose: 150 mg Documented By: PIOTR Quetiapine Fumarate (Quetiapine Fumarate 25 Mg Tablet) 12.5 mg PO BEDTIME [facility] Last Admin: 08/08/23 20:45 Dose: 12.5 mg Documented By: ISAI Rifaximin (Rifaximin 550 Mg Tablet) 550 mg PO BID [facility] Last Admin: 08/09/23 11:14 Dose: 550 mg Documented By: PIOTR Sertraline HCl (Sertraline Hcl 25 Mg Tablet) 75 mg PO DAILY [facility] Last Admin: 08/09/23 08:15 Dose: 75 mg Documented By: PIOTR Simethicone (Simethicone 80 Mg Tab.Chew) 80 mg PO BID PRN PRN Reason: gas Sodium Chloride (0.9 % Sodium Chloride Flush 3 Ml Syringe) 3 ml IVFLUSH QSHIFT [facility] Last Admin: 08/09/23 08:16 Dose: 3 ml Documented By: PIOTR Tamsulosin HCl (Tamsulosin Hcl 0.4 Mg Capsule) 0.8 mg PO DAILY [facility] Last Admin: 08/09/23 08:16 Dose: 0.8 mg Documented By: PIOTR Labs 08/09/23 06:21 08/09/23 06:21 Labs: Laboratory Results - last 24 hr 08/08/23 08/08/23 08/08/23 15:40 18:16 20:05 MCV MCH MCHC RDW Plt Count MPV Immature Gran % (Auto) Neut % (Auto) Lymph % (Auto) [place] % (Auto) Eos % (Auto) Baso % (Auto) Lymph # (Auto) [place] # (Auto) Eos # (Auto) Baso # (Auto) Abs Immat Gran (auto) Absolute Neuts (auto) Absolute Nucleated RBC Nucleated RBC % (auto) Anion Gap Estim Creat Clear Calc Estimated GFR POC Glucose 135 H 146 H Fasting Glucose Calcium Total Bilirubin AST ALT Alkaline Phosphatase Ammonia 69 H Total Protein Albumin 08/09/23 08/09/23 08/09/23 06:21 07:29 11:17 MCV 96.5 MCH 32.0 MCHC 33.2 RDW 14.2 Plt Count 115 L MPV 12.4 Immature Gran % (Auto) 0.5 H Neut % (Auto) 73.0 Lymph % (Auto) 12.1 L [place] % (Auto) 10.4 Eos % (Auto) 3.7 Baso % (Auto) 0.3 Lymph # (Auto) 1.6 [place] # (Auto) 1.4 H Eos # (Auto) 0.5 H Baso # (Auto) 0.0 Abs Immat Gran (auto) 0.06 H Absolute Neuts (auto) 9.6 H Absolute Nucleated RBC 0.000 Nucleated RBC % (auto) 0.0 Anion Gap 12 Estim Creat Clear Calc 116.6 Estimated GFR > 60 POC Glucose 110 142 H Fasting Glucose 106 H Calcium 9.7 Total Bilirubin 1.3 H AST 30 ALT 17 Alkaline Phosphatase 114 Ammonia Total Protein 6.7 Albumin 3.4 L Assessment and Plan (1) Acute respiratory failure with hypoxia and hypercarbia: Status: Acute Plan 77 Y M with AGUEDA, non-compliant with CPAP, CHF (review [facility]-diastolic chf,hypertrophic CM), and known decubitus ulcers, presenting from nursing facility w/ reportedly chronic back, abdominal, and groin pain, found to be encephalopathic, hypoxic, and hypercarbic, placed on BiPAP. 1.Acute respiratory failure with hypoxia and hypercarbia , mulifactorial (pneumonia,diastolic chf excerebation , noncompliance with cpap) -good response to therapies -rehab to set up BiPAP prior to patient's return 2.Toxic metabolic encephalopathy -improving.. Minimal response to lactulose... Continue same -add rifimixan 3. Hypertension -acceptable control on current therapies -adjust as indicated 4.Bilateral buttocks with moisture associated skin damage/incontinence associated dermatitis present on admission seen by wound nurse they recommend wound care: 1. Turn and Reposition every 2 hours and as needed for patient comfort.? Use pillows or wedges to support off loading positions. 2. Off Load all bony prominences with use of pillows and heel boots if needed.? Apply Preventative foams where needed. ? 3. Monitor for incontinence and moisture control, use barrier creams when needed for prevention and treatment. 4. Provide adequate and supplemental nutrition.? 5. Continue low air loss mattress = specialty ICU bed. 6. When applicable maintain blood glucose levels per Providers order. 7. Abdominal skin fold - Cleanse with Ph blanced wipes allow to dry. Apply light layer of traid to wound bed. Tuck Interdry AG Sheet into skin fold to wick and translocate moisture away from skin fold.? Be sure to leave at least 2 inch of fabric exposed outside of skin fold.? Change when soiled. 8. Buttock - Off Load Pressure - Cleanse with PH balance spray or wipes, pat dry. ?Apply thin layer of Triad to wound bed - only pat and dab no scrub and rub when soiling occurs. Reapply thin layer PRN after each episode of incontinence. Lovenox Full code Requires ongoing hospitalization to ensure safe transfer to rehab with BiPAP Quality Stroke Does the patient have a stroke diagnosis?: No VTE Prior VTE?: No VTE Risk Level:: Medical - moderate - high VTE Device Contraindication: N/A - Device Ordered VTE Drug Contraindication: N/A - Med Ordered
[2023-08-09 16:13] LABS: Glucose, Whole Blood 130 mg/dL (60-115)
[2023-08-09 20:29] LABS: Glucose, Whole Blood 161 mg/dL (60-115)
[2023-08-09] MEDS: QUEtiapine Fumarate 25 MG TABLET 12.5 MG PO (20:37)
[2023-08-09] MEDS: Insulin Lispro 100 UNIT/ML 3 ML VIAL SUBCUT (20:47)
[2023-08-09] MEDS: Atropine Sulfate 1 % Ophth Sol 2 ML BOTTLE 1 DROP EYE-BOTH (21:11)
[2023-08-10] MEDS: 0.9 % Sodium Chloride Flush 3 ML SYRINGE IVFLUSH ×2 (01:38→08:47)
[2023-08-10 03:45] VITALS: BP 158/70; PULSE 94; RESP 20; TEMP 36.5; O2SAT 96
[2023-08-10 06:00] VITALS: BMI 42.7
[2023-08-10 06:31] LABS: MANUAL DIFF FLAG NO
[2023-08-10 06:39] LABS: Basophils Absolute Auto 0.1 X10*3/uL (0.0-0.2); Basophils Percent Auto 0.5 % (0-2); Eosinophils Absolute Auto 0.4 X10*3/uL (0.0-0.4); Eosinophils Percent Auto 3.1 % (0-4); Hematocrit 44.3 % (42.0-52.0); Imm Gran Abs Auto 0.06 X10*3/uL (0.00-0.03); Imm Gran Pct Auto 0.4 % (0.0-0.4); Lymphocytes Absolute Auto 1.9 X10*3/uL (1.2-4.9); Lymphocytes Percent Auto 13.7 % (20-40); Mean Corpuscular HGB Conc 33.9 g/dl (31.0-36.0); Mean Corpuscular Hemoglobin 32.5 pg (27.0-33.0); Mean Corpuscular Volume 95.9 fL (80.0-98.0); Mean Platelet Volume 12.1 fL (9.4-12.4); Monocytes Absolute Auto 1.4 X10*3/uL (0.1-1.2); Monocytes Percent Auto 10.3 % (2-11); Neutrophils Absolute Auto 9.9 x10*3/uL (2.0-8.3); Platelet Count 138 X10*3/uL (160-400); Red Blood Count 4.62 X10*6/uL (4.60-5.80); Red Cell Distribution Width 14.2 % (11.0-16.0); White Blood Count 13.8 X10*3/uL (4.8-10.8)
[2023-08-10 06:52] LABS: Ammonia 66 umol/L (13-55)
[2023-08-10 07:15] LABS: Alanine Aminotransferase 14 U/L (0-40); Albumin Level 3.3 g/dL (3.5-5.0); Alkaline Phosphatase 118 U/L (39-117); Anion Gap 12 (12-20); Aspartate Amino Transferase 19 U/L (5-37); Bilirubin Total 1.3 mg/dL (0.0-1.0); Blood Urea Nitrogen 19 mg/dL (9-16); Calcium 9.6 mg/dL (8.4-10.2); Carbon Dioxide 25 mmol/L (22-29); Chloride 107 mmol/L (96-108); Creatinine Clr Calc Pharmacy 124.3; Estimated Glomerular Filt Rate > 60; Glucose Fasting 102 mg/dL (60-99); Potassium 4.4 mmol/L (3.3-5.1); Sodium 140 mmol/L (135-145); Total Protein 6.1 g/dL (6.5-8.0)
[2023-08-10 08:00] VITALS: BP 122/64; PULSE 91; RESP 16; TEMP 36.3; O2SAT 96
[2023-08-10 08:05] LABS: Glucose, Whole Blood 102 mg/dL (60-115)
[2023-08-10] MEDS: Finasteride 5 MG TABLET PO (08:47)
[2023-08-10] MEDS: Tamsulosin HCL 0.4 MG CAPSULE 0.8 MG PO (08:47)
[2023-08-10] MEDS: Magnesium Oxide 400 MG TABLET PO ×2 (08:47→20:14)
[2023-08-10] MEDS: Sertraline HCL 25 MG TABLET 75 MG PO (08:47)
[2023-08-10] MEDS: amLODIPine Besylate 5 MG TABLET PO (08:47)
[2023-08-10] MEDS: Metoprolol Succinate ER 50 MG TAB.ER.24H 150 MG PO (08:47)
[2023-08-10] MEDS: rifAXIMin 550 MG TABLET PO ×2 (08:47→20:14)
[2023-08-10] MEDS: Apixaban 5 MG TABLET PO ×2 (08:47→20:14)
[2023-08-10] MEDS: Lidocaine 4 % Patch ADH..PATCH 2 PATCH TRANSDERMA (08:48)
[2023-08-10 11:35] LABS: Glucose, Whole Blood 149 mg/dL (60-115)
[2023-08-10 11:56] VITALS: BP 128/65; PULSE 89; RESP 16; TEMP 36.3; O2SAT 96
--- NOTE | 2023-08-10 12:05 | HO.PM.IMPN ---
Subjective Subjective Date of Service: 08/10/23 Interval History: Appears back to baseline as compared to notes. Review of Systems Denies chest pain Denies shortness of breath Denies nausea vomiting diarrhea Denies fever chills Physical Exam Vital Signs: Vital Signs: Last Vital Signs Temp 97.4 F 08/10/23 11:56 Pulse 89 08/10/23 11:56 Resp 16 08/10/23 11:56 BP 128/65 08/10/23 11:56 Pulse Ox 96 08/10/23 11:56 O2 Del Method Room Air 08/10/23 11:56 O2 Flow Rate 2 08/06/23 07:36 FiO2 45 08/09/23 00:00 BMI result Body Mass Index 42.7 Const: Other: Awake alert oriented x2 easily reoriented Resp: Other: Clear to auscultation bilaterally no rales rhonchi or wheezes Cardio: Other: No S4; positive S1-S2; no S3 murmurs rubs or gallops GI: Other: Soft nontender nondistended normoactive bowel sounds Extrem: Other: No edema bilaterally Objective Data Active Medications Acetaminophen (Acetaminophen 325 Mg Tablet) 975 mg PO Q6H PRN PRN Reason: Pain, Mild (Pain Scale 1-3) Last Admin: 08/09/23 04:31 Dose: 975 mg Documented By: BRANDIN Amlodipine Besylate (Amlodipine Besylate 5 Mg Tablet) 5 mg PO DAILY [facility]; Protocol Last Admin: 08/10/23 08:47 Dose: 5 mg Documented By: BRIDGETTE Apixaban (Apixaban 5 Mg Tablet) 5 mg PO BID [facility] Last Admin: 08/10/23 08:47 Dose: 5 mg Documented By: BRIDGETTE Artificial Tears (Artificial Tears 15 Ml Drops) 2 drop EYE-BOTH Q4H PRN PRN Reason: Dry Eye(S) Atropine Sulfate (Atropine Sulfate 1 % Ophth Corine 2 Ml Bottle) 1 drop EYE-BOTH BEDTIME [facility] Last Admin: 08/09/23 21:11 Dose: 1 drop Documented By: KVNG Buspirone HCl (Buspirone Hcl 5 Mg Tablet) 5 mg PO BID PRN PRN Reason: Anxiety Finasteride (Finasteride 5 Mg Tablet) 5 mg PO DAILY [facility] Last Admin: 08/10/23 08:47 Dose: 5 mg Documented By: BRIDGETTE Glucose (Glucose Gel 15 Gm Gel..Gram.) 15 gm PO Q15M PRN; Protocol PRN Reason: per Hypoglycemia Standing Ord. Dextrose (D10) 250 mls @ 750 mls/hr IV Q15M PRN; Protocol PRN Reason: per Hypoglycemia Standing Ord. Insulin Human Lispro (Insulin Lispro 100 Unit/Ml 3 Ml Vial) 0 unit SUBCUT QIDACHS [facility]; Protocol Last Admin: 08/10/23 11:36 Dose: Not Given Documented By: BRIDGETTE Non-Admin Reason: No Insulin Coverage Lactulose (Lactulose 20 Gm/30 Ml Solution) 20 gm PO BID [facility] Last Admin: 08/10/23 08:48 Dose: Not Given Documented By: BRIDGETTE Non-Admin Reason: Patient Refused Lidocaine (Lidocaine 4 % Patch Adh..Patch) 2 patch TRANSDERMA DAILY [facility]; Protocol Last Admin: 08/10/23 08:48 Dose: 2 patch Documented By: BRIDGETTE Lidocaine HCl (Lidocaine 4 % Cream Kit) 1 appl TOPICAL Q8H PRN PRN Reason: to buttock Magnesium Oxide (Magnesium Oxide 400 Mg Tablet) 400 mg PO BID [facility] Last Admin: 08/10/23 08:47 Dose: 400 mg Documented By: BRIDGETTE Metoprolol Succinate (Metoprolol Succinate Er 50 Mg Tab.Er.24h) 150 mg PO DAILY [facility]; Protocol Last Admin: 08/10/23 08:47 Dose: 150 mg Documented By: BRIDGETTE Quetiapine Fumarate (Quetiapine Fumarate 25 Mg Tablet) 12.5 mg PO BEDTIME [facility] Last Admin: 08/09/23 20:37 Dose: 12.5 mg Documented By: KVNG Rifaximin (Rifaximin 550 Mg Tablet) 550 mg PO BID [facility] Last Admin: 08/10/23 08:47 Dose: 550 mg Documented By: BRIDGETTE Sertraline HCl (Sertraline Hcl 25 Mg Tablet) 75 mg PO DAILY [facility] Last Admin: 08/10/23 08:47 Dose: 75 mg Documented By: BRIDGETTE Simethicone (Simethicone 80 Mg Tab.Chew) 80 mg PO BID PRN PRN Reason: gas Sodium Chloride (0.9 % Sodium Chloride Flush 3 Ml Syringe) 3 ml IVFLUSH QSHIFT [facility] Last Admin: 08/10/23 08:47 Dose: 3 ml Documented By: BRIDGETTE Tamsulosin HCl (Tamsulosin Hcl 0.4 Mg Capsule) 0.8 mg PO DAILY [facility] Last Admin: 08/10/23 08:47 Dose: 0.8 mg Documented By: BRIDGETTE Labs 08/10/23 06:15 08/10/23 06:15 Labs: Laboratory Results - last 24 hr 08/09/23 08/09/23 08/10/23 16:07 20:10 06:15 MCV 95.9 MCH 32.5 MCHC 33.9 RDW 14.2 Plt Count 138 L MPV 12.1 Immature Gran % (Auto) 0.4 Neut % (Auto) 72.0 Lymph % (Auto) 13.7 L Sevier % (Auto) 10.3 Eos % (Auto) 3.1 Baso % (Auto) 0.5 Lymph # (Auto) 1.9 Sevier # (Auto) 1.4 H Eos # (Auto) 0.4 Baso # (Auto) 0.1 Abs Immat Gran (auto) 0.06 H Absolute Neuts (auto) 9.9 H Absolute Nucleated RBC 0.000 Nucleated RBC % (auto) 0.0 Anion Gap 12 Estim Creat Clear Calc 124.3 Estimated GFR > 60 POC Glucose 130 H 161 H Fasting Glucose 102 H Calcium 9.6 Total Bilirubin 1.3 H AST 19 ALT 14 Alkaline Phosphatase 118 H Ammonia 66 H Total Protein 6.1 L Albumin 3.3 L 08/10/23 08/10/23 07:47 11:28 MCV MCH MCHC RDW Plt Count MPV Immature Gran % (Auto) Neut % (Auto) Lymph % (Auto) Sevier % (Auto) Eos % (Auto) Baso % (Auto) Lymph # (Auto) Sevier # (Auto) Eos # (Auto) Baso # (Auto) Abs Immat Gran (auto) Absolute Neuts (auto) Absolute Nucleated RBC Nucleated RBC % (auto) Anion Gap Estim Creat Clear Calc Estimated GFR POC Glucose 102 149 H Fasting Glucose Calcium Total Bilirubin AST ALT Alkaline Phosphatase Ammonia Total Protein Albumin Assessment and Plan (1) Acute respiratory failure with hypoxia and hypercarbia: Status: Acute Plan 77 Y M with AGUEDA, non-compliant with CPAP, [facility]di[facility] chf,hypertrophic CM), and known decubitus ulcers, presenting from nursing facility w/ reportedly chronic back, abdominal, and groin pain, found to be encephalopathic, hypoxic, and hypercarbic, placed on BiPAP. 1.Acute respiratory failure with hypoxia and hypercarbia , mulifactorial (pneumonia,diastolic chf excerebation , noncompliance with cpap) -good response to therapies -rehab to set up BiPAP prior to patient's return.. Awaiting authorization 2.Toxic metabolic encephalopathy -improving.. Minimal response to lactulose... Continue same -add rifimixan 3. Hypertension -acceptable control on current therapies -adjust as indicated 4.Bilateral buttocks with moisture associated skin damage/incontinence associated dermatitis present on admission seen by wound nurse they recommend wound care: 1. Turn and Reposition every 2 hours and as needed for patient comfort.? Use pillows or wedges to support off loading positions. 2. Off Load all bony prominences with use of pillows and heel boots if needed.? Apply Preventative foams where needed. ? 3. Monitor for incontinence and moisture control, use barrier creams when needed for prevention and treatment. 4. Provide adequate and supplemental nutrition.? 5. Continue low air loss mattress = specialty ICU bed. 6. When applicable maintain blood glucose levels per Providers order. 7. Abdominal skin fold - Cleanse with Ph blanced wipes allow to dry. Apply light layer of traid to wound bed. Tuck Interdry AG Sheet into skin fold to wick and translocate moisture away from skin fold.? Be sure to leave at least 2 inch of fabric exposed outside of skin fold.? Change when soiled. 8. Buttock - Off Load Pressure - Cleanse with PH balance spray or wipes, pat dry. ?Apply thin layer of Triad to wound bed - only pat and dab no scrub and rub when soiling occurs. Reapply thin layer PRN after each episode of incontinence. Lovenox Full code Requires ongoing hospitalization to ensure safe transfer to rehab with BiPAP Quality Stroke Does the patient have a stroke diagnosis?: No VTE Prior VTE?: No VTE Risk Level:: Medical - moderate - high VTE Device Contraindication: N/A - Device Ordered VTE Drug Contraindication: N/A - Med Ordered
[2023-08-10 15:19] VITALS: BP 124/78; PULSE 92; RESP 16; TEMP 36.4; O2SAT 94
[2023-08-10 16:31] LABS: Glucose, Whole Blood 137 mg/dL (60-115)
[2023-08-10 20:00] VITALS: BP 136/66; PULSE 91; RESP 20; TEMP 36.3; O2SAT 95
[2023-08-10] MEDS: Lactulose 20 GM/30 ML SOLUTION PO (20:14)
[2023-08-10] MEDS: QUEtiapine Fumarate 25 MG TABLET 12.5 MG PO (20:14)
[2023-08-10] MEDS: Atropine Sulfate 1 % Ophth Sol 2 ML BOTTLE 1 DROP EYE-BOTH (20:15)
[2023-08-10 20:47] LABS: Glucose, Whole Blood 170 mg/dL (60-115)
[2023-08-10] MEDS: Insulin Lispro 100 UNIT/ML 3 ML VIAL SUBCUT (22:17)
[2023-08-10 23:11] VITALS: PULSE 99; RESP 18; O2SAT 95
[2023-08-11] VITALS (10 sets, daily range): BP systolic 126–154; BP diastolic 67–81; PULSE 84–98; RESP 16–20; TEMP 36.1–36.2; O2SAT 92–96; BMI 41.6
[2023-08-11 07:31] LABS: Glucose, Whole Blood 107 mg/dL (60-115)
[2023-08-11] MEDS: Tamsulosin HCL 0.4 MG CAPSULE 0.8 MG PO (07:56)
[2023-08-11] MEDS: Metoprolol Succinate ER 50 MG TAB.ER.24H 150 MG PO (07:56)
[2023-08-11] MEDS: Sertraline HCL 25 MG TABLET 75 MG PO (07:56)
[2023-08-11] MEDS: rifAXIMin 550 MG TABLET PO ×2 (07:57→20:24)
[2023-08-11] MEDS: Lactulose 20 GM/30 ML SOLUTION PO ×2 (07:57→20:23)
[2023-08-11] MEDS: Finasteride 5 MG TABLET PO (07:57)
[2023-08-11] MEDS: Apixaban 5 MG TABLET PO ×2 (07:57→20:24)
[2023-08-11] MEDS: amLODIPine Besylate 5 MG TABLET PO (07:57)
[2023-08-11] MEDS: Magnesium Oxide 400 MG TABLET PO ×2 (07:57→20:24)
[2023-08-11] MEDS: 0.9 % Sodium Chloride Flush 3 ML SYRINGE IVFLUSH ×2 (07:58→17:13)
--- NOTE | 2023-08-11 10:06 | HO.WOUND ---
Wound Consult: Initial 77yr old?Male admitted to [facility] on 07/30/23 - See progress notes and H&P for detailed history.? Wound consult placed for Bridge of nose.? Patient agreeable to assessment and photo documentation.? Bridge of Nose Etiology: ??Device related Deep Tissue Injury - Resolving Measurements: 0.4cm x 0.6cm Intact Wound Bed: intact hyperpigmented tissue - resolving - central pigmentation remains nonblanchable but improving Drainage / Odor: None Edges: ? irregugaulr and attached Leanna wound: ? Intact no erythema noted - no Induration, Fluctuance or Warmth noted Pain: denies Goals of Treatment: ? No topical interventions needed - no device in use at this time - continue to off load pressure from the site Bilateral Buttocks continues to be MASD -IAD related and not pressure related continue with Triad to protect from moisture and friction and allow for moist wound healing. Abdominal Skin Folds Etiology: ??MASD - Intertrigo Goals of Treatment: ? Triad to protect from friction and allow for moist wound healing - interdry for moisture management Recommendations: 1. Turn and Reposition every 2 hours and as needed for patient comfort.? Use pillows or wedges to support off loading positions. 2. Off Load all bony prominences with use of pillows and heel boots if needed.? Apply Preventative foams where needed. ? 3. Monitor for incontinence and moisture control, use barrier creams when needed for prevention and treatment. 4. Provide adequate and supplemental nutrition.? 5. Continue low air loss mattress = specialty ICU bed. 6. When applicable maintain blood glucose levels per Providers order. 7. Abdominal skin fold - Cleanse with Ph blanced wipes allow to dry. Apply light layer of traid to wound bed. Tuck Interdry AG Sheet into skin fold to wick and translocate moisture away from skin fold.? Be sure to leave at least 2 inch of fabric exposed outside of skin fold.? Change when soiled. 8. Buttock - Off Load Pressure - Cleanse with PH balance spray or wipes, pat dry. ?Apply thin layer of Triad to wound bed - only pat and dab no scrub and rub when soiling occurs. Reapply thin layer PRN after each episode of incontinence. 9. Bridge of Nose - No topical interventions needed at this time as device is not in use nor needed at this time. Should pressure need to be applied to the bridge of the nose recommend foam dressing application prior to device. Peeled back and assessed Q shift and changed every 3 days. Re-consult wound care Nurse for wound deterioration or wound changes.
--- NOTE | 2023-08-11 10:26 | MHC.CLN ---
F/U: PO INTAKE: 75% X 4 MEALS DIET RX: CHOPPED PER JOB ANALYSIS MANAGER PT RECEIVING GELATEIN SUPPLEMENT TID WITH MEAL TRAY SUPP TO PROVIDE 480KCALS, 60G PROTEIN CONTINUE TO MONITOR PO INTAKE AND ENCOURAGE SUPPLEMENTS
[2023-08-11] MEDS: Lidocaine 4 % Patch ADH..PATCH 2 PATCH TRANSDERMA (11:26)
[2023-08-11 11:49] LABS: Glucose, Whole Blood 145 mg/dL (60-115)
--- NOTE | 2023-08-11 12:48 | MHC.SL.SWA ---
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 Patient continues to appear to expect to be fed (likely fed 1-1 @ group home) but can be independent if given ample encouragement and orientation. 1-1 supervision with assistance/encouragement as needed is still required at all meals. Liquid Consistency and Strategies for Safe Swallow: Liquid Intake Recommendation: Thin Liquid Intake Strategies: No Straws Solid Food Consistency: Dietary Recommendations: Chopped/Advanced (NDD3) Oral Medication Intake: Whole with Puree Please contact the pharmacy regarding appropriate crushable or liquid drug formulations that are available whenever modified delivery is recommended. Compensatory Strategies and Precautions to be Taken for Safe Swallow: Sitting Upright (90 deg) Small Bites and Sips Alternate Liquids/Solids Rate of Ingestion Change Oral Check Avoid Specific Foods Supervision While Eating and Drinking for Safe Swallow: Total Supervision (1:1) Foods to Avoid: mixed consistencies Swallowing Recommended Treatments: Compens. Strategy Educat. Recommendation for Speech: Inpatient Speech Therapy Comment: Recommend UPGRADE to CHOPPED/ADVANCED solids and THIN liquids. Continue w/ full supervision and meds crushed/whole in puree d/t mentation. Do not try feeding patient if he is lethargic or not attending to meal. Recommend INDUSTRIAL MAINTENANCE MANAGER continue to follow to trial upgrade to pt's baseline of regular solids. Frequency/Duration: Date Range for Service Req: Timeline to reassess: Station Usher Clinican/Clinical Fellow: No Supervisory Statement: I have reviewed and agree with the student/clinical fellow's documentation: N/A Speech Language Pathologist: Lanette Lemons M.A., CCC-INDUSTRIAL MAINTENANCE MANAGER
--- NOTE | 2023-08-11 14:17 | HO.PM.IMPN ---
Subjective Subjective Date of Service: 08/11/23 Interval History: Appears back to baseline as compared to notes. Review of Systems Denies chest pain Denies shortness of breath Denies nausea vomiting diarrhea Denies fever chills Physical Exam Vital Signs: Vital Signs: Last Vital Signs Temp 97.1 F 08/11/23 12:00 Pulse 88 08/11/23 12:00 Resp 16 08/11/23 12:00 BP 126/71 08/11/23 12:00 Pulse Ox 94 08/11/23 12:00 O2 Del Method Room Air 08/11/23 12:00 O2 Flow Rate 4 08/11/23 04:00 FiO2 45 08/09/23 00:00 BMI result Body Mass Index 41.6 Const: Other: Awake alert oriented x2 easily reoriented Resp: Other: Clear to auscultation bilaterally no rales rhonchi or wheezes Cardio: Other: No S4; positive S1-S2; no S3 murmurs rubs or gallops GI: Other: Soft nontender nondistended normoactive bowel sounds Extrem: Other: No edema bilaterally Objective Data Active Medications Acetaminophen (Acetaminophen 325 Mg Tablet) 975 mg PO Q6H PRN PRN Reason: Pain, Mild (Pain Scale 1-3) Last Admin: 08/09/23 04:31 Dose: 975 mg Documented By: BRANDIN Amlodipine Besylate (Amlodipine Besylate 5 Mg Tablet) 5 mg PO DAILY [facility]; Protocol Last Admin: 08/11/23 07:57 Dose: 5 mg Documented By: MEHDI Apixaban (Apixaban 5 Mg Tablet) 5 mg PO BID [facility] Last Admin: 08/11/23 07:57 Dose: 5 mg Documented By: MEHDI Artificial Tears (Artificial Tears 15 Ml Drops) 2 drop EYE-BOTH Q4H PRN PRN Reason: Dry Eye(S) Atropine Sulfate (Atropine Sulfate 1 % Ophth Corine 2 Ml Bottle) 1 drop EYE-BOTH BEDTIME [facility] Last Admin: 08/10/23 20:15 Dose: 1 drop Documented By: KVNG Buspirone HCl (Buspirone Hcl 5 Mg Tablet) 5 mg PO BID PRN PRN Reason: Anxiety Finasteride (Finasteride 5 Mg Tablet) 5 mg PO DAILY [facility] Last Admin: 08/11/23 07:57 Dose: 5 mg Documented By: MEHDI Glucose (Glucose Gel 15 Gm Gel..Gram.) 15 gm PO Q15M PRN; Protocol PRN Reason: per Hypoglycemia Standing Ord. Dextrose (D10) 250 mls @ 750 mls/hr IV Q15M PRN; Protocol PRN Reason: per Hypoglycemia Standing Ord. Insulin Human Lispro (Insulin Lispro 100 Unit/Ml 3 Ml Vial) 0 unit SUBCUT QIDACHS [facility]; Protocol Last Admin: 08/11/23 11:51 Dose: Not Given Documented By: MEHDI Non-Admin Reason: No Insulin Coverage Lactulose (Lactulose 20 Gm/30 Ml Solution) 20 gm PO BID [facility] Last Admin: 08/11/23 07:57 Dose: 20 gm Documented By: MEHDI Lidocaine (Lidocaine 4 % Patch Adh..Patch) 2 patch TRANSDERMA DAILY [facility]; Protocol Last Admin: 08/11/23 11:26 Dose: 2 patch Documented By: MEHDI Lidocaine HCl (Lidocaine 4 % Cream Kit) 1 appl TOPICAL Q8H PRN PRN Reason: to buttock Magnesium Oxide (Magnesium Oxide 400 Mg Tablet) 400 mg PO BID [facility] Last Admin: 08/11/23 07:57 Dose: 400 mg Documented By: MEHDI Metoprolol Succinate (Metoprolol Succinate Er 50 Mg Tab.Er.24h) 150 mg PO DAILY [facility]; Protocol Last Admin: 08/11/23 07:56 Dose: 150 mg Documented By: MEHDI Quetiapine Fumarate (Quetiapine Fumarate 25 Mg Tablet) 12.5 mg PO BEDTIME [facility] Last Admin: 08/10/23 20:14 Dose: 12.5 mg Documented By: KVNG Rifaximin (Rifaximin 550 Mg Tablet) 550 mg PO BID [facility] Last Admin: 08/11/23 07:57 Dose: 550 mg Documented By: MEHDI Sertraline HCl (Sertraline Hcl 25 Mg Tablet) 75 mg PO DAILY [facility] Last Admin: 08/11/23 07:56 Dose: 75 mg Documented By: MEHDI Simethicone (Simethicone 80 Mg Tab.Chew) 80 mg PO BID PRN PRN Reason: gas Sodium Chloride (0.9 % Sodium Chloride Flush 3 Ml Syringe) 3 ml IVFLUSH QSHIFT [facility] Last Admin: 08/11/23 07:58 Dose: 3 ml Documented By: MEHDI Tamsulosin HCl (Tamsulosin Hcl 0.4 Mg Capsule) 0.8 mg PO DAILY [facility] Last Admin: 08/11/23 07:56 Dose: 0.8 mg Documented By: MEHDI Labs 08/10/23 06:15 08/10/23 06:15 Labs: Laboratory Results - last 24 hr 08/10/23 08/10/23 08/11/23 16:19 20:37 07:15 POC Glucose 137 H 170 H 107 08/11/23 11:29 POC Glucose 145 H Assessment and Plan (1) Acute respiratory failure with hypoxia and hypercarbia: Status: Acute Plan 77 Y M with AGUEDA, non-compliant with CPAP, CHF (review [facility] records-diastolic chf,hypertrophic CM), and known decubitus ulcers, presenting from nursing facility w/ reportedly chronic back, abdominal, and groin pain, found to be encephalopathic, hypoxic, and hypercarbic, placed on BiPAP. 1.Acute respiratory failure with hypoxia and hypercarbia , mulifactorial (pneumonia,diastolic chf excerebation , noncompliance with cpap) -good response to therapies -rehab to set up BiPAP prior to patient's return.. Awaiting authorization to return 2.Toxic metabolic encephalopathy -improving.. Minimal response to lactulose... Continue same -add rifimixan 3. Hypertension -acceptable control on current therapies -adjust as indicated 4.Bilateral buttocks with moisture associated skin damage/incontinence associated dermatitis present on admission seen by wound nurse they recommend wound care: 1. Turn and Reposition every 2 hours and as needed for patient comfort.? Use pillows or wedges to support off loading positions. 2. Off Load all bony prominences with use of pillows and heel boots if needed.? Apply Preventative foams where needed. ? 3. Monitor for incontinence and moisture control, use barrier creams when needed for prevention and treatment. 4. Provide adequate and supplemental nutrition.? 5. Continue low air loss mattress = specialty ICU bed. 6. When applicable maintain blood glucose levels per Providers order. 7. Abdominal skin fold - Cleanse with Ph blanced wipes allow to dry. Apply light layer of traid to wound bed. Tuck Interdry AG Sheet into skin fold to wick and translocate moisture away from skin fold.? Be sure to leave at least 2 inch of fabric exposed outside of skin fold.? Change when soiled. 8. Buttock - Off Load Pressure - Cleanse with PH balance spray or wipes, pat dry. ?Apply thin layer of Triad to wound bed - only pat and dab no scrub and rub when soiling occurs. Reapply thin layer PRN after each episode of incontinence. Lovenox Full code Requires ongoing hospitalization to ensure safe transfer to rehab with BiPAP Quality Stroke Does the patient have a stroke diagnosis?: No VTE Prior VTE?: No VTE Risk Level:: Medical - moderate - high VTE Device Contraindication: N/A - Device Ordered VTE Drug Contraindication: N/A - Med Ordered
--- NOTE | 2023-08-11 15:59 | MHC.CM.PN ---
Per MD rounds Patient is ready to discharge. [facility] spoke [facility] management coordinator. She stated the the MD needs to approve pt's return to [facility]. A call was received from Agtaa at 4pm. She reported that the insurance authorization has not been received yet. She states that definitely tomorrow, auth will be ready. The patients has been notified that auth has not been received. The discharge is planned for tomorrow. [facility].
[2023-08-11 16:10] LABS: Glucose, Whole Blood 136 mg/dL (60-115)
[2023-08-11] MEDS: QUEtiapine Fumarate 25 MG TABLET 12.5 MG PO (20:24)
[2023-08-11 21:17] LABS: Glucose, Whole Blood 156 mg/dL (60-115)
[2023-08-11] MEDS: Insulin Lispro 100 UNIT/ML 3 ML VIAL SUBCUT (21:33)
[2023-08-11] MEDS: Atropine Sulfate 1 % Ophth Sol 2 ML BOTTLE 1 DROP EYE-BOTH (22:16)
[2023-08-12] VITALS: BP 138/85; PULSE 87; RESP 20; TEMP 36.3; O2SAT 96
[2023-08-12] MEDS: 0.9 % Sodium Chloride Flush 3 ML SYRINGE IVFLUSH ×2 (00:59→07:53)
[2023-08-12 03:52] VITALS: BP 136/72; PULSE 79; RESP 18; TEMP 36.3; O2SAT 95
[2023-08-12 05:57] VITALS: BMI 41.1
[2023-08-12 07:28] LABS: Glucose, Whole Blood 106 mg/dL (60-115)
[2023-08-12 07:44] VITALS: BP 140/82; PULSE 95
[2023-08-12] MEDS: Magnesium Oxide 400 MG TABLET PO (07:44)
[2023-08-12] MEDS: Apixaban 5 MG TABLET PO (07:44)
[2023-08-12] MEDS: Metoprolol Succinate ER 50 MG TAB.ER.24H 150 MG PO (07:44)
[2023-08-12] MEDS: Tamsulosin HCL 0.4 MG CAPSULE 0.8 MG PO (07:44)
[2023-08-12] MEDS: Sertraline HCL 25 MG TABLET 75 MG PO (07:44)
[2023-08-12] MEDS: Finasteride 5 MG TABLET PO (07:45)
[2023-08-12] MEDS: rifAXIMin 550 MG TABLET PO (07:45)
[2023-08-12] MEDS: Lactulose 20 GM/30 ML SOLUTION PO (07:45)
[2023-08-12 07:54] VITALS: BP 140/82
[2023-08-12] MEDS: amLODIPine Besylate 5 MG TABLET PO (07:54)
[2023-08-12 07:58] VITALS: BP 146/82; PULSE 95; RESP 18; TEMP 36.9; O2SAT 95
[2023-08-12] MEDS: Lidocaine 4 % Patch ADH..PATCH 2 PATCH TRANSDERMA (09:58)
[2023-08-12 11:29] LABS: Glucose, Whole Blood 140 mg/dL (60-115)
--- NOTE | 2023-08-12 11:49 | P.DS_ITS ---
DS: Providers Provider Date of Service: 08/12/23 Date of admission: 07/30/23 00:57 Primary care physician: Sandrine Braun MD Consults: 07/30/23 07:00 Consult to Pulmonology Routine Consulting Provider: [facility] Pulmonology Services Reason for consultation: Sleep apnea, somnolence, resp acidosis Has provider been notified: No 07/30/23 07:55 Consult to Wound Care Routine Reason for consultation: Sacral ulcer 08/02/23 04:45 Consult to Wound Care Routine Reason for consultation: MDPI to bridge of nose- CPAP mask changed to under the nose cushion mask 08/03/23 07:51 Consult to Psychiatry Routine Consulting Provider: Psych Covering Reason for consultation: dementia with behavioural disturbances. DS: Diagnosis Discharge Diagnosis (1) Acute respiratory failure with hypoxia and hypercarbia: Status: Acute DS: Summary Hospital Course Hospital Course: Adiel Arciniega is a 77 years old man with past medical history significant for obstructive sleep apnea not using CPAP, decubitus ulcers, hypertrophic cardiomyopathy, anxiety, depression, obesity and CHF was brought to the emergency department via ambulance from [facility] for left lower back pain evaluation. HPI was obtained from patient's chart and ED provider as the patient was quite lethargic. It seems that he has been getting Tylenol for pain without significant relief. The patient also was complaining of left leg edema and swelling for the last month and was found to have an oxygen saturation 86% on room air. According to ED provider the patient came to the hospital for right groin pain and left lower quadrant pain patient has history of right groin pain for many years. It seems like yesterday the right groin pain came back and more intense. In the ED he was found to have low O2 sat of 86 % on room air and was placed on 4 L/min. He also received treatment with CPAP and BiPAP on and off while getting evaluated in the emergency department. He was also found to have mild degree of tachycardia and tachypnea. His last blood pressure is 116/68. Blood workup showed no leukocytosis. Hemoglobin starting 0.9 and platelets 122. There are no significant electrolyte imbalances. CO2 is 34, creatinine 1.11 and BUN 2. BNP is 346. LFTs are normal. Urinalysis showed microscopic hematuria. CXR showed stable enlargement of the cardiac silhouette, question left lung bronchial wall dizziness infiltrate and small left pleural effusion versus prominent epicardial fat. Abdominal pelvis CT scan showed question of some edema in the head of the pancreas but the exam is limited by motion artifact, incidental enlarged fatty liver, cholelithiasis, splenomegaly and marked BPH. It also a left mass which could be assessed or solid mass. ED tx: Ketorolac 15 mg IV, Lasix 60 mg IV, IV contrast and ondansetron 4 mg IV. Hospital Course Patient was admitted to general medical floor and treated with IV Lasix IV antibiotics and CPAP. CT scan of the head failed to show any abnormalities. He was seen in consultation by Psychiatry in his meds were adjusted. He continued to improve and at the day of discharge is essentially at his baseline and he is medically acceptable to return to [facility] He can be followed up by receiving physician and further plans and treatment as per receiving facility Time Attestation Discharge Coordination Time (in mins): 35 Quality: Safe Use of Opioids Does Pt have an Active Cancer Diagnosis on the Problem List?: No Quality: Stroke Does the patient have a stroke diagnosis?: No Physical Exam Vital Signs: Vital Signs: Last Vital Signs Temp 98.5 F 08/12/23 07:58 Pulse 95 08/12/23 07:58 Resp 18 08/12/23 07:58 BP 146/82 H 08/12/23 07:58 Pulse Ox 95 08/12/23 07:58 O2 Del Method Room Air 08/12/23 07:58 O2 Flow Rate 4 08/11/23 04:00 FiO2 45 08/09/23 00:00 BMI result Body Mass Index 41.1 Const: Other: Awake alert oriented x2 easily reoriented Resp: Other: Clear to auscultation bilaterally no rales rhonchi or wheezes Cardio: Other: No S4; positive S1-S2; no S3 murmurs rubs or gallops GI: Other: Soft nontender nondistended normoactive bowel sounds Extrem: Other: No edema bilaterally DS: Data Data Completed and Pending Labs on day of discharge: Laboratory Results - last 24 hr 08/11/23 08/11/23 08/11/23 11:29 15:54 21:06 POC Glucose 145 H 136 H 156 H 08/12/23 08/12/23 07:11 11:07 POC Glucose 106 140 H Discharge Plan Discharge Anticipated Discharge Date/Time: 06/21/24 11:03 Patient Disposition: Xfer LT Discharge Diagnosis: Acute hypoxic respiratory failure with hypercarbia secondary to pneumonia Referrals: Sarina Bashir [Outside] - 1 Week Sandrine Braun MD [Primary Care Provider] - 1 Week Discharge Medications: New amlodipine 5 mg Tablet 5 mg PO DAILY Qty: 30 0RF Protocol: Hold for SBP< HOLD for SBP < : 90 Xifaxan 550 mg Tablet 550 mg PO BID Qty: 60 0RF lactulose 20 gram/30 mL Solution 20 g PO BID Qty: 450 0RF Continued amlodipine 5 mg Tablet 5 mg PO DAILY gabapentin 300 mg Capsule 300 mg PO DAILY furosemide [Lasix] 20 mg Tablet 40 mg PO DAILY metformin 500 mg Tablet 500 mg PO DAILY acetaminophen 325 mg Tablet 650 mg PO Q4H PRN (Reason: mild pain/temperature) ipratropium-albuterol 0.5 mg-3 mg(2.5 mg base)/3 mL Solution For Nebulization 3 ml INHALATION Q6H PRN (Reason: Shortness Of Breath) metoprolol succinate 100 mg Tablet Extended Release 24 Hr 150 mg PO DAILY lidocaine 4 % Cream 1 appl TOPICAL Q8H PRN (Reason: to buttock) olanzapine 2.5 mg Tablet 2.5 mg PO BEDTIME sertraline 25 mg Tablet 75 mg PO DAILY simethicone 80 mg Tablet,Chewable 80 mg PO BID PRN (Reason: gas ) Muscle Rub 15-10 % Cream 1 appl TOPICAL Q8H PRN (Reason: Pain) apixaban 5 mg Tablet 5 mg PO BID zinc oxide-white petrolatum 17-57 % Paste 1 appl TOPICAL TID Rx Instructions: to buttock magnesium oxide 400 mg magnesium Tablet 400 mg PO BID carboxymethylcellulose sodium 1 % Drops 2 drp OPHTHALMIC (EYE) Q4H PRN (Reason: Dry Eye(S)) atropine sulfate (PF) 1 % Dropperette 1 drp OPHTHALMIC (EYE) BEDTIME Rx Instructions: until 09/21/23 for surgery on 09/22/23 tamsulosin 0.4 mg capsule 0.8 mg PO DAILY finasteride 5 mg tablet 5 mg PO DAILY 90 Days Qty: 90 1RF Changed gabapentin 600 mg Tablet 300 mg PO BEDTIME Qty: 10 0RF buspirone 10 mg Tablet 5 mg PO BID Qty: 10 0RF Discontinued trazodone 50 mg Tablet 25 mg PO BEDTIME Discharge Orders: Discharge Order (Routine); Ordered 08/12/23 Ordered By: Kolby Wilkerson Diet: Chopped advanced NDD 3 Activity on Discharge: As tolerated Stand Alone Forms: Patient Portal Discharge page Print Language: Cypriot Care Plan Goals: BiPAP at night 12/ room air Wound care: Bilateral buttocks with moisture associated skin damage/incontinence associated dermatitis present on admission seen by wound nurse they recommend wound care: 1. Turn and Reposition every 2 hours and as needed for patient comfort.? Use pillows or wedges to support off loading positions. 2. Off Load all bony prominences with use of pillows and heel boots if needed.? Apply Preventative foams where needed. ? 3. Monitor for incontinence and moisture control, use barrier creams when needed for prevention and treatment. 4. Provide adequate and supplemental nutrition.? 5. Continue low air loss mattress = specialty ICU bed. 6. When applicable maintain blood glucose levels per Providers order. 7. Abdominal skin fold - Cleanse with Ph blanced wipes allow to dry. Apply light layer of traid to wound bed. Tuck Interdry AG Sheet into skin fold to wick and translocate moisture away from skin fold.? Be sure to leave at least 2 inch of fabric exposed outside of skin fold.? Change when soiled. 8. Buttock - Off Load Pressure - Cleanse with PH balance spray or wipes, pat dry. ?Apply thin layer of Triad to wound bed - only pat and dab no scrub and rub when soiling occurs. Reapply thin layer PRN after each episode of incontinence. will need wound care follow upPrint Health Concerns: Minimize sedatives Plan of Treatment: Outpatient follow-up with PCP Assessment: As above
--- NOTE | 2023-08-12 11:52 | P.CDIM_ITS ---
PROVIDER RESPONSE TEXT: To clarify, the appropriate diagnosis supported by the clinical indicators: Deep Tissue Injury bridge of nose: suspected QUERY TEXT: PHYSICIAN'S DOCUMENTATION REQUEST Date of Query: 08/12/2023 08:31 AM EDT Patient Name: KATHIE TAPIA Admit Date: 07/30/2023 Dear Kolby Wilkerson, A review of the medical record indicates additional documentation may be needed. Please review below and update the documentation accordingly. Clinical Indicators: Wound care notes dated 08/10 - Device related Deep Tissue Injury - resolving Bridge of Nose 0.4cm x 0.6cm intact Continue to off load pressure from the site. Based on the above, could you please provide further information regarding the ulcer/wound/injury: Deep Tissue Injury bridge of nose resolved, possible, suspected Other (explain) Clinically unable to determine (explain) Thank you, Nona Borden, CCS, CDIS Use of terms such as suspected, likely, concern for, or probable (associated with a specific diagnosi s that is being evaluated, monitored, or treated as if it exists) are acceptable and can be coded in the inpatient se tting, when documented at the time of discharge. Please use your independent medical judgment in providing your response. THIS QUERY IS PART OF THE PERMANENT MEDICAL RECORD
[2023-08-12 11:56] VITALS: BP 131/70; PULSE 83; RESP 18; TEMP 36; O2SAT 95
--- NOTE | 2023-08-12 13:09 | MHC.SL.DTX ---
Dysphagia Diet modifications: Last documented Solid diet consistencies: Chopped/Advanced (NDD3) Last documented Liquid consistency: Thin Changes made to current diet?: No Liquid Consistency and Strategies: Liquid Intake Recommendation: Thin Compensatory Strategies for Safe Swallow: No Straws Compensatory Strategies for Safe Swallow(b): Sitting Upright (90 deg) Small Bites and Sips Alternate Liquids/Solids Rate of Ingestion Change Oral Check Avoid Specific Foods Solid Food Consistency: Dietary Recommendations: Chopped/Advanced (NDD3) Additional Modifications to Solids: Recommend continue on current diet of Chopped/Advanced (NDD3) with Thin liquids (NO STRAWS), pills crushed in puree. Patient continues to appear to expect to be fed (likely fed 1-1 @ long-term) but can be independent if given ample encouragement and orientation. 1-1 supervision with assistance/encouragement as needed is still required at all meals. Recommend re-assessment by POLICE AIDE at his next level of care to align his dietary restriction with their house diet. Oral Medication Intake: Whole with Puree Strategies and Precautions to be Taken for Safe Swallow: Sitting Upright (90 deg) Small Bites and Sips Alternate Liquids/Solids Rate of Ingestion Change Oral Check Avoid Specific Foods Supervision While Eating and/Drinking: Total Supervision (1:1) Foods to Avoid: mixed consistencies Swallowing Recommended Treatments: Compens. Strategy Educat. Level of Impact on: Daily activities: Interpersonal interactions: Education: Employment: Community: Prognosis for Improvement: Good Recommendation for Speech: Inpatient Speech Therapy Comment: Recommend continue on current diet of Chopped/Advanced (NDD3) with Thin liquids (NO STRAWS), pills crushed in puree. Patient continues to appear to expect to be fed (likely fed 1-1 @ long-term) but can be independent if given ample encouragement and orientation. 1-1 supervision with assistance/encouragement as needed is still required at all meals. Recommend re-assessment by POLICE AIDE at his next level of care to align his dietary restriction with their house diet. Additional Comments: Patient was reportedly on an unmodified diet at [facility]. Treatment: Pt was seen by POLICE AIDE for follow-up. He is upright in his recliner. He is asking several times about leaving today. POLICE AIDE told him he would have to wait for confirmation, making him upset. Per EMR not CM reports just waiting for authorization to return to LTC at [facility]. Pt tolerated bites of Regular Solids (dry crackers) with etyv-le-yubppifn delay and [id number] oral residue. He was provided Thin Liquids via cup to help, wash it down successfully with reduced oral residue and with no overt s/s of aspiration. He went on to complete all of the cracker and all of the water with delay, but no overt s/s of aspiration. Recommend re-assessment by POLICE AIDE at his next level of care to align his dietary restriction with their house diet. Prime Minister Clinican/Clinical Fellow: No Supervisory Statement: I have reviewed and agree with the student/clinical fellow's documentation: N/A Speech Language Pathologist: Florencio Morales M.A., CCC-POLICE AIDE
--- NOTE | 2023-08-12 13:28 | MHC.CM.PN ---
Patient is medically cleared and has [facility] auth to return to LTC @ [facility] today at 3PMtoday, via [facility](arranged by Vickie @ the [facility]). CM spoke with /HCP/Carla @ [phone] and addressed IMM with her (original will be mailed certified letter to Carla and a copy has been placed on the chart).
--- NOTE | 2023-08-12 14:58 | HO.WOUND ---
Wound Consult: Follow up 77yr old?Male admitted to [facility] on 07/30/23 - See progress notes and H&P for detailed history.? Wound consult follow up for Bridge of nose prior to discharge.? Patient agreeable to assessment and photo documentation.? 08/11/23 Bridge of Nose Todays follow up 08/12/23 - Resolved tissue injury - no pressure injury noted at this time. Goals of Treatment: ? No topical interventions needed - no device in use at this time - continue to off load pressure from the site No new topical orders needed. Recommendations: 1. Turn and Reposition every 2 hours and as needed for patient comfort.? Use pillows or wedges to support off loading positions. 2. Off Load all bony prominences with use of pillows and heel boots if needed.? Apply Preventative foams where needed. ? 3. Monitor for incontinence and moisture control, use barrier creams when needed for prevention and treatment. 4. Provide adequate and supplemental nutrition.? 5. Continue low air loss mattress = specialty ICU bed. 6. When applicable maintain blood glucose levels per Providers order. 7. Abdominal skin fold - Cleanse with Ph blanced wipes allow to dry. Apply light layer of traid to wound bed. Tuck Interdry AG Sheet into skin fold to wick and translocate moisture away from skin fold.? Be sure to leave at least 2 inch of fabric exposed outside of skin fold.? Change when soiled. 8. Buttock - Off Load Pressure - Cleanse with PH balance spray or wipes, pat dry. ?Apply thin layer of Triad to wound bed - only pat and dab no scrub and rub when soiling occurs. Reapply thin layer PRN after each episode of incontinence. 9. Bridge of Nose - No topical interventions needed at this time as device is not in use nor needed at this time. Should pressure need to be applied to the bridge of the nose recommend foam dressing application prior to device. Peeled back and assessed Q shift and changed every 3 days. Re-consult wound care Nurse for wound deterioration or wound changes.
[2023-08-12 16:27] LABS: Glucose, Whole Blood 94 mg/dL (60-115)
== END 2023-08-12 17:17 | DRG 193 ==
LOC: HO.ED 07-30 00:26 → HO.IMC 07-30 05:07 → HO.EDOVER 07-30 06:09 → HO.ICU 07-30 08:28 → HO.IMC 08-02 14:29
PROVIDERS: Emergency Medicine; Hospitalist; Internal Medicine; Internal Medicine Critical Care Medicine; Admitting Provider Internal Medicine; Emergency Provider Emergency Medicine Emergency Medical Services; PCP Family Medicine Geriatric Medicine; Referring Provider Family Medicine Geriatric Medicine; Visit Provider Hospitalist
DX: J18.9 Pneumonia, unspecified organism (principal); G92.8 Other toxic encephalopathy; J96.02 Acute respiratory failure with hypercapnia; J96.01 Acute respiratory failure with hypoxia; I50.33 Acute on chronic diastolic (congestive) heart failure; I42.1 Obstructive hypertrophic cardiomyopathy; E66.2 Morbid (severe) obesity with alveolar hypoventilation; Z68.41 Body mass index [BMI] 40.0-44.9, adult; I13.0 Hypertensive heart and chronic kidney disease with heart failure and stage 1 through stage 4 chronic kidney disease, or unspecified chronic kidney disease; F05 Delirium due to known physiological condition; E87.0 Hyperosmolality and hypernatremia; F31.9 Bipolar disorder, unspecified; R13.10 Dysphagia, unspecified; L24.A2 Irritant contact dermatitis due to fecal, urinary or dual incontinence; E83.39 Other disorders of phosphorus metabolism; L89.816 Pressure-induced deep tissue damage of head; F03.90 Unspecified dementia, unspecified severity, without behavioral disturbance, psychotic disturbance, mood disturbance, and anxiety; E11.40 Type 2 diabetes mellitus with diabetic neuropathy, unspecified; F43.10 Post-traumatic stress disorder, unspecified; N18.2 Chronic kidney disease, stage 2 (mild); E11.22 Type 2 diabetes mellitus with diabetic chronic kidney disease; Z91.199 Patient's noncompliance with other medical treatment and regimen due to unspecified reason; Z79.01 Long term (current) use of anticoagulants; Z79.84 Long term (current) use of oral hypoglycemic drugs; Z79.899 Other long term (current) drug therapy
CPT/HCPCS: 36415; 70450; 71045; 74177; 76775; 80048; 80053; 80202; 81001; 81003; 82140; 82803; 82947; 83036; 83690; 83735; 83880; 84100; 84145; 84443; 84484; 85025; 87640; 87641; 92526; 92610; 93005; 93306; 94640; 94660; 94799; 99285; C1758; J0131; J1120; J1170; J1644; J1885; J1920; J1940; J2405; J2543; J3370; J3371; Q9957; Q9967

== ENCOUNTER → 2023-07-29 11:58 | Outpatient (BNV) | payer OTHER, SELFPAY | PROVIDERS: Emergency Provider Emergency Medicine Emergency Medical Services; PCP Family Medicine Geriatric Medicine; Visit Provider Internal Medicine | DX: I48.91 Unspecified atrial fibrillation (principal); R94.31 Abnormal electrocardiogram [ECG] [EKG] | CPT/HCPCS: 93010 ==

== ENCOUNTER 2023-07-30 00:57 | Outpatient (BNV) | payer OTHER, MEDICARE, SELFPAY | END 2023-07-30 07:00 | PROVIDERS: Admitting Provider Internal Medicine; Emergency Provider Emergency Medicine Emergency Medical Services; PCP Family Medicine Geriatric Medicine; Visit Provider Internal Medicine | DX: I42.2 Other hypertrophic cardiomyopathy (principal); I34.81 Nonrheumatic mitral (valve) annulus calcification | CPT/HCPCS: 93306 ==

== ENCOUNTER → 2023-07-30 00:57 | Outpatient (BNV) | payer OTHER, MEDICARE, SELFPAY | PROVIDERS: Admitting Provider Internal Medicine; Emergency Provider Emergency Medicine Emergency Medical Services; PCP Family Medicine Geriatric Medicine; Visit Provider Internal Medicine Pulmonary Disease | DX: J96.22 Acute and chronic respiratory failure with hypercapnia (principal); E66.2 Morbid (severe) obesity with alveolar hypoventilation; I50.9 Heart failure, unspecified | CPT/HCPCS: 99223; 99232; 99233 ==

== ENCOUNTER → 2023-07-30 00:57 | Outpatient (BNV) | payer OTHER, SELFPAY | PROVIDERS: Admitting Provider Internal Medicine; Emergency Provider Emergency Medicine Emergency Medical Services; PCP Family Medicine Geriatric Medicine; Visit Provider Internal Medicine | DX: J96.01 Acute respiratory failure with hypoxia (principal); J96.02 Acute respiratory failure with hypercapnia; G93.40 Encephalopathy, unspecified | CPT/HCPCS: 99223; 99232; 99233; 99239 ==

== ENCOUNTER → 2023-07-30 00:57 | Outpatient (BNV) | payer OTHER, MEDICARE, SELFPAY | PROVIDERS: Admitting Provider Internal Medicine; Emergency Provider Emergency Medicine Emergency Medical Services; PCP Family Medicine Geriatric Medicine; Visit Provider Psychiatry & Neurology Psychiatry | DX: R41.0 Disorientation, unspecified (principal); Z13.30 Encounter for screening examination for mental health and behavioral disorders, unspecified | CPT/HCPCS: 99222 ==

== ENCOUNTER → 2023-07-30 00:57 | Outpatient (BNV) | payer OTHER, MEDICARE, SELFPAY | PROVIDERS: Admitting Provider Internal Medicine; Emergency Provider Emergency Medicine Emergency Medical Services; PCP Family Medicine Geriatric Medicine; Visit Provider Internal Medicine Critical Care Medicine | DX: I50.9 Heart failure, unspecified (principal); J96.01 Acute respiratory failure with hypoxia; J96.02 Acute respiratory failure with hypercapnia; E66.2 Morbid (severe) obesity with alveolar hypoventilation | CPT/HCPCS: 99291; 99292; 99499 ==